=== PATIENT | male | born 1955 | race Caucasian/White ===

== ENCOUNTER 2016-08-19 12:17 | Inpatient (IN) | payer MEDICARE, MEDICAID ==
[~2016-08-19] VITALS: Ht 182.9 cm; Wt 98.9 kg
[~2016-08-19 12:17] MED LIST: CALC-250 PO; CEPH500C PO; CHOL20003 PO; CLOR3.755 PO; CYCL10TA45 PO; DESV50TA PO; FURO40TA4 PO; GLIM4TAB PO; INSU100C SQ; INSU100V6 SQ; KCL20TCR PO; L.AC1CAP6 PO; LACT10SO33 PO; LACT10SO5 PO; LEVO750T39 PO; LORA0.5T PO; MELA10TA2 PO; MELA1TAB15 PO; MILK THISTLE 1000 MG PO; MORP-33 PO; MORP15TA PO; MORP15TA4 PO; MPR22T TP; MUPI22OI TOP; MUPI22OI2 NS; NCT14P TD; NICO1PAT6 TD; OMEP20CA12 PO; PANT40TA PO; POTA20TA15 PO; RIFA550T PO; RIFA550T3 PO; RT-ALBUINH INH; SPIR50TA27 PO; SPIR50TA6 PO; SULF1TAB35 PO; TRAZ-144 PO; TRAZ-28 PO
--- NOTE | 2016-08-19 12:28 | History & Physicial ---
History of Present Illness History of Present Illness Reason for visit/HPI PT IS A 60 Y/O MALE WHO IS WELL KNOWN TO ME FROM CLINIC. HE PRESENTED TO MY OFFICE TODAY WITH COUGH, CONGESTION, WEAKNESS, AND WAS HYPOXIC WITH AN OXYGEN LEVEL OF 87% ON ROOM AIR. THE PATIENT WAS TOO DYSPNEIC TO BE DISCHARGED TO HOME IN THE CARE OF HIS FAMILY. Date of Admission 08/19/16 I consulted on this patient on 08/19/16 12:28 Attending Physician Brittany Lyn MD Admitting Physician Brittany Lyn MD Consult Allergies and Home Medications Allergies Coded Allergies: No Known Drug Allergies (Unverified , 03/08/13) Home Medications Albuterol Sulfate 18 Gm Hfa.aer.ad 2 PUFF INH Q4H PRN PRN SHORTNESS OF BREATH ( Reported) Azithromycin 250 Mg Tablet #3 250 MG PO DAILY start on 08/21/16 Prescribed by: BRITTANY LYN on 08/20/16912 Cefdinir 300 Mg Capsule #8 300 MG PO BID start on 08/21/16 Prescribed by: BRITTANY LYN on 08/20/16912 Cholecalciferol (Vitamin D3) 2,000 Unit Capsule 2,000 UNIT PO HS (Reported) Desvenlafaxine Succinate 50 Mg Tab.sr.24h 50 MG PO DAILY @ 1200 (Reported) Furosemide 40 Mg Tablet 20 MG PO DAILY@0800,1200 (Reported) TAKES 1/2 OF A (40 MG) TABLET Glimepiride 4 Mg Tablet 8 MG PO DAILY (Reported) TAKES 2 (4 MG) TABLETS Ipratropium/Albuterol Sulfate 3 Ml Ampul.neb #60 3 ML INH UD use three times daily x 4 days then one time daily thereafter and may use every 2 hours prn for acute shortness of breath Prescribed by: BRITTANY LYN on 08/20/16912 Lactobacillus Acidophilus 1 Each Capsule #21 1 EACH PO TID Prescribed by: BRITTANY LYN on 08/20/16912 Melatonin/Pyridoxine HCl (B6) 1 Each Tab.mphase 10 MG PO HS PRN PRN SLEEP ( Reported) Mirtazapine 15 Mg Tablet 15 MG PO HS (Reported) Morphine Sulfate 15 Mg Tablet.er 15 MG PO TID PRN PRN SEVERE PAIN (Reported) Omeprazole 20 Mg Capsule.dr 20 MG PO BID (Reported) Potassium Chloride 20 Meq Tab.er.prt 20 MEQ PO EVERY AFTERNOON (Reported) Rifaximin 550 Mg Tablet 550 MG PO BID (Reported) Trazodone HCl 50 Mg Tablet 50 MG PO HS (Reported) Past Jgfyndv-Nygqli-Logswv Hx Patient Social History Marrital Status: single Living Status: IN OWN HOME Employed/Student: retired Smoking Status: Current Everyday Smoker 2nd Hand Smoke Exposure: No Physical Abuse Screen: No Sexual Abuse: No Recent Foreign Travel: No Contact w/other who traveled: No Recent Hopitalizations: No Recent Infectious Disease Expo: No Immunizations Up To Date Tetanus Booster (TDap): Less than 5yrs Date of Pneumonia Vaccine: Jul 10, 2008 Date of Influenza Vaccine: May 10, 2015 Seasonal Allergies Seasonal Allergies: No Surgeries HX Surgeries: Yes (FACIAL AND HEAD RECONSTRUCTION SECONDARY TO TRAUMA PER PT; VENA CAVA FILTER) Surgeries: Vascular Surgery Respiratory Hx Respiratory Disorders: Yes Cardiovascular Hx Cardiovascular Disorders: No Neurological Hx Neurological Disorders: Yes (MEMORY LOSS) Reproductive System Hx Reproductive Disorders: No Sexually Transmitted Disease: No HIV/AIDS: No Genitourinary Hx Genitourinary Disorders: No Gastrointestinal Hx Gastrointestinal Disorders: Yes (HEAPTITIS C--CHRONIC LIVER FAILURE) Gastrointestinal Disorders: Gastroesophageal Reflux, Liver Disease/Jaundice, Hepatitis, Cirrhosis Musculoskeletal Hx Musculoskeletal Disorders: Yes (CHRONIC NECK PAIN, LUMBAR COMPRESSION FRACTURE ) Musculoskeletal Disorders: Chronic Back Pain, Fractures Endocrine Hx Endocrine Disorders: Yes (INSULIN + ORAL MEDICATIONS) Endocrine Disorders: Diabetes, Insulin dep HEENT HX ENT Disorders: No Loss of Vision: Denies Hearing Impairment: Denies Cancer Hx Cancer: Yes Cancer: Liver Psychosocial Hx Psychiatric Problems: Yes Behavioral Health Disorders: Anxiety Integumentary HX Skin/Integumentary Disorder: No Blood Transfusions Hx Blood Disorders: No Adverse Reaction to a Blood Tr: No Reviewed Nursing Assessment Reviewed/Agree w Nursing PMH: Yes Family Medical History Significant Family History: No Pertinent Family Hx, Hypertension Family Hx: Patient reports no known family medical history. Constitutional: No chills, No diaphoresis EENTM: No hoarseness, No mouth pain, No throat pain Respiratory: cough dyspnea on exertion short of breath wheezing Cardiovascular: No chest pain, No edema Gastrointestinal: No abdominal pain, No constipation, No diarrhea Genitourinary: no symptoms reported Musculoskeletal: back pain Psychiatric/Neurological: Anxiety All Other Systems Reviewed Negative Unless Noted: Yes Physical Exam Vital Signs Capillary Refill : General Appearance: WD/WN Mild Distress Eyes: Bilateral Eye EOMI, Bilateral Eye Normal Inspection, Bilateral Eye PERRL HEENT: PERRL/EOMI TMs Normal Normal ENT Inspection Pharynx Normal Neck: Full Range of Motion Supple Respiratory: Chest Non Tender Decreased Breath Sounds Wheezing Cardiovascular: Regular Rate, Rhythm Gastrointestinal: Normal Bowel Sounds No Organomegaly No Pulsatile Mass Non Tender Soft Rectal: Deferred Extremity: Normal Capillary Refill Normal Inspection Normal Range of Motion Non Tender No Calf Tenderness No Pedal Edema Neurologic/Psychiatric: Alert Oriented x3 No Motor/Sensory Deficits Normal Mood/Affect Skin: Warm/Dry Lymphatic: No Adenopathy Assessment/Plan Assessment and Plan COPD EXACERBATION PNEUMONIA HYPOXEMIA TOBACCOISM WEAKNESS HEPATITIS C CHRONIC PAIN PT STARTED ON COPD EXACERBATION AND PNEUMONIA PROTOCOL. PT HAD SIGNIFICANT IMPROVEMENT IN HIS STATUS WITH BREATHING TREATMENTS, IV ANTIBIOTICS, AND STEROID. EDUCATION ABOUT TOBACCOISM, MONITOR SYMPTOMS - IF HE CONTINUES TO IMPROVE HE WILL POTENTIALLY BE DISCHARGED TO HOME TOMORROW IF HE IS BETTER IN THE MORNING. RESTART PAIN MEDS Admission Diagnosis COPD EXACERBATION PNEUMONIA HYPOXEMIA TOBACCOISM WEAKNESS HEPATITIS C CHRONIC PAIN BRITTANY LYN MD Aug 19, 2016 12:28
--- OUTSIDE RECORDS SUMMARY | 2016-08-19 12:56 | XMS REPORT | Continuity of Care Document ---
Author Author [facility] Organization [facility] Address Unknown Phone Unavailable Care Team Providers Care Business Analytics Specialist Name Role Phone Osei Lyn PCP [phone] Source Comments Some departments are not documenting in the electronic medical record. If you do not see the information that you expected, contact Release of Information in the Health Information Management department at [phone] for further assistance in locating additional records.[facility] Active Allergies and Adverse Reactions No Known Allergies Current Medications Prescription Sig. Disp. Refills Start End Date Status Date desvenlafaxine(+) Take 50 mg by mouth Active (PRISTIQ) 50 mg PO tablet daily. glimepiride (AMARYL) 4 mg Take 8 mg by mouth daily Active tablet with breakfast. morphine SR (MS CONTIN; Take 15 mg by mouth three Active ORAMORPH SR) 15 mg tablet times daily as needed traZODone (DESYREL) 50 mg Take 100 mg by mouth at Active tablet bedtime daily. melatonin 10 mg tab Take 1 Tab by mouth at Active bedtime daily. cholecalciferol (VITAMIN Take 2,000 Units by mouth Active D-3) 1,000 units tablet daily. Indications: OTC supplement potassium chloride SR Take 20 mEq by mouth Active (K-DUR) 20 mEq tablet daily. furosemide (LASIX) 40 mg Take 40 mg by mouth Active tablet daily. omeprazole DR(+) Take 20 mg by mouth twice Active (PRILOSEC) 20 mg capsule daily. albuterol (VENTOLIN HFA, Inhale 1 Puff by mouth Active PROAIR HFA) 90 every 6 hours as needed mcg/actuation inhaler for Wheezing. lactulose 10 gram/15 mL Take 30 mL by mouth three 1892 mL 2 05/01/20 Active oral solution times daily. Titrate to 16 3-4 BMs/day rifAXIMin (XIFAXAN) 550 Take 1 Tab by mouth twice 60 Tab 11 06/24/20 Active mg tablet daily. 16 Active Problems Problem Noted Date End-stage liver disease (HCC) 05/10/2015 Hepatic encephalopathy (HCC) 05/10/2015 Esophageal varices (HCC) 05/10/2015 S/P TIPS (transjugular intrahepatic portosystemic shunt) 05/10/2015 Overview: Placed in 2010 Revision done in 11/2014 Type 2 diabetes mellitus with complication (HCC) 05/10/2015 Tobacco use 05/10/2015 Anemia 05/10/2015 Umbilical hernia 04/17/2015 HCC (hepatocellular carcinoma) (HCC) 02/21/2015 Major depressive disorder, recurrent episode, moderate (HCC) 03/22/2012 Most Recent Encounters Date Type Specialty Providers Description 07/31/2016 Orders Only Hepatology Sara Calderon End-stage liver disease (HCC); Hepatic fibrosis (HCC); End stage liver disease (HCC) 07/17/2016 Orders Only Hepatology Mely Jaeger APRN End stage liver disease (HCC) (Primary Dx) 07/17/2016 Orders Only Hepatology Mely Jaeger APRN Liver lesion ( Primary Dx); End stage liver disease (HCC) 07/17/2016 Result Letter Hepatology Blank Gordon RN 07/09/2016 Orders Only Hepatology Sara Calderon End-stage liver disease (HCC); Hepatocellular carcinoma (HCC); Type 2 diabetes mellitus with complication, without long-term current use of insulin (HCC) 07/07/2016 Orders Only Hepatology Mely Jaeger APRN End-stage liver disease (HCC) (Primary Dx); Hepatocellular carcinoma (HCC); Type 2 diabetes mellitus with complication, without long-term current use of insulin (HCC) 06/25/2016 Documentation Hepatology Aiden Basilio MD 06/24/2016 Scan Only Transplant Surgery Parisa Sheriff LPN 06/24/2016 Telephone Hepatology Mely Jaeger APRN Medication Refill 06/23/2016 Orders Only Hepatology Sara Calderon End-stage liver disease (HCC); Hepatic fibrosis (HCC) 06/18/2016 Orders Only Hepatology Mely Jaeger APRN End-stage liver disease (HCC) (Primary Dx); Hepatic fibrosis (HCC) 05/26/2016 Hospital Radiology Mely Jaeger APRN Encounter 05/26/2016 Orders Only Hepatology Calderon Sara End-stage liver disease (HCC) 05/26/2016 Screening Form 05/23/2016 Orders Only Hepatology Mely Jaeger APRN End-stage liver disease (HCC); HCC (hepatocellular carcinoma) (HCC); Type 2 diabetes mellitus with complication, without long-term current use of insulin (HCC); S/P TIPS (transjugular intrahepatic portosystemic shunt); Hepatic encephalopathy (HCC); Esophageal varices without bleeding, unspecified esophageal varices type (HCC); Screening for osteoporosis; Carcinoma of liver (HCC); Hepatic fibrosis (HCC); Routine adult health maintenance 05/22/2016 Orders Only Hepatology Mely Jaeger APRN End-stage liver disease (HCC) (Primary Dx); Hepatocellular carcinoma (HCC) Immunizations Name Dates Previously Given Next Due Tdap Vaccine 01/11/2009 Social History Tobacco Use Types Packs/Day Years Used Date Current Every Day Smoker Cigarettes 0.25 45 Smokeless Tobacco: Never Used Tobacco Cessation: Ready to Quit: Yes Comments: trying to quit Alcohol Use Drinks/Week oz/Week Comments No quit '08; moderate alcohol intake prior (up to 8 drinks/week) Last Filed Vital Signs Vital Sign Reading Time Taken Blood Pressure 96/80 05/01/2016 11:36 AM CDT Pulse 64 05/01/2016 11:36 AM CDT Temperature 36.6 C (97.8 F) 05/01/2016 11:36 AM CDT Respiratory Rate 20 05/01/2016 11:36 AM CDT Height 1.829 m (6') 05/01/2016 11:36 AM CDT Weight 102.059 kg (225 lb) 05/26/2016 10:50 AM CDT Body Mass Index 30.51 05/26/2016 10:50 AM CDT Oxygen Saturation 94% 05/01/2016 11:36 AM CDT Plan of Care Date Type Specialty Providers Description 08/28/2016 Appointment Hepatology Aiden Basilio MD [id number] [place] [address] [phone] (Fax) 11/17/2016 Appointment Radiology Mely Jaeger APRN [address] [place] [address] [phone] (Fax) Health Maintenance Due Date Last Done Comments Physical (Comprehensive) 1961 Exam Dilated Eye Exam 1972 Foot Exam 1972 Microalbumin 1972 Pneumonia Vaccine (Dm) 1972 Shingles Vaccine 2014 Influenza Vaccine 04/10/2016 Hba1c 05/02/2016 10/31/2015, 11/14/2014, 01/16/2014 Additional history exists Tetanus Vaccine 01/11/2019 01/11/2009 Colorectal Cancer 09/05/2020 09/05/2010, 07/11/2008, 06/09/2008 Screening Pertussis Vaccine Completed 01/11/2009 Results from Last 3 Months BASIC METABOLIC PANEL (07/31/2016 9:15 AM)Only the most recent of 2 results within the time period is included. Component Value Range Sodium 137 132-145 mEq/L Potassium 3.7 3.5-5.5 mEq/L Chloride 105 95-110 mEq/L CO2 24.0 24.0-34.0 meq/l Anion Gap 12 6-14 Glucose 205 (H) 60-125 mg/dL Creatinine 0.7 0.6-1.5 mg/dL eGFR Non 132 >59 ml/min/1.73m2 Blood Urea Nitrogen 12 9-27 mg/dL Calcium 8.4 (L) 8.5-10.8 mg/dL Specimen Blood Narrative Outside Lab Verified by Sara Gutierrez on 07/31/2016. CBC AND DIFF (07/31/2016 9:15 AM)Only the most recent of 2 results within the time period is included. Component Value Range White Blood Cells 5.32 5.00-10.0 k/ul RBC 4.36 4.20-5.40 M/ul Hemoglobin 13.7 (L) 14.0-17.0 g/dl Hematocrit 40.4 (L) 42.0-52.0 % MCV 92.7 80.0-97.0 fl MCHC 33.9 32.0-36.0 pg Platelet Count 52 (L) 150-400 K/uL Neutrophils 68.3 37.0-80.0 % Lymphocytes 17.1 10.0-50.0 % Monocytes 10.5 0.00-12.0 % Eosinophil 3.9 0.0-7.0 % Basophil 0.2 0.0-2.5 % Absolute Lymph Count 0.91 0.60-3.40 K/uL Absolute Monocyte Count 0.6 0.0-0.9 K/uL Absolute Neutrophil Count 3.63 3.63 K/uL Absolute Eosinophil Count 0.2 0.2 K/uL Absolute Basophil Count 0.0 0.0 K/uL Specimen Blood Narrative Outside Lab Verified by Sara Gutierrez on 07/31/2016. COMPREHENSIVE METABOLIC PANEL (06/17/2016 3:00 PM)Only the most recent of 2 results within the time period is included. Component Value Range Sodium 133 132-145 mEq/L Potassium 3.8 3.5-5.5 mEq/L Chloride 102 95-110 meq/l CO2 26.0 24.0-34.0 meq/l Glucose 272 (H) 60-125 mg/dL Blood Urea Nitrogen 9 9-27 mg/dL eGFR Non 168 >59 Anion Gap 9 6-14 Calcium 8.0 (L) 8.5-10.8 mg/dL Creatinine 0.5 (L) 0.6-1.5 mg/dl Specimen Blood Narrative Outside Lab Verified by Sara Gutierrez on 06/18/2016. CT ABDOMEN WO/W CONTRAST (05/26/2016 11:55 AM) Impressions Decrease in size of treated hepatomas in segment 4A and 4B without significant contrast enhancement (liver RADS treated with low probability of residual/ recurrent neoplasm). Finalized by Jimbo Metcalf M.D. on 05/26/2016 3:02 PM. Dictated by Jimbo Metcalf M.D. on 05/26/2016 2:[address] abdomen Indication: 60-year-old gentleman with end-stage liver disease and hepatocellular carcinoma for restaging Technique: Standard CT liver technique was used with precontrast scans for the abdomen, arterial, venous phase and delayed scans using Isovue-370 IV. Comparison is made with previous study of February 22, 2016 and November 22, 2015. Findings: Liver lesions: Segment 4A: There is mild decrease in size of the low density treated lesion in the dome of segment 4A now measuring 4.5 cm longest axis on image 02/01 compared with 5.7 cm previously.Some intrinsic high density is again noted along the medial margin of the lesion.No enhancement is identified. Segment 4B: There is decrease in size of the treated low density lesion measuring 3.0 cm longest axis on image 6/42 compared with 4.0 cm previously. No new lesions are identified. Cirrhosis and portal venous hypertension are again noted with unchanged mild splenomegaly, mild varices and no ascites.Embolization coils are again noted in the gastrohepatic region.A metallic TIPS remains in place. There is no adrenal mass.The kidneys are unremarkable.The pancreas appears normal.There is no central retroperitoneal adenopathy.Aorta remains normal in caliber with mild calcified plaque.Bowel loops are normal in caliber. Moderate lumbar spondylosis is again noted with stable old moderate central type compression deformity of L1. Procedure Note Interface, Radiant Results - ThuMay 26, 2016 3:[address] abdomen Indication: 60-year-old gentleman with end-stage liver disease and hepatocellular carcinoma for restaging Technique: Standard CT liver technique was used with precontrast scans for the abdomen, arterial, venous phase and delayed scans using Isovue-370 IV. Comparison is made with previous study of February 22, 2016 and November 22, 2015. Findings: Liver lesions: Segment 4A: There is mild decrease in size of the low density treated lesion in the dome of segment 4A now measuring 4.5 cm longest axis on image 6/25 compared with 5.7 cm previously. Some intrinsic high density is again noted along the medial margin of the lesion. No enhancement is identified. Segment 4B: There is decrease in size of the treated low density lesion measuring 3.0 cm longest axis on image 6/42 compared with 4.0 cm previously. No new lesions are identified. Cirrhosis and portal venous hypertension are again noted with unchanged mild splenomegaly, mild varices and no ascites. Embolization coils are again noted in the gastrohepatic region. A metallic TIPS remains in place. There is no adrenal mass. The kidneys are unremarkable. The pancreas appears normal. There is no central retroperitoneal adenopathy. Aorta remains normal in caliber with mild calcified plaque. Bowel loops are normal in caliber. Moderate lumbar spondylosis is again noted with stable old moderate central type compression deformity of L1. IMPRESSION Decrease in size of treated hepatomas in segment 4A and 4B without significant contrast enhancement (liver RADS treated with low probability of residual/ recurrent neoplasm). Finalized by Jimbo Metcalf M.D. on 05/26/2016 3:02 PM. Dictated by Jimbo Metcalf M.D. on 05/26/2016 2:52 PM. PROTIME INR (PT) (05/21/2016 12:15 PM) Component Value Range INR 1.4 (H) 0.9-1.1 Protime 16.4 (H) 11.3-14.1 sec Specimen Blood Narrative Outside Lab Verified by Sara Gutierrez on 05/22/2016.
[2016-08-19 13:00] VITALS: BP 129/68
[2016-08-19] MEDS ORDERED: methylPREDNISolone 125 MG (Solu-MEDROL) VIAL IVP NR (13:01)
[2016-08-19] MEDS: NS IV 1000 ML 1,000 ML IV SCH ×2 (13:05→23:20)
[2016-08-19] MEDS: cefTRIAXone INJECTION 1,000 MG in NORMAL SALINE (BAXTER MINI) 50 ML IV SCH (13:06)
[2016-08-19] MEDS: NICOTINE 7 MG (NICODERM) PATCH TD SCH (13:13)
[2016-08-19] MEDS: ENOXAPARIN 40 MG/0.4 ML (LOVENOX) SYR SC SCH (13:13)
[2016-08-19] MEDS ORDERED: CATHETER FLUSH 10 ML SYR IV PRN (13:15)
[2016-08-19] MEDS ORDERED: GLIM4TAB PO (13:17)
[2016-08-19] MEDS ORDERED: CIPR500T4 PO (13:17)
[2016-08-19] MEDS ORDERED: SPIR50TA2 PO (13:17)
[2016-08-19] MEDS ORDERED: MIRT15TA6 PO (13:17)
[2016-08-19 13:27] LABS: BASOPHILS % (AUTO) 1 % (0-10); EOSINOPHILS # (AUTO) 0.1 10^3/uL (0.0-0.3); EOSINOPHILS % (AUTO) 3 % (0-10); LYMPHOCYTES # (AUTO) 0.5 X 10^3 (1.0-4.0); LYMPHOCYTES % (AUTO) 13 % (12-44); MEAN CORPUSCULAR HEMOGLOBIN 31 PG (25-34); MEAN CORPUSCULAR HGB CONC 35 G/DL (32-36); MEAN CORPUSCULAR VOLUME 88 FL (80-99); MEAN PLATELET VOLUME 12.4 FL (7.4-10.4); MONOCYTES # (AUTO) 0.5 X 10^3 (0.0-1.0); MONOCYTES % (AUTO) 11 % (0-12); NEUTROPHILS # (AUTO) 3.1 X 10^3 (1.8-7.8); NEUTROPHILS % (AUTO) 73 % (42-75); PLATELET COUNT 49 10^3/uL (130-400); RED BLOOD COUNT 4.26 10^6/uL (4.35-5.85); RED CELL DISTRIBUTION WIDTH 15.2 % (10.0-14.5); WHITE BLOOD COUNT 4.3 10^3/uL (4.3-11.0)
[2016-08-19] MEDS ORDERED: RT-ALBUTEROL/IPRATROPIUM 3 ML (DUONEB) VIAL INH PRN (13:30)
[2016-08-19 13:41] LABS: ANION GAP 6 MMOL/L (5-14); BLOOD UREA NITROGEN 9 MG/DL (7-18); BUN/CREATININE RATIO 13; CALCIUM 8.4 MG/DL (8.5-10.1); CARBON DIOXIDE 27 MMOL/L (21-32); CHLORIDE 106 MMOL/L (98-107); CREATININE SERUM 0.67 MG/DL (0.60-1.30); GFR ESTIMATED > 60; GLUCOSE 138 MG/DL (70-105); POTASSIUM 3.8 MMOL/L (3.6-5.0); SODIUM 139 MMOL/L (135-145)
--- NOTE | 2016-08-19 13:43 | Diagnostic Imaging Report ---
INDICATION: Dyspnea and fever x 1 week. DISCUSSION: Two views of the chest were obtained with comparison made to 04/30/2016. The underlying COPD is stable. No focal consolidation, pleural fluid, or pneumothorax. Stable normal heart size. A vascular coil mass is again noted within the epigastric region. Age-related degenerative changes are noted throughout the thoracic spine. IMPRESSION: No acute cardiopulmonary process. Dictated by: Dictated on workstation # [id number]
[2016-08-19] MEDS: RT-ALBUTEROL/IPRATROPIUM 3 ML (DUONEB) VIAL INH SCH ×3 (14:00→21:46)
[2016-08-19] MEDS ORDERED: AZITHROMYCIN IV ADD-VANTAGE 500 MG in SODIUM CHLORIDE (ADD-VANTAGE) 250 ML IV ONE (14:00)
[2016-08-19] MEDS ORDERED: FLU TRIvalent (5 YOA+) 2016-17 (AFLURIA) 0.5 ML IM ONE (15:00)
[2016-08-19 16:00] VITALS: BP 120/75
[2016-08-19] MEDS: methylPREDNISolone 125 MG (Solu-MEDROL) VIAL IVP SCH ×2 (17:24→23:20)
[2016-08-19] MEDS: morphine ER 15 MG (MS CONTIN) TAB PO PRN (19:58)
[2016-08-19 20:13] VITALS: BP 136/72
[2016-08-19] MEDS ORDERED: traZODone 50 MG (DESYREL) TAB PO SCH (21:00)
[2016-08-19] MEDS ORDERED: MIRTAZAPINE 15 MG (REMERON) TAB PO SCH (21:00)
[2016-08-19] MEDS ORDERED: RIFAXIMIN 550 MG PO SCH (21:00)
[2016-08-19] MEDS ORDERED: OMEPRAZOLE 20 MG (PriLOSEC) CAP NON-FORMULARY PO SCH (21:00)
[2016-08-20 00:07] VITALS: BP 122/70
[2016-08-20] MEDS: RT-ALBUTEROL/IPRATROPIUM 3 ML (DUONEB) VIAL INH SCH ×4 (02:41→14:40)
[2016-08-20 03:05] VITALS: BP 124/71
[2016-08-20] MEDS: morphine ER 15 MG (MS CONTIN) TAB PO PRN (03:09)
[2016-08-20] MEDS: methylPREDNISolone 125 MG (Solu-MEDROL) VIAL IVP SCH ×3 (05:26→17:28)
[2016-08-20] MEDS ORDERED: VENlafaxine XR 75 MG (EFFEXOR XR) CAP PO SCH (07:00)
[2016-08-20] MEDS ORDERED: PANTOPRAZOLE 20 MG TABLET (PROTONIX) PO SCH (07:00)
[2016-08-20 08:00] VITALS: BP 161/56
[2016-08-20] MEDS ORDERED: MELA1TAB20 PO (08:53)
[2016-08-20] MEDS ORDERED: FUROSEMIDE 40 MG (LASIX) TAB PO SCH (09:00)
[2016-08-20] MEDS ORDERED: AZITHROMYCIN 250 MG TAB (ZITHROMAX) PO SCH (09:00)
[2016-08-20] MEDS ORDERED: SPIRONOLACTONE 25 MG (ALDACTONE) TAB PO SCH (09:00)
[2016-08-20] MEDS ORDERED: NON-FORMULARY MEDICATION 1 EA EA (Spironolactone 50 MG) PO SCH (09:00)
[2016-08-20] MEDS ORDERED: NICOTINE PATCH REMOVAL TP SCH (09:00)
[2016-08-20] MEDS ORDERED: GLIMEPIRIDE 4 MG (AMARYL) TAB PO SCH (09:00)
--- NOTE | 2016-08-20 09:09 | Discharge Summary ---
Diagnosis/Chief Complaint Date of Admission Aug 19, 2016 at 12:52 Date of Discharge Discharge Date: Aug 20, 2016 Admission Diagnosis Admission Diagnosis COPD EXACERBATION PNEUMONIA HYPOXEMIA TOBACCOISM WEAKNESS HEPATITIS C CHRONIC PAIN Discharge Diagnosis COPD EXACERBATION PNEUMONIA HYPOXEMIA TOBACCOISM WEAKNESS HEPATITIS C CHRONIC PAIN Reason Hospital Visit PT PRESENTED TO MY OFFICE ON 08/19/16 WITH DYSPNEA, ACUTE SHORTNESS OF BREATH AND HYPOXEMIA. HE CONTINUES TO SMOKE AND HAD BEEN HAVING COUGH AND SHORTNESS OF BREATH DESPITE DECREASE IN SMOKING, HIS SISTER WAS ACUTELY CONCERNED AND THE PT WAS ADMITTED TO THE HOSPITAL FOR CONCERN FOR PNEUMONIA IN THE FACE OF IMMUNOSUPPRESSION. Discharge Summary Discharge Physical Examination Allergies: Coded Allergies: No Known Drug Allergies (Unverified , 03/08/13) Vitals & I&Os General Appearance: Alert, Oriented X3, Cooperative HEENT: Atraumatic, PERRLA Respiratory: Other (DECREASED AIR MOVEMENT BUT BETTER THAN ON ADMISSION, AND NO LONGER WHEEZING) Cardiovascular: Regular Rate Abdominal: Normal Bowel Sounds, Soft Extremities: No Clubbing Skin: No Rashes Neuro: Normal Gait, Strength at 5/5 X4 Ext, Cranial Nerves 3-12 NL Psych/Mental Status: Mental Status NL, Mood NL Hospital Course COPD EXACERBATION PNEUMONIA HYPOXEMIA TOBACCOISM WEAKNESS HEPATITIS C CHRONIC PAIN PT STARTED ON PNEUMONIA PROTOCOL, STEROIDS, BREATHING TREATMENTS, AND PT SHOWED TREMENDOUS IMPROVEMENT IN SYMPTOMS- DISCHARGED ON APPROPRIATE MEDICATION - SEE MED DISCHARGE LIST. RESTARTED HOME MEDS. Discharge Condition at discharge IMPROVED Instructions to patient/family Please see electonic discharge instructions given to patient. Discharge Medications Reviewed and agree with Discharge Medication list on patient's Discharge Instruction sheet Clinical Quality Measures DVT/VTE Risk/Contraindication: Risk Factor Score Per Nursin RFS Level Per Nursing on Admit: 4+=Very High BRITTANY RIOS MD Aug 20, 2016 09:09
[2016-08-20] MEDS: NICOTINE 7 MG (NICODERM) PATCH TD SCH (09:12)
[2016-08-20] MEDS ORDERED: AZIT250T5 PO (09:13)
[2016-08-20] MEDS ORDERED: IPRA3AMP INH (09:13)
[2016-08-20] MEDS ORDERED: LACT1CAP8 PO (09:13)
[2016-08-20] MEDS ORDERED: CEFD300C3 PO (09:13)
--- NOTE | 2016-08-20 09:15 | Discharge Inst-Complex ---
PDI Med Rec & Follow Up Appt. New Medications: Cefdinir (Cefdinir) 300 Mg Capsule 300 MG PO BID start on 08/21/16 #8 CAP Lactobacillus Acidophilus (Acidophilus) 1 Each Capsule 1 EACH PO TID #21 CAP Azithromycin (Azithromycin) 250 Mg Tablet 250 MG PO DAILY start on 08/21/16 #3 TAB Ipratropium/Albuterol Sulfate (Iprat-Albut 0.5-3(2.5) mg/3 ml) 3 Ml Ampul.neb 3 ML INH UD use three times daily x 4 days then one time daily thereafter and may use every 2 hours prn for acute shortness of breath #60 Ref 4 EACH Continued Medications: Albuterol Sulfate (Ventolin Hfa) 18 Gm Hfa.aer.ad 2 PUFF INH Q4H PRN SHORTNESS OF BREATH Cholecalciferol (Vitamin D3) (Vitamin D3) 2,000 Unit Capsule 2000 UNIT PO HS Desvenlafaxine Succinate (Pristiq) 50 Mg Tab.sr.24h 50 MG PO DAILY @ 1200 Furosemide (Furosemide) 40 Mg Tablet 20 MG PO DAILY@0800,1200 TAKES 1/2 OF A (40 MG) TABLET Glimepiride (Glimepiride) 4 Mg Tablet 8 MG PO DAILY TAKES 2 (4 MG) TABLETS Melatonin/Pyridoxine HCl (B6) (Melatonin 10 mg Tablet) 1 Each Tab.mphase 10 MG PO HS PRN SLEEP MG Mirtazapine (Mirtazapine) 15 Mg Tablet 15 MG PO HS Morphine Sulfate (Morphine Sulfate ER) 15 Mg Tablet.er 15 MG PO TID PRN SEVERE PAIN Omeprazole (Omeprazole) 20 Mg Capsule.dr 20 MG PO BID Potassium Chloride (Potassium Chloride) 20 Meq Tab.er.prt 20 MEQ PO EVERY AFTERNOON Rifaximin (Xifaxan) 550 Mg Tablet 550 MG PO BID Trazodone HCl (Trazodone HCl) 50 Mg Tablet 50 MG PO HS Discontinued Medications: Ciprofloxacin HCl (Ciprofloxacin HCl) 500 Mg Tablet 500 MG PO BID FILLED 08/18/16 #20 FOR A 10 DAY THERAPY Prescription: Transmitted to Pharmacy Patient Instructions: call [facility] office for follow up in 10 days - 14 days Activity, Diet and PDI Resume Normal Activity: Yes Discharge Diet: Other Diet (resume home diet) Drink 6-8 Glasses of Fluid/Day: Yes Return to The Hospital For: any concern for worsening illness or lifethreatening injury Symptoms to Reoprt to : Fever Over 101 Degrees F, Pain/Pressure in Chest, Pain/Pressure in Shoulder, Diarrhea(Persistant), Shortness of Breath For Problems or Questions: Contact Your Physician, Go to Emergency Room Infection Signs and Symptoms: Temperature Above 101 F BRITTANY RIOS MD Aug 20, 2016 09:15
[2016-08-20] MEDS: NS IV 1000 ML 1,000 ML IV SCH (09:19)
[2016-08-20] MEDS ORDERED: fentaNYL INJECTION 100 MCG/2 ML AMP ONE (11:16)
[2016-08-20] MEDS ORDERED: DESVENLAFAXINE SUCC 50 MG (PRISTIQ) TAB NON-FORMULARY PO SCH (12:00)
[2016-08-20] MEDS ORDERED: KCL 20 MEQ TAB (K-DUR) PO SCH (12:00)
[2016-08-20 12:18] VITALS: BP 131/63
[2016-08-20] MEDS: cefTRIAXone INJECTION 1,000 MG in NORMAL SALINE (BAXTER MINI) 50 ML IV SCH (12:32)
[2016-08-20] MEDS: ENOXAPARIN 40 MG/0.4 ML (LOVENOX) SYR SC SCH (12:33)
[2016-08-20 16:00] VITALS: BP 134/66
--- NOTE | 2016-08-21 15:59 | Physician Query-General Query ---
Physician Query-General Query to Physician: All dictated reports are in draft with no dx listed. What was principal reason patient was admitted? Does patient have pneumonia? Chest x-ray shows COPD, do you agree that patient has COPD? PHYSICIAN RESPONSE: Based on the clinical findings in the record, please respond to the query above on this document as an addendum. Possible, probable, or questionable diagnosis can be coded for INPATIENTS ONLY. Physician Response: Physician Response SEE REPORTS - NOW SIGNED If you have questions please contact: Ceramics Engineer: Ext: Thank you for your time and cooperation. Clinical Senior Strategy Analyst/Ceramics Engineer This is a permanent part of the medical record YOBANI HENNESSY Aug 21, 2016 15:59 BRITTANY RIOS MD Sep 01, 2016 16:21
== END 2016-08-20 17:40 | disposition home or self-care (01) | DRG 190 ==
LOC: 4TH 12:52
PROVIDERS: ADMIT Family Medicine; ATTEND Family Medicine
DX: J44.0 Chronic obstructive pulmonary disease with (acute) lower respiratory infection (principal); J18.9 Pneumonia, unspecified organism; J44.1 Chronic obstructive pulmonary disease with (acute) exacerbation; R09.02 Hypoxemia; K74.60 Unspecified cirrhosis of liver; K72.10 Chronic hepatic failure without coma; E11.9 Type 2 diabetes mellitus without complications; K21.9 Gastro-esophageal reflux disease without esophagitis; M54.2 Cervicalgia; F41.9 Anxiety disorder, unspecified; Z86.19 Personal history of other infectious and parasitic diseases; Z79.4 Long term (current) use of insulin; F17.210 Nicotine dependence, cigarettes, uncomplicated; R53.1 Weakness; B19.20 Unspecified viral hepatitis C without hepatic coma; G89.29 Other chronic pain; Z23 Encounter for immunization
CPT/HCPCS: 36415; 71020; 80048; 83605; 85025; 87040; 87804; 94640; 94760

== ENCOUNTER 2016-08-28 07:19 | Day surgery (SDC) | payer MEDICARE, MEDICAID ==
[~2016-08-28] VITALS: Ht 182.9 cm; Wt 100.7 kg
[~2016-08-28 07:19] MED LIST changes: +AZIT250T5 PO; +CEFD300C3 PO; +CIPR500T4 PO; +IPRA3AMP INH; +LACT1CAP8 PO; +MELA1TAB20 PO; +MIRT15TA6 PO; +SPIR50TA2 PO
--- OUTSIDE RECORDS SUMMARY | 2016-08-28 07:26 | XMS REPORT | Continuity of Care Document ---
Author Author [facility] Organization [facility] Address Unknown Phone Unavailable Care Team Providers Care Drapery Inspector Name Role Phone Osei Lyn PCP [phone] Source Comments Some departments are not documenting in the electronic medical record. If you do not see the information that you expected, contact Release of Information in the Health Information Management department at [phone] for further assistance in locating additional records.[facility] Active Allergies and Adverse Reactions No Known [...] Recent Encounters Date Type Specialty Providers Description 08/22/2016 Telephone Hepatology Aiden Basilio MD Patient Reminder Call 07/31/2016 Orders Only Hepatology Sara Calderon End-stage liver disease (HCC); Hepatic fibrosis (HCC); End stage liver disease (HCC) 07/17/2016 Orders Only Hepatology Mely Jaeger APRN End stage liver disease (HCC) (Primary Dx) 07/17/2016 Orders Only Hepatology Mely Jaeger APRN Liver lesion ( Primary Dx); End stage liver disease (HCC) 07/17/2016 Result Letter HepatBlank Santos, AISHA 07/09/2016 Orders Only Hepatology Sara Calderon End-stage liver disease (HCC); Hepatocellular carcinoma (HCC); Type 2 diabetes mellitus with complication, without long-term current use of insulin (HCC) 07/07/2016 Orders Only HepatMely Martinez APRN End-stage liver disease (HCC) (Primary Dx); Hepatocellular carcinoma (HCC); Type 2 diabetes mellitus with complication, without long-term current use of insulin (HCC) 06/25/2016 Documentation Hepatology Aiden Basilio MD 06/24/2016 Scan Only Transplant Surgery Parisa Sheriff LPN 06/24/2016 Telephone HepatMely Martinez APRN Medication Refill 06/23/2016 Orders Only Hepatology Sara Calderon End-stage liver disease (HCC); Hepatic fibrosis (HCC) 06/18/2016 Orders Only Hepatology Mely Jaeger APRN End-stage liver disease (HCC) (Primary Dx); Hepatic fibrosis (HCC) Immunizations Name Dates Previously Given Next [...] of Care Date Type Specialty Providers Description 11/17/2016 Appointment Radiology Mely Jaeger APRN [address] [facility] [address] [place] [address] [phone] (Fax) Health Maintenance Due Date Last Done [...] on 07/31/2016. CBC AND DIFF (07/31/2016 9:15 AM) Component Value Range White Blood Cells 5.32 [...] on 07/31/2016. COMPREHENSIVE METABOLIC PANEL (06/17/2016 3:00 PM) Component Value Range Sodium 133 132-145 mEq/L [...]
[2016-08-28 07:49] LABS: BASOPHILS % (AUTO) 0 % (0-10); EOSINOPHILS # (AUTO) 0.1 10^3/uL (0.0-0.3); EOSINOPHILS % (AUTO) 1 % (0-10); LYMPHOCYTES # (AUTO) 0.4 X 10^3 (1.0-4.0); LYMPHOCYTES % (AUTO) 6 % (12-44); MEAN CORPUSCULAR HEMOGLOBIN 30 PG (25-34); MEAN CORPUSCULAR HGB CONC 35 G/DL (32-36); MEAN CORPUSCULAR VOLUME 87 FL (80-99); MEAN PLATELET VOLUME 12.3 FL (7.4-10.4); MONOCYTES # (AUTO) 0.9 X 10^3 (0.0-1.0); MONOCYTES % (AUTO) 13 % (0-12); NEUTROPHILS # (AUTO) 5.4 X 10^3 (1.8-7.8); NEUTROPHILS % (AUTO) 79 % (42-75); PLATELET COUNT 99 10^3/uL (130-400); RED BLOOD COUNT 4.35 10^6/uL (4.35-5.85); RED CELL DISTRIBUTION WIDTH 14.6 % (10.0-14.5); WHITE BLOOD COUNT 6.8 10^3/uL (4.3-11.0)
[2016-08-28 08:10] LABS: BAND NEUTROPHILS 1 %; EOSINOPHILS % (MANUAL) 3 %; LYMPHOCYTES % (MANUAL) 4 %; NEUTROPHILS % (MANUAL) 81 %
--- NOTE | 2016-08-28 08:11 | Diagnostic Imaging Report ---
INDICATION: Shortness of breath EXAMINATION: Frontal chest obtained at 802 hours a.m. and compared to 08/19/16. Heart and mediastinal silhouette are normal in appearance. There is some minimal linear scarring in the left base. There is no pneumothorax or pleural fluid. IMPRESSION: Mild linear scarring or atelectasis in left base. Otherwise negative chest. No focal infiltrate. Dictated by: Dictated on workstation # [id number]
[2016-08-28 08:16] LABS: ALANINE AMINOTRANSFERASE 27 U/L (0-55); ALBUMIN 3.1 G/DL (3.2-4.5); ANION GAP 12 MMOL/L (5-14); ASPARTATE AMINO TRANSFERASE 37 U/L (5-34); BILIRUBIN,TOTAL 2.4 MG/DL (0.1-1.0); BLOOD UREA NITROGEN 11 MG/DL (7-18); BUN/CREATININE RATIO 15; CALCIUM 8.2 MG/DL (8.5-10.1); CARBON DIOXIDE 25 MMOL/L (21-32); CHLORIDE 98 MMOL/L (98-107); CREATININE SERUM 0.75 MG/DL (0.60-1.30); GFR ESTIMATED > 60; GLUCOSE 120 MG/DL (70-105); POTASSIUM 3.8 MMOL/L (3.6-5.0); SODIUM 135 MMOL/L (135-145); TOTAL PROTEIN 6.9 G/DL (6.4-8.2)
[2016-08-28 08:18] LABS: POLYCHROMASIA SLIGHT
[2016-08-28 08:19] LABS: ANISOCYTOSIS SLIGHT; POIKILOCYTOSIS SLIGHT
--- NOTE | 2016-08-28 09:17 | ED General ---
General Chief Complaint: Respiratory Problems Stated Complaint: SOA/NAUSEA Nursing Triage Note: PT AMBULATED TO ROOM 7 PT IS STATES IS SOA, PT HAS VERY LARGE DISTENDED ABD Nursing Sepsis Screen: No Definite Risk Source of Information: Patient Exam Limitations: No Limitations History of Present Illness Time Seen by Provider: 09:15 Initial Comments The patient is a 60-year-old white male who presents with complaints of shortness of breath. He was admitted last week by Dr. Lny for acute shortness of breath. This was reversed with in one day and he was discharged. His caregivers report that since that time his abdomen has seemed to become progressively swollen. He has hepatitis C with cirrhosis and a previous TIPS procedure. He is seen at [facility] for this problem. They report that fluid has not been a big problem in the time that they have cared for him. It is unclear whether he has ever had a paracentesis. Timing/Duration: 1 Week Associated Systoms: Weakness Allergies and Home Medications Allergies Coded Allergies: No Known Drug Allergies (Unverified , 03/08/13) Home Medications Albuterol Sulfate 18 Gm Hfa.aer.ad 2 PUFF INH Q4H PRN PRN SHORTNESS OF BREATH ( Reported) Azithromycin 250 Mg Tablet #3 250 MG PO DAILY start on 08/21/16 Prescribed by: BRITTANY YLN on 08/20/16912 Cefdinir 300 Mg Capsule #8 300 MG PO BID start on 08/21/16 Prescribed by: BRITTANY LYN on 08/20/16912 Cholecalciferol (Vitamin D3) 2,000 Unit Capsule 2,000 UNIT PO HS (Reported) Desvenlafaxine Succinate 50 Mg Tab.sr.24h 50 MG PO DAILY @ 1200 (Reported) Furosemide 40 Mg Tablet 20 MG PO DAILY@0800,1200 (Reported) TAKES 1/2 OF A (40 MG) TABLET Glimepiride 4 Mg Tablet 8 MG PO DAILY (Reported) TAKES 2 (4 MG) TABLETS Ipratropium/Albuterol Sulfate 3 Ml Ampul.neb #60 3 ML INH UD use three times daily x 4 days then one time daily thereafter and may use every 2 hours prn for acute shortness of breath Prescribed by: BRITTANY LYN on 08/20/16912 Lactobacillus Acidophilus 1 Each Capsule #21 1 EACH PO TID Prescribed by: BRITTANY LYN on 08/20/16912 Melatonin/Pyridoxine HCl (B6) 1 Each Tab.mphase 10 MG PO HS PRN PRN SLEEP ( Reported) Mirtazapine 15 Mg Tablet 15 MG PO HS (Reported) Morphine Sulfate 15 Mg Tablet.er 15 MG PO TID PRN PRN SEVERE PAIN (Reported) Omeprazole 20 Mg Capsule.dr 20 MG PO BID (Reported) Potassium Chloride 20 Meq Tab.er.prt 20 MEQ PO EVERY AFTERNOON (Reported) Rifaximin 550 Mg Tablet 550 MG PO BID (Reported) Trazodone HCl 50 Mg Tablet 50 MG PO HS (Reported) Constitutional: see HPI EENTM: no symptoms reported Respiratory: short of breath Cardiovascular: no symptoms reported Gastrointestinal: abdominal pain jaundice loss of appetite other (distention) Genitourinary: other (dark urine) Skin: change in color (jaundice) Psychiatric/Neurological: Depressed Hematologic/Lymphatic: No Symptoms Reported Immunological/Allergic: no symptoms reported Past Oejgedb-Agbhmh-Xvzggj Hx Patient Social History Alcohol Use: Denies Use Recreational Drug Use: No Smoking Status: Current Everyday Smoker Type Used: Cigarettes 2nd Hand Smoke Exposure: No Recent Foreign Travel: No Contact w/Someone Who Travel: No Recent Infectious Disease Expo: No Recent Hopitalizations: No Physical Abuse Screen: No Sexual Abuse: No Immunizations Up To Date Tetanus Booster (TDap): Less than 5yrs PED Vaccines UTD: No Date of Pneumonia Vaccine: Jul 10, 2008 Date of Influenza Vaccine: May 10, 2015 Seasonal Allergies Seasonal Allergies: No Surgeries HX Surgeries: Yes (FACIAL AND HEAD RECONSTRUCTION SECONDARY TO TRAUMA PER PT; VENA CAVA FILTER) Surgeries: Vascular Surgery Respiratory Hx Respiratory Disorders: Yes Respiratory Disorders: COPD Cardiovascular Hx Cardiac Disorders: No Neurological Hx Neurological Disorders: Yes (MEMORY LOSS) Reproductive System Hx Reproductive Disorders: No Sexually Transmitted Disease: No HIV/AIDS: No Genitourinary Hx Genitourinary Disorders: No Gastrointestinal Hx Gastrointestinal Disorders: Yes (HEAPTITIS C--CHRONIC LIVER FAILURE) Gastrointestinal Disorders: Gastroesophageal Reflux, Liver Disease/Jaundice, Hepatitis, Cirrhosis Musculoskeletal Hx Musculoskeletal Disorders: Yes (CHRONIC NECK PAIN, LUMBAR COMPRESSION FRACTURE ) Musculoskeletal Disorders: Chronic Back Pain, Fractures Endocrine Hx Endocrine Disorders: Yes (INSULIN + ORAL MEDICATIONS) Endocrine Disorders: Diabetes, Insulin dep HEENT HX ENT Disorders: No Loss of Vision: Denies Hearing Impairment: Denies Cancer Hx Cancer: Yes Cancer: Liver Psychosocial Hx Psychiatric Problems: Yes Behavioral Health Disorders: Anxiety Integumentary HX Skin/Integumentary Disorder: No Blood Transfusions Hx Blood Disorders: No Adverse Reaction to a Blood Tr: No Family Medical History Significant Family History: No Pertinent Family Hx, Hypertension Family Medial History: Coronary thrombosis Myocardial infarction Physical Exam Vital Signs Vital Sign - Last 12Hours 08/28/16 07:30 Temp 97.8 Pulse 79 Resp 18 B/P 145/92 Pulse Ox 94 Capillary Refill : Less Than 3 Seconds General Appearance: Other (jaundiced white male who appears much older than stated) Eyes: Bilateral Eye Scleral Icterus Neck: Normal Inspection Respiratory: Chest Non Tender Lungs Clear Normal Breath Sounds No Accessory Muscle Use No Respiratory Distress Cardiovascular: Regular Rate, Rhythm No Edema No Gallop No JVD No Murmur Normal Peripheral Pulses Gastrointestinal: Other (distended and firm. Bowel sounds are decreased) Back: Normal Inspection No CVA Tenderness No Vertebral Tenderness Extremity: Normal Capillary Refill Normal Inspection Normal Range of Motion Non Tender No Calf Tenderness No Pedal Edema Neurologic/Psychiatric: Alert Oriented x3 No Motor/Sensory Deficits Normal Mood/Affect Skin: Normal Color Warm/Dry Lymphatic: No Adenopathy Progress/Results/Core Measures Results/Orders Lab Results Laboratory Tests Test 08/28/16 07:35 08/28/16 12:10 Range/Units Activated Partial Thromboplast Time 33 24-35 SEC Alanine Aminotransferase (ALT/SGPT) 27 0-55 U/L Albumin 3.1 L 3.2-4.5 G/DL Alkaline Phosphatase 97 40-136 U/L Anion Gap 12 5-14 MMOL/L Anisocytosis SLIGHT Aspartate Amino Transf (AST/SGOT) 37 H 5-34 U/L BUN/Creatinine Ratio 15 Band Neutrophils 1 % Basophils # (Auto) 0.0 0.0-0.1 10^3/uL Basophils (%) (Auto) 0 0-10 % Blood Urea Nitrogen 11 7-18 MG/DL Calcium Level 8.2 L 8.5-10.1 MG/DL Carbon Dioxide Level 25 21-32 MMOL/L Chloride Level 98 98-107 MMOL/L Creatinine 0.75 0.60-1.30 MG/DL Elliptocytes SLIGHT Eosinophils # (Auto) 0.1 0.0-0.3 10^3/uL Eosinophils % (Manual) 3 % Eosinophils (%) (Auto) 1 0-10 % Estimat Glomerular Filtration Rate > 60 Glucose Level 120 H 70-105 MG/DL Hematocrit 38 L 40-54 % Hemoglobin 13.1 L 13.3-17.7 G/DL INR Comment 1.2 0.8-1.4 Lymphocytes # (Auto) 0.4 L 1.0-4.0 X 10^3 Lymphocytes % (Manual) 4 % Lymphocytes (%) (Auto) 6 L 12-44 % Mean Corpuscular Hemoglobin 30 25-34 PG Mean Corpuscular Hemoglobin Concent 35 32-36 G/DL Mean Corpuscular Volume 87 80-99 FL Mean Platelet Volume 12.3 H 7.4-10.4 FL Monocytes # (Auto) 0.9 0.0-1.0 X 10^3 Monocytes % (Manual) 11 % Monocytes (%) (Auto) 13 H 0-12 % Neutrophils # (Auto) 5.4 1.8-7.8 X 10^3 Neutrophils % (Manual) 81 % Neutrophils (%) (Auto) 79 H 42-75 % Platelet Count 99 L 130-400 10^3/uL Poikilocytosis SLIGHT Polychromasia SLIGHT Potassium Level 3.8 3.6-5.0 MMOL/L Prothrombin Time 15.1 H 12.2-14.7 SEC Red Blood Count 4.35 4.35-5.85 10^6/uL Red Cell Distribution Width 14.6 H 10.0-14.5 % Sodium Level 135 135-145 MMOL/L Total Bilirubin 2.4 H 0.1-1.0 MG/DL Total Protein 6.9 6.4-8.2 G/DL White Blood Count 6.8 4.3-11.0 10^3/uL Urine Bacteria NEGATIVE /HPF Urine Bilirubin 1+ H NEGATIVE Urine Casts NONE /LPF Urine Clarity CLEAR Urine Color YELLOW Urine Crystals NONE /LPF Urine Culture Indicated NO Urine Glucose (UA) NEGATIVE NEGATIVE Urine Ketones 1+ H NEGATIVE Urine Leukocyte Esterase NEGATIVE NEGATIVE Urine Mucus SMALL H /LPF Urine Nitrite NEGATIVE NEGATIVE Urine Protein NEGATIVE NEGATIVE Urine RBC RARE /HPF Urine RBC (Auto) NEGATIVE NEGATIVE Urine Specific [place] 1.010 L 1.016-1.022 Urine Squamous Epithelial Cells 2-5 /HPF Urine Urobilinogen 4 H NORMAL MG/DL Urine WBC NONE /HPF Urine pH 6.5 5-9 My Orders Orders-RORY JAIME MD Cbc With Automated Diff (08/28/16 07:25) Comprehensive Metabolic Panel (08/28/16 07:25) Chest 1 View, Ap/Pa Only (08/28/16 07:25) Manual Differential (08/28/16 07:35) Us Doppler Abd Complete [id number] (08/28/16 09:25) Ua Culture If Indicated (08/28/16 12:15) Us Paracentesis Initial [id number] (08/28/16 13:01) Vital Signs/I&O Vital Sign - Last 12Hours 08/28/16 07:30 Temp 97.8 Pulse 79 Resp 18 B/P 145/92 Pulse Ox 94 Blood Pressure Mean: 109 Departure Communication Progress Notes 1115 Dr. Peres reports the ultrasound shows no flow through the TIPS. A study done in June 2016 shows adequate flow and no ascites. 1125 hematology at [facility] was paged and a phone message left for Dr. Aiden Basilio. 1150 callback was obtained from Dr. Basilio's nurse practitioner. She then spoke to him in the clinic after I informed her that Dr. Peres was capable of doing the venous intervention to reopen the stent. The nurse then called back after speaking to Dr. Basilio. He allowed that this would be useful if the patient found it to be more convenient. He related that if there were problems the patient should still be sent back [facility] the [facility]. [address] Peres was notified of this. He planned and made arrangements to perform paracentesis today for symptomatic relief and then to perform venous intervention at a time convenient to both him and the patient. 1340 the patient was carted to radiology for paracentesis. Impression Impression: Primary Impression: ascites Additional Impression: obstruction of TIPS device Disposition: HOME, SELF-CARE Condition: Stable/Unchanged Departure-Patient Inst. Referrals: BRITTANY LYN MD (PCP/Family) Primary Care Physician Add. Discharge Instructions: All discharge instructions reviewed with patient and/or family. Voiced understanding. Return as scheduled for venous intervention Return to ER if decline in condition prior to scheduled intervention RORY JAIME MD Aug 28, 2016 09:17
--- NOTE | 2016-08-28 11:39 | Diagnostic Imaging Report ---
Exam: Duplex ultrasound of the liver. Indication: Shortness of breath. Nausea. Abdominal distention. Findings: There is moderate ascites seen in the abdomen and around the liver. There is hepatopetal flow in the portal vein with the main portal vein flow velocity at 11.6 CM per second. There is no flow detected within the TIPS stent. The left hepatic vein is patent. The middle and right hepatic veins are not visualized. The splenic vein is patent. The IVC is patent. The spleen is enlarged measuring 18.7 cm in length. Impression: 1. No flow is detected in the TIPS stent which could be due to slow flow or occlusion. 2. Moderate splenomegaly. 3. Moderate ascites. The findings were discussed with Dr. Estes by Dr. Peres at the time of dictation. Dictated by: Dictated on workstation # [id number]
[2016-08-28 12:22] LABS: KETONES,URINE 1+ (NEGATIVE); LEUKOCYTE ESTERASE ,URINE NEGATIVE (NEGATIVE); NITRITE,URINE NEGATIVE (NEGATIVE); PH,URINE 6.5 (5-9); PROTEIN,URINE NEGATIVE (NEGATIVE); UROBILINOGEN,URINE 4 MG/DL (NORMAL)
[2016-08-28 12:39] LABS: BILIRUBIN,URINE 1+ (NEGATIVE)
[2016-08-28 13:05] LABS: INR 1.2 (0.8-1.4); PROTHROMBIN TIME PATIENT 15.1 SEC (12.2-14.7)
[2016-08-28] MEDS ORDERED: ALBUMIN 25% 25 GM/100 ML 100 ML IV ONE (13:30)
[2016-08-28] MEDS ORDERED: LIDOCAINE 1% INJ 20 ML (XYLOCAINE) VIAL ONE ×2 (13:59→15:37)
[2016-08-28] MEDS ORDERED: LIDOCAINE 1% INJ 20 ML (XYLOCAINE) VIAL INJ ONE (14:30)
[2016-08-28] MEDS ORDERED: NS IV 1000 ML 1,000 ML ONE (15:37)
[2016-08-28] MEDS ORDERED: HEParin (CATH LAB) 2,000 ML IV ONE (15:37)
--- OUTSIDE RECORDS SUMMARY | 2016-08-28 15:52 | XMS REPORT | Continuity of Care Document ---
Author Author [facility] Organization [facility] Address Unknown Phone Unavailable Care Team Providers Care Race Engine Builder Name Role Phone Osei Lyn PCP [phone] Source Comments Some departments are not documenting in the electronic medical record. If you do not see the information that you expected, contact Release of Information in the Health Information Management department at [phone] for further assistance in locating additional records.[facility] Active Allergies and Adverse Reactions No Known [...] Recent Encounters Date Type Specialty Providers Description 08/28/2016 Telephone Transplant Surgery Aiden Basilio MD Other 08/28/2016 Telephone Hepatology Aiden Basilio MD Follow-up Phone Call 08/28/2016 Telephone Hepatology Aiden Basilio MD Appointment Request - Cancel, pt in ED 08/22/2016 Telephone Hepatology Aiden Basilio MD Patient Reminder Call 07/31/2016 Orders Only Hepatology Sara Calderon End-stage liver disease (HCC); Hepatic fibrosis (HCC); End stage liver disease (HCC) 07/17/2016 Orders Only Hepatology Mely Jaeger APRN End stage liver disease (HCC) (Primary Dx) 07/17/2016 Orders Only Hepatology Mely Jaeger APRN Liver lesion ( Primary Dx); End stage liver disease (HCC) 07/17/2016 Result Letter Hepatology Blank Gordon, RN 07/09/2016 Orders Only Hepatology Sara Calderon [...] Description 11/17/2016 Appointment Radiology Mely Jaeger APRN [address] [facility] [address] [place] [address] [phone] (Fax) Health Maintenance Due Date Last Done [...]
--- OUTSIDE RECORDS SUMMARY | 2016-08-28 15:53 | XMS REPORT | Continuity of Care Document ---
Author Author [facility] Organization [facility] Address Unknown Phone Unavailable Care Team Providers Care Evidence Technician Name Role Phone Osei Lyn PCP [phone] Source Comments Some departments are not documenting in the electronic medical record. If you do not see the information that you expected, contact Release of Information in the Health Information Management department at [phone] for further assistance in locating additional records.[facility] Active Allergies and Adverse Reactions No [...] liver disease (HCC) 07/17/2016 Orders Only Hepatology Mley Jaeger APRN End stage liver disease (HCC) [...] Description 11/17/2016 Appointment Radiology Mely Jaeger APRN [address] [facility] [address] [place] [address] [phone] (Fax) Health Maintenance Due Date Last Done [...]
[2016-08-28] MEDS: NS IV 1000 ML 1,000 ML IV SCH (16:15)
[2016-08-28] MEDS ORDERED: MIDAZOLAM 5 MG/5 ML (VERSED) VIAL ONE (16:17)
[2016-08-28] MEDS ORDERED: fentaNYL INJECTION 100 MCG/2 ML AMP ONE (16:18)
[2016-08-28] MEDS ORDERED: diphenhydrAMINE 50 MG/ML INJ (BENADRYL) ONE (16:18)
--- NOTE | 2016-08-28 18:44 | Conscious Sedation/ASA ---
Conscious Sedation Pre-Proced Time Reviewed: 16:00 ASA Class: 3 Airway Mallampati Classification: ([place] appropriate class) I. II. III, IV Lungs Heart ASA score ASA 1: a normal healthy patient ASA 2: a patient with a mild systemic disease (mid diabetes, controlled hypertension, obesity ASA 3: a patient with a severe systemic disease that limits activity (angina , COPD, prior Myocardial infarction) ASA 4: a patient with an incapacitating disease that is a constant threat to life (CHF, renal failure) ASA 5: a moribund patient not expected to survive 24 hrs. (ruptured aneurysm) ASA 6: a declared brain patient whose organs are being harvested. For emergent operations, add the letter E after the classification Grade 3 Sedation Plan: Analgesia Note The patient is an appropriate candidate to undergo the planned procedure, sedation, and anesthesia. The patient immediately re-assessed prior to indication. WONG CARDENAS MD Aug 28, 2016 18:44
--- NOTE | 2016-08-28 18:47 | Radiology-Procedure Note ---
Procedures/Interventions Procedure/Intervention s/p TIPS revision. It was totally occluded and was dilated to 10mm successfully. full details will be under imaging. WONG CARDENAS MD Aug 28, 2016 18:46
--- NOTE | 2016-08-28 18:50 | Diagnostic Imaging Report ---
EXAMINATION: Ultrasound-guided paracentesis. INDICATION: Ascites. CONSENT: Informed consent was obtained from the patient. The risks, benefits, potential complications and alternatives were reviewed and all questions answered to the patient's satisfaction. The patient's vital signs, cardiac rhythm, and pulse oximetry with observed throughout the procedure by qualified nursing personnel. Sedation/Medications: Albumin 25 gm IV. FINDINGS: ascites. PROCEDURE: After sterile preparation and draping, 1% lidocaine was utilized for local anesthesia. Following sterile preparation and local anesthetic and using 2 D real-time ultrasound for guidance, a 5 Fr [place] sheath catheter was introduced into the peritoneal fluid collection in the right lower quadrant from an anterior approach. Images of needle position documented. Initial fluid return was thin, serous fluid. The sheath was advanced into the deepest fluid pocket and a total of 3 liters of abbie-colored fluid was then evacuated from the peritoneum without difficulty. Fluid was submitted to the laboratory. No immediate complications. IMPRESSION: Successful ultrasound guided paracentesis. Dictated by: Dictated on workstation # [id number]
[2016-08-28 20:30] VITALS: BP 143/90
[2016-08-28] MEDS ORDERED: LACTULOSE SYRUP 10GM/15ML (ENULOSE) 30ML UDC PO ONE (23:45)
[2016-08-28] MEDS: morphine INJ 4 MG/ML 1 ML (VIAL/SYRINGE) IVP PRN (23:58)
[2016-08-29] VITALS: BP 150/69
[2016-08-29] MEDS ORDERED: LACTULOSE SYRUP 10GM/15ML (ENULOSE) 30ML UDC PO ONE
[2016-08-29] MEDS: NS IV 1000 ML 1,000 ML IV SCH (00:08)
[2016-08-29] MEDS: morphine INJ 4 MG/ML 1 ML (VIAL/SYRINGE) IVP PRN (03:58)
[2016-08-29 03:59] VITALS: BP 131/72
[2016-08-29 08:50] VITALS: BP 128/67
[2016-08-29 09:35] VITALS: BP 131/70
--- NOTE | 2016-08-29 13:46 | Diagnostic Imaging Report ---
EXAMINATION: TIPS revision evaluation with venogram, the stent occlusion is crossed and recanalization with angioplasty performed. Venous pressure measurements obtained. Access with ultrasound guidance through the right internal jugular vein is utilized. INDICATION: Hepatitis C with cirrhosis and history of hepatocellular carcinoma. The patient has had recent onset development of ascites with abdominal distention and shortness of breath. Paracentesis was performed prior to this procedure. Duplex ultrasound evaluation in the liver demonstrates no flow within the TIPS suspicious for occlusion. Current history and physical and other medical records are reviewed prior to the procedure. CONSENT: Informed consent was obtained from the patient. The risks, benefits, potential complications and alternatives were reviewed and all questions answered to the patient's satisfaction. The patient's vital signs, cardiac rhythm, and pulse oximetry were observed throughout the procedure by qualified nursing personnel. Sedation: Versed 3 mg total was administered intravenously. 50 mg of Benadryl was administered intravenously. CONTRAST: 100 mL of Isovue 300. Fluoroscopy time: 29.2 minutes PROCEDURE: After maximal sterile barrier technique preparation and draping, 1% lidocaine was utilized for local anesthesia. Ultrasound examination of the right internal jugular vein was performed and compressibility confirming patency is seen. The access is most suitable for the procedure and live ultrasound guidance was utilized to obtain access into the right internal jugular vein with appropriate needle position documented with an ultrasound image. Subsequently, the initial access with micropuncture kit was exchanged for a 5-Bahraini sheath. 5-Bahraini angled glide catheter was utilized and with combination of Bentson and in exchange with an angled Glidewire, access into the TIPS shunt stent was attempted. There was resistance with only the first centimeter of the stent accessed. To obtain better support of the system, the sheath was exchanged for a long 7-Bahraini sheath advanced through the right atrium into the upper IVC and a mp wire 0.018 size was introduced and inserted into the lower aspect of the IVC. Subsequently, a 5-Bahraini multipurpose catheter was introduced and contrast injection to the IVC at this point revealed patent IVC with no contrast reflux into the stent. With the support of the 7-Bahraini sheath and the multipurpose catheter in combination with angled Glidewire, negotiation of the occluded stent was successful with mild resistance and eventually access into the main portal vein and into the splenic vein was achieved. The catheter was passed into the stent and aspiration was attempted to check for possible fresh thrombus component and this failed to aspirate any clot material, suggestive of predominantly chronic occlusion. Subsequently, the catheter was advanced into the splenic vein. A DSA venogram was performed which demonstrated complete occlusion of the TIPS stent. Since the occlusion is chronic, preparation for balloon angioplasty was planned. The wire was exchanged in the catheter for a storke 0.035 wire and advanced into the inferior mesenteric vein. Subsequently, Drawing In Hand 4 x 40 mm balloon was introduced through the stent and angioplasty performed. This was subsequently exchanged for 6 x 40 Drawing In Hand balloon with angioplasty throughout the stent performed, then an 8 x 40 balloon was introduced and angioplasty performed. This included angioplasty for 2 minutes with this balloon. Subsequently, a followup venogram is performed from the splenic vein was performed and demonstrated persistent significant stenosis in the proximal and midportions of the TIPS stent. Therefore, this was followed by introduction of a larger, Drawing In Hand 10 x 40 mm balloon and was inflated throughout the stent with 2 minutes angioplasty time. Subsequent venogram from the portal vein demonstrated good flow at this time with remaining mild stenosis at the portal venous end. Pressures were evaluated at the portal vein and in the right atrium before and after opening the TIPS stent. At the conclusion of the procedure. The sheath was removed from the right internal jugular vein and hemostasis was obtained with manual compression. The patient was combative towards the end of the procedure and this might relate to his hepatic encephalopathy and its interaction with the Versed sedation. Future procedures could be performed with anesthesia. FINDINGS: Right atrial and portal pressures were obtained as follows: Prior to TIPS angioplasty, performed the right atrial pressure (mean pressure) was 8 mmHg which increased after TIPS angioplasty to mean of 13. The portal venous pressure was 44 prior to angioplasty and dropped to 34 afterwards. The gradient was 36 prior to the angioplasty and dropped to 21 after angioplasty. Initially total occlusion of the TIPS stent was seen. Followup angiogram after the final angioplasty demonstrated patent stent with mild residual proximal stenosis, about 20%. Brisk flow was seen. IMPRESSION: 1. The TIPS stent was completely occluded with portosystemic pressure gradient of 36 mmHg. 2. Successful crossing of the occlusion which appears to be predominantly chronic. Angioplasty with up to 10 mm balloon is performed with flow restored and mild remaining proximal stenosis. The portosystemic pressure gradient dropped to 21 after the angioplasty. Dictated by: Dictated on workstation # [id number]
--- OUTSIDE RECORDS SUMMARY | 2016-10-15 16:06 | XMS REPORT | Continuity of Care Document ---
[facility] Address Unknown Phone Unavailable Care Team Providers Care Inside Sales Executive Name Role Phone Osei Lyn PCP [phone] Source Comments Some departments are not documenting in the electronic medical record. If you do not see the information that you expected, contact Release of Information in the Health Information Management department at [phone] for further assistance in locating additional records[facility] Active Allergies and Adverse Reactions No [...] as needed traZODone (DESYREL) 50 mg Take 50 mg by mouth every Active tablet 48 hours. melatonin 10 mg tab Take 1 Tab by mouth at Active bedtime daily. cholecalciferol (VITAMIN Take 2,000 Units by mouth Active D-3) 1,000 units tablet daily. Indications: OTC supplement potassium chloride SR Take 20 mEq by mouth Active (K-DUR) 20 mEq tablet daily. furosemide (LASIX) 40 mg Take 20 mg by mouth Active tablet daily. omeprazole DR(+) Take 20 mg by mouth twice Active (PRILOSEC) 20 mg capsule daily. albuterol (VENTOLIN HFA, Inhale 1 Puff by mouth Active PROAIR HFA) 90 every 6 hours as needed mcg/actuation inhaler for Wheezing. rifAXIMin (XIFAXAN) 550 Take 1 Tab by mouth twice 60 Tab 11 06/24/20 Active mg tablet daily. 16 mirtazapine (REMERON) 15 Take 15 mg by mouth at Active mg tablet bedtime daily. lactulose 10 gram/15 mL Take 30 mL by mouth three 1892 mL 2 05/01/20 09/30/19 Discontin oral solution times daily. Titrate to 16 17 ued 3-4 BMs/day Active Problems Problem Noted Date Non-occlusive thrombus 09/30/2016 Hepatocellular carcinoma (HCC) 09/23/2016 End-stage liver disease (HCC) 05/10/2015 Hepatic encephalopathy [...] Recent Encounters Date Type Specialty Providers Description 10/02/2016 Telephone Hepatology Mely Jaeger APRN Other - ICD code 09/30/2016 Office Visit Hepatology Mely Jaeger APRN HCC ( hepatocellular carcinoma) (HCC) (Primary Dx); End-stage liver disease (HCC); Hepatic encephalopathy (HCC); Esophageal varices without bleeding, unspecified esophageal varices type; S/P TIPS (transjugular intrahepatic portosystemic shunt); Type 2 diabetes mellitus with complication, without long-term current use of insulin (HCC); Encounter for monitoring diuretic therapy; Non-occlusive thrombus 09/25/2016 Telephone Radiology Ely Dunlap RN 09/24/2016 Telephone Hepatology Aiden Basilio MD Follow-up Phone Call 09/24/2016 Telephone Hepatology Mely Jaeger APRN Appointment Request 09/23/2016 Hospital Jeffy Holbrook MD Hepatocellular carcinoma - Encounter Payal Schuster RN (HCC) 09/24/2016 Alisa Ying 09/22/2016 Anesthesia Radiology Andrea Porter, SRNA Event 09/22/2016 Cancer Radiology Ely Dunlap RN Conference 09/22/2016 Orders Only Hepatology Aiden Basilio MD Hepatocellular carcinoma (HCC) (Primary Dx) 09/19/2016 Pre-Admit Jeffy Holbrook MD Orders Only 09/19/2016 Orders Only Radiology Ely Dunlap RN Hepatocellular carcinoma (HCC) (Primary Dx) 09/17/2016 Telephone HepatAiden Murphy MD Results 09/17/2016 Telephone Hepatology Mely Jaeger APRN Results 09/15/2016 Telephone Hepatology Aiden Basilio MD Follow-up Phone Call 09/13/2016 Ancillary Radiology Outpatient, Radiologist Diagnosis unknown Orders (Primary Dx) 09/12/2016 Hospital Radiology Encounter 09/10/2016 Scan Only HepatAiden Murphy MD [...] APRN Other - voice mail 09/02/2016 Telephone Hepatology Mely Jaeger APRN Records Request 09/01/2016 Telephone Aiden Bowser [...] 07/17/2016 Result Letter Hepatology Blank Gordon, AISHA Immunizations Name Dates Previously Given Next Due Tdap Vaccine 01/11/2009 Social History Tobacco Use Types Packs/Day Years Used Date Former Smoker Cigarettes 0.25 45 Quit: 09/10/2016 Smokeless Tobacco: Never Used Tobacco Cessation: Ready to Quit: Yes Comments: trying to quit Alcohol Use Drinks/Week oz/Week Comments No quit '08; moderate alcohol intake prior (up to 8 drinks/week) Last Filed Vital Signs Vital Sign Reading Time Taken Blood Pressure 121/69 09/30/2016 1:03 PM [facility] Pulse 64 09/30/2016 1:03 PM [facility] Temperature 36.6 C (97.8 F) 09/30/2016 1:03 PM [facility] Respiratory Rate 16 09/30/2016 1:03 PM [facility] Height 1.829 m (6') 09/30/2016 1:03 PM [facility] Weight 95.437 kg (210 lb 6.4 oz) 09/30/2016 1:03 PM [facility] Body Mass Index 28.53 09/30/2016 1:03 PM [facility] Oxygen Saturation 100% 09/30/2016 1:03 PM [facility] Plan of Care Date Type Specialty Providers Description 01/06/2017 Appointment Hepatology Mely Jaeger, [employer] [address] [facility] [address] [place] [address] [phone] (Fax) Health Maintenance Due Date Last Done Comments Physical (Comprehensive) 1962 Exam Dilated Eye Exam 1972 Foot Exam 1972 Microalbumin 1972 Pneumonia Vaccine (Dm) 1972 Shingles Vaccine 2014 Hba1c 05/02/2016 10/31/2015, 11/14/2014, 01/16/2014 Additional history exists Influenza Vaccine 04/10/2017 Tetanus Vaccine 01/11/2019 01/11/2009 Colorectal Cancer 09/05/2020 09/05/2010, 07/11/2008, 06/09/2008 Screening Pertussis Vaccine Completed 01/11/2009 Procedures from Last 3 Months Procedure Name Priority Date/Time Associated Diagnosis Comments TELEMETRY STRIPS-SCAN 09/25/2016 Results for this 11:57 AM [facility] procedure are in the results section. CONSULT IV THERAPY TEAM STAT 09/23/2016 7:39 PM [facility] Results from Last 3 Months TELEMETRY STRIPS-SCAN (09/25/2016 11:57 AM) Narrative Ordered by an unspecified provider. POC GLUCOSE (09/24/2016 8:04 AM)Only the most recent of 4 results within the time period is included. Component Value Range Glucose, POC 126 (H) 70-100 MG/DL COMPREHENSIVE METABOLIC PANEL (09/24/2016 3:58 AM) Component Value Range Sodium 132 (L) 137-147 MMOL/L Potassium 4.1 3.5-5.1 MMOL/L Chloride 101 98-110 MMOL/L Glucose 164 (H) 70-100 MG/DL Blood Urea Nitrogen 12 7-25 MG/DL Creatinine 0.61 0.4-1.24 MG/DL Calcium 7.9 (L) 8.5-10.6 MG/DL Total Protein 5.5 (L) 6.0-8.0 G/DL Total Bilirubin 1.1 0.3-1.2 MG/DL Albumin 2.5 (L) 3.5-5.0 G/DL Alk Phosphatase 54 25-110 U/L AST (SGOT) 30 7-40 U/L CO2 27 21-30 MMOL/L ALT (SGPT) 11 7-56 U/L Anion Gap 4 3-12 eGFR Non >60Comment: >60 mL/min The eGFR is not validated for use in drug dosing adjustments. Continue to use estimated creatinine clearance per dosing reference text. Please contact the Clinical Pharmacist for questions. eGFR >60Comment: >60 mL/min The eGFR is not validated for use in drug dosing adjustments. Continue to use estimated creatinine clearance per dosing reference text. Please contact the Clinical Pharmacist for questions. Specimen Blood CT ABDOMEN WO/W CONTRAST (09/23/2016 10:27 PM) Impressions 1. Persistent, partially occlusive thrombus within the upper SMV and main portal vein resulting in moderate narrowing. Additional midline splenic vein partially occlusive thrombus is present, with associated marked narrowing. 2. Unchanged size of treated segment 4A lesion with no enhancement identified. LI-RADS treated lesion with low suspicion of recurrent tumor. 3. Decrease in size of treated segment IVb lesion. LI-RADS treated lesion with low suspicion of recurrent tumor. 4. Cirrhosis with portal hypertension manifested by mild splenomegaly, extensive portosystemic and esophageal varices, small volume ascites, and mesenteric venous congestion. By my electronic signature, I attest that I have personally reviewed the images for this examination and formulated the interpretations and opinions expressed in this report Finalized by Ye Jimenez M.D. on 09/24/2016 12:11 AM. Dictated by Ephraim Rhodes M.D. on 09/23/2016 10:[address] Abdomen Clinical Indication:Male, 61 years old. Liver lesions on previous imaging. Technique:Multiple contiguous axial images were obtained through the abdomen following the uneventful administration of IV contrast material. Noncontrast as well as hepatic arterial, portal venous and delayed imaging was obtained through the abdomen. Post processing coronal and sagittal reconstruction images were made from the axial images. IV contrast: Isovue-370 Bowel contrast:None Comparison: Outside CT abdomen/pelvis September 12, [address] abdomen/pelvis May 26, 2016 FINDINGS: Ye Jimenez M.D. has personally reviewed these images and formulated the interpretations and opinions expressed in this report. Lower Thorax: Lung bases show only trace linear atelectasis. Heart is normal in size without pericardial effusion. Calcified coronary artery disease. Extensive esophageal varices. Liver and Biliary system: Normal size cirrhotic liver. TIPS remains in place. There is moderate intrahepatic biliary ductal dilatation the anterior segment of the right lobe, with left lobe of the liver showing more mild intrahepatic biliary ductal dilatation. There is relative sparing of the posterior right lobe of the liver with regards to intrahepatic biliary ductal dilatation. Partially occlusive thrombus within the upper SMV resulting in at least moderate narrowing (series 7 image 35). The partially occlusive thrombus in the SMV extends cephalad to the level of the main portal vein at the confluence. There is also some partially occlusive thrombus within the midline splenic vein resulting in severe luminal stenosis, with approximately 75% maximal luminal narrowing. Gallbladder is nondistended. No biliary ductal dilatation. Liver lesions: Segment 4A lesion (series 6 image 26): Previously treated lesion has not safely changed in size since prior exam measuring 4.5 cm. This remains stable when compared to more remote exam dated May 26, 2016. No enhancement is identified. Segment 4B lesion (series 6 image 33). Previously treated lesion has no family change since prior exam measuring 2.6 cm, though has decreased in size since more remote exam dated May 26, 2016. Region of low density likely represent some scarring at the inferior lateral aspect of the right lobe of the liver is unchanged over multiple prior exams ( series 7, image 27). No new hepatic lesions are identified. Spleen: Spleen is mildly enlarged. Numerous portosystemic varices. Adrenal Glands and Kidneys: Unremarkable. Pancreas and Retroperitoneum: Unremarkable. Aorta and Major Vessels: Abdominal aorta is normal in caliber with moderate aortobiiliac atherosclerotic plaque. Embolization coils noted in the gastrohepatic region. Bowel, Mesentery and Peritoneal space: Visualized large and small bowel are normal in caliber. Mild to moderate mesenteric venous congestion. Small volume abdominal ascites. Abdominal wall and Osseous Structures: Thoracolumbar spondylosis. Compression deformity of L1 has not significantly changed since prior exam. Procedure Note Interface, Radiant Results - ThuSep 24, 2016 12:[address] Abdomen Clinical Indication: Male, 61 years old. Liver lesions on previous imaging. Technique: Multiple contiguous axial images were obtained through the abdomen following the uneventful administration of IV contrast material. Noncontrast as well as hepatic arterial, portal venous and delayed imaging was obtained through the abdomen. Post processing coronal and sagittal reconstruction images were made from the axial images. IV contrast: Isovue-370 Bowel contrast: None Comparison: Outside CT abdomen/pelvis September 12, [address] abdomen/pelvis May 26, 2016 FINDINGS: Ye Jimenez M.D. has personally reviewed these images and formulated the interpretations and opinions expressed in this report. Lower Thorax: Lung bases show only trace linear atelectasis. Heart is normal in size without pericardial effusion. Calcified coronary artery disease. Extensive esophageal varices. Liver and Biliary system: Normal size cirrhotic liver. TIPS remains in place. There is moderate intrahepatic biliary ductal dilatation the anterior segment of the right lobe, with left lobe of the liver showing more mild intrahepatic biliary ductal dilatation. There is relative sparing of the posterior right lobe of the liver with regards to intrahepatic biliary ductal dilatation. Partially occlusive thrombus within the upper SMV resulting in at least moderate narrowing (series 7 image 35). The partially occlusive thrombus in the SMV extends cephalad to the level of the main portal vein at the confluence. There is also some partially occlusive thrombus within the midline splenic vein resulting in severe luminal stenosis, with approximately 75% maximal luminal narrowing. Gallbladder is nondistended. No biliary ductal dilatation. Liver lesions: Segment 4A lesion (series 6 image 26): Previously treated lesion has not safely changed in size since prior exam measuring 4.5 cm. This remains stable when compared to more remote exam dated May 26, 2016. No enhancement is identified. Segment 4B lesion (series 6 image 33). Previously treated lesion has no family change since prior exam measuring 2.6 cm, though has decreased in size since more remote exam dated May 26, 2016. Region of low density likely represent some scarring at the inferior lateral aspect of the right lobe of the liver is unchanged over multiple prior exams ( series 7, image 27). No new hepatic lesions are identified. Spleen: Spleen is mildly enlarged. Numerous portosystemic varices. Adrenal Glands and Kidneys: Unremarkable. Pancreas and Retroperitoneum: Unremarkable. Aorta and Major Vessels: Abdominal aorta is normal in caliber with moderate aortobiiliac atherosclerotic plaque. Embolization coils noted in the gastrohepatic region. Bowel, Mesentery and Peritoneal space: Visualized large and small bowel are normal in caliber. Mild to moderate mesenteric venous congestion. Small volume abdominal ascites. Abdominal wall and Osseous Structures: Thoracolumbar spondylosis. Compression deformity of L1 has not significantly changed since prior exam. IMPRESSION 1. Persistent, partially occlusive thrombus within the upper SMV and main portal vein resulting in moderate narrowing. Additional midline splenic vein partially occlusive thrombus is present, with associated marked narrowing. 2. Unchanged size of treated segment 4A lesion with no enhancement identified. LI-RADS treated lesion with low suspicion of recurrent tumor. 3. Decrease in size of treated segment IVb lesion. LI-RADS treated lesion with low suspicion of recurrent tumor. 4. Cirrhosis with portal hypertension manifested by mild splenomegaly, extensive portosystemic and esophageal varices, small volume ascites, and mesenteric venous congestion. By my electronic signature, I attest that I have personally reviewed the images for this examination and formulated the interpretations and opinions expressed in this report Finalized by Ye Jimenez M.D. on 09/24/2016 12:11 AM. Dictated by Ephraim Rhodes M.D. on 09/23/2016 10:51 PM. CREATININE (09/23/2016 5:43 PM) Component Value Range Creatinine 0.67 0.4-1.24 MG/DL eGFR Non >60Comment: >60 mL/min The eGFR is not validated for use in drug dosing adjustments. Continue to use estimated creatinine clearance per dosing reference text. Please contact the Clinical Pharmacist for questions. eGFR >60Comment: >60 mL/min The eGFR is not validated for use in drug dosing adjustments. Continue to use estimated creatinine clearance per dosing reference text. Please contact the Clinical Pharmacist for questions. Specimen Blood CBC (09/23/2016 5:43 PM) Component Value Range White Blood Cells 2.4 (L) 4.5-11.0 K/UL RBC 3.95 (L) 4.4-5.5 M/UL Hemoglobin 11.5 (L) 13.5-16.5 GM/DL Hematocrit 33.7 (L) 40-50 % MCV 85.3 80-100 FL MCH 29.1 26-34 PG MCHC 34.1 32.0-36.0 G/DL RDW 16.3 (H) 11-15 % Platelet Count 41 (L) 150-400 K/UL MPV 9.0 7-11 FL Specimen Blood IR ASPIRATION/DRAIN (09/23/2016 2:02 PM) Impressions Successful tips revision with reduction of portosystemic gradient from 20 mmHg to 8 mmHg. Successful ultrasound-guided paracentesis. I, Jeffy Holbrook M.D, the attending radiologist, was present for the critical and salinas portions of the procedure with a midlevel, resident, and/or fellow participating.Overlapping portions were non salinas and I was immediately available.I interpret the critical and salinas portion of this procedure to have been needle access. @TT Approved by Randolph Mcarthur M.D. on 09/23/2016 3:00 PM By my electronic signature, I attest that I have personally reviewed the images for this examination and formulated the interpretations and opinions expressed in this report Finalized by Jeffy Holbrook M.D. on 09/23/2016 3:21 PM. Dictated by Randolph Mcarthur M.D. on 09/23/2016 2:48 PM. Narrative 1. TIPS check and revision. 2. Paracentesis INDICATION: 61-year-old male with end-stage liver disease and an indwelling TIPS shunt initially placed for recurrent ascites. 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 DATE OF PROCEDURE 09/23/2016 OPERATING PHYSICIAN: Jeffy Holbrook MD, Randolph Mcarthur MD MEDICATIONS: General anesthesia CONTRAST : 160 mL Isovue-300 FLUOROSCOPY DOSE:1528 mGyPROCEDURE: The risks and benefits and alternatives of the procedure as well as general anesthesia were discussed with the patient. After obtaining informed consent the patient's right neck and the right abdomen were prepped and draped in the usual sterile fashion. The skin and subcutaneous tissues in the right lower quadrant were locally anesthetized with 2% lidocaine without epinephrine. Ultrasound of the right lower quadrant demonstrate large amount of ascites. The skin and subcutaneous tissue were anesthetized with 2% lidocaine without epinephrine. Using ultrasound guidance, the pocket of ascites was accessed with a thoracentesis/paracentesis device (18 gauge needle in an 8 Fr sheath attached to a three-way valve and syringe). The needle was removed and 3400 cc of ascites were withdrawn. The right internal jugular vein was accessed utilizing a micropuncture technique under direct ultrasound guidance. A 0.035 Amplatz wire was advanced through the transitional dilator and negotiated into the inferior vena cava. A 9 Ben[place] angled sheath was then placed. A 5 [place] RODOLFO 1 catheter was advanced over a Glidewire and used to select the TIPS shunt into the portal vein. The wire was then exchanged for a 0.035 Amplatz wire. The catheter was then exchanged for a marking pigtail catheter. Pressure measurements as well as angiography performed. A 10 mm x 4 cm [place] balloon was then advanced over the wire and used to perform angioplasty of the length of the TIPS. The balloon was then removed over the wire and repeat angiogrammed was performed. Residual adherent clot to the wall of the main portal vein was identified. The sheath was advanced into the distal TIPS. A janitorial cleaner device was used to macerate the clot. Follow-up angiogram demonstrates residual adherent clot. Next, a 10 mm x 6 cm Zilver self- expanding stent was advanced to the distal left the TIPS and used to extend the TIPS into the main portal vein excluding the unresolved thrombus. Follow-up pressures and angiography were performed. The sheath was then removed and hemostasis was achieved utilizing manual compression. The patient tolerated the procedure well and left the angiography suite in stable condition without any immediate postprocedural complications. FINDINGS: 1. Patent right internal jugular vein by ultrasound. 2. Pre angioplasty, the patient has an indwelling TIPS which was occluded. Additionally, adherent clot seen within the main portal vein near the inflow to the TIPS stent. 3. Pre angioplasty and stenting pressures: Portal vein 29 mmHg and right atrium 9mmHg giving a gradient of 20 mmHg. 4. The TIPS stent was dilated with a 10 mm x 4 cm [place] balloon. Next mechanical thrombectomy performed within the main portal vein is device. This is followed by placement of a 10 mm x 6 cm Zilver stent in overlapping fashion at the portal end of the TIPS. 5. Post angioplasty, thrombectomy, and stent placement pressures: Portal vein 20 mmHg and right atrium 12 mmHg giving a gradient of 8 mmHg. 6. Final angiogram demonstrates markedly improvement in flow through the TIPS stent with filling of the main right and left portal veins but no significant filling of more distal branches. 7. Moderate volume ascites removal of 3.4 L. Procedure Note Interface, Radiant Results - [facility] Sep 23, 2016 3:24 PM [facility] 1. TIPS check and revision. 2. Paracentesis INDICATION: 61-year-old male with end-stage liver disease and an indwelling TIPS shunt initially placed for recurrent ascites. 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 DATE OF PROCEDURE 09/23/2016 OPERATING PHYSICIAN: Jeffy Holbrook MD, Randolph Mcarthur MD MEDICATIONS: General anesthesia CONTRAST : 160 mL Isovue-300 FLUOROSCOPY DOSE: 1528 mGyPROCEDURE: The risks and benefits and alternatives of the procedure as well as general anesthesia were discussed with the patient. After obtaining informed consent the patient's right neck and the right abdomen were prepped and draped in the usual sterile fashion. The skin and subcutaneous tissues in the right lower quadrant were locally anesthetized with 2% lidocaine without epinephrine. Ultrasound of the right lower quadrant demonstrate large amount of ascites. The skin and subcutaneous tissue were anesthetized with 2% lidocaine without epinephrine. Using ultrasound guidance, the pocket of ascites was accessed with a thoracentesis/paracentesis device (18 gauge needle in an 8 Fr sheath attached to a three-way valve and syringe). The needle was removed and 3400 cc of ascites were withdrawn. The right internal jugular vein was accessed utilizing a micropuncture technique under direct ultrasound guidance. A 0.035 Amplatz wire was advanced through the transitional dilator and negotiated into the inferior vena cava. A 9 Beninese angled sheath was then placed. A 5 [place] RODOLFO 1 catheter was advanced over a Glidewire and used to select the TIPS shunt into the portal vein. The wire was then exchanged for a 0.035 Amplatz wire. The catheter was then exchanged for a marking pigtail catheter. Pressure measurements as well as angiography performed. A 10 mm x 4 cm [place] balloon was then advanced over the wire and used to perform angioplasty of the length of the TIPS. The balloon was then removed over the wire and repeat angiogrammed was performed. Residual adherent clot to the wall of the main portal vein was identified. The sheath was advanced into the distal TIPS. A janitorial cleaner device was used to macerate the clot. Follow-up angiogram demonstrates residual adherent clot. Next, a 10 mm x 6 cm Zilver self- expanding stent was advanced to the distal left the TIPS and used to extend the TIPS into the main portal vein excluding the unresolved thrombus. Follow-up pressures and angiography were performed. The sheath was then removed and hemostasis was achieved utilizing manual compression. The patient tolerated the procedure well and left the angiography suite in stable condition without any immediate postprocedural complications. FINDINGS: 1. Patent right internal jugular vein by ultrasound. 2. Pre angioplasty, the patient has an indwelling TIPS which was occluded. Additionally, adherent clot seen within the main portal vein near the inflow to the TIPS stent. 3. Pre angioplasty and stenting pressures: Portal vein 29 mmHg and right atrium 9mmHg giving a gradient of 20 mmHg. 4. The TIPS stent was dilated with a 10 mm x 4 cm [place] balloon. Next mechanical thrombectomy performed within the main portal vein is device. This is followed by placement of a 10 mm x 6 cm Zilver stent in overlapping fashion at the portal end of the TIPS. 5. Post angioplasty, thrombectomy, and stent placement pressures: Portal vein 20 mmHg and right atrium 12 mmHg giving a gradient of 8 mmHg. 6. Final angiogram demonstrates markedly improvement in flow through the TIPS stent with filling of the main right and left portal veins but no significant filling of more distal branches. 7. Moderate volume ascites removal of 3.4 L. IMPRESSION Successful tips revision with reduction of portosystemic gradient from 20 mmHg to 8 mmHg. Successful ultrasound-guided paracentesis. I, Jeffy Holbrook M.D, the attending radiologist, was present for the critical and salinas portions of the procedure with a midlevel, resident, and/or fellow participating. Overlapping portions were non salinas and I was immediately available. I interpret the critical and salinas portion of this procedure to have been needle access. @TT Approved by Randolph Mcarthur M.D. on 09/23/2016 3:00 PM By my electronic signature, I attest that I have personally reviewed the images for this examination and formulated the interpretations and opinions expressed in this report Finalized by Jeffy Holbrook M.D. on 09/23/2016 3:21 PM. Dictated by Randolph Mcarthur M.D. on 09/23/2016 2:48 PM. IR VENOUS DIAGNOSTIC/INTERVENTION (09/23/2016 2:02 PM) Impressions Successful tips revision with reduction of portosystemic gradient from 20 mmHg to 8 mmHg. Successful ultrasound-guided paracentesis. I, Jeffy Holbrook M.D, the attending radiologist, was present for the critical and salinas portions of the procedure with a midlevel, resident, and/or fellow participating.Overlapping portions were non salinas and I was immediately available.I interpret the critical and salinas portion of this procedure to have been needle access. @TT Approved by Randolph Mcarthur M.D. on 09/23/2016 3:00 PM By my electronic signature, I attest that I have personally reviewed the images for this examination and formulated the interpretations and opinions expressed in this report Finalized by Jeffy Holbrook M.D. on 09/23/2016 3:21 PM. Dictated by Randolph Mcarthur M.D. on 09/23/2016 2:48 PM. Narrative 1. TIPS check and revision. 2. Paracentesis INDICATION: 61-year-old male with end-stage liver disease and an indwelling TIPS shunt initially placed for recurrent ascites. 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 DATE OF PROCEDURE 09/23/2016 OPERATING PHYSICIAN: Jeffy Holbrook MD, Randolph Mcarthur MD MEDICATIONS: General anesthesia CONTRAST : 160 mL Isovue-300 FLUOROSCOPY DOSE:1528 mGyPROCEDURE: The risks and benefits and alternatives of the procedure as well as general anesthesia were discussed with the patient. After obtaining informed consent the patient's right neck and the right abdomen were prepped and draped in the usual sterile fashion. The skin and subcutaneous tissues in the right lower quadrant were locally anesthetized with 2% lidocaine without epinephrine. Ultrasound of the right lower quadrant demonstrate large amount of ascites. The skin and subcutaneous tissue were anesthetized with 2% lidocaine without epinephrine. Using ultrasound guidance, the pocket of ascites was accessed with a thoracentesis/paracentesis device (18 gauge needle in an 8 Fr sheath attached to a three-way valve and syringe). The needle was removed and 3400 cc of ascites were withdrawn. The right internal jugular vein was accessed utilizing a micropuncture technique under direct ultrasound guidance. A 0.035 Amplatz wire was advanced through the transitional dilator and negotiated into the inferior vena cava. A 9 Beninese angled sheath was then placed. A 5 Beninese RODOLFO 1 catheter was advanced over a Glidewire and used to select the TIPS shunt into the portal vein. The wire was then exchanged for a 0.035 Amplatz wire. The catheter was then exchanged for a marking pigtail catheter. Pressure measurements as well as angiography performed. A 10 mm x 4 cm [place] balloon was then advanced over the wire and used to perform angioplasty of the length of the TIPS. The balloon was then removed over the wire and repeat angiogrammed was performed. Residual adherent clot to the wall of the main portal vein was identified. The sheath was advanced into the distal TIPS. A janitorial cleaner device was used to macerate the clot. Follow-up angiogram demonstrates residual adherent clot. Next, a 10 mm x 6 cm Zilver self- expanding stent was advanced to the distal left the TIPS and used to extend the TIPS into the main portal vein excluding the unresolved thrombus. Follow-up pressures and angiography were performed. The sheath was then removed and hemostasis was achieved utilizing manual compression. The patient tolerated the procedure well and left the angiography suite in stable condition without any immediate postprocedural complications. FINDINGS: 1. Patent right internal jugular vein by ultrasound. 2. Pre angioplasty, the patient has an indwelling TIPS which was occluded. Additionally, adherent clot seen within the main portal vein near the inflow to the TIPS stent. 3. Pre angioplasty and stenting pressures: Portal vein 29 mmHg and right atrium 9mmHg giving a gradient of 20 mmHg. 4. The TIPS stent was dilated with a 10 mm x 4 cm [place] balloon. Next mechanical thrombectomy performed within the main portal vein is device. This is followed by placement of a 10 mm x 6 cm Zilver stent in overlapping fashion at the portal end of the TIPS. 5. Post angioplasty, thrombectomy, and stent placement pressures: Portal vein 20 mmHg and right atrium 12 mmHg giving a gradient of 8 mmHg. 6. Final angiogram demonstrates markedly improvement in flow through the TIPS stent with filling of the main right and left portal veins but no significant filling of more distal branches. 7. Moderate volume ascites removal of 3.4 L. Procedure Note Interface, Radiant Results - [facility] Sep 23, 2016 3:24 PM SAP BASIS 1. TIPS check and revision. 2. Paracentesis INDICATION: 61-year-old male with end-stage liver disease and an indwelling TIPS shunt initially placed for recurrent ascites. 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 DATE OF PROCEDURE 09/23/2016 OPERATING PHYSICIAN: Jeffy Holbrook MD, Randolph Mcarthur MD MEDICATIONS: General anesthesia CONTRAST : 160 mL Isovue-300 FLUOROSCOPY DOSE: 1528 mGyPROCEDURE: The risks and benefits and alternatives of the procedure as well as general anesthesia were discussed with the patient. After obtaining informed consent the patient's right neck and the right abdomen were prepped and draped in the usual sterile fashion. The skin and subcutaneous tissues in the right lower quadrant were locally anesthetized with 2% lidocaine without epinephrine. Ultrasound of the right lower quadrant demonstrate large amount of ascites. The skin and subcutaneous tissue were anesthetized with 2% lidocaine without epinephrine. Using ultrasound guidance, the pocket of ascites was accessed with a thoracentesis/paracentesis device (18 gauge needle in an 8 Fr sheath attached to a three-way valve and syringe). The needle was removed and 3400 cc of ascites were withdrawn. The right internal jugular vein was accessed utilizing a micropuncture technique under direct ultrasound guidance. A 0.035 Amplatz wire was advanced through the transitional dilator and negotiated into the inferior vena cava. A 9 Beninese angled sheath was then placed. A 5 Beninese RODOLFO 1 catheter was advanced over a Glidewire and used to select the TIPS shunt into the portal vein. The wire was then exchanged for a 0.035 Amplatz wire. The catheter was then exchanged for a marking pigtail catheter. Pressure measurements as well as angiography performed. A 10 mm x 4 cm [place] balloon was then advanced over the wire and used to perform angioplasty of the length of the TIPS. The balloon was then removed over the wire and repeat angiogrammed was performed. Residual adherent clot to the wall of the main portal vein was identified. The sheath was advanced into the distal TIPS. A janitorial cleaner device was used to macerate the clot. Follow-up angiogram demonstrates residual adherent clot. Next, a 10 mm x 6 cm Zilver self- expanding stent was advanced to the distal left the TIPS and used to extend the TIPS into the main portal vein excluding the unresolved thrombus. Follow-up pressures and angiography were performed. The sheath was then removed and hemostasis was achieved utilizing manual compression. The patient tolerated the procedure well and left the angiography suite in stable condition without any immediate postprocedural complications. FINDINGS: 1. Patent right internal jugular vein by ultrasound. 2. Pre angioplasty, the patient has an indwelling TIPS which was occluded. Additionally, adherent clot seen within the main portal vein near the inflow to the TIPS stent. 3. Pre angioplasty and stenting pressures: Portal vein 29 mmHg and right atrium 9mmHg giving a gradient of 20 mmHg. 4. The TIPS stent was dilated with a 10 mm x 4 cm [place] balloon. Next mechanical thrombectomy performed within the main portal vein is device. This is followed by placement of a 10 mm x 6 cm Zilver stent in overlapping fashion at the portal end of the TIPS. 5. Post angioplasty, thrombectomy, and stent placement pressures: Portal vein 20 mmHg and right atrium 12 mmHg giving a gradient of 8 mmHg. 6. Final angiogram demonstrates markedly improvement in flow through the TIPS stent with filling of the main right and left portal veins but no significant filling of more distal branches. 7. Moderate volume ascites removal of 3.4 L. IMPRESSION Successful tips revision with reduction of portosystemic gradient from 20 mmHg to 8 mmHg. Successful ultrasound-guided paracentesis. I, Jeffy Holbrook M.D, the attending radiologist, was present for the critical and salinas portions of the procedure with a midlevel, resident, and/or fellow participating. Overlapping portions were non salinas and I was immediately available. I interpret the critical and salinas portion of this procedure to have been needle access. @TT Approved by Randolph Mcarthur M.D. on 09/23/2016 3:00 PM By my electronic signature, I attest that I have personally reviewed the images for this examination and formulated the interpretations and opinions expressed in this report Finalized by Jeffy Holbrook M.D. on 09/23/2016 3:21 PM. Dictated by Randolph Mcarthur M.D. on 09/23/2016 2:[address] ABD/PEL EXTERNAL IMAGING (09/12/2016 10:00 AM) Narrative This order has been auto finalized and does not contain a result. BASIC METABOLIC PANEL (07/31/2016 9:15 AM) Component Value Range Sodium 137 132-145 mEq/L [...]
--- OUTSIDE RECORDS SUMMARY | 2016-10-15 16:07 | XMS REPORT | Continuity of Care Document ---
Author Author [facility] Organization [facility] Address Unknown Phone Unavailable Care Team Providers Care Secondary Spanish Teacher Name Role Phone Osei Lyn PCP [phone] Source Comments Some departments are not documenting in the electronic medical record. If you do not see the information that you expected, contact Release of Information in the Health Information Management department at [phone] for further assistance in locating additional records.[facility] Active Allergies and Adverse Reactions No [...] Documentation Hepatology Aiden Basilio MD 09/09/2016 Telephone HepatAidne Murphy MD Follow-up Phone Call 09/09/2016 Orders [...] Taken Blood Pressure 121/69 09/30/2016 1:03 PM DIRECTOR [employer] SCIENCES Pulse 64 09/30/2016 1:03 PM [employer]OR [employer] Temperature 36.6 C (97.8 F) 09/30/2016 1:03 PM [employer] Respiratory Rate 16 09/30/2016 1:03 PM [employer] Height 1.829 m (6') 09/30/2016 1:03 PM [employer] Weight 95.437 kg (210 lb 6.4 oz) 09/30/2016 1:03 PM [employer] Body Mass Index 28.53 09/30/2016 1:03 PM [employer] Oxygen Saturation 100% 09/30/2016 1:03 PM [employer] Plan of Care Date Type Specialty Providers Description 01/06/2017 Appointment Hepatology Mely Jaeger, PRODUCTION ZONE LEADER [address] [facility] [address] [place] [address] [phone] (Fax) Health Maintenance Due Date Last Done [...] STRIPS-SCAN 09/25/2016 Results for this 11:57 AM DIRECTOR [employer]ES procedure are in the results section. CONSULT IV THERAPY TEAM STAT 09/23/2016 7:39 PM DIRECTOR [employer] Results from Last 3 Months TELEMETRY STRIPS-SCAN [...] Results - ThuSep 24, 2016 12:[address] [address] Abdomen Clinical Indication: Male, 61 years [...] into the inferior vena cava. A 9 Serbian angled sheath was then placed. A 5 Serbian RODOLFO 1 catheter was advanced over a Glidewire and used to select the TIPS shunt into the portal vein. The wire was then exchanged for a 0.035 Amplatz wire. The catheter was then exchanged for a marking pigtail catheter. Pressure measurements as well as angiography performed. A 10 mm x 4 cm [place] balloon was then advanced over the wire and used to perform angioplasty of the length of the TIPS. The balloon was then removed over the wire and repeat angiogrammed was performed. Residual adherent clot to the wall of the main portal vein was identified. The sheath was advanced into the distal TIPS. A ditch cleaner device was used to macerate the [...] with a 10 mm x 4 cm [place] balloon. Next mechanical thrombectomy performed within the [...] L. Procedure Note Interface, Radiant Results - [facility] Sep 23, 2016 3:24 PM DIRECTOR [employer]ES 1. TIPS check and revision. 2. Paracentesis [...] into the inferior vena cava. A 9 Serbian angled sheath was then placed. A 5 Serbian RODOLFO 1 catheter was advanced over a Glidewire and used to select the TIPS shunt into the portal vein. The wire was then exchanged for a 0.035 Amplatz wire. The catheter was then exchanged for a marking pigtail catheter. Pressure measurements as well as angiography performed. A 10 mm x 4 cm [place] balloon was then advanced over the wire and used to perform angioplasty of the length of the TIPS. The balloon was then removed over the wire and repeat angiogrammed was performed. Residual adherent clot to the wall of the main portal vein was identified. The sheath was advanced into the distal TIPS. A ditch cleaner device was used to macerate the [...] with a 10 mm x 4 cm [place] balloon. Next mechanical thrombectomy performed within the [...] into the inferior vena cava. A 9 Serbian angled sheath was then placed. A 5 Serbian RODOLFO 1 catheter was advanced over a Glidewire and used to select the TIPS shunt into the portal vein. The wire was then exchanged for a 0.035 Amplatz wire. The catheter was then exchanged for a marking pigtail catheter. Pressure measurements as well as angiography performed. A 10 mm x 4 cm [place] balloon was then advanced over the wire and used to perform angioplasty of the length of the TIPS. The balloon was then removed over the wire and repeat angiogrammed was performed. Residual adherent clot to the wall of the main portal vein was identified. The sheath was advanced into the distal TIPS. A ditch cleaner device was used to macerate the [...] with a 10 mm x 4 cm [place] balloon. Next mechanical thrombectomy performed within the [...] L. Procedure Note Interface, Radiant Results - [facility] Sep 23, 2016 3:24 PM DIRECTOR [employer] 1. TIPS check and revision. 2. Paracentesis [...] into the inferior vena cava. A 9 Serbian angled sheath was then placed. A 5 Serbian RODOLFO 1 catheter was advanced over a Glidewire and used to select the TIPS shunt into the portal vein. The wire was then exchanged for a 0.035 Amplatz wire. The catheter was then exchanged for a marking pigtail catheter. Pressure measurements as well as angiography performed. A 10 mm x 4 cm [place] balloon was then advanced over the wire and used to perform angioplasty of the length of the TIPS. The balloon was then removed over the wire and repeat angiogrammed was performed. Residual adherent clot to the wall of the main portal vein was identified. The sheath was advanced into the distal TIPS. A ditch cleaner device was used to macerate the [...] with a 10 mm x 4 cm [place] balloon. Next mechanical thrombectomy performed within the [...]
== END 2016-08-29 09:35 | disposition home or self-care (01) ==
LOC: EDUNIT# 07:19 → ER 07:22 → SDC 13:43 → ER 13:43 → SDC 19:10 → ICU 19:10 → SDC 08-29 09:35 → ICU 08-29 09:35
PROVIDERS: ATTEND Family Medicine
DX: C22.0 Liver cell carcinoma (principal); B19.20 Unspecified viral hepatitis C without hepatic coma; K74.60 Unspecified cirrhosis of liver; Z72.0 Tobacco use; E11.9 Type 2 diabetes mellitus without complications; J44.9 Chronic obstructive pulmonary disease, unspecified; Z79.899 Other long term (current) drug therapy
CPT/HCPCS: 36415; 37183; 49083; 71010; 76937; 80053; 81000; 82140; 85007; 85027; 85610; 85730; 89051; 93975

== ENCOUNTER → 2016-09-08 | Outpatient (CLI) | payer MEDICARE, MEDICAID ==
[~2016-09-08] VITALS: Ht 182.9 cm; Wt 100.7 kg
[~2016-09-08] MED LIST changes: +LIDOCAINE 1% INJ 20 ML (XYLOCAINE) VIAL ONE; +NITR-65 PO
--- OUTSIDE RECORDS SUMMARY | 2016-09-08 14:39 | XMS REPORT | Continuity of Care Document ---
Author Author [facility] Organization [facility] Address Unknown Phone Unavailable Care Team Providers Care Consulting Services Project Manager Name Role Phone Osei Lyn PCP [phone] Source Comments Some departments are not documenting in the electronic medical record. If you do not see the information that you expected, contact Release of Information in the Health Information Management department at [phone] for further assistance in locating additional records.[facility] Active Allergies and Adverse Reactions No [...] Recent Encounters Date Type Specialty Providers Description 09/02/2016 Telephone Hepatology Mely Jaeger APRN Records Request 09/01/2016 Telephone Hepatology Aiden Basilio MD Appointment Request 08/28/2016 Telephone Transplant Surgery Aiden Basilio MD Other 08/28/2016 Telephone HepatAiden Murphy MD Follow-up Phone Call 08/28/2016 Telephone Hepatology Aiden Basilio MD Appointment Request - Cancel, pt in ED 08/22/2016 Telephone HepatAiden Murphy MD Patient Reminder Call 07/31/2016 Orders Only Hepatology Sara Calderon End-stage liver disease (HCC); Hepatic fibrosis (HCC); End stage liver disease (HCC) 07/17/2016 Orders Only Hepatology Mely Jaeger APRN End stage liver disease (HCC) (Primary Dx) 07/17/2016 Orders Only Hepatology Mely Jaeger APRN Liver lesion ( Primary Dx); End stage liver disease (HCC) 07/17/2016 Result Letter Hepatology Blank Gordon, AISHA 07/09/2016 Orders Only Hepatology Sara Calderon [...] APRN Medication Refill 06/23/2016 Orders Only Hepatology Kvng Sara End-stage liver disease (HCC); Hepatic fibrosis (HCC) [...] of Care Date Type Specialty Providers Description 09/30/2016 Appointment Hepatology Mely Jaeger APRN [address] [place] [address] [phone] (Fax) 11/17/2016 Appointment Radiology Mely Jaeger APRN [address] [place] [address] [phone] (Fax) Health Maintenance Due Date Last Done [...]
[2016-09-08 15:04] LABS: MEAN PLATELET VOLUME 11.5 FL (7.4-10.4); RED BLOOD COUNT 4.16 10^6/uL (4.35-5.85); RED CELL DISTRIBUTION WIDTH 14.7 % (10.0-14.5); WHITE BLOOD COUNT 3.8 10^3/uL (4.3-11.0)
[2016-09-08 15:15] VITALS: BP 152/93
[2016-09-08 17:37] VITALS: BP 116/62
--- NOTE | 2016-09-08 17:41 | Diagnostic Imaging Report ---
EXAMINATION: Ultrasound-guided paracentesis. INDICATION: Ascites. CONSENT: Informed consent was obtained from the patient. The risks, benefits, potential complications and alternatives were reviewed and all questions answered to the patient's satisfaction. The patient's vital signs, cardiac rhythm, and pulse oximetry with observed throughout the procedure by qualified nursing personnel. FINDINGS: ascites. PROCEDURE: After sterile preparation and draping, 1% lidocaine was utilized for local anesthesia. Following sterile preparation and local anesthetic and using 2 D real-time ultrasound for guidance, a 5 Yeuh Fr sheath on a trocar needle was introduced into the peritoneal fluid collection in the right lower quadrant from an anterior approach. Images of needle position documented. Initial fluid return was thin, serous fluid. The sheath was advanced into the deepest fluid pocket and a total of 5.4 liters of abbie-colored fluid was then evacuated from the peritoneum without difficulty. Fluid was submitted to the laboratory. No immediate complications. IMPRESSION: Successful ultrasound guided paracentesis. Dictated by: Dictated on workstation # [id number]
--- NOTE | 2016-09-09 08:45 | Diagnostic Imaging Report ---
Exam: Vascular duplex ultrasound of the liver. Indication: History of liver failure with history of TIPS occlusion status post balloon angioplasty. The patient presents with recurrence of ascites and suspected re-occlusion of the TIPS shunt. Findings: There is no color flow seen within the tips shunt compatible with recurrence of the occlusion. There is also partial thrombosis seen in the main portal vein. This is probably secondary to slow flow from the TIPS occlusion. There is partial flow noted in the portal vein in a hepatopetal direction. The occluded TIPS stent is 8 mm in caliber. Portions of the right hepatic and middle hepatic veins appear to be patent. The IVC appears patent. The splenic vein is patent. There is moderate ascites seen around the liver. Impression: There is recurrence of the TIPS stent occlusion. There is nonocclusive thrombus formation in the main portal vein seen probably secondary to decreased portal venous flow secondary to the TIPS occlusion. Report given to Dr. Ayesha Lyn at 5:39 p.m. 09/08/2016. Report faxed to Dr. Aiden Basilio at [phone] 5:42 p.m. 09/08/2016/michele Dictated by: Dictated on workstation # [id number]
== END ==
LOC: RAD 14:35
PROVIDERS: ATTEND Family Medicine
DX: K72.90 Hepatic failure, unspecified without coma (principal); R18.8 Other ascites; T82.858A Stenosis of other vascular prosthetic devices, implants and grafts, initial encounter
CPT/HCPCS: 36415; 49083; 85027; 93975

== ENCOUNTER → 2016-09-12 | Outpatient (CLI) | payer MEDICARE, MEDICAID ==
[~2016-09-12] MED LIST changes: +CATHETER FLUSH 10 ML SYR IV PRN; +IOHEXOL 350 MG/ML 100 ML (OMNIPAQUE 350) VIAL IV ONE; -LIDOCAINE 1% INJ 20 ML (XYLOCAINE) VIAL ONE; +NS 100 ML (IVPB) BAG IV ONE
--- OUTSIDE RECORDS SUMMARY | 2016-09-12 09:37 | XMS REPORT | Continuity of Care Document ---
Author Author [facility] Organization [facility] Address Unknown Phone Unavailable Care Team Providers Care Loss Control Representative Name Role Phone Osei Lyn PCP [phone] Source Comments Some departments are not documenting in the electronic medical record. If you do not see the information that you expected, contact Release of Information in the Health Information Management department at [phone] for further assistance in locating additional records.[facility] Active Allergies and Adverse Reactions No Known [...] Recent Encounters Date Type Specialty Providers Description 09/10/2016 Scan Only Hepatology Aiden Basilio MD 09/10/2016 Documentation Hepatology Aiden Basilio MD 09/09/2016 Telephone HepatAiden Mruphy MD Follow-up Phone Call 09/09/2016 Orders Only Hepatology Neva Ann, AISHA S/P TIPS ( transjugular intrahepatic portosystemic shunt); Other cirrhosis of liver (HCC) 09/09/2016 Orders Only HepatAiden Murphy MD S/P TIPS ( transjugular intrahepatic portosystemic shunt) (Primary Dx); Other cirrhosis of liver (HCC) 09/09/2016 Telephone HepatMely Martinez APRN Other - voice mail 09/02/2016 Telephone HepatMely Martinez APRN Records Request 09/01/2016 Telephone Aiden Bowser MD Appointment Request 08/28/2016 Telephone Transplant Surgery Aiden Basilio MD Other 08/28/2016 Telephone Aiden Bowser MD Follow-up Phone Call 08/28/2016 Telephone Aiden Bowser MD Appointment Request - Cancel, pt in ED 08/22/2016 Telephone Aiden Bowser MD Patient Reminder Call 07/31/2016 Orders Only [...] of Care Date Type Specialty Providers Description 09/23/2016 Hospital Radiology Aiden Basilio MD Encounter [id number] [place] [address] [phone] (Fax) 09/30/2016 Appointment Hepatology Mely Jaeger, BOND TRADER [address] [place] [address] [phone] (Fax) 09/30/2016 Appointment Radiology Aiden Basilio MD [id number] [place] [address] [phone] (Fax) 11/17/2016 Appointment Radiology Mely Jaeger, BOND TRADER [address] [place] [address] [phone] (Fax) Health Maintenance Due Date Last Done [...]
--- NOTE | 2016-09-12 12:03 | Diagnostic Imaging Report ---
PROCEDURE: CT abdomen and pelvis with and without contrast. TECHNIQUE: Precontrast acquisitions were acquired through the abdomen and pelvis. Multiple contiguous axial images were obtained through the abdomen and pelvis after the administration of intravenous contrast. INDICATION: Cirrhosis. Hepatocellular carcinoma. The patient has recurrent TIPS occlusion with accumulation of ascites. TECHNIQUE: 300 mL of Omnipaque 350 was administered intravenously. COMPARISON: The study is compared to 07/26/2015 exam. FINDINGS: The lung bases are clear. There is an indeterminate hypervascular lesion measuring 1.1 cm posteriorly in the right hepatic lobe with no associated delayed phase washout. This could be a vascular shunt or an early focus of HCC. There is a previously treated mass in the left hepatic lobe anteriorly measuring 3.9 x 2.8 cm and measuring craniocaudally at 2.5 cm. This is compared to a previous the exam with measurements of 3 x 2.7 x 1.7 cm. There is intrinsic hyperdensity within the mass with no significant hyperenhancement. Increasing size is concerning for tumor recurrence, however. There is a new hypodense mass measuring 3.6 x 3 cm in the central aspect of the liver near the dalia hepatis and abutting the proximal anterior aspect of the TIPS stent. This is area is associated with the smaller nonspecific hyperenhancement seen on the previous study. It is the concerning for a new focus of hepatocellular carcinoma with mass effect and question of extension into the left main portal vein branch. The TIPS stent is occluded. There is a portal vein thrombosis with a small amount of contrast seen around the thrombus opacifying portions of the left portal vein. The other portal vein branches demonstrate diminished caliber and no significant contrast filling. The diminished caliber is in favor of a longstanding process. When compared to 07/26/2015, the TIPS stent appeared open; however, the intrahepatic portal vein branches were also diminished then. This has progressed however at this time. The splenic vein and the superior mesenteric veins are both patent. Again noted is a cirrhotic contour of the liver and moderate splenomegaly, slightly larger compared to the prior exam, measuring in maximum AP dimension 17.5 cm. There are prominent periesophageal varices significantly increased from the prior exam. There are coils in varices seen along the left gastric vein distribution. There are moderate to large amounts of ascites. The pancreas and the adrenal glands appear grossly unremarkable. There is symmetric enhancement in the kidneys. There is no hydronephrosis. The abdominal aorta is normal in caliber. The urinary bladder appears unremarkable. Osseous structures demonstrate no destructive mass. IMPRESSION: 1. There is a new hypoechoic dense 3.6 cm central hepatic mass near the dalia hepatis abutting the left portal vein. There is also enlargement of the previously treated mass anteriorly and superiorly in the left hepatic lobe, and a new hypervascular lesion measuring 1.1 cm in the posterior aspect of the right hepatic lobe concerning for HCC recurrence. 2. There is recurrent occlusion of the tips shunt with nearly occlusive main portal vein thrombus, except for a small flow around the portal vein into some left and right intrahepatic portal venous branches. Other portable venous branches are diminished in caliber. 3. Splenomegaly, moderate to large ascites and prominent periesophageal varices seen. The findings were discussed with Dr. Lyn by Dr. Peres at the time of dictation. Please also fax results to Dr. Aiden Basilio at [phone]. Dictated by: Dictated on workstation # [id number]
== END ==
LOC: RAD 09:34
PROVIDERS: ATTEND Family Medicine
DX: K74.60 Unspecified cirrhosis of liver (principal); C22.0 Liver cell carcinoma
CPT/HCPCS: 74178

== ENCOUNTER 2016-09-16 13:53 | Emergency (ER) | payer MEDICARE, MEDICAID ==
[~2016-09-16] VITALS: Ht 182.9 cm; Wt 105.2 kg
[~2016-09-16 13:53] MED LIST changes: -CATHETER FLUSH 10 ML SYR IV PRN; -IOHEXOL 350 MG/ML 100 ML (OMNIPAQUE 350) VIAL IV ONE; -NITR-65 PO; -NS 100 ML (IVPB) BAG IV ONE
--- OUTSIDE RECORDS SUMMARY | 2016-09-16 14:01 | XMS REPORT | Continuity of Care Document ---
Author Author [facility] Organization [facility] Address Unknown Phone Unavailable Care Team Providers Care Supervisor Electronics Testing Name Role Phone Osei Lyn PCP [phone] Source Comments Some departments are not documenting in the electronic medical record. If you do not see the information that you expected, contact Release of Information in the Health Information Management department at [phone] for further assistance in locating additional records.[facility] Active Allergies and Adverse Reactions [...] Recent Encounters Date Type Specialty Providers Description 09/15/2016 Telephone Hepatology Aiden Basilio MD Follow-up Phone Call 09/13/2016 Ancillary Radiology Outpatient, Radiologist Diagnosis unknown Orders (Primary Dx) 09/12/2016 Hospital Radiology Arrived Encounter 09/10/2016 Scan Only HepatAiden Murphy MD 09/10/2016 Documentation Hepatology Aiden Basilio MD 09/09/2016 Telephone HepatAiden Murphy MD Follow-up Phone Call 09/09/2016 Orders Only Hepatology Neva Ann RN S/P TIPS ( transjugular intrahepatic portosystemic shunt); Other cirrhosis of liver (HCC) 09/09/2016 Orders Only Aiden Bowser MD S/P TIPS ( transjugular intrahepatic portosystemic shunt) (Primary Dx); Other cirrhosis of liver (HCC) 09/09/2016 Telephone Hepatology Mely Jaeger APRN Other - voice mail 09/02/2016 Telephone HepatMely Martinez APRN Records Request 09/01/2016 Telephone HepatAiden Murphy MD Appointment Request 08/28/2016 Telephone Transplant Surgery [...] Care Date Type Specialty Providers Description 09/23/2016 [facility] Radiology Aiden Basilio MD Encounter [id number] [place] [address] [phone] (Fax) 09/30/2016 Appointment Hepatology Mely Jaeger, SOCIAL SERVICE AGENCY DIRECTOR [address] [place] [address] [phone] (Fax) 09/30/2016 Appointment Radiology Aiden Basilio MD [id number] [place] [address] [phone] (Fax) 11/17/2016 Appointment Radiology Mely Jaeger, SOCIAL SERVICE AGENCY DIRECTOR [address] [place] [address] [phone] (Fax) Health Maintenance Due Date Last Done Comments Physical (Comprehensive) 1961 Exam Dilated Eye Exam 1972 Foot Exam 1972 Microalbumin 1972 Pneumonia Vaccine (Dm) 1972 Shingles Vaccine 2014 Influenza Vaccine 04/10/2016 Hba1c 05/02/2016 10/31/2015, 11/14/2014, 01/16/2014 Additional history exists Tetanus Vaccine 01/11/2019 01/11/2009 Colorectal Cancer 09/05/2020 09/05/2010, 07/11/2008, 06/09/2008 Screening Pertussis Vaccine Completed 01/11/2009 Results from Last [address] ABD/PEL EXTERNAL IMAGING (09/12/2016 10:00 AM) Narrative This order has been auto finalized and does not contain a result. BASIC METABOLIC PANEL (07/31/2016 9:15 AM)Only the [...]
--- NOTE | 2016-09-16 15:00 | ED Abdominal Pain ---
General Chief Complaint: Abdominal/GI Problems Stated Complaint: DIARRHEA Nursing Triage Note: pt reports increased abdominal swelling lower abdominal pain that is constant. Pt reports he has had decreased appetite and diahrrea x 4 days. Sepsis Screen: No Definite Risk Source of Information: Patient, Family (sister) Exam Limitations: No Limitations History of Present Illness Time Seen By Provider: 15:00 Initial Comments 61-year-old male patient presents to the ED with c/o increased abdominal swelling and lower abdominal pain. Patient was scheduled to have a paracentesis done today as an outpatient in radiology at 1430. Patient decided to come to the ED for evaluation. Reports decreased appetite and diarrhea for 4 days. Patient reports pain is now a 5/10. Sister reports patient took his usual pain meds approx 30 minutes before arrival. Sister reports patient is scheduled to have hepatic duct stent replaced next week at [facility]. Timing/Duration: 3-4 Days (diarrhea and decreased appetite.), Other (chronic lower abdominal pain, worse today.) Severity/Quality: Aching Location: Suprapubic Radiation: No Radiation Activities at Onset: None Modifying Factors: Worsens With Palpation Allergies and Home Medications Allergies Coded Allergies: No Known Drug Allergies (Unverified , 03/08/13) Home Medications Albuterol Sulfate 18 Gm Hfa.aer.ad 2 PUFF INH Q4H PRN PRN SHORTNESS OF BREATH ( Reported) Cholecalciferol (Vitamin D3) 2,000 Unit Capsule 2,000 UNIT PO HS (Reported) Desvenlafaxine Succinate 50 Mg Tab.sr.24h 50 MG PO DAILY @ 1200 (Reported) Furosemide 40 Mg Tablet 20 MG PO DAILY@0800,1200 (Reported) TAKES 1/2 OF A (40 MG) TABLET Glimepiride 4 Mg Tablet 8 MG PO DAILY (Reported) TAKES 2 (4 MG) TABLETS Ipratropium/Albuterol Sulfate 3 Ml Ampul.neb #60 3 ML INH UD use three times daily x 4 days then one time daily thereafter and may use every 2 hours prn for acute shortness of breath Prescribed by: BRITTANY RIOS on 08/20/16912 Lactobacillus Acidophilus 1 Each Capsule #21 1 EACH PO TID Prescribed by: BRITTANY RIOS on 08/20/16912 Melatonin/Pyridoxine HCl (B6) 1 Each Tab.mphase 10 MG PO HS PRN PRN SLEEP ( Reported) Mirtazapine 15 Mg Tablet 15 MG PO HS (Reported) Morphine Sulfate 15 Mg Tablet.er 15 MG PO TID PRN PRN SEVERE PAIN (Reported) Nitrofurantoin Monohyd/M-Cryst 100 Mg Capsule #14 1 TAB PO BID Prescribed by: SIMBA GALICIA on 09/16/161922 Omeprazole 20 Mg Capsule.dr 20 MG PO BID (Reported) Potassium Chloride 20 Meq Tab.er.prt 20 MEQ PO EVERY AFTERNOON (Reported) Rifaximin 550 Mg Tablet 550 MG PO BID (Reported) Trazodone HCl 50 Mg Tablet 50 MG PO HS (Reported) Review of Systems Constitutional: No chills, No diaphoresis, No fever, No malaise Respiratory: No Symptoms Reported Cardiovascular: No Symptoms Reported Gastrointestinal: See HPI Abdomen Distended Abdominal PainDenies Blood Streaked Stools, Denies Constipated, DiarrheaDenies Nausea, Poor AppetiteDenies Rectal Bleeding, Denies Vomiting, Denies Other (denies hematemesis) Genitourinary: Denies Burning, Denies Frequency, Denies Flank Pain, Denies Hematuria, Pain Musculoskeletal: no symptoms reported Skin: no symptoms reported Psychiatric/Neurological: No Symptoms Reported All Other Systems Reviewed Negative Unless Noted: Yes (Negative excepted noted.) Past Hzmstmb-Idwbaf-Kqboyx Hx Patient Social History Alcohol Use: Occasionally Uses Recreational Drug Use: No Smoking Status: Former Smoker Type Used: Cigarettes 2nd Hand Smoke Exposure: No Recent Foreign Travel: No Contact w/Someone Who Travel: No Recent Infectious Disease Expo: No Recent Hopitalizations: No Immunizations Up To Date Tetanus Booster (TDap): Less than 5yrs PED Vaccines UTD: No Date of Pneumonia Vaccine: Jul 10, 2008 Date of Influenza Vaccine: Jun 24, 2016 Seasonal Allergies Seasonal Allergies: No Surgeries HX Surgeries: Yes (FACIAL AND HEAD RECONSTRUCTION SECONDARY TO TRAUMA PER PT; VENA CAVA FILTER,) Surgeries: Vascular Surgery Respiratory Hx Respiratory Disorders: Yes Respiratory Disorders: COPD Cardiovascular Hx Cardiac Disorders: No Neurological Hx Neurological Disorders: Yes (MEMORY LOSS) Reproductive System Hx Reproductive Disorders: No Sexually Transmitted Disease: No HIV/AIDS: No Genitourinary Hx Genitourinary Disorders: No Gastrointestinal Hx Gastrointestinal Disorders: Yes (HEAPTITIS C--CHRONIC LIVER FAILURE) Gastrointestinal Disorders: Gastroesophageal Reflux, Liver Disease/Jaundice, Esophageal Varices, Hepatitis, Cirrhosis Musculoskeletal Hx Musculoskeletal Disorders: Yes (CHRONIC NECK PAIN, LUMBAR COMPRESSION FRACTURE ) Musculoskeletal Disorders: Chronic Back Pain, Fractures Endocrine Hx Endocrine Disorders: Yes (INSULIN + ORAL MEDICATIONS) Endocrine Disorders: Diabetes, Insulin dep HEENT HX ENT Disorders: No Loss of Vision: Denies Hearing Impairment: Denies Cancer Hx Cancer: Yes Cancer: Liver Psychosocial Hx Psychiatric Problems: Yes Behavioral Health Disorders: Anxiety Integumentary HX Skin/Integumentary Disorder: No Blood Transfusions Hx Blood Disorders: No Adverse Reaction to a Blood Tr: No Reviewed Nursing Assessment Reviewed/Agree w Nursing PMH: Yes Family Medical History Significant Family History: No Pertinent Family Hx, Hypertension Family Medial History: Coronary thrombosis Myocardial infarction Physical Exam Vital Signs VS - Last 72 Hours, by Label 09/16/16 09/16/16 14:24 19:23 Temp 97.1 97.1 Pulse 78 75 Resp 18 18 B/P 140/87 Pulse Ox 97 97 O2 Delivery Room Air Capillary Refill : Less Than 3 Seconds General Appearance: no apparent distress other (chronically ill appearing male patient ) HEENT: PERRL/EOMI pharynx normal Neck: supple normal inspection Respiratory: lungs clear normal breath sounds no respiratory distress Cardiovascular: regular rate, rhythm no murmur Gastrointestinal: distendedNo guarding, No rebound, tenderness (generalized ttp) Extremities: normal capillary refill pedal edema (3+ bilat) Back: normal inspection Neurologic/Psychiatric: alert normal mood/affect oriented x 3 Skin: warm/dry jaundice Progress/Results/Core Measures Results/Orders Lab Results Laboratory Tests Test 09/16/16 15:45 09/16/16 18:41 Range/Units Activated Partial Thromboplast Time 32 24-35 SEC Alanine Aminotransferase (ALT/SGPT) 20 0-55 U/L Albumin 3.2 3.2-4.5 G/DL Alkaline Phosphatase 73 40-136 U/L Ammonia 23 11-32 UMOL/L Anion Gap 9 5-14 MMOL/L Aspartate Amino Transf (AST/SGOT) 40 H 5-34 U/L BUN/Creatinine Ratio 21 Basophils # (Auto) 0.0 0.0-0.1 10^3/uL Basophils (%) (Auto) 0 0-10 % Blood Urea Nitrogen 16 7-18 MG/DL Calcium Level 8.5 8.5-10.1 MG/DL Carbon Dioxide Level 27 21-32 MMOL/L Chloride Level 101 98-107 MMOL/L Creatinine 0.76 0.60-1.30 MG/DL Eosinophils # (Auto) 0.1 0.0-0.3 10^3/uL Eosinophils (%) (Auto) 1 0-10 % Estimat Glomerular Filtration Rate > 60 Glucose Level 105 70-105 MG/DL Hematocrit 38 L 40-54 % Hemoglobin 12.9 L 13.3-17.7 G/DL INR Comment 1.4 0.8-1.4 Lipase 57 8-78 U/L Lymphocytes # (Auto) 0.5 L 1.0-4.0 X 10^3 Lymphocytes (%) (Auto) 9 L 12-44 % Mean Corpuscular Hemoglobin 29 25-34 PG Mean Corpuscular Hemoglobin Concent 34 32-36 G/DL Mean Corpuscular Volume 86 80-99 FL Mean Platelet Volume 10.5 H 7.4-10.4 FL Monocytes # (Auto) 0.6 0.0-1.0 X 10^3 Monocytes (%) (Auto) 13 H 0-12 % Neutrophils # (Auto) 3.7 1.8-7.8 X 10^3 Neutrophils (%) (Auto) 76 H 42-75 % Platelet Count 70 L 130-400 10^3/uL Potassium Level 3.6 3.6-5.0 MMOL/L Prothrombin Time 16.9 H 12.2-14.7 SEC Red Blood Count 4.44 4.35-5.85 10^6/uL Red Cell Distribution Width 14.8 H 10.0-14.5 % Sodium Level 137 135-145 MMOL/L Total Bilirubin 2.3 H 0.1-1.0 MG/DL Total Protein 6.6 6.4-8.2 G/DL White Blood Count 4.8 4.3-11.0 10^3/uL Urine Bacteria NEGATIVE /HPF Urine Bilirubin 1+ H NEGATIVE Urine Casts NONE /LPF Urine Clarity VERY CLOUDY H Urine Color JASVIR H Urine Crystals NONE /LPF Urine Culture Indicated YES Urine Glucose (UA) NEGATIVE NEGATIVE Urine Ketones 2+ H NEGATIVE Urine Leukocyte Esterase 1+ H NEGATIVE Urine Mucus LARGE H /LPF Urine Nitrite POSITIVE H NEGATIVE Urine Protein 2+ H NEGATIVE Urine RBC NONE /HPF Urine RBC (Auto) NEGATIVE NEGATIVE Urine Specific [place] 1.025 H 1.016-1.022 Urine Squamous Epithelial Cells 5-10 /HPF Urine Urobilinogen 1 NORMAL MG/DL Urine WBC 0-2 /HPF Urine pH 5 5-9 Micro Results Microbiology 09/16/16 Urine Culture - Preliminary, Resulted My Orders Orders-SIMBA GALICIA Ammonia (09/16/16 14:12) Cbc With Automated Diff (09/16/16 14:12) Comprehensive Metabolic Panel (09/16/16 14:12) Lipase (09/16/16 14:12) Ua Culture If Indicated (09/16/16 14:12) Saline Lock/Iv-Start (09/16/16 14:12) Morphine Injection (Morphine Injection (09/16/16 16:15) Ondansetron Injection (Zofran Injectio (09/16/16 16:15) Ns Iv 500 Ml (Sodium Chloride 0.9%) (09/16/16 16:15) Protime With Inr (09/16/16 16:49) Partial Thromboplastin Time (09/16/16 16:49) Oxycodone Immediate Rel Tablet (Oxyir Ta (09/16/16 17:30) Furosemide Injection (Lasix Injection) (09/16/16 18:30) Urine Culture (09/16/16 18:41) Medications Given in ED Vital Signs/I&O Vital Sign - Last 12Hours 09/16/16 09/16/16 14:24 19:23 Temp 97.1 97.1 Pulse 78 75 Resp 18 18 B/P 140/87 Pulse Ox 97 97 O2 Delivery Room Air Blood Pressure Mean: 104 Diagnostic Imaging Diagonstic Imaging: Xray Plain Films/CT/US/NM/MRI: chest Comments FINDINGS: A nodular density projecting over the right 1st rib costochondral junction is again seen with no definite change from 01/30/2015. Otherwise, the lungs are clear. The heart size is normal. No effusion or pneumothorax. The mediastinum and ligia appear unremarkable. IMPRESSION: No acute process. A stable nodular density in the right lung apex is probably a calcified granuloma. Dictated by: Dictated on workstation # [id number] Reviewed: Reviewed by Me (radiology report reviewed by me) Departure Communication Progress Notes Patient case discussed with Dr. Peres. Per Dr. Peres, they are unable to do the paracentesis tonight as it is after 1500. All radiology nursing staff is gone for the day. Dr. Peres is able to do the paracentesis tomorrow morning as an outpatient. Requests patient to call first thing in the morning for appointment time. Patient case discussed with Dr. Mosher with recommendations for patient to f/u as an outpatient tomorrow with Dr. Peres for paracentesis. All laboratory findings, diagnostic study findings, and recommendations by Dr. Peres and Dr. Mosher discussed with the patient and family. Patient reports feeling better at this time. Plan for discharge to home with oral antibiotics. Patient reports the home morphine is helping with the pain. All return precautions were discussed with the patient as described in the discharge instructions of this report. Patient voices understanding and agrees with the treatment plan. Patient case discussed with Dr. Pedroza, he agrees with the plan of care. Impression Impression: Primary Impression: Ascites Additional Impressions: Abdominal pain Urinary tract infection Disposition: HOME, SELF-CARE Condition: Improved Departure-Patient Inst. Decision time for Depature: 17:46 Referrals: BRITTANY RIOS MD (PCP/Family) Primary Care Physician Patient Instructions: Fluid in the Belly (Ascites) (DC), Acute Abdomen (Belly Pain), Adult (DC), Urinary Tract Infection, Adult (DC) Add. Discharge Instructions: All discharge instructions reviewed with patient and/or family. Voiced understanding. Continue usual home medications. Continue usual diet. Follow -up with your communications specialist as an outpatient at the next scheduled appointment. Contact radiology at [facility] for similar morning to schedule a paracentesis for tomorrow morning. Return to the emergency department for worsened pain, fever, vomiting, vomiting blood, black stools, rectal bleeding, or any other concerns. Scripts Nitrofurantoin Monohyd/M-Cryst (Macrobid 100 mg Capsule)100 Mg Capsule1 Tab PO BID #14 CAP Ref 0 Prov:SIMBA GALICIA 09/16/16 SIMBA GALICIA Sep 16, 2016 15:00
[2016-09-16 15:57] LABS: BASOPHILS % (AUTO) 0 % (0-10); EOSINOPHILS # (AUTO) 0.1 10^3/uL (0.0-0.3); EOSINOPHILS % (AUTO) 1 % (0-10); LYMPHOCYTES # (AUTO) 0.5 X 10^3 (1.0-4.0); LYMPHOCYTES % (AUTO) 9 % (12-44); MEAN CORPUSCULAR HEMOGLOBIN 29 PG (25-34); MEAN CORPUSCULAR HGB CONC 34 G/DL (32-36); MEAN CORPUSCULAR VOLUME 86 FL (80-99); MEAN PLATELET VOLUME 10.5 FL (7.4-10.4); MONOCYTES # (AUTO) 0.6 X 10^3 (0.0-1.0); MONOCYTES % (AUTO) 13 % (0-12); NEUTROPHILS # (AUTO) 3.7 X 10^3 (1.8-7.8); NEUTROPHILS % (AUTO) 76 % (42-75); PLATELET COUNT 70 10^3/uL (130-400); RED BLOOD COUNT 4.44 10^6/uL (4.35-5.85); RED CELL DISTRIBUTION WIDTH 14.8 % (10.0-14.5); WHITE BLOOD COUNT 4.8 10^3/uL (4.3-11.0)
[2016-09-16] MEDS ORDERED: morphine INJ 10 MG/ML 1ML (SYR OR VIAL) IVP STA (16:15)
[2016-09-16] MEDS ORDERED: ONDANSETRON 4 MG/2 ML (SDV) Z0FRAN IVP ONE (16:15)
[2016-09-16] MEDS ORDERED: NS IV 500 ML 500 ML IV ONE (16:15)
[2016-09-16 16:19] LABS: ALANINE AMINOTRANSFERASE 20 U/L (0-55); ALBUMIN 3.2 G/DL (3.2-4.5); AMMONIA 23 UMOL/L (11-32); ANION GAP 9 MMOL/L (5-14); ASPARTATE AMINO TRANSFERASE 40 U/L (5-34); BILIRUBIN,TOTAL 2.3 MG/DL (0.1-1.0); BLOOD UREA NITROGEN 16 MG/DL (7-18); BUN/CREATININE RATIO 21; CALCIUM 8.5 MG/DL (8.5-10.1); CARBON DIOXIDE 27 MMOL/L (21-32); CHLORIDE 101 MMOL/L (98-107); CREATININE SERUM 0.76 MG/DL (0.60-1.30); GFR ESTIMATED > 60; GLUCOSE 105 MG/DL (70-105); LIPASE 57 U/L (8-78); POTASSIUM 3.6 MMOL/L (3.6-5.0); SODIUM 137 MMOL/L (135-145); TOTAL PROTEIN 6.6 G/DL (6.4-8.2)
[2016-09-16 16:58] LABS: INR 1.4 (0.8-1.4); PROTHROMBIN TIME PATIENT 16.9 SEC (12.2-14.7)
[2016-09-16] MEDS ORDERED: FUROSEMIDE 40 MG/4 ML INJ (LASIX) IV STA (18:30)
[2016-09-16 18:45] LABS: KETONES,URINE 2+ (NEGATIVE); LEUKOCYTE ESTERASE ,URINE 1+ (NEGATIVE); NITRITE,URINE POSITIVE (NEGATIVE); PH,URINE 5 (5-9); PROTEIN,URINE 2+ (NEGATIVE); UROBILINOGEN,URINE 1 MG/DL (NORMAL)
[2016-09-16 19:09] LABS: BILIRUBIN,URINE 1+ (NEGATIVE); WBC,URINE 0-2 /HPF
[2016-09-16] MEDS ORDERED: NITR-65 PO ×2 (19:16→19:23)
[2016-09-16 19:23] VITALS: BP 125/83
== END 2016-09-16 19:23 | disposition home or self-care (01) ==
LOC: EDUNIT# 13:53 → ER 13:57
DX: K71.51 Toxic liver disease with chronic active hepatitis with ascites (principal); R10.84 Generalized abdominal pain; N39.0 Urinary tract infection, site not specified; R91.8 Other nonspecific abnormal finding of lung field; J44.9 Chronic obstructive pulmonary disease, unspecified; E11.9 Type 2 diabetes mellitus without complications; Z79.84 Long term (current) use of oral hypoglycemic drugs; Z79.899 Other long term (current) drug therapy; Z87.891 Personal history of nicotine dependence
CPT/HCPCS: 36415; 80053; 81000; 82140; 83690; 85025; 85610; 85730; 87088; 96361; 96374; 96375

== ENCOUNTER → 2016-09-17 | Outpatient (CLI) | payer MEDICARE, MEDICAID ==
[~2016-09-17] VITALS: Ht 182.9 cm; Wt 105.2 kg
[~2016-09-17] MED LIST changes: +ALBUMIN 25% 25 GM/100 ML 100 ML IV NR; +LIDOCAINE 1% INJ 20 ML (XYLOCAINE) VIAL INJ ONE; +LIDOCAINE 1% INJ 20 ML (XYLOCAINE) VIAL ONE; +NITR-65 PO
--- OUTSIDE RECORDS SUMMARY | 2016-09-17 10:15 | XMS REPORT | Continuity of Care Document ---
Author Author [facility] Organization [facility] Address Unknown Phone Unavailable Care Team Providers Care Chief Operator Synthesis Name Role Phone Osei Lyn PCP [phone] Source Comments Some departments are not documenting in the electronic medical record. If you do not see the information that you expected, contact Release of Information in the Health Information Management department at [phone] for further assistance in locating additional records.[facility] Active Allergies and Adverse Reactions No [...] Care Date Type Specialty Providers Description 09/23/2016 [facility] Radiology Aiden Basilio MD Encounter [id number] [place] [address] [phone] (Fax) 09/30/2016 Appointment Hepatology Mely Jaeger, DESIGN PROJECT MANAGER [address] [place] [address] [phone] (Fax) 09/30/2016 Appointment Radiology Aiden Basilio MD [id number] [place] [address] [phone] (Fax) 11/17/2016 Appointment Radiology Mely Jaeger, DESIGN PROJECT MANAGER [address] [place] [address] [phone] (Fax) Health Maintenance Due Date Last Done [...]
[2016-09-17 10:30] VITALS: BP 112/62
[2016-09-17 11:56] VITALS: BP 128/82
--- NOTE | 2016-09-17 13:50 | Diagnostic Imaging Report ---
EXAMINATION: Ultrasound-guided paracentesis. INDICATION: Ascites. CONSENT: Informed consent was obtained from the patient. The risks, benefits, potential complications and alternatives were reviewed and all questions answered to the patient's satisfaction. The patient's vital signs, cardiac rhythm, and pulse oximetry with observed throughout the procedure by qualified nursing personnel. Sedation/Medications: Albumin 25 gm IV. FINDINGS: ascites. PROCEDURE: After sterile preparation and draping, 1% lidocaine was utilized for local anesthesia. Following sterile preparation and local anesthetic and using 2 D real-time ultrasound for guidance, a 5 Fr sheath on a trocar needle was introduced into the peritoneal fluid collection in the right lower quadrant from an anterior approach. Images of needle position documented. Initial fluid return was thin, serous fluid. The sheath was advanced into the deepest fluid pocket and a total of 4.2 liters of abbie-colored fluid was then evacuated from the peritoneum without difficulty. No immediate complications. IMPRESSION: Successful ultrasound guided paracentesis. Dictated by: Dictated on workstation # [id number]
== END ==
LOC: RAD 10:11
PROVIDERS: ATTEND Family Medicine
DX: K72.90 Hepatic failure, unspecified without coma (principal); R18.8 Other ascites
CPT/HCPCS: 49083

== ENCOUNTER → 2016-10-20 | Outpatient (CLI) | payer MEDICARE, MEDICAID ==
[~2016-10-20] MED LIST changes: -ALBUMIN 25% 25 GM/100 ML 100 ML IV NR; -LIDOCAINE 1% INJ 20 ML (XYLOCAINE) VIAL INJ ONE; -LIDOCAINE 1% INJ 20 ML (XYLOCAINE) VIAL ONE
--- OUTSIDE RECORDS SUMMARY | 2016-10-20 09:13 | XMS REPORT | Continuity of Care Document ---
Author Author [facility] Organization [facility] Address Unknown Phone Unavailable Care Team Providers Care Drawer In Dobby Loom Name Role Phone Osei Lyn PCP [phone] Source Comments Some departments are not documenting in the electronic medical record. If you do not see the information that you expected, contact Release of Information in the Health Information Management department at [phone] for further assistance in locating additional records.[facility] Active Allergies and Adverse Reactions [...] Hepatology Mely Jaeger APRN Results 09/15/2016 Telephone HepatAiden Murphy MD Follow-up Phone Call 09/13/2016 Ancillary Radiology [...] Bowser MD Follow-up Phone Call 08/28/2016 Telephone HepatAiden Murphy MD Appointment Request - Cancel, pt in ED 08/22/2016 Telephone Aiden Bowser MD Patient Reminder Call 07/31/2016 Orders Only Hepatology Sara Calderon End-stage liver disease (HCC); Hepatic fibrosis (HCC); End stage liver disease (HCC) Immunizations Name Dates Previously Given Next [...] Taken Blood Pressure 121/69 09/30/2016 1:03 PM TIRE FABRIC INSPECTOR Pulse 64 09/30/2016 1:03 PM TIRE FABRIC INSPECTOR Temperature 36.6 C (97.8 F) 09/30/2016 1:03 PM TIRE FABRIC INSPECTOR Respiratory Rate 16 09/30/2016 1:03 PM TIRE FABRIC INSPECTOR Height 1.829 m (6') 09/30/2016 1:03 PM TIRE FABRIC INSPECTOR Weight 95.437 kg (210 lb 6.4 oz) 09/30/2016 1:03 PM TIRE FABRIC INSPECTOR Body Mass Index 28.53 09/30/2016 1:03 PM TIRE FABRIC INSPECTOR Oxygen Saturation 100% 09/30/2016 1:03 PM TIRE FABRIC INSPECTOR Plan of Care Date Type Specialty Providers Description 01/06/2017 Appointment Hepatology Mely Jaeger, CHIEF LENDING OFFICER [address] [place] [address] [phone] (Fax) Health Maintenance Due Date Last Done [...] STRIPS-SCAN 09/25/2016 Results for this 11:57 AM TIRE FABRIC INSPECTOR procedure are in the results section. CONSULT IV THERAPY TEAM STAT 09/23/2016 7:39 PM TIRE FABRIC INSPECTOR Results from Last 3 Months TELEMETRY STRIPS-SCAN [...] exam. Procedure Note Interface, Radiant Results - Wed Sep 24, 2016 12:[address] Abdomen Clinical Indication: Male, 61 years [...] into the inferior vena cava. A 9 [place] angled sheath was then placed. A 5 [place] RODOLFO 1 catheter was advanced over a Glidewire and used to select the TIPS shunt into the portal vein. The wire was then exchanged for a 0.035 Amplatz wire. The catheter was then exchanged for a marking pigtail catheter. Pressure measurements as well as angiography performed. A 10 mm x 4 cm [place] balloon was then advanced over the wire and used to perform angioplasty of the length of the TIPS. The balloon was then removed over the wire and repeat angiogrammed was performed. Residual adherent clot to the wall of the main portal vein was identified. The sheath was advanced into the distal TIPS. A gut cleaner device was used to macerate the [...] with a 10 mm x 4 cm [place] balloon. Next mechanical thrombectomy performed within the [...] L. Procedure Note Interface, Radiant Results - [facility] Sep 23, 2016 3:24 PM TIRE FABRIC INSPECTOR 1. TIPS check and revision. 2. Paracentesis [...] into the inferior vena cava. A 9 [place] angled sheath was then placed. A 5 [place] RODOLFO 1 catheter was advanced over a Glidewire and used to select the TIPS shunt into the portal vein. The wire was then exchanged for a 0.035 Amplatz wire. The catheter was then exchanged for a marking pigtail catheter. Pressure measurements as well as angiography performed. A 10 mm x 4 cm [place] balloon was then advanced over the wire and used to perform angioplasty of the length of the TIPS. The balloon was then removed over the wire and repeat angiogrammed was performed. Residual adherent clot to the wall of the main portal vein was identified. The sheath was advanced into the distal TIPS. A gut cleaner device was used to macerate the [...] with a 10 mm x 4 cm [place] balloon. Next mechanical thrombectomy performed within the [...] mmHg to 8 mmHg. Successful ultrasound-guided paracentesis. Jeffy Cardona M.D, the attending radiologist, was present for [...] on 09/23/2016 3:21 PM. Dictated by Randolph Mcrathur M.D. on 09/23/2016 2:48 PM. IR VENOUS DIAGNOSTIC/INTERVENTION (09/23/2016 2:02 PM) Impressions Successful tips revision with reduction of portosystemic gradient from 20 mmHg to 8 mmHg. Successful ultrasound-guided paracentesis. Jeffy Cardona M.D, the attending radiologist, was present for [...] into the inferior vena cava. A 9 [place] angled sheath was then placed. A 5 [place] RODOLFO 1 catheter was advanced over a Glidewire and used to select the TIPS shunt into the portal vein. The wire was then exchanged for a 0.035 Amplatz wire. The catheter was then exchanged for a marking pigtail catheter. Pressure measurements as well as angiography performed. A 10 mm x 4 cm [place] balloon was then advanced over the wire and used to perform angioplasty of the length of the TIPS. The balloon was then removed over the wire and repeat angiogrammed was performed. Residual adherent clot to the wall of the main portal vein was identified. The sheath was advanced into the distal TIPS. A gut cleaner device was used to macerate the [...] with a 10 mm x 4 cm [place] balloon. Next mechanical thrombectomy performed within the [...] L. Procedure Note Interface, Radiant Results - Tue Sep 23, 2016 3:24 PM TIRE FABRIC INSPECTOR 1. TIPS check and revision. 2. Paracentesis [...] into the inferior vena cava. A 9 [place] angled sheath was then placed. A 5 [place] RODOLFO 1 catheter was advanced over a Glidewire and used to select the TIPS shunt into the portal vein. The wire was then exchanged for a 0.035 Amplatz wire. The catheter was then exchanged for a marking pigtail catheter. Pressure measurements as well as angiography performed. A 10 mm x 4 cm [place] balloon was then advanced over the wire and used to perform angioplasty of the length of the TIPS. The balloon was then removed over the wire and repeat angiogrammed was performed. Residual adherent clot to the wall of the main portal vein was identified. The sheath was advanced into the distal TIPS. A gut cleaner device was used to macerate the [...] with a 10 mm x 4 cm [place] balloon. Next mechanical thrombectomy performed within the [...]
--- NOTE | 2016-10-20 14:34 | Diagnostic Imaging Report ---
EXAMINATION: Liver duplex ultrasound. INDICATION: TIPS check after recanalization performed two weeks ago. FINDINGS: The TIPS stent is patent with velocities at the portal venous end of 150, at mid segment 170 and in the hepatic venous end at 142 cm/sec. The IVC is obscured. The TIPS caliber is 1 cm. The main portal vein is 1 cm in caliber and is patent. The right hepatic, middle hepatic and left hepatic veins are all patent. The left hepatic lobe is obscured by bowel gas. The spleen is moderately enlarged at 14.9 cm in length. Hepatopetal flow in the portal vein seen. There is normal splenofugal flow in the splenic vein. IMPRESSION: The TIPS stent is patent. Dictated by: Dictated on workstation # [id number]
== END ==
LOC: RAD 09:09
PROVIDERS: ATTEND Nurse Practitioner Acute Care
DX: Z48.89 Encounter for other specified surgical aftercare (principal); Z95.828 Presence of other vascular implants and grafts
CPT/HCPCS: 93975

== ENCOUNTER → 2016-12-15 | Outpatient (CLI) | payer MEDICARE, MEDICAID ==
[~2016-12-15] MED LIST changes: +CATHETER FLUSH 10 ML SYR IV PRN; +IOHEXOL 350 MG/ML 100 ML (OMNIPAQUE 350) VIAL IV ONE; +NS 100 ML (IVPB) BAG IV ONE
== END ==
LOC: RAD 09:07
PROVIDERS: ATTEND Nurse Practitioner Adult Health
DX: C22.0 Liver cell carcinoma (principal); K72.90 Hepatic failure, unspecified without coma; Z95.828 Presence of other vascular implants and grafts
CPT/HCPCS: 74170

== ENCOUNTER → 2016-12-18 | Outpatient (CLI) | payer MEDICARE, MEDICAID ==
--- NOTE | 2016-12-18 14:17 | Diagnostic Imaging Report ---
PROCEDURE: CT abdomen with and without contrast. TECHNIQUE: Multiple contiguous axial CT images of the abdomen were obtained prior to and after intravenous administration of iodinated contrast. INDICATION: End-stage liver disease, TIPS. FINDINGS: Since the previous examination, the portosystemic shunt has been extended more inferiorly than previously and is within the portal vein. The shunt starts just in the IVC. No constriction is present. Contrast injection is not adequate enough to evaluate for patency. The intrahepatic ductal dilatation appears to have increased. The common bile duct is difficult to evaluate due to streak artifact from adjacent embolization coils. The liver is again seen to be shrunken and nodular. The spleen is enlarged and measures 15.4 x 7.0 cm and spans 16.9 cm. Previously, this measured 17.5 x 7.5 cm and spanned 20.1 cm. The ascites has resolved. No pleural effusions are present. The pancreas, adrenal glands, and kidneys appear normal. Arteriosclerosis is present. The bowel loops appear unremarkable. IMPRESSION: 1. There is increasing dilatation of the bile ducts. Consider MRI for evaluation of an obstructing mass. 2. There has been revision of the portosystemic shunt with extension into the portal vein. The ascites has resolved in the spleen is smaller consistent with a functioning shunt. Dictated by: Dictated on workstation # [id number]
== END ==
LOC: RAD 09:42
PROVIDERS: ATTEND Nurse Practitioner Adult Health
DX: C22.0 Liver cell carcinoma (principal); K72.90 Hepatic failure, unspecified without coma; K83.8 Other specified diseases of biliary tract; Z95.828 Presence of other vascular implants and grafts
CPT/HCPCS: 74170

== ENCOUNTER 2016-12-22 17:08 | Observation (INO) | payer MEDICARE, MEDICAID ==
[~2016-12-22] VITALS: Ht 182.9 cm; Wt 105.2 kg
[~2016-12-22 17:08] MED LIST changes: -ALBU18HF2 IH; -LACT10SO PO
[2016-12-22] MEDS ORDERED: ASPIRIN 81 MG CHEW (CHILDREN'S ASA) PO ONE (17:15)
[2016-12-22] MEDS ORDERED: RT-ALBUTEROL SULF 2.5 MG/3 ML PRE-MIX VIAL IH SCH (17:15)
[2016-12-22] MEDS ORDERED: methylPREDNISolone 125 MG (Solu-MEDROL) VIAL IVP ONE (17:15)
[2016-12-22] MEDS ORDERED: RT-ALBUTEROL SULF 2.5 MG/3 ML PRE-MIX VIAL IH ONE (17:15)
[2016-12-22] MEDS ORDERED: RT-ALBUTEROL/IPRATROPIUM 3 ML (DUONEB) VIAL INH ONE ×2 (17:15)
[2016-12-22 17:46] LABS: BASOPHILS % (AUTO) 0 % (0-10); EOSINOPHILS # (AUTO) 0.1 10^3/uL (0.0-0.3); EOSINOPHILS % (AUTO) 1 % (0-10); LYMPHOCYTES # (AUTO) 0.6 X 10^3 (1.0-4.0); LYMPHOCYTES % (AUTO) 6 % (12-44); MEAN CORPUSCULAR HEMOGLOBIN 30 PG (25-34); MEAN CORPUSCULAR HGB CONC 35 G/DL (32-36); MEAN CORPUSCULAR VOLUME 87 FL (80-99); MEAN PLATELET VOLUME 10.2 FL (7.4-10.4); MONOCYTES # (AUTO) 1.3 X 10^3 (0.0-1.0); MONOCYTES % (AUTO) 13 % (0-12); NEUTROPHILS # (AUTO) 7.9 X 10^3 (1.8-7.8); NEUTROPHILS % (AUTO) 80 % (42-75); PLATELET COUNT 67 10^3/uL (130-400); RED BLOOD COUNT 4.21 10^6/uL (4.35-5.85); RED CELL DISTRIBUTION WIDTH 17.1 % (10.0-14.5); WHITE BLOOD COUNT 9.9 10^3/uL (4.3-11.0)
[2016-12-22 18:07] LABS: EOSINOPHILS % (MANUAL) 1 %; LYMPHOCYTES % (MANUAL) 5 %; NEUTROPHILS % (MANUAL) 86 %
[2016-12-22 18:15] LABS: ALANINE AMINOTRANSFERASE 23 U/L (0-55); ALBUMIN 3.2 G/DL (3.2-4.5); ANION GAP 6 MMOL/L (5-14); ASPARTATE AMINO TRANSFERASE 42 U/L (5-34); BILIRUBIN,TOTAL 3.8 MG/DL (0.1-1.0); BLOOD UREA NITROGEN 11 MG/DL (7-18); BUN/CREATININE RATIO 17; CALCIUM 8.4 MG/DL (8.5-10.1); CARBON DIOXIDE 27 MMOL/L (21-32); CHLORIDE 102 MMOL/L (98-107); CREATININE SERUM 0.65 MG/DL (0.60-1.30); GFR ESTIMATED > 60; GLUCOSE 177 MG/DL (70-105); MAGNESIUM 1.7 MG/DL (1.8-2.4); POTASSIUM 3.6 MMOL/L (3.6-5.0); SODIUM 135 MMOL/L (135-145); TOTAL PROTEIN 6.6 G/DL (6.4-8.2)
[2016-12-22 18:16] LABS: INR 1.4 (0.8-1.4)
--- NOTE | 2016-12-22 18:20 | Diagnostic Imaging Report ---
INDICATION: Chest pain COMPARISON: 08/28/2016 FINDINGS: Single frontal view of the chest demonstrates normal heart size and pulmonary vascularity. The lungs are well aerated and clear. No large pleural effusion or pneumothorax is seen. The visualized osseous structures show no acute abnormalities. IMPRESSION: 1. No acute cardiopulmonary process. Dictated by: Dictated on workstation # [id number]
[2016-12-22 18:22] LABS: MYOGLOBIN SERUM 73.4 NG/ML (10.0-92.0)
--- NOTE | 2016-12-22 18:26 | ED Chest Pain ---
General Chief Complaint: Chest Pain Stated Complaint: SOB/CP Source: patient Exam Limitations: no limitations History of Present Illness Time seen by provider: 18:23 Initial Comments Brought to ER by respiratory therapy with reports of chest pain and shortness of breath and cough. Patient was sent to the respiratory therapy department to have an outpatient EKG done after he presented to Dr. Lyn's clinic for some chest pain today. Given his history of COPD anymore as prescribed him prednisone, azithromycin and Omnicef. He has not yet filled any of those as he came directly here. He also has hepatitis C with cirrhosis and subsequent thrombocytopenia, CT scan in September of this year showed a concern for recurrence of hepatocellular carcinoma. He follows with hepatology at . His cough has been productive in nature and present for 2-3 days associated with increased shortness of breath. His chest pain has been constant since last night and worsened with breathing and coughing. Timing/Duration: 2-3 days Severity/Quality: moderate Location: central Activities at Onset: none ASA po OPERATIONS MANAGER/COORDINATOR: No NTG SL OPERATIONS MANAGER/COORDINATOR: No Associated Symptoms: No abdominal pain, No dizziness, No nausea/vomiting Allergies and Home Medications Allergies Coded Allergies: No Known Drug Allergies (Unverified , 03/08/13) Home Medications Albuterol Sulfate 18 Gm Hfa.aer.ad, 2 PUFF INH Q4H PRN for SHORTNESS OF BREATH, (Reported) Cholecalciferol (Vitamin D3) 2,000 Unit Capsule, 2,000 UNIT PO HS, (Reported) Desvenlafaxine Succinate 50 Mg Tab.sr.24h, 50 MG PO DAILY @ 1200, (Reported) Furosemide 40 Mg Tablet, 20 MG PO DAILY@0800,1200, (Reported) TAKES 1/2 OF A (40 MG) TABLET Glimepiride 4 Mg Tablet, 8 MG PO DAILY, (Reported) TAKES 2 (4 MG) TABLETS Ipratropium/Albuterol Sulfate 3 Ml Ampul.neb, 3 ML INH UD, #60 Ref 4 use three times daily x 4 days then one time daily thereafter and may use every 2 hours prn for acute shortness of breath Prescribed by: BRITTANY LYN on 08/20/16912 Lactobacillus Acidophilus 1 Each Capsule, 1 EACH PO TID, #21 Prescribed by: BRITTANY LYN on 08/20/16912 Melatonin/Pyridoxine HCl (B6) 1 Each Tab.mphase, 10 MG PO HS PRN for SLEEP, ( Reported) Mirtazapine 15 Mg Tablet, 15 MG PO HS, (Reported) Morphine Sulfate 15 Mg Tablet.er, 15 MG PO TID PRN for SEVERE PAIN, (Reported) Nitrofurantoin Monohyd/M-Cryst 100 Mg Capsule, 1 TAB PO BID, #14 Ref 0 Prescribed by: SIMBA GALICIA on 09/16/161922 Omeprazole 20 Mg Capsule.dr, 20 MG PO BID, (Reported) Potassium Chloride 20 Meq Tab.er.prt, 20 MEQ PO EVERY AFTERNOON, (Reported) Rifaximin 550 Mg Tablet, 550 MG PO BID, (Reported) Trazodone HCl 50 Mg Tablet, 50 MG PO HS, (Reported) Review of Systems Constitutional: see HPI EENTM: No Symptoms Reported Respiratory: See HPI, Shortness of Air, Wheezing Cardiovascular: See HPI, Chest Pain Gastrointestinal: See HPI Genitourinary: No Symptoms Reported Musculoskeletal: no symptoms reported Skin: no symptoms reported Psychiatric/Neurological: No Symptoms Reported Endocrine: No Symptoms Reported Past Qsctrlu-Bmbjjq-Cwwqwi Hx Patient Social History Type Used: Cigarettes 2nd Hand Smoke Exposure: No Recent Hopitalizations: No Immunizations Up To Date Tetanus Booster (TDap): Less than 5yrs PED Vaccines UTD: No Date of Pneumonia Vaccine: Jul 10, 2008 Date of Influenza Vaccine: Jun 24, 2016 Seasonal Allergies Seasonal Allergies: No Surgeries HX Surgeries: Yes (FACIAL AND HEAD RECONSTRUCTION SECONDARY TO TRAUMA PER PT; VENA CAVA FILTER,) Surgeries: Vascular Surgery Respiratory Hx Respiratory Disorders: Yes Respiratory Disorders: COPD Cardiovascular Hx Cardiac Disorders: No Neurological Hx Neurological Disorders: Yes (MEMORY LOSS) Reproductive System Hx Reproductive Disorders: No Sexually Transmitted Disease: No HIV/AIDS: No Genitourinary Hx Genitourinary Disorders: No Gastrointestinal Hx Gastrointestinal Disorders: Yes (HEAPTITIS C--CHRONIC LIVER FAILURE) Gastrointestinal Disorders: Gastroesophageal Reflux, Liver Disease/Jaundice, Esophageal Varices, Hepatitis, Cirrhosis Musculoskeletal Hx Musculoskeletal Disorders: Yes (CHRONIC NECK PAIN, LUMBAR COMPRESSION FRACTURE ) Musculoskeletal Disorders: Chronic Back Pain, Fractures Endocrine Hx Endocrine Disorders: Yes (INSULIN + ORAL MEDICATIONS) Endocrine Disorders: Diabetes, Insulin dep HEENT HX ENT Disorders: No Loss of Vision: Denies Hearing Impairment: Denies Cancer Hx Cancer: Yes Cancer: Liver Psychosocial Hx Psychiatric Problems: Yes Behavioral Health Disorders: Anxiety Integumentary HX Skin/Integumentary Disorder: No Blood Transfusions Hx Blood Disorders: No Adverse Reaction to a Blood Tr: No Family Medical History Significant Family History: No Pertinent Family Hx, Hypertension Family Medial History: Coronary thrombosis Myocardial infarction Physical Exam Vital Signs Vital Sign - Last 12Hours 12/22/16 12/22/16 17:15 17:30 Temp 99.4 Pulse 77 Resp 20 B/P (MAP) 141/84 Pulse Ox 97 O2 Delivery Nasal Cannula O2 Flow Rate 2.00 Capillary Refill : General Appearance: No Apparent Distress, WD/WN HEENT: PERRL/EOMI, TMs Normal Neck: Full Range of Motion, Normal Inspection Respiratory: Accessory Muscle Use, Decreased Breath Sounds, Wheezing Cardiovascular: Regular Rate, Rhythm, Normal Peripheral Pulses Gastrointestinal: Normal Bowel Sounds, Non Tender, Soft Extremity: Normal Capillary Refill, Normal Inspection Neurologic/Psychiatric: Alert, Oriented x3, No Motor/Sensory Deficits Skin: Normal Color, Warm/Dry, Jaundice Focused Exam Lactic Acid Level Laboratory Tests Test 12/22/16 18:10 Progress/Results/Core Measures Results/Orders Lab Results Laboratory Tests Test 12/22/16 17:40 12/22/16 18:10 Range/Units White Blood Count 9.9 4.3-11.0 10^3/uL Red Blood Count 4.21 L 4.35-5.85 10^6/uL Hemoglobin 12.6 L 13.3-17.7 G/DL Hematocrit 37 L 40-54 % Mean Corpuscular Volume 87 80-99 FL Mean Corpuscular Hemoglobin 30 25-34 PG Mean Corpuscular Hemoglobin Concent 35 32-36 G/DL Red Cell Distribution Width 17.1 H 10.0-14.5 % Platelet Count 67 L 130-400 10^3/uL Mean Platelet Volume 10.2 7.4-10.4 FL Neutrophils (%) (Auto) 80 H 42-75 % Lymphocytes (%) (Auto) 6 L 12-44 % Monocytes (%) (Auto) 13 H 0-12 % Eosinophils (%) (Auto) 1 0-10 % Basophils (%) (Auto) 0 0-10 % Neutrophils # (Auto) 7.9 H 1.8-7.8 X 10^3 Lymphocytes # (Auto) 0.6 L 1.0-4.0 X 10^3 Monocytes # (Auto) 1.3 H 0.0-1.0 X 10^3 Eosinophils # (Auto) 0.1 0.0-0.3 10^3/uL Basophils # (Auto) 0.0 0.0-0.1 10^3/uL Neutrophils % (Manual) 86 % Lymphocytes % (Manual) 5 % Monocytes % (Manual) 8 % Eosinophils % (Manual) 1 % Blood Morphology Comment NORMAL Prothrombin Time 17.0 H 12.2-14.7 SEC INR Comment 1.4 0.8-1.4 Activated Partial Thromboplast Time 36 H 24-35 SEC Sodium Level 135 135-145 MMOL/L Potassium Level 3.6 3.6-5.0 MMOL/L Chloride Level 102 98-107 MMOL/L Carbon Dioxide Level 27 21-32 MMOL/L Anion Gap 6 5-14 MMOL/L Blood Urea Nitrogen 11 7-18 MG/DL Creatinine 0.65 0.60-1.30 MG/DL Estimat Glomerular Filtration Rate > 60 BUN/Creatinine Ratio 17 Glucose Level 177 H 70-105 MG/DL Calcium Level 8.4 L 8.5-10.1 MG/DL Magnesium Level 1.7 L 1.8-2.4 MG/DL Total Bilirubin 3.8 H 0.1-1.0 MG/DL Aspartate Amino Transf (AST/SGOT) 42 H 5-34 U/L Alanine Aminotransferase (ALT/SGPT) 23 0-55 U/L Alkaline Phosphatase 90 40-136 U/L Myoglobin 73.4 10.0-92.0 NG/ML Troponin I < 0.30 <0.30 NG/ML Total Protein 6.6 6.4-8.2 G/DL Albumin 3.2 3.2-4.5 G/DL My Orders Orders - BARTOLO BROWER TREATING INSPECTOR Cbc With Automated Diff (12/22/16 17:11) Magnesium (12/22/16 17:11) Chest 1 View, Ap/Pa Only (12/22/16 17:11) Ekg Tracing (12/22/16 17:11) Cardiac Profile 1 (12/22/16 17:11) Comprehensive Metabolic Panel (12/22/16 17:11) Myoglobin Serum (12/22/16 17:11) Protime With Inr (12/22/16 17:11) Partial Thromboplastin Time (12/22/16 17:11) O2 (12/22/16 17:11) Monitor-Rhythm Ecg Trace Only (12/22/16 17:11) Lipid Panel (12/23/16 06:00) Aspirin Chewable Tablet (Baby Aspirin Ch (12/22/16 17:15) Saline Lock/Iv-Start (12/22/16 17:11) Blood Culture (12/22/16 17:11) Lactic Acid Analyzer (12/22/16 17:11) Albuterol/Ipra Inhalation Soln (Duoneb I (12/22/16 17:15) Svn Sm Volume Nebulizer Rt-Rfs (12/22/16 17:11) Albuterol Pre-Mix Nebs (Rt) (Proventil P (12/22/16 17:15) Methylprednisolone Sod Succ (Solu-Medrol (12/22/16 17:15) Albuterol/Ipra Inhalation Soln (Duoneb I (12/22/16 17:15) Svn Sm Volume Nebulizer Rt-Rfs (12/22/16 17:12) Albuterol Pre-Mix Nebs (Rt) (Proventil P (12/22/16 17:15) Manual Differential (12/22/16 17:40) Medications Given in ED Current Medications Medications Dose Ordered Sig/Ben Route Start Time Stop Time Status Last Admin Dose Admin Albuterol/ Ipratropium 3 ml ONCE ONCE INH 12/22/16 17:15 12/22/16 17:16 DC 12/22/16 17:14 3 ML Methylprednisolone Sodium Succinate 125 mg ONCE ONCE IVP 12/22/16 17:15 12/22/16 17:16 DC 12/22/16 17:55 125 MG Vital Signs/I&O Vital Sign - Last 12Hours 12/22/16 12/22/16 17:15 17:30 Temp 99.4 Pulse 77 Resp 20 B/P (MAP) 141/84 Pulse Ox 97 97 O2 Delivery Nasal Cannula Room Air O2 Flow Rate 2.00 Departure Communication Time/Spoke to Admitting Phy: 18:31 Communication Discussed the case with Dr. Lyn. We will admit the patient with IV steroids, Zithromax, breathing treatment Impression Impression: Primary Impression: COPD exacerbation Disposition: ADMITTED INPATIENT Condition: Stable Decision to Admit Reason: Admit from ER (General) Decision to Admit/Date: December 22, 2016 Departure-Patient Inst. Referrals: BRITTANY LYN MD (PCP/Family) Primary Care Physician BARTOLO BROWER APRN December 22, 2016 18:26
--- NOTE | 2016-12-22 19:35 | History & Physicial ---
History of Present Illness History of Present Illness Reason for visit/HPI PT IS A 61 Y/O MALE WHO IS KNOWN TO ME FROM CLINIC. HE PRESENTED TO THE OFFICE AND WAS SENT OVER TO THE HOSPITAL FOR BREATHING TREATMENT AND EKG. THE RESPIRATORY THERAPIST ENCOURAGED THE PATIENT TO GO TO THE EMERGENCY DEPARTMENT DUE TO HIS ACUTE SHORTNESS OF BREATH. HE WAS EVALUATED, DIAGNOSED WITH COPD EXACERBATION. BY THE TIME I EVALUATED GREAT IN THE HOSPITAL, HIS ACUTE DYSPNEA HAD IMPROVED. HE STATES THAT HE HAD SIGNIFICANT IMPROVEMENT AFTER HIS BREATHING TREATMENTS IN THE EMERGENCY DEPARTMENT. Date of Admission December 22, 2016 at 18:37 I consulted on this patient on 12/22/16 19:35 Attending Physician Brittany Lyn MD Admitting Physician Brittany Lyn MD Consult Allergies and Home Medications Allergies Coded Allergies: No Known Drug Allergies (Unverified , 03/08/13) Home Medications Albuterol Sulfate 18 Gm Hfa.aer.ad, 2 PUFF INH Q4H PRN for SHORTNESS OF BREATH, (Reported) Cholecalciferol (Vitamin D3) 2,000 Unit Capsule, 2,000 UNIT PO HS, (Reported) Desvenlafaxine Succinate 50 Mg Tab.sr.24h, 50 MG PO DAILY @ 1200, (Reported) Furosemide 40 Mg Tablet, 20 MG PO DAILY@0800,1200, (Reported) TAKES 1/2 OF A (40 MG) TABLET Glimepiride 4 Mg Tablet, 8 MG PO DAILY, (Reported) TAKES 2 (4 MG) TABLETS Ipratropium/Albuterol Sulfate 3 Ml Ampul.neb, 3 ML INH UD, #60 Ref 4 use three times daily x 4 days then one time daily thereafter and may use every 2 hours prn for acute shortness of breath Prescribed by: BRITTANY LYN on 08/20/16912 Lactobacillus Acidophilus 1 Each Capsule, 1 EACH PO TID, #21 Prescribed by: BRITTANY LYN on 08/20/16 0913 Melatonin/Pyridoxine HCl (B6) 1 Each Tab.mphase, 10 MG PO HS PRN for SLEEP, ( Reported) Mirtazapine 15 Mg Tablet, 15 MG PO HS, (Reported) Morphine Sulfate 15 Mg Tablet.er, 15 MG PO TID PRN for SEVERE PAIN, (Reported) Nitrofurantoin Monohyd/M-Cryst 100 Mg Capsule, 1 TAB PO BID, #14 Ref 0 Prescribed by: SIMBA GALICIA on 09/16/161922 Omeprazole 20 Mg Capsule.dr, 20 MG PO BID, (Reported) Potassium Chloride 20 Meq Tab.er.prt, 20 MEQ PO EVERY AFTERNOON, (Reported) Rifaximin 550 Mg Tablet, 550 MG PO BID, (Reported) Trazodone HCl 50 Mg Tablet, 50 MG PO HS, (Reported) Past Bspreml-Dpupwq-Zgzkkz Hx Patient Social History Marrital Status: Number of Children: 0 Living Status: LIVES AT HOME, SISTERS CHECK ON PT FREQUENTLY Employed/Student: unemployed Alcohol Use: Rarely Uses Recreational Drug Use: No Smoking Status: Current Everyday Smoker Type Used: Cigarettes 2nd Hand Smoke Exposure: No Physical Abuse Screen: No Sexual Abuse: No Recent Foreign Travel: No Contact w/other who traveled: No Recent Hopitalizations: Yes (OCTOBER 2016 AT ) Recent Infectious Disease Expo: No Immunizations Up To Date Tetanus Booster (TDap): Less than 5yrs Date of Pneumonia Vaccine: Jul 10, 2008 Date of Influenza Vaccine: Jun 24, 2016 Seasonal Allergies Seasonal Allergies: No Surgeries HX Surgeries: Yes (FACIAL AND HEAD RECONSTRUCTION SECONDARY TO TRAUMA PER PT; VENA CAVA FILTER,) Surgeries: Vascular Surgery Respiratory Hx Respiratory Disorders: Yes Respiratory Disorders: COPD Cardiovascular Hx Cardiovascular Disorders: No Neurological Hx Neurological Disorders: Yes (MEMORY LOSS) Reproductive System Hx Reproductive Disorders: No Sexually Transmitted Disease: No HIV/AIDS: No Genitourinary Hx Genitourinary Disorders: No Gastrointestinal Hx Gastrointestinal Disorders: Yes (HEAPTITIS C--CHRONIC LIVER FAILURE) Gastrointestinal Disorders: Gastroesophageal Reflux, Liver Disease/Jaundice, Esophageal Varices, Hepatitis, Cirrhosis Musculoskeletal Hx Musculoskeletal Disorders: Yes (CHRONIC NECK PAIN, LUMBAR COMPRESSION FRACTURE ) Musculoskeletal Disorders: Chronic Back Pain, Fractures Endocrine Hx Endocrine Disorders: Yes (INSULIN + ORAL MEDICATIONS) Endocrine Disorders: Diabetes, Insulin dep HEENT HX ENT Disorders: No Loss of Vision: Denies Hearing Impairment: Denies Cancer Hx Cancer: Yes Cancer: Liver Psychosocial Hx Psychiatric Problems: Yes Behavioral Health Disorders: Anxiety Integumentary HX Skin/Integumentary Disorder: No Blood Transfusions Hx Blood Disorders: No Adverse Reaction to a Blood Tr: No Reviewed Nursing Assessment Reviewed/Agree w Nursing PMH: Yes Family Medical History Significant Family History: No Pertinent Family Hx, Heart Disease, Hypertension Family Hx: Coronary thrombosis Myocardial infarction Constitutional: No chills, No dizziness, No fever, weakness EENTM: No hoarseness, No nose pain, No throat swelling Respiratory: cough, dyspnea on exertion, short of breath, wheezing Cardiovascular: No chest pain, edema, No palpitations Gastrointestinal: No abdominal pain, No constipation Genitourinary: no symptoms reported Musculoskeletal: back pain, other (PT HAS DAMAGED AND BLEEDING NAILS AND NAIL BEDS ON LEFT FOOT - (PT PULLED OFF/CUT OFF HIS NAIS TO THE QUICK)) Skin: other (SMALL PUNCTATE, SCABBED AREAS ON LOWER LEGS) Psychiatric/Neurological: Anxiety All Other Systems Reviewed Negative Unless Noted: Yes Physical Exam Vital Signs Vital Sign - Last 12Hours 12/22/16 12/22/16 17:15 17:30 Temp 99.4 Pulse 77 Resp 20 B/P (MAP) 141/84 Pulse Ox 97 O2 Delivery Nasal Cannula O2 Flow Rate 2.00 Capillary Refill : Less Than 3 Seconds General Appearance: No Apparent Distress, WD/WN Eyes: Bilateral Eye EOMI, Bilateral Eye Normal Inspection, Bilateral Eye PERRL HEENT: PERRL/EOMI, Pharynx Normal Neck: Full Range of Motion, Supple Respiratory: Chest Non Tender, Decreased Breath Sounds, Wheezing (FAINT) Cardiovascular: Regular Rate, Rhythm, No Edema, No Murmur, Normal Peripheral Pulses Gastrointestinal: Normal Bowel Sounds, Non Tender, Soft Rectal: Deferred Back: Normal Inspection, No Vertebral Tenderness Extremity: Normal Capillary Refill, Other (BLEEDING NAIL BEDS, CLEANSED, GREAT TOE WITH NAIL REMOVED DOWN TO BASE) Neurologic/Psychiatric: Alert, Oriented x3, No Motor/Sensory Deficits, Normal Mood/Affect Skin: Warm/Dry, Other (PUNCTATE LESIONS ON LOWER LEGS) Lymphatic: No Adenopathy Assessment/Plan Assessment and Plan COPD EXACERBATION CHRONIC PAIN SYNDROME SELF-INFLICTED WOUNDS ON TOES DIABETES MELLITUS INSOMNIA GERD HX OF HEPATIC CARCINOMA DUE TO HEPATITIS C COPD EXACERBATION- STEROIDS, MAT PROTOCOL, CONTINUE WITH SUPPORTIVE CARE. CHRONIC PAIN SYNDROME - RESTART HOME MEDICATIONS SELF-INFLICTED WOUNDS ON TOES - BACTROBAN - MONITOR TOES. DIABETES MELLITUS - MONITOR FSBS, RESTART MEDS IN MORNING. INSOMNIA - RESTART MIRTAZAPINE AND TRAZODONE. GERD - RESTART PPI HX OF HEPATIC CARCINOMA DUE TO HEPATITIS C Problems: Admission Diagnosis COPD EXACERBATION CHRONIC PAIN SYNDROME SELF-INFLICTED WOUNDS ON TOES DIABETES MELLITUS INSOMNIA GERD HX OF HEPATIC CARCINOMA DUE TO HEPATITIS C Clinical Quality Measures AMI/AHF: ASA po Prior to arrival: BRITTANY Whyte MD December 22, 2016 19:35
[2016-12-22] MEDS ORDERED: PATIENT MAY USE OWN MED,SINGLE MED PO SCH ×2 (19:45)
[2016-12-22 20:00] VITALS: BP 127/68
[2016-12-22] MEDS ORDERED: RT-ALBUTEROL/IPRATROPIUM 3 ML (DUONEB) VIAL INH PRN (20:45)
[2016-12-22] MEDS: RT-ALBUTEROL/IPRATROPIUM 3 ML (DUONEB) VIAL INH SCH (20:49)
[2016-12-22] MEDS: FAMOTIDINE 20 MG (PEPCID) TABLET PO SCH (21:52)
[2016-12-22] MEDS: MIRTAZAPINE 15 MG (REMERON) TAB PO SCH (21:52)
[2016-12-22] MEDS: morphine ER 15 MG (MS CONTIN) TAB PO SCH (21:52)
[2016-12-22] MEDS: MUPIROCIN 2% OINT 22 GM (BACTROBAN) TUBE NSEACH SCH (21:53)
[2016-12-22] MEDS: methylPREDNISolone 125 MG (Solu-MEDROL) VIAL IVP SCH (23:57)
[2016-12-23 00:52] VITALS: BP 119/67
[2016-12-23 04:21] VITALS: BP 123/74
[2016-12-23] MEDS: methylPREDNISolone 125 MG (Solu-MEDROL) VIAL IVP SCH ×4 (05:07→23:35)
[2016-12-23] MEDS: LACTOBACILLUS Acidoph/Bulgar (LACTINEX/FLORANEX) TAB PO SCH ×3 (05:07→18:39)
[2016-12-23] MEDS: morphine ER 15 MG (MS CONTIN) TAB PO SCH ×3 (05:07→21:04)
[2016-12-23 06:14] LABS: MEAN PLATELET VOLUME 11.1 FL (7.4-10.4); RED BLOOD COUNT 3.73 10^6/uL (4.35-5.85); WHITE BLOOD COUNT 4.9 10^3/uL (4.3-11.0)
[2016-12-23 06:34] LABS: ALANINE AMINOTRANSFERASE 21 U/L (0-55); ALBUMIN 3.1 G/DL (3.2-4.5); ANION GAP 6 MMOL/L (5-14); ASPARTATE AMINO TRANSFERASE 29 U/L (5-34); BILIRUBIN,TOTAL 2.2 MG/DL (0.1-1.0); BLOOD UREA NITROGEN 11 MG/DL (7-18); BUN/CREATININE RATIO 16; CALCIUM 8.5 MG/DL (8.5-10.1); CARBON DIOXIDE 25 MMOL/L (21-32); CHLORIDE 104 MMOL/L (98-107); CHOLESTEROL 152 MG/DL (< 200); CREATININE SERUM 0.67 MG/DL (0.60-1.30); DIRECT LDL 78 MG/DL (1-129); GFR ESTIMATED > 60; GLUCOSE 320 MG/DL (70-105); POTASSIUM 4.1 MMOL/L (3.6-5.0); SODIUM 135 MMOL/L (135-145); TOTAL PROTEIN 6.2 G/DL (6.4-8.2); TRIGLYCERIDES 64 MG/DL (<150); VLDL CHOLESTEROL 13 MG/DL (5-40)
[2016-12-23] MEDS: RT-ALBUTEROL/IPRATROPIUM 3 ML (DUONEB) VIAL INH SCH ×3 (07:30→20:03)
[2016-12-23 07:48] VITALS: BP 135/78
[2016-12-23] MEDS: MUPIROCIN 2% OINT 22 GM (BACTROBAN) TUBE NSEACH SCH ×2 (08:25→21:05)
[2016-12-23] MEDS: FAMOTIDINE 20 MG (PEPCID) TABLET PO SCH ×2 (08:25→21:04)
--- NOTE | 2016-12-23 09:34 | Progress Note (SOAP) ---
Subjective Subjective/Events-last exam PT WAS TAKING A SHOWER WHEN I WAS IN THE PATIENT ROOM, HE APPEARED SHORT OF BREATH, I HAD STAFF GET AN OXYGEN MONITOR - AND I WAS LISTENING TO HIS LUNGS HAVING HIM TAKE DEEP BREATHS, BY THE TIME THE STAFF CAME INTO THE ROOM I WAS DONE WITH MY PULMONARY EXAM AND HE HAD SOME TIME TO RECOVER AND HIS OXYGEN LEVEL WAS STILL ONLY 87% ON ROOM AIR, HE RECOVERED SLIGHTLY AND WAS PLACED ON OXGYEN AT 3 LITERS NC Review of Systems General: Fatigue Pulmonary: Dyspnea, Cough Neurological: Weakness Objective Exam Vital Signs Date Time Temp Pulse Resp B/P (MAP) Pulse Ox O2 Delivery O2 Flow Rate FiO2 12/23/16 07:48 99.5 69 20 135/78 95 12/23/16 07:30 92 12/23/16 04:21 97.8 65 16 123/74 93 12/23/16 00:52 97.6 69 18 119/67 94 12/22/16 20:49 93 12/22/16 20:39 93 12/22/16 20:00 98.9 80 20 127/68 96 12/22/16 19:33 99.3 79 20 95 12/22/16 17:30 99.4 77 20 141/84 97 Room Air 12/22/16 17:30 Room Air 12/22/16 17:15 97 Nasal Cannula 2.00 I & O 12/23/16 07:00 Intake Total 1150 ml Balance 1150 ml Capillary Refill : Less Than 3 Seconds General Appearance: No Apparent Distress, WD/WN HEENT: PERRL/EOMI, Pharynx Normal Neck: Full Range of Motion, Supple Respiratory: Chest Non Tender, Lungs Clear, Normal Breath Sounds Cardiovascular: Regular Rate, Rhythm Gastrointestinal: normal bowel sounds, non tender, soft, no organomegaly, no pulsatile mass Extremity: Normal Capillary Refill Neurologic/Psychiatric: Alert, Oriented x3 Lymphatic: No Adenopathy Results Lab Laboratory Tests 12/22/16 17:40: White Blood Count 9.9, Red Blood Count 4.21L, Hemoglobin 12.6L, Hematocrit 37L, Mean Corpuscular Volume 87, Mean Corpuscular Hemoglobin 30, Mean Corpuscular Hemoglobin Concent 35, Red Cell Distribution Width 17.1H, Platelet Count 67L, Mean Platelet Volume 10.2, Neutrophils (%) (Auto) 80H, Lymphocytes (%) (Auto) 6L , Monocytes (%) (Auto) 13H, Eosinophils (%) (Auto) 1, Basophils (%) (Auto) 0, Neutrophils # (Auto) 7.9H, Lymphocytes # (Auto) 0.6L, Monocytes # (Auto) 1.3H, Eosinophils # (Auto) 0.1, Basophils # (Auto) 0.0, Neutrophils % (Manual) 86, Lymphocytes % (Manual) 5, Monocytes % (Manual) 8, Eosinophils % (Manual) 1, Blood Morphology Comment NORMAL, Prothrombin Time 17.0H, INR Comment 1.4, Activated Partial Thromboplast Time 36H, Sodium Level 135, Potassium Level 3.6, Chloride Level 102, Carbon Dioxide Level 27, Anion Gap 6, Blood Urea Nitrogen 11 , Creatinine 0.65, Estimat Glomerular Filtration Rate > 60, BUN/Creatinine Ratio 17, Glucose Level 177H, Calcium Level 8.4L, Magnesium Level 1.7L, Total Bilirubin 3.8H, Aspartate Amino Transf (AST/SGOT) 42H, Alanine Aminotransferase (ALT/SGPT) 23, Alkaline Phosphatase 90, Myoglobin 73.4, Troponin I < 0.30, Total Protein 6.6, Albumin 3.2 12/22/16 18:42: Lactic Acid Level 2.10*H 12/22/16 20:50: Lactic Acid Level 2.22*H 12/23/16 05:58: White Blood Count 4.9, Red Blood Count 3.73L, Hemoglobin 10.8L, Hematocrit 32L, Mean Corpuscular Volume 87, Mean Corpuscular Hemoglobin 29, Mean Corpuscular Hemoglobin Concent 33, Red Cell Distribution Width 17.0H, Platelet Count 65L, Mean Platelet Volume 11.1H, Sodium Level 135, Potassium Level 4.1, Chloride Level 104, Carbon Dioxide Level 25, Anion Gap 6, Blood Urea Nitrogen 11, Creatinine 0.67, Estimat Glomerular Filtration Rate > 60, BUN/Creatinine Ratio 16, Glucose Level 320H, Calcium Level 8.5, Total Bilirubin 2.2H, Aspartate Amino Transf (AST/SGOT) 29, Alanine Aminotransferase (ALT/SGPT) 21, Alkaline Phosphatase 78, Total Protein 6.2L, Albumin 3.1L, Triglycerides Level 64, Cholesterol Level 152, LDL Cholesterol Direct 78, VLDL Cholesterol 13, HDL Cholesterol 53 Assessment/Plan Assessment/Plan Assess & Plan/Chief Complaint COPD EXACERBATION CHRONIC PAIN SYNDROME SELF-INFLICTED WOUNDS ON TOES DIABETES MELLITUS INSOMNIA GERD HX OF HEPATIC CARCINOMA DUE TO HEPATITIS C COPD EXACERBATION- STEROIDS, MAT PROTOCOL, CONTINUE WITH SUPPORTIVE CARE. CHRONIC PAIN SYNDROME - RESTART HOME MEDICATIONS SELF-INFLICTED WOUNDS ON TOES - BACTROBAN - MONITOR TOES. DIABETES MELLITUS - MONITOR FSBS, RESTART MEDS IN MORNING. INSOMNIA - RESTART MIRTAZAPINE AND TRAZODONE. GERD - RESTART PPI HX OF HEPATIC CARCINOMA DUE TO HEPATITIS C Clinical Quality Measures AMI/AHF: ASA po Prior to arrival: BRITTANY Whyte MD December 23, 2016 09:34
[2016-12-23] MEDS ORDERED: ALBU18HF2 IH (11:46)
[2016-12-23] MEDS ORDERED: RIFA550T PO (11:46)
[2016-12-23 12:00] VITALS: BP 121/75
[2016-12-23] MEDS: VENlafaxine XR 75 MG (EFFEXOR XR) CAP PO SCH (13:47)
[2016-12-23 16:30] VITALS: BP 148/77
[2016-12-23 19:55] VITALS: BP 138/67
[2016-12-23] MEDS: MIRTAZAPINE 15 MG (REMERON) TAB PO SCH (21:04)
[2016-12-24 00:20] VITALS: BP 124/66
[2016-12-24] MEDS: methylPREDNISolone 125 MG (Solu-MEDROL) VIAL IVP SCH ×2 (05:35→12:17)
[2016-12-24] MEDS: morphine ER 15 MG (MS CONTIN) TAB PO SCH ×2 (05:36→14:29)
[2016-12-24] MEDS: LACTOBACILLUS Acidoph/Bulgar (LACTINEX/FLORANEX) TAB PO SCH ×3 (05:36→16:48)
[2016-12-24] MEDS: RT-ALBUTEROL/IPRATROPIUM 3 ML (DUONEB) VIAL INH SCH ×2 (06:35→13:46)
[2016-12-24 08:00] VITALS: BP 131/76
--- NOTE | 2016-12-24 09:36 | Discharge Summary ---
Diagnosis/Chief Complaint Date of Admission December 22, 2016 at 18:37 Date of Discharge Discharge Date: December 24, 2016 Admission Diagnosis Admission Diagnosis COPD EXACERBATION CHRONIC PAIN SYNDROME SELF-INFLICTED WOUNDS ON TOES DIABETES MELLITUS INSOMNIA GERD HX OF HEPATIC CARCINOMA DUE TO HEPATITIS C Discharge Diagnosis COPD EXACERBATION CHRONIC PAIN SYNDROME OXYGEN DEPENDENCE SELF-INFLICTED WOUNDS ON TOES DIABETES MELLITUS INSOMNIA GERD HX OF HEPATIC CARCINOMA DUE TO HEPATITIS C ENCEPHALOPATHY DUE TO MEDICATION NONCOMPLIANCE Reason Hospital Visit PT IS A 61 Y/O MALE WHO IS KNOWN TO ME FROM CLINIC. HE PRESENTED TO THE OFFICE AND WAS SENT OVER TO THE HOSPITAL FOR BREATHING TREATMENT AND EKG. THE RESPIRATORY THERAPIST ENCOURAGED THE PATIENT TO GO TO THE EMERGENCY DEPARTMENT DUE TO HIS ACUTE SHORTNESS OF BREATH. HE WAS EVALUATED, DIAGNOSED WITH COPD EXACERBATION. BY THE TIME I EVALUATED GREAT IN THE HOSPITAL, HIS ACUTE DYSPNEA HAD IMPROVED. HE STATES THAT HE HAD SIGNIFICANT IMPROVEMENT AFTER HIS BREATHING TREATMENTS IN THE EMERGENCY DEPARTMENT. Discharge Summary Discharge Physical Examination Allergies: Coded Allergies: No Known Drug Allergies (Unverified , 03/08/13) Vitals & I&Os Vital Signs Date Time Temp Pulse Resp B/P (MAP) Pulse Ox O2 Delivery O2 Flow Rate FiO2 12/24/16 13:48 99 2.00 12/24/16 08:00 98.8 75 18 131/76 12/22/16 17:30 Room Air General Appearance: Alert, Oriented X3, Cooperative HEENT: Atraumatic, PERRLA Respiratory: Other (POOR AIR MOVEMENT IN BASES AND WHEEZING MID-LUNG) Cardiovascular: Regular Rate Abdominal: Normal Bowel Sounds, Soft, No Tenderness Extremities: No Clubbing Skin: Other (LESIONS ON TOES OF LEFT FOOT FROM PT PULLING OFF OR CUTTING TOENAILS TO THE QUICK) Neuro: Cranial Nerves 3-12 NL, Other (WIDE GAIT) Psych/Mental Status: Mental Status NL, Mood NL Hospital Course COPD EXACERBATION CHRONIC PAIN SYNDROME SELF-INFLICTED WOUNDS ON TOES DIABETES MELLITUS INSOMNIA GERD HX OF HEPATIC CARCINOMA DUE TO HEPATITIS C COPD EXACERBATION- STEROIDS, MAT PROTOCOL, CONTINUE WITH SUPPORTIVE CARE. CHRONIC PAIN SYNDROME - RESTART HOME MEDICATIONS SELF-INFLICTED WOUNDS ON TOES - BACTROBAN - MONITOR TOES. DIABETES MELLITUS - MONITOR FSBS, RESTART MEDS IN MORNING. INSOMNIA - RESTART MIRTAZAPINE AND TRAZODONE. GERD - RESTART PPI HX OF HEPATIC CARCINOMA DUE TO HEPATITIS C OXYGEN DEPENDENCE - PT NOW REQUIRING OXYGEN WHEN ACTIVE/AMBULATING AND AT NIGHT - HE NEEDS TO WEAR OXYGEN CONTINUOUSLY AT 3 LITERS NC WITH HUMIDIFICATION. PT HAS BEEN NONCOMPLIANT WITH THE USE OF HIS LACTULOSE AND HAS MILD HEPATIC ENCEPHALOPATHY. RESTART LACTULOSE IN THE HOSPITAL AND THEN THE LACTULOSE NEEDS TO BE CONTINUED AT HOME. PATIENT WILL BE DISCHARGED TO THE [facility] FOR THERAPY AND MEDICATION MONITORING WELL PATIENT TRAINING ON OXYGEN USAGE AND STRENGTHENING. Discharge Condition at discharge IMPROVED Instructions to patient/family Please see electonic discharge instructions given to patient. Discharge Medications Reviewed and agree with Discharge Medication list on patient's Discharge Instruction sheet Clinical Quality Measures AMI/AHF: ASA po Prior to arrival: BRITTANY Whyte MD December 24, 2016 09:36
[2016-12-24] MEDS ORDERED: MORP-33 PO (09:39)
[2016-12-24] MEDS ORDERED: MIRT15TA6 PO (09:39)
[2016-12-24] MEDS ORDERED: LACT10SO PO (09:39)
--- NOTE | 2016-12-24 09:41 | Discharge Inst-Complex ---
PDI Med Rec & Follow Up Appt. New Medications: Lactulose (Lactulose) 10 Gm/15 Ml Solution 10 GM PO DAILY, #450 ML Continued Medications: Albuterol Sulfate (Ventolin Hfa) 18 Gm Hfa.aer.ad 2 PUFF IH Q4H PRN for SHORTNESS OF BREATH Cholecalciferol (Vitamin D3) (Vitamin D3) 2,000 Unit Capsule 2000 UNIT PO HS Desvenlafaxine Succinate (Pristiq) 50 Mg Tab.sr.24h 50 MG PO DAILY @ 1200 Furosemide (Furosemide) 40 Mg Tablet 20 MG PO DAILY@0800,1200 TAKES 1/2 OF A (40 MG) TABLET Glimepiride (Glimepiride) 4 Mg Tablet 8 MG PO DAILY TAKES 2 (4 MG) TABLETS Melatonin/Pyridoxine HCl (B6) (Melatonin 10 mg Tablet) 1 Each Tab.mphase 10 MG PO HS PRN for SLEEP, MG ALTERNATES WITH TRAZODONE Mirtazapine (Mirtazapine) 15 Mg Tablet 15 MG PO HS for 30 Days, #30 TAB (This prescription has been renewed) Morphine Sulfate (Morphine Sulfate ER) 15 Mg Tablet.er 15 MG PO TID PRN for SEVERE PAIN, #90 (This prescription has been renewed) Omeprazole (Omeprazole) 20 Mg Capsule.dr 20 MG PO BID Potassium Chloride (Potassium Chloride) 20 Meq Tab.er.prt 20 MEQ PO DAILY Rifaximin (Xifaxan) 550 Mg Tablet 550 MG PO BID Trazodone HCl (Trazodone HCl) 50 Mg Tablet 50 MG PO HS PRN for SLEEP ALTERNATES WITH MELATONIN Prescription: Transmitted to Pharmacy Activity, Diet and PDI Resume Normal Activity: Yes Discharge Diet: ADA Diet Diet for 24 Hours: No Alcohol Drink 6-8 Glasses of Fluid/Day: Yes Driving Instructions: No Driving/Refer to Symptoms to Reoprt to : Appetite Changes, Pain/Pressure in Chest, Shortness of Breath For Problems or Questions: Contact Your Physician BRITTANY RIOS MD December 24, 2016 09:41
[2016-12-24] MEDS ORDERED: LACTULOSE SYRUP 10GM/15ML (ENULOSE) 30ML UDC PO NR (09:45)
[2016-12-24] MEDS: FAMOTIDINE 20 MG (PEPCID) TABLET PO SCH (10:31)
[2016-12-24] MEDS: MUPIROCIN 2% OINT 22 GM (BACTROBAN) TUBE NSEACH SCH (10:31)
[2016-12-24] MEDS: VENlafaxine XR 75 MG (EFFEXOR XR) CAP PO SCH (12:21)
[2016-12-24 16:30] VITALS: BP 126/72
[2016-12-24 17:00] VITALS: BP 126/72
[2016-12-24] MEDS ORDERED: LACTULOSE SYRUP 10GM/15ML (ENULOSE) 30ML UDC PO SCH (21:00)
[2016-12-26] MEDS ORDERED: MORP-33 PO (16:26)
[2016-12-26] MEDS ORDERED: FURO20TA4 PO (16:26)
[2016-12-26] MEDS ORDERED: LORA1TAB PO (16:26)
[2016-12-26] MEDS ORDERED: MIRT15TA6 PO (16:26)
[2016-12-26] MEDS ORDERED: LACT10SO63 PO (16:26)
== END 2016-12-24 09:40 ==
LOC: EDUNIT# 17:08 → ER 17:09 → INTOOBSV 18:37 → 4TH 18:37 → ENPENDDIS 12-24 12:00
PROVIDERS: ADMIT Family Medicine; ATTEND Family Medicine
DX: J44.1 Chronic obstructive pulmonary disease with (acute) exacerbation (principal); G89.4 Chronic pain syndrome; K72.90 Hepatic failure, unspecified without coma; B19.20 Unspecified viral hepatitis C without hepatic coma; K74.60 Unspecified cirrhosis of liver; E11.9 Type 2 diabetes mellitus without complications; M54.9 Dorsalgia, unspecified; S91.102A Unspecified open wound of left great toe without damage to nail, initial encounter; S91.105A Unspecified open wound of left lesser toe(s) without damage to nail, initial encounter; G47.00 Insomnia, unspecified; K21.9 Gastro-esophageal reflux disease without esophagitis; Z99.81 Dependence on supplemental oxygen; Z91.14 Patient's other noncompliance with medication regimen; Z85.05 Personal history of malignant neoplasm of liver; Z79.84 Long term (current) use of oral hypoglycemic drugs; X83.8XXA Intentional self-harm by other specified means, initial encounter
CPT/HCPCS: 36415; 71010; 80053; 80061; 83605; 83735; 83874; 84484; 85007; 85027; 85610; 85730; 87040; 93041; 94640; 94664; 94760; 94761; 96374; G0378

== ENCOUNTER → 2016-12-22 | Outpatient (CLI) | payer MEDICARE, MEDICAID ==
[~2016-12-22] MED LIST changes: +ALBU18HF2 IH; -CATHETER FLUSH 10 ML SYR IV PRN; -IOHEXOL 350 MG/ML 100 ML (OMNIPAQUE 350) VIAL IV ONE; +LACT10SO PO; -NS 100 ML (IVPB) BAG IV ONE
== END ==
LOC: CARD 16:34
PROVIDERS: ATTEND Nurse Practitioner Family
DX: R07.9 Chest pain, unspecified (principal); R06.00 Dyspnea, unspecified; R05 Cough

== ENCOUNTER 2017-01-02 09:20 | Inpatient (IN) | payer MEDICARE, MEDICAID ==
[~2017-01-02] VITALS: Ht 182.9 cm; Wt 109.8 kg
[~2017-01-02 09:20] MED LIST changes: +ALBU18HF2 IH; +FURO20TA4 PO; +LACT10SO PO; +LACT10SO63 PO; +LORA1TAB PO
[2017-01-02] MEDS ORDERED: VANCOMYCIN INJECTION 1,750 MG in NS IV 500 ML 500 ML IV SCH (10:45)
[2017-01-02] MEDS ORDERED: RT-ALBUTEROL/IPRATROPIUM 3 ML (DUONEB) VIAL INH PRN (10:45)
[2017-01-02] MEDS ORDERED: CATHETER FLUSH 10 ML SYR IV PRN (10:45)
--- NOTE | 2017-01-02 10:45 | History & Physicial ---
History of Present Illness History of Present Illness Reason for visit/HPI PT IS A 61 Y/O MALE WHO IS KNOWN TO ME FROM CLINIC. HE HAS HISTORY OF HEPATITIS C, HISTORY OF HEPATOCELLUAR CARCINOMA. 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 MELITON IS CONFUSED, INTERMITTENT DELIRIUM, AND AT THIS TIME HE IS FEELING WEAK AND INTERMITTENTLY CONFUSED BUT HAS PERIODS OF CLEARING OF HIS SENSORIUM WHEN DIRECTLY QUESTIONED THIS MORNING, CORDELIA WAS ABLE TO STATE THAT HE WAS AT [facility]. Date of Admission I consulted on this patient on 01/02/17 10:45 Attending Physician Ayesha Lyn MD Admitting Physician Ayesha Lyn MD Consult Allergies and Home Medications Allergies Coded Allergies: midazolam (Verified Adverse Reaction, Unknown, 12/27/16) BEHAVORIAL Home Medications Albuterol Sulfate 18 Gm Hfa.aer.ad, 2 PUFF IH Q6H PRN for SHORTNESS OF BREATH, ( Reported) Cholecalciferol (Vitamin D3) 2,000 Unit Capsule, 2,000 UNIT PO HS, (Reported) Desvenlafaxine Succinate 50 Mg Tab.sr.24h, 50 MG PO DAILY @ 1200, (Reported) Furosemide 20 Mg Tablet, 20 MG PO DAILY, (Reported) Glimepiride 4 Mg Tablet, 8 MG PO DAILY, (Reported) TAKES 2 (4 MG) TABLETS Lactulose 10 Gm/15 Ml Solution, 15 ML PO BID, (Reported) Lorazepam 1 Mg Tablet, 1 MG PO Q6H PRN for ANXIETY, (Reported) Melatonin/Pyridoxine HCl (B6) 1 Each Tab.mphase, 10 MG PO HS PRN for SLEEP, ( Reported) ALTERNATES WITH TRAZODONE Mirtazapine 15 Mg Tablet, 15 MG PO HS, (Reported) Morphine Sulfate 15 Mg Tablet.er, 15 MG PO Q8H PRN for PAIN-SEVERE, (Reported) Omeprazole 20 Mg Capsule.dr, 20 MG PO BID, (Reported) Potassium Chloride 20 Meq Tab.er.prt, 20 MEQ PO DAILY, (Reported) Rifaximin 550 Mg Tablet, 550 MG PO BID, (Reported) Trazodone HCl 50 Mg Tablet, 50 MG PO HS PRN for SLEEP, (Reported) ALTERNATES WITH MELATONIN Past Tsictym-Ebnbqs-Fpucfj Hx Patient Social History Marrital Status: Living Status: LIVES IN APARTMENT IN [place], SISTERS VISIT DAILY Employed/Student: unemployed Alcohol Use: Occasionally Uses Smoking Status: Current Someday Smoker Type Used: Cigarettes 2nd Hand Smoke Exposure: No Physical Abuse Screen: No Sexual Abuse: No Recent Foreign Travel: No Contact w/other who traveled: No Recent Hopitalizations: Yes (OCTOBER 2016 AT ) Recent Infectious Disease Expo: Yes Immunizations Up To Date Tetanus Booster (TDap): Less than 5yrs Date of Pneumonia Vaccine: Jul 10, 2008 Date of Influenza Vaccine: Jun 24, 2016 Seasonal Allergies Seasonal Allergies: No Surgeries HX Surgeries: Yes (FACIAL AND HEAD RECONSTRUCTION SECONDARY TO TRAUMA PER PT; VENA CAVA FILTER,) Surgeries: Vascular Surgery Respiratory Hx Respiratory Disorders: Yes Respiratory Disorders: COPD Cardiovascular Hx Cardiovascular Disorders: Yes Cardiac Disorders: Hypertension Neurological Hx Neurological Disorders: Yes (MEMORY LOSS) Reproductive System Hx Reproductive Disorders: No Sexually Transmitted Disease: No HIV/AIDS: No Genitourinary Hx Genitourinary Disorders: No Gastrointestinal Hx Gastrointestinal Disorders: Yes (HEAPTITIS C--CHRONIC LIVER FAILURE) Gastrointestinal Disorders: Gastroesophageal Reflux, Liver Disease/Jaundice, Esophageal Varices, Hepatitis, Cirrhosis Musculoskeletal Hx Musculoskeletal Disorders: Yes (CHRONIC NECK PAIN, LUMBAR COMPRESSION FRACTURE ) Musculoskeletal Disorders: Chronic Back Pain, Fractures Endocrine Hx Endocrine Disorders: Yes (INSULIN + ORAL MEDICATIONS) Endocrine Disorders: Diabetes, Insulin dep HEENT HX ENT Disorders: No Loss of Vision: Denies Hearing Impairment: Denies Cancer Hx Cancer: Yes Cancer: Liver Psychosocial Hx Psychiatric Problems: Yes Behavioral Health Disorders: Anxiety Integumentary HX Skin/Integumentary Disorder: No Blood Transfusions Hx Blood Disorders: No Adverse Reaction to a Blood Tr: No Reviewed Nursing Assessment Reviewed/Agree w Nursing PMH: Yes Family Medical History Significant Family History: Heart Disease, Hypertension Family Hx: Coronary thrombosis Myocardial infarction Constitutional: No fever, malaise, weakness EENTM: No blurred vision, No hoarseness, No throat pain Respiratory: No cough, No dyspnea on exertion, No short of breath Cardiovascular: No chest pain, edema, No palpitations Gastrointestinal: No abdominal pain, No loss of appetite, No nausea, No vomiting Genitourinary: incontinence Musculoskeletal: muscle weakness Skin: no symptoms reported Psychiatric/Neurological: Depressed, Other (CONFUSION/DELIRIUM) All Other Systems Reviewed Negative Unless Noted: Yes Physical Exam Vital Signs Vital Sign - Last 12Hours 01/02/17 10:05 Pulse Ox 98 O2 Flow Rate 4.00 Capillary Refill : General Appearance: No Apparent Distress, WD/WN Eyes: Bilateral Eye EOMI, Bilateral Eye Normal Inspection, Bilateral Eye PERRL HEENT: PERRL/EOMI, Pharynx Normal Neck: Full Range of Motion, Supple Respiratory: Chest Non Tender, Lungs Clear, Normal Breath Sounds, No Accessory Muscle Use Cardiovascular: Regular Rate, Rhythm Gastrointestinal: Normal Bowel Sounds, No Organomegaly, No Pulsatile Mass, Non Tender, Soft Rectal: Deferred Extremity: Normal Capillary Refill, Non Tender, No Calf Tenderness, Pedal Edema Neurologic/Psychiatric: Alert, Depressed Affect, Other (INTERMITTENT CONFUSION) Skin: Normal Color, Warm/Dry Lymphatic: No Adenopathy Assessment/Plan Assessment and Plan HAEMOPHILUS INFLUENZAE SEPSIS NEISSERIA MENINGITIDIS PNEUMONIA HX OF HEPATOCELLULAR CARCINOMA HX OF HEPATITIS C ESOPHAGEAL VARICES WITH TIPS IN PLACE COPD HYPOKALEMIA THROMBOCYTOPENIA 10 KILOGRAM FLUID GAIN ANEMIA PNEUMONIA AND SEPSIS - CONTINUE WITH CURRENT ANTIBIOTICS, UNABLE TO DO LUMBAR PUNCTURE DUE TO HIS LOW PLATELET COUNT, CONTINUE WITH SUPPORTIVE CARE, CONTACT PRECAUTIONS TO BE REMOVED REPEAT CULTURE CAME BACK NEGATIVE - STOPPED LEVAQUIN, CONTINUE WITH CEFEPIME AND VANCOMYCIN UNTIL THURSDAY EVENING. ESOPHAGEAL VARICES WITH TIPS - ABDOMINAL ULTRASOUND REVEALED THAT HIS TIPS IS PATENT COPD - CHRONIC - CONTINUE WITH OXYGEN FOR SUPPORTIVE CARE. HYPOKALEMIA - PT ON REPLACEMENT PROTOCOL PT WITH SIGNIFICANT PERSISTENT EDEMA UP TO ABDOMEN - GIVE 40MG LASIX THIS MORNING. - MONITOR OUTPUT ANEMIA - SUPPORTIVE CARE. PT HAD ANGELES IN PLACE, IT WAS ORDERED TO BE REMOVED BY ONE OF THE CONSULTING PHYSICIANS - THE PATIENT CONTINUES TO NEED A CATHETER I HAVE RESTARTED A ANGELES CATHETER - NEEDS TO REMAIN UNTIL PATIENT'S SENSORIUM CLEARS STOPPED REGLAN, MIRTAZAPINE, GLIMEPIRIDE MONITOR SYMPTOMS OF CONFUSION. Problems: Admission Diagnosis HAEMOPHILUS INFLUENZAE SEPSIS NEISSERIA MENINGITIDIS PNEUMONIA HX OF HEPATOCELLULAR CARCINOMA HX OF HEPATITIS C ESOPHAGEAL VARICES WITH TIPS IN PLACE COPD HYPOKALEMIA THROMBOCYTOPENIA 10 KILOGRAM FLUID GAIN ANEMIA PNEUMONIA AND SEPSIS - CONTINUE WITH CURRENT ANTIBIOTICS, UNABLE TO DO LUMBAR PUNCTURE DUE TO HIS LOW PLATELET COUNT, CONTINUE WITH SUPPORTIVE CARE, CONTACT PRECAUTIONS TO BE REMOVED REPEAT CULTURE CAME BACK NEGATIVE - STOP LEVAQUIN , CONTINUE WITH CEFEPIME AND VANCOMYCIN UNTIL THURSDAY EVENING. ESOPHAGEAL VARICES WITH TIPS - ABDOMINAL ULTRASOUND REVEALED THAT HIS TIPS IS PATENT COPD - CHRONIC - CONTINUE WITH OXYGEN FOR SUPPORTIVE CARE. HYPOKALEMIA - PT ON REPLACEMENT PROTOCOL PT WITH SIGNIFICANT PERSISTENT EDEMA UP TO ABDOMEN - GIVE 40MG LASIX THIS MORNING. - MONITOR OUTPUT ANEMIA - SUPPORTIVE CARE. PT HAD ANGELES IN PLACE, IT WAS ORDERED TO BE REMOVED BY ONE OF THE CONSULTING PHYSICIANS - THE PATIENT CONTINUES TO NEED A CATHETER I HAVE RESTARTED A ANGELES CATHETER - NEEDS TO REMAIN UNTIL PATIENT'S SENSORIUM CLEARS STOPPED REGLAN, MIRTAZAPINE, GLIMEPIRIDE MONITOR SYMPTOMS OF CONFUSION. Clinical Quality Measures DVT/VTE Risk/Contraindication: Contraindications-Pharm: Other *list below* AYESHA LYN MD January 02, 2017 10:45
[2017-01-02] MEDS: VENlafaxine XR 75 MG (EFFEXOR XR) CAP PO SCH (12:32)
[2017-01-02] MEDS: RT-ALBUTEROL/IPRATROPIUM 3 ML (DUONEB) VIAL INH SCH ×3 (14:14→22:03)
[2017-01-02] MEDS: inSUlin ASPART (NovoLOG) 1 UNIT/0.01 ML (CHARGE PER UNIT) SC SCH ×2 (14:30→21:22)
--- NOTE | 2017-01-02 15:34 | Physical Therapy Evaluation ---
PT Evaluation-General Medical Diagnosis Admission Date January 02, 2017 at 10:03 Medical Diagnosis: hepatic encephalopathy, weakness, confusion, pneumonia Onset Date: December 26, 2016 Therapy Diagnosis Therapy Diagnosis: impaired mobility, balance, endurance, confusion Height/Weight Height (Feet): 6 Height (Inches): 0.00 Weight (Pounds): 242 Weight (Ounces): 0.0 Precautions Precautions/Isolations: Chemo Precautions, Standard Precautions Referral Physician: Ayesha Lyn MD Reason for Referral: Evaluation/Treatment Medical History Pertinent Medical History: COPD, DM, GERD, HTN, Smoking Additional Medical History hepatitis C, hepatocellular carcinoma, memory loss, chronic liver failure, jaundice, esophageal varices, cirrhosis, chronic neck pain, lumbar compression fx, anxiety, surg (facial and head reconstruction due to trauma, vena cava filter) Current History went to ER with COPD exacerbation and confusion Reviewed History: Yes Social History Patient is a poor historian. According to him he may have steps to enter his home and he says his sister lives with him. Prior/Core FIM Prior Level of Function Functional Atkins Measure 0=Not Assessed/NA 4=Minimal Assistance 1=Total Assistance 5=Supervision or Setup 2=Maximal Assistance 6=Modified Atkins 3=Moderate Assistance 7=Complete Atkins Bed Mobility: 7 Transfers (B,C,W/C) (FIM): 7 Gait: 7 Patient states he had not been using a walker or cane. PT Evaluation-Current Subjective Patient in bed pre tx, agrees to PT, states he has neck pain of 6/10. Patient is very confused but cooperative. Pt/Family Goals none stated Objective Patient Orientation: Person, Place Attachments: Oxygen 3L of O2 nasal canula ROM/Strength ROM Lower Extremities WNL Strenght Lower Extremities 4/5 gross bilateral lower extremities, patient had some trouble following directions in order to test strength Integumentary/Posture Integumentary swelling bilateral lower extremities Bladder Incontinence: Cárdenas Cath Neuromuscular (Tone, Coordination, Reflexes) poor coordination in lower extremities when standing and during ambulation Sensory Vision: Functional Hearing: Functional Sensation Right Lower Extremit: Intact Sensation Left Lower Extremity: Intact Transfers Functional Atkins Measure 0=Not Assessed/NA 4=Minimal Assistance 1=Total Assistance 5=Supervision or Setup 2=Maximal Assistance 6=Modified Atkins 3=Moderate Assistance 7=Complete Atkins Transfers (B, C, W/C) (FIM): 4 Scootin Rollin Supine to/from Sit: 4 Sit to/from Stand: 4 Sit to Lying (QC): 3 Lying to Sitting/Side of Bed(Q: 3 Sit to Stand (QC): 3 Patient needs min assist getting a leg into and out of bed and min assist to stand. Cues for safety and hand placement. Patient is very confused and seems to be hallucinating, impulsive, constant redirection. Gait Does the Patient Walk?: Yes Mode of Locomotion: Walk Anticipated Mode of Locomotion: Walk Gait (FIM): 1 Distance: 60' Walk 50 ft with 2 Turns(QC): 3 Walk 150 ft (QC): 88 Gait Level of Assist: 4 Gait Persons Needed: 2 Gait Assistive Device: FWW Comments/Gait Description Patient can ambulate 60' with a rolling walker with min assist of 2. He is very confused and needs physical assist turning the walker and will actually let go, seems to be hallucinating, impulsive, constant redirection. Balance Sitting Static: Normal Sitting Dynamic: Normal Standing Static: Poor Standing Dynamic: Poor Assessment/Needs Patient has impaired mobility, strength, balance, coordination, endurance. He is a high fall risk and is very confused, poor safety. 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 Flanging Machine Operator Goals PT Nursing Home Goals Time Frame: Jan 09, 2017 Transfers (B,C,W/C) (FIM): 5 Sit to Lying (QC): 4 Lying-Sitting on Side/Bed(QC): 4 Sit to Stand (QC): 4 Rollin Gait (FIM): 4 Distance: 150' Walk 50ft with 2 Turns (QC): 4 Walk 150 ft (QC): 4 Gait Level of Assist: 4 (CGA) Gait Assistive Device: FWW PT Plan Problem List Problem List: Activity Tolerance, Functional Strength, Safety, Balance, Gait, Transfer, Bed Mobility Treatment/Plan Treatment Plan: Continue Plan of Care Treatment Plan: Bed Mobility, Education, Functional Activity Court, Functional Strength, Gait, Safety, Therapeutic Exercise, Transfers Treatment Duration: Jan 09, 2017 # of days/week 5-6 Visits Per Week: 5-6 Minutes/Day (M-F): 15-30 Minutes/Day (Sat/Chan): 15-30 Pt/Family Agrees w/Plan: Yes Safety Risks/Education Patient Education: Gait Training, Transfer Techniques, Correct Positioning, Safety Issues Teaching Recipient: Patient Teaching Methods: Demonstration, Discussion Response to Teaching: Reinforcement Needed Discharge Recommendations Plan Patient will perform bed mobility and transfer training, balance and endurance training, functional strengthening, stair training, gait training, and education , to improve functional mobility and independence at home. Therapy D/C Recommendations: Home w/ Family Support, Half-Way (TCU/NH) Time/GCodes Time In: 1450 Time Out: 1520 Total Billed Treatment Time: 30 Total Billed Treatment 1 visit EVL 15' GT 15' BRYON MILLS PT January 02, 2017 15:34
--- NOTE | 2017-01-02 15:55 | Occupational Therapy Eval ---
OT Evaluation-General/PLF Medical Diagnosis Admission Date January 02, 2017 at 10:03 Medical Diagnosis: hepatic encephalopathy, weakness, confusion, pneumonia Onset Date: December 26, 2016 Therapy Diagnosis Therapy Diagnosis: impaired self care skills Height/Weight Height (Feet): 6 Height (Inches): 0.00 Weight (Pounds): 242 Weight (Ounces): 0.0 Precautions Precautions/Isolations: Chemo Precautions, Standard Precautions Safety Interventions: Bed Exit Alarm Referral Physician: Ayesha Lyn MD Medical History Pertinent Medical History: COPD, DM, GERD, HTN, Smoking Additional Medical History hepatitis C, hepatocellular carcinoma, memory loss, chronic liver failure, jaundice, esophageal varices, cirrhosis, chronic neck pain, lumbar compression fx, anxiety, surg (facial and head reconstruction due to trauma, vena cava filter) Reviewed History: Yes ADL-Prior Level of Function ADL PLOF Comments Pt is a poor historian and has difficulty providing information regarding home situation. Pt states he lives alone and was independent prior to admission. OT Current Status Subjective Pt in bed, agreeable to therapy. Pt is confused, but pleasant throughout treatment. Pt reports back pain, but does not rate. Mental Status/Objective Patient Orientation: Person, Confused Attachments: Cárdenas Catheter, Oxygen Current Glasses/Contacts: Yes Hearing Aids: No Dentures/Partials: Yes Hand Dominance: Right Upper Extremity ROM Grossly WFL- Pt has difficulty following commands for UE assessment. Upper Extremity Coordination Decreased Upper Extremity Strength Pt unable to follow commands for formal MMT. Appears to have decreased bilateral UE strength ADL-Treatment ADL-Current Pt supine to sit with minimal assistance. Pt sat EOB during UE assessment. Pt has decreased sitting balance during UE activity, requires cues to correct. Pt washed face with washcloth with set up. Pt is impulsive and requires cues for safety. Pt able to scoot to HOB while seated EOB. Performs sit to supine with minimal assistance for LE. Pt requires assist for positioning in bed. Assist required to scoot to HOB. Pt has difficulty following instructions for mobility tasks. Pt in bed with needs met, bed alarm on, and telesitter present after session. Functional Sparta Measure 0=Not Assessed/NA 4=Minimal Assistance 1=Total Assistance 5=Supervision or Setup 2=Maximal Assistance 6=Modified [place] 3=Moderate Assistance 7=Complete IndependenceIRFPAI Quality Coding Scale 6 Independent with activity with or without an assistive device 5 Patient requires set up or clean up by helper. Patient completes activity by themselves 4 Supervision or touching assist (CGA). Luther provide cues , steadying assist 3 The helper provides less than half the effort to complete the activity 2 The helper provides more than half the effort to complete the activity 1 Dependent. The helper does all the effort to complete an activity 7 Patient refused to complete or attempt activity 9 The patient did not perform the activity before the current illness or injury 88 Not attempted due to Medical conditions or safety concerns Grooming (FIM): 5 (to wash face) Oral Hygiene (QC): 5 Education OT Patient Education: Rehab process Teaching Recipient: Patient Teaching Methods: Discussion Response to Teaching: Unable to Comprehend OT Short Term Goals Short Term Goals 1=Demonstrate adherence to instructed precautions during ADL tasks. 2=Patient will verbalize/demonstrate understanding of assistive devices/ modifications for ADL. 3=Patient will improve strength/tolerance for activity to enable patient to perform ADL's. OT Dental Receptionist Goals [facility] Goals Time Frame: Jan 23, 2017 Eating (FIM): 6 Eating (QC): 6 Groomin Oral Hygiene (QC): 6 Upper Body Dressing(FIM): 5 Lower Body Dressing(FIM): 4 Toileting(FIM): 5 Toileting Hygiene (QC): 5 Toilet/Commode Transfer(FIM): 5 Toilet/Commode Transfer (QC): 5 Additional Goals: 1-Demonstrate ADL Tasks, 2-Verbalize Understanding, 3- ImproveStrength/Court 1=Demonstrate adherence to instructed precautions during ADL tasks. 2=Patient will verbalize/demonstrate understanding of assistive devices/ modifications for ADL. 3=Patient will improve strength/tolerance for activity to enable patient to perform ADL's. OT Education/Plan Problem List/Assessment Assessment: Decreased Activ Tolerance, Decreased Safety Aware, Decreased UE Strength, Dependent Transfers, Impaired Coordination, Impaired Funct Balance, Impaired I ADL's, Impaired Self-Care Skills Pt to benefit from skilled OT intervention for ADL training, transfers, strengthening, and safety education to maximize level of function and allow safe discharge plan. Discharge Recommendations Plan/Recommendations: Continue POC Treatment Plan/Plan of Care Treatment,Training & Education: Yes Patient would benefit from OT for education, treatment and training to promote independence in ADL's, mobility, safety and/or upper extremity function for ADL' s. Plan of Care: ADL Retraining, Functional Mobility, UE Funct Exercise/Act Treatment Duration: Jan 23, 2017 # of days/week 5 Visits Per Week: 5 Agreement: Yes Rehab Potential: Poor Time/GCodes Start Time: 15:20 Stop Time: 15:43 Total Time Billed (hr/min): 23 Billed Treatment Time 1 visit, EVM(8minutes), FA(15minutes) JOHNNY NGUYEN OT January 02, 2017 15:55
[2017-01-02] MEDS: cefTRIAXone INJECTION 2,000 MG in NS (IVPB) 50 ML IV SCH (16:18)
[2017-01-02] MEDS: PANTOPRAZOLE 20 MG TABLET (PROTONIX) PO SCH (16:18)
[2017-01-02] MEDS: morphine ER 15 MG (MS CONTIN) TAB PO PRN (16:18)
[2017-01-02 18:08] VITALS: BP 136/62
[2017-01-02] MEDS: VANCOMYCIN INJECTION 1,750 MG in NS IV 500 ML 500 ML IV SCH (21:49)
[2017-01-02] MEDS: VITAMIN D3 1,000 UNITS (CHOLECALCIFEROL) TABLET PO SCH (21:49)
[2017-01-02] MEDS: RIFAXIMIN 550 MG TABLET (XIFAXAN) PO SCH (21:49)
[2017-01-02] MEDS: LACTULOSE SYRUP 10GM/15ML (ENULOSE) 30ML UDC PO SCH (21:49)
[2017-01-02] MEDS: LORazepam 1 MG (ATIVAN) TAB PO PRN (22:38)
[2017-01-03] MEDS: HALOPERIDOL 5 MG/ML (HALDOL) AMP IM/IV PRN ×2 (00:06→11:12)
[2017-01-03] MEDS: RT-ALBUTEROL/IPRATROPIUM 3 ML (DUONEB) VIAL INH SCH ×6 (02:06→22:14)
[2017-01-03] MEDS: cefTRIAXone INJECTION 2,000 MG in NS (IVPB) 50 ML IV SCH ×2 (03:42→16:02)
[2017-01-03 06:00] VITALS: BP 140/70
[2017-01-03 06:19] LABS: MEAN PLATELET VOLUME 11.4 FL (7.4-10.4); RED BLOOD COUNT 3.5 10^6/uL (4.35-5.85); RED CELL DISTRIBUTION WIDTH 17.2 % (10.0-14.5); WHITE BLOOD COUNT 5.9 10^3/uL (4.3-11.0)
[2017-01-03 06:51] LABS: ALANINE AMINOTRANSFERASE 26 U/L (0-55); ALBUMIN 2.5 G/DL (3.2-4.5); ANION GAP 10 MMOL/L (5-14); ASPARTATE AMINO TRANSFERASE 28 U/L (5-34); BILIRUBIN,TOTAL 2.6 MG/DL (0.1-1.0); BLOOD UREA NITROGEN 7 MG/DL (7-18); BUN/CREATININE RATIO 13; CALCIUM 7.7 MG/DL (8.5-10.1); CARBON DIOXIDE 34 MMOL/L (21-32); CHLORIDE 94 MMOL/L (98-107); CREATININE SERUM 0.56 MG/DL (0.60-1.30); GFR ESTIMATED > 60; GLUCOSE 136 MG/DL (70-105); SODIUM 138 MMOL/L (135-145); TOTAL PROTEIN 5.1 G/DL (6.4-8.2)
[2017-01-03] MEDS: inSUlin ASPART (NovoLOG) 1 UNIT/0.01 ML (CHARGE PER UNIT) SC SCH ×4 (07:04→20:40)
--- NOTE | 2017-01-03 07:29 | Progress Note (SOAP) ---
Subjective Subjective No overnight events- Pt reports no pain. Drank some cranberry juice this AM. Mentation comes and goes. Not alert enough to remove moreno- Review of Systems ROS Unable to Obtain: pt denies ROS but mentation is not the clearest General: No Chills, No Night Sweats HEENT: No Head Aches Pulmonary: No Dyspnea, No Cough Cardiovascular: No: Chest Pain, Palpitations Gastrointestinal: No: Abdominal Pain, Nausea, Vomiting Musculoskeletal: No: neck pain, shoulder pain Neurological: No: Numbness, Weakness All Other Systems Reviewed All Other Systems Reviewed: Yes Objective Exam Vital Signs Vital Sign - Last 12Hours 01/02/17 01/02/17 10:05 18:08 Temp 97.9 Pulse 82 Resp 18 B/P (MAP) 136/62 Pulse Ox 98 O2 Flow Rate 4.00 Capillary Refill : General Appearance: No Apparent Distress, Mild Distress (thin extremities, large abdomen) Eyes: Bilateral Eye EOMI, Bilateral Eye Normal Inspection, Bilateral Eye PERRL HEENT: PERRL/EOMI, Other (edentulous) Neck: Full Range of Motion, Supple Respiratory: Chest Non Tender, Lungs Clear, Normal Breath Sounds, No Accessory Muscle Use, Decreased Breath Sounds (bases) Cardiovascular: Regular Rate, Rhythm Gastrointestinal: Normal Bowel Sounds, No Organomegaly, No Pulsatile Mass, Non Tender, Soft Rectal: Deferred Genital/Rectal: Other (moreno) Extremity: Normal Capillary Refill, Non Tender, No Calf Tenderness, Pedal Edema Neurologic/Psychiatric: Alert, Depressed Affect, Other (confusion) Skin: Warm/Dry, Jaundice Lymphatic: No Adenopathy Results Lab Laboratory Tests 01/02/17 14:29: Glucometer 182H 01/02/17 20:22: Glucometer 164H 01/03/17 05:55: White Blood Count 5.9, Red Blood Count 3.50L, Hemoglobin 10.5L, Hematocrit 32L, Mean Corpuscular Volume 92, Mean Corpuscular Hemoglobin 30, Mean Corpuscular Hemoglobin Concent 33, Red Cell Distribution Width 17.2H, Platelet Count 32*L, Mean Platelet Volume 11.4H, Sodium Level 138, Potassium Level 3.0L, Chloride Level 94L, Carbon Dioxide Level 34H, Anion Gap 10, Blood Urea Nitrogen 7, Creatinine 0.56L, Estimat Glomerular Filtration Rate > 60, BUN/Creatinine Ratio 13, Glucose Level 136H, Calcium Level 7.7L, Total Bilirubin 2.6H, Aspartate Amino Transf (AST/SGOT) 28, Alanine Aminotransferase (ALT/SGPT) 26, Alkaline Phosphatase 61, Total Protein 5.1L, Albumin 2.5L Assessment/Plan Assessment/Plan Assessment/Plan 61 yo M Pneumonia- due to N meningitidis- likely meningitis- LP not done due to low plts - continue ceftriaxone, vancomycin- through evening of 01/05/17 - improving Hepatic failure with esophageal varices- due to history of Hepatitis c, hepatocellular carcinoma- s/p radioablation (Sep 2016) patent TIPS (Sep 2016)- noted on u/s, pt does have low platelets- supportive care/monitor mental status hepatic encephalopathy- continue rifaximin, lactulose- monitor mental status Thrombocytopenia- continue to monitor plts, signs of bleeding. - plts (6pk) if plts <20 or active bleeding noted COPD- oxygen, RT, monitor hypokalemia- monitor, replacing prn hypomagnesemia- replacing Edema- on lasix, monitor UOP- Moreno in until pt's mentation improves- to decrease skin breakdown from maceration. Anemia- monitor Dispo: monitoring plts, UOP- transfusing for <20K or active bleeding ensues. Continue ceftriaxone, vancomcyin through 01/05/17. replacing electrolytes Problems: Clinical Quality Measures DVT/VTE Risk/Contraindication: Contraindications-Pharm: Other *list below* DINAH STOREY MD January 03, 2017 07:29
[2017-01-03] MEDS: PANTOPRAZOLE 20 MG TABLET (PROTONIX) PO SCH ×2 (07:56→16:02)
[2017-01-03] MEDS: KCL 20 MEQ TAB (K-DUR) PO SCH (07:56)
[2017-01-03] MEDS: morphine ER 15 MG (MS CONTIN) TAB PO PRN (07:56)
[2017-01-03] MEDS: VANCOMYCIN INJECTION 1,750 MG in NS IV 500 ML 500 ML IV SCH ×2 (09:47→20:39)
[2017-01-03] MEDS: RIFAXIMIN 550 MG TABLET (XIFAXAN) PO SCH ×2 (09:47→20:38)
[2017-01-03] MEDS: LACTULOSE SYRUP 10GM/15ML (ENULOSE) 30ML UDC PO SCH ×2 (09:47→20:39)
[2017-01-03] MEDS: FUROSEMIDE 40 MG/4 ML INJ (LASIX) IVP SCH (09:47)
[2017-01-03] MEDS: MAGNESIUM 1 GM/100 ML IVPB 100 ML IV SCH ×2 (11:12→11:14)
[2017-01-03] MEDS: VENlafaxine XR 75 MG (EFFEXOR XR) CAP PO SCH (11:39)
--- NOTE | 2017-01-03 11:54 | Diagnostic Imaging Report ---
INDICATION: Followup pneumonia. Study compared with one day prior. FINDINGS: Bilateral infiltrates are most notable in the upper lobes where they remains somewhat greater left than right. There is no gross interval change. No effusion or pneumothorax. IMPRESSION: Bilateral infiltrates greatest at the upper lobes are not convincingly changed from prior. Dictated by: Dictated on workstation # [id number]
--- NOTE | 2017-01-03 12:17 | Physical Therapy Daily Note ---
PT Daily Note-Current Subjective Unable to awaken pt. Nurse at bedside states pt. was very agitated and was given Haldol. Appearance unable to awaken Mental Status Patient Orientation: Unresponsive Transfers Functional [place] Measure 0=Not Assessed/NA 4=Minimal Assistance 1=Total Assistance 5=Supervision or Setup 2=Maximal Assistance 6=Modified [place] 3=Moderate Assistance 7=Complete IndependenceIRFPAI Quality Coding Scale 6 Independent with activity with or without an assistive device 5 Patient requires set up or clean up by helper. Patient completes activity by themselves 4 Supervision or touching assist (CGA). [place] provide cues , steadying assist 3 The helper provides less than half the effort to complete the activity 2 The helper provides more than half the effort to complete the activity 1 Dependent. The helper does all the effort to complete an activity 7 Patient refused to complete or attempt activity 9 The patient did not perform the activity before the current illness or injury 88 Not attempted due to Medical conditions or safety concerns Assessment Current Status: No Treatment/Other Tests unable to awaken, haldol had been given for agitation PT Senior Care Goals Hardware Trainer Goals PT Hardware Trainer Goals Time Frame: Jan 09, 2017 Transfers (B,C,W/C) (FIM): 5 Gait (FIM): 4 Distance: 150' Gait Level of Assist: 4 (CGA) Gait Assistive Device: FWW PT Plan Treatment/Plan Treatment Plan: Continue Plan of Care Treatment Plan: Bed Mobility, Education, Functional Activity Court, Functional Strength, Gait, Safety, Therapeutic Exercise, Transfers Treatment Duration: Jan 09, 2017 Visits Per Week: 5-6 Minutes/Day (M-F): 15-30 Minutes/Day (Sat/Chan): 15-30 Time/GCodes Time In: 1150 Time Out: 1150 Total Billed Treatment Time: 0 Total Billed Treatment 1,no Rx, no chg G Codes Necessary: No JULIAN BURNS SKEIN MERCERIZING MACHINE OPERATOR January 03, 2017 12:17
[2017-01-03] MEDS: KCL 10 MEQ TAB (MICRO K) PO SCH ×4 (14:16→20:38)
[2017-01-03 17:45] VITALS: BP 109/60
[2017-01-03] MEDS: VITAMIN D3 1,000 UNITS (CHOLECALCIFEROL) TABLET PO SCH (20:39)
[2017-01-04] MEDS: morphine ER 15 MG (MS CONTIN) TAB PO PRN ×2 (01:32→21:01)
[2017-01-04] MEDS: RT-ALBUTEROL/IPRATROPIUM 3 ML (DUONEB) VIAL INH SCH ×6 (02:46→22:01)
[2017-01-04] MEDS: cefTRIAXone INJECTION 2,000 MG in NS (IVPB) 50 ML IV SCH ×2 (04:15→16:14)
[2017-01-04] MEDS: KCL 20 MEQ TAB (K-DUR) PO SCH ×3 (05:54→21:29)
[2017-01-04] MEDS: PANTOPRAZOLE 20 MG TABLET (PROTONIX) PO SCH ×2 (05:54→16:14)
[2017-01-04 06:00] VITALS: BP 107/58
[2017-01-04] MEDS: inSUlin ASPART (NovoLOG) 1 UNIT/0.01 ML (CHARGE PER UNIT) SC SCH ×4 (06:06→21:28)
[2017-01-04 08:31] LABS: ANION GAP 9 MMOL/L (5-14); BLOOD UREA NITROGEN 12 MG/DL (7-18); BUN/CREATININE RATIO 15; CALCIUM 7.6 MG/DL (8.5-10.1); CARBON DIOXIDE 32 MMOL/L (21-32); CHLORIDE 99 MMOL/L (98-107); CREATININE SERUM 0.79 MG/DL (0.60-1.30); GFR ESTIMATED > 60; GLUCOSE 151 MG/DL (70-105); POTASSIUM 3.3 MMOL/L (3.6-5.0); SODIUM 140 MMOL/L (135-145)
[2017-01-04] MEDS: LACTULOSE SYRUP 10GM/15ML (ENULOSE) 30ML UDC PO SCH ×2 (09:30→21:28)
[2017-01-04] MEDS: FUROSEMIDE 40 MG/4 ML INJ (LASIX) IVP SCH (09:31)
[2017-01-04] MEDS: RIFAXIMIN 550 MG TABLET (XIFAXAN) PO SCH ×2 (09:31→21:29)
[2017-01-04] MEDS: VANCOMYCIN INJECTION 1,750 MG in NS IV 500 ML 500 ML IV SCH ×2 (09:31→21:28)
--- NOTE | 2017-01-04 09:51 | Diagnostic Imaging Report ---
CHEST 1 VIEW, AP/PA ONLY Indication: Pneumonia followup Comparison: 01/03/2017 Findings: Support Devices: Stable right IJ central venous catheter. Chest: Bilateral upper lobe heterogeneous airspace consolidations have not significantly changed. No pleural effusion or pneumothorax. Stable cardiomediastinal silhouette. Impression: 1. Stable right IJ central venous catheter. 2. Unchanged coarse bilateral heterogeneous opacities in the lung apices. Dictated by: Dictated on workstation # [id number]
[2017-01-04] MEDS: VENlafaxine XR 75 MG (EFFEXOR XR) CAP PO SCH (11:26)
[2017-01-04] MEDS: MAGNESIUM 1 GM/100 ML IVPB 100 ML IV SCH ×2 (12:55→12:59)
[2017-01-04] MEDS: POTASSIUM CL 10MEQ/50ML IVPB 50 ML IV SCH ×2 (12:55→12:59)
[2017-01-04 17:48] VITALS: BP 117/62
[2017-01-04] MEDS: VITAMIN D3 1,000 UNITS (CHOLECALCIFEROL) TABLET PO SCH (21:29)
[2017-01-05] MEDS: RT-ALBUTEROL/IPRATROPIUM 3 ML (DUONEB) VIAL INH SCH ×6 (02:00→21:23)
[2017-01-05] MEDS: cefTRIAXone INJECTION 2,000 MG in NS (IVPB) 50 ML IV SCH ×2 (04:18→17:50)
[2017-01-05] MEDS: morphine ER 15 MG (MS CONTIN) TAB PO PRN (04:58)
[2017-01-05] MEDS: PANTOPRAZOLE 20 MG TABLET (PROTONIX) PO SCH ×2 (04:58→17:50)
[2017-01-05] MEDS: inSUlin ASPART (NovoLOG) 1 UNIT/0.01 ML (CHARGE PER UNIT) SC SCH ×4 (05:02→21:50)
[2017-01-05 05:29] LABS: MEAN PLATELET VOLUME 11.1 FL (7.4-10.4); RED BLOOD COUNT 3.49 10^6/uL (4.35-5.85); RED CELL DISTRIBUTION WIDTH 17.7 % (10.0-14.5); WHITE BLOOD COUNT 10.1 10^3/uL (4.3-11.0)
[2017-01-05 05:50] LABS: ALANINE AMINOTRANSFERASE 20 U/L (0-55); ALBUMIN 2.3 G/DL (3.2-4.5); ANION GAP 8 MMOL/L (5-14); ASPARTATE AMINO TRANSFERASE 30 U/L (5-34); BILIRUBIN,TOTAL 1.6 MG/DL (0.1-1.0); BLOOD UREA NITROGEN 13 MG/DL (7-18); BUN/CREATININE RATIO 15; CALCIUM 7.5 MG/DL (8.5-10.1); CARBON DIOXIDE 32 MMOL/L (21-32); CHLORIDE 98 MMOL/L (98-107); CREATININE SERUM 0.85 MG/DL (0.60-1.30); GFR ESTIMATED > 60; GLUCOSE 272 MG/DL (70-105); MAGNESIUM 1.6 MG/DL (1.8-2.4); POTASSIUM 3.2 MMOL/L (3.6-5.0); SODIUM 138 MMOL/L (135-145); TOTAL PROTEIN 5.1 G/DL (6.4-8.2)
[2017-01-05 06:02] VITALS: BP 134/61
[2017-01-05] MEDS: FUROSEMIDE 40 MG/4 ML INJ (LASIX) IVP SCH (08:12)
[2017-01-05] MEDS: LACTULOSE SYRUP 10GM/15ML (ENULOSE) 30ML UDC PO SCH ×2 (08:12→21:50)
[2017-01-05] MEDS: VANCOMYCIN INJECTION 1,750 MG in NS IV 500 ML 500 ML IV SCH (08:12)
[2017-01-05] MEDS: RIFAXIMIN 550 MG TABLET (XIFAXAN) PO SCH ×2 (08:12→21:50)
[2017-01-05] MEDS: KCL 20 MEQ TAB (K-DUR) PO SCH ×2 (08:13→21:50)
--- NOTE | 2017-01-05 09:35 | Physical Therapy Daily Note ---
PT Daily Note-Current Subjective Patient agrees to PT. Patient repeated continuously, "I need to pee." PT reinforced to patient he has a catheter and patient argued with PT that he still need to urinate. RN notified. Mental Status Patient Orientation: Confused Attachments: Oxygen, Cárdenas Catheter, IV Transfers Functional [place] Measure 0=Not Assessed/NA 4=Minimal Assistance 1=Total Assistance 5=Supervision or Setup 2=Maximal Assistance 6=Modified [place] 3=Moderate Assistance 7=Complete IndependenceIRFPAI Quality Coding Scale 6 Independent with activity with or without an assistive device 5 Patient requires set up or clean up by helper. Patient completes activity by themselves 4 Supervision or touching assist (CGA). [place] provide cues , steadying assist 3 The helper provides less than half the effort to complete the activity 2 The helper provides more than half the effort to complete the activity 1 Dependent. The helper does all the effort to complete an activity 7 Patient refused to complete or attempt activity 9 The patient did not perform the activity before the current illness or injury 88 Not attempted due to Medical conditions or safety concerns Transfers (B, C, W/C) (FIM): 5 Scootin Roll Left to Right (QC): 5 Supine to/from Sit: 5 Sit to/from Stand: 5 Sit to Lying (QC): 5 Sit to Stand (QC): 5 Chair/Sfb-ju-Wyudf Xfer(QC): 5 Bed to/from Chair: 5 Gait Training Does the Patient Walk?: Yes Gait (FIM): 5 Distance (FIM): 3=150 ft Distance: 300' Walk 50 ft with 2 Turns(QC): 5 Walk 150 ft (QC): 5 Gait Level of Assist: 5 Gait Persons Needed: 1 Gait Assistive Device: FWW continuous skilled verbal instruction for body placement in FWW; patient is unsafe with FWW with demonstration of ambulating with bilateral UE's extended and with turns, body was to the side of FWW. Patient argues with PT on use of FWW and refuses to correct body position and FWW use. Patient is very unsafe with use. Exercises Supine Ex: Ankle pumps, Quad Set, Heel Slides, Straight leg raise Supine Reps: 15 Seated Therapy Exercises: Long arc quads Seated Reps: 15 Assessment Patient requires constant redirection to remain on task and for safety concerns. Patient is in bed with all 4 rails up and bed alarm activated for patient safety. PT Senior Care Goals Senior Care Goals PT Senior Care Goals Time Frame: Jan 09, 2017 Transfers (B,C,W/C) (FIM): 5 Sit to Lying (QC): 4 Lying-Sitting on Side/Bed(QC): 4 Sit to Stand (QC): 4 Rollin Gait (FIM): 4 Distance: 150' Walk 50ft with 2 Turns (QC): 4 Walk 150 ft (QC): 4 Gait Level of Assist: 4 (CGA) Gait Assistive Device: FWW PT Plan Treatment/Plan Treatment Plan: Continue Plan of Care Treatment Plan: Bed Mobility, Education, Functional Activity Court, Functional Strength, Gait, Safety, Therapeutic Exercise, Transfers Treatment Duration: Jan 09, 2017 Visits Per Week: 5-6 Minutes/Day (M-F): 15-30 Minutes/Day (Sat/Chan): 15-30 Time/GCodes Time In: 856 Time Out: 919 Total Billed Treatment Time: 23 Total Billed Treatment 1 visit GT 15 min EX 8 min UNIQUE CHRISTENSEN PT January 05, 2017 09:35
[2017-01-05] MEDS: HALOPERIDOL 5 MG/ML (HALDOL) AMP IM/IV PRN (09:40)
[2017-01-05] MEDS: MAGNESIUM 1 GM/100 ML IVPB 100 ML IV SCH ×2 (11:35→12:56)
--- NOTE | 2017-01-05 11:41 | Progress Note (SOAP) ---
Subjective Subjective No overnight events- Pt reports no pain. He will wake up at times and start to get angry, pulling on IV, pulling at his moreno. Haldol was given today with good results of pt calming down. Review of Systems ROS Unable to Obtain: pt denies ROS but mentation is not the clearest General: No Chills, No Night Sweats HEENT: No Head Aches Pulmonary: No Dyspnea, No Cough Cardiovascular: No: Chest Pain, Palpitations Gastrointestinal: No: Abdominal Pain, Nausea, Vomiting Musculoskeletal: No: neck pain, shoulder pain Neurological: No: Numbness, Weakness All Other Systems Reviewed All Other Systems Reviewed: Yes Objective Exam Vital Signs Vital Signs Date Time Temp Pulse Resp B/P (MAP) Pulse Ox O2 Delivery O2 Flow Rate FiO2 01/05/17 10:51 95 2.50 01/05/17 07:29 92 2.50 01/05/17 06:02 99.4 89 20 134/61 93 3.00 01/04/17 22:03 93 2.50 01/04/17 21:00 3.00 01/04/17 18:27 90 2.50 01/04/17 17:48 98.4 80 20 117/62 94 3.00 01/04/17 15:00 98.6 01/04/17 14:53 94 2.00 I & O 01/05/17 07:00 Intake Total 2595.0 ml Output Total 2825 ml Balance -230.0 ml General Appearance: No Apparent Distress, Mild Distress (thin extremities, large abdomen) Eyes: Bilateral Eye EOMI, Bilateral Eye Normal Inspection, Bilateral Eye PERRL HEENT: PERRL/EOMI, Other (edentulous) Neck: Full Range of Motion, Supple Respiratory: Chest Non Tender, Lungs Clear, Normal Breath Sounds, No Accessory Muscle Use, Decreased Breath Sounds (bases) Cardiovascular: Regular Rate, Rhythm Gastrointestinal: Normal Bowel Sounds, No Organomegaly, No Pulsatile Mass, Non Tender, Soft Rectal: Deferred Genital/Rectal: Other (moreno) Extremity: Normal Capillary Refill, Non Tender, No Calf Tenderness, Pedal Edema Neurologic/Psychiatric: Depressed Affect, Other (confusion) Skin: Warm/Dry, Jaundice Lymphatic: No Adenopathy Results Lab Laboratory Tests 01/04/17 14:48: Glucometer 180H 01/04/17 20:15: Glucometer 251H 01/05/17 04:59: Glucometer 236H, White Blood Count 10.1, Red Blood Count 3.49L, Hemoglobin 10.4L , Hematocrit 32L, Mean Corpuscular Volume 93, Mean Corpuscular Hemoglobin 30, Mean Corpuscular Hemoglobin Concent 32, Red Cell Distribution Width 17.7H, Platelet Count 54L, Mean Platelet Volume 11.1H, Sodium Level 138, Potassium Level 3.2L, Chloride Level 98, Carbon Dioxide Level 32, Anion Gap 8, Blood Urea Nitrogen 13, Creatinine 0.85, Estimat Glomerular Filtration Rate > 60, BUN/ Creatinine Ratio 15, Glucose Level 272H, Calcium Level 7.5L, Magnesium Level 1.6L, Total Bilirubin 1.6H, Aspartate Amino Transf (AST/SGOT) 30, Alanine Aminotransferase (ALT/SGPT) 20, Alkaline Phosphatase 65, Total Protein 5.1L, Albumin 2.3L 01/05/17 09:45: Glucometer 234H Assessment/Plan Assessment/Plan Assessment/Plan 61 yo M Pneumonia- due to N meningitidis- likely meningitis- LP not done due to low plts - continue ceftriaxone, vancomycin- through evening of 01/05/17 - improving Hepatic failure with esophageal varices- due to history of Hepatitis c, hepatocellular carcinoma- s/p radioablation (Sep 2016) patent TIPS (Sep 2016)- noted on u/s, pt does have low platelets- supportive care/monitor mental status hepatic encephalopathy- continue rifaximin, lactulose- monitor mental status Thrombocytopenia- continue to monitor plts, signs of bleeding. - plts (6pk) if plts <20 or active bleeding noted plts in the 50s- stable COPD- oxygen, RT, monitor hypokalemia- monitor, replacing -pt is on lasix hypomagnesemia- replacing prn Edema- on lasix, monitor UOP- Moreno in until pt's mentation improves- to decrease skin breakdown from maceration. Anemia- monitor Dispo: monitoring plts, UOP- transfusing for <20K or active bleeding ensues. Continue ceftriaxone, vancomcyin through 01/05/17. replacing electrolytes Problems: Clinical Quality Measures DVT/VTE Risk/Contraindication: Contraindications-Pharm: Other *list below* DINAH STOREY MD January 05, 2017 11:41
--- NOTE | 2017-01-05 13:00 | Diagnostic Imaging Report ---
Indication: Pneumonia Frontal chest obtained at 552 hours am, and compared with yesterday. Cardiomegaly again noted. There is unchanged bilateral infiltrate worse in the lung apices, but seen throughout both lungs. Right IJ catheter is unchanged. There is no pneumothorax or pleural fluid. IMPRESSION: Stable and unchanged infiltrates compared to yesterday. No new abnormality. Dictated by: Dictated on workstation # [id number]
[2017-01-05] MEDS: VENlafaxine XR 75 MG (EFFEXOR XR) CAP PO SCH (14:31)
--- NOTE | 2017-01-05 14:56 | Occupational Ther Daily Note ---
OT Current Status-Daily Note Subjective Pt sitting in chair dozing. Pt woke easily. Pt required encouragement to complete therapy then agreed. Pt asked if he could wait until tomorrow. Mental Status/Objective Patient Orientation: Unable to Assess Functional [place] Measure 0=Not Assessed/NA 4=Minimal Assistance 1=Total Assistance 5=Supervision or Setup 2=Maximal Assistance 6=Modified [place] 3=Moderate Assistance 7=Complete [place] Attachments: Cárdenas Catheter, IV ADL-Treatment Functional [place] Measure 0=Not Assessed/NA 4=Minimal Assistance 1=Total Assistance 5=Supervision or Setup 2=Maximal Assistance 6=Modified [place] 3=Moderate Assistance 7=Complete IndependenceIRFPAI Quality Coding Scale 6 Independent with activity with or without an assistive device 5 Patient requires set up or clean up by helper. Patient completes activity by themselves 4 Supervision or touching assist (CGA). [place] provide cues , steadying assist 3 The helper provides less than half the effort to complete the activity 2 The helper provides more than half the effort to complete the activity 1 Dependent. The helper does all the effort to complete an activity 7 Patient refused to complete or attempt activity 9 The patient did not perform the activity before the current illness or injury 88 Not attempted due to Medical conditions or safety concerns Other Treatment Attempted to get pt to complete arm exercises and pt did agree to complete. Pt would not move arms when attempting to get pt to do exercises without resistance. Then worked with pt to complete oral care. Attempted to place in R hand put unable to hold it, pt then transferred it to L hand and put in mouth. Pt just sucked on oral sponge and would not move around mouth to cleanse. After therapy, pt sitting in recliner with call light/phone in reach. All needs met in room. OT Short Term Goals Short Term Goals 1=Demonstrate adherence to instructed precautions during ADL tasks. 2=Patient will verbalize/demonstrate understanding of assistive devices/ modifications for ADL. 3=Patient will improve strength/tolerance for activity to enable patient to perform ADL's. OT Event Designer Goals Event Designer Goals Time Frame: Jan 23, 2017 Eating (FIM): 6 Eating (QC): 6 Groomin Oral Hygiene (QC): 6 Upper Body Dressing(FIM): 5 Lower Body Dressing(FIM): 4 Toileting(FIM): 5 Toileting Hygiene (QC): 5 Toilet/Commode Transfer(FIM): 5 Toilet/Commode Transfer (QC): 5 Additional Goals: 1-Demonstrate ADL Tasks, 2-Verbalize Understanding, 3- ImproveStrength/Court 1=Demonstrate adherence to instructed precautions during ADL tasks. 2=Patient will verbalize/demonstrate understanding of assistive devices/ modifications for ADL. 3=Patient will improve strength/tolerance for activity to enable patient to perform ADL's. OT Education/Plan Problem List/Assessment Pt to benefit from skilled OT intervention for ADL training, transfers, strengthening, and safety education to maximize level of function and allow safe discharge plan. Discharge Recommendations Plan/Recommendations: Continue POC Treatment Plan/Plan of Care Patient would benefit from OT for education, treatment and training to promote independence in ADL's, mobility, safety and/or upper extremity function for ADL' s. Plan of Care: ADL Retraining, Functional Mobility, UE Funct Exercise/Act Treatment Duration: Jan 23, 2017 Visits Per Week: 5 Agreement: Yes Rehab Potential: Poor Time/GCodes Start Time: 12:35 Stop Time: 12:50 Total Time Billed (hr/min): 15 Billed Treatment Time 1 visit-FA 1 (15 min) LINH MORRIS January 05, 2017 14:56
[2017-01-05 18:58] VITALS: BP 114/59
[2017-01-05] MEDS: MAGNESIUM OXIDE (MAG-OX)400 MG TAB PO SCH (21:50)
[2017-01-05] MEDS: VITAMIN D3 1,000 UNITS (CHOLECALCIFEROL) TABLET PO SCH (21:50)
[2017-01-05] MEDS: LORazepam 1 MG (ATIVAN) TAB PO PRN (21:50)
[2017-01-06] MEDS: RT-ALBUTEROL/IPRATROPIUM 3 ML (DUONEB) VIAL INH SCH ×6 (02:11→23:18)
[2017-01-06] MEDS: HALOPERIDOL 5 MG/ML (HALDOL) AMP IM/IV PRN ×2 (02:25→23:26)
[2017-01-06] MEDS: inSUlin ASPART (NovoLOG) 1 UNIT/0.01 ML (CHARGE PER UNIT) SC SCH ×4 (05:48→21:15)
[2017-01-06] MEDS: PANTOPRAZOLE 20 MG TABLET (PROTONIX) PO SCH ×2 (05:51→17:38)
[2017-01-06 06:26] VITALS: BP 122/66
--- NOTE | 2017-01-06 06:55 | Diagnostic Imaging Report ---
INDICATION: Pneumonia Portable chest 5:32 AM Comparison to previous day. Right jugular central line tip projects over the SVC. There are consolidating infiltrates in both apices. There is mild interstitial prominence in the remainder of the lungs. Heart size and pulmonary vascularity are normal. There are no effusions. IMPRESSION: Bilateral upper lobe consolidation consistent with pneumonia. No significant change from previous day. Dictated by: Dictated on workstation # [id number]
--- NOTE | 2017-01-06 08:20 | Progress Note (SOAP) ---
Subjective Subjective/Events-last exam PATIENT REPORTS THAT HE IS FEELING FATIGUED. HE STATES THAT HE FEELS BETTER, IS WONDERING WHEN HE WILL BE GOING HOME. HIS SISTER STATES THAT HE WAS DOING WELL ON THURSDAY, THURSDAY, BUT YESTERDAY STARTED TO GET CONFUSED AGAIN. Review of Systems General: Fatigue Pulmonary: Dyspnea, Cough Gastrointestinal: No: Nausea Genitourinary: Other (ANGELES IN PLACE) Musculoskeletal: other Neurological: Weakness, No: Confusion Objective Exam Vital Signs Date Time Temp Pulse Resp B/P (MAP) Pulse Ox O2 Delivery O2 Flow Rate FiO2 01/06/17 06:27 93 3.00 01/06/17 06:26 99.0 80 18 122/66 94 3.00 01/06/17 02:12 91 3.00 01/05/17 21:24 95 3.00 01/05/17 20:00 2.50 01/05/17 18:58 97.6 76 18 114/59 95 3.00 01/05/17 18:30 94 3.00 01/05/17 15:01 93 3.00 01/05/17 10:51 95 2.50 I & O 01/06/17 07:00 Intake Total 1840 ml Output Total 2100 ml Balance -260 ml Capillary Refill : General Appearance: No Apparent Distress, WD/WN HEENT: PERRL/EOMI Neck: Supple Respiratory: Chest Non Tender, Normal Breath Sounds, Crackles (LEFT BASE) Cardiovascular: Regular Rate, Rhythm Gastrointestinal: normal bowel sounds, soft Extremity: No Pedal Edema Neurologic/Psychiatric: Alert, Oriented x3, No Motor/Sensory Deficits, Normal Mood/Affect Skin: Warm/Dry Lymphatic: No Adenopathy Results Lab Laboratory Tests 01/05/17 09:45: Glucometer 234H 01/05/17 20:30: Glucometer 183H 01/06/17 05:35: Glucometer 175H Assessment/Plan Assessment/Plan Assess & Plan/Chief Complaint HAEMOPHILUS INFLUENZAE SEPSIS NEISSERIA MENINGITIDIS PNEUMONIA HX OF HEPATOCELLULAR CARCINOMA HX OF HEPATITIS C ESOPHAGEAL VARICES WITH TIPS IN PLACE COPD HYPOKALEMIA THROMBOCYTOPENIA 10 KILOGRAM FLUID GAIN ANEMIA PNEUMONIA AND SEPSIS - CONTINUE WITH CURRENT ANTIBIOTICS, UNABLE TO DO LUMBAR PUNCTURE DUE TO HIS LOW PLATELET COUNT, CONTINUE WITH SUPPORTIVE CARE, CONTACT PRECAUTIONS TO BE REMOVED REPEAT CULTURE CAME BACK NEGATIVE - STOPPED LEVAQUIN, CONTINUE WITH CEFEPIME AND VANCOMYCIN UNTIL THURSDAY EVENING. ESOPHAGEAL VARICES WITH TIPS - ABDOMINAL ULTRASOUND REVEALED THAT HIS TIPS IS PATENT COPD - CHRONIC - CONTINUE WITH OXYGEN FOR SUPPORTIVE CARE. HYPOKALEMIA - PT ON REPLACEMENT PROTOCOL PT WITH SIGNIFICANT PERSISTENT EDEMA UP TO ABDOMEN - GIVE 40MG LASIX THIS MORNING. - MONITOR OUTPUT ANEMIA - SUPPORTIVE CARE. PT HAD ANGELES IN PLACE, IT WAS ORDERED TO BE REMOVED BY ONE OF THE CONSULTING PHYSICIANS - THE PATIENT CONTINUES TO NEED A CATHETER I HAVE RESTARTED A ANGELES CATHETER - NEEDS TO REMAIN UNTIL PATIENT'S SENSORIUM CLEARS STOPPED REGLAN, MIRTAZAPINE, GLIMEPIRIDE MONITOR SYMPTOMS OF CONFUSION. Clinical Quality Measures DVT/VTE Risk/Contraindication: Contraindications-Pharm: Other *list below* BRITTANY RIOS MD January 06, 2017 08:20
[2017-01-06] MEDS: LACTULOSE SYRUP 10GM/15ML (ENULOSE) 30ML UDC PO SCH ×2 (10:32→20:20)
[2017-01-06] MEDS: RIFAXIMIN 550 MG TABLET (XIFAXAN) PO SCH ×2 (10:32→20:20)
[2017-01-06] MEDS: MAGNESIUM OXIDE (MAG-OX)400 MG TAB PO SCH ×2 (10:32→20:21)
[2017-01-06] MEDS: KCL 20 MEQ TAB (K-DUR) PO SCH ×2 (10:32→20:21)
[2017-01-06] MEDS: morphine ER 15 MG (MS CONTIN) TAB PO PRN ×2 (10:32→22:10)
[2017-01-06] MEDS: FUROSEMIDE 40 MG/4 ML INJ (LASIX) IVP SCH (10:33)
--- NOTE | 2017-01-06 10:55 | Physical Therapy Daily Note ---
PT Daily Note-Current Subjective Patient is in bed and rates his back pain 10/10 with RN present to issue meds. Pain Numeric Pain Scale: 10-Worst Possible Pain Location: Lower Location Body Site: Back Pain Description: Ache, Chronic Mental Status Patient Orientation: Confused Transfers Functional [place] Measure 0=Not Assessed/NA 4=Minimal Assistance 1=Total Assistance 5=Supervision or Setup 2=Maximal Assistance 6=Modified [place] 3=Moderate Assistance 7=Complete IndependenceIRFPAI Quality Coding Scale 6 Independent with activity with or without an assistive device 5 Patient requires set up or clean up by helper. Patient completes activity by themselves 4 Supervision or touching assist (CGA). [place] provide cues , steadying assist 3 The helper provides less than half the effort to complete the activity 2 The helper provides more than half the effort to complete the activity 1 Dependent. The helper does all the effort to complete an activity 7 Patient refused to complete or attempt activity 9 The patient did not perform the activity before the current illness or injury 88 Not attempted due to Medical conditions or safety concerns Transfers (B, C, W/C) (FIM): 4 Scootin Roll Left to Right (QC): 5 Supine to/from Sit: 5 Sit to/from Stand: 4 Sit to Lying (QC): 5 Sit to Stand (QC): 4 Patient is very impulsive and unaware of safety concerns. CGA with use of gait belt for safety Gait Training Does the Patient Walk?: Yes Gait (FIM): 4 Distance (FIM): 3=150 ft Distance: 200' x 2 Walk 50 ft with 2 Turns(QC): 4 Walk 150 ft (QC): 4 Gait Level of Assist: 4 Gait Persons Needed: 1 Gait Assistive Device: FWW very unsteady and unsafe; patient is impulsive and verbally inappropriate with PT Assessment Patient returned to bed with all 4 rails up and bed alarm activated. Patient not progressing with gross motor skills at this time and continues to be impulsive and unsafe with all mobility. PT Custodial Goals Neck Band Operator Goals PT Neck Band Operator Goals Time Frame: Jan 09, 2017 Transfers (B,C,W/C) (FIM): 5 Sit to Lying (QC): 4 Lying-Sitting on Side/Bed(QC): 4 Sit to Stand (QC): 4 Rollin Gait (FIM): 4 Distance: 150' Walk 50ft with 2 Turns (QC): 4 Walk 150 ft (QC): 4 Gait Level of Assist: 4 (CGA) Gait Assistive Device: FWW PT Plan Treatment/Plan Treatment Plan: Continue Plan of Care Treatment Plan: Bed Mobility, Education, Functional Activity Court, Functional Strength, Gait, Safety, Therapeutic Exercise, Transfers Treatment Duration: Jan 09, 2017 Visits Per Week: 5-6 Minutes/Day (M-F): 15-30 Minutes/Day (Sat/Chan): 15-30 Safety Risks/Education Patient Education: Safety Issues Teaching Recipient: Patient Teaching Methods: Discussion Response to Teaching: Reinforcement Needed Time/GCodes Time In: 1015 Time Out: 1030 Total Billed Treatment Time: 15 Total Billed Treatment 1 visit GT 15 min UNIQUE CHRISTENSEN PT January 06, 2017 10:55
--- NOTE | 2017-01-06 12:24 | Occupational Ther Daily Note ---
OT Current Status-Daily Note Subjective Pt in bed, states he needs to reposition. Pt agrees to therapy this am. Mental Status/Objective Patient Orientation: Person, Confused Functional [place] Measure 0=Not Assessed/NA 4=Minimal Assistance 1=Total Assistance 5=Supervision or Setup 2=Maximal Assistance 6=Modified [place] 3=Moderate Assistance 7=Complete [place] ADL-Treatment Pt supine to sit with minimal assistance. Sponge bath completed seated EOB. Pt able to wash upper body with set up and cues for completion. Pt washed bilateral upper legs. Has some difficulty washing lower legs and feet, but is able to complete task with increased time and cues for sequencing. Don hospital gown with minimal assistance. Pt doffed socks with SBA. Able to don left sock with minimal assistance, but required moderate assistance to don right sock. Sit to stand with CGA. Pt stepped to HOB with CGA using FWW. Pt has some difficulty following commands for mobility. Requires cues for safety and task completion. Pt sit to supine with supervision. Pt in bed with needs met, bed alarm on, and telesitter present after session. Functional [place] Measure 0=Not Assessed/NA 4=Minimal Assistance 1=Total Assistance 5=Supervision or Setup 2=Maximal Assistance 6=Modified [place] 3=Moderate Assistance 7=Complete IndependenceIRFPAI Quality Coding Scale 6 Independent with activity with or without an assistive device 5 Patient requires set up or clean up by helper. Patient completes activity by themselves 4 Supervision or touching assist (CGA). [place] provide cues , steadying assist 3 The helper provides less than half the effort to complete the activity 2 The helper provides more than half the effort to complete the activity 1 Dependent. The helper does all the effort to complete an activity 7 Patient refused to complete or attempt activity 9 The patient did not perform the activity before the current illness or injury 88 Not attempted due to Medical conditions or safety concerns OT Short Term Goals Short Term Goals 1=Demonstrate adherence to instructed precautions during ADL tasks. 2=Patient will verbalize/demonstrate understanding of assistive devices/ modifications for ADL. 3=Patient will improve strength/tolerance for activity to enable patient to perform ADL's. OT Tractor Operator Helper Goals Fdc Goals Time Frame: Jan 23, 2017 Eating (FIM): 6 Eating (QC): 6 Groomin Oral Hygiene (QC): 6 Upper Body Dressing(FIM): 5 Lower Body Dressing(FIM): 4 Toileting(FIM): 5 Toileting Hygiene (QC): 5 Toilet/Commode Transfer(FIM): 5 Toilet/Commode Transfer (QC): 5 Additional Goals: 1-Demonstrate ADL Tasks, 2-Verbalize Understanding, 3- ImproveStrength/Court 1=Demonstrate adherence to instructed precautions during ADL tasks. 2=Patient will verbalize/demonstrate understanding of assistive devices/ modifications for ADL. 3=Patient will improve strength/tolerance for activity to enable patient to perform ADL's. OT Education/Plan Problem List/Assessment Pt to benefit from skilled OT intervention for ADL training, transfers, strengthening, and safety education to maximize level of function and allow safe discharge plan. Discharge Recommendations Plan/Recommendations: Continue POC Treatment Plan/Plan of Care Patient would benefit from OT for education, treatment and training to promote independence in ADL's, mobility, safety and/or upper extremity function for ADL' s. Plan of Care: ADL Retraining, Functional Mobility, UE Funct Exercise/Act Treatment Duration: Jan 23, 2017 Visits Per Week: 5 Agreement: Yes Rehab Potential: Poor Time/GCodes Start Time: 11:13 Stop Time: 11:33 Total Time Billed (hr/min): 20 Billed Treatment Time 1 visit, ADL(20minutes) JOHNNY NGUYEN OT January 06, 2017 12:24
[2017-01-06] MEDS: VENlafaxine XR 75 MG (EFFEXOR XR) CAP PO SCH (12:50)
[2017-01-06] MEDS ORDERED: CEFDINIR 300 MG (OMNICEF) CAP PO ONE (14:53)
[2017-01-06] MEDS: CEFDINIR 300 MG (OMNICEF) CAP PO SCH (14:58)
[2017-01-06 18:09] VITALS: BP 121/71
[2017-01-06] MEDS: VITAMIN D3 1,000 UNITS (CHOLECALCIFEROL) TABLET PO SCH (20:21)
[2017-01-06] MEDS: LORazepam 1 MG (ATIVAN) TAB PO PRN (20:21)
[2017-01-07] MEDS: RT-ALBUTEROL/IPRATROPIUM 3 ML (DUONEB) VIAL INH SCH ×6 (02:00→21:46)
[2017-01-07] MEDS ORDERED: LORazepam INJ 2 MG/ML (ATIVAN) VIAL IVP ONE (02:15)
[2017-01-07] MEDS ORDERED: diphenhydrAMINE 50 MG/ML INJ (BENADRYL) IVP ONE (02:15)
[2017-01-07 05:54] VITALS: BP 130/75
[2017-01-07] MEDS: inSUlin ASPART (NovoLOG) 1 UNIT/0.01 ML (CHARGE PER UNIT) SC SCH ×4 (06:03→22:46)
[2017-01-07] MEDS: PANTOPRAZOLE 20 MG TABLET (PROTONIX) PO SCH ×2 (06:03→17:03)
[2017-01-07 06:46] LABS: MEAN PLATELET VOLUME 10.6 FL (7.4-10.4); RED BLOOD COUNT 3.11 10^6/uL (4.35-5.85); RED CELL DISTRIBUTION WIDTH 17.2 % (10.0-14.5); WHITE BLOOD COUNT 5.5 10^3/uL (4.3-11.0)
[2017-01-07 07:06] LABS: ALANINE AMINOTRANSFERASE 17 U/L (0-55); ALBUMIN 2.2 G/DL (3.2-4.5); ANION GAP 8 MMOL/L (5-14); ASPARTATE AMINO TRANSFERASE 27 U/L (5-34); BILIRUBIN,TOTAL 1.8 MG/DL (0.1-1.0); BLOOD UREA NITROGEN 12 MG/DL (7-18); BUN/CREATININE RATIO 14; CALCIUM 7.8 MG/DL (8.5-10.1); CARBON DIOXIDE 34 MMOL/L (21-32); CHLORIDE 97 MMOL/L (98-107); CREATININE SERUM 0.84 MG/DL (0.60-1.30); GFR ESTIMATED > 60; GLUCOSE 157 MG/DL (70-105); POTASSIUM 3.1 MMOL/L (3.6-5.0); SODIUM 139 MMOL/L (135-145); TOTAL PROTEIN 5.1 G/DL (6.4-8.2)
--- NOTE | 2017-01-07 08:32 | Diagnostic Imaging Report ---
EXAMINATION: Portable upright radiograph of the chest. INDICATION: Pneumonia. COMPARISON: 01/06/2017. FINDINGS: Extensive infiltrates are seen in the upper lobes with patchy basilar infiltrate as well. Overall, there is no significant change from the previous study. The heart size is normal. No effusion or pneumothorax. The mediastinum and ligia appear unremarkable. The right IJ line is unchanged. IMPRESSION: Extensive infiltrates, mostly in the upper lobes, with no significant change. Dictated by: Dictated on workstation # [id number]
[2017-01-07] MEDS ORDERED: KCL 20 MEQ TAB (K-DUR) PO NR (08:43)
[2017-01-07] MEDS: HALOPERIDOL 5 MG/ML (HALDOL) AMP IM SCH ×2 (09:00→22:55)
[2017-01-07] MEDS: FUROSEMIDE 40 MG/4 ML INJ (LASIX) IVP SCH (09:06)
--- NOTE | 2017-01-07 09:31 | Pulmonary Progress Note ---
Subjective Subjective/Events-last exam Dr. Lyn is reconsulting me secondary to pt's declining condition. Exam Exam Vital Signs Date Time Temp Pulse Resp B/P (MAP) Pulse Ox O2 Delivery O2 Flow Rate FiO2 01/07/17 07:40 97 3.00 01/07/17 05:54 98.5 72 18 130/75 92 3.00 01/06/17 20:00 2.50 01/06/17 18:31 95 3.00 01/06/17 18:09 96.7 74 12 121/71 97 3.00 01/06/17 14:50 94 3.00 01/06/17 10:45 95 3.00 I & O 01/07/17 07:00 Intake Total 2292 ml Output Total 3850 ml Balance -1558 ml General Appearance: No Apparent Distress, WD/WN HEENT: PERRL/EOMI Neck: Supple Respiratory: Chest Non Tender, Normal Breath Sounds, Crackles (LEFT BASE) Cardiovascular: Regular Rate, Rhythm Gastrointestinal: normal bowel sounds, soft Extremity: No Pedal Edema Neurologic/Psychiatric: Alert, Oriented x3, No Motor/Sensory Deficits, Normal Mood/Affect Skin: Warm/Dry Lymphatic: No Adenopathy Results Lab Laboratory Tests 01/07/17 06:30 Assessment/Plan Assessment/Plan Atelectasis with hypoxia -IS -oxygen -Pt is probably have obstructive apneas at night blayne with sedation. CPAP/ BiPAP would be beneficial however at this time it will probably make his psychosis worse. Pneumonia with neisseria meningitidis resolving meningitis -Omnicef Hepatitis C with liver cirrhosis and ascites s/p tips 3 mo ago hepatocellular carcinoma Hepatic/metabolic encephalopathy -repeat ammonia level -D/C Ativan -schedule Haldol 2mg IV BID - hold for sedation keep Haldol 5mg iV PRN for psychosis -morphine 2-4 IV Q4PRN (will hold PO morphine until pt is more awake and psychosis -Rifaximin -Lactulose 232 Clinical Quality Measures DVT/VTE Risk/Contraindication: Contraindications-Pharm: Other *list below* OSMAR ADAMES DO January 07, 2017 09:31
--- NOTE | 2017-01-07 09:39 | Progress Note (SOAP) ---
Subjective Subjective/Events-last exam PT CONFUSED - CONTINUES TO HAVE INTERMITTENT CONFUSION - AWARE OF WHO I AM ON EXAM, BUT PT QUITE GROGGY Review of Systems General: No Chills, Fatigue, Malaise HEENT: No Head Aches Pulmonary: Dyspnea, Cough Cardiovascular: No: Chest Pain Gastrointestinal: No: Abdominal Pain, Nausea Neurological: Confusion (MILD), Weakness Objective Exam Vital Signs Date Time Temp Pulse Resp B/P (MAP) Pulse Ox O2 Delivery O2 Flow Rate FiO2 01/07/17 07:40 97 3.00 01/07/17 05:54 98.5 72 18 130/75 92 3.00 01/06/17 20:00 2.50 01/06/17 18:31 95 3.00 01/06/17 18:09 96.7 74 12 121/71 97 3.00 01/06/17 14:50 94 3.00 01/06/17 10:45 95 3.00 I & O 01/07/17 07:00 Intake Total 2292 ml Output Total 3850 ml Balance -1558 ml Capillary Refill : General Appearance: No Apparent Distress, WD/WN HEENT: PERRL/EOMI, Pharynx Normal Neck: Full Range of Motion, Supple Respiratory: Chest Non Tender, Crackles, Decreased Breath Sounds Cardiovascular: Regular Rate, Rhythm Gastrointestinal: normal bowel sounds, non tender, soft, no organomegaly, no pulsatile mass Extremity: Normal Capillary Refill, Pedal Edema (TRACE) Neurologic/Psychiatric: Alert, Oriented x3, No Motor/Sensory Deficits, Normal Mood/Affect Skin: Warm/Dry Results Lab Laboratory Tests 01/06/17 11:03: Glucometer 201H 01/06/17 15:57: Glucometer 218H 01/06/17 20:36: Glucometer 302H 01/07/17 05:32: Glucometer 156H 01/07/17 06:30: White Blood Count 5.5, Red Blood Count 3.11L, Hemoglobin 9.2L, Hematocrit 29L, Mean Corpuscular Volume 94, Mean Corpuscular Hemoglobin 30, Mean Corpuscular Hemoglobin Concent 32, Red Cell Distribution Width 17.2H, Platelet Count 52L, Mean Platelet Volume 10.6H, Sodium Level 139, Potassium Level 3.1L, Chloride Level 97L, Carbon Dioxide Level 34H, Anion Gap 8, Blood Urea Nitrogen 12, Creatinine 0.84, Estimat Glomerular Filtration Rate > 60, BUN/Creatinine Ratio 14, Glucose Level 157H, Calcium Level 7.8L, Total Bilirubin 1.8H, Aspartate Amino Transf (AST/SGOT) 27, Alanine Aminotransferase (ALT/SGPT) 17, Alkaline Phosphatase 57, Total Protein 5.1L, Albumin 2.2L 01/07/17 09:00: Ammonia 28 Assessment/Plan Assessment/Plan Assess & Plan/Chief Complaint HAEMOPHILUS INFLUENZAE SEPSIS NEISSERIA MENINGITIDIS PNEUMONIA HX OF HEPATOCELLULAR CARCINOMA HX OF HEPATITIS C 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 ESOPHAGEAL VARICES WITH TIPS - ABDOMINAL ULTRASOUND REVEALED THAT HIS TIPS IS PATENT COPD - CHRONIC - CONTINUE WITH OXYGEN FOR SUPPORTIVE CARE. HYPOKALEMIA - PT ON REPLACEMENT PROTOCOL PT IMPROVED EDEMA - CONTINUE WITH LASIX, WILL DECREASE DOSE ONCE SYMPTOMS IMPROVE MORE FULLY. ANEMIA - SUPPORTIVE CARE. Clinical Quality Measures DVT/VTE Risk/Contraindication: Contraindications-Pharm: Other *list below* BRITTANY RIOS MD January 07, 2017 09:39
[2017-01-07] MEDS: CEFDINIR 300 MG (OMNICEF) CAP PO SCH ×2 (11:27→22:47)
[2017-01-07] MEDS: VENlafaxine XR 75 MG (EFFEXOR XR) CAP PO SCH (11:27)
[2017-01-07] MEDS: RIFAXIMIN 550 MG TABLET (XIFAXAN) PO SCH ×2 (11:27→22:47)
[2017-01-07] MEDS: MAGNESIUM OXIDE (MAG-OX)400 MG TAB PO SCH ×2 (11:27→22:47)
[2017-01-07] MEDS: LACTULOSE SYRUP 10GM/15ML (ENULOSE) 30ML UDC PO SCH ×2 (11:27→22:46)
[2017-01-07] MEDS: KCL 20 MEQ TAB (K-DUR) PO SCH ×2 (11:28→22:47)
[2017-01-07] MEDS ORDERED: BISACODYL 10 MG SUPP (DULCOLAX) PR NR (14:00)
--- NOTE | 2017-01-07 14:12 | Occupational Ther Daily Note ---
OT Current Status-Daily Note Subjective Pt sleeping in bed, sister present in room. Sister had to assist CARRERA to wake pt up and encourage him to participate in therapy. Mental Status/Objective Patient Orientation: Person, Unable to Assess Functional [place] Measure 0=Not Assessed/NA 4=Minimal Assistance 1=Total Assistance 5=Supervision or Setup 2=Maximal Assistance 6=Modified [place] 3=Moderate Assistance 7=Complete [place] Attachments: IV ADL-Treatment Functional [place] Measure 0=Not Assessed/NA 4=Minimal Assistance 1=Total Assistance 5=Supervision or Setup 2=Maximal Assistance 6=Modified [place] 3=Moderate Assistance 7=Complete IndependenceIRFPAI Quality Coding Scale 6 Independent with activity with or without an assistive device 5 Patient requires set up or clean up by helper. Patient completes activity by themselves 4 Supervision or touching assist (CGA). [place] provide cues , steadying assist 3 The helper provides less than half the effort to complete the activity 2 The helper provides more than half the effort to complete the activity 1 Dependent. The helper does all the effort to complete an activity 7 Patient refused to complete or attempt activity 9 The patient did not perform the activity before the current illness or injury 88 Not attempted due to Medical conditions or safety concerns Other Treatment Pt's sister had to encourage pt to open eyes and participate in therapy. Pt finally took wash clothe and washed face with R hand. Then with more encouragement pt held onto oral swab with R hand then switched to left and moved swab around mouth 1x. CARRERA moistened swab again with H2O, pt just sucked on swab. Then he said he wanted a hao and to go for a ride. Pt then fell asleep. After therapy, pt's sister present in room with pt lying in bed. Call light in reach. All needs met in room. OT Short Term Goals Short Term Goals 1=Demonstrate adherence to instructed precautions during ADL tasks. 2=Patient will verbalize/demonstrate understanding of assistive devices/ modifications for ADL. 3=Patient will improve strength/tolerance for activity to enable patient to perform ADL's. OT Mcc Goals Consumer Product Advisor Goals Time Frame: Jan 23, 2017 Eating (FIM): 6 Eating (QC): 6 Groomin Oral Hygiene (QC): 6 Upper Body Dressing(FIM): 5 Lower Body Dressing(FIM): 4 Toileting(FIM): 5 Toileting Hygiene (QC): 5 Toilet/Commode Transfer(FIM): 5 Toilet/Commode Transfer (QC): 5 Additional Goals: 1-Demonstrate ADL Tasks, 2-Verbalize Understanding, 3- ImproveStrength/Court 1=Demonstrate adherence to instructed precautions during ADL tasks. 2=Patient will verbalize/demonstrate understanding of assistive devices/ modifications for ADL. 3=Patient will improve strength/tolerance for activity to enable patient to perform ADL's. OT Education/Plan Problem List/Assessment Pt to benefit from skilled OT intervention for ADL training, transfers, strengthening, and safety education to maximize level of function and allow safe discharge plan. Discharge Recommendations Plan/Recommendations: Continue POC Treatment Plan/Plan of Care Patient would benefit from OT for education, treatment and training to promote independence in ADL's, mobility, safety and/or upper extremity function for ADL' s. Plan of Care: ADL Retraining, Functional Mobility, UE Funct Exercise/Act Treatment Duration: Jan 23, 2017 Visits Per Week: 5 Agreement: Yes Rehab Potential: Poor Time/GCodes Start Time: 13:05 Stop Time: 13:20 Total Time Billed (hr/min): 15 Billed Treatment Time 1 visit-FA 1 (15 min) LINH MORRIS January 07, 2017 14:12
--- NOTE | 2017-01-07 15:46 | Physical Therapy Daily Note ---
PT Daily Note-Current Subjective Pt laying Supine in bed upon arrival. Pt agrees to PT. Mental Status Patient Orientation: Person, Confused Attachments: Cárdenas Catheter Transfers Functional [place] Measure 0=Not Assessed/NA 4=Minimal Assistance 1=Total Assistance 5=Supervision or Setup 2=Maximal Assistance 6=Modified [place] 3=Moderate Assistance 7=Complete IndependenceIRFPAI Quality Coding Scale 6 Independent with activity with or without an assistive device 5 Patient requires set up or clean up by helper. Patient completes activity by themselves 4 Supervision or touching assist (CGA). [place] provide cues , steadying assist 3 The helper provides less than half the effort to complete the activity 2 The helper provides more than half the effort to complete the activity 1 Dependent. The helper does all the effort to complete an activity 7 Patient refused to complete or attempt activity 9 The patient did not perform the activity before the current illness or injury 88 Not attempted due to Medical conditions or safety concerns Scootin Roll Left to Right (QC): 5 Supine to/from Sit: 5 Sit to/from Stand: 5 Sit to Lying (QC): 5 Sit to Stand (QC): 5 Weight Bearing Weight Bearing Restriction: Full Weight Bearing Location Restriction: LE Bilateral Gait Training Does the Patient Walk?: Yes Distance (FIM): 4=359-94 ft Distance: 100' Walk 50 ft with 2 Turns(QC): 4 Gait Level of Assist: 4 Gait Persons Needed: 1 Gait Assistive Device: FWW Pt is very unsafe with ambulation. Pt tends to walk with walker too far out in front of pt and drifts or pushes to the right even with VC and PC. Wheelchair Training Does the Pt Use a Wheelchair?: No Treatments Pt transferred from Supine to EOB at SBA then EOB to Standing using FWW at SBA for safety. Pt ambulates in hallway using FWW at CGA-Min A for safety and balance. Assessment Current Status: Fair Progress Pt is not safe with ambulation due to keeping FWW out in front and pushes to R. PT Rhinologist Goals Rhinologist Goals PT Rhinologist Goals Time Frame: Jan 09, 2017 Transfers (B,C,W/C) (FIM): 5 Sit to Lying (QC): 4 Lying-Sitting on Side/Bed(QC): 4 Sit to Stand (QC): 4 Rollin Gait (FIM): 4 Distance: 150' Walk 50ft with 2 Turns (QC): 4 Walk 150 ft (QC): 4 Gait Level of Assist: 4 (CGA) Gait Assistive Device: FWW PT Plan Problem List Problem List: Activity Tolerance, Safety, Balance, Gait Treatment/Plan Treatment Plan: Continue Plan of Care Treatment Plan: Bed Mobility, Education, Functional Activity Court, Functional Strength, Gait, Safety, Therapeutic Exercise, Transfers Treatment Duration: Jan 09, 2017 Visits Per Week: 5-6 Minutes/Day (M-F): 15-30 Minutes/Day (Sat/Chan): 15-30 Safety Risks/Education Patient Education: Gait Training, Transfer Techniques, Correct Positioning, Safety Issues Teaching Recipient: Patient Teaching Methods: Discussion Response to Teaching: Reinforcement Needed Time/GCodes Time In: 1415 Time Out: 1435 Total Billed Treatment Time: 20 Total Billed Treatment visit, GT (20m) IOANA GUERRA PTA January 07, 2017 15:46
[2017-01-07 17:50] VITALS: BP 133/72
[2017-01-07] MEDS: VITAMIN D3 1,000 UNITS (CHOLECALCIFEROL) TABLET PO SCH (22:47)
[2017-01-08] MEDS: RT-ALBUTEROL/IPRATROPIUM 3 ML (DUONEB) VIAL INH SCH ×6 (02:35→22:04)
[2017-01-08] MEDS: inSUlin ASPART (NovoLOG) 1 UNIT/0.01 ML (CHARGE PER UNIT) SC SCH ×4 (05:10→21:26)
[2017-01-08 06:00] VITALS: BP 128/73
[2017-01-08] MEDS: PANTOPRAZOLE 20 MG TABLET (PROTONIX) PO SCH ×2 (06:00→16:17)
--- NOTE | 2017-01-08 07:20 | Diagnostic Imaging Report ---
INDICATION: Followup pneumonia. COMPARISON: 01/07/2017 FINDINGS: Single frontal radiographic view of the chest was obtained and demonstrates persistent mild cardiomegaly. Pulmonary vasculature is within normal limits. Lungs continue to show patchy and confluent infiltrate type appearing opacities within the bilateral upper lung parker. There has been no significant change when compared to most recent exam. No large effusion or pneumothorax is seen. Bony structures show no gross acute abnormalities. Right internal jugular central venous catheter is again noted. IMPRESSION: 1. Stable exam of the chest showing bilateral infiltrates as described above. Dictated by: Dictated on workstation # [id number]
--- NOTE | 2017-01-08 08:38 | Progress Note (SOAP) ---
Subjective Subjective/Events-last exam PT FEELING QUITE A BIT BETTER TODAY - HE IS REQUESTING TO GO HOME, HIS SISTER IS HAPPY WITH HOW IMPROVED HE HAS BEEN OVER THE PAST 48 HOURS. Review of Systems General: Fatigue HEENT: No Head Aches Pulmonary: Dyspnea, No Cough Cardiovascular: No: Chest Pain Gastrointestinal: No: Abdominal Pain, Nausea Genitourinary: No Dysuria Neurological: Weakness Objective Exam Vital Signs Date Time Temp Pulse Resp B/P (MAP) Pulse Ox O2 Delivery O2 Flow Rate FiO2 01/08/17 07:28 98 3.00 01/08/17 06:00 96.8 74 18 128/73 99 3.00 01/08/17 02:35 96 3.00 01/07/17 21:46 96 3.00 01/07/17 20:00 2.50 01/07/17 18:13 95 3.00 01/07/17 17:50 98.0 91 20 133/72 95 3.00 01/07/17 15:42 80 01/07/17 11:16 97 3.00 I & O 01/08/17 07:00 Intake Total 1480 ml Output Total 3250 ml Balance -1770 ml Capillary Refill : General Appearance: No Apparent Distress, WD/WN HEENT: PERRL/EOMI, Pharynx Normal Neck: Full Range of Motion, Supple Respiratory: Chest Non Tender, Decreased Breath Sounds Cardiovascular: Regular Rate, Rhythm, No Gallop, No JVD, Other (TRACE EDEMA) Gastrointestinal: normal bowel sounds, non tender, soft, no organomegaly, no pulsatile mass Extremity: Pedal Edema Neurologic/Psychiatric: Alert, Oriented x3, Normal Mood/Affect Skin: Warm/Dry Lymphatic: No Adenopathy Results Lab Laboratory Tests 01/07/17 09:00: Ammonia 28 01/07/17 09:47: Glucometer 138H 01/07/17 14:12: Glucometer 161H 01/07/17 22:35: Glucometer 201H 01/08/17 05:06: Glucometer 166H Assessment/Plan Assessment/Plan Assess & Plan/Chief Complaint HAEMOPHILUS INFLUENZAE SEPSIS NEISSERIA MENINGITIDIS PNEUMONIA HX OF HEPATOCELLULAR CARCINOMA HX OF HEPATITIS C 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 ESOPHAGEAL VARICES WITH TIPS - ABDOMINAL ULTRASOUND REVEALED THAT HIS TIPS IS PATENT COPD - CHRONIC - CONTINUE WITH OXYGEN FOR SUPPORTIVE CARE. HYPOKALEMIA - PT ON REPLACEMENT PROTOCOL PT IMPROVEMENT IN HIS EDEMA . ANEMIA - SUPPORTIVE CARE. REMOVE ANGELES TODAY Clinical Quality Measures DVT/VTE Risk/Contraindication: Contraindications-Pharm: Other *list below* BRITTANY RIOS MD Jan 08, 2017 08:38
[2017-01-08] MEDS: LACTULOSE SYRUP 10GM/15ML (ENULOSE) 30ML UDC PO SCH ×2 (10:19→21:24)
[2017-01-08] MEDS: RIFAXIMIN 550 MG TABLET (XIFAXAN) PO SCH ×2 (10:19→21:25)
[2017-01-08] MEDS: CEFDINIR 300 MG (OMNICEF) CAP PO SCH ×2 (10:19→21:25)
[2017-01-08] MEDS: FUROSEMIDE 40 MG/4 ML INJ (LASIX) IVP SCH (10:19)
[2017-01-08] MEDS: MAGNESIUM OXIDE (MAG-OX)400 MG TAB PO SCH ×2 (10:19→21:25)
[2017-01-08] MEDS: KCL 20 MEQ TAB (K-DUR) PO SCH ×2 (10:20→21:24)
[2017-01-08] MEDS: HALOPERIDOL 5 MG/ML (HALDOL) AMP IM SCH ×2 (10:20→21:26)
--- NOTE | 2017-01-08 12:14 | Physical Therapy Daily Note ---
PT Daily Note-Current Subjective Pt sitting up in chair upon arrival. Pt agrees to walk for PT but needs to use restroom first. Mental Status Patient Orientation: Person, Confused, Place Attachments: Oxygen, Cárdenas Catheter Transfers Functional [place] Measure 0=Not Assessed/NA 4=Minimal Assistance 1=Total Assistance 5=Supervision or Setup 2=Maximal Assistance 6=Modified [place] 3=Moderate Assistance 7=Complete IndependenceIRFPAI Quality Coding Scale 6 Independent with activity with or without an assistive device 5 Patient requires set up or clean up by helper. Patient completes activity by themselves 4 Supervision or touching assist ([facility]). [place] provide cues , steadying assist 3 The helper provides less than half the effort to complete the activity 2 The helper provides more than half the effort to complete the activity 1 Dependent. The helper does all the effort to complete an activity 7 Patient refused to complete or attempt activity 9 The patient did not perform the activity before the current illness or injury 88 Not attempted due to Medical conditions or safety concerns Scootin Sit to/from Stand: 5 Sit to Stand (QC): 5 Weight Bearing Weight Bearing Restriction: Full Weight Bearing Location Restriction: LE Bilateral Gait Training Does the Patient Walk?: Yes Distance (FIM): 3=150 ft Distance: 150' Walk 50 ft with 2 Turns(QC): 4 Walk 150 ft (QC): 4 Gait Level of Assist: 4 Gait Persons Needed: 1 Gait Assistive Device: FWW Pt has safety concerns while walking such as not keeping FWW close and pushes to the L too much even with VC. Wheelchair Training Does the Pt Use a Wheelchair?: No Treatments Pt transferred from recliner to standing using FWW at [facility] for safety. Pt ambulates to restroom and after finishing ambulates in hallway using FWW at [facility] for safety. Pt returns to room to rest in recliner with all needs met at end of tx. Assessment Current Status: Fair Progress Pt needs VC for keeping FWW close to pt as well as not pushing FWW too much to the L. PT Detention Goals Detention Goals PT Detention Goals Time Frame: Jan 09, 2017 Transfers (B,C,W/C) (FIM): 5 Sit to Lying (QC): 4 Lying-Sitting on Side/Bed(QC): 4 Sit to Stand (QC): 4 Rollin Gait (FIM): 4 Distance: 150' Walk 50ft with 2 Turns (QC): 4 Walk 150 ft (QC): 4 Gait Level of Assist: 4 (CGA) Gait Assistive Device: FWW PT Plan Problem List Problem List: Activity Tolerance, Functional Strength, Safety, Balance, Gait, Transfer Treatment/Plan Treatment Plan: Continue Plan of Care Treatment Plan: Bed Mobility, Education, Functional Activity Court, Functional Strength, Gait, Safety, Therapeutic Exercise, Transfers Treatment Duration: Jan 09, 2017 Visits Per Week: 5-6 Minutes/Day (M-F): 15-30 Minutes/Day (Sat/Chan): 15-30 Safety Risks/Education Patient Education: Gait Training, Transfer Techniques, Correct Positioning, Safety Issues Teaching Recipient: Patient Teaching Methods: Discussion Response to Teaching: Reinforcement Needed Time/GCodes Time In: 1115 Time Out: 1145 Total Billed Treatment Time: 30 Total Billed Treatment visit, FA (15m) & GT (15m) IOANA GUERRA CLINICAL DATA MANAGER Jan 08, 2017 12:14
[2017-01-08] MEDS: VENlafaxine XR 75 MG (EFFEXOR XR) CAP PO SCH (12:58)
--- NOTE | 2017-01-08 13:38 | Pulmonary Progress Note ---
Exam Exam Vital Signs Date Time Temp Pulse Resp B/P (MAP) Pulse Ox O2 Delivery O2 Flow Rate FiO2 01/08/17 07:28 98 3.00 01/08/17 06:00 96.8 74 18 128/73 99 3.00 01/08/17 02:35 96 3.00 01/07/17 21:46 96 3.00 01/07/17 20:00 2.50 01/07/17 18:13 95 3.00 01/07/17 17:50 98.0 91 20 133/72 95 3.00 01/07/17 15:42 80 I & O 01/08/17 07:00 Intake Total 1480 ml Output Total 3250 ml Balance -1770 ml General Appearance: No Apparent Distress, WD/WN HEENT: PERRL/EOMI Neck: Supple Respiratory: Chest Non Tender, Normal Breath Sounds, Crackles (LEFT BASE) Cardiovascular: Regular Rate, Rhythm Gastrointestinal: normal bowel sounds, soft Extremity: No Pedal Edema Neurologic/Psychiatric: Alert, Oriented x3, No Motor/Sensory Deficits, Normal Mood/Affect Skin: Warm/Dry Lymphatic: No Adenopathy Results Lab Laboratory Tests 01/07/17 06:30 Assessment/Plan Assessment/Plan Atelectasis with hypoxia -IS -oxygen -Pt is probably have obstructive apneas at night blayne with sedation. CPAP/ BiPAP would be beneficial however at this time it will probably make his psychosis worse. Pneumonia with neisseria meningitidis resolving meningitis -Omnicef Hepatitis C with liver cirrhosis and ascites s/p tips 3 mo ago hepatocellular carcinoma Hepatic/metabolic encephalopathy -D/C Ativan -schedule Haldol 2mg IV BID - hold for sedation keep Haldol 5mg iV PRN for psychosis -morphine 2-4 IV Q4PRN (will hold PO morphine until pt is more awake and psychosis -Rifaximin -Lactulose 232 Clinical Quality Measures DVT/VTE Risk/Contraindication: Contraindications-Pharm: Other *list below* OSMAR ADAMES DO Jan 08, 2017 13:37
--- NOTE | 2017-01-08 13:59 | Occupational Ther Daily Note ---
OT Current Status-Daily Note Subjective Pt sitting in chair finishing with PT, agrees to treatment. PT states pt is requesting to don clean gown. Pt has no c/o pain during session. Mental Status/Objective Functional [place] Measure 0=Not Assessed/NA 4=Minimal Assistance 1=Total Assistance 5=Supervision or Setup 2=Maximal Assistance 6=Modified [place] 3=Moderate Assistance 7=Complete [place] ADL-Treatment Pt completed sponge bath while seated in chair. Pt able to wash upper body with set up and cues for task completion. Pt able to wash LE with SBA and cues for sequencing. Pt declined to remove socks to wash feet. Don hospital gown with minimal assistance for correct placement of UE into sleeves. Pt able to use mouth swab for oral care with set up and verbal cues. Pt sitting in chair with needs met, chair alarm in place and telesitter present after session. Functional [place] Measure 0=Not Assessed/NA 4=Minimal Assistance 1=Total Assistance 5=Supervision or Setup 2=Maximal Assistance 6=Modified [place] 3=Moderate Assistance 7=Complete IndependenceIRFPAI Quality Coding Scale 6 Independent with activity with or without an assistive device 5 Patient requires set up or clean up by helper. Patient completes activity by themselves 4 Supervision or touching assist (CGA). [place] provide cues , steadying assist 3 The helper provides less than half the effort to complete the activity 2 The helper provides more than half the effort to complete the activity 1 Dependent. The helper does all the effort to complete an activity 7 Patient refused to complete or attempt activity 9 The patient did not perform the activity before the current illness or injury 88 Not attempted due to Medical conditions or safety concerns OT Short Term Goals Short Term Goals 1=Demonstrate adherence to instructed precautions during ADL tasks. 2=Patient will verbalize/demonstrate understanding of assistive devices/ modifications for ADL. 3=Patient will improve strength/tolerance for activity to enable patient to perform ADL's. OT Shelter Goals Industrial Illuminating Engineer Goals Time Frame: Jan 23, 2017 Eating (FIM): 6 Eating (QC): 6 Groomin Oral Hygiene (QC): 6 Upper Body Dressing(FIM): 5 Lower Body Dressing(FIM): 4 Toileting(FIM): 5 Toileting Hygiene (QC): 5 Toilet/Commode Transfer(FIM): 5 Toilet/Commode Transfer (QC): 5 Additional Goals: 1-Demonstrate ADL Tasks, 2-Verbalize Understanding, 3- ImproveStrength/Court 1=Demonstrate adherence to instructed precautions during ADL tasks. 2=Patient will verbalize/demonstrate understanding of assistive devices/ modifications for ADL. 3=Patient will improve strength/tolerance for activity to enable patient to perform ADL's. OT Education/Plan Problem List/Assessment Pt to benefit from skilled OT intervention for ADL training, transfers, strengthening, and safety education to maximize level of function and allow safe discharge plan. Discharge Recommendations Plan/Recommendations: Continue POC Treatment Plan/Plan of Care Patient would benefit from OT for education, treatment and training to promote independence in ADL's, mobility, safety and/or upper extremity function for ADL' s. Plan of Care: ADL Retraining, Functional Mobility, UE Funct Exercise/Act Treatment Duration: Jan 23, 2017 Visits Per Week: 5 Agreement: Yes Rehab Potential: Poor Time/GCodes Start Time: 11:45 Stop Time: 12:01 Total Time Billed (hr/min): 16 Billed Treatment Time 1 visit, ADL(16minutes) JOHNNY NGUYEN OT Jan 08, 2017 13:59
[2017-01-08] MEDS: morphine INJ 4 MG/ML 1 ML (VIAL/SYRINGE) IVP PRN (15:19)
[2017-01-08 18:15] VITALS: BP 121/69
[2017-01-08] MEDS: VITAMIN D3 1,000 UNITS (CHOLECALCIFEROL) TABLET PO SCH (21:25)
[2017-01-09] MEDS: morphine INJ 4 MG/ML 1 ML (VIAL/SYRINGE) IVP PRN (01:50)
[2017-01-09] MEDS: RT-ALBUTEROL/IPRATROPIUM 3 ML (DUONEB) VIAL INH SCH ×6 (02:14→21:56)
[2017-01-09] MEDS: inSUlin ASPART (NovoLOG) 1 UNIT/0.01 ML (CHARGE PER UNIT) SC SCH ×4 (05:18→20:17)
[2017-01-09] MEDS: PANTOPRAZOLE 20 MG TABLET (PROTONIX) PO SCH ×2 (06:13→18:23)
[2017-01-09 06:42] VITALS: BP 128/78
[2017-01-09] MEDS: HALOPERIDOL 5 MG/ML (HALDOL) AMP IM SCH (07:24)
[2017-01-09] MEDS: CEFDINIR 300 MG (OMNICEF) CAP PO SCH ×2 (07:25→20:17)
[2017-01-09] MEDS: MAGNESIUM OXIDE (MAG-OX)400 MG TAB PO SCH ×2 (07:25→20:17)
[2017-01-09] MEDS: LACTULOSE SYRUP 10GM/15ML (ENULOSE) 30ML UDC PO SCH ×2 (07:25→20:17)
[2017-01-09] MEDS: RIFAXIMIN 550 MG TABLET (XIFAXAN) PO SCH ×2 (07:25→20:17)
[2017-01-09] MEDS: KCL 20 MEQ TAB (K-DUR) PO SCH ×2 (07:26→20:22)
--- NOTE | 2017-01-09 11:40 | Pulmonary Progress Note ---
Subjective Subjective/Events-last exam PT is doing better mentally Exam Exam Vital Signs Date Time Temp Pulse Resp B/P (MAP) Pulse Ox O2 Delivery O2 Flow Rate FiO2 01/09/17 10:13 96 2.50 01/09/17 06:42 98.8 84 20 128/78 97 2.00 01/09/17 06:14 96 2.50 01/09/17 02:15 92 3.00 01/08/17 22:05 95 3.00 01/08/17 20:00 2.50 01/08/17 18:34 97 3.00 01/08/17 18:15 98.2 92 20 121/69 97 3.00 01/08/17 14:36 96 3.00 I & O 01/09/17 07:00 Intake Total 2260 ml Output Total 2650 ml Balance -390 ml General Appearance: No Apparent Distress, WD/WN HEENT: PERRL/EOMI Neck: Supple Respiratory: Chest Non Tender, Normal Breath Sounds, Crackles (LEFT BASE) Cardiovascular: Regular Rate, Rhythm Gastrointestinal: normal bowel sounds, soft Extremity: No Pedal Edema Neurologic/Psychiatric: Alert, Oriented x3, No Motor/Sensory Deficits, Normal Mood/Affect Skin: Warm/Dry Lymphatic: No Adenopathy Assessment/Plan Assessment/Plan Atelectasis with hypoxia -IS -oxygen -Pt is probably have obstructive apneas at night blayne with sedation. CPAP/ BiPAP would be beneficial however at this time it will probably make his psychosis worse. Pneumonia with neisseria meningitidis resolving meningitis -Omnicef Hepatitis C with liver cirrhosis and ascites s/p tips 3 mo ago hepatocellular carcinoma Hepatic/metabolic encephalopathy - Haldol 2mg IV BID - hold for sedation keep Haldol 5mg iV PRN for psychosis -morphine 2-4 IV Q4PRN (will hold PO morphine until pt is more awake and psychosis -Rifaximin -Lactulose 232 Clinical Quality Measures DVT/VTE Risk/Contraindication: Contraindications-Pharm: Other *list below* OSMAR ADAMES DO Jan 09, 2017 11:39
--- NOTE | 2017-01-09 11:49 | Physical Therapy Daily Note ---
PT Daily Note-Current Subjective Pt. in bed asleep. Sister present. Pt. awakens and agrees to Rx with much encouragement. Sister present and encouraging. Mental Status Patient Orientation: Confused Attachments: Oxygen Transfers Functional [place] Measure 0=Not Assessed/NA 4=Minimal Assistance 1=Total Assistance 5=Supervision or Setup 2=Maximal Assistance 6=Modified [place] 3=Moderate Assistance 7=Complete IndependenceIRFPAI Quality Coding Scale 6 Independent with activity with or without an assistive device 5 Patient requires set up or clean up by helper. Patient completes activity by themselves 4 Supervision or touching assist (CGA). [place] provide cues , steadying assist 3 The helper provides less than half the effort to complete the activity 2 The helper provides more than half the effort to complete the activity 1 Dependent. The helper does all the effort to complete an activity 7 Patient refused to complete or attempt activity 9 The patient did not perform the activity before the current illness or injury 88 Not attempted due to Medical conditions or safety concerns Transfers (B, C, W/C) (FIM): 5 Scootin Rollin Supine to/from Sit: 5 Sit to/from Stand: 5 Sit to Stand (QC): 5 Bed to/from Chair: 5 Gait Training Does the Patient Walk?: Yes Gait (FIM): 2 Distance (FIM): 9=069-75 ft (70ft) Gait Level of Assist: 3 Gait Persons Needed: 1 Gait Assistive Device: Cane Large Base Quad crosses feet over, toe in, poor control of FWW, comes outside of walker boundaries Exercises Seated Therapy Exercises: Ankle pumps, Long arc quads Seated Reps: 10 Assessment Current Status: Fair Progress dependent for safe mobility, unable to follow commands PT Alf Goals Clerical Aide Teacher Goals PT Alf Goals Time Frame: Jan 09, 2017 Transfers (B,C,W/C) (FIM): 5 Sit to Lying (QC): 4 Lying-Sitting on Side/Bed(QC): 4 Sit to Stand (QC): 4 Rollin Gait (FIM): 4 Distance: 150' Walk 50ft with 2 Turns (QC): 4 Walk 150 ft (QC): 4 Gait Level of Assist: 4 (CGA) Gait Assistive Device: FWW PT Plan Treatment/Plan Treatment Plan: Continue Plan of Care Treatment Plan: Bed Mobility, Education, Functional Activity Court, Functional Strength, Gait, Safety, Therapeutic Exercise, Transfers Treatment Duration: Jan 09, 2017 Visits Per Week: 5-6 Minutes/Day (M-F): 15-30 Minutes/Day (Sat/Chan): 15-30 Safety Risks/Education Patient Education: Gait Training, Transfer Techniques Teaching Recipient: Patient Teaching Methods: Demonstration Response to Teaching: Unable to Return Demonstration, Return Demonstration, Unable to Comprehend, Reinforcement Needed Time/GCodes Time In: 835 Time Out: 900 Total Billed Treatment Time: 25 Total Billed Treatment 1,FA25m G Codes Necessary: JULIAN Wisdom CHIEF RESERVOIR ENGINEERING Jan 09, 2017 11:49
--- NOTE | 2017-01-09 12:42 | Occupational Ther Daily Note ---
OT Current Status-Daily Note Subjective Pt in bed, agrees to treatment with encouragement. Mental Status/Objective Functional [place] Measure 0=Not Assessed/NA 4=Minimal Assistance 1=Total Assistance 5=Supervision or Setup 2=Maximal Assistance 6=Modified [place] 3=Moderate Assistance 7=Complete [place] ADL-Treatment Pt supine to sit with supervision. Pt sat EOB with good balance. Sit to stand with supervision. Transfer to chair with SBA and cues for safety. Pt washed face with set up while seated in chair. Pt declined further activity, requested to return to bed after extended rest break. Transfer chair to bed with CGA with FWW. Pt requires multiple cues for safety during mobility tasks. Sit to supine with SBA. Pt able to reposition self in bed. Pt in bed with needs met and sister present after session. Bed alarm activated and telesitter present. OT Short Term Goals Short Term Goals 1=Demonstrate adherence to instructed precautions during ADL tasks. 2=Patient will verbalize/demonstrate understanding of assistive devices/ modifications for ADL. 3=Patient will improve strength/tolerance for activity to enable patient to perform ADL's. OT Mcc Goals Review Engineer Goals Time Frame: Jan 23, 2017 Eating (FIM): 6 Grooming(FIM): 6 Upper Body Dressing(FIM): 5 Lower Body Dressing(FIM): 4 Toileting(FIM): 5 Toilet/Commode Transfer(FIM): 5 Additional Goals: 1-Demonstrate ADL Tasks, 2-Verbalize Understanding, 3- ImproveStrength/Court 1=Demonstrate adherence to instructed precautions during ADL tasks. 2=Patient will verbalize/demonstrate understanding of assistive devices/ modifications for ADL. 3=Patient will improve strength/tolerance for activity to enable patient to perform ADL's. OT Education/Plan Problem List/Assessment Pt to benefit from skilled OT intervention for ADL training, transfers, strengthening, and safety education to maximize level of function and allow safe discharge plan. Discharge Recommendations Plan/Recommendations: Continue POC Treatment Plan/Plan of Care Patient would benefit from OT for education, treatment and training to promote independence in ADL's, mobility, safety and/or upper extremity function for ADL' s. Plan of Care: ADL Retraining, Functional Mobility, UE Funct Exercise/Act Treatment Duration: Jan 23, 2017 Visits Per Week: 5 Agreement: Yes Rehab Potential: Poor Time/GCodes Start Time: 11:32 Stop Time: 11:47 Total Time Billed (hr/min): 15 Billed Treatment Time 1 visit, FA(15minutes) JOHNNY NGUYEN OT Jan 09, 2017 12:42
--- NOTE | 2017-01-09 12:52 | Progress Note (SOAP) ---
Subjective Subjective/Events-last exam PT SLEEPY, BUT AROUSED TO VOICE, KNOWS WHO I AM, WHERE HE IS, AND IS ASKING ABOUT BEING ABLE TO GO HOME. HIS SISTER WAS NOT IN THE ROOM, BUT I CALLED HER AND WE DISCUSSED CORDELIA'S CASE. SHE REPORTS THAT HE WAS UP A LOT LAST NIGHT GOING TO THE RESTROOM AFTER HIS ANGELES WAS REMOVED. SHE REPORTS SOME PERSISTENT CONFUSION - HE WAS TALKING ABOUT " BIRDS IN THE SOUP", BUT WAS HAVING NORMAL CONVERSATION BEFORE AND AFTER THE BIRDS COMMENT. Review of Systems General: Fatigue HEENT: No Head Aches Pulmonary: Dyspnea, No Cough Cardiovascular: No: Chest Pain Gastrointestinal: No: Abdominal Pain, Nausea Genitourinary: No Dysuria Neurological: Confusion (INTERMITTENT), Weakness Objective Exam Vital Signs Date Time Temp Pulse Resp B/P (MAP) Pulse Ox O2 Delivery O2 Flow Rate FiO2 01/09/17 10:13 96 2.50 01/09/17 06:42 98.8 84 20 128/78 97 2.00 01/09/17 06:14 96 2.50 01/09/17 02:15 92 3.00 01/08/17 22:05 95 3.00 01/08/17 20:00 2.50 01/08/17 18:34 97 3.00 01/08/17 18:15 98.2 92 20 121/69 97 3.00 01/08/17 14:36 96 3.00 I & O 01/09/17 07:00 Intake Total 2260 ml Output Total 2650 ml Balance -390 ml Capillary Refill : General Appearance: No Apparent Distress, WD/WN HEENT: PERRL/EOMI, Pharynx Normal Neck: Full Range of Motion Respiratory: Chest Non Tender, Lungs Clear, Normal Breath Sounds Cardiovascular: Regular Rate, Rhythm Gastrointestinal: normal bowel sounds, non tender, soft, no organomegaly Extremity: Normal Capillary Refill, No Pedal Edema Neurologic/Psychiatric: Alert, Oriented x3, No Motor/Sensory Deficits Skin: Warm/Dry Lymphatic: No Adenopathy Results Lab Laboratory Tests 01/08/17 15:54: Glucometer 241H 01/08/17 21:12: Glucometer 343H 01/09/17 05:09: Glucometer 172H 01/09/17 09:59: Glucometer 220H Assessment/Plan Assessment/Plan Assess & Plan/Chief Complaint HAEMOPHILUS INFLUENZAE SEPSIS NEISSERIA MENINGITIDIS PNEUMONIA HX OF HEPATOCELLULAR CARCINOMA HX OF HEPATITIS C 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 ESOPHAGEAL VARICES WITH TIPS - ABDOMINAL ULTRASOUND REVEALED THAT HIS TIPS IS PATENT COPD - CHRONIC - CONTINUE WITH OXYGEN FOR SUPPORTIVE CARE. HYPOKALEMIA - PT ON REPLACEMENT PROTOCOL PT IMPROVEMENT IN HIS EDEMA - STOP IV LASIX ANEMIA - SUPPORTIVE CARE. REMOVE ANGELES YESTERDAY - CONFUSION - IMPROVING - SOME OF THIS CONFUSION IS DELIRIUM - SYMPTOMS ARE IMPROVING - WILL DECREASE HALDOL. Clinical Quality Measures DVT/VTE Risk/Contraindication: Contraindications-Pharm: Other *list below* BRITTANY RIOS MD Jan 09, 2017 12:52
[2017-01-09] MEDS: FUROSEMIDE 40 MG/4 ML INJ (LASIX) IVP SCH (12:58)
[2017-01-09 18:01] VITALS: BP 112/68
[2017-01-09] MEDS: VENlafaxine XR 75 MG (EFFEXOR XR) CAP PO SCH (18:23)
[2017-01-09] MEDS: HALOPERIDOL 0.5 MG (HALDOL) TAB PO SCH (20:17)
[2017-01-09] MEDS: VITAMIN D3 1,000 UNITS (CHOLECALCIFEROL) TABLET PO SCH (20:17)
[2017-01-10] MEDS: morphine ER 15 MG (MS CONTIN) TAB PO PRN ×2 (00:36→09:09)
[2017-01-10] MEDS: RT-ALBUTEROL/IPRATROPIUM 3 ML (DUONEB) VIAL INH SCH ×6 (02:28→22:24)
[2017-01-10 05:36] LABS: MEAN PLATELET VOLUME 10.2 FL (7.4-10.4); RED BLOOD COUNT 3.2 10^6/uL (4.35-5.85); RED CELL DISTRIBUTION WIDTH 16.6 % (10.0-14.5); WHITE BLOOD COUNT 3.2 10^3/uL (4.3-11.0)
[2017-01-10 06:00] VITALS: BP 117/61
[2017-01-10 06:04] LABS: ALANINE AMINOTRANSFERASE 20 U/L (0-55); ALBUMIN 2.2 G/DL (3.2-4.5); ANION GAP 9 MMOL/L (5-14); ASPARTATE AMINO TRANSFERASE 35 U/L (5-34); BILIRUBIN,TOTAL 1.8 MG/DL (0.1-1.0); BLOOD UREA NITROGEN 7 MG/DL (7-18); BUN/CREATININE RATIO 8; CALCIUM 7.9 MG/DL (8.5-10.1); CARBON DIOXIDE 34 MMOL/L (21-32); CHLORIDE 96 MMOL/L (98-107); CREATININE SERUM 0.84 MG/DL (0.60-1.30); GFR ESTIMATED > 60; GLUCOSE 168 MG/DL (70-105); SODIUM 139 MMOL/L (135-145); TOTAL PROTEIN 5.7 G/DL (6.4-8.2)
[2017-01-10] MEDS: inSUlin ASPART (NovoLOG) 1 UNIT/0.01 ML (CHARGE PER UNIT) SC SCH ×4 (06:31→21:09)
[2017-01-10] MEDS: PANTOPRAZOLE 20 MG TABLET (PROTONIX) PO SCH ×2 (06:43→17:09)
--- NOTE | 2017-01-10 08:56 | Progress Note (SOAP) ---
Subjective Date Seen by Provider: Jan 10, 2017 Time Seen by Provider: 08:25 Subjective/Events-last exam PT REPORTS THAT HE IS FEELING BETTER TODAY - HE STATES THAT HE IS FEELING STRONGER, NOT HAVING SHORTNESS OF BREATH. HIS SISTERS WERE NOT IN THE ROOM TODAY AT THE TIME OF MY EXAM OF THE PATIENT. HIS NURSE STATES THAT SHE THINKS HE IS MUCH IMPROVED FROM EARLIER IN THE WEEK. Review of Systems General: Fatigue HEENT: No Head Aches, No Visual Changes Pulmonary: No Dyspnea, No Cough Cardiovascular: No: Chest Pain Gastrointestinal: No: Abdominal Pain, Nausea Genitourinary: No Dysuria Musculoskeletal: back pain Neurological: Confusion (INTERMITTENT) Objective Exam Vital Signs Date Time Temp Pulse Resp B/P (MAP) Pulse Ox O2 Delivery O2 Flow Rate FiO2 01/10/17 08:00 2.50 01/10/17 06:27 2.50 01/10/17 06:00 98.2 81 18 117/61 92 2.00 01/10/17 02:29 98 2.50 01/09/17 21:56 98 2.50 01/09/17 20:00 2.50 01/09/17 18:01 96.2 73 20 112/68 97 2.00 01/09/17 13:32 91 2.50 01/09/17 10:13 96 2.50 I & O 01/10/17 07:00 Intake Total 2070 ml Output Total 1725 ml Balance 345 ml Capillary Refill : General Appearance: No Apparent Distress, WD/WN HEENT: PERRL/EOMI, Pharynx Normal Neck: Full Range of Motion, Supple Respiratory: Chest Non Tender, Lungs Clear, Normal Breath Sounds, No Accessory Muscle Use Cardiovascular: Regular Rate, Rhythm Gastrointestinal: normal bowel sounds, non tender, soft Extremity: Normal Capillary Refill, Non Tender, No Calf Tenderness, No Pedal Edema Neurologic/Psychiatric: Alert, Oriented x3, No Motor/Sensory Deficits, Normal Mood/Affect, fiber technician II-XII Norm as Tested Skin: Warm/Dry Lymphatic: No Adenopathy Results Lab Laboratory Tests 01/09/17 09:59: Glucometer 220H 01/09/17 15:23: Glucometer 242H 01/09/17 20:02: Glucometer 239H 01/10/17 05:10: White Blood Count 3.2L, Red Blood Count 3.20L, Hemoglobin 9.4L, Hematocrit 29L, Mean Corpuscular Volume 92, Mean Corpuscular Hemoglobin 29, Mean Corpuscular Hemoglobin Concent 32, Red Cell Distribution Width 16.6H, Platelet Count 61L, Mean Platelet Volume 10.2, Sodium Level 139, Potassium Level 3.0L, Chloride Level 96L, Carbon Dioxide Level 34H, Anion Gap 9, Blood Urea Nitrogen 7, Creatinine 0.84, Estimat Glomerular Filtration Rate > 60, BUN/Creatinine Ratio 8 , Glucose Level 168H, Calcium Level 7.9L, Total Bilirubin 1.8H, Aspartate Amino Transf (AST/SGOT) 35H, Alanine Aminotransferase (ALT/SGPT) 20, Alkaline Phosphatase 68, Total Protein 5.7L, Albumin 2.2L Assessment/Plan Assessment/Plan Assess & Plan/Chief Complaint HAEMOPHILUS INFLUENZAE SEPSIS NEISSERIA MENINGITIDIS PNEUMONIA HX OF HEPATOCELLULAR CARCINOMA HX OF HEPATITIS C 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 ESOPHAGEAL VARICES WITH TIPS - ABDOMINAL ULTRASOUND REVEALED THAT HIS TIPS IS PATENT COPD - CHRONIC - CONTINUE WITH OXYGEN FOR SUPPORTIVE CARE. HYPOKALEMIA - PT ON REPLACEMENT PROTOCOL PT IMPROVEMENT IN HIS EDEMA - STOPPED IV LASIX, PLACED ON 10MG DAILY OF LASIX BY MOUTH. ANEMIA - SUPPORTIVE CARE. CONFUSION - IMPROVING - SOME OF THIS CONFUSION IS DELIRIUM - SYMPTOMS ARE IMPROVING - HALDOL DECREASED, WILL DECREASE AGAIN TOMORROW. HYPOKALEMIA - REPLENISH IV TODAY. CHECK LABS TOMORROW, CHECK MAGNESIUM TOMORROW WELL. Clinical Quality Measures DVT/VTE Risk/Contraindication: Contraindications-Pharm: Other *list below* BRITTANY RIOS MD Jan 10, 2017 08:56
[2017-01-10] MEDS: LACTULOSE SYRUP 10GM/15ML (ENULOSE) 30ML UDC PO SCH ×2 (08:59→21:09)
[2017-01-10] MEDS: FUROSEMIDE 20 MG (LASIX) TAB PO SCH (08:59)
[2017-01-10] MEDS: RIFAXIMIN 550 MG TABLET (XIFAXAN) PO SCH ×2 (09:00→21:09)
[2017-01-10] MEDS ORDERED: CALCIUM CARBONATE 600 MG (CALCARB) TAB PO ONE (09:00)
[2017-01-10] MEDS: MAGNESIUM OXIDE (MAG-OX)400 MG TAB PO SCH ×2 (09:00→21:09)
[2017-01-10] MEDS: HALOPERIDOL 0.5 MG (HALDOL) TAB PO SCH ×2 (09:00→21:09)
[2017-01-10] MEDS: KCL 20 MEQ TAB (K-DUR) PO SCH ×2 (09:00→21:09)
[2017-01-10] MEDS: CEFDINIR 300 MG (OMNICEF) CAP PO SCH ×2 (09:00→21:09)
[2017-01-10] MEDS ORDERED: MAGNESIUM 1 GM/100 ML IVPB 100 ML IV ONE (09:00)
--- NOTE | 2017-01-10 09:32 | Diagnostic Imaging Report ---
EXAM: PA and lateral chest. COMPARISON to prior study from January 08, 2017. INDICATION: Pneumonia. FINDINGS: Chronic interstitial changes are present within the lungs. There are also superimposed alveolar opacities demonstrated within both lungs which have slightly improved the lung apices when compared to the previous exam. There are persistent residual infiltrates at the left lung base. Heart size appears stable. There is no large effusion or evidence of a pneumothorax. A right internal jugular central line remains present. IMPRESSION: There has been interval improvement in the interstitial and alveolar opacities at the lung apices. A small degree of residual infiltrates persist at the left base. The findings are superimposed on background chronic interstitial lung disease. Dictated by: Dictated on workstation # [id number]
[2017-01-10] MEDS: POTASSIUM CL 10MEQ/50ML IVPB 50 ML IV SCH ×4 (10:13→12:39)
--- NOTE | 2017-01-10 12:04 | Physical Therapy Daily Note ---
PT Daily Note-Current Subjective Pt sitting in recliner upon arrival. Pt agrees to PT although pt is confused and continues to try to take O2 off during tx. Mental Status Patient Orientation: Person, Confused Attachments: Oxygen, IV Transfers Functional [place] Measure 0=Not Assessed/NA 4=Minimal Assistance 1=Total Assistance 5=Supervision or Setup 2=Maximal Assistance 6=Modified [place] 3=Moderate Assistance 7=Complete IndependenceIRFPAI Quality Coding Scale 6 Independent with activity with or without an assistive device 5 Patient requires set up or clean up by helper. Patient completes activity by themselves 4 Supervision or touching assist (CGA). [place] provide cues , steadying assist 3 The helper provides less than half the effort to complete the activity 2 The helper provides more than half the effort to complete the activity 1 Dependent. The helper does all the effort to complete an activity 7 Patient refused to complete or attempt activity 9 The patient did not perform the activity before the current illness or injury 88 Not attempted due to Medical conditions or safety concerns Scootin Sit to/from Stand: 5 Sit to Stand (QC): 5 Weight Bearing Weight Bearing Restriction: Full Weight Bearing Location Restriction: LE Bilateral Gait Training Does the Patient Walk?: Yes Distance (FIM): 1=up to 49 ft Distance: 20' Gait Level of Assist: 5 Gait Persons Needed: 1 Gait Assistive Device: FWW Pt walks with slow and wobbly gait. Pt is confused and doesn't listen to VC given and is unsafe. Wheelchair Training Does the Pt Use a Wheelchair?: No Exercises Seated Therapy Exercises: Ankle pumps, Long arc quads, Hip flexion, Kicking activity Seated Reps: 15 Treatments Pt completes Seated Ex in recliner then transfers to standing and reports needing to use restroom at SBA at FWW. Pt returns to recliner after using restroom at end of tx with all needs met. Assessment Current Status: Fair Progress Pt able to complete Ex and transfers/ambulation but not always safely due to confusion. Pt tries to leave chair w/o FWW and O2. PT Pipe Threader Goals Fdc Goals PT Fdc Goals Time Frame: Jan 09, 2017 Transfers (B,C,W/C) (FIM): 5 Sit to Lying (QC): 4 Lying-Sitting on Side/Bed(QC): 4 Sit to Stand (QC): 4 Rollin Gait (FIM): 4 Distance: 150' Walk 50ft with 2 Turns (QC): 4 Walk 150 ft (QC): 4 Gait Level of Assist: 4 (CGA) Gait Assistive Device: FWW PT Plan Problem List Problem List: Activity Tolerance, Safety, Balance, Gait Treatment/Plan Treatment Plan: Continue Plan of Care Treatment Plan: Bed Mobility, Education, Functional Activity Court, Functional Strength, Gait, Safety, Therapeutic Exercise, Transfers Treatment Duration: Jan 09, 2017 Visits Per Week: 5-6 Minutes/Day (M-F): 15-30 Minutes/Day (Sat/Chan): 15-30 Safety Risks/Education Patient Education: Gait Training, Reviewed Precautions, Correct Positioning, Safety Issues Teaching Recipient: Patient Teaching Methods: Discussion Response to Teaching: Reinforcement Needed Time/GCodes Time In: 1130 Time Out: 1150 Total Billed Treatment Time: 20 Total Billed Treatment visit, FA (20m) IOANA GUERRA PTA Jan 10, 2017 12:04
[2017-01-10 13:01] VITALS: BP 123/77
[2017-01-10] MEDS: VENlafaxine XR 75 MG (EFFEXOR XR) CAP PO SCH (13:29)
[2017-01-10 17:23] VITALS: BP 115/56
[2017-01-10] MEDS: VITAMIN D3 1,000 UNITS (CHOLECALCIFEROL) TABLET PO SCH (21:09)
[2017-01-10] MEDS: morphine INJ 4 MG/ML 1 ML (VIAL/SYRINGE) IVP PRN (23:00)
[2017-01-11] MEDS: HALOPERIDOL 5 MG/ML (HALDOL) AMP IV PRN ×3 (00:18→08:59)
[2017-01-11] MEDS: RT-ALBUTEROL/IPRATROPIUM 3 ML (DUONEB) VIAL INH SCH ×6 (02:34→21:48)
[2017-01-11] MEDS: morphine INJ 4 MG/ML 1 ML (VIAL/SYRINGE) IVP PRN (03:09)
[2017-01-11 05:10] VITALS: BP 146/81
[2017-01-11] MEDS: inSUlin ASPART (NovoLOG) 1 UNIT/0.01 ML (CHARGE PER UNIT) SC SCH ×4 (05:29→19:30)
[2017-01-11 05:41] LABS: ANION GAP 9 MMOL/L (5-14); BLOOD UREA NITROGEN 8 MG/DL (7-18); BUN/CREATININE RATIO 9; CALCIUM 8.2 MG/DL (8.5-10.1); CARBON DIOXIDE 32 MMOL/L (21-32); CHLORIDE 96 MMOL/L (98-107); CREATININE SERUM 0.85 MG/DL (0.60-1.30); GFR ESTIMATED > 60; GLUCOSE 138 MG/DL (70-105); MAGNESIUM 1.6 MG/DL (1.8-2.4); POTASSIUM 3.5 MMOL/L (3.6-5.0); SODIUM 137 MMOL/L (135-145)
[2017-01-11 06:29] LABS: BASOPHILS % (AUTO) 1 % (0-10); EOSINOPHILS # (AUTO) 0.2 10^3/uL (0.0-0.3); EOSINOPHILS % (AUTO) 4 % (0-10); LYMPHOCYTES # (AUTO) 0.5 X 10^3 (1.0-4.0); LYMPHOCYTES % (AUTO) 13 % (12-44); MEAN CORPUSCULAR HEMOGLOBIN 29 PG (25-34); MEAN CORPUSCULAR HGB CONC 32 G/DL (32-36); MEAN CORPUSCULAR VOLUME 91 FL (80-99); MEAN PLATELET VOLUME 10.1 FL (7.4-10.4); MONOCYTES # (AUTO) 0.5 X 10^3 (0.0-1.0); MONOCYTES % (AUTO) 13 % (0-12); NEUTROPHILS # (AUTO) 2.7 X 10^3 (1.8-7.8); NEUTROPHILS % (AUTO) 70 % (42-75); PLATELET COUNT 77 10^3/uL (130-400); RED BLOOD COUNT 3.51 10^6/uL (4.35-5.85); WHITE BLOOD COUNT 3.8 10^3/uL (4.3-11.0)
[2017-01-11] MEDS: CALCIUM CARBONATE 600 MG (CALCARB) TAB PO SCH (06:36)
[2017-01-11] MEDS: PANTOPRAZOLE 20 MG TABLET (PROTONIX) PO SCH ×2 (06:36→17:58)
--- NOTE | 2017-01-11 08:39 | Progress Note (SOAP) ---
Subjective Date Seen by Provider: Jan 11, 2017 Time Seen by Provider: 08:20 Subjective/Events-last exam PT HAD A NOSE-BLEED LAST NIGHT - HIS NURSE REPORTS THAT HE CONTINUES TO TAKE OFF HIS NASAL COMPRESSION. HIS NURSE REPORTS THAT THEY HAD TO RESTART HIS SITTER DUE TO HIS CONFUSION. HIS SISTER REPORTS THAT SHE ASKED THE STAFF LAST NIGHT TO REPORT TO ME THAT HE WAS HAVING INCREASING CONFUSION. HOWEVER THE NURSING STAFF LAST NIGHT REPORTED THAT HE WAS EXPERIENCING A NOSE- BLEED, BUT NOT ABOUT HIS INCREASE IN CONFUSION. Review of Systems General: Fatigue HEENT: No Head Aches, Other (NOSE BLEED) Pulmonary: No Dyspnea, No Cough Cardiovascular: No: Chest Pain Gastrointestinal: No: Abdominal Pain, Nausea Neurological: Confusion, Weakness Objective Exam Vital Signs Date Time Temp Pulse Resp B/P (MAP) Pulse Ox O2 Delivery O2 Flow Rate FiO2 01/11/17 05:10 97.2 84 18 146/81 94 2.00 01/11/17 02:34 83 01/10/17 22:24 92 1.50 01/10/17 20:00 2.50 01/10/17 17:23 96.0 73 18 115/56 91 2.00 01/10/17 14:48 94 1.50 01/10/17 13:01 97.1 92 16 123/77 91 2.00 01/10/17 10:32 95 1.50 01/10/17 09:45 98.2 01/10/17 09:09 98.2 I & O 01/11/17 06:59 Intake Total 2190 ml Balance 2190 ml Capillary Refill : General Appearance: WD/WN, Mild Distress (CONFUSION) HEENT: PERRL/EOMI Neck: Full Range of Motion, Supple Respiratory: Chest Non Tender, Lungs Clear, Normal Breath Sounds, No Accessory Muscle Use Cardiovascular: Regular Rate, Rhythm, No Edema Gastrointestinal: normal bowel sounds, non tender, soft, no organomegaly, no pulsatile mass Extremity: Normal Capillary Refill, No Pedal Edema Neurologic/Psychiatric: Alert, Oriented x3, No Motor/Sensory Deficits, Normal Mood/Affect Skin: Warm/Dry Lymphatic: No Adenopathy Results Lab Laboratory Tests 01/10/17 08:49: Glucometer 231H 01/10/17 14:16: Glucometer 248H 01/10/17 21:02: Glucometer 231H 01/11/17 05:03: Glucometer 139H 01/11/17 05:05: White Blood Count 3.8L, Red Blood Count 3.51L, Hemoglobin 10.3L, Hematocrit 32L , Mean Corpuscular Volume 91, Mean Corpuscular Hemoglobin 29, Mean Corpuscular Hemoglobin Concent 32, Red Cell Distribution Width 17.0H, Platelet Count 77L, Mean Platelet Volume 10.1, Neutrophils (%) (Auto) 70, Lymphocytes (%) (Auto) 13 , Monocytes (%) (Auto) 13H, Eosinophils (%) (Auto) 4, Basophils (%) (Auto) 1, Neutrophils # (Auto) 2.7, Lymphocytes # (Auto) 0.5L, Monocytes # (Auto) 0.5, Eosinophils # (Auto) 0.2, Basophils # (Auto) 0.0, Sodium Level 137, Potassium Level 3.5L, Chloride Level 96L, Carbon Dioxide Level 32, Anion Gap 9, Blood Urea Nitrogen 8, Creatinine 0.85, Estimat Glomerular Filtration Rate > 60, BUN/ Creatinine Ratio 9, Glucose Level 138H, Calcium Level 8.2L, Magnesium Level 1.6L Assessment/Plan Assessment/Plan Assess & Plan/Chief Complaint HAEMOPHILUS INFLUENZAE SEPSIS NEISSERIA MENINGITIDIS PNEUMONIA HX OF HEPATOCELLULAR CARCINOMA HX OF HEPATITIS C 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 ESOPHAGEAL VARICES WITH TIPS - ABDOMINAL ULTRASOUND REVEALED THAT HIS TIPS IS PATENT COPD - CHRONIC - CONTINUE WITH OXYGEN FOR SUPPORTIVE CARE. HYPOKALEMIA - PT ON REPLACEMENT PROTOCOL PT IMPROVEMENT IN HIS EDEMA - STOPPED IV LASIX, PLACED ON 10MG DAILY OF LASIX BY MOUTH. ANEMIA - SUPPORTIVE CARE. CONFUSION - WORSENING - INCREASE HALDOL TO 1MG PO BID, DOSE OF HALDOL 5MG IV X 1 TODAY. HYPOKALEMIA - IMPROVED. HYPOMAGNESEMIA - GIVE DOSE IV TODAY. NOSE-BLEED - COMPRESSION - GIVE A DOSE OF PLATELETS TODAY. Clinical Quality Measures DVT/VTE Risk/Contraindication: Contraindications-Pharm: Other *list below* BRITTANY RIOS MD Jan 11, 2017 08:39
[2017-01-11] MEDS: MAGNESIUM OXIDE (MAG-OX)400 MG TAB PO SCH ×2 (08:43→21:42)
[2017-01-11] MEDS: KCL 20 MEQ TAB (K-DUR) PO SCH ×2 (08:43→21:41)
[2017-01-11] MEDS: HALOPERIDOL 0.5 MG (HALDOL) TAB PO SCH (08:43)
[2017-01-11] MEDS: LACTULOSE SYRUP 10GM/15ML (ENULOSE) 30ML UDC PO SCH ×2 (08:44→21:42)
[2017-01-11] MEDS: FUROSEMIDE 20 MG (LASIX) TAB PO SCH (08:44)
[2017-01-11] MEDS: RIFAXIMIN 550 MG TABLET (XIFAXAN) PO SCH ×2 (08:47→21:42)
[2017-01-11] MEDS: CEFDINIR 300 MG (OMNICEF) CAP PO SCH ×2 (08:47→21:42)
[2017-01-11] MEDS: HALOPERIDOL 2 MG (HALDOL) TABLET PO SCH ×2 (09:03→21:42)
[2017-01-11 09:29] VITALS: BP 123/58
[2017-01-11] MEDS ORDERED: NS IV 500 ML 500 ML ONE (09:34)
[2017-01-11 10:03] VITALS: BP 131/66
[2017-01-11 11:25] VITALS: BP 112/60
[2017-01-11] MEDS ORDERED: diphenhydrAMINE 50 MG/ML INJ (BENADRYL) ONE (11:54)
[2017-01-11] MEDS ORDERED: diphenhydrAMINE 50 MG/ML INJ (BENADRYL) IM ONE (12:00)
[2017-01-11] MEDS ORDERED: MAGNESIUM 1 GM/100 ML IVPB 200 ML IV ONE (12:54)
[2017-01-11] MEDS: MAGNESIUM 1 GM/100 ML IVPB 100 ML IV SCH ×2 (13:00→14:02)
[2017-01-11] MEDS ORDERED: MAGNESIUM 1 GM/100 ML IVPB 100 ML IV SCH (13:15)
[2017-01-11] MEDS: VENlafaxine XR 75 MG (EFFEXOR XR) CAP PO SCH (14:55)
[2017-01-11 19:28] VITALS: BP 131/77
[2017-01-11] MEDS: VITAMIN D3 1,000 UNITS (CHOLECALCIFEROL) TABLET PO SCH (21:41)
[2017-01-11] MEDS: morphine ER 15 MG (MS CONTIN) TAB PO PRN (21:43)
[2017-01-12] MEDS: RT-ALBUTEROL/IPRATROPIUM 3 ML (DUONEB) VIAL INH SCH ×6 (02:29→22:13)
[2017-01-12] MEDS: HALOPERIDOL 5 MG/ML (HALDOL) AMP IV PRN (03:02)
[2017-01-12 05:15] VITALS: BP 134/81
[2017-01-12 05:20] LABS: MEAN PLATELET VOLUME 9.2 FL (7.4-10.4); RED BLOOD COUNT 3.5 10^6/uL (4.35-5.85); WHITE BLOOD COUNT 4.5 10^3/uL (4.3-11.0)
[2017-01-12 05:40] LABS: ALANINE AMINOTRANSFERASE 21 U/L (0-55); ALBUMIN 2.7 G/DL (3.2-4.5); ANION GAP 12 MMOL/L (5-14); ASPARTATE AMINO TRANSFERASE 32 U/L (5-34); BILIRUBIN,TOTAL 2.9 MG/DL (0.1-1.0); BLOOD UREA NITROGEN 12 MG/DL (7-18); BUN/CREATININE RATIO 14; CALCIUM 8.2 MG/DL (8.5-10.1); CARBON DIOXIDE 32 MMOL/L (21-32); CHLORIDE 93 MMOL/L (98-107); CREATININE SERUM 0.87 MG/DL (0.60-1.30); GFR ESTIMATED > 60; GLUCOSE 145 MG/DL (70-105); SODIUM 137 MMOL/L (135-145); TOTAL PROTEIN 6.9 G/DL (6.4-8.2)
[2017-01-12] MEDS: PANTOPRAZOLE 20 MG TABLET (PROTONIX) PO SCH ×2 (06:30→17:49)
[2017-01-12] MEDS: CALCIUM CARBONATE 600 MG (CALCARB) TAB PO SCH (06:30)
[2017-01-12] MEDS: inSUlin ASPART (NovoLOG) 1 UNIT/0.01 ML (CHARGE PER UNIT) SC SCH ×4 (06:30→19:09)
[2017-01-12] MEDS: LACTULOSE SYRUP 10GM/15ML (ENULOSE) 30ML UDC PO SCH ×2 (08:27→19:52)
[2017-01-12] MEDS: FUROSEMIDE 20 MG (LASIX) TAB PO SCH (08:27)
[2017-01-12] MEDS: KCL 20 MEQ TAB (K-DUR) PO SCH ×2 (08:27→19:53)
[2017-01-12] MEDS: HALOPERIDOL 2 MG (HALDOL) TABLET PO SCH ×2 (08:27→19:53)
[2017-01-12] MEDS: MAGNESIUM OXIDE (MAG-OX)400 MG TAB PO SCH ×2 (08:28→19:53)
[2017-01-12] MEDS: RIFAXIMIN 550 MG TABLET (XIFAXAN) PO SCH ×2 (08:28→19:53)
[2017-01-12] MEDS: CEFDINIR 300 MG (OMNICEF) CAP PO SCH ×2 (08:28→19:53)
--- NOTE | 2017-01-12 09:20 | Progress Note (SOAP) ---
Subjective Date Seen by Provider: Jan 12, 2017 Time Seen by Provider: 09:15 Subjective/Events-last exam PT REPORTS THAT HE IS FEELING A LITTLE BETTER. PT STATES THAT HIS FOOT HURTS A LITTLE, HIS SISTERS ARE WORRIED ABOUT A FRACTURE. HE DENIES DIZZINESS. HIS SENSORIUM IS CLEARED A LITTLE PER HIS SISTERS REPORT. Review of Systems General: Fatigue HEENT: No Head Aches Pulmonary: No Dyspnea, No Cough Cardiovascular: No: Chest Pain, Palpitations Gastrointestinal: No: Abdominal Pain, Diarrhea, Nausea Genitourinary: No Dysuria Musculoskeletal: foot pain (LEFT), leg pain Neurological: Confusion (INTERMITTENT - IMPROVING FROM YESTERDAY - SLEEPY), Weakness Objective Exam Vital Signs Date Time Temp Pulse Resp B/P (MAP) Pulse Ox O2 Delivery O2 Flow Rate FiO2 01/12/17 06:17 86 01/12/17 05:15 97.1 80 20 134/81 90 01/12/17 02:29 92 01/11/17 20:00 3.00 01/11/17 19:28 97.4 82 18 131/77 3.00 01/11/17 18:16 98 2.50 01/11/17 14:22 97 3.00 01/11/17 11:25 89 18 112/60 97 3.00 01/11/17 11:25 97.6 89 18 112/60 97 3.00 01/11/17 10:29 99 3.00 01/11/17 10:03 97.8 75 17 131/66 100 3.00 01/11/17 09:29 97.1 93 18 123/58 97 3.00 I & O 01/12/17 07:00 Intake Total 1230 ml Output Total 250 ml Balance 980 ml Capillary Refill : General Appearance: No Apparent Distress, WD/WN HEENT: PERRL/EOMI Neck: Full Range of Motion, Supple Respiratory: Chest Non Tender, Lungs Clear, Normal Breath Sounds, No Accessory Muscle Use, No Respiratory Distress Cardiovascular: Regular Rate, Rhythm, Normal Peripheral Pulses Gastrointestinal: normal bowel sounds, non tender, soft, no pulsatile mass Extremity: Swelling (LEFT FOOT ON DORSUM - BRUISING LEFT 5TH TOE) Neurologic/Psychiatric: Alert, Oriented x3, No Motor/Sensory Deficits, Normal Mood/Affect, hat and cap parts cutter hand II-XII Norm as Tested Skin: Normal Color, Warm/Dry Lymphatic: No Adenopathy Results Lab Laboratory Tests 01/11/17 12:07: Glucometer 151H 01/11/17 18:01: Glucometer 160H 01/11/17 23:43: Glucometer 217H 01/12/17 05:09: Glucometer 139H 01/12/17 05:15: White Blood Count 4.5, Red Blood Count 3.50L, Hemoglobin 10.3L, Hematocrit 32L, Mean Corpuscular Volume 90, Mean Corpuscular Hemoglobin 29, Mean Corpuscular Hemoglobin Concent 33, Red Cell Distribution Width 17.0H, Platelet Count 104L, Mean Platelet Volume 9.2, Sodium Level 137, Potassium Level 3.0L, Chloride Level 93L, Carbon Dioxide Level 32, Anion Gap 12, Blood Urea Nitrogen 12, Creatinine 0.87, Estimat Glomerular Filtration Rate > 60, BUN/Creatinine Ratio 14, Glucose Level 145H, Calcium Level 8.2L, Total Bilirubin 2.9H, Aspartate Amino Transf (AST/SGOT) 32, Alanine Aminotransferase (ALT/SGPT) 21, Alkaline Phosphatase 77, Total Protein 6.9, Albumin 2.7L Assessment/Plan Assessment/Plan Assess & Plan/Chief Complaint HAEMOPHILUS INFLUENZAE SEPSIS NEISSERIA MENINGITIDIS PNEUMONIA HX OF HEPATOCELLULAR CARCINOMA HX OF HEPATITIS C 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 ESOPHAGEAL VARICES WITH TIPS - ABDOMINAL ULTRASOUND REVEALED THAT HIS TIPS IS PATENT COPD - CHRONIC - CONTINUE WITH CONTINUOUS OXYGEN FOR SUPPORTIVE CARE. HYPOKALEMIA - PT ON REPLACEMENT PROTOCOL PT IMPROVEMENT IN HIS EDEMA - STOPPED IV LASIX, PLACED ON 10MG DAILY OF LASIX BY MOUTH. ANEMIA - SUPPORTIVE CARE. CONFUSION - WORSENING - INCREASE HALDOL TO 1MG PO BID. HYPOKALEMIA - IMPROVED. NOSE-BLEED - RESOLVED. PLANNING ON RETIREMENT TOMORROW - [facility] Clinical Quality Measures DVT/VTE Risk/Contraindication: Contraindications-Pharm: Other *list below* BRITTANY RIOS MD Jan 12, 2017 09:19
[2017-01-12] MEDS ORDERED: KCL 20 MEQ TAB (K-DUR) PO NR (09:46)
--- NOTE | 2017-01-12 09:50 | Pulmonary Progress Note ---
Subjective Subjective/Events-last exam Pt appears to be doing better Exam Exam Vital Signs Date Time Temp Pulse Resp B/P (MAP) Pulse Ox O2 Delivery O2 Flow Rate FiO2 01/12/17 06:17 86 01/12/17 05:15 97.1 80 20 134/81 90 01/12/17 02:29 92 01/11/17 20:00 3.00 01/11/17 19:28 97.4 82 18 131/77 3.00 01/11/17 18:16 98 2.50 01/11/17 14:22 97 3.00 01/11/17 11:25 89 18 112/60 97 3.00 01/11/17 11:25 97.6 89 18 112/60 97 3.00 01/11/17 10:29 99 3.00 01/11/17 10:03 97.8 75 17 131/66 100 3.00 I & O 01/12/17 07:00 Intake Total 1230 ml Output Total 250 ml Balance 980 ml General Appearance: No Apparent Distress, WD/WN HEENT: PERRL/EOMI Neck: Full Range of Motion, Supple Respiratory: Chest Non Tender, Lungs Clear, Normal Breath Sounds, No Accessory Muscle Use Cardiovascular: Regular Rate, Rhythm, No Edema Gastrointestinal: normal bowel sounds, non tender, soft, no organomegaly, no pulsatile mass Extremity: Normal Capillary Refill, No Pedal Edema Neurologic/Psychiatric: Alert, Oriented x3, No Motor/Sensory Deficits, Normal Mood/Affect Skin: Warm/Dry Lymphatic: No Adenopathy Results Lab Laboratory Tests 01/11/17 05:05 01/12/17 05:15 Assessment/Plan Assessment/Plan Atelectasis with hypoxia -IS -oxygen as needed Pneumonia with neisseria meningitidis resolving meningitis -Omnicef 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 Pt will need home oxygen Clinical Quality Measures DVT/VTE Risk/Contraindication: Contraindications-Pharm: Other *list below* OSMAR ADAMES DO Jan 12, 2017 09:50
--- NOTE | 2017-01-12 10:44 | Diagnostic Imaging Report ---
EXAMINATION: Three views of the left ankle. INDICATION: Injury. FINDINGS: No fracture, dislocation, or radiopaque foreign body. The ankle mortise is normal in configuration. IMPRESSION: Negative study. Dictated by: Dictated on workstation # [id number]
--- NOTE | 2017-01-12 10:45 | Diagnostic Imaging Report ---
INDICATION: Left foot injury. FINDINGS: Three views of the left foot show fractures of the base of the proximal phalanx of the fourth and fifth toes. The fracture of the fourth toe is not appreciably displaced. The fifth toe fracture has medial displacement of the distal component with foreshortening. The base of the proximal phalanx remains in normal articulation with the fifth metatarsal. IMPRESSION: Fracture/dislocation of the proximal phalanx of the fifth toe. Nondisplaced fracture of the base of the fourth toe. Dictated by: Dictated on workstation # [id number]
--- NOTE | 2017-01-12 10:49 | Diagnostic Imaging Report ---
EXAMINATION: Three views of the left toes. INDICATION: Fall. FINDINGS: There is an angulated and displaced fracture near the base of the proximal phalanx of the fifth toe. The fracture does not have definite extension into the MTP joint. The displaced shaft is projecting into the soft tissues between the bases of the fourth and fifth toes. The proximal phalanx of the fourth toe demonstrates a deformity also in the proximal aspect of its shaft. This is an age indeterminate nondisplaced fracture. No prior studies to assess chronicity. Correlate with a focal physical exam. There is hallux valgus deformity. IMPRESSION: 1. Acute displaced and angulated fracture of the proximal phalanx of the left fifth toe. 2. Age-indeterminate nondisplaced fracture in the proximal aspect of the proximal phalanx of the fourth left toe. The findings were called to Dr. Lyn by Dr. Peres at the time of dictation. Dictated by: Dictated on workstation # [id number]
--- NOTE | 2017-01-12 10:56 | Physical Therapy Daily Note ---
PT Daily Note-Current Subjective Patient is in bed with family present. Agrees to PT. Pain Numeric Pain Scale: 0-No Pain Location: No Pain Reported Mental Status Patient Orientation: Confused Attachments: Oxygen (2L) Transfers Functional [place] Measure 0=Not Assessed/NA 4=Minimal Assistance 1=Total Assistance 5=Supervision or Setup 2=Maximal Assistance 6=Modified [place] 3=Moderate Assistance 7=Complete IndependenceIRFPAI Quality Coding Scale 6 Independent with activity with or without an assistive device 5 Patient requires set up or clean up by helper. Patient completes activity by themselves 4 Supervision or touching assist (CGA). [place] provide cues , steadying assist 3 The helper provides less than half the effort to complete the activity 2 The helper provides more than half the effort to complete the activity 1 Dependent. The helper does all the effort to complete an activity 7 Patient refused to complete or attempt activity 9 The patient did not perform the activity before the current illness or injury 88 Not attempted due to Medical conditions or safety concerns Transfers (B, C, W/C) (FIM): 5 Scootin Roll Left to Right (QC): 5 Sit to/from Stand: 5 Sit to Lying (QC): 5 Sit to Stand (QC): 5 Chair/Rno-xk-Dezwn Xfer(QC): 5 Gait Training Does the Patient Walk?: Yes Gait (FIM): 4 Distance (FIM): 3=150 ft Distance: 250' x 1; 150' x 1 Walk 50 ft with 2 Turns(QC): 4 Walk 150 ft (QC): 4 Gait Level of Assist: 4 Gait Persons Needed: 1 Gait Assistive Device: FWW continues to be unsafe with FWW with demonstrating extended UE's and body "outside" of FWW with all turns. Skilled verbal instruction, as well as, tactile cues given with patient not following direction. Assessment Patient tolerated treatment well and returned to room in sitting on shower bench with BENCH WORKER BINDING in to assist. PT Die Finisher Goals Die Finisher Goals PT Die Finisher Goals Time Frame: Jan 09, 2017 Transfers (B,C,W/C) (FIM): 5 Sit to Lying (QC): 4 Lying-Sitting on Side/Bed(QC): 4 Sit to Stand (QC): 4 Rollin Gait (FIM): 4 Distance: 150' Walk 50ft with 2 Turns (QC): 4 Walk 150 ft (QC): 4 Gait Level of Assist: 4 (CGA) Gait Assistive Device: FWW PT Plan Treatment/Plan Treatment Plan: Continue Plan of Care, Modify Plan, see comments (Reassessment of skills address and goals remain the same. Patient would benefit from extended care facility for safety from a PT standpoint.) Treatment Plan: Bed Mobility, Education, Functional Activity [place], Functional Strength, Gait, Safety, Therapeutic Exercise, Transfers Treatment Duration: Jan 09, 2017 Visits Per Week: 5-6 Minutes/Day (M-F): 15-30 Minutes/Day (Sat/Chan): 15-30 Safety Risks/Education Patient Education: Safety Issues Teaching Recipient: Patient, Family Teaching Methods: Demonstration, Discussion Response to Teaching: Unable to Return Demonstration, Reinforcement Needed Discharge Recommendations Therapy D/C Recommendations: Jail (TCU/NH) Time/GCodes Time In: 1025 Time Out: 1040 Total Billed Treatment Time: 15 Total Billed Treatment 1 visit GT 15 min UNIQUE CHRISTENSEN PT Jan 12, 2017 10:56
[2017-01-12] MEDS: VENlafaxine XR 75 MG (EFFEXOR XR) CAP PO SCH (12:14)
--- NOTE | 2017-01-12 13:57 | Occupational Ther Daily Note ---
OT Current Status-Daily Note Subjective Pt in bed with sitter present, agrees to treatment. Mental Status/Objective Functional [place] Measure 0=Not Assessed/NA 4=Minimal Assistance 1=Total Assistance 5=Supervision or Setup 2=Maximal Assistance 6=Modified [place] 3=Moderate Assistance 7=Complete [place] ADL-Treatment Pt supine to sit with supervision. Sitter present and states she assisted pt with shower and dressing this morning. States pt was able to complete part of functional tasks, but required assist. Pt completed bilateral UE activity to promote increased strength and activity tolerance needed for functional tasks. Pt performed shoulder flexion and abduction and elbow flex/ext x10-15 reps. Pt requires multiple cues for exercise completion and participation. Pt requires tactile cues for proper exercise technique and activity completion. Increased time required for exercises. Pt states he needs to use restroom. Sit to stand with supervision. Gait to restroom with FWW and CGA for balance. Pt stood at toilet to urinate with SBA. Requires cues to wash hands. Pt washed hands with SBA. Transfer to chair with CGA and cues for walker safety. Pt sitting in chair with needs met and sitter present after session. Functional [place] Measure 0=Not Assessed/NA 4=Minimal Assistance 1=Total Assistance 5=Supervision or Setup 2=Maximal Assistance 6=Modified [place] 3=Moderate Assistance 7=Complete IndependenceIRFPAI Quality Coding Scale 6 Independent with activity with or without an assistive device 5 Patient requires set up or clean up by helper. Patient completes activity by themselves 4 Supervision or touching assist (CGA). [place] provide cues , steadying assist 3 The helper provides less than half the effort to complete the activity 2 The helper provides more than half the effort to complete the activity 1 Dependent. The helper does all the effort to complete an activity 7 Patient refused to complete or attempt activity 9 The patient did not perform the activity before the current illness or injury 88 Not attempted due to Medical conditions or safety concerns Toileting (FIM): 5 Toileting Hygiene (QC): 4 OT Short Term Goals Short Term Goals 1=Demonstrate adherence to instructed precautions during ADL tasks. 2=Patient will verbalize/demonstrate understanding of assistive devices/ modifications for ADL. 3=Patient will improve strength/tolerance for activity to enable patient to perform ADL's. OT Manager Strategic Marketing Goals Manager Strategic Marketing Goals Time Frame: Jan 23, 2017 Eating (FIM): 6 Eating (QC): 6 Groomin Oral Hygiene (QC): 6 Upper Body Dressing(FIM): 5 Lower Body Dressing(FIM): 4 Toileting(FIM): 5 Toileting Hygiene (QC): 5 Toilet/Commode Transfer(FIM): 5 Toilet/Commode Transfer (QC): 5 Additional Goals: 1-Demonstrate ADL Tasks, 2-Verbalize Understanding, 3- ImproveStrength/Court 1=Demonstrate adherence to instructed precautions during ADL tasks. 2=Patient will verbalize/demonstrate understanding of assistive devices/ modifications for ADL. 3=Patient will improve strength/tolerance for activity to enable patient to perform ADL's. OT Education/Plan Problem List/Assessment Pt to benefit from skilled OT intervention for ADL training, transfers, strengthening, and safety education to maximize level of function and allow safe discharge plan. Discharge Recommendations Plan/Recommendations: Continue POC Treatment Plan/Plan of Care Patient would benefit from OT for education, treatment and training to promote independence in ADL's, mobility, safety and/or upper extremity function for ADL' s. Plan of Care: ADL Retraining, Functional Mobility, UE Funct Exercise/Act Treatment Duration: Jan 23, 2017 Visits Per Week: 5 Agreement: Yes Rehab Potential: Poor Time/GCodes Start Time: 13:22 Stop Time: 13:43 Total Time Billed (hr/min): 21 Billed Treatment Time 1 visit, EX(21minutes) JOHNNY NGUYEN OT Jan 12, 2017 13:57
[2017-01-12] MEDS: morphine ER 15 MG (MS CONTIN) TAB PO PRN (17:50)
[2017-01-12 18:25] VITALS: BP 116/65
[2017-01-12] MEDS: VITAMIN D3 1,000 UNITS (CHOLECALCIFEROL) TABLET PO SCH (19:53)
[2017-01-13] MEDS: RT-ALBUTEROL/IPRATROPIUM 3 ML (DUONEB) VIAL INH SCH ×6 (02:42→22:06)
[2017-01-13 05:01] VITALS: BP 122/60
[2017-01-13] MEDS: inSUlin ASPART (NovoLOG) 1 UNIT/0.01 ML (CHARGE PER UNIT) SC SCH ×4 (05:40→20:44)
[2017-01-13] MEDS: PANTOPRAZOLE 20 MG TABLET (PROTONIX) PO SCH ×4 (06:18→16:42)
[2017-01-13] MEDS: CALCIUM CARBONATE 600 MG (CALCARB) TAB PO SCH ×3 (06:18→06:41)
[2017-01-13] MEDS: LACTULOSE SYRUP 10GM/15ML (ENULOSE) 30ML UDC PO SCH ×2 (09:15→20:44)
[2017-01-13] MEDS: HALOPERIDOL 2 MG (HALDOL) TABLET PO SCH ×2 (09:16→20:44)
[2017-01-13] MEDS: MAGNESIUM OXIDE (MAG-OX)400 MG TAB PO SCH ×2 (09:18→20:44)
[2017-01-13] MEDS: CEFDINIR 300 MG (OMNICEF) CAP PO SCH (09:18)
[2017-01-13] MEDS: FUROSEMIDE 20 MG (LASIX) TAB PO SCH (09:18)
[2017-01-13] MEDS: KCL 20 MEQ TAB (K-DUR) PO SCH ×2 (09:18→20:44)
[2017-01-13] MEDS: RIFAXIMIN 550 MG TABLET (XIFAXAN) PO SCH ×2 (09:18→20:44)
--- NOTE | 2017-01-13 09:26 | Progress Note (SOAP) ---
Objective Exam Vital Signs Date Time Temp Pulse Resp B/P (MAP) Pulse Ox O2 Delivery O2 Flow Rate FiO2 01/13/17 06:57 91 01/13/17 05:01 98.5 92 22 122/60 95 1.00 01/13/17 02:42 90 1.00 01/12/17 22:13 91 1.00 01/12/17 19:50 1.00 01/12/17 18:57 97 1.00 01/12/17 18:25 97.2 77 20 116/65 98 01/12/17 15:06 96 1.00 01/12/17 10:23 94 1.00 I & O 01/13/17 07:00 Intake Total 2084 ml Balance 2084 ml Capillary Refill : Results Lab Laboratory Tests 01/12/17 10:13: Glucometer 226H 01/12/17 12:39: Lab Scanned Report Transfusion Reaction Form 01/12/17 14:25: Glucometer 223H 01/12/17 19:05: Glucometer 266H 01/13/17 05:13: Glucometer 194H Assessment/Plan Assessment/Plan Assess & Plan/Chief Complaint HAEMOPHILUS INFLUENZAE SEPSIS NEISSERIA MENINGITIDIS PNEUMONIA HX OF HEPATOCELLULAR CARCINOMA HX OF HEPATITIS C 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 ESOPHAGEAL VARICES WITH TIPS - ABDOMINAL ULTRASOUND REVEALED THAT HIS TIPS IS PATENT COPD - CHRONIC - CONTINUE WITH CONTINUOUS OXYGEN FOR SUPPORTIVE CARE. HYPOKALEMIA - PT ON REPLACEMENT PROTOCOL PT IMPROVEMENT IN HIS EDEMA - STOPPED IV LASIX, PLACED ON 10MG DAILY OF LASIX BY MOUTH. ANEMIA - SUPPORTIVE CARE. CONFUSION - WORSENING - INCREASE HALDOL TO 1MG PO BID. HYPOKALEMIA - IMPROVED. NOSE-BLEED - RESOLVED. PLANNING ON DETENTION TOMORROW - [facility] TOM[facility]ROW Clinical Quality Measures DVT/VTE Risk/Contraindication: Contraindications-Pharm: Other *list below* BRITTANY RIOS MD Jan 13, 2017 09:26
--- NOTE | 2017-01-13 10:30 | Physical Therapy Daily Note ---
PT Daily Note-Current Subjective Patient initially declined PT, however, after encouragement, patient agrees. Pain Numeric Pain Scale: 0-No Pain Location: No Pain Reported Mental Status Patient Orientation: Confused Attachments: Oxygen Transfers Functional [place] Measure 0=Not Assessed/NA 4=Minimal Assistance 1=Total Assistance 5=Supervision or Setup 2=Maximal Assistance 6=Modified [place] 3=Moderate Assistance 7=Complete IndependenceIRFPAI Quality Coding Scale 6 Independent with activity with or without an assistive device 5 Patient requires set up or clean up by helper. Patient completes activity by themselves 4 Supervision or touching assist (CGA). [place] provide cues , steadying assist 3 The helper provides less than half the effort to complete the activity 2 The helper provides more than half the effort to complete the activity 1 Dependent. The helper does all the effort to complete an activity 7 Patient refused to complete or attempt activity 9 The patient did not perform the activity before the current illness or injury 88 Not attempted due to Medical conditions or safety concerns Transfers (B, C, W/C) (FIM): 5 Scootin Roll Left to Right (QC): 5 Supine to/from Sit: 5 Sit to/from Stand: 5 Sit to Lying (QC): 5 Sit to Stand (QC): 5 Gait Training Does the Patient Walk?: Yes Gait (FIM): 5 Distance (FIM): 3=150 ft Distance: >600' Walk 50 ft with 2 Turns(QC): 5 Walk 150 ft (QC): 5 Gait Level of Assist: 5 Gait Persons Needed: 1 Gait Assistive Device: FWW functional with FWW; patient required redirection to remain on task x 2 and for FWW use with demonstration of extended UE's and unsafe body position with turns. Assessment Patient returned to bed with bed alarm activated. Family present. PT Doping Supervisor Goals Shelter Goals PT Shelter Goals Time Frame: Jan 09, 2017 Transfers (B,C,W/C) (FIM): 5 Sit to Lying (QC): 4 Lying-Sitting on Side/Bed(QC): 4 Sit to Stand (QC): 4 Rollin Gait (FIM): 4 Distance: 150' Walk 50ft with 2 Turns (QC): 4 Walk 150 ft (QC): 4 Gait Level of Assist: 4 (CGA) Gait Assistive Device: FWW PT Plan Treatment/Plan Treatment Plan: Continue Plan of Care Treatment Plan: Bed Mobility, Education, Functional Activity Court, Functional Strength, Gait, Safety, Therapeutic Exercise, Transfers Treatment Duration: Jan 09, 2017 Visits Per Week: 5-6 Minutes/Day (M-F): 15-30 Minutes/Day (Sat/Chan): 15-30 Time/GCodes Time In: 1006 Time Out: 1021 Total Billed Treatment Time: 15 Total Billed Treatment 1 visit FA 15 min UNIQUE CHRISTENSEN PT Jan 13, 2017 10:30
--- NOTE | 2017-01-13 11:45 | Occupational Ther Daily Note ---
OT Current Status-Daily Note Subjective Pt sleeping in bed. Family present in room. Pt woke to name. Pt initially declined therapy then with encouragement from family pt agreed to therapy. Mental Status/Objective Patient Orientation: Person, Place, Time, Situation Functional [place] Measure 0=Not Assessed/NA 4=Minimal Assistance 1=Total Assistance 5=Supervision or Setup 2=Maximal Assistance 6=Modified [place] 3=Moderate Assistance 7=Complete [place] Attachments: IV ADL-Treatment When handed a washcloth pt able to grasp and bring to face to wash face. Pt then was able to use oral swab to cleanse mouth. Then requested to use bathroom. Using FWW pt able to ambulate into bathroom with CGA. Pt stood at toilet and urinated. Pt able to manipulate clothing and cleanse self with SBA then ambulated to sink to wash hands. Then ambulated to room by holding FWW up off of floor, no LOB. Pt sat on EOB, CARRERA and family offered for pt to sit up for lunch, pt declined. Pt was able to lay down in bed without assistance. [facility] to pt and family. Call light/phone in reach. All needs met in room. Functional [place] Measure 0=Not Assessed/NA 4=Minimal Assistance 1=Total Assistance 5=Supervision or Setup 2=Maximal Assistance 6=Modified [place] 3=Moderate Assistance 7=Complete IndependenceIRFPAI Quality Coding Scale 6 Independent with activity with or without an assistive device 5 Patient requires set up or clean up by helper. Patient completes activity by themselves 4 Supervision or touching assist (CGA). [place] provide cues , steadying assist 3 The helper provides less than half the effort to complete the activity 2 The helper provides more than half the effort to complete the activity 1 Dependent. The helper does all the effort to complete an activity 7 Patient refused to complete or attempt activity 9 The patient did not perform the activity before the current illness or injury 88 Not attempted due to Medical conditions or safety concerns Grooming (FIM): 5 Oral Hygiene (QC): 4 Toileting (FIM): 4 Toileting Hygiene (QC): 3 Toilet/Commode Transfer (FIM): 4 OT Short Term Goals Short Term Goals 1=Demonstrate adherence to instructed precautions during ADL tasks. 2=Patient will verbalize/demonstrate understanding of assistive devices/ modifications for ADL. 3=Patient will improve strength/tolerance for activity to enable patient to perform ADL's. 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 2=Patient will verbalize/demonstrate understanding of assistive devices/ modifications for ADL. 3=Patient will improve strength/tolerance for activity to enable patient to perform ADL's. OT Education/Plan Problem List/Assessment Pt to benefit from skilled OT intervention for ADL training, transfers, strengthening, and safety education to maximize level of function and allow safe discharge plan. Discharge Recommendations Plan/Recommendations: Continue POC Treatment Plan/Plan of Care Patient would benefit from OT for education, treatment and training to promote independence in ADL's, mobility, safety and/or upper extremity function for ADL' s. Plan of Care: ADL Retraining, Functional Mobility, UE Funct Exercise/Act Treatment Duration: Jan 23, 2017 Visits Per Week: 5 Agreement: Yes Rehab Potential: Poor Time/GCodes Start Time: 11:20 Stop Time: 11:35 Total Time Billed (hr/min): 15 Billed Treatment Time 1 visit-FA 1 (15 min) LINH MORRIS Jan 13, 2017 11:45
[2017-01-13] MEDS: VENlafaxine XR 75 MG (EFFEXOR XR) CAP PO SCH (12:14)
[2017-01-13 18:53] VITALS: BP 111/53
[2017-01-13] MEDS: morphine ER 15 MG (MS CONTIN) TAB PO PRN (18:59)
[2017-01-13] MEDS: VITAMIN D3 1,000 UNITS (CHOLECALCIFEROL) TABLET PO SCH (20:43)
[2017-01-14] MEDS: morphine INJ 4 MG/ML 1 ML (VIAL/SYRINGE) IVP PRN (00:44)
[2017-01-14] MEDS: RT-ALBUTEROL/IPRATROPIUM 3 ML (DUONEB) VIAL INH SCH ×3 (02:12→11:24)
[2017-01-14 05:22] VITALS: BP 134/74
[2017-01-14] MEDS: inSUlin ASPART (NovoLOG) 1 UNIT/0.01 ML (CHARGE PER UNIT) SC SCH ×2 (06:08→11:23)
[2017-01-14] MEDS: PANTOPRAZOLE 20 MG TABLET (PROTONIX) PO SCH (06:08)
[2017-01-14] MEDS: CALCIUM CARBONATE 600 MG (CALCARB) TAB PO SCH (06:08)
[2017-01-14] MEDS: morphine ER 15 MG (MS CONTIN) TAB PO PRN (06:12)
[2017-01-14] MEDS ORDERED: MAGN400T6 PO (08:24)
[2017-01-14] MEDS ORDERED: HALO2TAB PO (08:24)
[2017-01-14] MEDS ORDERED: INSU100I10 SQ (08:24)
[2017-01-14] MEDS ORDERED: IPRA3AMP INH (08:24)
[2017-01-14] MEDS ORDERED: POTA20TA8 PO (08:24)
[2017-01-14] MEDS ORDERED: NEBU-113 MC (08:24)
--- NOTE | 2017-01-14 08:26 | Discharge Summary ---
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 ESOPHAGEAL VARICES WITH TIPS - ABDOMINAL ULTRASOUND REVEALED THAT HIS TIPS IS PATENT COPD - CHRONIC - CONTINUE WITH OXYGEN FOR SUPPORTIVE CARE. HYPOKALEMIA - PT ON REPLACEMENT PROTOCOL PT WITH SIGNIFICANT PERSISTENT EDEMA UP TO ABDOMEN - GIVE 40MG LASIX THIS MORNING. - MONITOR OUTPUT ANEMIA - SUPPORTIVE CARE. PT HAD ANGELES IN PLACE, IT WAS ORDERED TO BE REMOVED BY ONE OF THE CONSULTING PHYSICIANS - THE PATIENT CONTINUES TO NEED A CATHETER I HAVE RESTARTED A ANGELES CATHETER - NEEDS TO REMAIN UNTIL PATIENT'S SENSORIUM CLEARS STOPPED REGLAN, MIRTAZAPINE, GLIMEPIRIDE MONITOR SYMPTOMS OF CONFUSION. Reason Hospital Visit PT IS A 61 Y/O MALE WHO IS KNOWN TO ME FROM CLINIC. HE HAS HISTORY OF HEPATITIS C, HISTORY OF HEPATOCELLUAR CARCINOMA. 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 PT IS CONFUSED, INTERMITTENT DELIRIUM, AND AT THIS TIME HE IS FEELING WEAK AND INTERMITTENTLY CONFUSED BUT HAS PERIODS OF CLEARING OF HIS SENSORIUM WHEN DIRECTLY QUESTIONED THIS MORNING, CORDELIA WAS ABLE TO STATE THAT HE WAS AT [facility]. Discharge Summary Discharge Physical Examination Allergies: Coded Allergies: midazolam (Verified Adverse Reaction, Unknown, 12/27/16) BEHAVORIAL Vitals & I&Os Vital Signs Date Time Temp Pulse Resp B/P (MAP) Pulse Ox O2 Delivery O2 Flow Rate FiO2 01/14/17 06:59 2.00 01/14/17 05:22 97.3 80 18 134/74 98 Hospital Course Pending Labs Laboratory Tests 01/14/17 05:26: Glucometer 137 Discharge Instructions to patient/family Please see electonic discharge instructions given to patient. Discharge Medications Reviewed and agree with Discharge Medication list on patient's Discharge Instruction sheet Clinical Quality Measures DVT/VTE Risk/Contraindication: Contraindications-Pharm: Other *list below* BRITTANY RIOS MD Jan 14, 2017 08:25
[2017-01-14] MEDS: FUROSEMIDE 20 MG (LASIX) TAB PO SCH (08:45)
[2017-01-14] MEDS: LACTULOSE SYRUP 10GM/15ML (ENULOSE) 30ML UDC PO SCH (08:45)
[2017-01-14] MEDS: HALOPERIDOL 2 MG (HALDOL) TABLET PO SCH (08:45)
[2017-01-14] MEDS: KCL 20 MEQ TAB (K-DUR) PO SCH (08:45)
[2017-01-14] MEDS: RIFAXIMIN 550 MG TABLET (XIFAXAN) PO SCH (08:46)
[2017-01-14] MEDS: MAGNESIUM OXIDE (MAG-OX)400 MG TAB PO SCH (08:46)
--- NOTE | 2017-01-14 09:31 | Therapy Team Discharge Summary ---
Therapy Discharge Summary Discharge Recommendations Date of Discharge Therapy D/C Recommendations: Usp (TCU/NH) Physical Therapy Patient was admitted to swing bed with hepatic encephalopathy, weakness, confusion, pneumonia. Upon evaluation patient performed bed mobility and transfers with CGA/Jessi, ambulated 60' with a rolling walker with Jessi of 2, had very poor balance and confusion. Patient has been performing bed mobility and transfer training, balance and endurance training, functional strengthening , gait training, and education. Patient has made fair progress and has met all of his adjunct faculty for medical terminology goals. Now, patient performs bed mobility and transfers with SBA, and ambulates at least 600' with a rolling walker with SBA but still has safety issues. Patient is being discharged from this facility today and will be discharged from PT at this time. PT Roller Checker Goals Roller Checker Goals PT Roller Checker Goals Time Frame: Jan 09, 2017 Transfers (B,C,W/C) (FIM): 5 Sit to Lying (QC): 4 Lying-Sitting on Side/Bed(QC): 4 Sit to Stand (QC): 4 Rollin Gait (FIM): 4 Distance: 150' Walk 50ft with 2 Turns (QC): 4 Walk 150 ft (QC): 4 Gait Level of Assist: 4 (CGA) Gait Assistive Device: FWW OT Roller Checker Goals Roller Checker Goals Time Frame: Jan 23, 2017 Eating (FIM): 6 Eating (QC): 6 Groomin Oral Hygiene (QC): 6 Upper Body Dressing(FIM): 5 Lower Body Dressing(FIM): 4 Toileting(FIM): 5 Toileting Hygiene (QC): 5 Toilet/Commode Transfer(FIM): 5 Toilet/Commode Transfer (QC): 5 Additional Goals: 1-Demonstrate ADL Tasks, 2-Verbalize Understanding, 3- ImproveStrength/Court 1=Demonstrate adherence to instructed precautions during ADL tasks. 2=Patient will verbalize/demonstrate understanding of assistive devices/ modifications for ADL. 3=Patient will improve strength/tolerance for activity to enable patient to perform ADL's. BRYON MILLS PT Jan 14, 2017 09:31
[2017-01-14] MEDS: VENlafaxine XR 75 MG (EFFEXOR XR) CAP PO SCH (11:13)
--- NOTE | 2017-01-14 11:41 | Therapy Team Discharge Summary ---
Therapy Discharge Summary Discharge Recommendations Date of Discharge Jan 14, 2017 at 11:35 Therapy D/C Recommendations: Long Term (TCU/NH) Occupational Therapy Pt admitted to [facility] status following acute hospitalization for hepatic encephalopathy, weakness, confusion, and pneumonia. On admission pt was able to complete grooming with SBA. Pt impulsive with functional tasks and requires direction and cues for safety. Pt participated in therapy with encouragement. Skilled OT intervention focused on ADL training, transfers, and strengthening. By discharge pt is able to complete grooming with SBA, and toileting and toilet transfers with minimal assistance. Pt did not meet OT LTG. Pt is discharging to [facility] this date for continued care. D/C SWB OT at this time. PT Supervisor Shuttle Veneering Goals Longterm Goals PT Supervisor Shuttle Veneering Goals Time Frame: Jan 09, 2017 Transfers (B,C,W/C) (FIM): 5 Sit to Lying (QC): 4 Lying-Sitting on Side/Bed(QC): 4 Sit to Stand (QC): 4 Rollin Gait (FIM): 4 Distance: 150' Walk 50ft with 2 Turns (QC): 4 Walk 150 ft (QC): 4 Gait Level of Assist: 4 (CGA) Gait Assistive Device: FWW OT Supervisor Shuttle Veneering Goals Supervisor Shuttle Veneering Goals Time Frame: Jan 23, 2017 Eating (FIM): 6 Eating (QC): 6 Groomin Oral Hygiene (QC): 6 Upper Body Dressing(FIM): 5 Lower Body Dressing(FIM): 4 Toileting(FIM): 5 Toileting Hygiene (QC): 5 Toilet/Commode Transfer(FIM): 5 Toilet/Commode Transfer (QC): 5 Additional Goals: 1-Demonstrate ADL Tasks, 2-Verbalize Understanding, 3- ImproveStrength/Court 1=Demonstrate adherence to instructed precautions during ADL tasks. 2=Patient will verbalize/demonstrate understanding of assistive devices/ modifications for ADL. 3=Patient will improve strength/tolerance for activity to enable patient to perform ADL's. JOHNNY NGUYEN OT Jan 14, 2017 11:41
== END 2017-01-14 11:35 | DRG 871 ==
LOC: 4TH 10:03 → ENPENDDIS 01-14 09:30
PROVIDERS: ADMIT Family Medicine; ATTEND Family Medicine
DX: A41.3 Sepsis due to Hemophilus influenzae (principal); J96.00 Acute respiratory failure, unspecified whether with hypoxia or hypercapnia; K72.90 Hepatic failure, unspecified without coma; C22.0 Liver cell carcinoma; J44.0 Chronic obstructive pulmonary disease with (acute) lower respiratory infection; A39.0 Meningococcal meningitis; Z66 Do not resuscitate; F05 Delirium due to known physiological condition; I85.10 Secondary esophageal varices without bleeding; J98.11 Atelectasis; F23 Brief psychotic disorder; B19.20 Unspecified viral hepatitis C without hepatic coma; E83.52 Hypercalcemia; E87.6 Hypokalemia; K74.60 Unspecified cirrhosis of liver; E86.0 Dehydration; D69.6 Thrombocytopenia, unspecified; E11.9 Type 2 diabetes mellitus without complications; R41.3 Other amnesia; K21.9 Gastro-esophageal reflux disease without esophagitis; M54.2 Cervicalgia; D64.9 Anemia, unspecified; R60.0 Localized edema; T38.0X5A Adverse effect of glucocorticoids and synthetic analogues, initial encounter; Z87.891 Personal history of nicotine dependence; Z91.14 Patient's other noncompliance with medication regimen; Z79.4 Long term (current) use of insulin; R04.0 Epistaxis
CPT/HCPCS: 36415; 71010; 71020; 73610; 73630; 73660; 80048; 80053; 82140; 82962; 83735; 85025; 85027; 86850; 86900; 86901; 94640; 94664; 94760

== ENCOUNTER → 2017-06-08 | Outpatient (CLI) | payer MEDICARE, MEDICAID ==
[~2017-06-08] MED LIST changes: +HALO2TAB PO; +INSU100I10 SQ; +MAGN400T6 PO; +NEBU-113 MC; +POTA20TA8 PO
--- NOTE | 2017-06-08 13:36 | Diagnostic Imaging Report ---
INDICATION: Cirrhosis of the liver, history of TIPS procedure. Ultrasound of the right upper quadrant as well as TIPS Doppler study performed with color flow Doppler and waveform analysis. Comparison made to 12/26/2016. The liver shows a heterogeneous echo pattern compatible with known history of cirrhosis. There is no ascites. There is no focal liver lesion. Hepatic veins are patent. The TIPS shunt is patent with approximate diameter of 1.1 cm. Velocity of 169 cm/s in the mid shunt was obtained which is similar to the previous velocity on 12/26/2016. Velocities in the portal vein and and hepatic vein and are decreased, with velocity in the TIPS shunt near the portal vein end of 72 cm/s and in the hepatic vein end of 88 cm/s. IMPRESSION: Patent TIPS shunt with velocities similar to the previous study of 12/26/2016. There is no ascites. Dictated by: Dictated on workstation # [id number]
== END ==
LOC: RAD 08:07
PROVIDERS: ATTEND Nurse Practitioner Adult Health
DX: K74.60 Unspecified cirrhosis of liver (principal); Z95.828 Presence of other vascular implants and grafts
CPT/HCPCS: 93975

== ENCOUNTER → 2017-06-08 | Outpatient (CLI) | payer MEDICARE, MEDICAID ==
[~2017-06-08] MED LIST changes: +CATHETER FLUSH 10 ML SYR IV PRN; +IOHEXOL 350 MG/ML 100 ML (OMNIPAQUE 350) VIAL IV ONE; +NS 100 ML (IVPB) BAG IV ONE
--- NOTE | 2017-06-08 10:50 | Diagnostic Imaging Report ---
PROCEDURE: CT abdomen and pelvis with and without contrast. TECHNIQUE: Precontrast acquisitions were acquired through the abdomen and pelvis. Multiple contiguous axial images were obtained through the abdomen and pelvis after the administration of intravenous contrast. INDICATION: Cirrhosis of the liver without ascites. 100 mL of Omnipaque 350 is administered intravenously. COMPARISON: Comparison study of 12/18/2016 is reviewed. FINDINGS: There is a hypodense mass measuring 3.5 x 3.1 cm in the upper aspect of the left hepatic lobe compared to 4.6 x 3.7 cm on 12/18/2016 with a hyperdense component. This is probably a post therapeutic change related to prior tumor ablation. There is significant dilatation of the bile ducts without significant worsening seen. There is a poorly defined density similar to the surrounding liver on this exam with rough measurements of 2.5 x 1.6 cm and craniocaudal extension of about 2 cm in the central aspect of the liver probably relating to the obstruction. Exact measurements are difficult and this is hard to compare accurately with 12/18/2016. This is in part related to the beam hardening artifacts from the coils in the upper abdominal varices. Future followup exams with liver mass protocol technique would be helpful. Another poorly defined mass measuring 2.2 cm is seen in the inferior aspect of the right hepatic lobe laterally. The TIPS stent demonstrates increased luminal density suggestive of patency, measuring 16.8 cm craniocaudally. The liver contour demonstrates nodularity compatible with cirrhosis. The gallbladder demonstrates no calcified stones. The pancreas and the adrenal glands appear unremarkable. The kidneys have symmetric enhancement and contrast excretion. There is no hydronephrosis. No kidney stones are seen on the unenhanced phase. There is no ascites. The abdominal aorta is normal in caliber. No para-aortic significantly enlarged lymph node is seen. The appendix is normal. No bowel obstruction. There is moderate amounts of fecal material in the colon however. The osseous structures demonstrate a compression fracture of L1 vertebral body unchanged from the previous exam. IMPRESSION: 1. There is significant intrahepatic biliary dilatation with suspected poorly defined central hepatic mass demonstrating no definite change from the previous study. 2. Another mass in the inferior aspect of the right hepatic lobe about 2.2 cm in size is stable. 3. A 3.5 cm mass in the upper aspect of the left hepatic lobe is slightly smaller in size, with internal hyperdensity likely related to prior ablation. 4. The TIPS stent appears to be patent. No ascites. Dictated by: Dictated on workstation # [id number]
== END ==
LOC: RAD 08:09
PROVIDERS: ATTEND Family Medicine
DX: R16.0 Hepatomegaly, not elsewhere classified (principal)
CPT/HCPCS: 74178

== ENCOUNTER → 2017-09-28 | Outpatient (CLI) | payer MEDICARE, MEDICAID ==
[~2017-09-28] MED LIST changes: +AZIT250T12 PO; -AZIT250T5 PO; -NCT14P TD; +NICO-587 TD
--- NOTE | 2017-09-28 12:28 | Diagnostic Imaging Report ---
PROCEDURE: CT abdomen and pelvis with contrast. TECHNIQUE: Multiple contiguous axial images were obtained through the abdomen and pelvis after administration of intravenous contrast. INDICATION: End-stage liver disease. Hepatocellular carcinoma. COMPARISON: 06/08/2017 FINDINGS: Included portions of lung bases show 7 mm micronodule within the posterior left base. This has increased in size when compared to 3 mm previously (image 16, series 2 compared to image 10, series 3). Pleural-based nodular density is also seen within the lateral margins of the right lower lobe and measures approximately 1.1 cm in diameter. This too is increased in size compared to approximately [address] abdomen: Liver demonstrates cirrhotic external contour. Patient is status post previous placement of transjugular intrahepatic portosystemic shunt. Patency of the shunt is not well evaluated on this exam. Multiple metallic coils are also noted within the central upper abdomen. As a result, there is obscuration of evaluation of the hepatic parenchyma secondary to metallic beam hardening artifact. Note is made, however, of moderate intrahepatic biliary ductal dilatation primarily involving the left lobe and the anterior segment of the right lobe of the liver. There is an ill-defined hypodensity within segment 2 of the liver that measures 3 x 3.5 cm. This is stable when compared to similar re-measurements on the prior exam of 3.5 x 3.1 cm. There is a second hypodensity noted within segment 4A of the liver that measures 2.9 x 3.5 cm. This is minimally changed compared to 3.2 x 2.7 cm on prior exam. Margins of the lesions, however, are suboptimally demonstrated secondary to metallic beam hardening artifact. The kidneys, adrenal glands, and pancreas have a normal CT appearance. There is splenomegaly consistent with underlying portal venous hypertension. No focal splenic lesions are identified. Small bowel loops are nondistended. Normal appendix cannot be adequately identified, but there is no pericecal inflammation. There is a large amount of air and stool scattered throughout the colon. There is no loculated fluid collection, free fluid, nor free air within the abdomen. No abnormal mesenteric or retroperitoneal adenopathy is seen. There is moderate calcified aortic and arterial atherosclerosis. Bony structures showed no acute abnormalities. CT pelvis: Urinary bladder is grossly unremarkable. There is no loculated fluid collection, free fluid, nor free air within the pelvis. No abnormal lymph nodes are seen. Bony structures show no acute abnormalities. IMPRESSION: 1. Small nodule within the included portions of the right lower lobe and smaller micronodule within the left lower lobe. These show interval increase in size when compared to prior exam and are concerning for progressing metastatic disease. 2. Indwelling intrahepatic portosystemic shunt. Again, patency of the shunt is suboptimally evaluated. Correlation with Doppler exam is recommended. 3. Persistent intrahepatic biliary ductal dilatation. This is felt to most likely be related to obstructive central mass. 4. Additional hypodense hepatic masses within the left lobe of the liver as described above. 5. Large amount of colonic air and stool. Please correlate for constipation. Dictated by: Dictated on workstation # [id number]
== END ==
LOC: RAD 11:00
PROVIDERS: ATTEND Nurse Practitioner Adult Health
DX: C22.0 Liver cell carcinoma (principal); K72.90 Hepatic failure, unspecified without coma; K83.8 Other specified diseases of biliary tract; R91.8 Other nonspecific abnormal finding of lung field; Z96.89 Presence of other specified functional implants
CPT/HCPCS: 74177

== ENCOUNTER → 2017-11-25 | Outpatient (CLI) | payer MEDICARE, MEDICAID ==
[~2017-11-25] MED LIST changes: -CATHETER FLUSH 10 ML SYR IV PRN; -IOHEXOL 350 MG/ML 100 ML (OMNIPAQUE 350) VIAL IV ONE; -IPRA3AMP INH; +IPRA3AMP31 INH; -NS 100 ML (IVPB) BAG IV ONE; -SPIR50TA2 PO; +SPIR50TA4 PO; +TRAZ-189 PO; -TRAZ-28 PO
--- NOTE | 2017-11-25 13:40 | Diagnostic Imaging Report ---
PROCEDURE: CT chest without contrast. TECHNIQUE: Multiple contiguous axial images were obtained through the chest without the use of intravenous contrast. INDICATION: End-stage liver disease with history of hepatocellular carcinoma. Further evaluation of pulmonary nodule seen on CT abdomen. COMPARISON: CT abdomen and pelvis from 09/28/17. Most recent CT chest is 05/28/15. FINDINGS: Lungs and airway: No endoluminal nodule within the trachea. There are scattered bilateral solid pulmonary nodules. The largest is in the superior segment of the right lower lobe and measures 2.0 x 2.0 cm. A few of the other larger nodules include the followin.9 cm right upper lobe pulmonary nodule, 0.9 cm left upper lobe pulmonary nodule, 1.4 cm anterior right upper lobe pulmonary nodule and a 0.8 cm left lower lobe pulmonary nodule. No pulmonic consolidation. Centrilobular emphysema is present. Pleura: No pleural effusion or pneumothorax. Heart and mediastinum: No supraclavicular or axillary lymphadenopathy. No mediastinal, discrete hilar or juxtaphrenic lymphadenopathy. Heart is normal in size and without pericardial effusion. Normal-caliber thoracic aorta. Upper abdomen: Abnormalities within the liver are more completely evaluated on recent CT and the mass in the left hepatic lobe is not well seen without contrast. Diffuse intrahepatic biliary duct dilatation is unchanged. TIPS stent graft is present. Musculoskeletal: No concerning focal osseous lesions. IMPRESSION: 1. A few scattered bilateral pulmonary nodules range in size from approximately 1-2 cm. Given known hepatocellular disease, these are most likely due to metastases; however, the patient also has emphysema and this raises the possibility of primary lung cancer. All of these pulmonary nodules are new since 2015 examination. 2. Please see CT abdomen and pelvis report from 09/28/17 for the extensive abnormalities throughout the liver. Dictated by: Dictated on workstation # [id number]
--- NOTE | 2017-11-25 14:42 | Diagnostic Imaging Report ---
PROCEDURE: US Doppler abdominal, complete. TECHNIQUE: Spectral and color flow Doppler imaging was performed of the abdomen. INDICATION: Liver disease. COMPARISON: 06/08/2017. FINDINGS: The liver is at the upper limits of normal in size at 17.6 cm. No discrete liver mass is identified sonographically. There does appear to be intrahepatic biliary ductal dilatation. The patient does have an indwelling TIPS which appears to be patent. The TIPS velocities appear to be stable. The velocity at the portal venous end of the TIPS is 0.9 m/s compared with 1.2 m/s. The mid stent velocity is 1.3 m/s compared with 1.8 m/s on the prior exam. The hepatic venous end velocity is 1.4 m/s compared with 1.2 m/s. The TIPS diameters are stable. The spleen is enlarged at 13.6 cm. No definite ascites is seen. IMPRESSION: Patent TIPS. The overall appearance is similar to a prior exam from 06/08/2017. There continues to be intrahepatic biliary ductal dilatation. No discrete liver mass is identified by ultrasound. Dictated by: Dictated on workstation # [id number]
== END ==
LOC: RAD 09:03
PROVIDERS: ATTEND Nurse Practitioner Adult Health
DX: N18.6 End stage renal disease (principal); R91.8 Other nonspecific abnormal finding of lung field; J43.9 Emphysema, unspecified; K83.8 Other specified diseases of biliary tract; K74.60 Unspecified cirrhosis of liver; K72.90 Hepatic failure, unspecified without coma; Z95.828 Presence of other vascular implants and grafts; Z85.05 Personal history of malignant neoplasm of liver
CPT/HCPCS: 71250; 93975

== ENCOUNTER 2018-02-16 14:51 | Outpatient (RCR) | payer MEDICARE, MEDICAID ==
[2018-01-19 15:19] LABS: BASOPHILS # (AUTO) 0.1 10^3/uL (0.0-0.1); BASOPHILS % (AUTO) 1 % (0-10); EOSINOPHILS # (AUTO) 0.2 10^3/uL (0.0-0.3); EOSINOPHILS % (AUTO) 4 % (0-10); HEMATOCRIT 32 % (40-54); HEMOGLOBIN 10.7 G/DL (13.3-17.7); LYMPHOCYTES # (AUTO) 0.9 X 10^3 (1.0-4.0); LYMPHOCYTES % (AUTO) 17 % (12-44); MEAN CORPUSCULAR HEMOGLOBIN 29 PG (25-34); MEAN CORPUSCULAR HGB CONC 33 G/DL (32-36); MEAN CORPUSCULAR VOLUME 86 FL (80-99); MONOCYTES # (AUTO) 0.7 X 10^3 (0.0-1.0); MONOCYTES % (AUTO) 13 % (0-12); NEUTROPHILS # (AUTO) 3.3 X 10^3 (1.8-7.8); NEUTROPHILS % (AUTO) 65 % (42-75); PLATELET COUNT 57 10^3/uL (130-400); RED BLOOD COUNT 3.75 10^6/uL (4.35-5.85); RED CELL DISTRIBUTION WIDTH 17.7 % (10.0-14.5); WHITE BLOOD COUNT 5.1 10^3/uL (4.3-11.0)
[2018-01-19 15:27] LABS: INR 1.5 (0.8-1.4); PROTHROMBIN TIME PATIENT 17.7 SEC (12.2-14.7)
[2018-01-19 15:36] LABS: ALANINE AMINOTRANSFERASE 36 U/L (0-55); ALBUMIN 2.9 GM/DL (3.2-4.5); ALKALINE PHOSPHATASE 159 U/L (40-136); BUN/CREATININE RATIO 12; CALCIUM 8.1 MG/DL (8.5-10.1); CARBON DIOXIDE 28 MMOL/L (21-32); CHLORIDE 98 MMOL/L (98-107); CREATININE SERUM 0.84 MG/DL (0.60-1.30); GFR ESTIMATED > 60; POTASSIUM 3.6 MMOL/L (3.6-5.0); SODIUM 134 MMOL/L (135-145)
[2018-01-19 15:45] LABS: GLUCOSE 462 MG/DL (70-105)
[2018-02-02 09:22] LABS: BASOPHILS % (AUTO) 1 % (0-10); EOSINOPHILS # (AUTO) 0.6 10^3/uL (0.0-0.3); EOSINOPHILS % (AUTO) 9 % (0-10); HEMATOCRIT 35 % (40-54); HEMOGLOBIN 11.7 G/DL (13.3-17.7); LYMPHOCYTES # (AUTO) 1.5 X 10^3 (1.0-4.0); LYMPHOCYTES % (AUTO) 21 % (12-44); MEAN CORPUSCULAR HEMOGLOBIN 28 PG (25-34); MEAN CORPUSCULAR HGB CONC 34 G/DL (32-36); MEAN CORPUSCULAR VOLUME 82 FL (80-99); MEAN PLATELET VOLUME 10.5 FL (7.4-10.4); MONOCYTES # (AUTO) 0.7 X 10^3 (0.0-1.0); MONOCYTES % (AUTO) 10 % (0-12); NEUTROPHILS # (AUTO) 4.2 X 10^3 (1.8-7.8); NEUTROPHILS % (AUTO) 60 % (42-75); PLATELET COUNT 64 10^3/uL (130-400); RED BLOOD COUNT 4.26 10^6/uL (4.35-5.85); RED CELL DISTRIBUTION WIDTH 17.5 % (10.0-14.5); WHITE BLOOD COUNT 6.9 10^3/uL (4.3-11.0)
[2018-02-02 09:36] LABS: INR 1.3 (0.8-1.4); PROTHROMBIN TIME PATIENT 16.6 SEC (12.2-14.7)
[2018-02-02 09:42] LABS: ALANINE AMINOTRANSFERASE 71 U/L (0-55); ALBUMIN 2.7 GM/DL (3.2-4.5); ALKALINE PHOSPHATASE 299 U/L (40-136); BILIRUBIN,TOTAL 4.2 MG/DL (0.1-1.0); BUN/CREATININE RATIO 24; CALCIUM 8.3 MG/DL (8.5-10.1); CARBON DIOXIDE 22 MMOL/L (21-32); CHLORIDE 106 MMOL/L (98-107); CREATININE SERUM 0.62 MG/DL (0.60-1.30); GFR ESTIMATED > 60; GLUCOSE 225 MG/DL (70-105); POTASSIUM 4.3 MMOL/L (3.6-5.0); SODIUM 137 MMOL/L (135-145); TOTAL PROTEIN 6.2 GM/DL (6.4-8.2)
[2018-02-16 15:12] LABS: BASOPHILS % (AUTO) 1 % (0-10); EOSINOPHILS # (AUTO) 0.2 10^3/uL (0.0-0.3); EOSINOPHILS % (AUTO) 3 % (0-10); HEMATOCRIT 36 % (40-54); HEMOGLOBIN 11.9 G/DL (13.3-17.7); LYMPHOCYTES # (AUTO) 0.9 X 10^3 (1.0-4.0); LYMPHOCYTES % (AUTO) 16 % (12-44); MEAN CORPUSCULAR HEMOGLOBIN 28 PG (25-34); MEAN CORPUSCULAR HGB CONC 34 G/DL (32-36); MEAN CORPUSCULAR VOLUME 82 FL (80-99); MONOCYTES # (AUTO) 0.6 X 10^3 (0.0-1.0); MONOCYTES % (AUTO) 11 % (0-12); NEUTROPHILS # (AUTO) 3.8 X 10^3 (1.8-7.8); NEUTROPHILS % (AUTO) 69 % (42-75); PLATELET COUNT 60 10^3/uL (130-400); RED BLOOD COUNT 4.32 10^6/uL (4.35-5.85); RED CELL DISTRIBUTION WIDTH 19.2 % (10.0-14.5); WHITE BLOOD COUNT 5.5 10^3/uL (4.3-11.0)
[2018-02-16 15:14] LABS: SMEAR SCAN COMMENT YES
[2018-02-16 15:22] LABS: INR 1.4 (0.8-1.4); PROTHROMBIN TIME PATIENT 16.8 SEC (12.2-14.7)
[2018-02-16 15:30] LABS: ALANINE AMINOTRANSFERASE 50 U/L (0-55); ALBUMIN 2.5 GM/DL (3.2-4.5); ALKALINE PHOSPHATASE 281 U/L (40-136); BILIRUBIN,TOTAL 3.6 MG/DL (0.1-1.0); BUN/CREATININE RATIO 14; CALCIUM 8.5 MG/DL (8.5-10.1); CARBON DIOXIDE 24 MMOL/L (21-32); CHLORIDE 108 MMOL/L (98-107); CREATININE SERUM 0.72 MG/DL (0.60-1.30); GFR ESTIMATED > 60; GLUCOSE 279 MG/DL (70-105); SODIUM 140 MMOL/L (135-145); TOTAL PROTEIN 6.1 GM/DL (6.4-8.2)
== END 2018-03-24 13:12 | disposition home or self-care (01) ==
LOC: ONC 14:51
PROVIDERS: ATTEND Internal Medicine Hematology & Oncology
DX: C22.0 Liver cell carcinoma (principal); C78.01 Secondary malignant neoplasm of right lung; C78.02 Secondary malignant neoplasm of left lung; K72.90 Hepatic failure, unspecified without coma; R18.8 Other ascites; B19.20 Unspecified viral hepatitis C without hepatic coma; I85.00 Esophageal varices without bleeding; E11.43 Type 2 diabetes mellitus with diabetic autonomic (poly)neuropathy; J44.9 Chronic obstructive pulmonary disease, unspecified; F17.210 Nicotine dependence, cigarettes, uncomplicated; F10.21 Alcohol dependence, in remission; Z79.899 Other long term (current) drug therapy
CPT/HCPCS: 36415; 80053; 85025; 85610; 99213; 99214

== ENCOUNTER 2018-03-24 13:16 | Outpatient (RCR) | payer MEDICARE, MEDICAID ==
[2018-03-24 13:28] LABS: BASOPHILS % (AUTO) 1 % (0-10); EOSINOPHILS # (AUTO) 0.1 10^3/uL (0.0-0.3); EOSINOPHILS % (AUTO) 3 % (0-10); HEMATOCRIT 35 % (40-54); HEMOGLOBIN 11.5 G/DL (13.3-17.7); LYMPHOCYTES # (AUTO) 0.7 X 10^3 (1.0-4.0); LYMPHOCYTES % (AUTO) 16 % (12-44); MEAN CORPUSCULAR HEMOGLOBIN 27 PG (25-34); MEAN CORPUSCULAR HGB CONC 33 G/DL (32-36); MEAN CORPUSCULAR VOLUME 83 FL (80-99); MONOCYTES # (AUTO) 0.5 X 10^3 (0.0-1.0); MONOCYTES % (AUTO) 11 % (0-12); NEUTROPHILS # (AUTO) 3.1 X 10^3 (1.8-7.8); NEUTROPHILS % (AUTO) 70 % (42-75); PLATELET COUNT 69 10^3/uL (130-400); RED BLOOD COUNT 4.21 10^6/uL (4.35-5.85); RED CELL DISTRIBUTION WIDTH 21.1 % (10.0-14.5); WHITE BLOOD COUNT 4.4 10^3/uL (4.3-11.0)
[2018-03-24 13:38] LABS: INR 1.3 (0.8-1.4); PROTHROMBIN TIME PATIENT 16.5 SEC (12.2-14.7)
[2018-03-24 13:47] LABS: ALANINE AMINOTRANSFERASE 46 U/L (0-55); ALBUMIN 2.4 GM/DL (3.2-4.5); ALKALINE PHOSPHATASE 223 U/L (40-136); BILIRUBIN,TOTAL 3.8 MG/DL (0.1-1.0); BUN/CREATININE RATIO 13; CALCIUM 8.4 MG/DL (8.5-10.1); CARBON DIOXIDE 25 MMOL/L (21-32); CHLORIDE 106 MMOL/L (98-107); CREATININE SERUM 0.64 MG/DL (0.60-1.30); GFR ESTIMATED > 60; GLUCOSE 199 MG/DL (70-105); POTASSIUM 3.7 MMOL/L (3.6-5.0); SODIUM 138 MMOL/L (135-145)
== END 2018-05-07 08:24 | disposition home or self-care (01) ==
LOC: ONC 13:16
PROVIDERS: ATTEND Internal Medicine Hematology & Oncology
DX: C22.0 Liver cell carcinoma (principal); C78.01 Secondary malignant neoplasm of right lung; C78.02 Secondary malignant neoplasm of left lung; K72.90 Hepatic failure, unspecified without coma; R18.8 Other ascites; B19.20 Unspecified viral hepatitis C without hepatic coma; I85.00 Esophageal varices without bleeding; E11.43 Type 2 diabetes mellitus with diabetic autonomic (poly)neuropathy; J44.9 Chronic obstructive pulmonary disease, unspecified; F17.210 Nicotine dependence, cigarettes, uncomplicated; F10.21 Alcohol dependence, in remission; Z79.899 Other long term (current) drug therapy
CPT/HCPCS: 36415; 80053; 85025; 85610; 99213

== ENCOUNTER 2018-07-08 13:02 | Outpatient (RCR) | payer MEDICARE, MEDICAID ==
[2018-06-10 14:13] LABS: BASOPHILS % (AUTO) 1 % (0-10); EOSINOPHILS # (AUTO) 0.2 10^3/uL (0.0-0.3); EOSINOPHILS % (AUTO) 5 % (0-10); HEMATOCRIT 29 % (40-54); HEMOGLOBIN 9.5 G/DL (13.3-17.7); LYMPHOCYTES # (AUTO) 0.6 X 10^3 (1.0-4.0); LYMPHOCYTES % (AUTO) 16 % (12-44); MEAN CORPUSCULAR HEMOGLOBIN 28 PG (25-34); MEAN CORPUSCULAR HGB CONC 33 G/DL (32-36); MEAN CORPUSCULAR VOLUME 86 FL (80-99); MONOCYTES # (AUTO) 0.3 X 10^3 (0.0-1.0); MONOCYTES % (AUTO) 10 % (0-12); NEUTROPHILS # (AUTO) 2.4 X 10^3 (1.8-7.8); NEUTROPHILS % (AUTO) 69 % (42-75); PLATELET COUNT 55 10^3/uL (130-400); RED BLOOD COUNT 3.38 10^6/uL (4.35-5.85); RED CELL DISTRIBUTION WIDTH 17.4 % (10.0-14.5); WHITE BLOOD COUNT 3.5 10^3/uL (4.3-11.0)
[2018-06-10 14:42] LABS: ALANINE AMINOTRANSFERASE 25 U/L (0-55); ALBUMIN 2.5 GM/DL (3.2-4.5); ALKALINE PHOSPHATASE 143 U/L (40-136); BILIRUBIN,TOTAL 2.8 MG/DL (0.1-1.0); BUN/CREATININE RATIO 14; CALCIUM 8.2 MG/DL (8.5-10.1); CARBON DIOXIDE 24 MMOL/L (21-32); CHLORIDE 107 MMOL/L (98-107); CREATININE SERUM 0.74 MG/DL (0.60-1.30); GFR ESTIMATED > 60; GLUCOSE 374 MG/DL (70-105); POTASSIUM 3.7 MMOL/L (3.6-5.0); SODIUM 136 MMOL/L (135-145); TOTAL PROTEIN 5.9 GM/DL (6.4-8.2)
[~2018-07-08] VITALS: Ht 172.7 cm; Wt 103.4 kg
[~2018-07-08 13:02] MED LIST changes: +NIVOLUMAB 480 MG in NS (IVPB) CANCER CENTER 50 ML IV SCH; +NS (IVPB) CANCER CENTER 250 ML IV SCH
[2018-07-08 13:19] LABS: BASOPHILS % (AUTO) 1 % (0-10); EOSINOPHILS # (AUTO) 0.1 10^3/uL (0.0-0.3); EOSINOPHILS % (AUTO) 3 % (0-10); HEMATOCRIT 29 % (40-54); HEMOGLOBIN 9.2 G/DL (13.3-17.7); LYMPHOCYTES # (AUTO) 0.6 X 10^3 (1.0-4.0); LYMPHOCYTES % (AUTO) 18 % (12-44); MEAN CORPUSCULAR HEMOGLOBIN 27 PG (25-34); MEAN CORPUSCULAR HGB CONC 31 G/DL (32-36); MEAN CORPUSCULAR VOLUME 86 FL (80-99); MONOCYTES # (AUTO) 0.3 X 10^3 (0.0-1.0); MONOCYTES % (AUTO) 11 % (0-12); NEUTROPHILS % (AUTO) 66 % (42-75); PLATELET COUNT 41 10^3/uL (130-400); RED BLOOD COUNT 3.44 10^6/uL (4.35-5.85); RED CELL DISTRIBUTION WIDTH 17.6 % (10.0-14.5)
[2018-07-08 13:38] LABS: ALANINE AMINOTRANSFERASE 60 U/L (0-55); ALBUMIN 2.4 GM/DL (3.2-4.5); ALKALINE PHOSPHATASE 171 U/L (40-136); BILIRUBIN,TOTAL 2.4 MG/DL (0.1-1.0); BUN/CREATININE RATIO 27; CALCIUM 8.1 MG/DL (8.5-10.1); CARBON DIOXIDE 25 MMOL/L (21-32); CHLORIDE 108 MMOL/L (98-107); GFR ESTIMATED > 60; GLUCOSE 172 MG/DL (70-105); POTASSIUM 4.1 MMOL/L (3.6-5.0); SODIUM 139 MMOL/L (135-145); TOTAL PROTEIN 5.6 GM/DL (6.4-8.2)
[2018-07-14] MEDS ORDERED: INSU100I34 SC (15:45)
[2018-07-14] MEDS ORDERED: EXEN2PEN SC (15:45)
[2018-07-14] MEDS ORDERED: RIVA1PAT TD (15:45)
[2018-07-14] MEDS ORDERED: POTA20TA15 PO (15:45)
[2018-07-14] MEDS ORDERED: MELA10CA2 PO (15:45)
[2018-07-14] MEDS ORDERED: DESV100T16 PO (15:45)
[2018-07-14] MEDS ORDERED: PANT20TA3 PO (15:45)
[2018-07-14] MEDS ORDERED: NICO-588 TD (15:56)
[2018-07-14] MEDS ORDERED: IPRA3AMP31 NEB (16:00)
[2018-07-28] MEDS ORDERED: LACT1CAP7 PO (08:56)
[2018-07-28] MEDS ORDERED: HYDR-3781 PO (08:56)
[2018-07-28] MEDS ORDERED: LACT10SO PO (08:56)
[2018-07-28] MEDS ORDERED: PRD20T PO (08:56)
[2018-07-28] MEDS ORDERED: INSU100V16 SC (08:56)
[2018-07-28] MEDS ORDERED: MIRT15TA6 PO (08:56)
[2018-07-28] MEDS ORDERED: MORP-33 PO (08:56)
[2018-07-28] MEDS ORDERED: MORP15TA PO (09:03)
[2018-07-30] MEDS ORDERED: ACID1TAB5 PO (12:53)
[2018-07-30] MEDS ORDERED: MORP-33 PO (12:53)
== END 2018-08-01 | disposition home or self-care (01) ==
LOC: ONC 13:02
PROVIDERS: ATTEND Internal Medicine Hematology & Oncology
DX: C22.0 Liver cell carcinoma (principal); C78.01 Secondary malignant neoplasm of right lung; C78.02 Secondary malignant neoplasm of left lung; K72.90 Hepatic failure, unspecified without coma; R18.8 Other ascites; B19.20 Unspecified viral hepatitis C without hepatic coma; I85.00 Esophageal varices without bleeding; E11.43 Type 2 diabetes mellitus with diabetic autonomic (poly)neuropathy; J44.9 Chronic obstructive pulmonary disease, unspecified; F17.210 Nicotine dependence, cigarettes, uncomplicated; F10.21 Alcohol dependence, in remission; Z79.899 Other long term (current) drug therapy
CPT/HCPCS: 36591; 80053; 84443; 85025; 90471; 90686; 96413; 99213

== ENCOUNTER 2018-07-14 14:33 | Inpatient (IN) | payer MEDICARE, MEDICAID ==
[~2018-07-14] VITALS: Ht 182.9 cm; Wt 102.1 kg
[~2018-07-14 14:33] MED LIST changes: -NIVOLUMAB 480 MG in NS (IVPB) CANCER CENTER 50 ML IV SCH; -NS (IVPB) CANCER CENTER 250 ML IV SCH
--- OUTSIDE RECORDS SUMMARY | 2018-07-14 14:56 | XMS REPORT | Encounter Summary ---
Author Author [facility] Organization [facility] Address Unknown Phone Unavailable Care Team Providers Care Hospice Executive Director Name Role Phone Buster Erazo MD Unavailable Michelle Valencia MD Unavailable Jeffy Holbrook MD Unavailable Jass Paris MD Unavailable Lucy Guzmán PRE SCHOOL MANAGER Unavailable Tameka Juarez RN Unavailable Unavailable Ely Dunlap RN Unavailable Unavailable Mely Ford RN Unavailable Lisa Rae RN Unavailable Unavailable Promise Wiseman RN Unavailable Unavailable Mark Dixon MD Unavailable Radha Hung PRE SCHOOL MANAGER Unavailable Cecile Foote RN Unavailable hWitney Guy MA Unavailable Unavailable Ara Espitia RN Unavailable Unavailable Sandhya Alejandro MA Unavailable Unavailable Macy Bishop Unavailable Unavailable Betsey Tate RN Unavailable Unavailable Jose Carter RN Unavailable Unavailable Aixa Dugan RN Unavailable Unavailable Sara Gutierrez Unavailable Unavailable Mally Burkett RN Unavailable Unavailable Manan Mustafa MD Unavailable Kiana Gomez Unavailable Unavailable Melina Griffiths MD 3 Ayesha Lyn MD PCP Reason for Referral * Radiology Services (Routine) Status Reason Specialty Diagnoses / Referred By Referred To Procedures Contact Contact No Auth Needed Radiology Diagnoses Mariaelena Robertson, Ww Ct Hepatocellular 1st fl [address] carcinoma (HCC) [address] [place] [address] [place] [address] CT CHEST [place], [place] Phone: CONTRAST [phone] CT ABDOMEN WO/W Phone: CONTRAST [phone] * Radiology Services (Routine) Status Reason Specialty Diagnoses / Referred By Referred To Procedures Contact Contact No Auth Needed Radiology Diagnoses Mariaelena Robertson, [address] Ct Hepatocellular 1st fl [address] 1100 carcinoma (HCC) [address] [facility] [address]cedures [address] [place] [address] CT CHEST [place], [place] Phone: CONTRAST [phone] CT ABDOMEN WO/W Phone: CONTRAST [phone] * Radiology Services (Routine) Status Reason Specialty Diagnoses / Referred By Referred To Procedures Contact Contact New Request Radiology Diagnoses Mariaelena Robertson Hepatocellular MD carcinoma (HCC) [address] [place] [address] [place] ABDOMEN WO/W [place], [place] CONTRAST [id number] * Radiology Services (Routine) Status Reason Specialty Diagnoses / Referred By Referred To Procedures Contact Contact New Request Radiology Diagnoses Mariaelena Robertson Hepatocellular MD carcinoma (HCC) [address] [place] [address] [place] [address] [place] ABDOMEN WO/W [place] CONTRAST [id number] Reason for Visit * Radiology Services (Routine) Status Reason Specialty Diagnoses / Referred By Referred To Procedures Contact Contact No Auth Needed Radiology Diagnoses Mariaelena Robertson, [address] Ct Hepatocellular 1st fl [address] carcinoma (HCC) [address] [place] [address] CT [place], [place] Phone: CONTRAST [phone] CT ABDOMEN WO/W Phone: CONTRAST [phone] Encounter Details Date Type Department Care Team Description 06/23/2018 [facility] Mariaelena Robertson MD Encounter [facility] [address] [facility] 1st fl [address] [facility] [place] [address] [place] [address] [phone] Social History Tobacco Use Types Packs/Day Years Used Date Current Every Day Smoker Cigarettes 0.25 45 Smokeless Tobacco: Never Used Comments: trying to quit Alcohol Use Drinks/Week oz/Week Comments No quit '08; moderate alcohol intake prior (up to 8 drinks/week) Sex Assigned at Date Recorded Not on file as of this encounter Functional Status Functional Status Response Date of Assessment Does the patient have a hearing impairment: No 02/11/2018 Does the patient have a visual impairment: Yes 02/11/2018 Does the patient have impaired ambulation: Yes 02/11/2018 Does the patient have an activity of daily living No 02/11/2018 (ADL) impairment: Does the patient have an instrumental activity of Yes 02/11/2018 daily living (IADL) impairment: Cognitive Status Response Date of Assessment Does the patient have a cognitive impairment: No 02/11/2018 as of this encounter Medications at Time of Discharge Medication Sig. Disp. Refills Start Date End Date albuterol (VENTOLIN HFA, Inhale 1 Puff by mouth PROAIR HFA) 90 every 6 hours as needed mcg/actuation inhaler for Wheezing. cholecalciferol (VITAMIN Take 2,000 Units by mouth D-3) 1,000 units daily. Indications: OTC tabletIndications: OTC supplement supplement desvenlafaxine(+) Take 50 mg by mouth (PRISTIQ) 50 mg PO tablet daily. exenatide microspheres 2 Inject 0.65 mL under the mg/0.65 mL pnij skin every 7 days. furosemide (LASIX) 40 mg Take one tablet by mouth 30 tablet 0 2017 tabletIndications: dose daily. increase. insulin detemir(+) Inject under the skin. (LEVEMIR) 100 unit/mL (This was prescribed as soln an alternative to Lantus.) mirtazapine (REMERON) 15 Take 15 mg by mouth at mg tablet bedtime daily. morphine SR (MS CONTIN; Take 15 mg by mouth three ORAMORPH SR) 15 mg tablet times daily as needed omeprazole DR(+) Take 20 mg by mouth twice (PRILOSEC) 20 mg capsule daily. potassium chloride SR Take 20 mEq by mouth (K-DUR) 20 mEq tablet daily. rifAXIMin (XIFAXAN) 550 Take 1 Tab by mouth twice 60 Tab 11 2015 mg tabletIndications: End daily. stage liver disease (HCC), Hepatocellular carcinoma (HCC), S/P TIPS (transjugular intrahepatic portosystemic shunt), Hepatic encephalopathy (HCC) rivastigmine(+) (EXELON) Apply 1 Patch to top of 4.6 mg/24 hr transdermal skin as directed daily. patch traZODone (DESYREL) 50 mg Take 50 mg by mouth at tablet bedtime daily. as of this encounter Plan of Treatment Date Type Specialty Care Team Description 06/23/2018 Procedure Pass Oncology 06/23/2018 Procedure Pass Oncology as of this encounter Procedures Procedure Name Priority Date/Time Associated Diagnosis Comments CT ABDOMEN WO/W CONTRAST Routine 06/23/2018 Hepatocellular carcinoma Results for this 10:16 AM HAND FINISHER (HCC) procedure are in the results section. CT CHEST W CONTRAST Routine 06/23/2018 Hepatocellular carcinoma Results for this 10:16 AM HAND FINISHER (HCC) procedure are in the results section. POC CREATININE, RAD 06/23/2018 Results for this 9:48 AM HAND FINISHER procedure are in the results section. ALPHA FETO PROTEIN (AFP) Routine 06/23/2018 Hepatocellular carcinoma Results for this 9:46 AM HAND FINISHER (HCC) procedure are in the results section. PROTIME INR (PT) Routine 06/23/2018 Hepatocellular carcinoma Results for this 9:46 AM HAND FINISHER (HCC) procedure are in the results section. CBC AND DIFF Routine 06/23/2018 Hepatocellular carcinoma Results for this 9:46 AM HAND FINISHER (HCC) procedure are in the results section. COMPREHENSIVE METABOLIC Routine 06/23/2018 Hepatocellular carcinoma Results for this PANEL 9:46 AM HAND FINISHER (HCC) procedure are in the results section. in this encounter Results * CT CHEST W CONTRAST (06/23/2018 10:16 AM) Impressions Performed At Chest: [facility] RESULTS 1. STABLE TO SLIGHT INCREASE IN SIZE OF SCATTERED PULMONARY NODULES IN BOTH LUNGS COMPATIBLE WITH PATIENT'S KNOWN PULMONARY METASTASIS FROM HEPATOCELLULAR CARCINOMA. 2. NO SIGNIFICANT THORACIC ADENOPATHY. Abdomen and Pelvis: 1. STABLE SIZE OF TREATED SEGMENT 4A LESION WITH NOW NODULAR AREA OF ECCENTRIC ENHANCEMENT SUPERIOR MEDIALLY WHICH SHOWS NO SIGNIFICANT WASHOUT. LI RADS TREATED LESION - EQUIVOCAL . 2. STABLE SIZE OF PREVIOUSLY NOTED TREATED SEGMENT 4B LESION WITH NOW NODULAR ENHANCEMENT PERIPHERALLY WITH SLOW WASHOUT. LI RADS TREATED LESION -VIABLE. 3. STABLE FOCUS OF NODULAR ENHANCEMENT IN SEGMENT 5 OF THE LIVER WHICH SHOWS NO SIGNIFICANT WASHOUT. LI RADS 3 4. CIRRHOSIS WITH PORTAL HYPERTENSION MANIFESTED BY MODERATE SPLENOMEGALY AND PORTOSYSTEMIC VARICES, MILD PARAESOPHAGEAL VARICES AND NOW SMALL VOLUME ABDOMINAL ASCITES. 5. NO SIGNIFICANT ABDOMINAL ADENOPATHY . Finalized by Neftali Velazquez M.D. on 06/23/2018 11:29 AM. Dictated by Neftali Velazquez M.D. on 06/23/2018 10:36 AM. Narrative Performed At CT Chest and Abdomen [facility] RESULTS Clinical Indication:62 years old Male metastatic hepatocellular carcinoma. 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 Technique: Multiple contiguous axial images were obtained through the chest and abdomen following the administration of IV contrast material. Noncontrast as well as hepatic arterial, portal venous and delayed imaging was obtained. Post processing coronal and sagittal reconstruction images were made from the axial images. IV contrast: Omnipaque 350. Bowel contrast:Water Comparison: Prior CT of the chest, abdomen/ pelvis dated 04/14/2018. Chest Findings: Lower neck: Unremarkable. Axilla, Mediastinum and Nikki: No significant adenopathy. Mild paraesophageal varices are identified. Heart and Great Vessels: Right IJ chest port is now noted in place with tip within the proximal right atrium near the atrial caval junction. The heart is normal in size. No pericardial effusion is noted. The thoracic aorta is normal in caliber with mild atherosclerotic plaques about the aortic arch and descending thoracic aorta. Trachea and Major Bronchi: The major airways are widely patent. Lungs and Pleura: There is stable to slight increase increase in size of scattered pulmonary nodules in both lungs. The dominant nodule in the right lower lobe now measures 2.8 cm x 2.4 cm (series 3 image 28) compared to prior measurement of 2.4 cm x 2.3 cm. Mild emphysema again noted. No pneumothorax, new acute pulmonary infiltrates, consolidation or pleural effusion is noted. Chest Wall and Osseous Structures: Thoracic spondylosis again noted. No suspicious destructive osseous lesions. Abdomen Findings: Liver and Biliary system: The liver remains to be normal in size with cirrhotic nodular contour. TIPS remains been placed. Moderate severe intrahepatic biliary ductal dilatation is again noted.The gallbladder is nondistended with no radiopaque stones within. Liver lesions: Segment 4A lesion (series 3 image 53): previously treated lesion has slightly decreased in size now measuring 3.7 cm in widest diameter compared to prior measurement of 3.7 cm from prior examination . There appears to be a nodular area of eccentric enhancement superior medially (series 2 image 52, series 3 image 95 and series 6 image 11), with no significant washout. Segment IVb lesion: Series 3 image 55): Previously treated lesion now measures 2.9 cm x 2.7 cm and unchanged from prior exam. There appears to be nodular enhancement peripherally which demonstrates slow washout on portal venous and delayed phase imaging (series 3 image 100 and series 6 image 13). Region of low density along the periphery of the inferior lateral aspect of the right lobe of the liver is unchanged over multiple prior examinations (series 3 image 112) likely reflecting area of scarring. New focus of nodular hyperenhancement in segment 5 of the liver measuring 1.5 cm in diameter (series 3 image 58) compared to prior measurement of 1.7 cm in diameterwhich shows no significant washout on portal venous phase and delayed imaging (series 3 image 104 and series 6 image 19). Spleen: The spleen remains to be moderately enlarged measuring 16.9 cm in length compared to prior measurement of 16.5 cm in length. No focal splenic lesion. Numerous portosystemic varices again noted. Adrenal Glands and Kidneys: Unremarkable Pancreas and Retroperitoneum: The pancreas appears unremarkable. No significant retroperitoneal adenopathy seen. Aorta and Major Vessels: The abdominal aorta is normal in caliber with moderate aortoiliac atherosclerotic plaques. Embolization coils again noted in the gastrohepatic region. Bowel: The small and large bowel loops are normal in caliber. Mesentery and Peritoneal space: No significant mesenteric adenopathy is identified. There is now small volume abdominal ascites. Abdominal wall and Osseous Structures: Thoracolumbar spondylosis again noted. Compression deformity of L1 has not significantly changed from prior examination. Prominent Schmorl's node is identified about the superior endplate of L3. No suspicious destructive osseous lesions. Procedure Note Interface, Radiant Results - 06/23/2018 11:[address] Chest and Abdomen Clinical Indication:62 years old Male metastatic hepatocellular carcinoma. End -stage liver disease with metastatic hepatocellular carcinoma. Technique: Multiple contiguous axial images were obtained through the chest and abdomen following the administration of IV contrast material. Noncontrast as well as hepatic arterial, portal venous and delayed imaging was obtained. Post processing coronal and sagittal reconstruction images were made from the axial images. IV contrast: Omnipaque 350. Bowel contrast: Water Comparison: Prior CT of the chest, abdomen/ pelvis dated 04/14/2018. Chest Findings: Lower neck: Unremarkable. Axilla, Mediastinum and Nikki: No significant adenopathy. Mild paraesophageal varices are identified. Heart and Great Vessels: Right IJ chest port is now noted in place with tip within the proximal right atrium near the atrial caval junction. The heart is normal in size. No pericardial effusion is noted. The thoracic aorta is normal in caliber with mild atherosclerotic plaques about the aortic arch and descending thoracic aorta. Trachea and Major Bronchi: The major airways are widely patent. Lungs and Pleura: There is stable to slight increase increase in size of scattered pulmonary nodules in both lungs. The dominant nodule in the right lower lobe now measures 2.8 cm x 2.4 cm (series 3 image 28) compared to prior measurement of 2.4 cm x 2.3 cm. Mild emphysema again noted. No pneumothorax, new acute pulmonary infiltrates, consolidation or pleural effusion is noted. Chest Wall and Osseous Structures: Thoracic spondylosis again noted. No suspicious destructive osseous lesions. Abdomen Findings: Liver and Biliary system: The liver remains to be normal in size with cirrhotic nodular contour. TIPS remains been placed. Moderate severe intrahepatic biliary ductal dilatation is again noted. The gallbladder is nondistended with no radiopaque stones within. Liver lesions: Segment 4A lesion (series 3 image 53): previously treated lesion has slightly decreased in size now measuring 3.7 cm in widest diameter compared to prior measurement of 3.7 cm from prior examination . There appears to be a nodular area of eccentric enhancement superior medially (series 2 image 52, series 3 image 95 and series 6 image 11), with no significant washout. Segment IVb lesion: Series 3 image 55): Previously treated lesion now measures 2.9 cm x 2.7 cm and unchanged from prior exam. There appears to be nodular enhancement peripherally which demonstrates slow washout on portal venous and delayed phase imaging (series 3 image 100 and series 6 image 13). Region of low density along the periphery of the inferior lateral aspect of the right lobe of the liver is unchanged over multiple prior examinations (series 3 image 112) likely reflecting area of scarring. New focus of nodular hyperenhancement in segment 5 of the liver measuring 1.5 cm in diameter (series 3 image 58) compared to prior measurement of 1.7 cm in diameter which shows no significant washout on portal venous phase and delayed imaging (series 3 image 104 and series 6 image 19). Spleen: The spleen remains to be moderately enlarged measuring 16.9 cm in length compared to prior measurement of 16.5 cm in length. No focal splenic lesion. Numerous portosystemic varices again noted. Adrenal Glands and Kidneys: Unremarkable Pancreas and Retroperitoneum: The pancreas appears unremarkable. No significant retroperitoneal adenopathy seen. Aorta and Major Vessels: The abdominal aorta is normal in caliber with moderate aortoiliac atherosclerotic plaques. Embolization coils again noted in the gastrohepatic region. Bowel: The small and large bowel loops are normal in caliber. Mesentery and Peritoneal space: No significant mesenteric adenopathy is identified. There is now small volume abdominal ascites. Abdominal wall and Osseous Structures: Thoracolumbar spondylosis again noted. Compression deformity of L1 has not significantly changed from prior examination. Prominent Schmorl's node is identified about the superior endplate of L3. No suspicious destructive osseous lesions. IMPRESSION Chest: 1. STABLE TO SLIGHT INCREASE IN SIZE OF SCATTERED PULMONARY NODULES IN BOTH LUNGS COMPATIBLE WITH PATIENT'S KNOWN PULMONARY METASTASIS FROM HEPATOCELLULAR CARCINOMA. 2. NO SIGNIFICANT THORACIC ADENOPATHY. Abdomen and Pelvis: 1. STABLE SIZE OF TREATED SEGMENT 4A LESION WITH NOW NODULAR AREA OF ECCENTRIC ENHANCEMENT SUPERIOR MEDIALLY WHICH SHOWS NO SIGNIFICANT WASHOUT. LI RADS TREATED LESION - EQUIVOCAL . 2. STABLE SIZE OF PREVIOUSLY NOTED TREATED SEGMENT 4B LESION WITH NOW NODULAR ENHANCEMENT PERIPHERALLY WITH SLOW WASHOUT. LI RADS TREATED LESION -VIABLE. 3. STABLE FOCUS OF NODULAR ENHANCEMENT IN SEGMENT 5 OF THE LIVER WHICH SHOWS NO SIGNIFICANT WASHOUT. LI RADS 3 4. CIRRHOSIS WITH PORTAL HYPERTENSION MANIFESTED BY MODERATE SPLENOMEGALY AND PORTOSYSTEMIC VARICES, MILD PARAESOPHAGEAL VARICES AND NOW SMALL VOLUME ABDOMINAL ASCITES. 5. NO SIGNIFICANT ABDOMINAL ADENOPATHY . Finalized by Neftali Velazquez M.D. on 06/23/2018 11:29 AM. Dictated by Neftali Velazquez M.D. on 06/23/2018 10:36 AM. Performing Organization Address City/State/Zipcode Phone Number [facility] RESULTS * CT ABDOMEN WO/W CONTRAST (06/23/2018 10:16 AM) Impressions Performed At Chest: [facility] RESULTS 1. STABLE TO SLIGHT INCREASE IN SIZE OF SCATTERED PULMONARY NODULES IN BOTH LUNGS COMPATIBLE WITH PATIENT'S KNOWN PULMONARY METASTASIS FROM HEPATOCELLULAR CARCINOMA. 2. NO SIGNIFICANT THORACIC ADENOPATHY. Abdomen and Pelvis: 1. STABLE SIZE OF TREATED SEGMENT 4A LESION WITH NOW NODULAR AREA OF ECCENTRIC ENHANCEMENT SUPERIOR MEDIALLY WHICH SHOWS NO SIGNIFICANT WASHOUT. LI RADS TREATED LESION - EQUIVOCAL . 2. STABLE SIZE OF PREVIOUSLY NOTED TREATED SEGMENT 4B LESION WITH NOW NODULAR ENHANCEMENT PERIPHERALLY WITH SLOW WASHOUT. LI RADS TREATED LESION -VIABLE. 3. STABLE FOCUS OF NODULAR ENHANCEMENT IN SEGMENT 5 OF THE LIVER WHICH SHOWS NO SIGNIFICANT WASHOUT. LI RADS 3 4. CIRRHOSIS WITH PORTAL HYPERTENSION MANIFESTED BY MODERATE SPLENOMEGALY AND PORTOSYSTEMIC VARICES, MILD PARAESOPHAGEAL VARICES AND NOW SMALL VOLUME ABDOMINAL ASCITES. 5. NO SIGNIFICANT ABDOMINAL ADENOPATHY . Finalized by Neftali Velazquez M.D. on 06/23/2018 11:29 AM. Dictated by Neftali Velazquez M.D. on 06/23/2018 10:36 AM. Narrative Performed At CT Chest and Abdomen [facility] RESULTS Clinical Indication:62 years old Male metastatic hepatocellular carcinoma. 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 Technique: Multiple contiguous axial images were obtained through the chest and abdomen following the administration of IV contrast material. Noncontrast as well as hepatic arterial, portal venous and delayed imaging was obtained. Post processing coronal and sagittal reconstruction images were made from the axial images. IV contrast: Omnipaque 350. Bowel contrast:Water Comparison: Prior CT of the chest, abdomen/ pelvis dated 04/14/2018. Chest Findings: Lower neck: Unremarkable. Axilla, Mediastinum and Nikki: No significant adenopathy. Mild paraesophageal varices are identified. Heart and Great Vessels: Right IJ chest port is now noted in place with tip within the proximal right atrium near the atrial caval junction. The heart is normal in size. No pericardial effusion is noted. The thoracic aorta is normal in caliber with mild atherosclerotic plaques about the aortic arch and descending thoracic aorta. Trachea and Major Bronchi: The major airways are widely patent. Lungs and Pleura: There is stable to slight increase increase in size of scattered pulmonary nodules in both lungs. The dominant nodule in the right lower lobe now measures 2.8 cm x 2.4 cm (series 3 image 28) compared to prior measurement of 2.4 cm x 2.3 cm. Mild emphysema again noted. No pneumothorax, new acute pulmonary infiltrates, consolidation or pleural effusion is noted. Chest Wall and Osseous Structures: Thoracic spondylosis again noted. No suspicious destructive osseous lesions. Abdomen Findings: Liver and Biliary system: The liver remains to be normal in size with cirrhotic nodular contour. TIPS remains been placed. Moderate severe intrahepatic biliary ductal dilatation is again noted.The gallbladder is nondistended with no radiopaque stones within. Liver lesions: Segment 4A lesion (series 3 image 53): previously treated lesion has slightly decreased in size now measuring 3.7 cm in widest diameter compared to prior measurement of 3.7 cm from prior examination . There appears to be a nodular area of eccentric enhancement superior medially (series 2 image 52, series 3 image 95 and series 6 image 11), with no significant washout. Segment IVb lesion: Series 3 image 55): Previously treated lesion now measures 2.9 cm x 2.7 cm and unchanged from prior exam. There appears to be nodular enhancement peripherally which demonstrates slow washout on portal venous and delayed phase imaging (series 3 image 100 and series 6 image 13). Region of low density along the periphery of the inferior lateral aspect of the right lobe of the liver is unchanged over multiple prior examinations (series 3 image 112) likely reflecting area of scarring. New focus of nodular hyperenhancement in segment 5 of the liver measuring 1.5 cm in diameter (series 3 image 58) compared to prior measurement of 1.7 cm in diameterwhich shows no significant washout on portal venous phase and delayed imaging (series 3 image 104 and series 6 image 19). Spleen: The spleen remains to be moderately enlarged measuring 16.9 cm in length compared to prior measurement of 16.5 cm in length. No focal splenic lesion. Numerous portosystemic varices again noted. Adrenal Glands and Kidneys: Unremarkable Pancreas and Retroperitoneum: The pancreas appears unremarkable. No significant retroperitoneal adenopathy seen. Aorta and Major Vessels: The abdominal aorta is normal in caliber with moderate aortoiliac atherosclerotic plaques. Embolization coils again noted in the gastrohepatic region. Bowel: The small and large bowel loops are normal in caliber. Mesentery and Peritoneal space: No significant mesenteric adenopathy is identified. There is now small volume abdominal ascites. Abdominal wall and Osseous Structures: Thoracolumbar spondylosis again noted. Compression deformity of L1 has not significantly changed from prior examination. Prominent Schmorl's node is identified about the superior endplate of L3. No suspicious destructive osseous lesions. Procedure Note Interface, Radiant Results - 06/23/2018 11:[address] Chest and Abdomen Clinical Indication:62 years old Male metastatic hepatocellular carcinoma. End -stage liver disease with metastatic hepatocellular carcinoma. Technique: Multiple contiguous axial images were obtained through the chest and abdomen following the administration of IV contrast material. Noncontrast as well as hepatic arterial, portal venous and delayed imaging was obtained. Post processing coronal and sagittal reconstruction images were made from the axial images. IV contrast: Omnipaque 350. Bowel contrast: Water Comparison: Prior CT of the chest, abdomen/ pelvis dated 04/14/2018. Chest Findings: Lower neck: Unremarkable. Axilla, Mediastinum and Nikki: No significant adenopathy. Mild paraesophageal varices are identified. Heart and Great Vessels: Right IJ chest port is now noted in place with tip within the proximal right atrium near the atrial caval junction. The heart is normal in size. No pericardial effusion is noted. The thoracic aorta is normal in caliber with mild atherosclerotic plaques about the aortic arch and descending thoracic aorta. Trachea and Major Bronchi: The major airways are widely patent. Lungs and Pleura: There is stable to slight increase increase in size of scattered pulmonary nodules in both lungs. The dominant nodule in the right lower lobe now measures 2.8 cm x 2.4 cm (series 3 image 28) compared to prior measurement of 2.4 cm x 2.3 cm. Mild emphysema again noted. No pneumothorax, new acute pulmonary infiltrates, consolidation or pleural effusion is noted. Chest Wall and Osseous Structures: Thoracic spondylosis again noted. No suspicious destructive osseous lesions. Abdomen Findings: Liver and Biliary system: The liver remains to be normal in size with cirrhotic nodular contour. TIPS remains been placed. Moderate severe intrahepatic biliary ductal dilatation is again noted. The gallbladder is nondistended with no radiopaque stones within. Liver lesions: Segment 4A lesion (series 3 image 53): previously treated lesion has slightly decreased in size now measuring 3.7 cm in widest diameter compared to prior measurement of 3.7 cm from prior examination . There appears to be a nodular area of eccentric enhancement superior medially (series 2 image 52, series 3 image 95 and series 6 image 11), with no significant washout. Segment IVb lesion: Series 3 image 55): Previously treated lesion now measures 2.9 cm x 2.7 cm and unchanged from prior exam. There appears to be nodular enhancement peripherally which demonstrates slow washout on portal venous and delayed phase imaging (series 3 image 100 and series 6 image 13). Region of low density along the periphery of the inferior lateral aspect of the right lobe of the liver is unchanged over multiple prior examinations (series 3 image 112) likely reflecting area of scarring. New focus of nodular hyperenhancement in segment 5 of the liver measuring 1.5 cm in diameter (series 3 image 58) compared to prior measurement of 1.7 cm in diameter which shows no significant washout on portal venous phase and delayed imaging (series 3 image 104 and series 6 image 19). Spleen: The spleen remains to be moderately enlarged measuring 16.9 cm in length compared to prior measurement of 16.5 cm in length. No focal splenic lesion. Numerous portosystemic varices again noted. Adrenal Glands and Kidneys: Unremarkable Pancreas and Retroperitoneum: The pancreas appears unremarkable. No significant retroperitoneal adenopathy seen. Aorta and Major Vessels: The abdominal aorta is normal in caliber with moderate aortoiliac atherosclerotic plaques. Embolization coils again noted in the gastrohepatic region. Bowel: The small and large bowel loops are normal in caliber. Mesentery and Peritoneal space: No significant mesenteric adenopathy is identified. There is now small volume abdominal ascites. Abdominal wall and Osseous Structures: Thoracolumbar spondylosis again noted. Compression deformity of L1 has not significantly changed from prior examination. Prominent Schmorl's node is identified about the superior endplate of L3. No suspicious destructive osseous lesions. IMPRESSION Chest: 1. STABLE TO SLIGHT INCREASE IN SIZE OF SCATTERED PULMONARY NODULES IN BOTH LUNGS COMPATIBLE WITH PATIENT'S KNOWN PULMONARY METASTASIS FROM HEPATOCELLULAR CARCINOMA. 2. NO SIGNIFICANT THORACIC ADENOPATHY. Abdomen and Pelvis: 1. STABLE SIZE OF TREATED SEGMENT 4A LESION WITH NOW NODULAR AREA OF ECCENTRIC ENHANCEMENT SUPERIOR MEDIALLY WHICH SHOWS NO SIGNIFICANT WASHOUT. LI RADS TREATED LESION - EQUIVOCAL . 2. STABLE SIZE OF PREVIOUSLY NOTED TREATED SEGMENT 4B LESION WITH NOW NODULAR ENHANCEMENT PERIPHERALLY WITH SLOW WASHOUT. LI RADS TREATED LESION -VIABLE. 3. STABLE FOCUS OF NODULAR ENHANCEMENT IN SEGMENT 5 OF THE LIVER WHICH SHOWS NO SIGNIFICANT WASHOUT. LI RADS 3 4. CIRRHOSIS WITH PORTAL HYPERTENSION MANIFESTED BY MODERATE SPLENOMEGALY AND PORTOSYSTEMIC VARICES, MILD PARAESOPHAGEAL VARICES AND NOW SMALL VOLUME ABDOMINAL ASCITES. 5. NO SIGNIFICANT ABDOMINAL ADENOPATHY . Finalized by Neftali Velazquez M.D. on 06/23/2018 11:29 AM. Dictated by Neftali Velazquez M.D. on 06/23/2018 10:36 AM. Performing Organization Address [facility] [place] Phone Number RAD RESULTS * POC CREATININE, RAD (06/23/2018 9:48 AM) Creatinine, POC 0.5 0.4 - 1.24 MG/DL [facility] Performing Organization Address [facility] [place] Phone Number MAIN LAB [address] [place] [address] * PROTIME INR (PT) (06/23/2018 9:46 AM) INR 1.3 (H) 0.8 - 1.2 [facility] Specimen Blood Performing Organization Address [facility] [place] Phone Number MAIN LAB [address] [phone] * COMPREHENSIVE METABOLIC PANEL (06/23/2018 9:46 AM) Sodium 135 (L) 137 - 147 MMOL/L [facility] Potassium 3.8 3.5 - 5.1 MMOL/L [facility] Chloride 105 98 - 110 MMOL/L [facility] Glucose 159 (H) 70 - 100 MG/DL [facility] Blood Urea Nitrogen 11 7 - 25 MG/DL [facility] Creatinine 0.53 0.4 - 1.24 MG/DL [facility] Calcium 8.0 (L) 8.5 - 10.6 MG/DL [facility] Total Protein 5.8 (L) 6.0 - 8.0 G/DL [facility] Total Bilirubin 2.1 (H) 0.3 - 1.2 MG/DL [facility] Albumin 2.5 (L) 3.5 - 5.0 G/DL [facility] Alk Phosphatase 143 (H) 25 - 110 U/L [facility] AST (SGOT) 77 (H) 7 - 40 U/L [facility] CO2 28 21 - 30 MMOL/L [facility] ALT (SGPT) 34 7 - 56 U/L [facility] Anion Gap 2 (L) 3 - 12 [facility] eGFR Non >60 >60 mL/min [facility] Comment: The eGFR is not validated for use in drug dosing adjustments.Continue to use estimated creatinine clearance per dosing reference text.Please contact the Clinical Pharmacist for questions. eGFR >60 >60 mL/min [facility] Comment: The eGFR is not validated for use in drug dosing adjustments.Continue to use estimated creatinine clearance per dosing reference text.Please contact the Clinical Pharmacist for questions. Specimen Blood Performing Organization Address City/[facility] Phone Number [facility] [address] [place] [address] * CBC AND DIFF (06/23/2018 9:46 AM) White Blood Cells 3.7 (L) 4.5 - 11.0 K/UL [facility] RBC 3.63 (L) 4.4 - 5.5 M/UL [facility] Hemoglobin 10.0 (L) 13.5 - 16.5 GM/DL [facility] Hematocrit 30.2 (L) 40 - 50 % [facility] MCV 83.2 80 - 100 FL [facility] MCH 27.6 26 - 34 PG [facility] MCHC 33.2 32.0 - 36.0 G/DL [facility] RDW 18.1 (H) 11 - 15 % [facility] Platelet Count 42 (L) 150 - 400 K/UL [facility] MPV 10.0 7 - 11 FL [facility] Neutrophils 68 41 - 77 % [facility] Lymphocytes 18 (L) 24 - 44 % [facility] Monocytes 9 4 - 12 % [facility] Eosinophils 4 0 - 5 % [facility] Basophils 1 0 - 2 % [facility] Absolute Neutrophil Count 2.50 1.8 - 7.0 K/UL [facility] Absolute Lymph Count 0.70 (L) 1.0 - 4.8 K/UL [facility] Absolute Monocyte Count 0.30 0 - 0.80 K/UL [facility] Absolute Eosinophil Count 0.20 0 - 0.45 K/UL [facility] Absolute Basophil Count 0.00 0 - 0.20 K/UL [facility] Specimen Blood Performing Organization Address City/[facility]/Zipcode Phone Number [facility] [address] [place] [address] * ALPHA FETO PROTEIN (AFP) (06/23/2018 9:46 AM) Alpha Feto Protein 2.4 0.0 - 15.0 NG/ML [facility] Specimen Blood Performing Organization Address City/State/Zipcode Phone Number MAIN LAB [address] [place] [address] in this encounter Visit Diagnoses Diagnosis Hepatocellular carcinoma (HCC) Malignant neoplasm of liver, primary Administered Medications Medication Order MAR Action Action Date Dose Rate Site iohexol ([id number]-350) 350 mg/mL Given 06/23/2018 100 mL injection 100 mL 09:45 HAND FINISHER 100 mL, Intravenous, ONCE, 1 dose, Thu06/23/18 at 0945, NOTE: This is a HIGH ALERT Medication. sodium chloride PF 0.9% injection 50 mL Given 06/23/2018 50 mL 50 mL, Intravenous, ONCE, 1 dose, Thu 09:45 HAND FINISHER 06/23/18 at 0945, Intra-procedure (IR) in this encounter
--- OUTSIDE RECORDS SUMMARY | 2018-07-14 14:56 | XMS REPORT | Clinical Summary ---
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 Operator Name Role Phone Buster Erazo MD Unavailable Michelle Valencia MD Unavailable Jeffy Holbrook MD Unavailable Jass Paris MD Unavailable Lucy Guzmán RN TRAINING Unavailable Tameka Juarez RN Unavailable Unavailable Ely Dunlap RN Unavailable Unavailable Mely Ford RN Unavailable Lisa Rae RN Unavailable Unavailable Promise Wiseman RN Unavailable Unavailable Mark Dixon MD Unavailable Radha Hung RN TRAINING Unavailable Cecile Foote RN Unavailable Whitney Guy MA Unavailable Unavailable Ara Espitia RN Unavailable Unavailable Sandhya Alejandro MA Unavailable Unavailable Macy Bishop Unavailable Unavailable Betsey Tate RN Unavailable Unavailable Jose Carter RN Unavailable Unavailable Aixa Dugan RN Unavailable Unavailable Sara Gutierrez Unavailable Unavailable Mally Burkett RN Unavailable Unavailable Manan Msutafa MD Unavailable Kiana Gomez Unavailable Unavailable Melina Griffiths MD 3 Ayesha Lyn MD PCP Source Comments Some departments are not documenting in the electronic medical record. If you do not see the information that you expected, contact Release of Information in the Health Information Management department at [phone] for further assistance in locating additional records.[facility] Allergies Active Allergy Reactions Severity Noted Date Comments Midazolam SEE COMMENTS Low 02/03/2017 Got a reaction to this med while in the hospital, pt doesn't know what reaction he got. -per pt Current Medications Prescription Sig. Disp. Refills Start End Date Status Date desvenlafaxine(+) Take 50 mg by mouth Active (PRISTIQ) 50 mg PO tablet daily. morphine SR (MS CONTIN; Take 15 mg by mouth three Active ORAMORPH SR) 15 mg tablet times daily as needed traZODone (DESYREL) 50 mg Take 50 mg by mouth at Active tablet bedtime daily. cholecalciferol (VITAMIN Take 2,000 Units by mouth Active D-3) 1,000 units daily. Indications: OTC tabletIndications: OTC supplement supplement potassium chloride SR Take 20 mEq by mouth Active (K-DUR) 20 mEq tablet daily. omeprazole DR(+) Take 20 mg by mouth twice Active (PRILOSEC) 20 mg capsule daily. albuterol (VENTOLIN HFA, Inhale 1 Puff by mouth Active PROAIR HFA) 90 every 6 hours as needed mcg/actuation inhaler for Wheezing. rifAXIMin (XIFAXAN) 550 Take 1 Tab by mouth twice 60 Tab 11 06/24/20 Active mg tabletIndications: End daily. 16 stage liver disease (HCC), Hepatocellular carcinoma (HCC), S/P TIPS (transjugular intrahepatic portosystemic shunt), Hepatic encephalopathy (HCC) mirtazapine (REMERON) 15 Take 15 mg by mouth at Active mg tablet bedtime daily. rivastigmine(+) (EXELON) Apply 1 Patch to top of Active 4.6 mg/24 hr transdermal skin as directed daily. patch exenatide microspheres 2 Inject 0.65 mL under the Active mg/0.65 mL pnij skin every 7 days. insulin detemir(+) Inject under the skin. Active (LEVEMIR) 100 unit/mL (This was prescribed as soln an alternative to Lantus.) furosemide (LASIX) 40 mg Take one tablet by mouth 30 tablet 0 Active tabletIndications: dose daily. 18 increase. Active Problems Problem Noted Date Non-occlusive thrombus 09/30/2016 End-stage liver disease (HCC) 05/10/2015 Hepatic encephalopathy (HCC) 05/10/2015 Esophageal varices (HCC) 05/10/2015 S/P TIPS (transjugular intrahepatic portosystemic shunt) 05/10/2015 Overview: Placed in 2010 Revision done in 11/2014 Type 2 diabetes mellitus with complication (HCC) 05/10/2015 Tobacco use 05/10/2015 Anemia 05/10/2015 Umbilical hernia 04/17/2015 HCC (hepatocellular carcinoma) (HCC) 02/21/2015 Overview: PMH: DM, end stage liver disease secondary to prior Hepatitis C genotype 1a (treated) with development of hepatocellular carcinoma. History of decompensation with esophageal varices, hepatic encephalopathy, ascites, and LE edema, s/p TIPS placement in 2010. --Developed a liver lesion October [address] showing a 1.6 cm lesion in segment 4A. s/p TACE and MWA on 02/21/2015. --Serial imaging done and treated area appeared to be stable until CT in November 2015 showed high suspicion for residual tumor -s/p MWA segment 4a and TACE segment 4b December 28, 2015. --CT in Sep 2016 showed low probability of recurrent tumor. --He had TIPS revision in Aug 2016and OSH doppler in October 2016showed patent TIPS. He is noncompliant with medications. --Discussions have taken place in the past with pt and family regarding OLT and they did not wish to pursue. --Approximately a year ago he had complications of bacterial meningitis, pneumonia, and the flu. 01/22/15 - CT ABD CT ABDOMEN W/WO CONTRAST IMPRESSION: PERSISTENT FINDINGS OF CIRRHOSIS AND PORTAL VENOUS HYPERTENSION WITHOUT CHANGE IN MILD TO MODERATE SPLENOMEGALY. THERE IS NO ASCITES. NO SIGNIFICANT CHANGE IN SIZE OF A SMALL ENHANCING SEGMENT 4 LESION WHICH CLEARLY SHOWS WASHOUT ON TODAY'S EXAMINATION ( LR 4/LR 5). ROUTINE PERIODIC IMAGING AND LABORATORY FOLLOW-UP IS SUGGESTED. NO NEW LESIONS ARE IDENTIFIED. 02/21/15 - TACE and MWA, [facility] 12/28/15 - MWA segment 4a and TACE segment 4b, [facility] 09/28/17 - CT A/P - additional hypodense hepatic masses and bilateral lung lesions noted. CT chest ordered. SCanned into O2 and images in PACS. 11/09/17 - Last seen by hepatology 11/16/17 - Reviewed at HCC Conference - "CT of abdomen completed September 28, 2017 reviewed in HCC conference this morning. Recommendation for patient to complete non - contrasted CT Chest and CA 19-9 to evaluate lung nodules and r/o lung cancer. If lung nodule is malignant, nodule should be biopsied to assess for cholangiocarcinoma vs. lung cancer d/t ductal dilatation vs. PVT seen on imaging which could be some concerning for cholangiocarcinoma. Should patient need biopsy patient will need to be treated with antibiotics prior to procedure. Previously treated liver lesions stable." 11/25/17 - Ultrasound ABD - scanned into O2 and images in PACS. 11/25/17 - CT Chest - Showing bilateral solid pulmonary nodules. 11/30/17 - AFP=2.1 12/07/17 - Progress note by Mely Jaeger APRN. Recommening biopsy of right lung nodule and referral to Dr. Robertson. Concners for cholangiocarcinoma vs primary lung cancer. 01/07/18 - Lung bx planned in IR (the soonest patient's sister could take him for bx). Ca 19.9 ordered. Major depressive disorder, recurrent episode, moderate (HCC) 03/22/2012 Resolved Problems Problem Noted Date Resolved Date End stage liver disease (HCC) 03/19/2017 06/05/2017 Overview: Added automatically from request for surgery [id number] Hepatocellular carcinoma (HCC) 09/23/2016 06/05/2017 Encounters Date Type Specialty Care Team Description 06/23/2018 Office Visit Oncology Mariaelena Robertson MD HCC ( hepatocellular carcinoma) (HCC) 06/23/2018 [facility] Mariaelena Robertson MD Encounter 06/23/2018 [facility] Mariaelena Robertson MD Encounter 06/15/2018 Telephone Hepatology Joseph Guzman, RN Results 06/15/2018 Telephone Hepatology Joseph Guzman, RN Results 06/09/2018 Orders Only Oncology Mariaelena Robertson MD Hepatocellular carcinoma (HCC) (Primary Dx) 06/03/2018 Orders Only Hepatology Chris Granados End-stage liver disease (HCC) 06/03/2018 Orders Only Hepatology Joseph Guzman, RN End-stage liver disease (HCC) (Primary Dx) 05/31/2018 Telephone Oncology Mariaelena Robertson MD Cancer Follow up 05/27/2018 Telephone Hepatology Mely Jaeger APRN Follow-up Phone Call (Labs done on 05/18) 05/24/2018 Telephone Oncology Mariaelena Robertson MD Cancer Follow up 05/20/2018 Documentation Hepatology Mely Jaeger APRN 05/19/2018 Telephone Hepatology Mely Jaeger APRN Other 05/18/2018 Telephone Oncology Mariaelena Robertson MD Cancer Follow up 05/18/2018 Telephone Oncology Mariaelena Robertson MD Appointment Request 05/13/2018 Orders Only Hepatology Joseph Guzman, AISHA HCC ( hepatocellular carcinoma) (HCC) (Primary Dx); End-stage liver disease (HCC) 05/11/2018 Telephone Hepatology Mely Jaeger APRN Other (return call) 05/10/2018 Telephone Hepatology Mely Jaeger APRN Worsening Symptoms 05/03/2018 [facility] On[facility] Nazia Huang RN TRAINING-REHAB OFFICE COORDINATOR Encounter Mariaelena Robertson MD 05/03/2018 Office Visit Oncology Nazia Huang APRN-REHAB OFFICE COORDINATOR Hepatocellular carcinoma (HCC) (Primary Dx); HCC (hepatocellular carcinoma) (HCC); End-stage liver disease (HCC) 05/03/2018 Nurse Only Oncology Nazia Huang, RN TRAINING-REHAB OFFICE COORDINATOR HCC ( hepatocellular carcinoma) (HCC) (Primary Dx) 05/03/2018 Procedure Pass Radiology 05/03/2018 Procedure Pass Radiology 05/03/2018 Pharmacy Visit 05/03/2018 Orders Only Oncology Nazia Huang, RN TRAINING-REHAB OFFICE COORDINATOR 04/30/2018 Telephone Oncology Valeria Kessler PHARMD Chemotherapy Follow up 04/30/2018 Pharmacy Visit 04/29/2018 Orders Only Oncology Mariaelena Robertson MD 04/29/2018 Pharmacy Visit 04/29/2018 Orders Only Oncology Sal Nazia, RN TRAINING-REHAB OFFICE COORDINATOR 04/28/2018 Pharmacy Visit 04/26/2018 Pharmacy Visit 04/26/2018 Telephone Hepatology Joseph Guzman RN Results (04/14 US 04/14 & 04/22 Labs) 04/22/2018 Hospital Oncology Nazia Huang RN TRAINING-REHAB OFFICE COORDINATOR Encounter 04/22/2018 Hospital Radiology Mariaelena Robertson MD HCC (hepatocellular Encounter Macy Palomo RN carcinoma) (HCC) Kate Funez, RT(R)(),LRT Jeffy Holbrook MD 04/20/2018 Telephone Oncology Mariaelena Robertson MD Cancer Follow up 04/20/2018 Documentation Oncology Mariaelena Robertson MD 04/19/2018 Pre/Post Radiology Tc Sifuentes RN Procedure 04/15/2018 Telephone Oncology Mariaelena Robertson MD Appointment Request 04/14/2018 Office Visit Oncology Mariaelena Robertson MD HCC ( hepatocellular carcinoma) (HCC) (Primary Dx); Hepatic encephalopathy (HCC); End-stage liver disease (HCC); Anemia, unspecified type 04/14/2018 Hospital Radiology Mely Jaeger APRN Encounter 04/14/2018 Hospital Radiology Mariaelena Robertson MD Encounter 04/14/2018 Hospital Radiology Mariaelena Robertson MD Encounter 04/14/2018 Pharmacy Visit 04/14/2018 Ancillary Hepatology Mely Jaeger APRN Cirrhosis of liver Orders without ascites, unspecified hepatic cirrhosis type (HCC) ; HCC (hepatocellular carcinoma) (HCC); End-stage liver disease (HCC); S/P TIPS (transjugular intrahepatic portosystemic shunt) 01/13/2018 Procedure Pass Radiology 01/13/2018 Procedure Pass Radiology from Last 3 Months Immunizations Name Dates Previously Given Next Due Tdap Vaccine 01/11/2009 Family History Medical History Relation Name Comments Heart Attack Father Diabetes Mother Hypertension Mother Cancer Sister Cancer Sister metastatic cervical cancer Relation Name Status Comments Father Mother Sister Sister Social History Tobacco Use Types Packs/Day Years Used Date Current Every Day Smoker Cigarettes 0.25 45 Smokeless Tobacco: Never Used Tobacco Cessation: Ready to Quit: Yes Comments: trying to quit Alcohol Use Drinks/Week oz/Week Comments No quit '08; moderate alcohol intake prior (up to 8 drinks/week) Sex Assigned at Date Recorded Not on file Last Filed Vital Signs Vital Sign Reading Time Taken Blood Pressure 125/85 06/23/2018 2:02 PM SCREEN ROLLER Pulse 68 06/23/2018 2:02 PM SCREEN ROLLER Temperature 36.8 C (98.2 F) 06/23/2018 2:02 PM SCREEN ROLLER Respiratory Rate 18 06/23/2018 2:02 PM SCREEN ROLLER Oxygen Saturation 99% 06/23/2018 2:02 PM SCREEN ROLLER Inhaled Oxygen - - Concentration Weight 101.5 kg (223 lb 12.8 oz) 06/23/2018 2:02 PM SCREEN ROLLER Height 182.9 cm (6' 0.01") 05/03/2018 9:58 AM CDT Body Mass Index 30.35 06/23/2018 2:02 PM SCREEN ROLLER Plan of Treatment Date Type Specialty Care Team Description 06/23/2018 Procedure Pass Oncology 06/23/2018 Procedure Pass Oncology Health Maintenance Due Date Last Done Comments PHYSICAL (COMPREHENSIVE) 1961 EXAM DILATED EYE EXAM 1972 FOOT EXAM 1972 MICROALBUMIN 1972 PNEUMONIA VACCINE (DM) 1972 SHINGLES RECOMBINANT 2004 VACCINE (1 of 2) HBA1C 12/03/2017 06/04/2017, 10/31/2015, 11/14/2014, Additional history exists INFLUENZA VACCINE 03/10/2018 08/20/2016, 05/16/2009 DTAP/TDAP VACCINES (2 - 01/11/2019 01/11/2009 Td) COLORECTAL CANCER 09/05/2020 09/05/2010, 07/11/2008, 06/09/2008 SCREENING HIV SCREENING Completed 01/08/2009 Implants Implanted Type Area Food Service Tray Attendant Device Expiration Model / Identifier Date Serial / Lot Dev Clsr 70cm 6fr Angsl Vip - Right: [employer] [id number] 2016 [id number] / [id number] Groin 4591 . / Implanted: Qty: 1 on 12/28/2015 by [id number] Cristhian Ervin MD Prtcl Embl 70-150um 2ml Lbl Vl Liver BIOCOMPATIBLES [id number] / Implanted: Qty: 2 on 12/28/2015 by [employer] . / Jeffy Holbrook MD NOT RECORDED Stent Vascular 10mm 6fr 60mm 80cm Liver COOK GRP:COOK [id number] 03/2019 [id number] / Self Expanding Flexible - S. 8675 . / Implanted: Qty: 1 on 09/23/2016 by [id number] Jeffy Holbrook MD Port Implantable 8 Float Point Unit Right: CR BARD:ACCESS [id number] 10/07/2018 [id number] / Siom Intermediate - Sna Chest Wall SYS 8082 NA / Implanted: Qty: 1 on 04/22/2018 by [id number] Yosvany Bacon MD Procedures Procedure Name Priority Date/Time Associated Diagnosis Comments CT CHEST W CONTRAST Routine 06/23/2018 Hepatocellular carcinoma Results for this 10:16 AM SCREEN ROLLER (HCC) procedure are in the results section. CT ABDOMEN WO/W CONTRAST Routine 06/23/2018 Hepatocellular carcinoma Results for this 10:16 AM SCREEN ROLLER (HCC) procedure are in the results section. POC CREATININE, RAD 06/23/2018 Results for this 9:48 AM SCREEN ROLLER procedure are in the results section. PROTIME INR (PT) Routine 06/23/2018 Hepatocellular carcinoma Results for this 9:46 AM SCREEN ROLLER (HCC) procedure are in the results section. COMPREHENSIVE METABOLIC Routine 06/23/2018 Hepatocellular carcinoma Results for this PANEL 9:46 AM SCREEN ROLLER (HCC) procedure are in the results section. CBC AND DIFF Routine 06/23/2018 Hepatocellular carcinoma Results for this 9:46 AM SCREEN ROLLER (HCC) procedure are in the results section. ALPHA FETO PROTEIN (AFP) Routine 06/23/2018 Hepatocellular carcinoma Results for this 9:46 AM SCREEN ROLLER (HCC) procedure are in the results section. BASIC METABOLIC PANEL Routine 06/02/2018 End-stage liver disease Results for this 10:30 AM CDT (HCC) procedure are in the results section. COMPREHENSIVE METABOLIC Routine 05/03/2018 HCC (hepatocellular Results for this PANEL 9:46 AM CDT carcinoma) (HCC) procedure are in the results section. CBC AND DIFF Routine 05/03/2018 HCC (hepatocellular Results for this 9:46 AM CDT carcinoma) (HCC) procedure are in the results section. TSH WITH FREE T4 REFLEX Add on 04/22/2018 Cirrhosis of liver Results for this 11:29 AM CDT without ascites, procedure are in the unspecified hepatic results section. cirrhosis type (HCC) COMPREHENSIVE METABOLIC Routine 04/22/2018 Cirrhosis of liver Results for this PANEL 11:29 AM CDT without ascites, procedure are in the unspecified hepatic results section. cirrhosis type (HCC) PROTIME INR (PT) Routine 04/22/2018 Cirrhosis of liver Results for this 11:29 AM CDT without ascites, procedure are in the unspecified hepatic results section. cirrhosis type (HCC) CBC AND DIFF Routine 04/22/2018 Cirrhosis of liver Results for this 11:29 AM CDT without ascites, procedure are in the unspecified hepatic results section. cirrhosis type (HCC) IR CENTRAL VENOUS Routine 04/22/2018 HCC (hepatocellular Results for this CATHETER 10:34 AM CDT carcinoma) (HCC) procedure are in the results section. POC GLUCOSE 04/22/2018 Results for this 9:23 AM CDT procedure are in the results section. US ABDOMEN COMPLETE Routine 04/14/2018 Cirrhosis of liver Results for this 11:59 AM CDT without ascites, procedure are in the unspecified hepatic results section. cirrhosis type (HCC) HCC (hepatocellular carcinoma) (HCC) End-stage liver disease (HCC) S/P TIPS (transjugular intrahepatic portosystemic shunt) US DOPPLER ABD PELV Routine 04/14/2018 Alcoholic cirrhosis of Results for this RETROPER COMP 11:59 AM CDT liver without ascites procedure are in the (HCC) results section. End-stage liver disease (HCC) S/P TIPS (transjugular intrahepatic portosystemic shunt) HCC (hepatocellular carcinoma) (HCC) Hepatic encephalopathy (HCC) CT ABD WO/W PELVIS W Routine 04/14/2018 Cirrhosis of liver Results for this 10:41 AM CDT without ascites, procedure are in the unspecified hepatic results section. cirrhosis type (HCC) Hepatocellular carcinoma (HCC) CT CHEST W CONTRAST Routine 04/14/2018 Cirrhosis of liver Results for this 10:41 AM CDT without ascites, procedure are in the unspecified hepatic results section. cirrhosis type (HCC) Hepatocellular carcinoma (HCC) POC CREATININE, RAD 04/14/2018 Results for this 10:01 AM CDT procedure are in the results section. PROTIME INR (PT) Routine 04/14/2018 Cirrhosis of liver Results for this 9:58 AM CDT without ascites, procedure are in the unspecified hepatic results section. cirrhosis type (HCC) Hepatocellular carcinoma (HCC) COMPREHENSIVE METABOLIC Routine 04/14/2018 Cirrhosis of liver Results for this PANEL 9:58 AM CDT without ascites, procedure are in the unspecified hepatic results section. cirrhosis type (HCC) Hepatocellular carcinoma (HCC) CBC AND DIFF Routine 04/14/2018 Cirrhosis of liver Results for this 9:58 AM CDT without ascites, procedure are in the unspecified hepatic results section. cirrhosis type (HCC) Hepatocellular carcinoma (HCC) ALPHA FETO PROTEIN (AFP) Routine 04/14/2018 Cirrhosis of liver Results for this 9:58 AM CDT without ascites, procedure are in the unspecified hepatic results section. cirrhosis type (HCC) Hepatocellular carcinoma (HCC) from Last 3 Months Results * CT ABDOMEN WO/W CONTRAST (06/23/2018 10:16 [...] Interface, Radiant Results - 06/23/2018 11:[address] Chest and Abdomen Clinical Indication:62 years [...] Phone Number [facility] RESULTS * CT CHEST W CONTRAST (06/23/2018 10:16 AM) Only the most recent of 2 results within the time period is included. Impressions Performed At Chest: [facility] RAD RESULTS [...] Interface, Radiant Results - 06/23/2018 11:[address] Chest and Abdomen Clinical Indication:62 years [...] on 06/23/2018 10:36 AM. Performing Organization Address City/[facility] Phone Number [facility] * POC CREATININE, RAD (06/23/2018 9:48 AM) Only the most recent of 2 results within the time period is included. Creatinine, POC 0.5 0.4 - 1.24 MG/DL MAIN LAB Performing Organization Address [facility] Phone Number MA[facility] LAB [address] [place] [address] * ALPHA FETO PROTEIN (AFP) (06/23/2018 9:46 AM) Only the most recent of 2 results within the time period is included. Alpha Feto Protein 2.4 0.0 - 15.0 NG/ML MA[facility] Specimen Blood Performing Organization Address [facility] Phone Number MA[facility] LAB [address] [place] [phone] * PROTIME INR (PT) (06/23/2018 9:46 AM) Only the most recent of 3 results within the time period is included. INR 1.3 (H) 0.8 - 1.2 MA[facility] LAB Specimen Blood Performing Organization Address [place] Phone Number [facility] [address] [phone] * CBC AND DIFF (06/23/2018 9:46 AM) Only the most recent of 4 results within the time period is included. White Blood Cells 3.7 (L) 4.5 - 11.0 K/UL [facility] RBC 3.63 (L) 4.4 - 5.5 [...] [facility] Specimen Blood Performing Organization Address City/State/Zipcode Phone Number [facility] [address] [place] [address] * COMPREHENSIVE METABOLIC PANEL (06/23/2018 9:46 AM) Only the most recent of 4 results within the time period is included. Sodium 135 (L) 137 - 147 MMOL/L [facility] Potassium 3.8 3.5 - 5.1 MMOL/L [facility] Chloride 105 98 - 110 MMOL/L [...] Anion Gap 2 (L) 3 - 12 [facility] eGFR Non >60 >60 mL/min [facility] Comment: The eGFR is not validated for use in drug dosing adjustments.Continue to use estimated creatinine clearance per dosing reference text.Please contact the Clinical Pharmacist for questions. eGFR >60 >60 mL/min [facility] Comment: The eGFR is not validated for use in drug dosing adjustments.Continue to use estimated creatinine clearance per dosing reference text.Please contact the Clinical Pharmacist for questions. Specimen Blood Performing Organization Address City/[facility]/Zipcode Phone Number [facility] [address] [place] [address] * BASIC METABOLIC PANEL (06/02/2018 10:30 AM) Sodium 138 [facility] Potassium 3.9 [facility] Chloride 104 [facility] CO2 28.0 [facility] Glucose 180 (H) 60 - 125 [facility] Blood Urea Nitrogen 10 [facility] Creatinine 0.5 (L) 0.6 - 1.5 [facility] eGFR Non 163 [facility] Anion Gap 10 [facility] Calcium 8.2 (L) 8.5 - 10.8 [facility] Specimen Blood Narrative Performed At [facility] Outside Lab Verified by Chris Granados on 06/03/2018. Performing Organization Address City/[facility]/Zipcode Phone Number [facility] INTER[facility] * TSH WITH FREE T4 REFLEX (04/22/2018 11:29 AM) TSH 4.500 0.35 - 5.00 MCU/ML MAIN LAB Performing Organization Address City/[facility]/Zipcode Phone Number MAIN LAB [address] [place] [address] * IR CENTRAL VENOUS CATHETER (04/22/2018 10:34 AM) Impressions Performed At Successful image-guided placement of port catheter. [facility] RESULTS I, Jeffy Holbrook M.D, the attending radiologist, was present for the critical and salinas portions of the procedure with a midlevel, resident, and/or fellow participating.Overlapping portions were non salinas and I was immediately available.I interpret the critical and salinas portion of this procedure to have been needle access. @TT Approved by Yosvany Bacon M.D. on 04/23/2018 9:46 AM By my electronic signature, I attest that I have personally reviewed the images for this examination and formulated the interpretations and opinions expressed in this report Finalized by Jeffy Holbrook M.D. on 04/23/2018 10:03 AM. Dictated by Yosvany Bacon M.D. on 04/23/2018 9:45 AM. Narrative Performed At Chest Port Catheter Placement Under Ultrasound & Fluoroscopic Guidance [facility] RAD RESULTS CLINICAL INDICATION: Hepatocellular carcinoma, cirrhosis of liver without ascites, access for chemotherapy MEDICATIONS: Fentanyl 75 mcg IV ACCESS: Right Internal Jugular Vein CATHETER: PowerPort 8Fr x 24.5cm tip to cuff length CONTRAST: None FLUOROSCOPY DOSE:20 mGy COMPLICATIONS: None TECHNIQUE:Informed written consent was obtained after explaining the risks and benefits of the procedure. With patient in the supine position, the patient's right neck and upper chest were prepped and draped in the usual sterile fashion. The skin and subcutaneous tissues overlying the right internal jugular vein were infiltrated with 2% Lidocaine without epinephrine.Under ultrasound guidance, the right internal jugular vein was successfully cannulated with a micropuncture needle and a 0.018 wire was advanced through the needle into the vein.An ultrasound image was saved to PACS for documentation.The needle was exchanged for a 5 Martiniquais coaxial dilator. The inner dilator and the wire were removed and an 0.035 Amplatz superstiff wire was advanced into the IVC. A 8 Martiniquais peel-away sheath was placed. Attention was turned to the creation of a subcutaneous port pocket.2% Lidocaine with epinephrine were infiltrated along a 10-12 cm tract caudal and lateral to the sheath entry site.A second dermatotomy was made.Blunt dissection was used to create a small subcutaneous pocket. The port hub was placed within the pocket and the tunneling tool/catheter was passed and pulled through the subcutaneous tunnel. The catheter was advanced through the peel- away sheath and positioned centrally using fluoroscopy.The sheath was removed.The port pocket was irrigated with normal saline and then was closed with 2-0 Vicryl.The venotomy site was closed with Dermabond. The patient tolerated the procedure well and remained in stable condition throughout the stay in the angiography suite.The catheter ports were flushed, heparinized , and a sterile dressing was applied. FINDINGS: 1. Patent right internal jugular vein by ultrasound. An ultrasound image was saved to PACS for documentation. 2. Tip of the catheter terminates in the right atrium. Procedure Note Interface, Radiant Results - 04/23/2018 10:06 AM CDT Chest Port Catheter Placement Under Ultrasound & Fluoroscopic Guidance CLINICAL INDICATION: Hepatocellular carcinoma, cirrhosis of liver without ascites, access for chemotherapy MEDICATIONS: Fentanyl 75 mcg IV ACCESS: Right Internal Jugular Vein CATHETER: PowerPort 8Fr x 24.5cm tip to cuff length CONTRAST: None FLUOROSCOPY DOSE: 20 mGy COMPLICATIONS: None TECHNIQUE: Informed written consent was obtained after explaining the risks and benefits of the procedure. With patient in the supine position, the patient' s right neck and upper chest were prepped and draped in the usual sterile fashion. The skin and subcutaneous tissues overlying the right internal jugular vein were infiltrated with 2% Lidocaine without epinephrine. Under ultrasound guidance, the right internal jugular vein was successfully cannulated with a micropuncture needle and a 0.018 wire was advanced through the needle into the vein. An ultrasound image was saved to PACS for documentation. The needle was exchanged for a 5 Martiniquais coaxial dilator. The inner dilator and the wire were removed and an 0.035 Amplatz superstiff wire was advanced into the IVC. A 8 Martiniquais peel-away sheath was placed. Attention was turned to the creation of a subcutaneous port pocket. 2% Lidocaine with epinephrine were infiltrated along a 10-12 cm tract caudal and lateral to the sheath entry site. A second dermatotomy was made. Blunt dissection was used to create a small subcutaneous pocket. The port hub was placed within the pocket and the tunneling tool/catheter was passed and pulled through the subcutaneous tunnel. The catheter was advanced through the peel- away sheath and positioned centrally using fluoroscopy. The sheath was removed. The port pocket was irrigated with normal saline and then was closed with 2-0 Vicryl. The venotomy site was closed with Dermabond. The patient tolerated the procedure well and remained in stable condition throughout the stay in the angiography suite. The catheter ports were flushed, heparinized, and a sterile dressing was applied. FINDINGS: 1. Patent right internal jugular vein by ultrasound. An ultrasound image was saved to PACS for documentation. 2. Tip of the catheter terminates in the right atrium. IMPRESSION Successful image-guided placement of port catheter. Jeffy Cardona M.D, the attending radiologist, was present for the critical and salinas portions of the procedure with a midlevel, resident, and/or fellow participating. Overlapping portions were non salinas and I was immediately available. I interpret the critical and salinas portion of this procedure to have been needle access. @TT Approved by Yosvany Bacon M.D. on 04/23/2018 9:46 AM By my electronic signature, I attest that I have personally reviewed the images for this examination and formulated the interpretations and opinions expressed in this report Finalized by Jeffy Holbrook M.D. on 04/23/2018 10:03 AM. Dictated by Yosvany aBcon M.D. on 04/23/2018 9:45 AM. Performing Organization Address City/State/Zipcode Phone Number [facility] * POC GLUCOSE (04/22/2018 9:23 AM) Glucose, POC 151 (H) 70 - 100 MG/DL [facility] Performing Organization Address City/[facility]/Zipcode Phone Number [facility] [address] [place] [address] * US DOPPLER ABD PELV RETROPER COMP (04/14/2018 11:59 AM) Impressions Performed At Cirrhotic liver morphology. Please see separately dictated same-day CT abdomen [facility] for full discussion of liver parenchyma. Persistent moderate intrahepatic biliary duct dilatation. Patent TIPS without evidence of TIPS stenosis. Portal hypertension with splenomegaly. There is no ascites. Approved by Celso Hernandez M.D. on 04/14/2018 3:17 PM By my electronic signature, I attest that I have personally reviewed the images for this examination and formulated the interpretations and opinions expressed in this report Finalized by Verenice Bishop M.D. on 04/14/2018 5:24 PM. Dictated by Celso Hernandez M.D. on 04/14/2018 1:13 PM. Narrative Performed At Abdominal Ultrasound with Doppler [facility] Clinical Indication: Male, 62 years; monitor TIPS patency. Alcoholic cirrhosis of liver, end-stage liver disease, status post TIPS. Hepatocellular carcinoma , hepatic encephalopathy. Technique: Multiple grayscale sonographic images were obtained through the abdomen with additional color and spectral Doppler acquisitions. Comparison: CT chest abdomen pelvis with contrast same day; ultrasound abdomen external November 25, 2017 Findings: Liver and Biliary System: Heterogeneous, attenuating, cirrhotic nodular contour, normal size measuring 17.3 cm. Heterogeneous nodule within the left lobe of the liver. Intrahepatic biliary ductal dilatation.The common duct measures 0.5 cm.The gallbladder is unremarkable. Main portal vein: The TIPS extends into the main portal vein. The right and left portal veins are not confidently seen though a small caliber tortuous venous structure is noted in the region of the right portal vein. Splenic vein: Normal direction of flow in the splenic hilum. Caudal TIPS: Velocities range 120-138 cm/sec. Mid TIPS: Velocity 194 cm/sec. Cephalic TIPS: Velocities range 166-196 cm/sec. IVC: Patent, normal pulsatility. Hepatic veins: Patent, reduced pulsatility. Hepatic arteries: Normal systolic acceleration, proper hepatic artery resistive index is 0.76. Pancreas: Obscured by bowel gas. Spleen: Mildly enlarged measuring 15.4 cm. The parenchyma is heterogeneous, please see same-day CT of abdomen for further discussion. Aorta: Visualized portions of the aorta are normal in caliber. Kidneys: The right kidney measures 13.3 x 6.4 cm.The left kidney measures 12.3 x 5.7 cm..No hydronephrosis. Peritoneal Space: The distended urinary bladder is unremarkable. No abdominopelvic ascites. Procedure Note Interface, Radiant Results - 04/14/2018 5:27 PM CDT Abdominal Ultrasound with Doppler Clinical Indication: Male, 62 years; monitor TIPS patency. Alcoholic cirrhosis of liver, end-stage liver disease, status post TIPS. Hepatocellular carcinoma, hepatic encephalopathy. Technique: Multiple grayscale sonographic images were obtained through the abdomen with additional color and spectral Doppler acquisitions. Comparison: CT chest abdomen pelvis with contrast same day; ultrasound abdomen external November 25, 2017 Findings: Liver and Biliary System: Heterogeneous, attenuating, cirrhotic nodular contour , normal size measuring 17.3 cm. Heterogeneous nodule within the left lobe of the liver. Intrahepatic biliary ductal dilatation. The common duct measures 0.5 cm. The gallbladder is unremarkable. Main portal vein: The TIPS extends into the main portal vein. The right and left portal veins are not confidently seen though a small caliber tortuous venous structure is noted in the region of the right portal vein. Splenic vein: Normal direction of flow in the splenic hilum. Caudal TIPS: Velocities range 120-138 cm/sec. Mid TIPS: Velocity 194 cm/sec. Cephalic TIPS: Velocities range 166-196 cm/sec. IVC: Patent, normal pulsatility. Hepatic veins: Patent, reduced pulsatility. Hepatic arteries: Normal systolic acceleration, proper hepatic artery resistive index is 0.76. Pancreas: Obscured by bowel gas. Spleen: Mildly enlarged measuring 15.4 cm. The parenchyma is heterogeneous, please see same-day CT of abdomen for further discussion. Aorta: Visualized portions of the aorta are normal in caliber. Kidneys: The right kidney measures 13.3 x 6.4 cm. The left kidney measures 12.3 x 5.7 cm.. No hydronephrosis. Peritoneal Space: The distended urinary bladder is unremarkable. No abdominopelvic ascites. IMPRESSION Cirrhotic liver morphology. Please see separately dictated same-day CT abdomen for full discussion of liver parenchyma. Persistent moderate intrahepatic biliary duct dilatation. Patent TIPS without evidence of TIPS stenosis. Portal hypertension with splenomegaly. There is no ascites. Approved by Celso Hernandez M.D. on 04/14/2018 3:17 PM By my electronic signature, I attest that I have personally reviewed the images for this examination and formulated the interpretations and opinions expressed in this report Finalized by Verenice Bishop M.D. on 04/14/2018 5:24 PM. Dictated by Celso Hernandez M.D. on 04/14/2018 1:13 PM. Performing Organization Address City/State/Zipcode Phone Number [facility] * US ABDOMEN COMPLETE (04/14/2018 11:59 AM) Impressions Performed At Cirrhotic liver morphology. Please see separately dictated same-day CT abdomen [facility] for full discussion of liver parenchyma. Persistent moderate intrahepatic biliary duct dilatation. Patent TIPS without evidence of TIPS stenosis. Portal hypertension with splenomegaly. There is no ascites. Approved by Celso Hernandez M.D. on 04/14/2018 3:17 PM By my electronic signature, I attest that I have personally reviewed the images for this examination and formulated the interpretations and opinions expressed in this report Finalized by Verenice Bishop M.D. on 04/14/2018 5:24 PM. Dictated by Celso Hernandez M.D. on 04/14/2018 1:13 PM. Narrative Performed At Abdominal Ultrasound with Doppler [facility] Clinical Indication: Male, 62 years; monitor TIPS patency. Alcoholic cirrhosis of liver, end-stage liver disease, status post TIPS. Hepatocellular carcinoma , hepatic encephalopathy. Technique: Multiple grayscale sonographic images were obtained through the abdomen with additional color and spectral Doppler acquisitions. Comparison: CT chest abdomen pelvis with contrast same day; ultrasound abdomen external November 25, 2017 Findings: Liver and Biliary System: Heterogeneous, attenuating, cirrhotic nodular contour, normal size measuring 17.3 cm. Heterogeneous nodule within the left lobe of the liver. Intrahepatic biliary ductal dilatation.The common duct measures 0.5 cm.The gallbladder is unremarkable. Main portal vein: The TIPS extends into the main portal vein. The right and left portal veins are not confidently seen though a small caliber tortuous venous structure is noted in the region of the right portal vein. Splenic vein: Normal direction of flow in the splenic hilum. Caudal TIPS: Velocities range 120-138 cm/sec. Mid TIPS: Velocity 194 cm/sec. Cephalic TIPS: Velocities range 166-196 cm/sec. IVC: Patent, normal pulsatility. Hepatic veins: Patent, reduced pulsatility. Hepatic arteries: Normal systolic acceleration, proper hepatic artery resistive index is 0.76. Pancreas: Obscured by bowel gas. Spleen: Mildly enlarged measuring 15.4 cm. The parenchyma is heterogeneous, please see same-day CT of abdomen for further discussion. Aorta: Visualized portions of the aorta are normal in caliber. Kidneys: The right kidney measures 13.3 x 6.4 cm.The left kidney measures 12.3 x 5.7 cm..No hydronephrosis. Peritoneal Space: The distended urinary bladder is unremarkable. No abdominopelvic ascites. Procedure Note Interface, Radiant Results - 04/14/2018 5:27 PM CDT Abdominal Ultrasound with Doppler Clinical Indication: Male, 62 years; monitor TIPS patency. Alcoholic cirrhosis of liver, end-stage liver disease, status post TIPS. Hepatocellular carcinoma, hepatic encephalopathy. Technique: Multiple grayscale sonographic images were obtained through the abdomen with additional color and spectral Doppler acquisitions. Comparison: CT chest abdomen pelvis with contrast same day; ultrasound abdomen external November 25, 2017 Findings: Liver and Biliary System: Heterogeneous, attenuating, cirrhotic nodular contour , normal size measuring 17.3 cm. Heterogeneous nodule within the left lobe of the liver. Intrahepatic biliary ductal dilatation. The common duct measures 0.5 cm. The gallbladder is unremarkable. Main portal vein: The TIPS extends into the main portal vein. The right and left portal veins are not confidently seen though a small caliber tortuous venous structure is noted in the region of the right portal vein. Splenic vein: Normal direction of flow in the splenic hilum. Caudal TIPS: Velocities range 120-138 cm/sec. Mid TIPS: Velocity 194 cm/sec. Cephalic TIPS: Velocities range 166-196 cm/sec. IVC: Patent, normal pulsatility. Hepatic veins: Patent, reduced pulsatility. Hepatic arteries: Normal systolic acceleration, proper hepatic artery resistive index is 0.76. Pancreas: Obscured by bowel gas. Spleen: Mildly enlarged measuring 15.4 cm. The parenchyma is heterogeneous, please see same-day CT of abdomen for further discussion. Aorta: Visualized portions of the aorta are normal in caliber. Kidneys: The right kidney measures 13.3 x 6.4 cm. The left kidney measures 12.3 x 5.7 cm.. No hydronephrosis. Peritoneal Space: The distended urinary bladder is unremarkable. No abdominopelvic ascites. IMPRESSION Cirrhotic liver morphology. Please see separately dictated same-day CT abdomen for full discussion of liver parenchyma. Persistent moderate intrahepatic biliary duct dilatation. Patent TIPS without evidence of TIPS stenosis. Portal hypertension with splenomegaly. There is no ascites. Approved by Celso Hernandez M.D. on 04/14/2018 3:17 PM By my electronic signature, I attest that I have personally reviewed the images for this examination and formulated the interpretations and opinions expressed in this report Finalized by Verenice Bishop M.D. on 04/14/2018 5:24 PM. Dictated by Celso Hernandez M.D. on 04/14/2018 1:13 PM. Performing Organization Address City/State/Zipcode Phone Number [facility] * CT ABD WO/W PELVIS W (04/14/2018 10:41 AM) Impressions Performed At Chest: [facility] 1. INCREASE IN SIZE OF SCATTERED PULMONARY NODULES IN BOTH LUNGS WITH DEVELOPMENT OF TINY NEW PULMONARY NODULE IN RIGHT UPPER LOBE, REFLECTIVE OF PROGRESSION OF PATIENT'S KNOWN PULMONARY METASTASIS FROM HEPATOCELLULAR CARCINOMA. 2. NO SIGNIFICANT THORACIC ADENOPATHY. Abdomen and Pelvis: 1. STABLE SIZE OF TREATED SEGMENT 4A LESION WITH NOW NODULAR AREA OF ECCENTRIC ENHANCEMENT SUPERIOR MEDIALLY WHICH SHOWS NO SIGNIFICANT WASHOUT. LI RADS TREATED LESION WITH INTERMEDIATE SUSPICION FOR RECURRENT TUMOR. 2. STABLE SIZE OF PREVIOUSLY NOTED TREATED SEGMENT 4B LESION WITH NOW NODULAR ENHANCEMENT PERIPHERALLY WITH NO SIGNIFICANT WASHOUT. LATERAL TREATED LESION WITH INTERMEDIATE SUSPICION FOR RECURRENT TUMOR. 3. NEW FOCUS OF NODULAR ENHANCEMENT IN SEGMENT 5 OF THE LIVER WHICH SHOWS NO SIGNIFICANT WASHOUT. LI RADS 3 4. CIRRHOSIS WITH PORTAL HYPERTENSION MANIFESTED BY MILD TO MODERATE SPLENOMEGALY AND PORTOSYSTEMIC VARICES AND NOW MILD PARAESOPHAGEAL VARICES. 5. NO SIGNIFICANT ABDOMINAL/PELVIC ADENOPATHY OR ASCITES. Finalized by Neftali Velazquez M.D. on 04/14/2018 12:07 PM. Dictated by Neftali Velazquez M.D. on 04/14/2018 10:58 AM. Narrative Performed At CT Chest, Abdomen and Pelvis [facility] Clinical Indication:62 years old Male hepatocellular carcinoma. 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 Technique: Multiple contiguous axial images were obtained through the chest, abdomen and pelvis following the administration of IV contrast material. Noncontrast as well as hepatic arterial, portal venous and delayed imaging was obtained. Post processing coronal and sagittal reconstruction images were made from the axial images. IV contrast: Omnipaque 350. Bowel contrast:Water Comparison: Prior outside chest CT dated 11/25/[address] of the abdomen and pelvis dated 09/28/2017. Chest Findings: Lower neck: Unremarkable. Axilla, Mediastinum and Nikki: No significant adenopathy. Mild paraesophageal varices are identified. Heart and Great Vessels: The heart is normal in size. No pericardial effusion is noted. The thoracic aorta is normal in caliber with mild atherosclerotic plaques about the aortic arch and descending thoracic aorta. Trachea and Major Bronchi: The major airways are widely patent. Lungs and Pleura: There is interval increase in size of scattered pulmonary nodules in both lungs with new tiny pulmonary nodule in the right upper lobe (series 3 image 13). The dominant nodule in the right lower lobe now measures 2.3 cm in widest diameter compared to prior measurement of 1.9 cm. This was biopsied and was proven to be metastatic hepatocellular carcinoma. Mild emphysema again noted. No pneumothorax, new acute pulmonary infiltrates, consolidation or pleural effusion is noted. Chest Wall and Osseous Structures: Thoracic spondylosis again noted. No suspicious destructive osseous lesions. Abdomen and Pelvis Findings: Liver and Biliary system: The liver remains to be normal in size with cirrhotic nodular contour. TIPS remains been placed. Moderate severe intrahepatic biliary ductal dilatation is again noted. Previously noted partly occlusive thrombus in the upper SMV and midline splenic vein on the prior exam of 09/23/2016 is no longer apparent on the current study. The gallbladder is nondistended with no radiopaque stones within. Liver lesions: Segment 4A lesion (series 3 image 52): previously treated lesion has slightly decreased in size now measuring 3.7 cm in widest diameter compared to prior measurement of 3.8 cm from prior examination of 09/28/2017. There appears to be a nodular area of eccentric enhancement superior medially (series 2 image 52, series 3 image 89 and series 6 image 9), with no significant washout. Segment IVb lesion: Series 3 image 55): Previously treated lesion now measures 2.9 cm x 2.7 cm and compares to prior measurement of approximately 2.6 cm x 2.5 cm. There appears to be nodular enhancement peripherally which demonstrates no significant washout on portal venous and delayed phase imaging (series 3 image 94 and series 6 image 11). Region of low density along the periphery of the inferior lateral aspect of the right lobe of the liver is unchanged over multiple prior examinations (series 3 image 107) likely reflecting area of scarring. New focus of nodular hyperenhancement in segment 5 of the liver measuring 1.7 cm in diameter (series 3 image 60) which shows progressive increase enhancement on portal venous phase and delayed imaging (series 3 image 100 and series 6 image 19). Spleen: The spleen remains to be mild to moderately enlarged measuring 16.5 cm in length. No focal splenic [...] space: No significant mesenteric adenopathy is identified. No significant abdominal or pelvic ascites is appreciated. Pelvis: No significant inguinal or iliac adenopathy is identified. The urinary bladder is adequately distended with thin ortega. The prostate gland is normal in size with small dystrophic calcifications. Seminal vesicles appear unremarkable. Abdominal wall and Osseous Structures: Thoracolumbar spondylosis again noted. Compression deformity of L1 has not simply changed from prior examination. Prominent Schmorl's node is identified about the superior endplate of L3. No suspicious destructive osseous lesions. Procedure Note Interface, Radiant Results - 04/14/2018 12:[address] Chest, Abdomen and Pelvis Clinical Indication:62 years old Male hepatocellular carcinoma. 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 Technique: Multiple contiguous axial images were obtained through the chest, abdomen and pelvis following the administration of IV contrast material. Noncontrast as well as hepatic arterial, portal venous and delayed imaging was obtained. Post processing coronal and sagittal reconstruction images were made from the axial images. IV contrast: Omnipaque 350. Bowel contrast: Water Comparison: Prior outside chest CT dated 11/25/[address] of the abdomen and pelvis dated 09/28/2017. Chest Findings: Lower neck: Unremarkable. Axilla, Mediastinum and Nikki: No significant adenopathy. Mild paraesophageal varices are identified. Heart and Great Vessels: The heart is normal in size. No pericardial effusion is noted. The thoracic aorta is normal in caliber with mild atherosclerotic plaques about the aortic arch and descending thoracic aorta. Trachea and Major Bronchi: The major airways are widely patent. Lungs and Pleura: There is interval increase in size of scattered pulmonary nodules in both lungs with new tiny pulmonary nodule in the right upper lobe ( series 3 image 13). The dominant nodule in the right lower lobe now measures 2.3 cm in widest diameter compared to prior measurement of 1.9 cm. This was biopsied and was proven to be metastatic hepatocellular carcinoma. Mild emphysema again noted. No pneumothorax, new acute pulmonary infiltrates, consolidation or pleural effusion is noted. Chest Wall and Osseous Structures: Thoracic spondylosis again noted. No suspicious destructive osseous lesions. Abdomen and Pelvis Findings: Liver and Biliary system: The liver remains to be normal in size with cirrhotic nodular contour. TIPS remains been placed. Moderate severe intrahepatic biliary ductal dilatation is again noted. Previously noted partly occlusive thrombus in the upper SMV and midline splenic vein on the prior exam of 09/23/2016 is no longer apparent on the current study. The gallbladder is nondistended with no radiopaque stones within. Liver lesions: Segment 4A lesion (series 3 image 52): previously treated lesion has slightly decreased in size now measuring 3.7 cm in widest diameter compared to prior measurement of 3.8 cm from prior examination of 09/28/2017. There appears to be a nodular area of eccentric enhancement superior medially (series 2 image 52, series 3 image 89 and series 6 image 9), with no significant washout. Segment IVb lesion: Series 3 image 55): Previously treated lesion now measures 2.9 cm x 2.7 cm and compares to prior measurement of approximately 2.6 cm x 2.5 cm. There appears to be nodular enhancement peripherally which demonstrates no significant washout on portal venous and delayed phase imaging (series 3 image 94 and series 6 image 11). Region of low density along the periphery of the inferior lateral aspect of the right lobe of the liver is unchanged over multiple prior examinations (series 3 image 107) likely reflecting area of scarring. New focus of nodular hyperenhancement in segment 5 of the liver measuring 1.7 cm in diameter (series 3 image 60) which shows progressive increase enhancement on portal venous phase and delayed imaging (series 3 image 100 and series 6 image 19). Spleen: The spleen remains to be mild to moderately enlarged measuring 16.5 cm in length. No focal splenic [...] space: No significant mesenteric adenopathy is identified. No significant abdominal or pelvic ascites is appreciated. Pelvis: No significant inguinal or iliac adenopathy is identified. The urinary bladder is adequately distended with thin ortega. The prostate gland is normal in size with small dystrophic calcifications. Seminal vesicles appear unremarkable. Abdominal wall and Osseous Structures: Thoracolumbar spondylosis again noted. Compression deformity of L1 has not simply changed from prior examination. Prominent Schmorl's node is identified about the superior endplate of L3. No suspicious destructive osseous lesions. IMPRESSION Chest: 1. INCREASE IN SIZE OF SCATTERED PULMONARY NODULES IN BOTH LUNGS WITH DEVELOPMENT OF TINY NEW PULMONARY NODULE IN RIGHT UPPER LOBE, REFLECTIVE OF PROGRESSION OF PATIENT'S KNOWN PULMONARY METASTASIS FROM HEPATOCELLULAR CARCINOMA. 2. NO SIGNIFICANT THORACIC ADENOPATHY. Abdomen and Pelvis: 1. STABLE SIZE OF TREATED SEGMENT 4A LESION WITH NOW NODULAR AREA OF ECCENTRIC ENHANCEMENT SUPERIOR MEDIALLY WHICH SHOWS NO SIGNIFICANT WASHOUT. LI RADS TREATED LESION WITH INTERMEDIATE SUSPICION FOR RECURRENT TUMOR. 2. STABLE SIZE OF PREVIOUSLY NOTED TREATED SEGMENT 4B LESION WITH NOW NODULAR ENHANCEMENT PERIPHERALLY WITH NO SIGNIFICANT WASHOUT. LATERAL TREATED LESION WITH INTERMEDIATE SUSPICION FOR RECURRENT TUMOR. 3. NEW FOCUS OF NODULAR ENHANCEMENT IN SEGMENT 5 OF THE LIVER WHICH SHOWS NO SIGNIFICANT WASHOUT. LI RADS 3 4. CIRRHOSIS WITH PORTAL HYPERTENSION MANIFESTED BY MILD TO MODERATE SPLENOMEGALY AND PORTOSYSTEMIC VARICES AND NOW MILD PARAESOPHAGEAL VARICES. 5. NO SIGNIFICANT ABDOMINAL/PELVIC ADENOPATHY OR ASCITES. Finalized by Neftali Velazquez M.D. on 04/14/2018 12:07 PM. Dictated by Neftali Velazquez M.D. on 04/14/2018 10:58 AM. Performing Organization Address City/State/Zipcode Phone Number [facility] RESULTS from Last 3 Months
--- OUTSIDE RECORDS SUMMARY | 2018-07-14 14:56 | XMS REPORT | Encounter Summary ---
Author Author [facility] Organization [facility] Address Unknown Phone Unavailable Care Team Providers Care Pbx Operator Name Role Phone Buster Erazo MD Unavailable Michelle Valencia MD Unavailable Jeffy Holbrook MD Unavailable Jass Paris MD Unavailable Lucy Guzmán FUNERAL DRIVER Unavailable Tameka Juarez RN Unavailable Unavailable Ely Dunlap RN Unavailable Unavailable Mely Ford RN Unavailable Lisa Rae RN Unavailable Unavailable Promise Wiseman RN Unavailable Unavailable Mark Dixon MD Unavailable Radha Hung FUNERAL DRIVER Unavailable Cecile Foote RN Unavailable Whitney Guy [...] Griffiths MD 3 Ayesha Lyn MD PCP Encounter Details Date Type Department Care Team Description [facility] [place] [facility] [address] [place] [address] [place] [address] [phone] Social History Tobacco Use Types Packs/Day Years [...] Procedure Pass Oncology as of this encounter Visit Diagnoses Not on filein this encounter
--- OUTSIDE RECORDS SUMMARY | 2018-07-14 14:57 | XMS REPORT | Encounter Summary ---
Author Author [facility] Organization [facility] Address Unknown Phone Unavailable Care Team Providers Care Hammer Mill Operator Name Role Phone Buster Erazo MD Unavailable Michelle Valencia MD Unavailable Jeffy Holbrook MD Unavailable Jass Paris MD Unavailable Lucy Guzmán TRUCK CAR AND BUS CLEANER Unavailable Tameka Juarez RN Unavailable Unavailable Ely Dunlap RN Unavailable Unavailable Mely Ford RN Unavailable Lisa Rae RN Unavailable Unavailable Promise Wiseman RN Unavailable Unavailable Mark Dixon MD Unavailable Radha Hung TRUCK CAR AND BUS CLEANER Unavailable Cecile Foote RN Unavailable Whitney Guy [...] Details Date Type Department Care Team Description 05/20/2018 Documentation [facility] for Mely Jaeger APRN Transplantation-Hepatolog [address] y Clinic [place] [address] [facility] [address] [place] [address] [address] [facility] [phone] [place] [address] Social History Tobacco Use Types Packs/Day Years [...] impairment: No 02/11/2018 as of this encounter Progress Notes * Mely Jaeger APRN - 05/20/2018 10:55 AM CDT This provider returned sister's call. [facility] oncologist, Dr. Griffiths, in [place] will not give pt immunotherapy infusion given he has had significant amount of weight gain - ascites. She is concerned TIPS has malfunctioned. Sister states pt had thrown away his diuretics and not following 2 gm sodium diet restriction. She has since convinced him to restart his diuretics and encouraging compliance with low sodium diet. He has lost 13 lbs in the last several weeks. Infusion was due this past Thursday. Discussed US of abdomen with doppler study was recently performed at [facility] 04/14/18 and showed patent TIPS. Plan to fax copy of report to Dr. Griffiths's office. I do not think repeat imaging is warranted at this time given pt has had weight loss since back on diuretic therapy. This provider contacted Dr. Tunde Garcia's nurse at [phone], for fax number to send copy of report. Fax number is [phone]. Radha stated she is unsure as to when the infusion will be rescheduled as Dr. Griffiths is out of the [place] and will not return until next Thursday. Dr. Griffiths will review report and decide if pt should proceed with infusion. Radha will contact pt' s sister, Brenda, and let her know of the plan. in this encounter Plan of Treatment Date Type Specialty Care Team Description 06/23/2018 Procedure Pass Oncology 06/23/2018 Procedure Pass Oncology as of this encounter Visit Diagnoses Not on filein this encounter
--- OUTSIDE RECORDS SUMMARY | 2018-07-14 14:57 | XMS REPORT | Encounter Summary ---
Author Author [facility] Organization [facility] Address Unknown Phone Unavailable Care Team Providers Care Physician Non Invasive Cardiologist Name Role Phone Buster Erazo MD Unavailable Michelle Valencia MD Unavailable Jeffy Holbrook MD Unavailable Jass Paris MD Unavailable Lucy Guzmán INVESTIGATIVE AGENT Unavailable Tameka Juarez RN Unavailable Unavailable Ely Dunlap RN Unavailable Unavailable Mely Ford RN Unavailable Lisa Rae RN Unavailable Unavailable Promise Wiseman RN Unavailable Unavailable Mark Dixon MD Unavailable Radha Hung INVESTIGATIVE AGENT Unavailable Cecile Foote RN Unavailable Whitney Guy [...] Details Date Type Department Care Team Description 06/03/2018 Orders Only Center for Joseph Guzamn RN End-stage liver disease Transplantation-Hepatolog (HCC) (Primary Dx) y [facility] [address]st [address] [place] [address] Social History Tobacco Use Types [...] impairment: No 02/11/2018 as of this encounter Plan of Treatment Date Type Specialty Care Team Description 06/23/2018 Procedure Pass Oncology 06/23/2018 Procedure Pass Oncology as of this encounter Results * BASIC METABOLIC PANEL (06/02/2018 10:30 AM) [...] Chris Granados on 06/03/2018. Performing Organization Address City/State/Zipcode Phone Number LABDE INTERFACE in this encounter Visit Diagnoses Diagnosis End-stage liver disease (HCC) - Primary Other sequelae of chronic liver disease
--- OUTSIDE RECORDS SUMMARY | 2018-07-14 14:57 | XMS REPORT | Encounter Summary ---
Author Author [facility] Organization [facility] Address Unknown Phone Unavailable Care Team Providers Care Dobie Worker Name Role Phone Buster Erazo MD Unavailable Michelle Valencia MD Unavailable Jeffy Holbrook MD Unavailable Jass Paris MD Unavailable Lucy Guzmán KNIFE BLADE POLISHER Unavailable Tameka Juarez RN Unavailable Unavailable Ely Dunlap RN Unavailable Unavailable Mely Ford RN Unavailable Lisa Rae RN Unavailable Unavailable Promise Wiseman RN Unavailable Unavailable Mark Dixon MD Unavailable Radha Hung KNIFE BLADE POLISHER Unavailable Cecile Foote RN Unavailable Whitney Guy [...] 3 Ayesha Lyn MD PCP Reason for Visit * Reason Comments Results Encounter Details Date Type Department Care Team Description 06/15/2018 Telephone Center for Joseph Guzman RN Results Transplantation-Hepatolog y Clinic [facility] [address] [place] [address] Social History Tobacco Use Types [...] impairment: No 02/11/2018 as of this encounter Miscellaneous Notes * Telephone Encounter - Joseph Guzman RN - 06/15/2018 12:26 PM PERMIT TECHNICIAN Discussed results with sister. Heron Marcelo next week will get labs then. in this encounter Plan of Treatment Date Type Specialty Care Team Description 06/23/2018 Procedure Pass Oncology 06/23/2018 Procedure Pass Oncology as of this encounter Visit Diagnoses Not on filein this encounter
--- OUTSIDE RECORDS SUMMARY | 2018-07-14 14:57 | XMS REPORT | Encounter Summary ---
Author Author [facility] Organization [facility] Address Unknown Phone Unavailable Care Team Providers Care Barrel Handler Name Role Phone Buster Erazo MD Unavailable Michelle Valencia MD Unavailable Jeffy Holbrook MD Unavailable Jass Paris MD Unavailable Lucy Guzmán HEAD OF BIOLOGY Unavailable Tameka Juarez RN Unavailable Unavailable Ely Dunlap RN Unavailable Unavailable Mely Ford RN Unavailable Lisa Rae RN Unavailable Unavailable Promise Wiseman RN Unavailable Unavailable Mark Dixon MD Unavailable Radha Hung HEAD OF BIOLOGY Unavailable Cecile Foote RN Unavailable Whitney Guy [...] PCP Reason for Visit * Reason Comments Follow-up Phone Call Labs done on 05/18 Encounter Details Date Type Department Care Team Description 05/27/2018 Telephone Center for Mely JaegerCESIA Follow-up Phone Call Transplantation-Hepatolog [address] (Labs done on 05/18) y Clinic [place] [address] [facility] 1st [place] [address] [address] [facility] [phone] [place] [address] Social History Tobacco Use Types [...] Telephone Encounter - Joseph Guzman RN - 05/27/2018 11:25 AM CDT Called Sister Love. No answer. LVM Called Kacy Galvez no answer. in this encounter Plan of Treatment Date Type Specialty Care Team Description 06/23/2018 Procedure Pass Oncology 06/23/2018 Procedure Pass Oncology as of this encounter Visit Diagnoses Not on filein this encounter
--- OUTSIDE RECORDS SUMMARY | 2018-07-14 14:57 | XMS REPORT | Encounter Summary ---
Author Author [facility] Organization [facility] Address Unknown Phone Unavailable Care Team Providers Care Chief Resource Officer Name Role Phone Buster Erazo MD Unavailable Michelle Valencia MD Unavailable Jeffy Holbrook MD Unavailable Jass Paris MD Unavailable Lucy Guzmán SOFTWARE ARCHITECT Unavailable Tameka Juarez RN Unavailable Unavailable Ely Dunlap RN Unavailable Unavailable Mely Ford RN Unavailable Lisa Rae RN Unavailable Unavailable Promise Wiseman RN Unavailable Unavailable Mark Dixon MD Unavailable Radha Hung SOFTWARE ARCHITECT Unavailable Cecile Foote RN Unavailable Whitney Guy [...] Details Date Type Department Care Team Description 05/03/2018 Procedure Pass [facility] Radiology [address] [facility] [place] [address] Social History Tobacco Use Types Packs/Day Years [...]
--- OUTSIDE RECORDS SUMMARY | 2018-07-14 14:57 | XMS REPORT | Encounter Summary ---
Author Author [facility] Organization [facility] Address Unknown Phone Unavailable Care Team Providers Care Materials Development Engineer Name Role Phone Buster Erazo MD Unavailable Michelle Valencia MD Unavailable Jeffy Holbrook MD Unavailable Jass Paris MD Unavailable Lucy Guzmán ACETYLENE OPERATOR Unavailable Tameka Juarez RN Unavailable Unavailable Ely Dunlap RN Unavailable Unavailable Mley Ford RN Unavailable Lisa Rae RN Unavailable Unavailable Promise Wiseman RN Unavailable Unavailable Mark Dixon MD Unavailable Radha Hung ACETYLENE OPERATOR Unavailable Cecile Foote RN Unavailable Whitney Guy [...] Team Description 06/03/2018 Orders Only Center for Chris Granados End-stage liver disease Transplantation-Hepatolog (HCC) y Clinic [facility] [address] [place] [address] Social History Tobacco Use Types [...] Procedure Name Priority Date/Time Associated Diagnosis Comments BASIC METABOLIC PANEL Routine 06/02/2018 End-stage liver disease Results for this 10:30 AM CDT (HCC) procedure are in the results section. in this encounter Results * BASIC METABOLIC PANEL [...] Visit Diagnoses Diagnosis End-stage liver disease (HCC) Other sequelae of chronic liver disease
--- OUTSIDE RECORDS SUMMARY | 2018-07-14 14:57 | XMS REPORT | Encounter Summary ---
Author Author [facility] Organization [facility] Address Unknown Phone Unavailable Care Team Providers Care Robotics Software Engineer Name Role Phone Buster Erazo MD Unavailable Michelle Valencia MD Unavailable Jeffy Holbrook MD Unavailable Jass Paris MD Unavailable Lucy Guzmán POWER PLANT OPERATORS SUPERVISOR Unavailable Tameka Juarez RN Unavailable Unavailable Ely Dunlap RN Unavailable Unavailable Mely Ford RN Unavailable Lisa Rae RN Unavailable Unavailable Promise Wiseman RN Unavailable Unavailable Mark Dixon MD Unavailable Radha Hung POWER PLANT OPERATORS SUPERVISOR Unavailable Cecile Foote RN Unavailable Whitney Guy [...] Details Date Type Department Care Team Description 06/09/2018 Orders Only [facility] Mariaelena Robertson MD Hepatocellular carcinoma [facility] [address] (HCC) (Primary Dx) Cancer Center [place] [address] [place] [address] [place], [place] [phone] Social History Tobacco Use Types Packs/Day Years [...] Oncology as of this encounter Results * PROTIME INR (PT) (06/23/2018 9:46 AM) INR 1.3 (H) 0.8 - 1.2 [facility] Specimen Blood Performing Organization Address City/State/Zipcode Phone Number [facility] [address] [place] [address] * COMPREHENSIVE METABOLIC PANEL (06/23/2018 9:46 AM) [...] for questions. Specimen Blood Performing Organization Address City/State/Zipcode Phone Number [facility] [address] [place] [address] * CBC AND DIFF (06/23/2018 9:46 AM) [...] Blood Performing Organization Address City/State/Zipcode Phone Number [facility] [address] [place] [address] * ALPHA FETO PROTEIN (AFP) (06/23/2018 9:46 AM) Alpha Feto Protein 2.4 0.0 - 15.0 NG/ML [facility] Specimen Blood Performing Organization Address City/State/Zipcode Phone Number [facility] [address] [place] [address] in this encounter Visit Diagnoses Diagnosis Hepatocellular carcinoma (HCC) - Primary Malignant neoplasm of liver, primary
--- OUTSIDE RECORDS SUMMARY | 2018-07-14 14:57 | XMS REPORT | Encounter Summary ---
Author Author [facility] Organization [facility] Address Unknown Phone Unavailable Care Team Providers Care Creative Resource Manager Name Role Phone Buster Erazo MD Unavailable Michelle Valencia MD Unavailable Jeffy Holbrook MD Unavailable Jass Paris MD Unavailable Lucy Guzmán APPLICATION SUPPORT LEAD Unavailable Tameka Juarez RN Unavailable Unavailable Ely Dunlap RN Unavailable Unavailable Mely Ford RN Unavailable Lisa Rae RN Unavailable Unavailable Promise Wiseman RN Unavailable Unavailable Mark Dixon MD Unavailable Radha Hung APPLICATION SUPPORT LEAD Unavailable Cecile Foote RN Unavailable Whitney Guy [...] Care Team Description 05/03/2018 Procedure Pass [facility] Radiology [address] [facility] [place] [place] [address] Social History Tobacco Use Types Packs/Day Years [...]
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
--- OUTSIDE RECORDS SUMMARY | 2018-07-14 14:57 | XMS REPORT | Encounter Summary ---
Author Author [facility] Organization [facility] Address Unknown Phone Unavailable Care Team Providers Care Feather Washer Name Role Phone Buster Erazo MD Unavailable Michelle Valencia MD Unavailable Jeffy Holbrook MD Unavailable Jass Paris MD Unavailable Lucy Guzmán MANAGER TRAFFIC Unavailable Tameka Juarez RN Unavailable Unavailable Ely Dunlap RN Unavailable Unavailable Mely Ford RN Unavailable Lisa Rae RN Unavailable Unavailable Promise Wiseman RN Unavailable Unavailable Mark Dixon MD Unavailable Radha Hung MANAGER TRAFFIC Unavailable Cecile Foote RN Unavailable Whitney Guy [...] PCP Reason for Visit * Reason Comments Cancer Follow up Encounter Details Date Type Department Care Team Description 05/31/2018 Telephone [facility] Mariaelena Robertson MD Cancer Follow up [facility] Ex[facility] [address] [facility] [place] [address] [place] [address] [place] [address] [phone] Social History Tobacco Use Types Packs/Day Years [...] encounter Miscellaneous Notes * Telephone Encounter - Lucy Swift RN - 05/31/2018 3:51 PM CDT Phoned Love who states Dr. Griffiths has ordered immunotherapy and he will get the 4 week injection next week. Love states they do not need anything from this office at this time. DONTE in this encounter Plan of Treatment Date Type Specialty Care Team Description 06/23/2018 Procedure Pass Oncology 06/23/2018 Procedure Pass Oncology as of this encounter Visit Diagnoses Not on filein this encounter
--- OUTSIDE RECORDS SUMMARY | 2018-07-14 14:57 | XMS REPORT | Encounter Summary ---
Author Author [facility] Organization [facility] Address Unknown Phone Unavailable Care Team Providers Care Materials Planner Name Role Phone Buster Erazo MD Unavailable Michelle Valencia MD Unavailable Jeffy Holbrook MD Unavailable Jass Paris MD Unavailable Lucy Guzmán MANAGER DIESEL Unavailable Tmaeka Juarez RN Unavailable Unavailable Ely Dunlap RN Unavailable Unavailable Mely Ford RN Unavailable Lisa Rae RN Unavailable Unavailable Promise Wiseman RN Unavailable Unavailable Mark Dixon MD Unavailable Radha Hung MANAGER DIESEL Unavailable Cecile Foote RN Unavailable Whitney Guy [...] Details Date Type Department Care Team Description 05/24/2018 Telephone [facility] Mariaelena Robertson MD Cancer Follow up [facility] Center - [facility] Exam [address] [facility] [place] [address] [place] [address] [place] [address] [phone] Social History Tobacco Use Types Packs/Day Years [...] encounter Miscellaneous Notes * Telephone Encounter - Neva Ann RN - 05/24/2018 11:28 AM CDT Attempt to follow up with patient sister regarding patient receiving treatment locally. No answer, left message. in this encounter Plan of Treatment Date Type Specialty Care Team Description 06/23/2018 Procedure Pass Oncology 06/23/2018 Procedure Pass Oncology as of this encounter Visit Diagnoses Not on filein this encounter
--- OUTSIDE RECORDS SUMMARY | 2018-07-14 14:57 | XMS REPORT | Encounter Summary ---
Author Author [facility] Organization [facility] Address Unknown Phone Unavailable Care Team Providers Care Menhaden Fishing Crew Member Name Role Phone Buster Erazo MD Unavailable Michelle Valencia MD Unavailable Jeffy Holbrook MD Unavailable Jass Paris MD Unavailable Lucy Guzmán ANALYST MARKET INTELLIGENCE Unavailable Tameka Juarez RN Unavailable Unavailable Ely Dunlap RN Unavailable Unavailable Mely Ford RN Unavailable Lisa Rae RN Unavailable Unavailable Promise Wiseman RN Unavailable Unavailable Mark Dixon MD Unavailable Radha Hung ANALYST MARKET INTELLIGENCE Unavailable Cecile Foote RN Unavailable Whitney Guy [...] Joseph Guzman RN Results Transplantation-Hepatolog y Clinic [facility] [address] [place] [address] Social History Tobacco Use Types [...] Encounter - Joseph Guzman RN - 06/15/2018 10:23 AM DIETITIAN THERAPEUTIC LVM to call about lab results. Labs already ordered by another provider. * Telephone Encounter - Joseph Guzman RN - 06/15/2018 10:21 AM DIETITIAN THERAPEUTIC ----- Message from Mely Jaeger APRN sent at 06/14/2018 11:02 AM DIETITIAN THERAPEUTIC ----- BMP looks stable except for glucose is a little high. Contact pt's sister with results. Plan to repeat in 4 weeks. in this encounter Plan of Treatment Date Type Specialty Care Team Description 06/23/2018 Procedure Pass Oncology 06/23/2018 Procedure Pass Oncology as of this encounter Visit Diagnoses Not on filein this encounter
--- OUTSIDE RECORDS SUMMARY | 2018-07-14 14:58 | XMS REPORT | Encounter Summary ---
Author Author [facility] Address Unknown Phone Unavailable Care Team Providers Care Director Of Flight Operations Name Role Phone Buster Erazo MD Unavailable Michelle Valencia MD Unavailable Jeffy Holbrook MD Unavailable Jass Paris MD Unavailable Lucy Guzmán ASSURANCE SPECIALIST Unavailable Tameka Juarez RN Unavailable Unavailable Ely Dunlap RN Unavailable Unavailable Mely Ford RN Unavailable Lisa Rae RN Unavailable Unavailable Promise Wiseman RN Unavailable Unavailable Mark Dixon MD Unavailable Radha Hung ASSURANCE SPECIALIST Unavailable Cecile Foote RN Unavailable Whitney Guy [...] Details Date Type Department Care Team Description 05/13/2018 Orders Only Center for Isela Guzman RN HCC ( hepatocellular Transplantation-Hepatolog carcinoma) (HCC) (Primary y Clinic Dx); [facility] 1st fl End-stage liver disease [address] (HCC) [place] [address] Social History Tobacco Use Types [...] as of this encounter Miscellaneous Notes * Addendum Note - Isela Guzman RN - 05/13/2018 10:47 AM CDT Addended by: ISELA GUZMAN on: 05/13/2018 10:54 AM Modules accepted: Orders in this encounter Plan of Treatment Date Type Specialty Care Team Description 06/23/2018 Procedure Pass Oncology 06/23/2018 Procedure Pass Oncology Name Priority Associated Diagnoses Order Schedule PROTIME INR (PT) Routine HCC (hepatocellular Expected: 07/10/2018 carcinoma) (HCC) (Approximate), Expires: End-stage liver disease 05/13/2019 (HCC) COMPREHENSIVE METABOLIC PANEL Routine HCC (hepatocellular Expected: 08/2017 carcinoma) (HCC) (Approximate), Expires: End-stage liver disease 07/10/2019 (HCC) CBC AND DIFF Routine HCC (hepatocellular Expected: 07/10/2018 carcinoma) (HCC) (Approximate), Expires: End-stage liver disease 05/13/2019 (HCC) ALPHA FETO PROTEIN (AFP) Routine HCC (hepatocellular Expected: 2017 carcinoma) (HCC) (Approximate), Expires: End-stage liver disease 05/13/2019 (HCC) as of this encounter Visit Diagnoses Diagnosis HCC (hepatocellular carcinoma) (HCC) - Primary Malignant neoplasm of liver, primary End-stage liver disease (HCC) Other sequelae of chronic liver disease
--- OUTSIDE RECORDS SUMMARY | 2018-07-14 14:58 | XMS REPORT | Encounter Summary ---
Author Author [facility] Organization [facility] Address Unknown Phone Unavailable Care Team Providers Care Veneer Taping Machine Offbearer Name Role Phone Buster Erazo MD Unavailable Michelle Valencia MD Unavailable Jeffy Holbrook MD Unavailable Jass Paris MD Unavailable Lucy Guzmán GENERAL HARDWARE SALESPERSON Unavailable Tameka Juarez RN Unavailable Unavailable Ely Dunlap RN Unavailable Unavailable Mely Ford RN Unavailable Lisa Rae RN Unavailable Unavailable Promise Wiseman RN Unavailable Unavailable Mark Dixon MD Unavailable Radha Hung GENERAL HARDWARE SALESPERSON Unavailable Cecile Foote RN Unavailable Whitney Guy [...] PCP Reason for Visit * Reason Comments Appointment Request Encounter Details Date Type Department Care Team Description 05/18/2018 Telephone [facility] Mariaelena Robertson MD Appointment Request [facility] [place] [address] [facility] [place] [address] [place] [address] [phone] Social History Tobacco Use Types Packs/Day Years [...] encounter Miscellaneous Notes * Telephone Encounter - Chio eKlley MA - 05/18/2018 8:42 AM CDT Incoming call from sister to cancel appointments patient is wanting to transfer care to [facility] closer to home. in this encounter Plan of Treatment Date Type Specialty Care Team Description 06/23/2018 Procedure Pass Oncology 06/23/2018 Procedure Pass Oncology as of this encounter Visit Diagnoses Not on filein this encounter
--- OUTSIDE RECORDS SUMMARY | 2018-07-14 14:58 | XMS REPORT | Encounter Summary ---
Author Author [facility] Organization [facility] Address Unknown Phone Unavailable Care Team Providers Care Internal Grinder Set Up Operator Name Role Phone Buster Erazo MD Unavailable Michelle Valencia MD Unavailable Jeffy Holbrook MD Unavailable Jass Paris MD Unavailable Lucy Guzmán LIP AND GATE BUILDER Unavailable Tameka Juarez RN Unavailable Unavailable Ely Dunlap RN Unavailable Unavailable Mely Ford RN Unavailable Lisa Rae RN Unavailable Unavailable Promise Wiseman RN Unavailable Unavailable Mark Dixon MD Unavailable Radha Hung LIP AND GATE BUILDER Unavailable Cecile Foote RN Unavailable Whitney Guy [...] PCP Reason for Visit * Reason Comments Heme/Onc Care opdivo * Treatment (Routine) Status Reason Specialty Diagnoses / Referred By Referred To Procedures Contact Contact Authorized Diagnoses Mariaelena Robertson, Cc - Ww Cl Trmt Rm [facility] (hepatocellular [address] [facility] [address] carcinoma) (HCC) [address] [place] [address] [place], [place] neoplasm of [facility] [address] right lung (HCC) Phone: Phone: Secondary [phone] malignant Fax: neoplasm of left [phone] lung (HCC) P rocedures nivolumab (OPDIVO) Encounter Details Date Type Department Care Team Description 05/03/2018 [facility] Nazia Huang APRN-MAY Encounter Cancer Center - [facility] [address] Treatment [address] [place] [address] [address] [place] [address] A [phone] Mariaelena Yi MD [address] [place] [address] [phone] Social History Tobacco Use Types Packs/Day Years [...] days. insulin detemir(+) Inject under the skin. (LEVEMIR) [...] mg by mouth at tablet bedtime daily. furosemide (LASIX) 40 mg Take 20 mg by mouth 05/11/2018 tablet daily. as of this encounter Progress Notes * Yobany De La Cruz RN - 05/03/2018 12:46 PM CDT CHEMO NOTE Verified chemo consent signed and in chart. Verified initiate chemo order in O2 Blood return positive via: Port (Single and Accessed) BSA and dose double checked (agree with orders as written) with: yes see MAR Labs/applicable tests checked: CBC and Comprehensive Metabolic Panel (CMP) Chemo regime: Drug/cycle/daynivolumab (OPDIVO) 240 mg in sodium chloride 0.9% ( NS) 124 mL IVPB Rate verified and armband double checkwith second RN: yes Patient education offered and stated understanding. Denies questions at this time. Patient here for opdivo. Patient reports he is doing well and reports all questions and concerns were addressed at prior appointment with GERBER Burton. PAC accessed in lab; flushed well with positive blood return noted. Copy of labs reviewed and given to patient. Received ok to treat with elevated T Bili. Patient tolerated opdivo without issue. PAC de-accessed per protocol. Patient left ambulatory with family and belongings, in good condition, all questions and concerns addressed. in this encounter Miscellaneous Notes * Addendum Note - Candelaria Estrada - 05/06/2018 7:40 PM CDT Encounter addended by: Candelaria Estrada on: 05/06/2018 7:40 PM
Actions taken: Charge Capture section accepted in this encounter Plan of Treatment Date Type Specialty Care Team Description 06/23/2018 Procedure Pass Oncology 06/23/2018 Procedure Pass Oncology as of this encounter Visit Diagnoses Diagnosis HCC (hepatocellular carcinoma) (HCC) Malignant neoplasm of liver, primary Administered Medications Medication Order MAR Action Action Date Dose Rate Site heparin lock flush PF syringe 500 Units Given 05/03/2018 500 Units 500 Units, Intravenous, ONCE, 1 dose, 12:38 CDT 05/03/18 at 1130, NOTE: This is a HIGH ALERT Medication. nivolumab (OPDIVO) 240 mg in sodium Given - New 05/03/2018 240 mg 248 mL/hr chloride 0.9% (NS) 124 mL IVPB Bag 11:59 CDT 240 mg, Intravenous, 124 mL, Administer over 30 Minutes, ONCE, 1 dose, 05/03/18 at 1200, NOTE: This is a HIGH ALERT Medication. in this encounter
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
--- OUTSIDE RECORDS SUMMARY | 2018-07-14 14:58 | XMS REPORT | Encounter Summary ---
Author Author [facility] Organization [facility] Address Unknown Phone Unavailable Care Team Providers Care Supervisor Machining Name Role Phone Buster Erazo MD Unavailable Michelle Valencia MD Unavailable Jeffy Holbrook MD Unavailable Jass Paris MD Unavailable Lucy Guzmán EMS EDUCATOR Unavailable Tameka Juarez RN Unavailable Unavailable Ely Dunlap RN Unavailable Unavailable Mely Ford RN Unavailable Lisa Rae RN Unavailable Unavailable Promise Wiseman RN Unavailable Unavailable Mark Dixon MD Unavailable Radha Hung EMS EDUCATOR Unavailable Cecile Foote RN Unavailable Whitney Guy [...] Department Care Team Description 05/18/2018 Telephone [facility] Mariaelena Robertson MD Cancer Follow up Cancer Center - WW Exam [address] [facility] Cancer Center [place] [address] [facility] [place] [address] [place] [address] [phone] Social History Tobacco Use Types Packs/Day Years [...] Telephone Encounter - Neva Ann RN - 05/18/2018 11:39 AM CDT Patient sister called to cancel appt today. She reports they have established locally and plan to get his next Nivolumab treatment there within the next 1-2 weeks. Advise sister to call us with exact tx date so we can be aware. Patient still wants to follow with us for scans and already scheduled in June. in this encounter Plan of Treatment Date Type Specialty Care Team Description 06/23/2018 Procedure Pass Oncology 06/23/2018 Procedure Pass Oncology as of this encounter Visit Diagnoses Not on filein this encounter
--- OUTSIDE RECORDS SUMMARY | 2018-07-14 14:58 | XMS REPORT | Encounter Summary ---
Author Author [facility] Organization [facility] Address Unknown Phone Unavailable Care Team Providers Care Switch House Operator Name Role Phone Buster Erazo MD Unavailable Michelle Valencia MD Unavailable Jeffy Holbrook MD Unavailable Jass Paris MD Unavailable Lucy Guzmán SHORE MAN Unavailable Tameka Juarez RN Unavailable Unavailable Ely Dunlap RN Unavailable Unavailable Mely Ford RN Unavailable Lisa Rae RN Unavailable Unavailable Promise Wiseman RN Unavailable Unavailable Mark Dixon MD Unavailable Radha Hung SHORE MAN Unavailable Cecile Foote RN Unavailable Whitney Guy [...] PCP Reason for Visit * Reason Comments Worsening Symptoms Encounter Details Date Type Department Care Team Description 05/10/2018 Telephone Center for Mely Jaeger APRN Worsening Symptoms Transplantation-Hepatolog [address] [facility] y Clinic [place] [address] [facility] 1st [place] [address] [address] [facility] [phone] [place] [address] Social History Tobacco Use Types [...] Telephone Encounter - Joseph Guzman RN - 05/11/2018 2:17 PM CDT Increase lasix to 40gm PO QD Repeat labs in 1 week and then in 2 weeks. May 18 and June 01. Will be seen by Dr Robertson.next week. * Telephone Encounter - Joseph Guzman RN - 05/11/2018 9:16 AM CDT Patient went to cancer yesterday. His weight went from 218#--232# in one week. Cancer wondered if TIPS is no longer patent. Next infusion is on 05/18. Patient eats what he wants to. Low Sodium Diet. Sister Love does not know if patient is taking lasix. Sister Kacy Acuna arranges medication. I called her at [phone] [facility] to ask about lasix. * Telephone Encounter - Nela Rahman - 05/10/2018 3:47 PM CDT Pts sister [facility] requesting to speak with NC regarding pts current condition and symptoms. in this encounter Plan of Treatment Date Type Specialty Care Team Description 06/23/2018 Procedure Pass Oncology 06/23/2018 Procedure Pass Oncology Name Priority Associated Diagnoses Order Schedule BASIC METABOLIC PANEL Routine HCC (hepatocellular Expected: 05/18/2018 carcinoma) (HCC) (Approximate), Expires: End-stage liver disease 05/11/2019 (HCC) BASIC METABOLIC PANEL Routine HCC (hepatocellular Expected: 06/01/2018 carcinoma) (HCC) (Approximate), Expires: End-stage liver disease 05/11/2019 (HCC) as of this encounter Visit Diagnoses Diagnosis HCC (hepatocellular carcinoma) (HCC) - Primary Malignant neoplasm of liver, primary End-stage liver disease (HCC) Other sequelae of chronic liver disease
--- OUTSIDE RECORDS SUMMARY | 2018-07-14 14:58 | XMS REPORT | Encounter Summary ---
Author Author [facility] Organization [facility] Address Unknown Phone Unavailable Care Team Providers Care Sleeve Presser Operator Name Role Phone Buster Erazo MD Unavailable Michelle Valencia MD Unavailable Jeffy Holbrook MD Unavailable Jass Paris MD Unavailable Lucy Guzmán CONTINUOUS PROCESS MACHINE OPERATOR Unavailable Tameka Juarez RN Unavailable Unavailable Ely Dunlap RN Unavailable Unavailable Mely Ford RN Unavailable Lisa Rae RN Unavailable Unavailable Prmoise Wiseman RN Unavailable Unavailable Mark Dixon MD Unavailable Radha Hung CONTINUOUS PROCESS MACHINE OPERATOR Unavailable Cecile Foote RN Unavailable Whitney [...] PCP Reason for Visit * Reason Comments Other return call Encounter Details Date Type Department Care Team Description 05/11/2018 Telephone Center for Mely Jaeger APRN Other (return call) Transplantation-Hepatolog [address] [facility] y Clinic [place] [address] [facility] 1st [place] [address] [address] [facility] [phone] [place] [address] Social History Tobacco Use Types [...] Encounter - Joseph Guzman RN - 05/11/2018 12:06 PM CDT Patient is taking 20mg of lasix/day per sister Kacy. * Telephone Encounter - Taat Huitron - 05/11/2018 11:56 AM CDT Please return sister (Kacy)'s call. in this encounter Plan of Treatment Date Type Specialty Care Team Description 06/23/2018 Procedure Pass Oncology 06/23/2018 Procedure Pass Oncology as of this encounter Visit Diagnoses Not on filein this encounter
--- OUTSIDE RECORDS SUMMARY | 2018-07-14 14:58 | XMS REPORT | Encounter Summary ---
Author Author [facility] Organization [facility] Address Unknown Phone Unavailable Care Team Providers Care Water Quality Technician Name Role Phone Buster Erazo MD Unavailable Michelle Valencia MD Unavailable Jeffy Holbrook MD Unavailable Jass Paris MD Unavailable Lucy Guzmán DRAFTER DIRECTIONAL SURVEY Unavailable Tameka Juarez RN Unavailable Unavailable Ely Dunlap RN Unavailable Unavailable Mely Ford RN Unavailable Lisa Rae RN Unavailable Unavailable Promise Wiseman RN Unavailable Unavailable Mark Dixon MD Unavailable Radha Hung DRAFTER DIRECTIONAL SURVEY Unavailable Cecile Foote RN Unavailable Whitney Guy [...] Reason for Visit * Reason Comments Other Encounter Details Date Type Department Care Team Description 05/19/2018 Telephone Center for Mely Jaeger APRN Other Transplantation-Hepatolog [address] [facility] y Clinic [place] [address] [facility] 1st [place] [address] [address] [facility] [phone] [place] [address] Social History Tobacco Use Types [...] Telephone Encounter - Joseph Guzman RN - 06/01/2018 8:48 AM CDT Called Love to see if patient got labs. He did not. Faxed lab order to home at [phone] * Telephone Encounter - Aixa Dugan RN - 05/24/2018 1:29 PM CDT Spoke with pt sister. She reports she saw him today and he did not look like he was retaining extra fluid. Instructed her to call if she has any questions or pt develops swelling again. Love verbalized understanding. * Telephone Encounter - Joseph Guzman RN - 05/20/2018 12:58 PM CDT Updated Love that Mely Jaeger APRN has contacted Dr Griffiths's nurse with her recommendations. * Telephone Encounter - Joseph Guzman RN - 05/20/2018 8:52 AM CDT Call from Love patient's sister. Wants to get cancer treatment transferred from [place] to [facility]. Infusion missed due to patient not feeling well. Patient was not taking water pills. Had gained weight up to 233# after restarting pills he went back to 220#. Recent low weight was 207# after not eating while on chemotherapy. Dr Cachorro Griffihts in [place] will not treat patient with immunotherapy unless TIPS is rechecked. Last week Mely Jaeger APRN did not want to reorder scan to recheck TIPS as it was imaged in the last 30 days and it was fine. * Telephone Encounter - Nela Rahman - 05/19/2018 2:14 PM CDT Pts sister LVM requesting to speak with NC. Please return call to advise. in this encounter Plan of Treatment Date Type Specialty Care Team Description 06/23/2018 Procedure Pass Oncology 06/23/2018 Procedure Pass Oncology as of this encounter Visit Diagnoses Not on filein this encounter
--- OUTSIDE RECORDS SUMMARY | 2018-07-14 14:58 | XMS REPORT | Encounter Summary ---
Author Author [facility] Organization [facility] Address Unknown Phone Unavailable Care Team Providers Care Site Interpreter Name Role Phone Buster Erazo MD Unavailable Michelle Valencia MD Unavailable Jeffy Holbrook MD Unavailable Jass Paris MD Unavailable Lucy Guzmán HOME HEALTH SPEECH THERAPIST Unavailable Tameka Juarez RN Unavailable Unavailable Ely Dunlap RN Unavailable Unavailable Mely Ford RN Unavailable Lisa Rae RN Unavailable Unavailable Promise Wiseman RN Unavailable Unavailable Mark Dixon MD Unavailable Radha Hung HOME HEALTH SPEECH THERAPIST Unavailable Cecile Foote RN Unavailable Whitney Guy [...] Date Type Department Care Team Description 05/03/2018 Pharmacy Visit Call Center Pharm[facility] [address] [place] [id number] Social History Tobacco Use Types Packs/Day Years [...]
--- OUTSIDE RECORDS SUMMARY | 2018-07-14 14:58 | XMS REPORT | Encounter Summary ---
Author Author [facility] Organization [facility] Address Unknown Phone Unavailable Care Team Providers Care Photoengraving Sketch Maker Name Role Phone Buster Erazo MD Unavailable Michelle Valencia MD Unavailable Jeffy Holbrook MD Unavailable Jass Paris MD Unavailable Lucy Guzmán PRINTER SLOTTER OPERATOR Unavailable Tameka Juarez RN Unavailable Unavailable Ely Dunlap RN Unavailable Unavailable Mely Ford RN Unavailable Lisa Rae RN Unavailable Unavailable Promise Wiseman RN Unavailable Unavailable Mark Dixon MD Unavailable Radha Hung PRINTER SLOTTER OPERATOR Unavailable Cecile Foote RN Unavailable Whitney [...] Date Type Department Care Team Description 05/03/2018 Orders Only [facility], Nazia, PRINTER SLOTTER OPERATOR-CUT OFF SAW OPERATOR Cancer Center - WW Exam [address] [facility] [place] [address] [place] [address] [place] [address] [phone] Social History Tobacco Use Types Packs/Day Years [...]
--- OUTSIDE RECORDS SUMMARY | 2018-07-14 14:59 | XMS REPORT | Encounter Summary ---
Author Author [facility] Organization [facility] Address Unknown Phone Unavailable Care Team Providers Care Email Marketing Manager Name Role Phone Buster Erazo MD Unavailable Michelle Valencia MD Unavailable Jeffy Holbrook MD Unavailable Jass Paris MD Unavailable Lucy Guzmán POSITION DESCRIPTION MANAGER Unavailable Tameka Juarez RN Unavailable Unavailable Ely Dunlap RN Unavailable Unavailable Mely [place] RN Unavailable Lisa Rae RN Unavailable Unavailable Promise Wiseman RN Unavailable Unavailable Mark Dixon MD Unavailable Radha Hung POSITION DESCRIPTION MANAGER Unavailable Cecile Foote RN Unavailable Whitney Guy [...] for Visit * Reason Comments Heme/Onc Care labs Encounter Details Date Type Department Care Team Description 05/03/2018 Nurse Only [facility] Nazia Huang APRN-NP HCC (hepatocellular [facility] Ex[facility] [address] carcinoma) (HCC) ( [facility] [place] [address] Dx) [address] [place] [phone] Social History Tobacco Use Types Packs/Day Years [...] Procedure Name Priority Date/Time Associated Diagnosis Comments CBC AND DIFF Routine 05/03/2018 HCC (hepatocellular Results for this 9:46 AM CDT carcinoma) (HCC) procedure are in the results section. COMPREHENSIVE METABOLIC Routine 05/03/2018 HCC (hepatocellular Results for this PANEL 9:46 AM CDT carcinoma) (HCC) procedure are in the results section. in this encounter Results * COMPREHENSIVE METABOLIC PANEL (05/03/2018 9:46 AM) Sodium 135 (L) 137 - 147 MMOL/L [facility] Potassium 3.8 3.5 - 5.1 MMOL/L [facility] Chloride 108 98 - 110 MMOL/L [facility] Glucose 156 (H) 70 - 100 MG/DL [facility] Blood Urea Nitrogen 11 7 - 25 MG/DL [facility] Creatinine 0.51 0.4 - 1.24 MG/DL [facility] Calcium 7.9 (L) 8.5 - 10.6 MG/DL [facility] Total Protein 5.6 (L) 6.0 - 8.0 G/DL [facility] Total Bilirubin 2.3 (H) 0.3 - 1.2 MG/DL [facility] Albumin 2.1 (L) 3.5 - 5.0 G/DL [facility] Alk Phosphatase 133 (H) 25 - 110 U/L [facility] AST (SGOT) 43 (H) 7 - 40 U/L [facility] CO2 26 21 - 30 MMOL/L [facility] ALT (SGPT) 26 7 - 56 U/L [facility] Anion Gap 1 (L) 3 - 12 [facility] eGFR [...] Organization Address City/State/Zipcode Phone Number [facility] [address] [place] [address] * CBC AND DIFF (05/03/2018 9:46 AM) White Blood Cells 3.0 (L) 4.5 - 11.0 K/UL [facility] RBC 3.53 (L) 4.4 - 5.5 M/UL [facility] Hemoglobin 10.3 (L) 13.5 - 16.5 GM/DL [facility] Hematocrit 30.5 (L) 40 - 50 % [facility] MCV 86.3 80 - 100 FL [facility] MCH 29.1 26 - 34 PG [facility] MCHC 33.7 32.0 - 36.0 G/DL [facility] RDW 21.1 (H) 11 - 15 % [facility] Platelet Count 37 (L) 150 - 400 K/UL [facility] MPV 8.9 7 - 11 FL [facility] Neutrophils 63 41 - 77 % [facility] Lymphocytes 20 (L) 24 - 44 % [facility] Monocytes 12 4 - 12 % [facility] Eosinophils 4 0 - 5 % [facility] Basophils 1 0 - 2 % [facility] Absolute Neutrophil Count 1.90 1.8 - 7.0 K/UL [facility] Absolute Lymph Count 0.60 (L) 1.0 - 4.8 K/UL [facility] Absolute Monocyte Count 0.40 0 - 0.80 K/UL [facility] Absolute Eosinophil Count 0.10 0 - 0.45 K/UL [facility] Absolute Basophil Count 0.00 0 - 0.20 K/UL [facility] Specimen Blood Performing Organization Address City/State/Zipcode Phone Number [facility] [address] [phone] in this encounter Visit Diagnoses Diagnosis HCC (hepatocellular carcinoma) (HCC) - Primary Malignant neoplasm of liver, primary
--- OUTSIDE RECORDS SUMMARY | 2018-07-14 14:59 | XMS REPORT | Encounter Summary ---
Author Author [facility] Organization [facility] Address Unknown Phone Unavailable Care Team Providers Care Technical Sales Consultant Name Role Phone Buster Erazo MD Unavailable Michelle Valencia MD Unavailable Jeffy Holbrook MD Unavailable Jass Paris MD Unavailable Lucy Guzmán LEVEL VIAL MARKER Unavailable Tameka Juarez RN Unavailable Unavailable Ely Dunlap RN Unavailable Unavailable Mely [place] RN Unavailable Lisa Rae RN Unavailable Unavailable Promise Wiseman RN Unavailable Unavailable Mark Dixon MD Unavailable Radha Hung LEVEL VIAL MARKER Unavailable Cecile Foote RN Unavailable Whitney Guy [...] Contact No Auth Needed Radiology Diagnoses Mariaelena Robertson Bh2 Ir HCC [facility] 2nd (hepatocellular [address] carcinoma) (HCC) [address] [facility] [address] [place] [address] IR CENTRAL [address] Phone: VENOUS CATHETER CHG [place] [phone] CENTRAL VENOUS Fax: ACCESS DEV [phone] PLACEMENT CHG US VASC ACCESS SITS VSL PATENCY NDL ENTRY WA INSJ TUNNELED CTR VAD W/SUBQ PORT AGE 5 YR/> * Radiology Services (Routine) Status Reason Specialty Diagnoses / Referred By Referred To Procedures Contact Contact No Auth Needed Radiology Diagnoses Mariaelena Robertson Bh2 Ir HCC [facility] 2nd (hepatocellular [address] carcinoma) (HCC) [address] [facility] [address] [place] [address] IR CENTRAL [address] Phone: VENOUS CATHETER CHG [place] [phone] CENTRAL VENOUS Fax: ACCESS DEV [phone] PLACEMENT CHG US VASC ACCESS SITS VSL PATENCY NDL ENTRY WA INSJ TUNNELED CTR VAD W/SUBQ PORT AGE 5 YR/> Reason for Visit * Radiology Services (Routine) Status Reason Specialty Diagnoses / Referred By Referred To Procedures Contact Contact No Auth Needed Radiology Diagnoses Mariaelnea Robertson Bh2 Ir HCC [facility] 2nd (hepatocellular [address] carcinoma) (HCC) [address] [facility] [address] [place] [address] IR CENTRAL [address] Phone: VENOUS CATHETER CHG [place] [phone] CENTRAL VENOUS Fax: ACCESS DEV [phone] PLACEMENT CHG US VASC ACCESS SITS VSL PATENCY NDL ENTRY WA INSJ TUNNELED CTR VAD W/SUBQ PORT AGE 5 YR/> Encounter Details Date Type Department Care Team Description 04/22/[address] [facility] Mariaelena Robertson MD HCC ( hepatocellular Encounter Hospital Radiology [address] carcinoma) (HCC) [address] [place] [address] [place] [address] [place] [id number] A Macy ordoñez RN S Kate nuno RT(R)(),LRT C Jeffy schultz MD [address] [place] [address] [place] [address] Social History Tobacco Use Types Packs/Day Years Used Date Current Every Day Smoker Cigarettes 0.25 45 Smokeless Tobacco: Never Used Comments: trying to quit Alcohol Use Drinks/Week oz/Week Comments No quit '08; moderate alcohol intake prior (up to 8 drinks/week) Sex Assigned at Date Recorded Not on file as of this encounter Last Filed Vital Signs Vital Sign Reading Time Taken Blood Pressure 107/71 04/22/2018 11:30 AM CDT Pulse 82 04/22/2018 11:30 AM CDT Temperature 36.8 C (98.2 F) 04/22/2018 11:06 AM CDT Respiratory Rate - - Oxygen Saturation 97% 04/22/2018 11:30 AM CDT Inhaled Oxygen - - Concentration Weight 92.5 kg (204 lb) 04/22/2018 8:47 AM CDT Height 182.9 cm (6') 04/22/2018 8:47 AM CDT Body Mass Index 27.67 04/22/2018 8:47 AM CDT in this encounter Functional Status [...] impairment: No 02/11/2018 as of this encounter Discharge Instructions * Patient Instructions - Saurav Savage RN - 04/22/2018 8:54 AM CDT Interventional Radiology IMPLANTED PORT PLACEMENT An implanted port is a small intravenous access device placed completely under the skin through which you may receive chemotherapy, other medications or blood products. It may also be used to draw blood. The port consists of a small reservoir that is implanted usually under the skin of your chest. This reservoir is connected to a catheter that is placed in a tunnel under the skin and ends in a large vein near the center of your chest. You may also hear it referred to as a chest port, power port or portacath. A power port is a port that can be used for contrast injections for CT scans. A vortex portmay beused for photopheresis. In some cases, the port may be placed in the upper arm. POST-PROCEDURE ACTIVITY: A responsible adult must drive you home. After receiving sedation or anesthesia, you should not drive, operate heavy machinery or do anything that requires concentration for at least 24 hours after receiving sedation. It is recommended that a responsible adult be with you until morning. Do not lift more than 5 lbs. and avoid any strenuous activity affecting the upper body such as pushing, pulling or straining for 10 days. If the port was placed in your arm, do not allow blood pressures to be taken in that arm. POST-PROCEDURE SITE CARE: You will have a bandage over the incision on your chest and another small bandage at your neck. Keep the bandages dry. You may remove the small bandage at your neck in 24 hours and leave open to air. Remove the bandage over the incision on your chest after 48 hours. After 24 hours, you may shower. Keep the site covered and avoid direct water contact to the incision. After 48 hours, remove dressing to shower. Use antibacterial soap, gently wash the site then pat dry after. There are no stitches to be removed. Steri-strips (strips of tape) may be used. If present the strips will begin to fall off in 7-10 days. If they remain after 2 weeks, gently remove them. Do not submerge the area underwater for 1 week or until fully healed (no swimming/hot tub, etc.) Be sure your hands are clean when touching near the site. Do not use ointments, creams or powders on the incision. If you are admitted to the hospital, you will be taught to wash with Chlorhexidine (CHG) soap. This soap reduces germs on your skin and lowers your risk of infection while in the hospital. It will keep harmful germs off your skin for 24 hours, so it is important to use this soap daily. The nursing staff will teach you how to shower with this soap. If you are unable to shower, they will assist you with using it during a bed bath. It is not necessary to continue using this soap at home. This soap can cause dry skin. We recommend using lotion that is compatible with CHG after each bath or shower. The nursing staff can provide you with our recommended lotion in the hospital. DIET/MEDICATIONS: You may resume your previous diet after the procedure. If you receive sedation or anesthesia, avoid any foods or beverages containing alcohol for at least 24 hours after the procedure. Please see the Medication Reconciliation sheet for instructions regarding resuming your home medications. CALL THE DOCTOR IF: Bright red blood has soaked the bandage. You have pain not relieved by medication. Some soreness at the site is to be expected. You have Chills, body aches, fever greater than 101?F Redness, swelling or warmth at or around the incision Drainage or pus coming from the incision Increased tenderness around the incision You have opening of the edges of the incision. You have swelling of the face, neck, chest or arm on the side where the port was placed. For severe problems such as excessive bleeding, chest pain or shortness of breath, please call 911. For any of the above symptoms or for problems or concerns related to the procedure, call [phone] for Thursday-Thursday 7-5. After-hours and weekends, please call [phone] and ask for the Interventional Telephone Sales Agent on-call. What is Procedural Sedation? Procedural sedation is medicine given to help calm and relax you in order to complete a test/procedure that may take a period of time, or otherwise be painful. These medications can help reduce anxiety and pain related to the procedure. Do I need Procedural Sedation? You will be screened to make sure sedation is appropriate based on your medical history and the procedure needing to be completed. Your physician will choose sedation medications based on your age, overall health status, and duration and/ or invasiveness of the procedure. Sedation medications may be given various ways By mouth (drink liquid or take a pill) Intranasal (a medication sprayed/injected to the nostril) Intramuscular (an injection into the muscle) IV (medication injected through an IV in your vein) How is Procedural Sedation different from General Anesthesia? Sedation is a continuum rather than clearly defined levels- meaning you can progress from one level of sedation to both a inserting machine operator or deeper level during the procedure. The goal of Procedural Sedation is that your pain is controlled, but you are able to breathe and protect your own airway. You may have limited memory of the procedure. However, you should be arousable throughout the procedure and able to talk with your nurse. During General Anesthesia you are completely unconscious and may require assistance with your breathing and/or blood pressure during the procedure. Anesthesia providers will be involved in your care for this depth of sedation. Important information for the day of your Procedure Prior to your procedure: ? You should have no solid food for at least 8 hours. ? You can have clear liquids up until 2 hours before your procedure arrival time. (example: tea, apple juice, water, coffee- no milk or creamers) After your sedation, you will be monitored to ensure it is safe for you to go home. You must have a responsible adult with you upon your discharge from the procedure to escort you home. A taxi, Uber, or bus can be your way home if you choose, but the skip load driver cannot be your responsible republican. You may not drive yourself. in this encounter Medications at Time of Discharge [...] 20 mg by mouth 05/11/2018 tablet daily. SORAfenib(+) (NEXAVAR) Take 2 tablets by mouth 120 tablet 2 201705/03/2018 200 mg tablet twice daily. as of this encounter Progress Notes * Macy Palomo RN - 04/22/2018 10:34 AM CDT Sedation physician present in room. Recent vitals and patient condition reviewed between sedating physician and nurse. Reassessment completed. Determination made to proceed with planned sedation. in this encounter H&P Notes * Kelley Troncoso, MSN,LEVEL VIAL MARKER - 04/22/2018 8:35 AM CDT Formatting of this note may be different from the original. Pre Procedure History and Physical/Sedation Plan Procedure Date: 04/22/2018 Planned Procedure(s): Single lumen port placement. Indication for exam: HCC. Chief Complaint: HCC. Previous Anesthetic/Sedation History: Reports intolerance to versed--will use pre-procedural ativan. Denies other adverse events. Allergies: Versed [midazolam] Medications: Scheduled Meds:Continuous Infusions: PRN and Respiratory Meds: Vital Signs: Last Filed Vital Signs: 24 Hour Range BP: ()/() ABP: ()/() Sedation/Medication Plan: Fentanyl and and pre-procedural ativan. Personal history of sedation complications: Denies adverse event. Family history of sedation complications: Denies adverse event. Medications for Reversal: Naloxone and Flumazenil Discussion/Reviews: Physician has discussed risks and alternatives of this type of sedation and above planned procedures with patient NPO Status: Acceptable Airway: airway assessment performed Mallampati II (soft palate, uvula, fauces visible) Head and Neck: no abnormalities noted Mouth: no abnormalities noted Anesthesia Classification: ASA III (A patient with a severe systemic disease that limits activity, but is not incapacitating) Status: N/A Lab/Radiology/Other Diagnostic Tests Labs: Relevant labs reviewed I have examined the patient, and there are no significant changes in their condition, from the previous H&P performed on 04/14/18. Mary Troncoso, MSN,LEVEL VIAL MARKER Pager [phone] in this encounter Miscellaneous Notes * Procedures (Immed Post or Bedside) - Yosvany Bacon MD - 04/22/2018 10:58 AM CDT Immediate Post Procedure Note Date: 04/22/2018 Attending Physician: Dr. Holbrook Performing Provider: Yosvany Bacon MD Consent: Consent obtained from patient. Time out performed: Consent obtained, correct patient verified, correct procedure verified, correct site verified, patient marked as necessary. Pre/Post Procedure Diagnosis: HCC Indications: HCC, chemo access Anesthesia: Local 15 mL 2% lidocaine with epinephrine with IV sedation fentanyl Procedure(s): Right IJ chest port placement Findings: Successful placement of right IJ chest port with tip in right atrium Estimated Blood Loss: Minimal Specimen(s) Removed/Disposition: None Complications: None Patient Tolerated Procedure: Well Post-Procedure Condition: stable Yosvany Bacon MD Pager [phone] in this encounter Plan of Treatment Date Type Specialty Care Team Description 06/23/2018 Procedure Pass Oncology 06/23/2018 Procedure Pass Oncology as of this encounter Procedures Procedure Name Priority Date/Time Associated Diagnosis Comments TSH WITH FREE T4 REFLEX Add on [...] CDT procedure are in the results section. in this encounter Results * TSH WITH FREE T4 REFLEX (04/22/2018 11:29 AM) TSH 4.500 0.35 - 5.00 MCU/ML [facility] Performing Organization Address City/State/Zipcode Phone Number [facility] [address] [place] [address] * COMPREHENSIVE METABOLIC PANEL (04/22/2018 11:29 AM) Sodium 136 (L) 137 - 147 MMOL/L [facility] Potassium 3.5 3.5 - 5.1 MMOL/L [facility] Chloride 106 98 - 110 MMOL/L [facility] Glucose 151 (H) 70 - 100 MG/DL [facility] Blood Urea Nitrogen 11 7 - 25 MG/DL [facility] Creatinine 0.55 0.4 - 1.24 MG/DL [facility] Calcium 8.2 (L) 8.5 - 10.6 MG/DL [facility] Total Protein 6.0 6.0 - 8.0 G/DL [facility] Total Bilirubin 3.5 (H) 0.3 - 1.2 MG/DL [facility] Albumin 2.2 (L) 3.5 - 5.0 G/DL [facility] Alk Phosphatase 187 (H) 25 - 110 U/L [facility] AST (SGOT) 48 (H) 7 - 40 U/L [facility] CO2 27 21 - 30 MMOL/L [facility] ALT (SGPT) 25 7 - 56 U/L [facility] Anion Gap 3 3 - 12 [facility] eGFR Non >60 >60 mL/min [facility] Comment: The eGFR is not validated for use in drug dosing adjustments.Continue to use estimated creatinine clearance per dosing reference text.Please contact the Clinical Pharmacist for questions. eGFR >60 >60 mL/min [facility] Comment: The eGFR is not validated for use in drug dosing adjustments.Continue to use estimated creatinine clearance per dosing reference text.Please contact the Clinical Pharmacist for questions. Specimen Blood Performing Organization Address City/[facility]/Zipcode Phone Number [facility] [address] [place] [address] * PROTIME INR (PT) (04/22/2018 11:29 AM) INR 1.2 0.8 - 1.2 [facility] Specimen Blood Performing Organization Address City/[facility]/Zipcode Phone Number [facility] [address] [place] [address] * CBC AND DIFF (04/22/2018 11:29 AM) White Blood Cells 3.6 (L) 4.5 - 11.0 K/UL [facility] RBC 3.94 (L) 4.4 - 5.5 M/UL [facility] Hemoglobin 11.0 (L) 13.5 - 16.5 GM/DL [facility] Hematocrit 33.0 (L) 40 - 50 % [facility] MCV 83.7 80 - 100 FL [facility] MCH 28.0 26 - 34 PG [facility] MCHC 33.4 32.0 - 36.0 G/DL [facility] RDW 21.3 (H) 11 - 15 % [facility] Platelet Count 42 (L) 150 - 400 K/UL [facility] MPV 9.9 7 - 11 FL [facility] Neutrophils 64 41 - 77 % [facility] Lymphocytes 20 (L) 24 - 44 % [facility] Monocytes 10 4 - 12 % [facility] Eosinophils 5 0 - 5 % [facility] Basophils 1 0 - 2 % [facility] Absolute Neutrophil Count 2.30 1.8 - 7.0 K/UL [facility] Absolute Lymph Count 0.70 (L) 1.0 - 4.8 K/UL [facility] Absolute Monocyte Count 0.40 0 - 0.80 K/UL [facility] Absolute Eosinophil Count 0.20 0 - 0.45 K/UL [facility] Absolute Basophil Count 0.00 0 - 0.20 K/UL [facility] Specimen Blood Performing Organization Address City/State/Zipcode Phone Number [facility] [address] [place] [address] * IR CENTRAL VENOUS CATHETER (04/22/2018 10:34 [...] documentation.The needle was exchanged for a 5 Trinidadian coaxial dilator. The inner dilator and the wire were removed and an 0.035 Amplatz superstiff wire was advanced into the IVC. A 8 Trinidadian peel-away sheath was placed. Attention was turned [...] The needle was exchanged for a 5 Trinidadian coaxial dilator. The inner dilator and the wire were removed and an 0.035 Amplatz superstiff wire was advanced into the IVC. A 8 Trinidadian peel-away sheath was placed. Attention was turned [...] IMPRESSION Successful image-guided placement of port catheter. I, Jeffy Holbrook M.D, the attending radiologist, [...] Yosvany Bacon M.D. on 04/23/2018 9:45 AM. Performing Organization Address City/[facility]/Zipcout Phone Number RAD RESULTS * POC GLUCOSE (04/22/2018 9:23 AM) Glucose, POC 151 (H) 70 - 100 MG/DL [facility] Performing Organization Address City/[facility] Number [facility] [address] [place] [address] in this encounter Visit Diagnoses Diagnosis HCC (hepatocellular carcinoma) (HCC) Malignant neoplasm of liver, primary Cirrhosis of liver without ascites, unspecified hepatic cirrhosis type (HCC) Admitting Diagnoses Diagnosis HCC (hepatocellular carcinoma) (HCC) Malignant neoplasm of liver, primary Administered Medications Medication Order MAR Action Action Date Dose Rate Site fentaNYL citrate PF (SUBLIMAZE) Given 04/22/2018 25 mcg injection 25-50 mcg 10:27 CDT 25-50 mcg, Intravenous, ONCE, 1 dose, Nicole 04/22/18 at 0845, Administer prior to procedure for anxiolysis fentaNYL citrate PF (SUBLIMAZE) Given 04/22/2018 25 mcg injection 10:33 CDT INTRA-PROCEDURE MED, Starting Nicole 04/22/18 at 1033, Until Nicole 04/22/18 at 1043 Given 04/22/2018 25 mcg 10:43 CDT heparin lock flush PF syringe 500 Units Given 04/22/2018 500 Units 500 Units, Intra-catheter, ONCE PRN, 1 11:28 CDT dose, Starting Nicole 04/22/18 at 0838, Until Nicole 04/22/18 at 2359, Catheter flush, When de-accessing a port-a-cath pack with 5 mL heparin (100 units/mL) unless contraindicated. NOTE: This is a HIGH ALERT Medication. LORazepam (ATIVAN) injection 0.5-1 mg Given 04/22/2018 1 mg 0.5-1 mg, Intravenous, ONCE, 1 dose, Nicole 09:18 CDT 04/22/18 at 0845, PROTECT FROM LIGHT in this encounter
--- OUTSIDE RECORDS SUMMARY | 2018-07-14 14:59 | XMS REPORT | Encounter Summary ---
Author Author [facility] Organization [facility] Address Unknown Phone Unavailable Care Team Providers Care Retail Store Assistant Name Role Phone Buster Erazo MD Unavailable Michelle Valencia MD Unavailable Jeffy Holbrook MD Unavailable Jass Paris MD Unavailable Lucy Guzmán KNOTTER Unavailable Tameka Juarez RN Unavailable Unavailable Ely Dunlap RN Unavailable Unavailable Mely [place] RN Unavailable Lisa Rae RN Unavailable Unavailable Promise Wiseman RN Unavailable Unavailable Mark Dixon MD Unavailable Radha Hung KNOTTER Unavailable Cecile Foote RN Unavailable Whitney Guy [...] Details Date Type Department Care Team Description 04/29/2018 Pharmacy Visit Call [facility] [address] [place] [id number] Social History Tobacco Use Types Packs/Day Years [...]
--- OUTSIDE RECORDS SUMMARY | 2018-07-14 14:59 | XMS REPORT | Encounter Summary ---
Author Author [facility] Organization [facility] Address Unknown Phone Unavailable Care Team Providers Care Hemodialysis Lab Technician Name Role Phone Buster Erazo MD Unavailable Michelle Valencia MD Unavailable Jeffy Holbrook MD Unavailable Jass Paris MD Unavailable Lucy Guzmán CLINIC ASSISTANT Unavailable Tameka Juarez RN Unavailable Unavailable Ely Dunlap RN Unavailable Unavailable Mely [place] RN Unavailable Lisa Rae RN Unavailable Unavailable Promise Wiseman RN Unavailable Unavailable Mark Dixon MD Unavailable Radha Hung CLINIC ASSISTANT Unavailable Cecile Foote RN Unavailable Whitney uGy MA Unavailable Unavailable Ara Espitia RN Unavailable [...] Date Type Department Care Team Description 04/29/2018 Orders Only [facility] Mariaelena Robertson MD [facility] Ex[facility] [address] [facility] [place] [address] [place] [address] [place] [address] [phone] Social History Tobacco Use Types Packs/Day Years [...]
--- OUTSIDE RECORDS SUMMARY | 2018-07-14 14:59 | XMS REPORT | Encounter Summary ---
Author Author [facility] Organization [facility] Address Unknown Phone Unavailable Care Team Providers Care Gastroenterology Professor Name Role Phone Buster Erazo MD Unavailable Michelle Valencia MD Unavailable Jeffy Holbrook MD Unavailable Jass Paris MD Unavailable Lucy Guzmán NURSE INTERN Unavailable Tameka Juarez RN Unavailable Unavailable Ely Dunlap RN Unavailable Unavailable Mely Ford RN Unavailable Lisa Rae RN Unavailable Unavailable Promise Wiseman RN Unavailable Unavailable Mark Dixon MD Unavailable Radha Hung NURSE INTERN Unavailable Cecile Foote RN Unavailable Whitney Guy [...] Details Date Type Department Care Team Description 04/28/2018 Pharmacy Visit Call Center [facility] [address] [place] [address] Social History Tobacco Use Types Packs/Day Years [...]
--- OUTSIDE RECORDS SUMMARY | 2018-07-14 14:59 | XMS REPORT | Encounter Summary ---
Author Author [facility] Organization [facility] Address Unknown Phone Unavailable Care Team Providers Care Director Industrial Nursing Name Role Phone Buster Erazo MD Unavailable Michelle Valencia MD Unavailable Jeffy Holbrook MD Unavailable Jass Paris MD Unavailable Lucy Guzmán STEEL TURNER Unavailable Tameka Juarez RN Unavailable Unavailable Ely Dunlap RN Unavailable Unavailable Mely Ford RN Unavailable Lisa Rae RN Unavailable Unavailable Promise Wiseman RN Unavailable Unavailable Mark Dixon MD Unavailable Radha Hung STEEL TURNER Unavailable Cecile Foote RN Unavailable Whitney Guy MA Unavailable Unavailable Ara Espitia RN Unavailable Unavailable Sandhya Alejandro MA Unavailable Unavailable Macy Bishop Unavailable Unavailable Betsey Tate RN Unavailable Unavailable Jose Carter RN Unavailable Unavailable Aixa Dugan RN Unavailable Unavailable Sara Gutierrez Unavailable Unavailable Mally Burkett RN Unavailable Unavailable Manan Mustafa MD Unavailable Kiana Gomez Unavailable Unavailable Melian Griffiths MD 3 Ayesha Lyn MD PCP Encounter Details Date Type Department Care Team Description 04/30/2018 Pharmacy Visit Call Center Pharmacy [address] [place] [address] Social History Tobacco Use Types Packs/Day Years [...]
--- OUTSIDE RECORDS SUMMARY | 2018-07-14 14:59 | XMS REPORT | Encounter Summary ---
Author Author [facility] Organization [facility] Address Unknown Phone Unavailable Care Team Providers Care Marketing Intern Name Role Phone Buster Erazo MD Unavailable Michelle Valencia MD Unavailable Jeffy Holbrook MD Unavailable Jass Paris MD Unavailable Lucy Guzmán ROUTER TENDER Unavailable Tameka Juarez RN Unavailable Unavailable Ely Dunlap RN Unavailable Unavailable Mely Ford RN Unavailable Lisa Rae RN Unavailable Unavailable Promise Wiseman RN Unavailable Unavailable Mark Dixon MD Unavailable Radha Hung ROUTER TENDER Unavailable Cecile Foote RN Unavailable Whitney Guy [...] PCP Reason for Visit * Reason Comments Chemotherapy Follow up Encounter Details Date Type Department Care Team Description 04/30/2018 Telephone [facility] Valeria Kessler PHARMD Chemotherapy Follow up [facility] [address] [place], [place] [address] [address] Social History Tobacco Use Types Packs/Day Years [...] as of this encounter Progress Notes * Valeria Kessler PHARMD - 04/30/2018 1:57 PM CDT Discontinued from Oral Oncology Patient Management Program Cirilo Bedoya has been removed from the Oral Oncology Patient Management Program due to progression. Patient has discontinued taking sorafenib. The patient's provider, Dr. Robertson, has noted the above information in their note. The patient may be re-enrolled at any time by contacting [phone]. Valeria Kessler PHARMD Clinical Pharmacist 04/30/2018 in this encounter Plan of Treatment Date Type Specialty Care Team Description 06/23/2018 Procedure Pass Oncology 06/23/2018 Procedure Pass Oncology as of this encounter Visit Diagnoses Not on filein this encounter
--- OUTSIDE RECORDS SUMMARY | 2018-07-14 14:59 | XMS REPORT | Encounter Summary ---
Author Author [facility] Organization [facility] Address Unknown Phone Unavailable Care Team Providers Care Second Butler Name Role Phone Buster Erazo MD Unavailable Michelle Valencia MD Unavailable Jeffy Holbrook MD Unavailable Jass Paris MD Unavailable Lucy Guzmán PULL UP HAND Unavailable Tameka Juarez RN Unavailable Unavailable Ely Dunlap RN Unavailable Unavailable Mely Ford RN Unavailable Lisa Rae RN Unavailable Unavailable Promise Wiseman RN Unavailable Unavailable Mark Dixon MD Unavailable Radha Hung PULL UP HAND Unavailable Cecile Foote RN Unavailable Whitney Guy [...] Care Team Description 04/29/2018 Orders Only [facility] Nazia, PULL UP HAND-TAX ATTORNEY [facility] Exam [address] [facility] [place] [address] [place] [address] [place] [address] [phone] Social History Tobacco Use Types Packs/Day Years [...]
--- OUTSIDE RECORDS SUMMARY | 2018-07-14 14:59 | XMS REPORT | Encounter Summary ---
Author Author [facility] Organization [facility] Address Unknown Phone Unavailable Care Team Providers Care Golf Course Starter Name Role Phone Buster Erazo MD Unavailable Michelle Valencia MD Unavailable Jeffy Holbrook MD Unavailable Jass Paris MD Unavailable Lucy Guzmán MUNITIONS HANDLER SUPERVISOR Unavailable Tameka Juarez RN Unavailable Unavailable Ely Dunlap RN Unavailable Unavailable Mely Ford RN Unavailable Lisa Rae RN Unavailable Unavailable Promise Wiseman RN Unavailable Unavailable Mark Dixon MD Unavailable Radha Hung MUNITIONS HANDLER SUPERVISOR Unavailable Cecile Foote RN Unavailable Whitney [...] Details Date Type Department Care Team Description 04/26/2018 Pharmacy Visit Call Center Pharmacy [address] [place] [address] Social History Tobacco Use Types Packs/Day Years [...]
--- OUTSIDE RECORDS SUMMARY | 2018-07-14 14:59 | XMS REPORT | Encounter Summary ---
Author Author [facility] Organization [facility] Address Unknown Phone Unavailable Care Team Providers Care Iron Worker Apprentice Name Role Phone Buster Erazo MD Unavailable Michelle Valencia MD Unavailable Jeffy Holbrook MD Unavailable Jass Paris MD Unavailable Lucy Guzmán SECURITY AMBASSADOR Unavailable Tameka Juarez RN Unavailable Unavailable Ely Dunlap RN Unavailable Unavailable Mely Ford RN Unavailable Lisa Rae RN Unavailable Unavailable Promise Wiseman RN Unavailable Unavailable Mark Dixon MD Unavailable Radha Hung SECURITY AMBASSADOR Unavailable Cecile Foote RN Unavailable Whitney Guy [...] Reason for Visit * Reason Comments Results 04/14 US 04/14 & 04/22 Labs Encounter Details Date Type Department Care Team Description 04/26/2018 Telephone Center for Joseph Guzman RN Results (04/14 US 04/14 & Transplantation-Hepatolog 04/22 Labs) [facility] [address] [place] [address] Social History Tobacco Use Types Packs/Day Years [...] Telephone Encounter - Joseph Guzman RN - 04/26/2018 9:15 AM CDT Reviewed labs with Patient's Sister. US to be scheduled on next appt date. * Telephone Encounter - Joseph Guzman RN - 04/26/2018 9:11 AM CDT ----- Message from Mely Jaeger APRN sent at 04/21/2018 11:25 AM CDT ----- TIPS is patent. No ascites. Plan to repeat US with doppler to check TIPS patency in 6 months. Schedule on day when pt has appt at [facility]. Contact pt's sister regarding results and recommendations. in this encounter Plan of Treatment Date Type Specialty Care Team Description 06/23/2018 Procedure Pass Oncology 06/23/2018 Procedure Pass Oncology Name Priority Associated Diagnoses Order Schedule US DOPPLER ABD PELV RETROPER COMP Routine Cirrhosis of liver with Expected: 08/16/2018 ascites, unspecified (Approximate), Expires: hepatic cirrhosis type 04/26/2019 (HCC) End-stage liver disease (HCC) Hepatic encephalopathy (HCC) S/P TIPS (transjugular intrahepatic portosystemic shunt) as of this encounter Visit Diagnoses Diagnosis End-stage liver disease (HCC) - Primary Other sequelae of chronic liver disease Hepatic encephalopathy (HCC) Hepatic encephalopathy S/P TIPS (transjugular intrahepatic portosystemic shunt) Other postprocedural status Cirrhosis of liver with ascites, unspecified hepatic cirrhosis type (HCC)
[2018-07-14 15:00] VITALS: BP 127/60
--- OUTSIDE RECORDS SUMMARY | 2018-07-14 15:00 | XMS REPORT | Encounter Summary ---
Author Author [facility] Organization [facility] Address Unknown Phone Unavailable Care Team Providers Care Demolition Hammer Operator Name Role Phone Buster Erazo MD Unavailable Michelle Valencia MD Unavailable Jeffy Holbrook MD Unavailable Jass Paris MD Unavailable Lucy Guzmán CONTROLS OPERATOR MOLDED GOODS Unavailable Tameka Juarez RN Unavailable Unavailable Ely Dunlap RN Unavailable Unavailable Mely Ford RN Unavailable Lisa Rae RN Unavailable Unavailable Promise Wiseman RN Unavailable Unavailable Mark Dixon MD Unavailable Radha Hung CONTROLS OPERATOR MOLDED GOODS Unavailable Cecile Foote RN Unavailable Whitney Guy [...] Trmt [facility] (hepatocellular [address] [facility] [address] carcinoma) (HCC) [address] [place] [address] [place] [phone] right lung (HCC) Phone: Phone: Secondary [phone] malignant Fax: neoplasm of left [phone] lung (HCC) P rocedures nivolumab (OPDIVO) Encounter Details Date Type Department Care Team Description 04/22/2018 [facility] Nazia Huang APRN-MAY Encounter [facility] [address] Treatment [place] [address] [place] [address] [address] [place] [id number] Social History Tobacco Use Types Packs/Day Years Used Date Current Every Day Smoker Cigarettes 0.25 45 Smokeless Tobacco: Never Used Comments: trying to quit Alcohol Use Drinks/Week oz/Week Comments No quit '08; moderate alcohol intake prior (up to 8 drinks/week) Sex Assigned at Date Recorded Not on file as of this encounter Last Filed Vital Signs Vital Sign Reading Time Taken Blood Pressure 104/58 04/22/2018 1:32 PM CDT Pulse 66 04/22/2018 1:32 PM CDT Temperature 36.8 C (98.2 F) 04/22/2018 1:32 PM CDT Respiratory Rate 16 04/22/2018 1:32 PM CDT Oxygen Saturation 99% 04/22/2018 1:32 PM CDT Inhaled Oxygen - - Concentration Weight 96.3 kg (212 lb 6.4 oz) 04/22/2018 1:32 PM CDT Height - - Body Mass Index 28.81 04/22/2018 1:32 PM CDT in this encounter Functional Status Functional [...] encounter Discharge Instructions * Patient Instructions - Georgia Ruth RN - 04/22/2018 3:08 PM CDT Cancer Center Chemotherapy Instructions Cirilo Bedoya 04/22/2018 Chemotherapy Drugs: Opdivo Call Immediately to report the following: Unexplained bleeding or bleeding that will not stop Difficulty swallowing Shortness of breath, wheezing, or trouble breathing Rapid, irregular heartbeat; chest pain Dizziness, lightheadedness Rash or cut that swells or turns red, feels hot or painful, or begin to ooze Diarrhea Uncontrolled nausea or vomiting Fever of 100.4 F or higher, or chills Important Phone Numbers: Cancer Center Main Number (answered 24 hours a day) [phone] [facility] Scheduling (appointments) [phone] Grinder Operator External Tool [phone] Livestock Nutritionist [phone] in this encounter Medications at Time of [...] as of this encounter Progress Notes * Georgia Ruth RN - 04/22/2018 4:57 PM CDT CHEMO NOTE Verified chemo consent signed and in chart. Verified initiate chemo order in O2 Blood return positive via: Port (Single) BSA and dose double checked (agree with orders as written) with: yes - see MAR Labs/applicable tests checked: Comprehensive Metabolic Panel (CMP) Chemo regime: Drug/cycle/day C1 D1 nivolumab (OPDIVO) 240 mg in sodium chloride 0.9% (NS) 124 mL IVPB Rate verified and armband double checkwith second RN: yes Patient education offered and stated understanding. Denies questions at this time. Patient arrived to CC treatment at 12:23 for Opdivo. VS stable. PAC placed today by IR and flushed with positive blood return noted. Parameters met for treatment. Opdivo initiated per treatment plan. Treatment complete at 15:34, with brisk blood return and 20 mL NS flush post biotherapy administration. Pt tolerated without adverse event. Schedule reviewed and sister and patient declined, uses MyChart. Pt left clinic ambulatory at 15:50 accompanied by sister without further questions or concerns. - Georgia Ruth RN in this encounter Miscellaneous Notes * Addendum Note - Candelaria Estrada - 04/22/2018 11:59 PM CDT Encounter addended by: Candelaria Estrada on: 04/28/2018 1:17 PM
Actions taken: Charge Capture section accepted [...] Given 04/22/2018 500 Units 500 Units, Intra-catheter, ONCE, 1 dose, 15:36 CDT Nicole 04/22/18 at 1430, NOTE: This is a HIGH ALERT Medication. nivolumab (OPDIVO) 240 mg in sodium Given - New 04/22/2018 240 mg 248 mL/hr chloride 0.9% (NS) 124 mL IVPB Bag 14:58 CDT 240 mg, Intravenous, 124 mL, Administer over 30 Minutes, ONCE, 1 dose, Nicole 04/22/18 at 1500, NOTE: This is a HIGH ALERT Medication. in this encounter
--- OUTSIDE RECORDS SUMMARY | 2018-07-14 15:00 | XMS REPORT | Encounter Summary ---
Author Author [facility] Organization [facility] Address Unknown Phone Unavailable Care Team Providers Care Automobile Rental Clerk Name Role Phone Buster Erazo MD Unavailable Michelle Valencia MD Unavailable Jeffy Holbrook MD Unavailable Jass Paris MD Unavailable Lucy Guzmán WELFARE INTERVIEWER Unavailable Tameka Juarez RN Unavailable Unavailable Ely Dunlap RN Unavailable Unavailable Mely Ford RN Unavailable Lisa Rae RN Unavailable Unavailable Promise Wiseman RN Unavailable Unavailable Mark Dixon MD Unavailable Radha Hung WELFARE INTERVIEWER Unavailable Cecile Foote RN Unavailable Whitney Guy [...] Details Date Type Department Care Team Description [facility] [address] [facility] [address] [facility] [place] [address] [place] [address] [phone] Social History Tobacco Use Types Packs/Day Years [...] tablet twice daily. as of this encounter Plan of Treatment Date Type Specialty Care Team Description 06/23/2018 Procedure Pass Oncology 06/23/2018 Procedure Pass Oncology as of this encounter Visit Diagnoses Not on filein this encounter
--- OUTSIDE RECORDS SUMMARY | 2018-07-14 15:00 | XMS REPORT | Encounter Summary ---
Author Author [facility] Organization [facility] Address Unknown Phone Unavailable Care Team Providers Care Subscription Agent Name Role Phone Buster Erazo MD Unavailable Michelle Valencia MD Unavailable Jeffy Holbrook MD Unavailable Jass Paris MD Unavailable Lucy Guzmán UTILITY WORKER [place] Unavailable Tameka Juarez RN Unavailable Unavailable Ely Dunlap RN Unavailable Unavailable Mely Ford RN Unavailable Lisa Rae RN Unavailable Unavailable Promise Wiseman RN Unavailable Unavailable Mark Dixon MD Unavailable Radha Hung UTILITY WORKER [place] Unavailable Cecile Foote RN Unavailable Whitney Guy [...] Details Date Type Department Care Team Description 04/15/2018 Telephone [facility] Mariaelena Robertson MD Appointment Request [facility] Exam [address] [facility] [place] [facility] [place] [address] [facility] [place] [address] [place] [address] [phone] Social History Tobacco Use Types Packs/Day Years [...] encounter Miscellaneous Notes * Telephone Encounter - Payal Sadler - 04/15/2018 2:47 PM CDT Called pt to let him know about the change of time for treatment on 04/22 agrees and plan to be in for appt in this encounter Plan of Treatment Date Type Specialty Care Team Description 06/23/2018 Procedure Pass Oncology 06/23/2018 Procedure Pass Oncology as of this encounter Visit Diagnoses Not on filein this encounter
--- OUTSIDE RECORDS SUMMARY | 2018-07-14 15:00 | XMS REPORT | Encounter Summary ---
Author Author [facility] Organization [facility] Address Unknown Phone Unavailable Care Team Providers Care Principal Research Economist Name Role Phone Buster Erazo MD Unavailable Michelle Valencia MD Unavailable Jeffy Holbrook MD Unavailable Jass Paris MD Unavailable Lucy Guzmán AUTOMOTIVE WORKER FOREMAN Unavailable Tameka Juarez RN Unavailable Unavailable Ely Dunlap RN Unavailable Unavailable Mely Ford RN Unavailable Lisa Rae RN Unavailable Unavailable Promise Wiseman RN Unavailable Unavailable Mark Dixon MD Unavailable Radha Hung AUTOMOTIVE WORKER FOREMAN Unavailable Cecile Foote RN Unavailable Whitney Guy [...] Details Date Type Department Care Team Description 04/20/2018 Telephone [facility] Mariaelena Robertson MD Cancer Follow up [facility] Exam [address] [facility] [place] [address] [place] [address] [place] [address] [phone] Social History Tobacco Use Types Packs/Day Years [...] Telephone Encounter - Neva Ann RN - 04/20/2018 2:20 PM CDT Patient sister called in inquiring if Nivolumab approved. Inform [employer] plan shows Nivolumab is authorized. in this encounter Plan of Treatment Date Type Specialty Care Team Description 06/23/2018 Procedure Pass Oncology 06/23/2018 Procedure Pass Oncology as of this encounter Visit Diagnoses Not on filein this encounter
--- OUTSIDE RECORDS SUMMARY | 2018-07-14 15:00 | XMS REPORT | Encounter Summary ---
Author Author [facility] Organization [facility] Address Unknown Phone Unavailable Care Team Providers Care Adjunct Nursing Faculty Name Role Phone Buster Erazo MD Unavailable Michelle Valencia MD Unavailable Jeffy Holbrook MD Unavailable Jass Paris MD Unavailable Lucy Guzmán BOLOGNA MAKER Unavailable Tameka Juarez RN Unavailable Unavailable Ely Dunlap RN Unavailable Unavailable Mely Ford RN Unavailable Lisa Rae RN Unavailable Unavailable Promise Wiseman RN Unavailable Unavailable Mark Dixon MD Unavailable Radha Hung BOLOGNA MAKER Unavailable Cecile Foote RN Unavailable Whitney Guy [...] Date Type Department Care Team Description 04/14/2018 [facility] Mely Jaeger APRN Encounter [facility] [address] [place] [address] [place] [address] [place], [place] [id number] Social History Tobacco Use Types Packs/Day Years [...] Procedure Name Priority Date/Time Associated Diagnosis Comments US DOPPLER ABD PELV Routine 04/14/2018 Alcoholic cirrhosis of Results for this RETROPER COMP 11:59 AM CDT liver without ascites procedure are in the (HCC) results section. End-stage liver disease (HCC) S/P TIPS (transjugular intrahepatic portosystemic shunt) HCC (hepatocellular carcinoma) (HCC) Hepatic encephalopathy (HCC) US ABDOMEN COMPLETE Routine 04/14/2018 Cirrhosis of liver Results for this 11:59 AM CDT without ascites, procedure are in the unspecified hepatic results section. cirrhosis type (HCC) HCC (hepatocellular carcinoma) (HCC) End-stage liver disease (HCC) S/P TIPS (transjugular intrahepatic portosystemic shunt) in this encounter Results * US ABDOMEN COMPLETE (04/14/2018 11:59 AM) [...] Phone Number [facility] RESULTS * US DOPPLER ABD PELV RETROPER COMP [...] RESULTS in this encounter Visit Diagnoses Diagnosis Alcoholic cirrhosis of liver without ascites (HCC) Alcoholic cirrhosis of liver End-stage liver disease (HCC) Other sequelae of chronic liver disease S/P TIPS (transjugular intrahepatic portosystemic shunt) Other postprocedural status HCC (hepatocellular carcinoma) (HCC) Malignant neoplasm of liver, primary Hepatic encephalopathy (HCC) Hepatic encephalopathy Cirrhosis of liver without ascites, unspecified hepatic cirrhosis type (HCC)
--- OUTSIDE RECORDS SUMMARY | 2018-07-14 15:00 | XMS REPORT | Encounter Summary ---
Author Author [facility] Organization [facility] Address Unknown Phone Unavailable Care Team Providers Care Settlement Technician Name Role Phone Buster Erazo MD Unavailable Michelle Valencia MD Unavailable Jeffy Holbrook MD Unavailable Jass Paris MD Unavailable Lucy Guzmán PRODUCTION LINE WORKER Unavailable Tameka Juarez RN Unavailable Unavailable Ely Dunlap RN Unavailable Unavailable Mely Ford RN Unavailable Lisa Rae RN Unavailable Unavailable Promise Wiseman RN Unavailable Unavailable Mark Dixon MD Unavailable Radha Hung PRODUCTION LINE WORKER Unavailable Cecile Foote RN Unavailable Whitney Guy [...] Date Type Department Care Team Description 04/14/2018 [facility] Mely Jaeger APRN Cirrhosis of liver Orders Trans[facility]Hepatolog [address] without ascites, y Clinic [place] [address] unspecified hepatic [facility] [address] [place] [address] cirrhosis type (HCC) ; [address] [phone] HCC (hepatocellular [place], [place] carcinoma) (HCC); [phone] End-stage liver disease [phone] (HCC); S/P TIPS (transjugular intrahepatic portosystemic shunt) Social History Tobacco Use Types Packs/Day Years [...] Oncology as of this encounter Results * US ABDOMEN COMPLETE [...] is unremarkable. No abdominopelvic ascites. Procedure Note Carlie, Radiant Results - 04/14/2018 5:27 PM CDT [...] RESULTS in this encounter Visit Diagnoses Diagnosis Cirrhosis of liver without ascites, unspecified hepatic cirrhosis type (HCC) HCC (hepatocellular carcinoma) (HCC) Malignant neoplasm of liver, primary End-stage liver disease (HCC) Other sequelae of chronic liver disease S/P TIPS (transjugular intrahepatic portosystemic shunt) Other postprocedural status
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
--- OUTSIDE RECORDS SUMMARY | 2018-07-14 15:00 | XMS REPORT | Encounter Summary ---
Author Author [facility] Organization [facility] Address Unknown Phone Unavailable Care Team Providers Care Recruitment Specialist Name Role Phone Buster Erazo MD Unavailable Michelle Valencia MD Unavailable Jeffy Holbrook MD Unavailable Jass Paris MD Unavailable Lucy Guzmán ANALYST Unavailable Tameka Juarez RN Unavailable Unavailable Ely Dunlap RN Unavailable Unavailable Mely Ford RN Unavailable Lisa Rae RN Unavailable Unavailable Promise Wismean RN Unavailable Unavailable Mark Dixon MD Unavailable Radha Hung ANALYST Unavailable Cecile Foote RN Unavailable Whitney Guy [...] Details Date Type Department Care Team Description 04/19/2018 Pre/Post [facility] Tc Sifuentes RN Procedure Hospital Radiology [facility] [address]nd [address] [place] [address] Social History Tobacco Use Types Packs/Day Years [...] as of this encounter Progress Notes * Tc Sifuentes RN - 04/19/2018 12:59 PM CDT Interventional Radiology Outpatient Scheduling Checklist 1. Procedure: Port Placement. Pt's sister Love denies Hx of JOI 2. Date of Procedure: 04/22/18 3. Arrival Time: 0800 4. Procedure Time: 15 5. Correct Procedural Room Assignment: [facility] Room #3 6. Blood Thinners Triaged and instructed per protocol: N/A 7. Order Verified: Yes 8. Patient informed regarding procedure: Yes 9. Patient instructed to have a bobtail driver: Yes 10. Patient instructed on NPO status: No solids 8 hours prior to procedure MN , clear liquids till 2 hours prior to procedure 0700, then @ 2 hours prior to procedure NPO. 11. Specimen needed: Y/N: NO 12. Allergies Verified: Y/N: Yes 13. Iodine Allergy: Y/N: If yes and receiving Iodine has the patient been premedicated: Y/N: No 14. Does the patient have labs according to procedural policy: Y/N: Yes 15. Will the patient need to be admitted/possible admission: Y/N: NA 16. If YES to possible admission has the patient been instructed: Y/N: NA 17. Patient States Understanding: Y/N Yes 18. Hx JOI: Y/N: Pt instructed to bring PAP Machine: N/A in this encounter Plan of Treatment Date Type Specialty Care Team Description 06/23/2018 Procedure Pass Oncology 06/23/2018 Procedure Pass Oncology as of this encounter Visit Diagnoses Not on filein this encounter
--- OUTSIDE RECORDS SUMMARY | 2018-07-14 15:00 | XMS REPORT | Encounter Summary ---
Author Author [facility] Organization [facility] Address Unknown Phone Unavailable Care Team Providers Care Survey Manager Name Role Phone Buster Erazo MD Unavailable Michelle Valencia MD Unavailable Jeffy Holbrook MD Unavailable Jass Paris MD Unavailable Lucy Guzmán PERSONAL INJURY SPECIALIST Unavailable Tameka Juarez RN Unavailable Unavailable Ely Dunlap RN Unavailable Unavailable Mely Ford RN Unavailable Lisa Rae RN Unavailable Unavailable Promise Wiseman RN Unavailable Unavailable Mark Dixon MD Unavailable Radha Hung PERSONAL INJURY SPECIALIST Unavailable Cecile Foote RN Unavailable Whitney [...] Date Type Department Care Team Description 04/20/2018 [facility] Exam [address] [facility] [place] [address] [place] [address] [place] [address] [phone] Social History Tobacco Use Types Packs/Day Years [...] as of this encounter Progress Notes * Neva Ann RN - 04/20/2018 2:18 PM CDT Referral faxed to Dr. Tunde hawkins for management of Nivolumab. in this encounter Plan of Treatment Date Type Specialty Care Team Description 06/23/2018 Procedure Pass Oncology 06/23/2018 Procedure Pass Oncology as of this encounter Visit Diagnoses Not on filein this encounter
--- OUTSIDE RECORDS SUMMARY | 2018-07-14 15:00 | XMS REPORT | Encounter Summary ---
Author Author [facility] Organization [facility] Address Unknown Phone Unavailable Care Team Providers Care Outsole Rounder Name Role Phone Buster Erazo MD Unavailable Michelle Valencia MD Unavailable Jeffy Holbrook MD Unavailable Jass Paris MD Unavailable Lucy Guzmán FLASH WELDER Unavailable Tameka Juarez RN Unavailable Unavailable Ely Dunlap RN Unavailable Unavailable Mely Ford RN Unavailable Lisa Rae RN Unavailable Unavailable Promise Wiseman RN Unavailable Unavailable Mark Dixon MD Unavailable Radha Hung FLASH WELDER Unavailable Cecile Foote RN Unavailable Whitney Guy MA Unavailable Unavailable Ara Espitia RN Unavailable Unavailable Sandhya Alejandro MA Unavailable Unavailable Macy Bishop Unavailable Unavailable Betsey Tate RN Unavailable Unavailable Jose Carter RN Unavailable Unavailable Aixa Dugan RN Unavailable Unavailable Sara Gutierrez Unavailable Unavailable Mally Burkett RN Unavailable Unavailable Manan Mustafa MD Unavailable Kaina Gomez Unavailable Unavailable Melina Griffiths MD 3 Ayesha Lyn MD PCP Encounter Details Date Type Department Care Team Description 04/14/2018 Pharmacy Visit [facility] [address] [place] [id number] Social History Tobacco Use Types Packs/Day Years [...]
--- OUTSIDE RECORDS SUMMARY | 2018-07-14 15:01 | XMS REPORT | Encounter Summary ---
Author Author [facility] Organization [facility] Address Unknown Phone Unavailable Care Team Providers Care Cane Piler Name Role Phone Buster Erazo MD Unavailable Michelle Valencia MD Unavailable Jeffy Holbrook MD Unavailable Jass Paris MD Unavailable Lucy Guzmán BOOT LACE CUTTER MACHINE Unavailable Tameka Juarez RN Unavailable Unavailable Ayesha Lyn MD PCP Ely Dunlap RN Unavailable Unavailable Mely Ford RN Unavailable Lisa Rae RN Unavailable Unavailable Promise Wiseman RN Unavailable Unavailable Mark Dixon MD Unavailable Radha Hung BOOT LACE CUTTER MACHINE Unavailable Cecile Foote RN Unavailable Whitney Guy [...] Details Date Type Department Care Team Description 01/13/2018 Procedure Pass [facility] Radiology [address] [place] [address] Social History Tobacco Use Types Packs/Day Years [...] the patient have a hearing impairment: No 11/09/2017 Does the patient have a visual impairment: Yes 11/09/2017 Does the patient have impaired ambulation: Yes 11/09/2017 Does the patient have an activity of daily living No 11/09/2017 (ADL) impairment: Does the patient have an instrumental activity of Yes 11/09/2017 daily living (IADL) impairment: Cognitive Status Response Date of Assessment Does the patient have a cognitive impairment: No 11/09/2017 as of this encounter Plan of Treatment Date Type Specialty Care Team Description 06/23/2018 Procedure Pass Oncology 06/23/2018 Procedure Pass Oncology as of this encounter Visit Diagnoses Not on filein this encounter
--- OUTSIDE RECORDS SUMMARY | 2018-07-14 15:01 | XMS REPORT | Encounter Summary ---
Author Author [facility] Organization [facility] Address Unknown Phone Unavailable Care Team Providers Care Nike Athlete Name Role Phone Buster Erazo MD Unavailable Michelle Valencia MD Unavailable Jeffy Holbrook MD Unavailable Jass Paris MD Unavailable Lucy Guzmán DIRECTOR CLIENT Unavailable Tameka Juarez RN Unavailable Unavailable Ely Dunlap RN Unavailable Unavailable Mely Ford RN Unavailable Lisa Rae RN Unavailable Unavailable Promise Wiseman RN Unavailable Unavailable Mark Dixon MD Unavailable Radha Hung DIRECTOR CLIENT Unavailable Cecile Foote RN Unavailable Whitney Guy [...] Contact New Request Radiology Diagnoses Mariaelena Robertson, Cirrhosis of MD liver without [address], [address] unspecified [place] [address] [place], [place] cirrhosis type [address] (HCC) Phone: Hepatocellular [phone] carcinoma (HCC) Fax: P [phone] ABD WO/W PELVIS W CT ABDOMEN WO/W CONTRAST * Radiology Services (Routine) Status Reason Specialty Diagnoses / Referred By Referred To Procedures Contact Contact New Request Radiology Diagnoses Mariaelena Robertson, Cirrhosis of MD liver without [address], [address] unspecified [place] [address] [place], [place] cirrhosis type [address] (HCC) Phone: Hepatocellular [phone] carcinoma (HCC) Fax: P [phone] ABD WO/W PELVIS W CT ABDOMEN WO/W CONTRAST * Radiology Services Status Reason Specialty Diagnoses / Referred By Referred To Procedures Contact Contact No Auth Needed Radiology Diagnoses Mariaelena Robertson, Ww Ct Cirrhosis of 1st fl Ko 1100 liver without [address], [address] unspecified [place] [address] [place] [address] [place], [place] Phone: cirrhosis type [address] (HCC) Phone: Hepatocellular [phone] carcinoma (HCC) Fax: P [phone] CHEST W CONTRAST CHG CT ABDOMEN & PELVIS W/CONTRAST MATERIAL * Radiology Services Status Reason Specialty Diagnoses / Referred By Referred To Procedures Contact Contact No Auth Needed Radiology Diagnoses Mariaelena Robertson, Ww Ct Cirrhosis of 1st fl [address] liver without [address], [address] unspecified [place] [address] [place] [address] [place], [place] Phone: cirrhosis type [address] (HCC) Phone: Hepatocellular [phone] carcinoma (HCC) Fax: P [phone] CHEST W CONTRAST CHG CT ABDOMEN & PELVIS W/CONTRAST MATERIAL Reason for Visit * Radiology Services Status Reason Specialty Diagnoses / Referred By Referred To Procedures Contact Contact No Auth Needed Radiology Diagnoses Mariaelena Robertson, Ww Ct Cirrhosis of MD 1st fl [address] liver without [address], [address] unspecified [place] [address] [place] [address] hepatic [place], [place] Phone: cirrhosis type [address] (HCC) Phone: Hepatocellular [phone] carcinoma (HCC) Fax: P [phone] CHEST W CONTRAST CHG CT ABDOMEN & PELVIS W/CONTRAST MATERIAL Encounter Details Date Type Department Care Team Description 04/14/2018 [facility] Mariaelena Robertson MD Encounter [place] [facility] [address] 1[address] [place] [address] [place] [address] [place] [address] [phone] Social History Tobacco Use Types Packs/Day Years [...] Name Priority Date/Time Associated Diagnosis Comments CT ABD WO/W PELVIS W Routine 04/14/2018 [...] section. cirrhosis type (HCC) Hepatocellular carcinoma (HCC) PROTIME INR (PT) Routine 04/14/2018 Cirrhosis of [...] section. cirrhosis type (HCC) Hepatocellular carcinoma (HCC) in this encounter Results * CT ABD WO/W PELVIS W (04/14/2018 [...] RAD RESULTS * CT CHEST W CONTRAST (04/14/2018 10:41 AM) Impressions Performed At Chest: [...] on 04/14/2018 10:58 AM. Performing Organization Address City/[facility]/Zipcode Phone Number RAD RESULTS * PROTIME INR (PT) (04/14/2018 9:58 AM) INR 1.2 0.8 - 1.2 [facility] Specimen Blood Performing Organization Address City/[facility]/Zipcode Phone Number [facility] [address] [place] [address] * COMPREHENSIVE METABOLIC PANEL (04/14/2018 9:58 AM) Sodium 137 137 - 147 MMOL/L [facility] Potassium 3.6 3.5 - 5.1 MMOL/L [facility] Chloride 107 98 - 110 MMOL/L [facility] Glucose 175 (H) 70 - 100 MG/DL [facility] Blood Urea Nitrogen 11 7 - 25 MG/DL [facility] Creatinine 0.61 0.4 - 1.24 MG/DL [facility] Calcium 8.4 (L) 8.5 - 10.6 MG/DL [facility] Total Protein 6.6 6.0 - 8.0 G/DL [facility] Total Bilirubin 3.5 (H) 0.3 - 1.2 MG/DL [facility] Albumin 2.4 (L) 3.5 - 5.0 G/DL [facility] Alk Phosphatase 228 (H) 25 - 110 U/L [facility] AST (SGOT) 72 (H) 7 - 40 U/L [facility] CO2 31 (H) 21 - 30 MMOL/L [facility] ALT (SGPT) 46 7 - 56 U/L [facility] Anion Gap <1 (L) 3 - 12 [facility] eGFR [...] for questions. Specimen Blood Performing Organization Address [facility] Phone Number [facility] [address] [place] [address] * CBC AND DIFF (04/14/2018 9:58 AM) White Blood Cells 5.7 4.5 - 11.0 K/UL [facility] RBC 4.70 4.4 - 5.5 M/UL [facility] Hemoglobin 13.2 (L) 13.5 - 16.5 GM/DL [facility] Hematocrit 38.8 (L) 40 - 50 % [facility] MCV 82.6 80 - 100 FL [facility] MCH 28.2 26 - 34 PG [facility] MCHC 34.1 32.0 - 36.0 G/DL [facility] RDW 21.4 (H) 11 - 15 % [facility] Platelet Count 58 (L) 150 - 400 K/UL [facility] MPV 9.3 7 - 11 FL [facility] Neutrophils 63 41 - 77 % [facility] Lymphocytes 24 24 - 44 % [facility] Monocytes 9 4 - 12 % [facility] Eosinophils 3 0 - 5 % [facility] Basophils 1 0 - 2 % [facility] Absolute Neutrophil Count 3.60 1.8 - 7.0 K/UL [facility] Absolute Lymph Count 1.40 1.0 - 4.8 K/UL [facility] Absolute Monocyte Count 0.50 0 - 0.80 K/UL [facility] Absolute Eosinophil Count 0.20 0 - 0.45 K/UL [facility] Absolute Basophil Count 0.00 0 - 0.20 K/UL [facility] Specimen Blood Performing Organization Address [facility] Phone Number [facility] [address] [place] [address] * ALPHA FETO PROTEIN (AFP) (04/14/2018 9:58 AM) Alpha Feto Protein 2.3 0.0 - 15.0 NG/ML [facility] Specimen Blood Performing Organization Address City/State/Zipcode Phone Number [facility] [address] [place] [address] in this encounter Visit Diagnoses Diagnosis Cirrhosis of liver without ascites, unspecified hepatic cirrhosis type (HCC) Hepatocellular carcinoma (HCC) Malignant neoplasm of liver, primary Administered Medications Medication Order MAR Action Action Date Dose Rate Site iohexol ([id number]-350) 350 mg/mL Given 04/14/2018 100 mL injection 100 mL 10:36 CDT 100 mL, Intravenous, ONCE, 1 dose, 04/14/18 at 1000, NOTE: This is a HIGH ALERT Medication. sodium chloride PF 0.9% injection 50 mL Given 04/14/2018 50 mL 50 mL, Intravenous, ONCE, 1 dose, Wed 10:36 CDT 04/14/18 at 1000, Intra-procedure (IR) in this encounter
--- OUTSIDE RECORDS SUMMARY | 2018-07-14 15:01 | XMS REPORT | Encounter Summary ---
Author Author [facility] Organization [facility] Address Unknown Phone Unavailable Care Team Providers Care Liner Worker Name Role Phone Buster Erazo MD Unavailable Michelle Valencia MD Unavailable Jeffy Holbrook MD Unavailable Jass Paris MD Unavailable Lucy Guzmán SYS DIR Unavailable Tameka Juarez RN Unavailable Unavailable Ayesha Lyn MD PCP Ely Dunlap RN Unavailable Unavailable Mely Ford RN Unavailable Lisa Rae RN Unavailable Unavailable Promise Wiseman RN Unavailable Unavailable Mark Dixon MD Unavailable Radha Hung SYS DIR Unavailable Cecile Foote RN Unavailable Whitney Guy [...] Care Team Description 01/13/2018 Procedure Pass [facility] Radiology 1st fl [address] [place] [address] Social History Tobacco Use Types Packs/Day Years [...]
--- OUTSIDE RECORDS SUMMARY | 2018-07-14 15:05 | XMS REPORT | CCD ---
Author Author [facility] Organization [facility] Address [address] [place] [address] Phone Care Team Providers Care Retail Advisor Name Role Phone PP Unavailable CCM Unavailable Summary Purpose Interface Exchange Insurance Providers Payer name Policy type / Coverage type Covered green party ID Effective Begin Date Effective End Date WPS Medicare Part B Medicare Part B [id number] Unknown [employer] - Medicare Part B [id number] Unknown Family history Sister Diagnosis Age At Onset Cancer Unknown Father Diagnosis Age At Onset Heart Attack Unknown Stroke Unknown Coronary Artery Disease Unknown Social History Social History Element Codes Description Effective Dates Marital status Unknown 12/20/2014 Number of children Unknown 0 12/20/2014 Employment Unknown Retired 12/20/[address]: 10829396 Currently smokes tobacco 12/20/2014 Number of years using tobacco Unknown 40 - 49 12/20/2014 Number of cigarettes/day Unknown < 10 12/20/[address]: 793747 Currently drinks alcohol 12/20/2014 Allergies, Adverse Reactions, Alerts Substance Reaction Codes Entered Date Inactivated Date Status * NO KNOWN DRUG ALLERGIES Unknown 07/21/2016 No Inactive Date Active * NO KNOWN FOOD ALLERGIES Unknown 12/20/2014 No Inactive Date Active Past Medical History Illness Codes Condition Status Onset Date Resolved Date Chronic pain syndrome ICD-9: 338.4 ICD-10: G89.4 Active 12/19/2014 Unknown Essential (primary) hypertension ICD-9: 401.1 ICD-10: I10 Active 07/29/2017 Unknown Insomnia due to medical condition ICD-9: 327.01 ICD-10: G47.01 Active 01/21/2016 Unknown Type 2 diabetes mellitus with hyperglycemia ICD-9: 250.02 ICD-10: E11.65 Active 03/18/2018 Unknown Muscle weakness (generalized) ICD-9: 728.87 ICD-10: M62.81 Active 03/18/2018 Unknown Type 2 diabetes mellitus without complications ICD-9: 250.00 ICD-10: E11.9 Active 12/19/2014 Unknown Unsteadiness on feet ICD-9: 781.2 ICD-10: R26.81 Active 03/18/2018 Unknown Chronic obstructive pulmonary disease, unspecified ICD-9: 496 ICD-10: J44.9 Active 09/03/2015 Unknown Encounter for general adult medical examination with abnormal findings ICD-9: V70.0 ICD-10: Z00.01 Active 01/26/2018 Unknown Other specified diseases of liver ICD-9: 573.8 ICD-10: K76.89 Active 07/29/2017 Unknown 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 Active 01/22/2015 Unknown Encounter for immunization ICD-9: V04.81 ICD-10: Z23 Active 04/21/2016 Unknown Essential (primary) hypertension ICD-9: 401.9 ICD-10: I10 Active 03/21/2015 Unknown Encounter for immunization ICD-9: V03.9 ICD-10: Z23 Active 04/02/2017 Unknown Epistaxis ICD-9: 784.7 ICD-10: R04.0 Active 10/22/2015 Unknown Tobacco use ICD-9: 305.1 ICD-10: Z72.0 Active 04/21/2016 Unknown Cough ICD-9: 786.2 ICD-10: R05 Active 12/22/2016 Unknown Other malaise ICD-9: 780.79 ICD-10: R53.81 Active 12/22/2016 Unknown Shortness of breath ICD-9: 786.05 ICD-10: R06.02 Active 12/22/2016 Unknown Encounter for general adult medical examination without abnormal findings ICD-9: V70.0 ICD-10: Z00.00 Active 12/04/2016 Unknown Other ascites ICD-9: 789.59 ICD-10: R18.8 Active 09/08/2016 Unknown Presence of other vascular implants and grafts ICD-9: V45.89 ICD-10: Z95.828 Active 09/08/2016 Unknown Generalized abdominal pain ICD-9: 789.07 ICD-10: R10.84 Active 08/19/2016 Unknown Right upper quadrant pain ICD-9: 789.01 ICD-10: R10.11 Active 04/21/2016 Unknown Dysuria ICD-9: 788.1 ICD-10: R30.0 Active 01/03/2016 Unknown Encounter for follow-up examination after completed treatment for conditions other than malignant neoplasm ICD-9: V67.9 ICD-10: Z09 Active 11/15/2015 Unknown Carrier of viral hepatitis C ICD-9: V02.62 ICD-10: Z22.52 Active 12/19/2014 Unknown Vitamin D deficiency, unspecified ICD-9: 268.9 ICD-10: E55.9 Active 10/22/2015 Unknown Insomnia, unspecified ICD-9: 780.52 ICD-10: G47.00 Active 05/14/2015 Unknown ESSENTIAL HYPERTENSION ICD-9: 401.9 Active 03/21/2015 Unknown Esophageal varices Unknown Active 01/23/2015 Unknown DIABETES TYPE II ICD-9 : 250.00 Active 12/19/2014 Unknown Tumor of liver ICD-9: 239.0 Active 01/22/2015 Unknown Umbilical hernia ICD-9 : 553.1 Active 01/22/2015 Unknown Urinary tract infection ICD-9: 599.0 Active 01/22/2015 Unknown Diabetes Unknown Active 12/20/2014 Unknown Hyperlipidemia Unknown Active 12/20/2014 Unknown Hypertension Unknown Active 12/20/2014 Unknown BACKACHE ICD-9: 724.5 Active 12/19/2014 Unknown CHRONIC PAIN SYNDROME ICD-9: 338.4 Active 12/19/2014 Unknown ESOPHAGEAL REFLUX ICD- 9: 530.81 Active 12/19/2014 Unknown 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 Active 12/19/2014 Unknown Problems Condition Codes Effective Dates Condition Status Chronic pain syndrome ICD-9: 338.4 ICD-10: G89.4 12/19/2014 Active Essential (primary) hypertension ICD-9: 401.1 ICD-10: I10 07/29/2017 Active Insomnia due to medical condition ICD-9: 327.01 ICD-10: G47.01 01/21/2016 Active Type 2 diabetes mellitus with hyperglycemia ICD-9: 250.02 ICD-10: E11.65 03/18/2018 Active Muscle weakness (generalized) ICD-9: 728.87 ICD-10: M62.81 03/18/2018 Active Type 2 diabetes mellitus without complications ICD-9: 250.00 ICD-10: E11.9 12/19/2014 Active Unsteadiness on feet ICD-9: 781.2 ICD-10: R26.81 03/18/2018 Active Chronic obstructive pulmonary disease, unspecified ICD-9: 496 ICD-10: J44.9 09/03/2015 Active Encounter for general adult medical examination with abnormal findings ICD-9: V70.0 ICD-10: Z00.01 01/26/2018 Active Other specified diseases of liver ICD-9: 573.8 ICD-10: K76.89 07/29/2017 Active 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 01/22/2015 Active Encounter for immunization ICD-9: V04.81 ICD-10: Z23 04/21/2016 Active Essential (primary) hypertension ICD-9: 401.9 ICD-10: I10 03/21/2015 Active Encounter for immunization ICD-9: V03.9 ICD-10: Z23 04/02/2017 Active Epistaxis ICD-9: 784.7 ICD-10: R04.0 10/22/2015 Active Tobacco use ICD-9: 305.1 ICD-10: Z72.0 04/21/2016 Active Cough ICD-9: 786.2 ICD-10: R05 12/22/2016 Active Other malaise ICD-9: 780.79 ICD-10: R53.81 12/22/2016 Active Shortness of breath ICD-9: 786.05 ICD-10: R06.02 12/22/2016 Active Encounter for general adult medical examination without abnormal findings ICD-9: V70.0 ICD-10: Z00.00 12/04/2016 Active Other ascites ICD-9: 789.59 ICD-10: R18.8 09/08/2016 Active Presence of other vascular implants and grafts ICD-9: V45.89 ICD-10: Z95.828 09/08/2016 Active Generalized abdominal pain ICD-9: 789.07 ICD-10: R10.84 08/19/2016 Active Right upper quadrant pain ICD-9: 789.01 ICD-10: R10.11 04/21/2016 Active Dysuria ICD-9: 788.1 ICD-10: R30.0 01/03/2016 Active Encounter for follow-up examination after completed treatment for conditions other than malignant neoplasm ICD-9: V67.9 ICD-10: Z09 11/15/2015 Active Carrier of viral hepatitis C ICD-9: V02.62 ICD-10: Z22.52 12/19/2014 Active Vitamin D deficiency, unspecified ICD-9: 268.9 ICD-10: E55.9 10/22/2015 Active Insomnia, unspecified ICD-9: 780.52 ICD-10: G47.00 05/14/2015 Active ESSENTIAL HYPERTENSION ICD-9: 401.9 03/21/2015 Active Esophageal varices Unknown 01/23/2015 Active DIABETES TYPE II ICD-9 : 250.00 12/19/2014 Active Tumor of liver ICD-9: 239.0 01/22/2015 Active Umbilical hernia ICD-9 : 553.1 01/22/2015 Active Urinary tract infection ICD-9: 599.0 01/22/2015 Active Diabetes Unknown 12/20/2014 Active Hyperlipidemia Unknown 12/20/2014 Active Hypertension Unknown 12/20/2014 Active BACKACHE ICD-9: 724.5 12/19/2014 Active CHRONIC PAIN SYNDROME ICD-9: 338.4 12/19/2014 Active ESOPHAGEAL REFLUX ICD- 9: 530.81 12/19/2014 Active 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 12/19/2014 Active Medications Medication Codes Instructions Start Date Stop Date Status Fill Instructions Pristiq 100 mg tablet,extended release RxNorm: 854033 1 Tablet(s) PO QPM 07/05/2018 06/29/2019 Active 10/13/2016 9:27:26 AM ipratropium-albuterol 0.5 mg-3 mg(2.5 mg base)/3 mL nebulization soln RxNorm: 1437782 1 inhale INH TID 07/05/2018 Active Basaglar KwikPen U-100 Insulin 100 unit/mL (3 mL) subcutaneous RxNorm: 7610361 15 Unit(s) SQ QPM 06/14/20182018 Active direction change EMLA 2.5 %-2.5 % topical cream RxNorm: 481560 1 Application TOP TID as needed pain at port site 05/12/2018 No Stop Date Active furosemide 20 mg tablet RxNorm: 616328 TAKE 1 TABLET BY MOUTH DAILY 04/26/2018 11/21/2018 Active Generic For:LASIX 20MG 04/26/2018 8:51:52 AM Xifaxan 550 mg tablet RxNorm: 785487 TAKE 2 TABLETS BY MOUTH TWICE DAILY 04/26/2018 11/21/2018 Active 04/26/2018 8:58:24 AM nicotine 7 mg/24 hr daily transdermal patch RxNorm: 128830 1 Patch TD daily Put on in the morning and take off at night 04/15/2018 04/28/2018 Inactive nicotine 14 mg/24 hr daily transdermal patch RxNorm: 711795 1 Patch TD daily x1 week -Put on in the morning and take off at night, then decrease to 7 mg patches x 1 week 04/15/2018 04/21/2018 Inactive nicotine 21 mg/24 hr daily transdermal patch RxNorm: 014020 1 Patch PO daily 04/15/2018 05/12/2018 Inactive Bydureon 2 mg/0.65 mL subcutaneous pen injector RxNorm: 3199154 2 Milligram(s) SQ QW 03/26/2018 08/22/2018 Active please give needles 31guage needles - deliver to filiberto at her work please ipratropium-albuterol 0.5 mg-3 mg(2.5 mg base)/3 mL nebulization soln RxNorm: 8114287 1 INH daily 03/15/20182017 Inactive Ventolin HFA 90 mcg/actuation aerosol inhaler RxNorm: 367009 INHALE 2 PUFFS BY MOUTH FOUR TIMES DAILY NEEDED 02/24/2018 09/21/2018 Active Basaglar KwikPen U-100 Insulin 100 unit/mL (3 mL) subcutaneous RxNorm: 4122755 10 Unit(s) SQ QPM 01/26/20182017 Inactive Basaglar KwikPen U-100 Insulin 100 unit/mL (3 mL) subcutaneous RxNorm: 6725566 10 Unit(s) SQ QPM 01/26/20182017 Inactive Lantus Solostar U-100 Insulin 100 unit/mL (3 mL) subcutaneous pen RxNorm: 482576 10 Unit(s) SQ daily 01/14/2018 Inactive ipratropium-albuterol 0.5 mg-3 mg(2.5 mg base)/3 mL nebulization soln RxNorm: 6886323 1 INH tid x 3 days, bid x 3 days and q2H prn 01/1403/14/2018 Inactive morphine ER 15 mg tablet,extended release RxNorm: 931370 1 Tablet(s) PO TID as needed 01/06/2018 02/04/2018 Inactive furosemide 20 mg tablet RxNorm: 791240 1 Tablet(s) PO daily 04/25/2018 Inactive Xifaxan 550 mg tablet RxNorm: 176824 2 Tablet(s) PO BID 201704/25/2018 Inactive potassium chloride ER 20 mEq tablet,extended release RxNorm: 013136 1 Tablet(s) BID 08/28/2017 08/22/2018 Active Exelon Patch 4.6 mg/24 hr transdermal RxNorm: 403947 1 TD daily 08/28/2017 08/22/2018 Active trazodone 50 mg tablet RxNorm: 963526 1 Tablet(s) PO QPM as needed insomnia TAKE 1 TABLET BY MOUTH ONCE DAILY NEEDED 08/28/2017 08/22/2018 Active Generic For: DESYREL 50 MG TABLET 11/12/2016 9:00:24 AM Remeron 15 mg tablet RxNorm: 058523 1 Tablet(s) PO QPM TAKE 1 TABLET BY MOUTH EVERY NIGHT AT BEDTIME 08/28/20172018 Active Generic For:REMERON 15MG 11/12 9:00:28 AM Protonix 20 mg tablet,delayed release RxNorm: 738417 1 Tablet(s) PO daily 08/28/2017 08/22/2018 Active Pristiq 50 mg tablet,extended release RxNorm: 225499 1 Tablet(s) PO daily 08/28/2017 07/04/2018 Inactive 10/13/2016 9:27:26 AM Ventolin HFA 90 mcg/actuation aerosol inhaler RxNorm: 230463 2 INHALE 2 PUFFS BY MOUTH FOUR TIMES DAILY NEEDED 07/29/2017 02/23/2018 Inactive morphine ER 15 mg tablet,extended release RxNorm: 291734 1 Tablet(s) PO TID as needed 07/29/2017 08/27/2017 Inactive Ventolin HFA 90 mcg/actuation aerosol inhaler RxNorm: 070025 INHALE 2 PUFFS BY MOUTH FOUR TIMES DAILY NEEDED 07/10/2017 07/28/2017 Inactive Phenergan-Codeine 6.25 mg-10 mg/5 mL syrup RxNorm: 071852 5 Milliliter(s) PO Q6 as needed cough 07/10/2017 07/23/2017 Inactive albuterol sulfate 90 mcg/actuation breath activated powder inhaler RxNorm: 9051116 2 Puff(s) INH QID as needed dyspnea 06/02/2017 12/27/2017 Inactive morphine ER 15 mg tablet,extended release RxNorm: 991333 1 Tablet(s) PO TID as needed 06/02/2017 07/01/2017 Inactive albuterol sulfate 90 mcg/actuation breath activated powder inhaler RxNorm: 9723806 2 Puff(s) INH QID as needed dyspnea 05/28/2017 06/01/2017 Inactive Bydureon 2 mg/0.65 mL subcutaneous pen injector RxNorm: 8129939 2 Milligram(s) SQ QW 04/02/2017 08/29/2017 Inactive please give needles 31guage needles - deliver to filiberto at her work please lactulose 20 gram/30 mL oral solution RxNorm: 321817 2 Tablespoon(s) PO QID 03/05/2017 09/28/2017 Inactive furosemide 20 mg tablet RxNorm: 710235 1 Tablet(s) PO daily 09/28/2017 Inactive lactulose 10 gram/15 mL oral solution RxNorm: 524604 30 Milliliter(s) PO BID 02/05/2017 No Stop Date Active potassium chloride ER 20 mEq tablet,extended release RxNorm: 384203 1 Tablet(s) BID 02/05/2017 08/27/2017 Inactive Remeron 15 mg tablet RxNorm: 150313 1 Tablet(s) PO QPM TAKE 1 TABLET BY MOUTH EVERY NIGHT AT BEDTIME 02/05/20172017 Inactive Generic For:REMERON 15MG 9:00:28 AM Protonix 20 mg tablet,delayed release RxNorm: 488512 1 Tablet(s) PO daily 02/05/2017 08/27/2017 Inactive trazodone 50 mg tablet RxNorm: 692818 1 Tablet(s) PO QPM as needed insomnia TAKE 1 TABLET BY MOUTH ONCE DAILY NEEDED 02/05/2017 08/27/2017 Inactive Generic For: DESYREL 50 MG TABLET 11/12/2016 9:00:24 AM morphine ER 15 mg tablet,extended release RxNorm: 598478 1 Tablet(s) PO TID as needed 02/05/2017 03/06/2017 Inactive Lantus Solostar 100 unit/mL (3 mL) subcutaneous insulin pen RxNorm: 410053 15 Unit(s) SQ daily 02/05/2017 04/01/2017 Inactive Xifaxan 550 mg tablet RxNorm: 869556 2 Tablet(s) PO BID 201609/02/2017 Inactive Pristiq 50 mg tablet,extended release RxNorm: 293219 1 Tablet(s) PO daily 02/05/2017 08/27/2017 Inactive 10/13/2016 9:27:26 AM Exelon Patch 4.6 mg/24 hr transdermal RxNorm: 966326 1 TD daily 02/05/2017 08/27/2017 Inactive furosemide 20 mg tablet RxNorm: 599025 1 Tablet(s) PO daily 03/04/2017 Inactive Vitamin D3 1,000 unit tablet RxNorm: 543159 2 Tablet(s) PO QHS 01/22/2017 No Stop Date Active furosemide 20 mg tablet RxNorm: 598162 Tablet(s) PO 01/22/2017 02/04/2017 Inactive Xifaxan 550 mg tablet RxNorm: 642532 2 Tablet(s) PO BID 201602/04/2017 Inactive potassium chloride ER 20 mEq tablet,extended release RxNorm: 146480 2 Tablet(s) BID 1 Tablet(s) PO daily 01/22/20172016 Inactive Lasix 40 mg tablet RxNorm: 403947 TAKE ONE TABLET BY MOUTH IN THE MORNING AND ONE-HALF TABLET IN THE AFTERNOON 12/25/2016 01/21/2017 Inactive Ativan 1 mg tablet RxNorm: 656729 1 Tablet(s) PO Q6 as needed anxiety 12/25/2016 01/21/2017 Inactive lactulose 10 gram/15 mL oral solution RxNorm: 314237 15 Milliliter(s) PO BID 12/25/2016 02/04/2017 Inactive lactulose 20 gram/30 mL oral solution RxNorm: 773031 2 Tablespoon(s) PO QID 12/24/2016 12/24/2016 Inactive nicotine 7 mg/24 hr daily transdermal patch RxNorm: 410924 1 Patch TD daily Put on in the morning and take off at night 12/24/2016 01/21/2017 Inactive cefdinir 300 mg capsule RxNorm: 806115 1 Capsule(s) PO BID 12/31/2016 Inactive Zithromax 250 mg tablet RxNorm: 004128 1 Tablet(s) PO daily 12/26/2016 Inactive prednisone 20 mg tablet RxNorm: 226953 2 Tablet(s) PO QAM 12/2212/24/2016 Inactive Ventolin HFA 90 mcg/actuation aerosol inhaler RxNorm: 777040 2 inhale NASAL QID as needed INHALE 2 PUFFS BY MOUTH FOUR TIMES DAILY NEEDED 12/12/2016 07/09/2017 Inactive 04/07/2016 1:44:46 PM spironolactone 50 mg tablet RxNorm: 261649 TAKE 1 TABLET BY MOUTH ONCE DAILY 11/14/2016 11/08/2017 Inactive Generic For:ALDACTONE 50MG 11/12/2016 9:00:19 AM trazodone 50 mg tablet RxNorm: 687683 TAKE 1 TABLET BY MOUTH ONCE DAILY NEEDED 11/12/2016 02/04/2017 Inactive Generic For:DESYREL 50 MG TABLET 11/12/2016 9:00: 24 AM Remeron 15 mg tablet RxNorm: 365353 TAKE 1 TABLET BY MOUTH EVERY NIGHT AT BEDTIME 11/12/2016 01/10/2017 Inactive Generic For:REMERON 15MG 11/12/2016 9:00:28 AM morphine ER 15 mg tablet,extended release RxNorm: 786655 1 Tablet(s) PO TID 10/22/2016 11/20/2016 Inactive Lasix 40 mg tablet RxNorm: 144720 TAKE ONE TABLET BY MOUTH DAILY 10/13/2016 12/24/2016 Inactive Generic For:LASIX 40MG 10/13/2016 9:27:30 AM Pristiq 50 mg tablet,extended release RxNorm: 312093 TAKE 1 TABLET BY MOUTH ONCE DAILY 10/13/2016 02/04/2017 Inactive 10/13/2016 9:27:26 AM nicotine 7 mg/24 hr daily transdermal patch RxNorm: 686243 1 Patch TD daily Put on in the morning and take off at night 10/03/2016 10/23/2016 Inactive nicotine 7 mg/24 hr daily transdermal patch RxNorm: 615317 1 Patch TD daily Put on in the morning and take off at night 09/23/2016 10/02/2016 Inactive nicotine 7 mg/24 hr daily transdermal patch RxNorm: 447335 1 Patch TD daily Put on in the morning and take off at night 09/18/2016 09/22/2016 Inactive glimepiride 4 mg tablet RxNorm: 711900 TAKE TWO TABLETS BY MOUTH DAILY IN THE MORNING 09/15/2016 01/21/2017 Inactive Generic For:*AMARYL 4MG 09/13/2016 9:08:43 AM Remeron 15 mg tablet RxNorm: 957414 1 Tablet(s) PO QHS 201611/11/2016 Inactive deliver to patient's sister FILIBERTO nicotine 7 mg/24 hr daily transdermal patch RxNorm: 038661 1 Patch TD daily Put on in the morning and take off at night 08/22/2016 08/28/2016 Inactive nicotine 14 mg/24 hr daily transdermal patch RxNorm: 669747 1 Patch TD daily x1 week -Put on in the morning and take off at night, then decrease to 7 mg patches x 1 week 08/22/2016 08/28/2016 Inactive nicotine 7 mg/24 hr daily transdermal patch RxNorm: 191245 1 Patch TD daily Put on in the morning and take off at night 08/21/2016 08/21/2016 Inactive nicotine 7 mg/24 hr daily transdermal patch RxNorm: 748899 1 Patch TD daily Put on in the morning and take off at night 08/21/2016 08/20/2016 Inactive nicotine 14 mg/24 hr daily transdermal patch RxNorm: 741400 1 Patch TD daily -Put on in the morning and take off at night, then decrease to 7 mg patches x 1 week 08/21/2016 08/20/2016 Inactive nicotine 14 mg/24 hr daily transdermal patch RxNorm: 948948 1 Patch TD daily x1 week -Put on in the morning and take off at night, then decrease to 7 mg patches x 1 week 08/21/2016 08/21/2016 Inactive potassium chloride ER 20 mEq tablet,extended release RxNorm: 289987 Tablet(s) 1 Tablet(s) PO daily 08/14/2016 01/21/2017 Inactive Remeron 15 mg tablet RxNorm: 058733 1 Tablet(s) PO QHS 201509/14/2016 Inactive deliver to patient's sister FILIBERTO omeprazole 20 mg capsule,delayed release RxNorm: 473415 TAKE 1 CAPSULE BY MOUTH TWICE DAILY 07/15/2016 01/21/2017 Inactive Generic For:PRILOSEC 20MG 07/15/2016 8: 59:16 AM trazodone 50 mg tablet RxNorm: 717293 Tablet(s) Tablet(s) TAKE ONE TABLET BY MOUTH DAILY NEEDED 07/15/20162016 Inactive Pristiq 50 mg tablet,extended release RxNorm: 261926 TAKE 1 TABLET BY MOUTH ONCE DAILY 06/16/2016 10/12/2016 Inactive 06/16/2016 9:02:33 AM Lasix 40 mg tablet RxNorm: 671499 TAKE ONE TABLET BY MOUTH DAILY 06/16/2016 10/12/2016 Inactive Generic For:LASIX 40MG 06/16/2016 9:02:29 AM Ventolin HFA 90 mcg/actuation aerosol inhaler RxNorm: 598996 2 inhale NASAL QID as needed INHALE 2 PUFFS BY MOUTH FOUR TIMES DAILY NEEDED 04/22/2016 11/17/2016 Inactive 04/07/2016 1:44:46 PM mupirocin 2 % topical ointment RxNorm: 958659 1 Application TOP BID 04/22/2016 05/01/2016 Inactive apply in nose twice daily Ventolin HFA 90 mcg/actuation aerosol inhaler RxNorm: 998411 INHALE 2 PUFFS BY MOUTH FOUR TIMES DAILY NEEDED 04/07/2016 04/21/2016 Inactive 04/07/2016 1:44:46 PM trazodone 50 mg tablet RxNorm: 258276 Tablet(s) Tablet(s) TAKE ONE TABLET BY MOUTH DAILY NEEDED 03/18/20162015 Inactive potassium chloride ER 20 mEq tablet,extended release RxNorm: 212466 1 Tablet(s) PO daily 03/17/2016 08/13/2016 Inactive Pristiq 50 mg tablet,extended release RxNorm: 856971 1 Tablet(s) PO daily 02/18/2016 06/15/2016 Inactive Lasix 40 mg tablet RxNorm: 450138 TAKE ONE TABLET BY MOUTH DAILY 02/18/2016 06/15/2016 Inactive Generic For:LASIX 40MG 02/16/2016 9:03:51 AM glimepiride 4 mg tablet RxNorm: 422858 TAKE TWO TABLETS BY MOUTH DAILY IN THE MORNING 02/18/2016 09/14/2016 Inactive Generic For:*AMARYL 4MG 02/16/2016 9:03:44 AM Ventolin HFA 90 mcg/actuation aerosol inhaler RxNorm: 740117 INHALE 2 PUFFS BY MOUTH FOUR TIMES DAILY NEEDED 02/18/2016 04/06/2016 Inactive 02/16/2016 9:04:47 AM trazodone 50 mg tablet RxNorm: 268973 Tablet(s) TAKE ONE TABLET BY MOUTH DAILY NEEDED 01/17/2016 03/16/2016 Inactive Generic For:DESYREL 50 MG TABLET 08/17/2015 9:45:00 AM ciprofloxacin 500 mg tablet RxNorm: 207712 1 Tablet(s) PO BID 01/04/2016 01/10/2016 Inactive Ventolin HFA 90 mcg/actuation aerosol inhaler RxNorm: 431635 INHALE 2 PUFFS BY MOUTH FOUR TIMES DAILY NEEDED 01/02/2016 02/17/2016 Inactive 01/02/2016 1:45:42 PM omeprazole 20 mg capsule,delayed release RxNorm: 621040 TAKE 1 CAPSULE BY MOUTH TWICE DAILY 12/18/2015 07/14/2016 Inactive Generic For:PRILOSEC 20MG 12/18/2015 10 :05:45 AM Ventolin HFA 90 mcg/actuation aerosol inhaler RxNorm: 475306 2 INH QID as needed 11/19/2015 01/01/2016 Inactive dc PROAIR trazodone 100 mg tablet RxNorm: 001181 1 Tablet(s) PO QHS 11/1512/15/2015 Inactive spironolactone 50 mg tablet RxNorm: 815911 TAKE 1 TABLET BY MOUTH ONCE DAILY 10/24/2015 10/17/2016 Inactive Generic For:ALDACTONE 50MG 10/23/2015 11:26:43 AM mupirocin 2 % topical ointment RxNorm: 225391 1 Application TOP QID 10/23/2015 10/29/2015 Inactive Lasix 40 mg tablet RxNorm: 021592 TAKE ONE TABLET BY MOUTH DAILY 10/22/2015 02/17/2016 Inactive Generic For:LASIX 40MG 10/22/2015 4:29:14 PM10/19/2015 9:43:00 AM Pristiq 50 mg tablet,extended release RxNorm: 869069 1 Tablet(s) PO daily 10/19/2015 02/15/2016 Inactive potassium chloride ER 20 mEq tablet,extended release RxNorm: 703063 1 Tablet(s) PO daily 10/19/2015 03/16/2016 Inactive trazodone 50 mg tablet RxNorm: 918911 Tablet(s) TAKE ONE TABLET BY MOUTH DAILY NEEDED 10/19/2015 12/17/2015 Inactive Generic For:DESYREL 50 MG TABLET 08/17/2015 9:45:00 AM Ventolin HFA 90 mcg/actuation aerosol inhaler RxNorm: 233502 2 INH QID as needed 10/08/2015 11/18/2015 Inactive dc PROAIR prednisone 20 mg tablet RxNorm: 213489 3 Tablet(s) PO QAM 09/0509/07/2015 Inactive trazodone 50 mg tablet RxNorm: 474682 TAKE ONE TABLET BY MOUTH DAILY NEEDED 08/17/2015 10/15/2015 Inactive Generic For:DESYREL 50 MG TABLET 08/17/2015 9:45: 00 AM morphine ER 15 mg tablet,extended release RxNorm: 000000 1 Tablet(s) PO TID 08/07/2015 09/05/2015 Inactive glimepiride 4 mg tablet RxNorm: 732888 TAKE TWO TABLETS BY MOUTH DAILY IN THE MORNING 07/23/2015 02/17/2016 Inactive Generic For:*AMARYL 4MG 07/23/2015 10:52: 06 AM potassium chloride ER 20 mEq tablet,extended release RxNorm: 715057 1 Tablet(s) PO daily 06/29/2015 06/28/2015 Inactive potassium chloride ER 20 mEq tablet,extended release RxNorm: 896420 1 Tablet(s) PO daily 06/29/2015 10/18/2015 Inactive Lasix 40 mg tablet RxNorm: 484588 1 Tablet(s) PO daily 201410/21/2015 Inactive trazodone 50 mg tablet RxNorm: 066271 1 Tablet(s) PO daily as needed 06/22/2015 06/21/2015 Inactive Pristiq 50 mg tablet,extended release RxNorm: 575368 1 Tablet(s) PO daily 06/22/2015 10/18/2015 Inactive trazodone 50 mg tablet RxNorm: 043006 1 Tablet(s) PO daily as needed 06/22/2015 08/16/2015 Inactive ProAir HFA 90 mcg/actuation aerosol inhaler RxNorm: 7004093 2 Puff(s) INH QID as needed dyspnea 06/12/2015 10/07/2015 Inactive omeprazole 20 mg capsule,delayed release RxNorm: 475740 1 Capsule(s) PO BID 05/31/2015 12/17/2015 Inactive DC protonix pantoprazole 40 mg tablet,delayed release RxNorm: 617474 1 Tablet(s) PO daily 05/25/2015 05/30/2015 Inactive Pristiq 50 mg tablet,extended release RxNorm: 396861 1 Tablet(s) PO daily 03/23/2015 06/20/2015 Inactive Lasix 40 mg tablet RxNorm: 975051 1 Tablet(s) PO daily 201405/14/2015 Inactive morphine ER 15 mg tablet,extended release RxNorm: 390634 1 Tablet(s) PO TID 03/06/2015 04/04/2015 Inactive Klor-Con M20 mEq tablet,extended release RxNorm: 5824048 1 Tablet(s) PO daily 02/22/2015 05/14/2015 Inactive ProAir HFA 90 mcg/actuation aerosol inhaler RxNorm: 4109594 2 Puff(s) INH QID as needed dyspnea 02/15/2015 06/11/2015 Inactive albuterol sulfate 90 mcg/actuation breath activated powder inhaler RxNorm: 2346334 2 Puff(s) INH QID as needed dyspnea 02/15/2015 09/10/2015 Inactive ProAir HFA 90 mcg/actuation aerosol inhaler RxNorm: 4726281 2 Puff(s) INH QID as needed dyspnea 02/15/2015 02/14/2015 Inactive morphine ER 15 mg tablet,extended release RxNorm: 345558 1 Tablet(s) PO TID 01/25/2015 02/23/2015 Inactive morphine 15 mg capsule RxNorm: 738167 1 Capsule(s) PO TID 01/2301/24/2015 Inactive morphine 15 mg capsule RxNorm: 073561 1 Capsule(s) PO TID 01/0901/22/2015 Inactive omeprazole 40 mg capsule,delayed release RxNorm: 525369 1 Capsule(s) PO daily 12/28/2014 12/27/2014 Inactive DC protonix omeprazole 40 mg capsule,delayed release RxNorm: 574573 1 Capsule(s) PO daily 12/28/2014 05/30/2015 Inactive DC protonix glimepiride 4 mg tablet RxNorm: 200256 2 Tablet(s) PO QAM 12/2707/22/2015 Inactive nicotine 21 mg/24 hr daily transdermal patch RxNorm: 449473 1 Patch PO daily 12/26/2014 01/22/2015 Inactive morphine 15 mg capsule RxNorm: 581095 1 Capsule(s) PO TID 12/2001/08/2015 Inactive Pristiq 50 mg tablet,extended release RxNorm: 283189 1 Tablet(s) PO daily 12/20/2014 01/18/2015 Inactive pantoprazole 40 mg tablet,delayed release RxNorm: 426524 1 Tablet(s) PO daily 12/20/2014 12/27/2014 Inactive magnesium oxide 400 mg tablet RxNorm: 179105 1 Tablet(s) PO daily No Start Date Active melatonin 3 mg tablet RxNorm: 387155 1 Tablet(s) PO daily No Start Date Active Novolin R 100 unit/mL injection solution RxNorm: 694953 ssi: 4u 150-200, 5r657-158 , 8u 251-300, 10u 301-350, 12u 351 Unit(s) Inj No Start Date Active 12u 351-400 over 351 give 12 and call ipratropium-albuterol 0.5 mg-3 mg(2.5 mg base)/3 mL nebulization soln RxNorm: 3850170 1 INH q2H prn No Start Date 01/2018 Inactive EMLA 2.5 %-2.5 % topical cream RxNorm: 263345 1 Application TOP TID as needed pain at port site No Start Date 2017 Inactive glimepiride 4 mg tablet RxNorm: 222890 2 Tablet(s) PO QAM No Start Date 12/26/2014 Inactive Exelon Patch 4.6 mg/24 hr transdermal RxNorm: 228583 1 TD daily No Start Date 02/04/2017 Inactive spironolactone 50 mg tablet RxNorm: 740636 1 Tablet(s) PO daily No Start Date 05/14/2015 Inactive Lasix 40 mg tablet RxNorm: 376297 1 Tablet(s) PO daily No Start Date 03/22/2015 Inactive Protonix 20 mg tablet,delayed release RxNorm: 243377 1 Tablet(s) PO daily No Start Date 02/04/2017 Inactive Ventolin HFA 90 mcg/actuation aerosol inhaler RxNorm: 930785 2 INH QID as needed No Start Date 10/07/2015 Inactive dc PROAIR lactulose 20 gram/30 mL oral solution RxNorm: 001450 2 Tablespoon(s) PO QID No Start Date 12/23/2016 Inactive Xifaxan 550 mg tablet RxNorm: 090342 2 Tablet(s) PO daily No Start Date 01/21/2017 Inactive Klor-Con M20 mEq tablet,extended release RxNorm: 085927 1 Tablet(s) PO daily No Start Date 02/21/2015 Inactive Vitamin D3 1,000 unit tablet RxNorm: 909926 1 Tablet(s) PO TID No Start Date 01/21/2017 Inactive Trazadone Oral RxNorm : oral No Start Date 03/18/2016 Inactive Levemir 100 unit/mL subcutaneous solution RxNorm: 677294 10 Unit(s) SQ daily No Start Date 02/04/2017 Inactive melatonin 10 mg RxNorm : 1 PO daily No Start Date 01/21/2017 Inactive Medication Administered No Medication Administered data Immunizations Vaccine Codes Date Status Influenza CVX: 141 06/10/2018 completed Influenza CVX: 141 05/28/2017 completed Pneumococcal (Adult) CVX: 133 04/02/2017 completed Influenza CVX: 141 04/22/2016 completed Pneumococcal CVX: 33 10/31/2015 completed Influenza CVX: 141 05/15/2015 completed Influenza CVX: 141 02/07/2014 completed Diphtheria, Tetanus, Pertussis CVX: 20 completed Pneumococcal CVX: 33 07/10/2008 completed Assessments Condition Codes Effective Dates Essential (primary) hypertension ICD-10: I10 ICD-9: 401.1 07/05/2018 Type 2 diabetes mellitus with hyperglycemia ICD-10: E11.65 ICD-9: 250.02 07/05/2018 Chronic pain syndrome ICD-10: G89.4 ICD-9: 338.4 07/05/2018 Insomnia due to medical condition ICD-10: G47.01 ICD-9: 327.01 07/05/2018 Muscle weakness (generalized) ICD-10: M62.81 ICD-9: 728.87 03/18/2018 Unsteadiness on feet ICD-10: R26.81 ICD-9: 781.2 03/18/2018 Chronic obstructive pulmonary disease, unspecified ICD-10: J44.9 ICD-9: 496 01/26/2018 Encounter for general adult medical examination with abnormal findings ICD-10: Z00.01 ICD-9: V70.0 01/26/2018 Type 2 diabetes mellitus without complications ICD-10: E11.9 ICD-9: 250.00 01/06/2018 Other specified diseases of liver ICD-10: K76.89 ICD-9: 573.8 09/28/2017 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 ICD-9: 239.0 07/29/2017 Essential (primary) hypertension ICD-10: I10 ICD-9: 401.9 05/28/2017 Encounter for immunization ICD-10: Z23 ICD-9: V04.81 05/28/2017 Epistaxis ICD-10: R04.0 ICD-9: 784.7 04/02/2017 Encounter for immunization ICD-10: Z23 ICD-9: V03.9 04/02/2017 Tobacco use ICD-10: Z72.0 ICD-9: 305.1 04/02/2017 Cough ICD-10: R05 ICD-9: 786.2 12/22/2016 Shortness of breath ICD-10: R06.02 ICD-9: 786.05 12/22/2016 Other malaise ICD-10: R53.81 ICD-9: 780.79 12/22/2016 Encounter for general adult medical examination without abnormal findings ICD-10: Z00.00 ICD-9: V70.0 12/04/2016 Other ascites ICD-10: R18.8 ICD-9: 789.59 09/08/2016 Presence of other vascular implants and grafts ICD-10: Z95.828 ICD-9: V45.89 09/08/2016 Generalized abdominal pain ICD-10: R10.84 ICD-9: 789.07 08/19/2016 Right upper quadrant pain ICD-10: R10.11 ICD-9: 789.01 04/22/2016 Dysuria ICD-10: R30.0 ICD-9: 788.1 01/04/2016 Encounter for follow-up examination after completed treatment for conditions other than malignant neoplasm ICD-10: Z09 ICD-9: V67.9 11/16/2015 Carrier of viral hepatitis C ICD-10: Z22.52 ICD-9: V02.62 10/23/2015 Vitamin D deficiency, unspecified ICD-10: E55.9 ICD-9: 268.9 10/23/2015 Insomnia, unspecified ICD-10: G47.00 ICD-9: 780.52 05/15/2015 ESSENTIAL HYPERTENSION ICD-9: 401.9 03/22 DIABETES TYPE II ICD-9: 250.00 2014 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 2014 CHRONIC PAIN SYNDROME ICD-9: 338.4 2014 Umbilical hernia ICD-9: 553.1 01/23/2015 Urinary tract infection ICD-9: 599.0 Tumor of liver ICD-9: 239.0 01/23/2015 ESOPHAGEAL REFLUX ICD-9: 530.81 2014 BACKACHE ICD-9: 724.5 12/20/2014 Reason For Visit Reason For Visit Effective Dates Notes diabetes mellitus 07/05/2018 diabetes mellitus 03/18/2018 Annual Medicare Wellness Exam 01/26/2018 diabetes mellitus 01/06/2018 diabetes mellitus 09/28/2017 diabetes mellitus 07/29/2017 diabetes mellitus 05/28/2017 diabetes mellitus 04/02/2017 diabetes mellitus 03/04/2017 Hospital Follow Up 02/05/2017 shortness of breath 12/22/2016 Hospital Follow Up 09/08/2016 cough 08/19/2016 diabetes mellitus 07/21/2016 diabetes mellitus 04/22/2016 diabetes mellitus 01/22/2016 urinary frequency 01/04/2016 Hospital Follow Up 11/16/2015 diabetes mellitus 10/23/2015 diabetes mellitus 2015 diabetes mellitus 05/15/2015 back pain 03/22/2015 back pain 01/23/2015 back pain 12/20/2014 Results Observation Observation Code Item Item Code Result Date Metabolic Ord15 NA 138 mEq/L 06/02/2018 Metabolic Ord15 K 3.9 mEq/L 06/02/2018 Metabolic Ord15 CL 104 mEq/L 06/02/2018 Metabolic Ord15 CO2 28.0 mEq/L 06/02/2018 Metabolic Ord15 GLUCOSE 180 mg/dL 06/02/2018 Metabolic Ord15 BUN 10 mg/dL 06/02/2018 Metabolic Ord15 Creat 0.5 mg/dL 06/02/2018 Metabolic Ord15 B/C Ratio 18.5 Ratio 06/02/2018 Metabolic Ord15 eGFR 163 ml/min/1.73m2 06/02/2018 Metabolic Ord15 Osmo 279 mOsmo 06/02/2018 Metabolic Ord15 ANION GAP 10 06/02/2018 Metabolic Ord15 CALCIUM 8.2 mg/dL 06/02/2018 %Hba1C Gmp194 % HbA1c 67629-3 8.2 % 01/06/2018 %Hba1C Jae344 Gluc Ave 189 mg/dL 01/06/2018 Cbc With Differential Ord2 WBC 3.49 K/ul 01/06/2018 Cbc With Differential Ord2 RBC 4.10 M/ul 01/06/2018 Cbc With Differential Ord2 HGB 11.4 g/dl 01/06/2018 Cbc With Differential Ord2 HCT 34.8 % 01/06/2018 Cbc With Differential Ord2 Neut% 63.6 % 01/06/2018 Cbc With Differential Ord2 MCV 84.9 fl 01/06/2018 Cbc With Differential Ord2 Lymph% 20.9 % 01/06/2018 Cbc With Differential Ord2 MCH 27.8 pg 01/06/2018 Cbc With Differential Ord2 [place]% 11.2 % 01/06/2018 Cbc With Differential Ord2 Eos% 4.0 % 01/06/2018 Cbc With Differential Ord2 MCHC 32.8 pg 01/06/2018 Cbc With Differential Ord2 Baso% 0.3 % 01/06/2018 Cbc With Differential Ord2 PLT 48 K/ul 01/06/2018 Cbc With Differential Ord2 RDW 17.1 % 01/06/2018 Cbc With Differential Ord2 Neut ABS# 2.22 K/ul 01/06/2018 Cbc With Differential Ord2 Lymph ABS# 0.73 K/ul 01/06/2018 Cbc With Differential Ord2 [place] ABS# 0.4 K/ul 01/06/2018 Cbc With Differential Ord2 Eos ABS# 0.1 K/ul 01/06/2018 Cbc With Differential Ord2 Baso ABS# 0.0 K/ul 01/06/2018 Pt [id number] PT 16.1 seconds 01/06/2018 Pt [id number] INR 1.3 01/06/2018 Pt Zno1778 Low Intensity - 1.5-2.0 01/06/2018 Pt Abk0443 Mod intensity - 2.0-3.0 01/06/2018 Pt Mfz9742 Hi intensity - 3.0-4.0 01/06/2018 Carbohydrate Antigen 19-9 096806 CA 19-9 130 U/mL 12/18/2017 Afp Serum Tumor Marker [id number] ALPHA- FETOPROTEIN TM 2.1 ng/mL 12/01/2017 Comp Metabolic Arr731 NA 134 mEq/L 11/30/2017 Comp Metabolic Xqw871 K 3.7 mEq/L 11/30/2017 Comp Metabolic Iyc424 CL 102 mEq/L 11/30/2017 Comp Metabolic Fzi854 CO2 26.0 mEq/L 11/30/2017 Comp Metabolic Pcr867 ANION GAP 10 11/30/2017 Comp Metabolic Tox613 GLUCOSE 295 mg/dL 11/30/2017 Comp Metabolic Nje051 Creat 0.5 mg/dL 11/30/2017 Comp Metabolic Fjk031 eGFR 178 ml/min/1.73m2 11/30/2017 Comp Metabolic Ank224 BUN 11 mg/dL 11/30/2017 Comp Metabolic Fki411 B/C Ratio 22.0 Ratio 11/30/2017 Comp Metabolic Ati953 CALCIUM 7.9 mg/dL 11/30/2017 Comp Metabolic Bfk070 ALK PHOS 167 U/L 11/30/2017 Comp Metabolic Nxl028 AST(SGOT) 52 U/L 11/30/2017 Comp Metabolic Egk577 ALT(SGPT) 31 U/L 11/30/2017 Comp Metabolic Iep329 BILI T 1.5 mg/dL 11/30/2017 Comp Metabolic Ats197 ALBUMIN 2.8 g/dL 11/30/2017 Comp Metabolic Ljk747 TPRO 6.2 g/dL 11/30/2017 Comp Metabolic Hjj529 GLOB 3.4 g/dL 11/30/2017 Comp Metabolic Roq372 A/G Ratio 0.8 Ratio 11/30/2017 Comp Metabolic Rrl955 Osmo 279 mOsmo 11/30/2017 Pt Ieb9731 PT 16.5 seconds 11/30/2017 Pt Apl1623 INR 1.4 11/30/2017 Pt Jpg7892 Low Intensity - 1.5-2.0 11/30/2017 Pt Ckf0359 Mod intensity - 2.0-3.0 11/30/2017 Pt Ydi8465 Hi intensity - 3.0-4.0 11/30/2017 Cbc With Differential Ord2 WBC 3.49 K/ul 11/30/2017 Cbc With Differential Ord2 RBC 3.88 M/ul 11/30/2017 Cbc With Differential Ord2 HGB 10.8 g/dl 11/30/2017 Cbc With Differential Ord2 Neut% 61.8 % 11/30/2017 Cbc With Differential Ord2 HCT 33.4 % 11/30/2017 Cbc With Differential Ord2 MCV 86.1 fl 11/30/2017 Cbc With Differential Ord2 Lymph% 22.1 % 11/30/2017 Cbc With Differential Ord2 MCH 27.8 pg 11/30/2017 Cbc With Differential Ord2 [place]% 11.2 % 11/30/2017 Cbc With Differential Ord2 Eos% 4.9 % 11/30/2017 Cbc With Differential Ord2 MCHC 32.3 pg 11/30/2017 Cbc With Differential Ord2 Baso% 0.0 % 11/30/2017 Cbc With Differential Ord2 PLT 46 K/ul 11/30/2017 Cbc With Differential Ord2 Neut ABS# 2.16 K/ul 11/30/2017 Cbc With Differential Ord2 RDW 17.9 % 11/30/2017 Cbc With Differential Ord2 Lymph ABS# 0.77 K/ul 11/30/2017 Cbc With Differential Ord2 [place] ABS# 0.4 K/ul 11/30/2017 Cbc With Differential Ord2 Eos ABS# 0.2 K/ul 11/30/2017 Cbc With Differential Ord2 Baso ABS# 0.0 K/ul 11/30/2017 Afp Serum Tumor Marker [id number] ALPHA- FETOPROTEIN TM 1.7 ng/mL 09/23/2017 Bili D Ord93 BILI D 0.5 mg/dL 09/22/2017 Bili D Ord93 BILI I 1.0 mg/dL 09/22/2017 Cbc With Differential Ord2 WBC 5.09 K/ul 09/22/2017 Cbc With Differential Ord2 RBC 4.24 M/ul 09/22/2017 Cbc With Differential Ord2 HGB 11.6 g/dl 09/22/2017 Cbc With Differential Ord2 HCT 35.3 % 09/22/2017 Cbc With Differential Ord2 Neut% 67.4 % 09/22/2017 Cbc With Differential Ord2 Lymph% 19.4 % 09/22/2017 Cbc With Differential Ord2 MCV 83.3 fl 09/22/2017 Cbc With Differential Ord2 MCH 27.4 pg 09/22/2017 Cbc With Differential Ord2 [place]% 10.0 % 09/22/2017 Cbc With Differential Ord2 Eos% 2.8 % 09/22/2017 Cbc With Differential Ord2 MCHC 32.9 pg 09/22/2017 Cbc With Differential Ord2 PLT 54 K/ul 09/22/2017 Cbc With Differential Ord2 Baso% 0.4 % 09/22/2017 Cbc With Differential Ord2 RDW 16.4 % 09/22/2017 Cbc With Differential Ord2 Neut ABS# 3.43 K/ul 09/22/2017 Cbc With Differential Ord2 Lymph ABS# 0.99 K/ul 09/22/2017 Cbc With Differential Ord2 [place] ABS# 0.5 K/ul 09/22/2017 Cbc With Differential Ord2 Eos ABS# 0.1 K/ul 09/22/2017 Cbc With Differential Ord2 Baso ABS# 0.0 K/ul 09/22/2017 Pt [id number] PT 15.9 seconds 09/22/2017 Pt Tvv6616 INR 1.3 09/22/2017 Pt Dul0316 Low Intensity - 1.5-2.0 09/22/2017 Pt Jre0535 Mod intensity - 2.0-3.0 09/22/2017 Pt Dez2594 Hi intensity - 3.0-4.0 09/22/2017 Comp Metabolic Pvc299 NA 138 mEq/L 09/22/2017 Comp Metabolic Gkc257 K 3.6 mEq/L 09/22/2017 Comp Metabolic Nbl263 CL 104 mEq/L 09/22/2017 Comp Metabolic Bmd743 CO2 28.0 mEq/L 09/22/2017 Comp Metabolic Raz673 ANION GAP 10 09/22/2017 Comp Metabolic Zoz449 GLUCOSE 295 mg/dL 09/22/2017 Comp Metabolic Tcq926 Creat 0.5 mg/dL 09/22/2017 Comp Metabolic Hzk347 eGFR 174 ml/min/1.73m2 09/22/2017 Comp Metabolic Ail982 BUN 10 mg/dL 09/22/2017 Comp Metabolic Hxz887 B/C Ratio 19.6 Ratio 09/22/2017 Comp Metabolic Mfy778 CALCIUM 8.9 mg/dL 09/22/2017 Comp Metabolic Gyf076 ALK PHOS 161 U/L 09/22/2017 Comp Metabolic Ehn654 AST(SGOT) 41 U/L 09/22/2017 Comp Metabolic Kaq722 ALT(SGPT) 27 U/L 09/22/2017 Comp Metabolic Nrl658 BILI T 1.5 mg/dL 09/22/2017 Comp Metabolic Ijm085 ALBUMIN 3.2 g/dL 09/22/2017 Comp Metabolic Qgp641 TPRO 6.4 g/dL 09/22/2017 Comp Metabolic Rqp476 GLOB 3.2 g/dL 09/22/2017 Comp Metabolic Lam135 A/G Ratio 1.0 Ratio 09/22/2017 Comp Metabolic Onw932 Osmo 286 mOsmo 09/22/2017 %Hba1C Ciy583 % HbA1c 21582-0 9.0 % 07/29/2017 %Hba1C Uzp292 Gluc Ave 212 mg/dL 07/29/2017 Comp Metabolic Wdd902 NA 136 mEq/L 07/29/2017 Comp Metabolic Ovx076 K 3.7 mEq/L 07/29/2017 Comp Metabolic Jyo158 CL 102 mEq/L 07/29/2017 Comp Metabolic Vxl977 CO2 27.0 mEq/L 07/29/2017 Comp Metabolic Alh507 ANION GAP 11 07/29/2017 Comp Metabolic Fsq878 GLUCOSE 386 mg/dL 07/29/2017 Comp Metabolic Dxe916 Creat 0.6 mg/dL 07/29/2017 Comp Metabolic Qyj489 eGFR 142 ml/min/1.73m2 07/29/2017 Comp Metabolic Upl277 BUN 10 mg/dL 07/29/2017 Comp Metabolic Tpi572 B/C Ratio 16.4 Ratio 07/29/2017 Comp Metabolic Gmp695 CALCIUM 8.1 mg/dL 07/29/2017 Comp Metabolic Zth756 ALK PHOS 147 U/L 07/29/2017 Comp Metabolic Fdx416 AST(SGOT) 41 U/L 07/29/2017 Comp Metabolic Ksi235 ALT(SGPT) 24 U/L 07/29/2017 Comp Metabolic Wqv871 BILI T 1.7 mg/dL 07/29/2017 Comp Metabolic Qvt066 ALBUMIN 2.8 g/dL 07/29/2017 Comp Metabolic Cls284 TPRO 5.7 g/dL 07/29/2017 Comp Metabolic Jpx312 GLOB 2.9 g/dL 07/29/2017 Comp Metabolic Nmk799 A/G Ratio 0.9 Ratio 07/29/2017 Comp Metabolic Znt561 Osmo 287 mOsmo 07/29/2017 Comp Metabolic Afc936 NA 138 mEq/L 12/09/2016 Comp Metabolic Nyg208 K 3.7 mEq/L 12/09/2016 Comp Metabolic Mbr504 CL 105 mEq/L 12/09/2016 Comp Metabolic Nfj419 CO2 28.0 mEq/L 12/09/2016 Comp Metabolic Rqr881 ANION GAP 9 12/09/2016 Comp Metabolic Diu625 GLUCOSE 220 mg/dL 12/09/2016 Comp Metabolic Hcw735 Creat 0.5 mg/dL 12/09/2016 Comp Metabolic Lfq366 eGFR 164 ml/min/1.73m2 12/09/2016 Comp Metabolic Flh832 BUN 12 mg/dL 12/09/2016 Comp Metabolic Qhv088 B/C Ratio 22.2 Ratio 12/09/2016 Comp Metabolic Lnv522 CALCIUM 7.9 mg/dL 12/09/2016 Comp Metabolic Ont395 ALK PHOS 85 U/L 12/09/2016 Comp Metabolic Nov722 AST(SGOT) 26 U/L 12/09/2016 Comp Metabolic Nrq610 ALT(SGPT) 12 U/L 12/09/2016 Comp Metabolic Uby168 BILI T 1.6 mg/dL 12/09/2016 Comp Metabolic Ybr661 ALBUMIN 2.9 g/dL 12/09/2016 Comp Metabolic Axs510 TPRO 5.8 g/dL 12/09/2016 Comp Metabolic Rms297 GLOB 2.9 g/dL 12/09/2016 Comp Metabolic Zxm479 A/G Ratio 1.0 Ratio 12/09/2016 Comp Metabolic Byv760 Osmo 282 mOsmo 12/09/2016 Metabolic Ord15 NA 137 mEq/L 10/20/2016 Metabolic Ord15 K 3.8 mEq/L 10/20/2016 Metabolic Ord15 CL 104 mEq/L 10/20/2016 Metabolic Ord15 CO2 24.0 mEq/L 10/20/2016 Metabolic Ord15 GLUCOSE 153 mg/dL 10/20/2016 Metabolic Ord15 BUN 8 mg/dL 10/20/2016 Metabolic Ord15 Creat 0.5 mg/dL 10/20/2016 Metabolic Ord15 B/C Ratio 15.4 Ratio 10/20/2016 Metabolic Ord15 eGFR 171 ml/min/1.73m2 10/20/2016 Metabolic Ord15 Osmo 275 mOsmo 10/20/2016 Metabolic Ord15 ANION GAP 13 10/20/2016 Metabolic Ord15 CALCIUM 8.3 mg/dL 10/20/2016 Comp Metabolic Xkr315 NA 137 mEq/L 07/31/2016 Comp Metabolic Soy097 K 3.7 mEq/L 07/31/2016 Comp Metabolic Gbn990 CL 105 mEq/L 07/31/2016 Comp Metabolic Gfm980 CO2 24.0 mEq/L 07/31/2016 Comp Metabolic Fag676 ANION GAP 12 07/31/2016 Comp Metabolic Gnp004 GLUCOSE 205 mg/dL 07/31/2016 Comp Metabolic Dcz454 Creat 0.7 mg/dL 07/31/2016 Comp Metabolic Clp693 eGFR 132 ml/min/1.73m2 07/31/2016 Comp Metabolic Xby342 BUN 12 mg/dL 07/31/2016 Comp Metabolic Kzd614 B/C Ratio 18.5 Ratio 07/31/2016 Comp Metabolic Sml397 CALCIUM 8.4 mg/dL 07/31/2016 Comp Metabolic Kzs718 ALK PHOS 90 U/L 07/31/2016 Comp Metabolic Xsf032 AST(SGOT) 34 U/L 07/31/2016 Comp Metabolic Efa642 ALT(SGPT) 22 U/L 07/31/2016 Comp Metabolic Orn950 BILI T 2.2 mg/dL 07/31/2016 Comp Metabolic Vrl170 ALBUMIN 3.3 g/dL 07/31/2016 Comp Metabolic Nzh180 TPRO 6.8 g/dL 07/31/2016 Comp Metabolic Tiy668 GLOB 3.5 g/dL 07/31/2016 Comp Metabolic Bvu460 A/G Ratio 0.9 Ratio 07/31/2016 Comp Metabolic Uin748 Osmo 279 mOsmo 07/31/2016 Cbc With Differential Ord2 WBC 5.32 K/ul 07/31/2016 Cbc With Differential Ord2 RBC 4.36 M/ul 07/31/2016 Cbc With Differential Ord2 HGB 13.7 g/dl 07/31/2016 Cbc With Differential Ord2 HCT 40.4 % 07/31/2016 Cbc With Differential Ord2 Neut% 68.3 % 07/31/2016 Cbc With Differential Ord2 MCV 92.7 fl 07/31/2016 Cbc With Differential Ord2 Lymph% 17.1 % 07/31/2016 Cbc With Differential Ord2 MCH 31.4 pg 07/31/2016 Cbc With Differential Ord2 [place]% 10.5 % 07/31/2016 Cbc With Differential Ord2 MCHC 33.9 pg 07/31/2016 Cbc With Differential Ord2 Eos% 3.9 % 07/31/2016 Cbc With Differential Ord2 PLT 52 K/ul 07/31/2016 Cbc With Differential Ord2 Baso% 0.2 % 07/31/2016 Cbc With Differential Ord2 RDW 17.2 % 07/31/2016 Cbc With Differential Ord2 Neut ABS# 3.63 K/ul 07/31/2016 Cbc With Differential Ord2 Lymph ABS# 0.91 K/ul 07/31/2016 Cbc With Differential Ord2 [place] ABS# 0.6 K/ul 07/31/2016 Cbc With Differential Ord2 Eos ABS# 0.2 K/ul 07/31/2016 Cbc With Differential Ord2 Baso ABS# 0.0 K/ul 07/31/2016 %Hba1C Rsb963 % HbA1c 78692-9 5.6 % 07/31/2016 %Hba1C Jhy368 Gluc Ave 114 mg/dL 07/31/2016 Lipid Ord30 CHOL 178 mg/dL 07/31/2016 Lipid Ord30 HDL 60.0 mg/dl 07/31/2016 Lipid Ord30 TRIG 74 mg/dL 07/31/2016 Lipid Ord30 LDL 103 mg/dL 07/31/2016 Lipid Ord30 C/HDL 3.0 Ratio 07/31/2016 Tsh Ord6 hTSH II 3.82 uIU/mL 07/31/2016 Cbc With Differential Ord2 WBC 4.82 K/ul 05/21/2016 Cbc With Differential Ord2 RBC 3.89 M/ul 05/21/2016 Cbc With Differential Ord2 HGB 12.6 g/dl 05/21/2016 Cbc With Differential Ord2 Neut% 70.1 % 05/21/2016 Cbc With Differential Ord2 HCT 36.2 % 05/21/2016 Cbc With Differential Ord2 MCV 93.1 fl 05/21/2016 Cbc With Differential Ord2 Lymph% 16.2 % 05/21/2016 Cbc With Differential Ord2 MCH 32.4 pg 05/21/2016 Cbc With Differential Ord2 [place]% 10.6 % 05/21/2016 Cbc With Differential Ord2 Eos% 2.9 % 05/21/2016 Cbc With Differential Ord2 MCHC 34.8 pg 05/21/2016 Cbc With Differential Ord2 PLT 58 K/ul 05/21/2016 Cbc With Differential Ord2 Baso% 0.2 % 05/21/2016 Cbc With Differential Ord2 Neut ABS# 3.38 K/ul 05/21/2016 Cbc With Differential Ord2 RDW 18.6 % 05/21/2016 Cbc With Differential Ord2 Lymph ABS# 0.78 K/ul 05/21/2016 Cbc With Differential Ord2 [place] ABS# 0.5 K/ul 05/21/2016 Cbc With Differential Ord2 Eos ABS# 0.1 K/ul 05/21/2016 Cbc With Differential Ord2 Baso ABS# 0.0 K/ul 05/21/2016 Pt Nxb3692 PT 16.4 seconds 05/21/2016 Pt Ysx8746 INR 1.4 05/21/2016 Pt Lta1328 Low Intensity - 1.5-2.0 05/21/2016 Pt Pov4710 Mod intensity - 2.0-3.0 05/21/2016 Pt Opn4214 Hi intensity - 3.0-4.0 05/21/2016 Comp Metabolic Jbc627 NA 136 mEq/L 05/21/2016 Comp Metabolic Yul599 K 3.4 mEq/L 05/21/2016 Comp Metabolic Lem289 CL 102 mEq/L 05/21/2016 Comp Metabolic Ski900 CO2 28.0 mEq/L 05/21/2016 Comp Metabolic Bce175 ANION GAP 9 05/21/2016 Comp Metabolic Qik556 GLUCOSE 164 mg/dL 05/21/2016 Comp Metabolic Xfq117 Creat 0.5 mg/dL 05/21/2016 Comp Metabolic Uoe733 eGFR 175 ml/min/1.73m2 05/21/2016 Comp Metabolic Fpy765 BUN 8 mg/dL 05/21/2016 Comp Metabolic Wef902 B/C Ratio 15.7 Ratio 05/21/2016 Comp Metabolic Lso274 CALCIUM 8.1 mg/dL 05/21/2016 Comp Metabolic Qfo653 ALK PHOS 77 U/L 05/21/2016 Comp Metabolic Mmc341 AST(SGOT) 62 U/L 05/21/2016 Comp Metabolic Ivk505 ALT(SGPT) 83 U/L 05/21/2016 Comp Metabolic Skw753 BILI T 2.3 mg/dL 05/21/2016 Comp Metabolic Rvb200 ALBUMIN 2.9 g/dL 05/21/2016 Comp Metabolic Lib427 TPRO 5.9 g/dL 05/21/2016 Comp Metabolic Bpy729 GLOB 3.0 g/dL 05/21/2016 Comp Metabolic Okj045 A/G Ratio 1.0 Ratio 05/21/2016 Comp Metabolic Jgw595 Osmo 274 mOsmo 05/21/2016 Afp Serum Tumor Marker [id number] ALPHA- FETOPROTEIN TM 1.8 ng/mL 04/29/2016 Cbc With Differential Ord2 WBC 3.46 K/ul 04/28/2016 Cbc With Differential Ord2 RBC 4.09 M/ul 04/28/2016 Cbc With Differential Ord2 HGB 13.4 g/dl 04/28/2016 Cbc With Differential Ord2 HCT 37.7 % 04/28/2016 Cbc With Differential Ord2 Neut% 67.4 % 04/28/2016 Cbc With Differential Ord2 Lymph% 14.7 % 04/28/2016 Cbc With Differential Ord2 MCV 92.2 fl 04/28/2016 Cbc With Differential Ord2 [place]% 13.3 % 04/28/2016 Cbc With Differential Ord2 MCH 32.8 pg 04/28/2016 Cbc With Differential Ord2 MCHC 35.5 pg 04/28/2016 Cbc With Differential Ord2 Eos% 4.3 % 04/28/2016 Cbc With Differential Ord2 PLT 45 K/ul 04/28/2016 Cbc With Differential Ord2 Baso% 0.3 % 04/28/2016 Cbc With Differential Ord2 Neut ABS# 2.33 K/ul 04/28/2016 Cbc With Differential Ord2 RDW 15.6 % 04/28/2016 Cbc With Differential Ord2 Lymph ABS# 0.51 K/ul 04/28/2016 Cbc With Differential Ord2 [place] ABS# 0.5 K/ul 04/28/2016 Cbc With Differential Ord2 Eos ABS# 0.2 K/ul 04/28/2016 Cbc With Differential Ord2 Baso ABS# 0.0 K/ul 04/28/2016 Pt Jom1656 PT 15.6 seconds 04/28/2016 Pt Lkl3335 INR 1.3 04/28/2016 Pt Iqs9641 Low Intensity - 1.5-2.0 04/28/2016 Pt Ulv0645 Mod intensity - 2.0-3.0 04/28/2016 Pt Xvo2482 Hi intensity - 3.0-4.0 04/28/2016 Comp Metabolic Hiw726 NA 136 mEq/L 04/28/2016 Comp Metabolic Dio168 K 3.8 mEq/L 04/28/2016 Comp Metabolic Hdd922 CL 102 mEq/L 04/28/2016 Comp Metabolic Dhd962 CO2 29.0 mEq/L 04/28/2016 Comp Metabolic Fmt363 ANION GAP 9 04/28/2016 Comp Metabolic Mda154 GLUCOSE 153 mg/dL 04/28/2016 Comp Metabolic Bzd470 Creat 0.6 mg/dL 04/28/2016 Comp Metabolic Brd452 eGFR 143 ml/min/1.73m2 04/28/2016 Comp Metabolic Asz765 BUN 7 mg/dL 04/28/2016 Comp Metabolic Vde493 B/C Ratio 11.5 Ratio 04/28/2016 Comp Metabolic Stm566 CALCIUM 8.4 mg/dL 04/28/2016 Comp Metabolic Cme055 ALK PHOS 119 U/L 04/28/2016 Comp Metabolic Okh800 AST(SGOT) 42 U/L 04/28/2016 Comp Metabolic Igt145 ALT(SGPT) 24 U/L 04/28/2016 Comp Metabolic Sci055 BILI T 1.9 mg/dL 04/28/2016 Comp Metabolic Xrw084 ALBUMIN 3.1 g/dL 04/28/2016 Comp Metabolic Kyj634 TPRO 6.4 g/dL 04/28/2016 Comp Metabolic Stn686 GLOB 3.4 g/dL 04/28/2016 Comp Metabolic Add315 A/G Ratio 0.9 Ratio 04/28/2016 Comp Metabolic Sqd575 Osmo 273 mOsmo 04/28/2016 Cbc With Differential Ord2 WBC 4.50 K/ul 01/22/2016 Cbc With Differential Ord2 RBC 3.97 M/ul 01/22/2016 Cbc With Differential Ord2 HGB 12.8 g/dl 01/22/2016 Cbc With Differential Ord2 HCT 37.4 % 01/22/2016 Cbc With Differential Ord2 Neut% 63.2 % 01/22/2016 Cbc With Differential Ord2 Lymph% 14.0 % 01/22/2016 Cbc With Differential Ord2 MCV 94.2 fl 01/22/2016 Cbc With Differential Ord2 MCH 32.2 pg 01/22/2016 Cbc With Differential Ord2 [place]% 19.3 % 01/22/2016 Cbc With Differential Ord2 MCHC 34.2 pg 01/22/2016 Cbc With Differential Ord2 Eos% 3.1 % 01/22/2016 Cbc With Differential Ord2 Baso% 0.4 % 01/22/2016 Cbc With Differential Ord2 PLT 47 K/ul 01/22/2016 Cbc With Differential Ord2 RDW 16.1 % 01/22/2016 Cbc With Differential Ord2 Neut ABS# 2.84 K/ul 01/22/2016 Cbc With Differential Ord2 Lymph ABS# 0.63 K/ul 01/22/2016 Cbc With Differential Ord2 [place] ABS# 0.9 K/ul 01/22/2016 Cbc With Differential Ord2 Eos ABS# 0.1 K/ul 01/22/2016 Cbc With Differential Ord2 Baso ABS# 0.0 K/ul 01/22/2016 Comp Metabolic Iqq601 NA 134 mEq/L 01/22/2016 Comp Metabolic Yrl366 K 3.8 mEq/L 01/22/2016 Comp Metabolic Ynz474 CL 102 mEq/L 01/22/2016 Comp Metabolic Myc985 CO2 28.0 mEq/L 01/22/2016 Comp Metabolic Ize601 ANION GAP 8 01/22/2016 Comp Metabolic Twp514 GLUCOSE 179 mg/dL 01/22/2016 Comp Metabolic Zyk967 Creat 0.5 mg/dL 01/22/2016 Comp Metabolic Qgm817 eGFR 164 ml/min/1.73m2 01/22/2016 Comp Metabolic Iew237 BUN 11 mg/dL 01/22/2016 Comp Metabolic Kbi203 B/C Ratio 20.4 Ratio 01/22/2016 Comp Metabolic Xzp952 CALCIUM 8.2 mg/dL 01/22/2016 Comp Metabolic Vmq841 ALK PHOS 171 U/L 01/22/2016 Comp Metabolic Wcn867 AST(SGOT) 25 U/L 01/22/2016 Comp Metabolic [id number] ALT(SGPT) 13 U/L 01/22/2016 Comp Metabolic Zqx702 BILI T 2.4 mg/dL 01/22/2016 Comp Metabolic Tph995 ALBUMIN 3.0 g/dL 01/22/2016 Comp Metabolic Wku177 TPRO 6.3 g/dL 01/22/2016 Comp Metabolic Syp477 GLOB 3.3 g/dL 01/22/2016 Comp Metabolic Ehg512 A/G Ratio 0.9 Ratio 01/22/2016 Comp Metabolic Fjl263 Osmo 272 mOsmo 01/22/2016 Afp Serum Tumor Marker [id number] ALPHA- FETOPROTEIN TM 2.2 ng/mL 12/25/2015 Pt [id number] PT 16.4 seconds 12/20/2015 Pt [id number] INR 1.4 12/20/2015 Pt [id number] Low Intensity - 1.5-2.0 12/20/2015 Pt Vrp4882 Mod intensity - 2.0-3.0 12/20/2015 Pt [id number] Hi intensity - 3.0-4.0 12/20/2015 Cbc With Differential Ord2 WBC 4.82 K/ul 12/20/2015 Cbc With Differential Ord2 RBC 4.11 M/ul 12/20/2015 Cbc With Differential Ord2 HGB 13.1 g/dl 12/20/2015 Cbc With Differential Ord2 HCT 37.5 % 12/20/2015 Cbc With Differential Ord2 Neut% 75.7 % 12/20/2015 Cbc With Differential Ord2 Lymph% 13.1 % 12/20/2015 Cbc With Differential Ord2 MCV 91.2 fl 12/20/2015 Cbc With Differential Ord2 [place]% 8.1 % 12/20/2015 Cbc With Differential Ord2 MCH 31.9 pg 12/20/2015 Cbc With Differential Ord2 MCHC 34.9 pg 12/20/2015 Cbc With Differential Ord2 Eos% 2.9 % 12/20/2015 Cbc With Differential Ord2 PLT 50 K/ul 12/20/2015 Cbc With Differential Ord2 Baso% 0.2 % 12/20/2015 Cbc With Differential Ord2 RDW 15.7 % 12/20/2015 Cbc With Differential Ord2 Neut ABS# 3.65 K/ul 12/20/2015 Cbc With Differential Ord2 Lymph ABS# 0.63 K/ul 12/20/2015 Cbc With Differential Ord2 [place] ABS# 0.4 K/ul 12/20/2015 Cbc With Differential Ord2 Eos ABS# 0.1 K/ul 12/20/2015 Cbc With Differential Ord2 Baso ABS# 0.0 K/ul 12/20/2015 Cbc With Differential Ord2 New Analyzer Notice Please note new ref ranges starting 08-22-2015 due to implemntation of new five part differential hematolgy analyzer. 12/20/2015 Comp Metabolic Iyo518 NA 138 mEq/L 12/20/2015 Comp Metabolic Cwv894 K 3.7 mEq/L 12/20/2015 Comp Metabolic Syl707 CL 100 mEq/L 12/20/2015 Comp Metabolic Uma808 CO2 31.0 mEq/L 12/20/2015 Comp Metabolic Oro399 ANION GAP 11 12/20/2015 Comp Metabolic Xma035 GLUCOSE 150 mg/dL 12/20/2015 Comp Metabolic Vvy034 Creat 0.4 mg/dL 12/20/2015 Comp Metabolic Grz699 eGFR 239 ml/min/1.73m2 12/20/2015 Comp Metabolic Zlg228 BUN 9 mg/dL 12/20/2015 Comp Metabolic Dmj233 B/C Ratio 23.1 Ratio 12/20/2015 Comp Metabolic Kju329 CALCIUM 7.9 mg/dL 12/20/2015 Comp Metabolic Avu187 ALK PHOS 82 U/L 12/20/2015 Comp Metabolic Eet812 AST(SGOT) 29 U/L 12/20/2015 Comp Metabolic Kgd555 ALT(SGPT) 16 U/L 12/20/2015 Comp Metabolic Sgv155 BILI T 1.8 mg/dL 12/20/2015 Comp Metabolic Wzf422 ALBUMIN 2.8 g/dL 12/20/2015 Comp Metabolic Vss287 TPRO 5.8 g/dL 12/20/2015 Comp Metabolic Cvz424 GLOB 3.0 g/dL 12/20/2015 Comp Metabolic Mzw690 A/G Ratio 0.9 Ratio 12/20/2015 Comp Metabolic Jyj858 Osmo 277 mOsmo 12/20/2015 Vitamin D 25 Oh Pfe7177 VITAMIN D, 25 HYDROXY 110.69 ng/mL 10/24/2015 %Hba1C Erk110 % HbA1c 03793-5 6.0 % 10/23/2015 %Hba1C Cax584 Gluc Ave 126 mg/dL 10/23/2015 Magnesium Ord90 Mag 1.7 mg/dL 10/23/2015 Microalbumin Ckq659 MicroAlb 0.2 mg/dL 10/23/2015 Tsh Ord6 hTSH II 2.74 uIU/mL 10/23/2015 Comp Metabolic Xht699 NA 133 mEq/L 10/23/2015 Comp Metabolic Bot135 K 3.6 mEq/L 10/23/2015 Comp Metabolic Svl295 CL 101 mEq/L 10/23/2015 Comp Metabolic Lfc931 CO2 27.0 mEq/L 10/23/2015 Comp Metabolic Mec618 ANION GAP 9 10/23/2015 Comp Metabolic Yor604 GLUCOSE 250 mg/dL 10/23/2015 Comp Metabolic Mam519 Creat 0.5 mg/dL 10/23/2015 Comp Metabolic Lwy030 eGFR 164 ml/min/1.73m2 10/23/2015 Comp Metabolic Slr437 BUN 8 mg/dL 10/23/2015 Comp Metabolic Npn886 B/C Ratio 14.8 Ratio 10/23/2015 Comp Metabolic Zul622 CALCIUM 8.4 mg/dL 10/23/2015 Comp Metabolic Rqz449 ALK PHOS 103 U/L 10/23/2015 Comp Metabolic Gqi819 AST(SGOT) 37 U/L 10/23/2015 Comp Metabolic Yek573 ALT(SGPT) 21 U/L 10/23/2015 Comp Metabolic Vrv967 BILI T 1.9 mg/dL 10/23/2015 Comp Metabolic Bqp209 ALBUMIN 3.1 g/dL 10/23/2015 Comp Metabolic Ped355 TPRO 6.2 g/dL 10/23/2015 Comp Metabolic Mbb582 GLOB 3.1 g/dL 10/23/2015 Comp Metabolic Rje678 A/G Ratio 1.0 Ratio 10/23/2015 Comp Metabolic Isb162 Osmo 273 mOsmo 10/23/2015 Cbc With Differential Ord2 WBC 3.99 K/ul 10/23/2015 Cbc With Differential Ord2 RBC 4.21 M/ul 10/23/2015 Cbc With Differential Ord2 HGB 13.5 g/dl 10/23/2015 Cbc With Differential Ord2 HCT 38.2 % 10/23/2015 Cbc With Differential Ord2 Neut% 73.1 % 10/23/2015 Cbc With Differential Ord2 Lymph% 13.3 % 10/23/2015 Cbc With Differential Ord2 MCV 90.7 fl 10/23/2015 Cbc With Differential Ord2 [place]% 9.5 % 10/23/2015 Cbc With Differential Ord2 MCH 32.1 pg 10/23/2015 Cbc With Differential Ord2 MCHC 35.3 pg 10/23/2015 Cbc With Differential Ord2 Eos% 3.8 % 10/23/2015 Cbc With Differential Ord2 Baso% 0.3 % 10/23/2015 Cbc With Differential Ord2 PLT 55 K/ul 10/23/2015 Cbc With Differential Ord2 RDW 15.2 % 10/23/2015 Cbc With Differential Ord2 Neut ABS# 2.92 K/ul 10/23/2015 Cbc With Differential Ord2 Lymph ABS# 0.53 K/ul 10/23/2015 Cbc With Differential Ord2 [place] ABS# 0.4 K/ul 10/23/2015 Cbc With Differential Ord2 Eos ABS# 0.2 K/ul 10/23/2015 Cbc With Differential Ord2 Baso ABS# 0.0 K/ul 10/23/2015 Cbc With Differential Ord2 New Analyzer Notice Please note new ref ranges starting 08-22-2015 due to implemntation of new five part differential hematolgy analyzer. 10/23/2015 Comp Metabolic Uzp845 NA 133 mEq/L 03/15/2015 Comp Metabolic Hlv229 K 3.9 mEq/L 03/15/2015 Comp Metabolic Jtf140 CL 102 mEq/L 03/15/2015 Comp Metabolic Vgc652 CO2 26.0 mEq/L 03/15/2015 Comp Metabolic Nsx393 ANION GAP 9 03/15/2015 Comp Metabolic Xqx131 GLUCOSE 117 mg/dL 03/15/2015 Comp Metabolic Scd696 Creat 0.6 mg/dL 03/15/2015 Comp Metabolic Fks969 eGFR 143 ml/min/1.73m2 03/15/2015 Comp Metabolic Yzx347 BUN 13 mg/dL 03/15/2015 Comp Metabolic Szy479 B/C Ratio 21.3 Ratio 03/15/2015 Comp Metabolic Lvt829 CALCIUM 8.7 mg/dL 03/15/2015 Comp Metabolic Bmg171 ALK PHOS 70 U/L 03/15/2015 Comp Metabolic Npg387 AST(SGOT) 24 U/L 03/15/2015 Comp Metabolic Ewm338 ALT(SGPT) 14 U/L 03/15/2015 Comp Metabolic Ujy309 BILI T 1.2 mg/dL 03/15/2015 Comp Metabolic Mke697 ALBUMIN 3.3 g/dL 03/15/2015 Comp Metabolic Ikh733 TPRO 6.6 g/dL 03/15/2015 Comp Metabolic Uje306 GLOB 3.3 g/dL 03/15/2015 Comp Metabolic Sip563 A/G Ratio 1.0 Ratio 03/15/2015 Comp Metabolic Mos737 Osmo 268 mOsmo 03/15/2015 Lipid Ord30 CHOL 165 mg/dL 03/15/2015 Lipid Ord30 HDL 51.0 mg/dl 03/15/2015 Lipid Ord30 TRIG 55 mg/dL 03/15/2015 Lipid Ord30 LDL 103 mg/dL 03/15/2015 Lipid Ord30 C/HDL 3.2 Ratio 03/15/2015 Cbc With Differential Ord2 WBC 3.5 K/uL 03/15/2015 Cbc With Differential Ord2 LYM 0.6 K/uL 03/15/2015 Cbc With Differential Ord2 LYM% 18.5 % 03/15/2015 Cbc With Differential Ord2 NEUT/GRAN 2.5 K/uL 03/15/2015 Cbc With Differential Ord2 NEUT/GRAN % 71.3 % 03/15/2015 Cbc With Differential Ord2 MID 0.4 K/uL 03/15/2015 Cbc With Differential Ord2 MID% 10.2 % 03/15/2015 Cbc With Differential Ord2 RBC 4.37 M/uL 03/15/2015 Cbc With Differential Ord2 HGB 11.7 g/dL 03/15/2015 Cbc With Differential Ord2 HCT 35.8 % 03/15/2015 Cbc With Differential Ord2 MCV 82 fL 03/15/2015 Cbc With Differential Ord2 MCH 27 pg 03/15/2015 Cbc With Differential Ord2 MCHC 33 g/dL 03/15/2015 Cbc With Differential Ord2 PLT 77 K/uL 03/15/2015 Cbc With Differential Ord2 RDW 20.1 % 03/15/2015 %Hba1C Qir686 % HbA1c 54137-4 5.9 % 03/15/2015 %Hba1C Usx970 Gluc Ave 123 mg/dL 03/15/2015 Cbc With Differential Ord2 WBC 4.6 K/uL 02/28/2015 Cbc With Differential Ord2 LYM 0.6 K/uL 02/28/2015 Cbc With Differential Ord2 LYM% 14.0 % 02/28/2015 Cbc With Differential Ord2 NEUT/GRAN 3.3 K/uL 02/28/2015 Cbc With Differential Ord2 NEUT/GRAN % 71.5 % 02/28/2015 Cbc With Differential Ord2 MID 0.7 K/uL 02/28/2015 Cbc With Differential Ord2 MID% 14.5 % 02/28/2015 Cbc With Differential Ord2 RBC 4.23 M/uL 02/28/2015 Cbc With Differential Ord2 HGB 11.2 g/dL 02/28/2015 Cbc With Differential Ord2 HCT 35.4 % 02/28/2015 Cbc With Differential Ord2 MCV 84 fL 02/28/2015 Cbc With Differential Ord2 MCH 27 pg 02/28/2015 Cbc With Differential Ord2 MCHC 32 g/dL 02/28/2015 Cbc With Differential Ord2 PLT 93 K/uL 02/28/2015 Cbc With Differential Ord2 RDW 19.8 % 02/28/2015 Comp Metabolic Rue558 NA 131 mEq/L 02/28/2015 Comp Metabolic Qfp967 K 3.8 mEq/L 02/28/2015 Comp Metabolic Yiz457 CL 100 mEq/L 02/28/2015 Comp Metabolic Jjj673 CO2 24.0 mEq/L 02/28/2015 Comp Metabolic Kxq219 ANION GAP 11 02/28/2015 Comp Metabolic Qla156 GLUCOSE 106 mg/dL 02/28/2015 Comp Metabolic Icp820 Creat 0.6 mg/dL 02/28/2015 Comp Metabolic Lwd421 eGFR 155 ml/min/1.73m2 02/28/2015 Comp Metabolic Jal379 BUN 10 mg/dL 02/28/2015 Comp Metabolic Nou260 B/C Ratio 17.5 Ratio 02/28/2015 Comp Metabolic Jwg096 CALCIUM 8.5 mg/dL 02/28/2015 Comp Metabolic Mjd273 ALK PHOS 64 U/L 02/28/2015 Comp Metabolic Jdz683 AST(SGOT) 35 U/L 02/28/2015 Comp Metabolic Qam551 ALT(SGPT) 59 U/L 02/28/2015 Comp Metabolic Ops114 BILI T 1.7 mg/dL 02/28/2015 Comp Metabolic Lid975 ALBUMIN 3.1 g/dL 02/28/2015 Comp Metabolic Tir922 TPRO 5.9 g/dL 02/28/2015 Comp Metabolic Qhy649 GLOB 2.8 g/dL 02/28/2015 Comp Metabolic Uds871 A/G Ratio 1.1 Ratio 02/28/2015 Comp Metabolic Sfm219 Osmo 262 mOsmo 02/28/2015 Review of Systems System Result Effective Dates Constitutional No recent illness 2017 Constitutional No chills 07/05/2018 Constitutional No fever 07/05/2018 Eyes No blindness 07/05/2018 Eyes No vision change 07/05/2018 Ears/Nose/Throat/Neck No cerumen 2017 Ears/Nose/Throat/Neck No sore throat Cardiovascular No chest pain/pressure Cardiovascular No dyspnea 07/05/2018 Cardiovascular No edema 07/05/2018 Cardiovascular No fatigue 07/05/2018 Respiratory No pleuritic pain 07/05/2018 Respiratory No chest congestion 2017 Respiratory No chest tightness 2017 Gastrointestinal No abdominal pain 2017 Gastrointestinal No constipation 2017 Gastrointestinal No diarrhea 07/05/2018 Gastrointestinal No nausea 07/05/2018 Gastrointestinal No vomiting 07/05/2018 Musculoskeletal back pain 07/05/2018 Neurologic No dizziness 07/05/2018 Neurologic No headache 07/05/2018 Psychiatric No anxiety 07/05/2018 Psychiatric No depression 07/05/2018 Endocrine diabetes mellitus type 2 2017 Constitutional No recent illness 2017 Constitutional No chills 01/26/2018 Constitutional No diaphoresis 01/26/2018 Constitutional No fever 01/26/2018 Eyes No eye erythema 01/26/2018 Ears/Nose/Throat/Neck No nasal discharge 01/26/2018 Cardiovascular No chest pain/pressure Cardiovascular No dyspnea 01/26/2018 Respiratory No cough 01/26/2018 Respiratory No dyspnea 01/26/2018 Neurologic No alteration of consciousness 01/26/2018 Neurologic No mental status change 2017 Constitutional No recent illness 2017 Constitutional No chills 01/06/2018 Constitutional No fever 01/06/2018 Eyes No blindness 01/06/2018 Eyes No vision change 01/06/2018 Ears/Nose/Throat/Neck No cerumen 2017 Ears/Nose/Throat/Neck No sore throat Cardiovascular No chest pain/pressure Cardiovascular No dyspnea 01/06/2018 Cardiovascular No edema 01/06/2018 Cardiovascular No fatigue 01/06/2018 Respiratory No pleuritic pain 01/06/2018 Respiratory No chest congestion 2017 Respiratory No chest tightness 2017 Gastrointestinal No abdominal pain 2017 Gastrointestinal No constipation 2017 Gastrointestinal No diarrhea 01/06/2018 Gastrointestinal No nausea 01/06/2018 Gastrointestinal No vomiting 01/06/2018 Musculoskeletal back pain 01/06/2018 Neurologic No dizziness 01/06/2018 Neurologic No headache 01/06/2018 Psychiatric No anxiety 01/06/2018 Psychiatric No depression 01/06/2018 Endocrine diabetes mellitus type 2 2017 Constitutional No recent illness 2017 Constitutional No chills 09/28/2017 Constitutional No fever 09/28/2017 Eyes No blindness 09/28/2017 Eyes No vision change 09/28/2017 Ears/Nose/Throat/Neck No cerumen 2017 Ears/Nose/Throat/Neck No sore throat Cardiovascular No chest pain/pressure Cardiovascular No dyspnea 09/28/2017 Cardiovascular No edema 09/28/2017 Cardiovascular No fatigue 09/28/2017 Respiratory No pleuritic pain 09/28/2017 Respiratory No chest congestion 2017 Respiratory No chest tightness 2017 Gastrointestinal No abdominal pain 2017 Gastrointestinal No constipation 2017 Gastrointestinal No diarrhea 09/28/2017 Gastrointestinal No nausea 09/28/2017 Gastrointestinal No vomiting 09/28/2017 Musculoskeletal back pain 09/28/2017 Neurologic No dizziness 09/28/2017 Neurologic No headache 09/28/2017 Psychiatric No anxiety 09/28/2017 Psychiatric No depression 09/28/2017 Endocrine diabetes mellitus type 2 2017 Constitutional No recent illness 2016 Constitutional No chills 07/29/2017 Constitutional No fever 07/29/2017 Eyes No blindness 07/29/2017 Eyes No vision change 07/29/2017 Ears/Nose/Throat/Neck No cerumen 2016 Ears/Nose/Throat/Neck No sore throat Cardiovascular No chest pain/pressure Cardiovascular No dyspnea 07/29/2017 Cardiovascular No edema 07/29/2017 Cardiovascular No fatigue 07/29/2017 Respiratory No pleuritic pain 07/29/2017 Respiratory No chest congestion 2016 Respiratory No chest tightness 2016 Gastrointestinal No abdominal pain 2016 Gastrointestinal No constipation 2016 Gastrointestinal No diarrhea 07/29/2017 Gastrointestinal No nausea 07/29/2017 Gastrointestinal No vomiting 07/29/2017 Musculoskeletal back pain 07/29/2017 Neurologic No dizziness 07/29/2017 Neurologic No headache 07/29/2017 Psychiatric No anxiety 07/29/2017 Psychiatric No depression 07/29/2017 Endocrine diabetes mellitus type 2 2016 Dermatologic pigmentation change 2016 Constitutional No recent illness 2016 Constitutional No chills 05/28/2017 Constitutional No fever 05/28/2017 Eyes No blindness 05/28/2017 Eyes No vision change 05/28/2017 Ears/Nose/Throat/Neck No cerumen 2016 Ears/Nose/Throat/Neck No sore throat Cardiovascular No chest pain/pressure Cardiovascular No dyspnea 05/28/2017 Cardiovascular No edema 05/28/2017 Cardiovascular No fatigue 05/28/2017 Respiratory No pleuritic pain 05/28/2017 Respiratory No chest congestion 2016 Respiratory No chest tightness 2016 Gastrointestinal No abdominal pain 2016 Gastrointestinal No constipation 2016 Gastrointestinal No diarrhea 05/28/2017 Gastrointestinal No nausea 05/28/2017 Gastrointestinal No vomiting 05/28/2017 Genitourinary/Nephrology hernia 2016 Musculoskeletal back pain 05/28/2017 Neurologic No dizziness 05/28/2017 Neurologic No headache 05/28/2017 Psychiatric No anxiety 05/28/2017 Psychiatric No depression 05/28/2017 Constitutional No recent illness 2016 Constitutional No chills 04/02/2017 Constitutional No fever 04/02/2017 Eyes No blindness 04/02/2017 Eyes No vision change 04/02/2017 Ears/Nose/Throat/Neck No cerumen 2016 Ears/Nose/Throat/Neck No sore throat Cardiovascular No chest pain/pressure Cardiovascular No dyspnea 04/02/2017 Cardiovascular No edema 04/02/2017 Cardiovascular No fatigue 04/02/2017 Respiratory No pleuritic pain 04/02/2017 Respiratory No chest congestion 2016 Respiratory No chest tightness 2016 Respiratory cough 04/02/2017 Gastrointestinal No abdominal pain 2016 Gastrointestinal No constipation 2016 Gastrointestinal No diarrhea 04/02/2017 Gastrointestinal No nausea 04/02/2017 Gastrointestinal No vomiting 04/02/2017 Musculoskeletal back pain 04/02/2017 Neurologic No dizziness 04/02/2017 Neurologic No headache 04/02/2017 Psychiatric No anxiety 04/02/2017 Psychiatric No depression 04/02/2017 Ears/Nose/Throat/Neck epistaxis 2016 Constitutional No recent illness 2016 Constitutional No chills 03/04/2017 Constitutional No fever 03/04/2017 Eyes No blindness 03/04/2017 Eyes No vision change 03/04/2017 Ears/Nose/Throat/Neck No cerumen 2016 Ears/Nose/Throat/Neck No sore throat Cardiovascular No chest pain/pressure Cardiovascular No dyspnea 03/04/2017 Cardiovascular No edema 03/04/2017 Cardiovascular No fatigue 03/04/2017 Respiratory No pleuritic pain 03/04/2017 Respiratory No chest congestion 2016 Respiratory No chest tightness 2016 Gastrointestinal No abdominal pain 2016 Gastrointestinal No constipation 2016 Gastrointestinal No diarrhea 03/04/2017 Gastrointestinal No nausea 03/04/2017 Gastrointestinal No vomiting 03/04/2017 Genitourinary/Nephrology hernia 2016 Musculoskeletal back pain 03/04/2017 Dermatologic No rash 03/04/2017 Neurologic No dizziness 03/04/2017 Neurologic No headache 03/04/2017 Psychiatric No anxiety 03/04/2017 Psychiatric No depression 03/04/2017 Constitutional No recent illness 2016 Constitutional No chills 02/05/2017 Constitutional No fever 02/05/2017 Eyes No blindness 02/05/2017 Eyes No vision change 02/05/2017 Ears/Nose/Throat/Neck No cerumen 2016 Ears/Nose/Throat/Neck No sore throat Cardiovascular No chest pain/pressure Cardiovascular No dyspnea 02/05/2017 Cardiovascular No edema 02/05/2017 Cardiovascular No fatigue 02/05/2017 Respiratory No pleuritic pain 02/05/2017 Respiratory No chest congestion 2016 Respiratory No chest tightness 2016 Respiratory cough 02/05/2017 Gastrointestinal No abdominal pain 2016 Gastrointestinal No constipation 2016 Gastrointestinal No diarrhea 02/05/2017 Gastrointestinal No nausea 02/05/2017 Gastrointestinal No vomiting 02/05/2017 Genitourinary/Nephrology hernia 2016 Musculoskeletal back pain 02/05/2017 Dermatologic No rash 02/05/2017 Neurologic No dizziness 02/05/2017 Neurologic No headache 02/05/2017 Psychiatric No anxiety 02/05/2017 Psychiatric No depression 02/05/2017 Constitutional recent illness 12/22/2016 Constitutional chills 12/22/2016 Constitutional fever 12/22/2016 Constitutional malaise 12/22/2016 Eyes No eye erythema 12/22/2016 Ears/Nose/Throat/Neck nasal allergies Ears/Nose/Throat/Neck nasal discharge Ears/Nose/Throat/Neck No sinus congestion 12/22/2016 Ears/Nose/Throat/Neck No sore throat Cardiovascular chest pain/pressure 2016 Cardiovascular fatigue 12/22/2016 Cardiovascular No edema 12/22/2016 Respiratory cough 12/22/2016 Respiratory dyspnea on exertion 2016 Respiratory chest congestion 12/22/2016 Neurologic No alteration of consciousness 12/22/2016 Constitutional recent illness 09/08/2016 Constitutional No chills 09/08/2016 Constitutional No fever 09/08/2016 Constitutional weight gain 09/08/2016 Eyes No blindness 09/08/2016 Eyes No vision change 09/08/2016 Ears/Nose/Throat/Neck No cerumen 2016 Ears/Nose/Throat/Neck No sore throat Cardiovascular No chest pain/pressure Cardiovascular dyspnea 09/08/2016 Cardiovascular No edema 09/08/2016 Cardiovascular No fatigue 09/08/2016 Respiratory No pleuritic pain 09/08/2016 Respiratory No chest congestion 2016 Respiratory No chest tightness 2016 Respiratory cough 09/08/2016 Gastrointestinal No abdominal pain 2016 Gastrointestinal No constipation 2016 Gastrointestinal No diarrhea 09/08/2016 Gastrointestinal No nausea 09/08/2016 Gastrointestinal No vomiting 09/08/2016 Musculoskeletal back pain 09/08/2016 Neurologic No dizziness 09/08/2016 Neurologic No headache 09/08/2016 Psychiatric No anxiety 09/08/2016 Psychiatric No depression 09/08/2016 Constitutional malaise 09/08/2016 Cardiovascular exercise intolerance 09/08 Respiratory dyspnea on exertion 2016 Dermatologic No rash 09/08/2016 Constitutional No recent illness 2016 Constitutional No chills 08/19/2016 Constitutional No fever 08/19/2016 Eyes No blindness 08/19/2016 Eyes No vision change 08/19/2016 Ears/Nose/Throat/Neck No cerumen 2016 Ears/Nose/Throat/Neck No sore throat 05/2017 Cardiovascular No chest pain/pressure 05/2017 Cardiovascular No dyspnea 08/19/2016 Cardiovascular No edema 08/19/2016 Cardiovascular No fatigue 08/19/2016 Respiratory No pleuritic pain 08/19/2016 Respiratory No chest congestion 2016 Respiratory No chest tightness 2016 Respiratory cough 08/19/2016 Gastrointestinal No abdominal pain 2016 Gastrointestinal No constipation 2016 Gastrointestinal No diarrhea 08/19/2016 Gastrointestinal No nausea 08/19/2016 Gastrointestinal No vomiting 08/19/2016 Genitourinary/Nephrology hernia 2016 Musculoskeletal back pain 08/19/2016 Dermatologic No rash 08/19/2016 Neurologic No dizziness 08/19/2016 Neurologic No headache 08/19/2016 Psychiatric No anxiety 08/19/2016 Psychiatric No depression 08/19/2016 Constitutional No recent illness 2015 Constitutional No chills 07/21/2016 Constitutional No fever 07/21/2016 Constitutional No weight loss 07/21/2016 Constitutional No weight gain 07/21/2016 Eyes No blindness 07/21/2016 Eyes No vision change 07/21/2016 Ears/Nose/Throat/Neck No cerumen 2015 Ears/Nose/Throat/Neck No sore throat 07/2016 Cardiovascular No chest pain/pressure 07/2016 Cardiovascular No dyspnea 07/21/2016 Cardiovascular No edema 07/21/2016 Cardiovascular No fatigue 07/21/2016 Respiratory No pleuritic pain 07/21/2016 Respiratory No chest congestion 2015 Respiratory No chest tightness 2015 Respiratory cough 07/21/2016 Gastrointestinal No abdominal pain 2015 Gastrointestinal No constipation 2015 Gastrointestinal No diarrhea 07/21/2016 Gastrointestinal No nausea 07/21/2016 Gastrointestinal No vomiting 07/21/2016 Genitourinary/Nephrology hernia 2015 Musculoskeletal back pain 07/21/2016 Dermatologic No rash 07/21/2016 Neurologic No dizziness 07/21/2016 Neurologic No headache 07/21/2016 Psychiatric No anxiety 07/21/2016 Psychiatric No depression 07/21/2016 Constitutional No recent illness 2015 Constitutional No chills 04/22/2016 Constitutional No fever 04/22/2016 Constitutional No weight loss 04/22/2016 Constitutional No weight gain 04/22/2016 Eyes No blindness 04/22/2016 Eyes No vision change 04/22/2016 Ears/Nose/Throat/Neck No cerumen 2015 Ears/Nose/Throat/Neck No sore throat Cardiovascular No chest pain/pressure Cardiovascular No dyspnea 04/22/2016 Cardiovascular No edema 04/22/2016 Cardiovascular No fatigue 04/22/2016 Respiratory No pleuritic pain 04/22/2016 Respiratory No chest congestion 2015 Respiratory No chest tightness 2015 Respiratory cough 04/22/2016 Gastrointestinal No abdominal pain 2015 Gastrointestinal No constipation 2015 Gastrointestinal No diarrhea 04/22/2016 Gastrointestinal No nausea 04/22/2016 Gastrointestinal No vomiting 04/22/2016 Genitourinary/Nephrology hernia 2015 Musculoskeletal back pain 04/22/2016 Dermatologic No rash 04/22/2016 Neurologic No dizziness 04/22/2016 Neurologic No headache 04/22/2016 Psychiatric No anxiety 04/22/2016 Psychiatric No depression 04/22/2016 Constitutional No recent illness 2015 Constitutional No chills 01/22/2016 Constitutional No fever 01/22/2016 Constitutional No weight loss 01/22/2016 Constitutional No weight gain 01/22/2016 Eyes No blindness 01/22/2016 Eyes No vision change 01/22/2016 Ears/Nose/Throat/Neck No cerumen 2015 Ears/Nose/Throat/Neck No sore throat Cardiovascular No chest pain/pressure Cardiovascular No dyspnea 01/22/2016 Cardiovascular No edema 01/22/2016 Cardiovascular No fatigue 01/22/2016 Respiratory No pleuritic pain 01/22/2016 Respiratory No chest congestion 2015 Respiratory cough 01/22/2016 Gastrointestinal No abdominal pain 2015 Gastrointestinal No constipation 2015 Gastrointestinal No diarrhea 01/22/2016 Gastrointestinal No nausea 01/22/2016 Gastrointestinal No vomiting 01/22/2016 Genitourinary/Nephrology hernia 2015 Musculoskeletal back pain 01/22/2016 Dermatologic No rash 01/22/2016 Neurologic No dizziness 01/22/2016 Neurologic No headache 01/22/2016 Psychiatric No anxiety 01/22/2016 Psychiatric No depression 01/22/2016 Respiratory No chest tightness 2015 Constitutional recent illness 01/04/2016 Constitutional No fever 01/04/2016 Eyes No eye erythema 01/04/2016 Eyes No vision change 01/04/2016 Ears/Nose/Throat/Neck No nasal allergies 01/04/2016 Ears/Nose/Throat/Neck No nasal discharge 01/04/2016 Ears/Nose/Throat/Neck No sore throat Cardiovascular No chest pain/pressure Cardiovascular No dyspnea 01/04/2016 Cardiovascular No edema 01/04/2016 Respiratory No productive sputum 2015 Respiratory No chest congestion 2015 Gastrointestinal No abdominal pain 2015 Gastrointestinal No constipation 2015 Gastrointestinal No diarrhea 01/04/2016 Gastrointestinal No nausea 01/04/2016 Gastrointestinal No vomiting 01/04/2016 Neurologic No alteration of consciousness 01/04/2016 Neurologic No mental status change 2015 Genitourinary/Nephrology hematuria 2015 Genitourinary/Nephrology dysuria 2015 Constitutional No fever 11/16/2015 Eyes No eye erythema 11/16/2015 Eyes No vision change 11/16/2015 Ears/Nose/Throat/Neck No sore throat 03/2016 Cardiovascular No chest pain/pressure 03/2016 Cardiovascular No dyspnea 11/16/2015 Cardiovascular No edema 11/16/2015 Respiratory No chest congestion 2015 Respiratory cough 11/16/2015 Gastrointestinal No abdominal pain 2015 Gastrointestinal No constipation 2015 Gastrointestinal No diarrhea 11/16/2015 Gastrointestinal No nausea 11/16/2015 Gastrointestinal No vomiting 11/16/2015 Genitourinary/Nephrology hernia 2015 Musculoskeletal back pain 11/16/2015 Dermatologic No rash 11/16/2015 Psychiatric No anxiety 11/16/2015 Psychiatric No depression 11/16/2015 Constitutional recent illness 11/16/2015 Ears/Nose/Throat/Neck No nasal allergies 11/16/2015 Ears/Nose/Throat/Neck No nasal discharge 11/16/2015 Respiratory No productive sputum 2015 Neurologic No alteration of consciousness 11/16/2015 Neurologic No mental status change 2015 Constitutional No chills 10/23/2015 Constitutional No fever 10/23/2015 Constitutional No weight loss 10/23/2015 Constitutional No weight gain 10/23/2015 Ears/Nose/Throat/Neck No cerumen 2015 Ears/Nose/Throat/Neck No sore throat Cardiovascular No chest pain/pressure Cardiovascular No dyspnea 10/23/2015 Cardiovascular No edema 10/23/2015 Cardiovascular No fatigue 10/23/2015 Respiratory No pleuritic pain 10/23/2015 Respiratory No chest congestion 2015 Respiratory chest tightness 10/23/2015 Respiratory cough 10/23/2015 Gastrointestinal No abdominal pain 2015 Gastrointestinal No constipation 2015 Gastrointestinal No diarrhea 10/23/2015 Gastrointestinal No nausea 10/23/2015 Gastrointestinal No vomiting 10/23/2015 Genitourinary/Nephrology hernia 2015 Musculoskeletal back pain 10/23/2015 Dermatologic No rash 10/23/2015 Neurologic No dizziness 10/23/2015 Neurologic No headache 10/23/2015 Psychiatric No anxiety 10/23/2015 Psychiatric No depression 10/23/2015 Constitutional No recent illness 2015 Eyes No blindness 10/23/2015 Eyes No vision change 10/23/2015 Constitutional No chills 2015 Constitutional No fever 2015 Constitutional No weight loss 2015 Constitutional No weight gain 2015 Ears/Nose/Throat/Neck No cerumen 2015 Ears/Nose/Throat/Neck No sore throat Cardiovascular No chest pain/pressure Cardiovascular No dyspnea 2015 Cardiovascular No edema 2015 Cardiovascular No fatigue 2015 Respiratory No pleuritic pain 2015 Respiratory No chest congestion 2015 Respiratory chest tightness 2015 Respiratory cough 2015 Gastrointestinal No abdominal pain 2015 Gastrointestinal No constipation 2015 Gastrointestinal No diarrhea 2015 Gastrointestinal No nausea 2015 Gastrointestinal No vomiting 2015 Genitourinary/Nephrology hernia 2015 Musculoskeletal back pain 2015 Dermatologic No rash 2015 Neurologic No dizziness 2015 Neurologic No headache 2015 Psychiatric No anxiety 2015 Psychiatric No depression 2015 Constitutional No chills 05/15/2015 Constitutional No fever 05/15/2015 Constitutional No weight loss 05/15/2015 Constitutional No weight gain 05/15/2015 Ears/Nose/Throat/Neck No cerumen 2014 Ears/Nose/Throat/Neck No sore throat 01/2015 Cardiovascular No chest pain/pressure 01/2015 Cardiovascular No dyspnea 05/15/2015 Cardiovascular No edema 05/15/2015 Cardiovascular No fatigue 05/15/2015 Respiratory No pleuritic pain 05/15/2015 Respiratory No chest congestion 2014 Respiratory No chest tightness 2014 Respiratory No cough 05/15/2015 Gastrointestinal No abdominal pain 2014 Gastrointestinal No constipation 2014 Gastrointestinal No diarrhea 05/15/2015 Gastrointestinal No nausea 05/15/2015 Gastrointestinal No vomiting 05/15/2015 Genitourinary/Nephrology hernia 2014 Musculoskeletal back pain 05/15/2015 Dermatologic No rash 05/15/2015 Neurologic No dizziness 05/15/2015 Neurologic No headache 05/15/2015 Constitutional No weight gain 03/22/2015 Constitutional No weight loss 03/22/2015 Constitutional No fever 03/22/2015 Constitutional No chills 03/22/2015 Ears/Nose/Throat/Neck No cerumen 2014 Ears/Nose/Throat/Neck No sore throat Cardiovascular No chest pain/pressure Cardiovascular No dyspnea 03/22/2015 Cardiovascular No edema 03/22/2015 Cardiovascular No fatigue 03/22/2015 Respiratory No pleuritic pain 03/22/2015 Respiratory No chest congestion 2014 Respiratory No chest tightness 2014 Respiratory No cough 03/22/2015 Gastrointestinal No abdominal pain 2014 Gastrointestinal No constipation 2014 Gastrointestinal No diarrhea 03/22/2015 Gastrointestinal No nausea 03/22/2015 Gastrointestinal No vomiting 03/22/2015 Genitourinary/Nephrology hernia 2014 Musculoskeletal back pain 03/22/2015 Dermatologic No rash 03/22/2015 Neurologic No dizziness 03/22/2015 Neurologic No headache 03/22/2015 Constitutional No recent illness 2014 Constitutional No chills 01/23/2015 Constitutional No diaphoresis 01/23/2015 Constitutional No fatigue 01/23/2015 Constitutional No fever 01/23/2015 Constitutional No insomnia 01/23/2015 Constitutional No malaise 01/23/2015 Ears/Nose/Throat/Neck No dizziness 2014 Ears/Nose/Throat/Neck No sore throat Cardiovascular No chest pain/pressure Cardiovascular No edema 01/23/2015 Cardiovascular No exercise intolerance Cardiovascular No fatigue 01/23/2015 Cardiovascular No palpitations 2014 Cardiovascular No syncope 01/23/2015 Respiratory No chest congestion 2014 Respiratory No cough 01/23/2015 Gastrointestinal abdominal pain 2014 Gastrointestinal No constipation 2014 Gastrointestinal No diarrhea 01/23/2015 Gastrointestinal No nausea 01/23/2015 Gastrointestinal No vomiting 01/23/2015 Dermatologic No rash 01/23/2015 Neurologic No alteration of consciousness 01/23/2015 Constitutional anorexia 01/23/2015 Psychiatric anxiety 01/23/2015 Constitutional No chills 12/20/2014 Constitutional No diaphoresis 12/20/2014 Constitutional No fatigue 12/20/2014 Constitutional No fever 12/20/2014 Constitutional No insomnia 12/20/2014 Constitutional No malaise 12/20/2014 Constitutional No recent illness 2014 Ears/Nose/Throat/Neck No dizziness 2014 Ears/Nose/Throat/Neck No sore throat Cardiovascular No chest pain/pressure Cardiovascular No edema 12/20/2014 Cardiovascular No exercise intolerance Cardiovascular No fatigue 12/20/2014 Cardiovascular No palpitations 2014 Cardiovascular No syncope 12/20/2014 Respiratory No chest congestion 2014 Respiratory No cough 12/20/2014 Gastrointestinal No abdominal pain 2014 Gastrointestinal No constipation 2014 Gastrointestinal No diarrhea 12/20/2014 Gastrointestinal No nausea 12/20/2014 Gastrointestinal No vomiting 12/20/2014 Dermatologic No rash 12/20/2014 Neurologic No alteration of consciousness 12/20/2014 Neurologic No mental status change 2014 Physical Exam Exam Name System Name Item Name Status Result Effective Dates Notes Full Exam - General 1994 Constitutional general appearance Development: well developed 07/05/2018 None Full Exam - General 1994 Constitutional general appearance Development: appears stated age 1107/05/2018 None Full Exam - General 1994 Constitutional general appearance Hygiene/Attention to Grooming: good hygiene 07/05/2018 None Full Exam - General 1994 Eyes conjunctiva /eyelids Overall: conjunctiva clear 07/05/2018 None Full Exam - General 1994 Eyes conjunctiva /eyelids Overall: cornea clear 07/05/2018 None Full Exam - General 1994 Eyes conjunctiva /eyelids Overall: eyelids normal 07/05/2018 None Full Exam - General 1994 Eyes pupils and irises Overall: pupils equal, round, reactive to light and accomodation 07/05/2018 None Full Exam - General 1994 Ears/Nose/Throat otoscopic exam Overall: external auditory canals clear 07/05/2018 None Full Exam - General 1994 Ears/Nose/Throat otoscopic exam Overall: tympanic membranes clear 07/05/2018 None Full Exam - General 1994 Ears/Nose/Throat internal nose Nasal cavity: ulceration 07/05/2018 None Full Exam - General 1994 Ears/Nose/Throat lips/teeth/gingiva Overall: benign lips 07/05/2018 None Full Exam - General 1994 Ears/Nose/Throat lips/teeth/gingiva Overall: normal dentition 07/05/2018 None Full Exam - General 1994 Ears/Nose/Throat oral cavity/pharynx/larynx Overall: oral mucosa clear 07/05/2018 None Full Exam - General 1994 Ears/Nose/Throat oral cavity/pharynx/larynx Overall: oropharyngeal mucosa clear 07/05/2018 None Full Exam - General 1994 Ears/Nose/Throat oral cavity/pharynx/larynx Overall: hypopharynx benign 07/05/2018 None Full Exam - General 1994 Ears/Nose/Throat oral cavity/pharynx/larynx Overall: no masses 07/05/2018 None Full Exam - General 1994 Respiratory auscultation Upper lung field: diminished 07/05/2018 None Full Exam - General 1994 Respiratory auscultation Lower lung field: diminished 07/05/2018 None Full Exam - General 1994 Respiratory respiratory effort/rhythm Overall: no retractions 07/05/2018 None Full Exam - General 1994 Respiratory respiratory effort/rhythm Overall: normal rate 07/05/2018 None Full Exam - General 1994 Cardiovascular extremities Overall: no clubbing 07/05/2018 None Full Exam - General 1994 Cardiovascular extremities Edema present: pitting 07/05/2018 None Full Exam - General 1994 Cardiovascular extremities Edema present: severity 1+ - 4 +: 2+ 07/05/2018 None Full Exam - General 1994 Cardiovascular auscultation of heart Overall: regular rate 07/05/2018 None Full Exam - General 1994 Cardiovascular auscultation of heart Overall: normal heart sounds 07/05/2018 None Full Exam - General 1994 Abdomen abdominal exam Overall: no tenderness 07/05/2018 None Full Exam - General 1994 Abdomen abdominal exam Overall: normal bowel sounds 07/05/2018 None Full Exam - General 1994 Abdomen abdominal exam Contour: protuberant 07/05/2018 None Full Exam - General 1994 Lymphatic neck nodes Overall: anterior cervical chain benign 07/05/2018 None Full Exam - General 1994 Lymphatic neck nodes Overall: posterior cervical chain benign 07/05/2018 None Full Exam - General 1994 Musculoskeletal upper extremity ROM - shoulder: crepitus 07/05/2018 None Full Exam - General 1994 Musculoskeletal upper extremity Muscle Strength/Tone - upper arm: biceps: atrophy 07/05/2018 but power is 3/5 Full Exam - General 1994 Musculoskeletal upper extremity Muscle Strength/Tone - upper arm: triceps: atrophy 07/05/2018 3/5 strength Full Exam - General 1994 Musculoskeletal lower extremity Muscle Strength/Tone - thigh: quadriceps: atrophy 07/05/2018 None Full Exam - General 1994 Musculoskeletal lower extremity Muscle Strength/Tone - thigh: hamstrings: atrophy 07/05/2018 None Full Exam - General 1994 Musculoskeletal spine, ribs and pelvis Posture: kyphosis 07/05/2018 None Full Exam - General 1994 Musculoskeletal spine, ribs and pelvis Posture: lordosis 07/05/2018 None Full Exam - General 1994 Musculoskeletal head and neck Overall: head atraumatic 07/05/2018 None Full Exam - General 1994 Musculoskeletal head and neck Overall: cervical spine benign 07/05/2018 None Full Exam - General 1994 Integument inspection of skin Overall: few scattered moles, no gross abnormalities 07/05/2018 None Full Exam - General 1994 Integument inspection of skin Pigmentation: jaundice 07/05/2018 None Full Exam - General 1994 Neurologic deep tendon reflexes Overall: deep tendon reflexes intact 07/05/2018 None Full Exam - General 1994 Neurologic cranial nerves Overall: crainial nerves 2 - 12 grossly intact 07/05/2018 None Full Exam - General 1994 Psychiatric orientation/consciousness Overall: oriented to person, place and time 07/05/2018 None Full Exam - General 1994 Psychiatric mood and affect Overall: normal mood and affect 07/05/2018 None Full Exam - General 1994 Constitutional general appearance Development: well developed 03/18/2018 None Full Exam - General 1994 Constitutional general appearance Development: appears stated age 0803/18/2018 None Full Exam - General 1994 Constitutional general appearance Hygiene/Attention to Grooming: good hygiene 03/18/2018 None Full Exam - General 1994 Eyes conjunctiva /eyelids Overall: conjunctiva clear 03/18/2018 None Full Exam - General 1994 Eyes conjunctiva /eyelids Overall: cornea clear 03/18/2018 None Full Exam - General 1994 Eyes conjunctiva /eyelids Overall: eyelids normal 03/18/2018 None Full Exam - General 1994 Eyes pupils and irises Overall: pupils equal, round, reactive to light and accomodation 03/18/2018 None Full Exam - General 1994 Ears/Nose/Throat otoscopic exam Overall: external auditory canals clear 03/18/2018 None Full Exam - General 1994 Ears/Nose/Throat otoscopic exam Overall: tympanic membranes clear 03/18/2018 None Full Exam - General 1994 Ears/Nose/Throat internal nose Nasal cavity: ulceration 03/18/2018 None Full Exam - General 1995 Ears/Nose/Throat lips/teeth/gingiva Overall: benign lips 03/18/2018 None Full Exam - General 1995 Ears/Nose/Throat lips/teeth/gingiva Overall: normal dentition 03/18/2018 None Full Exam - General 1995 Ears/Nose/Throat oral cavity/pharynx/larynx Overall: oral mucosa clear 03/18/2018 None Full Exam - General 1995 Ears/Nose/Throat oral cavity/pharynx/larynx Overall: oropharyngeal mucosa clear 03/18/2018 None Full Exam - General 1995 Ears/Nose/Throat oral cavity/pharynx/larynx Overall: hypopharynx benign 03/18/2018 None Full Exam - General 1995 Ears/Nose/Throat oral cavity/pharynx/larynx Overall: no masses 03/18/2018 None Full Exam - General 1994 Respiratory auscultation Upper lung field: diminished 03/18/2018 None Full Exam - General 1994 Respiratory auscultation Lower lung field: diminished 03/18/2018 None Full Exam - General 1994 Respiratory respiratory effort/rhythm Overall: no retractions 03/18/2018 None Full Exam - General 1994 Respiratory respiratory effort/rhythm Overall: normal rate 03/18/2018 None Full Exam - General 1994 Cardiovascular extremities Overall: no clubbing 03/18/2018 None Full Exam - General 1994 Cardiovascular extremities Edema present: pitting 03/18/2018 None Full Exam - General 1994 Cardiovascular extremities Edema present: severity 1+ - 4 +: 2+ 03/18/2018 None Full Exam - General 1994 Cardiovascular auscultation of heart Overall: regular rate 03/18/2018 None Full Exam - General 1994 Cardiovascular auscultation of heart Overall: normal heart sounds 03/18/2018 None Full Exam - General 1994 Abdomen abdominal exam Overall: no tenderness 03/18/2018 None Full Exam - General 1994 Abdomen abdominal exam Overall: normal bowel sounds 03/18/2018 None Full Exam - General 1994 Abdomen abdominal exam Contour: protuberant 03/18/2018 None Full Exam - General 1994 Lymphatic neck nodes Overall: anterior cervical chain benign 03/18/2018 None Full Exam - General 1994 Lymphatic neck nodes Overall: posterior cervical chain benign 03/18/2018 None Full Exam - General 1994 Integument inspection of skin Overall: few scattered moles, no gross abnormalities 03/18/2018 None Full Exam - General 1994 Neurologic deep tendon reflexes Overall: deep tendon reflexes intact 03/18/2018 None Full Exam - General 1994 Neurologic cranial nerves Overall: crainial nerves 2 - 12 grossly intact 03/18/2018 None Full Exam - General 1994 Psychiatric orientation/consciousness Overall: oriented to person, place and time 03/18/2018 None Full Exam - General 1994 Psychiatric mood and affect Overall: normal mood and affect 03/18/2018 None Full Exam - General 1994 Musculoskeletal head and neck Overall: head atraumatic 03/18/2018 None Full Exam - General 1994 Musculoskeletal head and neck Overall: cervical spine benign 03/18/2018 None Full Exam - General 1994 Integument inspection of skin Pigmentation: jaundice 03/18/2018 None Full Exam - General 1994 Musculoskeletal upper extremity ROM - shoulder: crepitus 03/18/2018 None Full Exam - General 1994 Musculoskeletal upper extremity Muscle Strength/Tone - upper arm: biceps: atrophy 03/18/2018 but power is 3/5 Full Exam - General 1994 Musculoskeletal upper extremity Muscle Strength/Tone - upper arm: triceps: atrophy 03/18/2018 3/5 strength Full Exam - General 1994 Musculoskeletal lower extremity Muscle Strength/Tone - thigh: quadriceps: atrophy 03/18/2018 None Full Exam - General 1994 Musculoskeletal lower extremity Muscle Strength/Tone - thigh: hamstrings: atrophy 03/18/2018 None Full Exam - General 1994 Musculoskeletal spine, ribs and pelvis Posture: kyphosis 03/18/2018 None Full Exam - General 1994 Musculoskeletal spine, ribs and pelvis Posture: lordosis 03/18/2018 None Full Exam - General 1994 Constitutional general appearance Overall: well developed 01/26/2018 None Full Exam - General 1994 Eyes conjunctiva /eyelids Overall: conjunctiva clear 01/26/2018 None Full Exam - General 1994 Eyes conjunctiva /eyelids Overall: eyelids normal 01/26/2018 None Full Exam - General 1994 Ears/Nose/Throat lips/teeth/gingiva Overall: benign lips 01/26/2018 None Full Exam - General 1994 Respiratory respiratory effort/rhythm Overall: no retractions 01/26/2018 None Full Exam - General 1994 Respiratory respiratory effort/rhythm Overall: normal rate 01/26/2018 None Full Exam - General 1994 Musculoskeletal head and neck Overall: head atraumatic 01/26/2018 None Full Exam - General 1994 Neurologic cranial nerves Overall: crainial nerves 2 - 12 grossly intact 01/26/2018 None Full Exam - General 1994 Psychiatric orientation/consciousness Overall: oriented to person, place and time 01/26/2018 None Full Exam - General 1994 Psychiatric mood and affect Overall: normal mood and affect 01/26/2018 None Full Exam - General 1994 Constitutional general appearance Overall: in no acute distress 01/26/2018 None Full Exam - General 1994 Constitutional general appearance Development: well developed 01/06/2018 None Full Exam - General 1994 Constitutional general appearance Development: appears stated age 0501/06/2018 None Full Exam - General 1994 Constitutional general appearance Hygiene/Attention to Grooming: good hygiene 01/06/2018 None Full Exam - General 1994 Eyes conjunctiva /eyelids Overall: conjunctiva clear 01/06/2018 None Full Exam - General 1994 Eyes conjunctiva /eyelids Overall: cornea clear 01/06/2018 None Full Exam - General 1994 Eyes conjunctiva /eyelids Overall: eyelids normal 01/06/2018 None Full Exam - General 1994 Eyes pupils and irises Overall: pupils equal, round, reactive to light and accomodation 01/06/2018 None Full Exam - General 1994 Ears/Nose/Throat otoscopic exam Overall: external auditory canals clear 01/06/2018 None Full Exam - General 1994 Ears/Nose/Throat otoscopic exam Overall: tympanic membranes clear 01/06/2018 None Full Exam - General 1994 Ears/Nose/Throat internal nose Nasal cavity: ulceration 01/06/2018 None Full Exam - General 1994 Ears/Nose/Throat lips/teeth/gingiva Overall: benign lips 01/06/2018 None Full Exam - General 1994 Ears/Nose/Throat lips/teeth/gingiva Overall: normal dentition 01/06/2018 None Full Exam - General 1994 Ears/Nose/Throat oral cavity/pharynx/larynx Overall: oral mucosa clear 01/06/2018 None Full Exam - General 1994 Ears/Nose/Throat oral cavity/pharynx/larynx Overall: oropharyngeal mucosa clear 01/06/2018 None Full Exam - General 1994 Ears/Nose/Throat oral cavity/pharynx/larynx Overall: hypopharynx benign 01/06/2018 None Full Exam - General 1994 Ears/Nose/Throat oral cavity/pharynx/larynx Overall: no masses 01/06/2018 None Full Exam - General 1994 Respiratory auscultation Upper lung field: diminished 01/06/2018 None Full Exam - General 1994 Respiratory auscultation Lower lung field: diminished 01/06/2018 None Full Exam - General 1994 Respiratory respiratory effort/rhythm Overall: no retractions 01/06/2018 None Full Exam - General 1994 Respiratory respiratory effort/rhythm Overall: normal rate 01/06/2018 None Full Exam - General 1994 Cardiovascular extremities Overall: no clubbing 01/06/2018 None Full Exam - General 1994 Cardiovascular extremities Edema present: pitting 01/06/2018 None Full Exam - General 1994 Cardiovascular extremities Edema present: severity 1+ - 4 +: 2+ 01/06/2018 None Full Exam - General 1994 Cardiovascular auscultation of heart Overall: regular rate 01/06/2018 None Full Exam - General 1994 Cardiovascular auscultation of heart Overall: normal heart sounds 01/06/2018 None Full Exam - General 1994 Abdomen abdominal exam Overall: no tenderness 01/06/2018 None Full Exam - General 1994 Abdomen abdominal exam Overall: normal bowel sounds 01/06/2018 None Full Exam - General 1994 Abdomen abdominal exam Contour: protuberant 01/06/2018 None Full Exam - General 1994 Lymphatic neck nodes Overall: anterior cervical chain benign 01/06/2018 None Full Exam - General 1994 Lymphatic neck nodes Overall: posterior cervical chain benign 01/06/2018 None Full Exam - General 1994 Integument inspection of skin Overall: few scattered moles, no gross abnormalities 01/06/2018 None Full Exam - General 1994 Neurologic deep tendon reflexes Overall: deep tendon reflexes intact 01/06/2018 None Full Exam - General 1994 Neurologic cranial nerves Overall: crainial nerves 2 - 12 grossly intact 01/06/2018 None Full Exam - General 1994 Psychiatric orientation/consciousness Overall: oriented to person, place and time 01/06/2018 None Full Exam - General 1994 Psychiatric mood and affect Overall: normal mood and affect 01/06/2018 None Full Exam - General 1994 Constitutional general appearance Development: well developed 09/28/2017 None Full Exam - General 1994 Constitutional general appearance Development: appears stated age 0209/28/2017 None Full Exam - General 1994 Constitutional general appearance Hygiene/Attention to Grooming: good hygiene 09/28/2017 None Full Exam - General 1994 Eyes conjunctiva /eyelids Overall: conjunctiva clear 09/28/2017 None Full Exam - General 1994 Eyes conjunctiva /eyelids Overall: cornea clear 09/28/2017 None Full Exam - General 1994 Eyes conjunctiva /eyelids Overall: eyelids normal 09/28/2017 None Full Exam - General 1994 Eyes pupils and irises Overall: pupils equal, round, reactive to light and accomodation 09/28/2017 None Full Exam - General 1994 Ears/Nose/Throat otoscopic exam Overall: external auditory canals clear 09/28/2017 None Full Exam - General 1994 Ears/Nose/Throat otoscopic exam Overall: tympanic membranes clear 09/28/2017 None Full Exam - General 1994 Ears/Nose/Throat internal nose Nasal cavity: ulceration 09/28/2017 None Full Exam - General 1994 Ears/Nose/Throat lips/teeth/gingiva Overall: benign lips 09/28/2017 None Full Exam - General 1994 Ears/Nose/Throat lips/teeth/gingiva Overall: normal dentition 09/28/2017 None Full Exam - General 1994 Ears/Nose/Throat oral cavity/pharynx/larynx Overall: oral mucosa clear 09/28/2017 None Full Exam - General 1994 Ears/Nose/Throat oral cavity/pharynx/larynx Overall: oropharyngeal mucosa clear 09/28/2017 None Full Exam - General 1994 Ears/Nose/Throat oral cavity/pharynx/larynx Overall: hypopharynx benign 09/28/2017 None Full Exam - General 1994 Ears/Nose/Throat oral cavity/pharynx/larynx Overall: no masses 09/28/2017 None Full Exam - General 1994 Respiratory auscultation Upper lung field: diminished 09/28/2017 None Full Exam - General 1994 Respiratory auscultation Lower lung field: diminished 09/28/2017 None Full Exam - General 1994 Respiratory respiratory effort/rhythm Overall: no retractions 09/28/2017 None Full Exam - General 1994 Respiratory respiratory effort/rhythm Overall: normal rate 09/28/2017 None Full Exam - General 1994 Cardiovascular extremities Overall: no clubbing 09/28/2017 None Full Exam - General 1994 Cardiovascular extremities Edema present: pitting 09/28/2017 None Full Exam - General 1994 Cardiovascular extremities Edema present: severity 1+ - 4 +: 2+ 09/28/2017 None Full Exam - General 1994 Cardiovascular auscultation of heart Overall: regular rate 09/28/2017 None Full Exam - General 1994 Cardiovascular auscultation of heart Overall: normal heart sounds 09/28/2017 None Full Exam - General 1994 Abdomen abdominal exam Overall: no tenderness 09/28/2017 None Full Exam - General 1994 Abdomen abdominal exam Overall: normal bowel sounds 09/28/2017 None Full Exam - General 1994 Abdomen abdominal exam Contour: protuberant 09/28/2017 None Full Exam - General 1994 Lymphatic neck nodes Overall: anterior cervical chain benign 09/28/2017 None Full Exam - General 1994 Lymphatic neck nodes Overall: posterior cervical chain benign 09/28/2017 None Full Exam - General 1994 Integument inspection of skin Overall: few scattered moles, no gross abnormalities 09/28/2017 None Full Exam - General 1994 Neurologic deep tendon reflexes Overall: deep tendon reflexes intact 09/28/2017 None Full Exam - General 1994 Neurologic cranial nerves Overall: crainial nerves 2 - 12 grossly intact 09/28/2017 None Full Exam - General 1994 Psychiatric orientation/consciousness Overall: oriented to person, place and time 09/28/2017 None Full Exam - General 1994 Psychiatric mood and affect Overall: normal mood and affect 09/28/2017 None Full Exam - General 1994 Constitutional general appearance Development: well developed 07/29/2017 None Full Exam - General 1994 Constitutional general appearance Development: appears stated age 1207/29/2017 None Full Exam - General 1994 Constitutional general appearance Hygiene/Attention to Grooming: good hygiene 07/29/2017 None Full Exam - General 1994 Eyes conjunctiva /eyelids Overall: conjunctiva clear 07/29/2017 None Full Exam - General 1994 Eyes conjunctiva /eyelids Overall: cornea clear 07/29/2017 None Full Exam - General 1994 Eyes conjunctiva /eyelids Overall: eyelids normal 07/29/2017 None Full Exam - General 1994 Eyes pupils and irises Overall: pupils equal, round, reactive to light and accomodation 07/29/2017 None Full Exam - General 1994 Ears/Nose/Throat otoscopic exam Overall: external auditory canals clear 07/29/2017 None Full Exam - General 1994 Ears/Nose/Throat otoscopic exam Overall: tympanic membranes clear 07/29/2017 None Full Exam - General 1994 Ears/Nose/Throat internal nose Nasal cavity: ulceration 07/29/2017 None Full Exam - General 1994 Ears/Nose/Throat lips/teeth/gingiva Overall: benign lips 07/29/2017 None Full Exam - General 1994 Ears/Nose/Throat lips/teeth/gingiva Overall: normal dentition 07/29/2017 None Full Exam - General 1994 Ears/Nose/Throat oral cavity/pharynx/larynx Overall: oral mucosa clear 07/29/2017 None Full Exam - General 1994 Ears/Nose/Throat oral cavity/pharynx/larynx Overall: oropharyngeal mucosa clear 07/29/2017 None Full Exam - General 1994 Ears/Nose/Throat oral cavity/pharynx/larynx Overall: hypopharynx benign 07/29/2017 None Full Exam - General 1994 Ears/Nose/Throat oral cavity/pharynx/larynx Overall: no masses 07/29/2017 None Full Exam - General 1994 Respiratory auscultation Upper lung field: diminished 07/29/2017 None Full Exam - General 1994 Respiratory auscultation Lower lung field: diminished 07/29/2017 None Full Exam - General 1994 Respiratory respiratory effort/rhythm Overall: no retractions 07/29/2017 None Full Exam - General 1994 Respiratory respiratory effort/rhythm Overall: normal rate 07/29/2017 None Full Exam - General 1994 Cardiovascular extremities Overall: no clubbing 07/29/2017 None Full Exam - General 1994 Cardiovascular extremities Edema present: pitting 07/29/2017 None Full Exam - General 1994 Cardiovascular extremities Edema present: severity 1+ - 4 +: 2+ 07/29/2017 None Full Exam - General 1994 Cardiovascular auscultation of heart Overall: regular rate 07/29/2017 None Full Exam - General 1994 Cardiovascular auscultation of heart Overall: normal heart sounds 07/29/2017 None Full Exam - General 1994 Abdomen abdominal exam Overall: no tenderness 07/29/2017 None Full Exam - General 1994 Abdomen abdominal exam Overall: normal bowel sounds 07/29/2017 None Full Exam - General 1994 Abdomen abdominal exam Contour: protuberant 07/29/2017 None Full Exam - General 1994 Lymphatic neck nodes Overall: anterior cervical chain benign 07/29/2017 None Full Exam - General 1994 Lymphatic neck nodes Overall: posterior cervical chain benign 07/29/2017 None Full Exam - General 1994 Integument inspection of skin Overall: few scattered moles, no gross abnormalities 07/29/2017 None Full Exam - General 1994 Neurologic deep tendon reflexes Overall: deep tendon reflexes intact 07/29/2017 None Full Exam - General 1994 Neurologic cranial nerves Overall: crainial nerves 2 - 12 grossly intact 07/29/2017 None Full Exam - General 1994 Psychiatric orientation/consciousness Overall: oriented to person, place and time 07/29/2017 None Full Exam - General 1994 Psychiatric mood and affect Overall: normal mood and affect 07/29/2017 None Full Exam - General 1994 Constitutional general appearance Development: well developed 05/28/2017 None Full Exam - General 1994 Constitutional general appearance Development: appears stated age 1005/28/2017 None Full Exam - General 1994 Constitutional general appearance Hygiene/Attention to Grooming: good hygiene 05/28/2017 None Full Exam - General 1994 Eyes conjunctiva /eyelids Overall: conjunctiva clear 05/28/2017 None Full Exam - General 1994 Eyes conjunctiva /eyelids Overall: cornea clear 05/28/2017 None Full Exam - General 1994 Eyes conjunctiva /eyelids Overall: eyelids normal 05/28/2017 None Full Exam - General 1994 Eyes pupils and irises Overall: pupils equal, round, reactive to light and accomodation 05/28/2017 None Full Exam - General 1994 Ears/Nose/Throat otoscopic exam Overall: external auditory canals clear 05/28/2017 None Full Exam - General 1994 Ears/Nose/Throat otoscopic exam Overall: tympanic membranes clear 05/28/2017 None Full Exam - General 1994 Ears/Nose/Throat internal nose Nasal cavity: ulceration 05/28/2017 None Full Exam - General 1994 Ears/Nose/Throat lips/teeth/gingiva Overall: benign lips 05/28/2017 None Full Exam - General 1994 Ears/Nose/Throat lips/teeth/gingiva Overall: normal dentition 05/28/2017 None Full Exam - General 1994 Ears/Nose/Throat oral cavity/pharynx/larynx Overall: oral mucosa clear 05/28/2017 None Full Exam - General 1994 Ears/Nose/Throat oral cavity/pharynx/larynx Overall: oropharyngeal mucosa clear 05/28/2017 None Full Exam - General 1994 Ears/Nose/Throat oral cavity/pharynx/larynx Overall: hypopharynx benign 05/28/2017 None Full Exam - General 1994 Ears/Nose/Throat oral cavity/pharynx/larynx Overall: no masses 05/28/2017 None Full Exam - General 1994 Respiratory auscultation Upper lung field: diminished 05/28/2017 None Full Exam - General 1994 Respiratory auscultation Lower lung field: diminished 05/28/2017 None Full Exam - General 1994 Respiratory respiratory effort/rhythm Overall: no retractions 05/28/2017 None Full Exam - General 1994 Respiratory respiratory effort/rhythm Overall: normal rate 05/28/2017 None Full Exam - General 1994 Cardiovascular extremities Overall: no clubbing 05/28/2017 None Full Exam - General 1994 Cardiovascular extremities Edema present: pitting 05/28/2017 None Full Exam - General 1994 Cardiovascular extremities Edema present: severity 1+ - 4 +: 2+ 05/28/2017 None Full Exam - General 1994 Cardiovascular auscultation of heart Overall: regular rate 05/28/2017 None Full Exam - General 1994 Cardiovascular auscultation of heart Overall: normal heart sounds 05/28/2017 None Full Exam - General 1994 Abdomen abdominal exam Overall: no tenderness 05/28/2017 None Full Exam - General 1994 Abdomen abdominal exam Overall: normal bowel sounds 05/28/2017 None Full Exam - General 1994 Abdomen abdominal exam Contour: protuberant 05/28/2017 None Full Exam - General 1994 Lymphatic neck nodes Overall: anterior cervical chain benign 05/28/2017 None Full Exam - General 1994 Lymphatic neck nodes Overall: posterior cervical chain benign 05/28/2017 None Full Exam - General 1994 Integument inspection of skin Overall: few scattered moles, no gross abnormalities 05/28/2017 None Full Exam - General 1994 Neurologic deep tendon reflexes Overall: deep tendon reflexes intact 05/28/2017 None Full Exam - General 1994 Neurologic cranial nerves Overall: crainial nerves 2 - 12 grossly intact 05/28/2017 None Full Exam - General 1994 Psychiatric orientation/consciousness Overall: oriented to person, place and time 05/28/2017 None Full Exam - General 1994 Psychiatric mood and affect Overall: normal mood and affect 05/28/2017 None Full Exam - General 1994 Constitutional general appearance Development: well developed 04/02/2017 None Full Exam - General 1994 Constitutional general appearance Development: appears stated age 0804/02/2017 None Full Exam - General 1994 Constitutional general appearance Hygiene/Attention to Grooming: good hygiene 04/02/2017 None Full Exam - General 1994 Eyes conjunctiva /eyelids Overall: conjunctiva clear 04/02/2017 None Full Exam - General 1994 Eyes conjunctiva /eyelids Overall: cornea clear 04/02/2017 None Full Exam - General 1994 Eyes conjunctiva /eyelids Overall: eyelids normal 04/02/2017 None Full Exam - General 1994 Eyes pupils and irises Overall: pupils equal, round, reactive to light and accomodation 04/02/2017 None Full Exam - General 1994 Ears/Nose/Throat otoscopic exam Overall: external auditory canals clear 04/02/2017 None Full Exam - General 1994 Ears/Nose/Throat otoscopic exam Overall: tympanic membranes clear 04/02/2017 None Full Exam - General 1994 Ears/Nose/Throat lips/teeth/gingiva Overall: benign lips 04/02/2017 None Full Exam - General 1994 Ears/Nose/Throat lips/teeth/gingiva Overall: normal dentition 04/02/2017 None Full Exam - General 1994 Ears/Nose/Throat oral cavity/pharynx/larynx Overall: oral mucosa clear 04/02/2017 None Full Exam - General 1994 Ears/Nose/Throat oral cavity/pharynx/larynx Overall: oropharyngeal mucosa clear 04/02/2017 None Full Exam - General 1994 Ears/Nose/Throat oral cavity/pharynx/larynx Overall: hypopharynx benign 04/02/2017 None Full Exam - General 1994 Ears/Nose/Throat oral cavity/pharynx/larynx Overall: no masses 04/02/2017 None Full Exam - General 1994 Respiratory auscultation Upper lung field: diminished 04/02/2017 None Full Exam - General 1994 Respiratory auscultation Lower lung field: diminished 04/02/2017 None Full Exam - General 1994 Respiratory respiratory effort/rhythm Overall: no retractions 04/02/2017 None Full Exam - General 1994 Respiratory respiratory effort/rhythm Overall: normal rate 04/02/2017 None Full Exam - General 1994 Cardiovascular extremities Overall: no clubbing 04/02/2017 None Full Exam - General 1994 Cardiovascular extremities Edema present: pitting 04/02/2017 None Full Exam - General 1994 Cardiovascular extremities Edema present: severity 1+ - 4 +: 2+ 04/02/2017 None Full Exam - General 1994 Cardiovascular auscultation of heart Overall: regular rate 04/02/2017 None Full Exam - General 1994 Cardiovascular auscultation of heart Overall: normal heart sounds 04/02/2017 None Full Exam - General 1994 Abdomen abdominal exam Overall: no tenderness 04/02/2017 None Full Exam - General 1994 Abdomen abdominal exam Overall: normal bowel sounds 04/02/2017 None Full Exam - General 1994 Abdomen abdominal exam Contour: protuberant 04/02/2017 None Full Exam - General 1994 Psychiatric orientation/consciousness Overall: oriented to person, place and time 04/02/2017 None Full Exam - General 1994 Psychiatric mood and affect Overall: normal mood and affect 04/02/2017 None Full Exam - General 1994 Ears/Nose/Throat internal nose Nasal cavity: ulceration 04/02/2017 None Full Exam - General 1994 Constitutional general appearance Development: well developed 03/04/2017 None Full Exam - General 1994 Constitutional general appearance Development: appears stated age 0703/04/2017 None Full Exam - General 1994 Constitutional general appearance Hygiene/Attention to Grooming: good hygiene 03/04/2017 None Full Exam - General 1994 Eyes conjunctiva /eyelids Overall: conjunctiva clear 03/04/2017 None Full Exam - General 1994 Eyes conjunctiva /eyelids Overall: cornea clear 03/04/2017 None Full Exam - General 1994 Eyes conjunctiva /eyelids Overall: eyelids normal 03/04/2017 None Full Exam - General 1994 Eyes pupils and irises Overall: pupils equal, round, reactive to light and accomodation 03/04/2017 None Full Exam - General 1994 Ears/Nose/Throat otoscopic exam Overall: external auditory canals clear 03/04/2017 None Full Exam - General 1994 Ears/Nose/Throat otoscopic exam Overall: tympanic membranes clear 03/04/2017 None Full Exam - General 1994 Ears/Nose/Throat internal nose Nasal cavity: ulceration 03/04/2017 None Full Exam - General 1994 Ears/Nose/Throat lips/teeth/gingiva Overall: benign lips 03/04/2017 None Full Exam - General 1994 Ears/Nose/Throat lips/teeth/gingiva Overall: normal dentition 03/04/2017 None Full Exam - General 1994 Ears/Nose/Throat oral cavity/pharynx/larynx Overall: oral mucosa clear 03/04/2017 None Full Exam - General 1994 Ears/Nose/Throat oral cavity/pharynx/larynx Overall: oropharyngeal mucosa clear 03/04/2017 None Full Exam - General 1994 Ears/Nose/Throat oral cavity/pharynx/larynx Overall: hypopharynx benign 03/04/2017 None Full Exam - General 1994 Ears/Nose/Throat oral cavity/pharynx/larynx Overall: no masses 03/04/2017 None Full Exam - General 1994 Respiratory auscultation Upper lung field: diminished 03/04/2017 None Full Exam - General 1994 Respiratory auscultation Lower lung field: diminished 03/04/2017 None Full Exam - General 1994 Respiratory respiratory effort/rhythm Overall: no retractions 03/04/2017 None Full Exam - General 1994 Respiratory respiratory effort/rhythm Overall: normal rate 03/04/2017 None Full Exam - General 1994 Cardiovascular extremities Overall: no clubbing 03/04/2017 None Full Exam - General 1994 Cardiovascular extremities Edema present: pitting 03/04/2017 None Full Exam - General 1994 Cardiovascular extremities Edema present: severity 1+ - 4 +: 2+ 03/04/2017 None Full Exam - General 1994 Cardiovascular auscultation of heart Overall: regular rate 03/04/2017 None Full Exam - General 1994 Cardiovascular auscultation of heart Overall: normal heart sounds 03/04/2017 None Full Exam - General 1994 Abdomen abdominal exam Overall: no tenderness 03/04/2017 None Full Exam - General 1994 Abdomen abdominal exam Overall: normal bowel sounds 03/04/2017 None Full Exam - General 1994 Abdomen abdominal exam Contour: protuberant 03/04/2017 None Full Exam - General 1994 Integument inspection of skin Overall: few scattered moles, no gross abnormalities 03/04/2017 None Full Exam - General 1994 Neurologic deep tendon reflexes Overall: deep tendon reflexes intact 03/04/2017 None Full Exam - General 1994 Neurologic cranial nerves Overall: crainial nerves 2 - 12 grossly intact 03/04/2017 None Full Exam - General 1994 Psychiatric orientation/consciousness Overall: oriented to person, place and time 03/04/2017 None Full Exam - General 1994 Psychiatric mood and affect Overall: normal mood and affect 03/04/2017 None Full Exam - General 1994 Lymphatic neck nodes Overall: anterior cervical chain benign 03/04/2017 None Full Exam - General 1994 Lymphatic neck nodes Overall: posterior cervical chain benign 03/04/2017 None Full Exam - General 1994 Constitutional general appearance Development: well developed 02/05/2017 None Full Exam - General 1994 Constitutional general appearance Development: appears stated age 0602/05/2017 None Full Exam - General 1994 Constitutional general appearance Hygiene/Attention to Grooming: good hygiene 02/05/2017 None Full Exam - General 1994 Eyes conjunctiva /eyelids Overall: conjunctiva clear 02/05/2017 None Full Exam - General 1994 Eyes conjunctiva /eyelids Overall: cornea clear 02/05/2017 None Full Exam - General 1994 Eyes conjunctiva /eyelids Overall: eyelids normal 02/05/2017 None Full Exam - General 1994 Eyes pupils and irises Overall: pupils equal, round, reactive to light and accomodation 02/05/2017 None Full Exam - General 1994 Ears/Nose/Throat otoscopic exam Overall: external auditory canals clear 02/05/2017 None Full Exam - General 1994 Ears/Nose/Throat otoscopic exam Overall: tympanic membranes clear 02/05/2017 None Full Exam - General 1994 Ears/Nose/Throat internal nose Nasal cavity: ulceration 02/05/2017 None Full Exam - General 1994 Ears/Nose/Throat lips/teeth/gingiva Overall: benign lips 02/05/2017 None Full Exam - General 1994 Ears/Nose/Throat lips/teeth/gingiva Overall: normal dentition 02/05/2017 None Full Exam - General 1994 Ears/Nose/Throat oral cavity/pharynx/larynx Overall: oral mucosa clear 02/05/2017 None Full Exam - General 1994 Ears/Nose/Throat oral cavity/pharynx/larynx Overall: oropharyngeal mucosa clear 02/05/2017 None Full Exam - General 1994 Ears/Nose/Throat oral cavity/pharynx/larynx Overall: hypopharynx benign 02/05/2017 None Full Exam - General 1994 Ears/Nose/Throat oral cavity/pharynx/larynx Overall: no masses 02/05/2017 None Full Exam - General 1994 Respiratory auscultation Upper lung field: diminished 02/05/2017 None Full Exam - General 1994 Respiratory auscultation Lower lung field: diminished 02/05/2017 None Full Exam - General 1994 Respiratory respiratory effort/rhythm Overall: no retractions 02/05/2017 None Full Exam - General 1994 Respiratory respiratory effort/rhythm Overall: normal rate 02/05/2017 None Full Exam - General 1994 Cardiovascular extremities Overall: no clubbing 02/05/2017 None Full Exam - General 1994 Cardiovascular auscultation of heart Overall: regular rate 02/05/2017 None Full Exam - General 1994 Cardiovascular auscultation of heart Overall: normal heart sounds 02/05/2017 None Full Exam - General 1994 Abdomen abdominal exam Overall: no tenderness 02/05/2017 None Full Exam - General 1994 Abdomen abdominal exam Overall: normal bowel sounds 02/05/2017 None Full Exam - General 1994 Abdomen abdominal exam Contour: protuberant 02/05/2017 None Full Exam - General 1994 Integument inspection of skin Overall: few scattered moles, no gross abnormalities 02/05/2017 None Full Exam - General 1994 Neurologic deep tendon reflexes Overall: deep tendon reflexes intact 02/05/2017 None Full Exam - General 1994 Neurologic cranial nerves Overall: crainial nerves 2 - 12 grossly intact 02/05/2017 None Full Exam - General 1994 Psychiatric orientation/consciousness Overall: oriented to person, place and time 02/05/2017 None Full Exam - General 1994 Psychiatric mood and affect Overall: normal mood and affect 02/05/2017 None Full Exam - General 1994 Cardiovascular extremities Edema present: pitting 02/05/2017 None Full Exam - General 1994 Cardiovascular extremities Edema present: severity 1+ - 4 +: 2+ 02/05/2017 None Full Exam - ENT Constitutional general appearance Overall: well developed 12/22/2016 None Full Exam - ENT Constitutional general appearance Evidence of Distress: anxious 12/22/2016 None Full Exam - ENT Ears/Nose/Throat otoscopic exam Overall: external auditory canals normal 12/22/2016 None Full Exam - ENT Ears/Nose/Throat otoscopic exam Overall: tympanic membranes normal 12/22/2016 None Full Exam - ENT Ears/Nose/Throat oropharynx Overall: oral mucosa clear 12/22/2016 None Full Exam - ENT Ears/Nose/Throat lips/ teeth/gingiva Overall: benign lips 12/22/2016 None Full Exam - ENT Respiratory inspection Overall: no retractions 12/22/2016 None Full Exam - ENT Respiratory inspection Overall: normal rate None Full Exam - ENT Respiratory auscultation Diffuse: diminished None Full Exam - ENT Cardiovascular auscultation of heart Overall: regular rate 12/22/2016 None Full Exam - ENT Cardiovascular auscultation of heart Overall: normal heart sounds 12/22/2016 None Full Exam - ENT Respiratory auscultation Right lower lung field: expiratory wheezes 12/22/2016 None Full Exam - ENT Neurologic mood and affect Overall: normal affect 12/22/2016 None Full Exam - ENT Neurologic mood and affect Overall: normal mood 12/22/2016 None Full Exam - General 1994 Constitutional general appearance Development: well developed 09/08/2016 sunken in temples and new protrusion of upper maxillary region Full Exam - General 1994 Constitutional general appearance Hygiene/Attention to Grooming: good hygiene 09/08/2016 None Full Exam - General 1994 Eyes conjunctiva /eyelids Overall: conjunctiva clear 09/08/2016 None Full Exam - General 1994 Eyes conjunctiva /eyelids Overall: cornea clear 09/08/2016 None Full Exam - General 1994 Eyes conjunctiva /eyelids Overall: eyelids normal 09/08/2016 None Full Exam - General 1994 Eyes pupils and irises Overall: pupils equal, round, reactive to light and accomodation 09/08/2016 None Full Exam - General 1994 Ears/Nose/Throat otoscopic exam Overall: external auditory canals clear 09/08/2016 None Full Exam - General 1994 Ears/Nose/Throat otoscopic exam Overall: tympanic membranes clear 09/08/2016 None Full Exam - General 1994 Ears/Nose/Throat internal nose Nasal cavity: ulceration 09/08/2016 None Full Exam - General 1994 Ears/Nose/Throat lips/teeth/gingiva Overall: benign lips 09/08/2016 None Full Exam - General 1995 Ears/Nose/Throat lips/teeth/gingiva Overall: normal dentition 09/08/2016 None Full Exam - General 1994 Ears/Nose/Throat oral cavity/pharynx/larynx Overall: oral mucosa clear 09/08/2016 None Full Exam - General 1994 Ears/Nose/Throat oral cavity/pharynx/larynx Overall: oropharyngeal mucosa clear 09/08/2016 None Full Exam - General 1994 Ears/Nose/Throat oral cavity/pharynx/larynx Overall: hypopharynx benign 09/08/2016 None Full Exam - General 1994 Ears/Nose/Throat oral cavity/pharynx/larynx Overall: no masses 09/08/2016 None Full Exam - General 1994 Respiratory auscultation Upper lung field: diminished 09/08/2016 None Full Exam - General 1994 Respiratory auscultation Lower lung field: diminished 09/08/2016 None Full Exam - General 1994 Respiratory respiratory effort/rhythm Overall: no retractions 09/08/2016 None Full Exam - General 1994 Respiratory respiratory effort/rhythm Overall: normal rate 09/08/2016 None Full Exam - General 1994 Cardiovascular extremities Overall: no clubbing 09/08/2016 None Full Exam - General 1994 Cardiovascular auscultation of heart Overall: regular rate 09/08/2016 None Full Exam - General 1994 Cardiovascular auscultation of heart Overall: normal heart sounds 09/08/2016 None Full Exam - General 1994 Neurologic deep tendon reflexes Overall: deep tendon reflexes intact 09/08/2016 None Full Exam - General 1994 Neurologic cranial nerves Overall: crainial nerves 2 - 12 grossly intact 09/08/2016 None Full Exam - General 1994 Psychiatric orientation/consciousness Overall: oriented to person, place and time 09/08/2016 None Full Exam - General 1994 Psychiatric mood and affect Overall: normal mood and affect 09/08/2016 None Full Exam - General 1994 Abdomen abdominal exam Bowel sounds: hypoactive 09/08/2016 None Full Exam - General 1994 Abdomen abdominal exam Contour: protuberant 09/08/2016 None Full Exam - General 1994 Abdomen abdominal exam Percussion: fluid wave 09/08/2016 None Full Exam - General 1994 Constitutional general appearance Development: appears older than stated age 0109/08/2016 None Full Exam - General 1994 Constitutional general appearance Development: well developed 08/19/2016 None Full Exam - General 1994 Constitutional general appearance Development: appears stated age 0108/19/2016 None Full Exam - General 1994 Constitutional general appearance Hygiene/Attention to Grooming: good hygiene 08/19/2016 None Full Exam - General 1994 Eyes conjunctiva /eyelids Overall: conjunctiva clear 08/19/2016 None Full Exam - General 1994 Eyes conjunctiva /eyelids Overall: cornea clear 08/19/2016 None Full Exam - General 1994 Eyes conjunctiva /eyelids Overall: eyelids normal 08/19/2016 None Full Exam - General 1994 Eyes pupils and irises Overall: pupils equal, round, reactive to light and accomodation 08/19/2016 None Full Exam - General 1994 Ears/Nose/Throat otoscopic exam Overall: external auditory canals clear 08/19/2016 None Full Exam - General 1994 Ears/Nose/Throat otoscopic exam Overall: tympanic membranes clear 08/19/2016 None Full Exam - General 1994 Ears/Nose/Throat internal nose Nasal cavity: ulceration 08/19/2016 None Full Exam - General 1994 Ears/Nose/Throat lips/teeth/gingiva Overall: benign lips 08/19/2016 None Full Exam - General 1994 Ears/Nose/Throat lips/teeth/gingiva Overall: normal dentition 08/19/2016 None Full Exam - General 1994 Ears/Nose/Throat oral cavity/pharynx/larynx Overall: oral mucosa clear 08/19/2016 None Full Exam - General 1994 Ears/Nose/Throat oral cavity/pharynx/larynx Overall: oropharyngeal mucosa clear 08/19/2016 None Full Exam - General 1994 Ears/Nose/Throat oral cavity/pharynx/larynx Overall: hypopharynx benign 08/19/2016 None Full Exam - General 1994 Ears/Nose/Throat oral cavity/pharynx/larynx Overall: no masses 08/19/2016 None Full Exam - General 1994 Respiratory auscultation Upper lung field: diminished 08/19/2016 None Full Exam - General 1994 Respiratory auscultation Lower lung field: diminished 08/19/2016 None Full Exam - General 1994 Respiratory respiratory effort/rhythm Overall: no retractions 08/19/2016 None Full Exam - General 1994 Respiratory respiratory effort/rhythm Overall: normal rate 08/19/2016 None Full Exam - General 1994 Cardiovascular extremities Overall: no clubbing 08/19/2016 None Full Exam - General 1994 Cardiovascular auscultation of heart Overall: regular rate 08/19/2016 None Full Exam - General 1994 Cardiovascular auscultation of heart Overall: normal heart sounds 08/19/2016 None Full Exam - General 1994 Abdomen abdominal exam Overall: no tenderness 08/19/2016 None Full Exam - General 1994 Abdomen abdominal exam Overall: normal bowel sounds 08/19/2016 None Full Exam - General 1994 Integument inspection of skin Overall: few scattered moles, no gross abnormalities 08/19/2016 None Full Exam - General 1994 Neurologic deep tendon reflexes Overall: deep tendon reflexes intact 08/19/2016 None Full Exam - General 1994 Neurologic cranial nerves Overall: crainial nerves 2 - 12 grossly intact 08/19/2016 None Full Exam - General 1994 Psychiatric orientation/consciousness Overall: oriented to person, place and time 08/19/2016 None Full Exam - General 1994 Psychiatric mood and affect Overall: normal mood and affect 08/19/2016 None Full Exam - General 1994 Abdomen abdominal exam Contour: protuberant 08/19/2016 None Full Exam - General 1994 Constitutional general appearance Development: well developed 07/21/2016 None Full Exam - General 1994 Constitutional general appearance Development: appears stated age 1207/21/2016 None Full Exam - General 1994 Constitutional general appearance Hygiene/Attention to Grooming: good hygiene 07/21/2016 None Full Exam - General 1994 Eyes conjunctiva /eyelids Overall: conjunctiva clear 07/21/2016 None Full Exam - General 1994 Eyes conjunctiva /eyelids Overall: cornea clear 07/21/2016 None Full Exam - General 1994 Eyes conjunctiva /eyelids Overall: eyelids normal 07/21/2016 None Full Exam - General 1994 Eyes pupils and irises Overall: pupils equal, round, reactive to light and accomodation 07/21/2016 None Full Exam - General 1994 Ears/Nose/Throat otoscopic exam Overall: external auditory canals clear 07/21/2016 None Full Exam - General 1994 Ears/Nose/Throat otoscopic exam Overall: tympanic membranes clear 07/21/2016 None Full Exam - General 1994 Ears/Nose/Throat internal nose Nasal cavity: ulceration 07/21/2016 None Full Exam - General 1994 Ears/Nose/Throat lips/teeth/gingiva Overall: benign lips 07/21/2016 None Full Exam - General 1994 Ears/Nose/Throat lips/teeth/gingiva Overall: normal dentition 07/21/2016 None Full Exam - General 1994 Ears/Nose/Throat oral cavity/pharynx/larynx Overall: oral mucosa clear 07/21/2016 None Full Exam - General 1994 Ears/Nose/Throat oral cavity/pharynx/larynx Overall: oropharyngeal mucosa clear 07/21/2016 None Full Exam - General 1994 Ears/Nose/Throat oral cavity/pharynx/larynx Overall: hypopharynx benign 07/21/2016 None Full Exam - General 1994 Ears/Nose/Throat oral cavity/pharynx/larynx Overall: no masses 07/21/2016 None Full Exam - General 1994 Respiratory auscultation Upper lung field: diminished 07/21/2016 None Full Exam - General 1994 Respiratory auscultation Lower lung field: diminished 07/21/2016 None Full Exam - General 1994 Respiratory respiratory effort/rhythm Overall: no retractions 07/21/2016 None Full Exam - General 1994 Respiratory respiratory effort/rhythm Overall: normal rate 07/21/2016 None Full Exam - General 1994 Cardiovascular extremities Overall: no clubbing 07/21/2016 None Full Exam - General 1994 Cardiovascular auscultation of heart Overall: regular rate 07/21/2016 None Full Exam - General 1994 Cardiovascular auscultation of heart Overall: normal heart sounds 07/21/2016 None Full Exam - General 1994 Abdomen abdominal exam Overall: no tenderness 07/21/2016 None Full Exam - General 1994 Abdomen abdominal exam Overall: normal bowel sounds 07/21/2016 None Full Exam - General 1994 Integument inspection of skin Overall: few scattered moles, no gross abnormalities 07/21/2016 None Full Exam - General 1994 Neurologic deep tendon reflexes Overall: deep tendon reflexes intact 07/21/2016 None Full Exam - General 1994 Neurologic cranial nerves Overall: crainial nerves 2 - 12 grossly intact 07/21/2016 None Full Exam - General 1994 Psychiatric orientation/consciousness Overall: oriented to person, place and time 07/21/2016 None Full Exam - General 1994 Psychiatric mood and affect Overall: normal mood and affect 07/21/2016 None Full Exam - General 1994 Constitutional general appearance Development: well developed 04/22/2016 None Full Exam - General 1994 Constitutional general appearance Development: appears stated age 0904/22/2016 None Full Exam - General 1994 Constitutional general appearance Hygiene/Attention to Grooming: good hygiene 04/22/2016 None Full Exam - General 1994 Eyes conjunctiva /eyelids Overall: conjunctiva clear 04/22/2016 None Full Exam - General 1994 Eyes conjunctiva /eyelids Overall: cornea clear 04/22/2016 None Full Exam - General 1994 Eyes conjunctiva /eyelids Overall: eyelids normal 04/22/2016 None Full Exam - General 1994 Eyes pupils and irises Overall: pupils equal, round, reactive to light and accomodation 04/22/2016 None Full Exam - General 1994 Ears/Nose/Throat otoscopic exam Overall: external auditory canals clear 04/22/2016 None Full Exam - General 1994 Ears/Nose/Throat otoscopic exam Overall: tympanic membranes clear 04/22/2016 None Full Exam - General 1994 Ears/Nose/Throat internal nose Nasal cavity: ulceration 04/22/2016 None Full Exam - General 1994 Ears/Nose/Throat lips/teeth/gingiva Overall: benign lips 04/22/2016 None Full Exam - General 1994 Ears/Nose/Throat lips/teeth/gingiva Overall: normal dentition 04/22/2016 None Full Exam - General 1994 Ears/Nose/Throat oral cavity/pharynx/larynx Overall: oral mucosa clear 04/22/2016 None Full Exam - General 1994 Ears/Nose/Throat oral cavity/pharynx/larynx Overall: oropharyngeal mucosa clear 04/22/2016 None Full Exam - General 1994 Ears/Nose/Throat oral cavity/pharynx/larynx Overall: hypopharynx benign 04/22/2016 None Full Exam - General 1994 Ears/Nose/Throat oral cavity/pharynx/larynx Overall: no masses 04/22/2016 None Full Exam - General 1994 Respiratory auscultation Upper lung field: diminished 04/22/2016 None Full Exam - General 1994 Respiratory auscultation Lower lung field: diminished 04/22/2016 None Full Exam - General 1994 Respiratory respiratory effort/rhythm Overall: no retractions 04/22/2016 None Full Exam - General 1994 Respiratory respiratory effort/rhythm Overall: normal rate 04/22/2016 None Full Exam - General 1994 Cardiovascular extremities Overall: no clubbing 04/22/2016 None Full Exam - General 1994 Cardiovascular auscultation of heart Overall: regular rate 04/22/2016 None Full Exam - General 1994 Cardiovascular auscultation of heart Overall: normal heart sounds 04/22/2016 None Full Exam - General 1994 Abdomen abdominal exam Overall: no tenderness 04/22/2016 None Full Exam - General 1994 Abdomen abdominal exam Overall: normal bowel sounds 04/22/2016 None Full Exam - General 1994 Integument inspection of skin Overall: few scattered moles, no gross abnormalities 04/22/2016 None Full Exam - General 1994 Neurologic deep tendon reflexes Overall: deep tendon reflexes intact 04/22/2016 None Full Exam - General 1994 Neurologic cranial nerves Overall: crainial nerves 2 - 12 grossly intact 04/22/2016 None Full Exam - General 1994 Psychiatric orientation/consciousness Overall: oriented to person, place and time 04/22/2016 None Full Exam - General 1994 Psychiatric mood and affect Overall: normal mood and affect 04/22/2016 None Full Exam - General 1994 Constitutional general appearance Development: well developed 01/22/2016 None Full Exam - General 1994 Constitutional general appearance Development: appears stated age 0601/22/2016 None Full Exam - General 1994 Constitutional general appearance Hygiene/Attention to Grooming: good hygiene 01/22/2016 None Full Exam - General 1994 Eyes conjunctiva /eyelids Overall: conjunctiva clear 01/22/2016 None Full Exam - General 1994 Eyes conjunctiva /eyelids Overall: cornea clear 01/22/2016 None Full Exam - General 1994 Eyes conjunctiva /eyelids Overall: eyelids normal 01/22/2016 None Full Exam - General 1994 Eyes pupils and irises Overall: pupils equal, round, reactive to light and accomodation 01/22/2016 None Full Exam - General 1994 Ears/Nose/Throat otoscopic exam Overall: external auditory canals clear 01/22/2016 None Full Exam - General 1994 Ears/Nose/Throat otoscopic exam Overall: tympanic membranes clear 01/22/2016 None Full Exam - General 1994 Ears/Nose/Throat internal nose Nasal cavity: ulceration 01/22/2016 None Full Exam - General 1994 Ears/Nose/Throat lips/teeth/gingiva Overall: benign lips 01/22/2016 None Full Exam - General 1994 Ears/Nose/Throat lips/teeth/gingiva Overall: normal dentition 01/22/2016 None Full Exam - General 1994 Ears/Nose/Throat oral cavity/pharynx/larynx Overall: oral mucosa clear 01/22/2016 None Full Exam - General 1994 Ears/Nose/Throat oral cavity/pharynx/larynx Overall: oropharyngeal mucosa clear 01/22/2016 None Full Exam - General 1994 Ears/Nose/Throat oral cavity/pharynx/larynx Overall: hypopharynx benign 01/22/2016 None Full Exam - General 1994 Ears/Nose/Throat oral cavity/pharynx/larynx Overall: no masses 01/22/2016 None Full Exam - General 1994 Respiratory auscultation Upper lung field: diminished 01/22/2016 None Full Exam - General 1994 Respiratory auscultation Lower lung field: diminished 01/22/2016 None Full Exam - General 1994 Respiratory respiratory effort/rhythm Overall: no retractions 01/22/2016 None Full Exam - General 1994 Respiratory respiratory effort/rhythm Overall: normal rate 01/22/2016 None Full Exam - General 1994 Cardiovascular extremities Overall: no clubbing 01/22/2016 None Full Exam - General 1994 Cardiovascular auscultation of heart Overall: regular rate 01/22/2016 None Full Exam - General 1994 Cardiovascular auscultation of heart Overall: normal heart sounds 01/22/2016 None Full Exam - General 1994 Abdomen abdominal exam Overall: no tenderness 01/22/2016 None Full Exam - General 1994 Abdomen abdominal exam Overall: normal bowel sounds 01/22/2016 None Full Exam - General 1994 Integument inspection of skin Overall: few scattered moles, no gross abnormalities 01/22/2016 None Full Exam - General 1994 Neurologic deep tendon reflexes Overall: deep tendon reflexes intact 01/22/2016 None Full Exam - General 1994 Neurologic cranial nerves Overall: crainial nerves 2 - 12 grossly intact 01/22/2016 None Full Exam - General 1994 Psychiatric orientation/consciousness Overall: oriented to person, place and time 01/22/2016 None Full Exam - General 1994 Psychiatric mood and affect Overall: normal mood and affect 01/22/2016 None Full Exam - General 1994 Constitutional general appearance Development: well developed 01/04/2016 None Full Exam - General 1994 Constitutional general appearance Development: appears stated age 0501/04/2016 None Full Exam - General 1994 Constitutional general appearance Hygiene/Attention to Grooming: good hygiene 01/04/2016 None Full Exam - General 1994 Eyes conjunctiva /eyelids Overall: conjunctiva clear 01/04/2016 None Full Exam - General 1994 Eyes conjunctiva /eyelids Overall: cornea clear 01/04/2016 None Full Exam - General 1994 Eyes conjunctiva /eyelids Overall: eyelids normal 01/04/2016 None Full Exam - General 1994 Ears/Nose/Throat lips/teeth/gingiva Overall: benign lips 01/04/2016 None Full Exam - General 1994 Ears/Nose/Throat lips/teeth/gingiva Overall: normal dentition 01/04/2016 None Full Exam - General 1994 Ears/Nose/Throat oral cavity/pharynx/larynx Overall: oral mucosa clear 01/04/2016 None Full Exam - General 1994 Respiratory auscultation Upper lung field: diminished 01/04/2016 None Full Exam - General 1994 Respiratory auscultation Lower lung field: diminished 01/04/2016 None Full Exam - General 1994 Respiratory respiratory effort/rhythm Overall: no retractions 01/04/2016 None Full Exam - General 1994 Respiratory respiratory effort/rhythm Overall: normal rate 01/04/2016 None Full Exam - General 1994 Cardiovascular extremities Overall: no clubbing 01/04/2016 None Full Exam - General 1994 Cardiovascular auscultation of heart Overall: regular rate 01/04/2016 None Full Exam - General 1994 Cardiovascular auscultation of heart Overall: normal heart sounds 01/04/2016 None Full Exam - General 1994 Abdomen abdominal exam Overall: no tenderness 01/04/2016 None Full Exam - General 1994 Abdomen abdominal exam Overall: normal bowel sounds 01/04/2016 None Full Exam - General 1994 Integument inspection of skin Overall: no rash, lesions 01/04/2016 None Full Exam - General 1994 Neurologic cranial nerves Overall: crainial nerves 2 - 12 grossly intact 01/04/2016 None Full Exam - General 1994 Psychiatric orientation/consciousness Overall: oriented to person, place and time 01/04/2016 None Full Exam - General 1994 Psychiatric mood and affect Overall: normal mood and affect 01/04/2016 None Full Exam - General 1994 Constitutional general appearance Development: well developed 11/16/2015 None Full Exam - General 1994 Constitutional general appearance Development: appears stated age 0411/16/2015 None Full Exam - General 1994 Constitutional general appearance Hygiene/Attention to Grooming: good hygiene 11/16/2015 None Full Exam - General 1994 Eyes conjunctiva /eyelids Overall: conjunctiva clear 11/16/2015 None Full Exam - General 1994 Eyes conjunctiva /eyelids Overall: cornea clear 11/16/2015 None Full Exam - General 1994 Eyes conjunctiva /eyelids Overall: eyelids normal 11/16/2015 None Full Exam - General 1994 Eyes pupils and irises Overall: pupils equal, round, reactive to light and accomodation 11/16/2015 None Full Exam - General 1994 Ears/Nose/Throat otoscopic exam Overall: external auditory canals clear 11/16/2015 None Full Exam - General 1994 Ears/Nose/Throat otoscopic exam Overall: tympanic membranes clear 11/16/2015 None Full Exam - General 1994 Ears/Nose/Throat lips/teeth/gingiva Overall: benign lips 11/16/2015 None Full Exam - General 1994 Ears/Nose/Throat lips/teeth/gingiva Overall: normal dentition 11/16/2015 None Full Exam - General 1994 Ears/Nose/Throat oral cavity/pharynx/larynx Overall: oral mucosa clear 11/16/2015 None Full Exam - General 1994 Ears/Nose/Throat oral cavity/pharynx/larynx Overall: oropharyngeal mucosa clear 11/16/2015 None Full Exam - General 1994 Ears/Nose/Throat oral cavity/pharynx/larynx Overall: no masses 11/16/2015 None Full Exam - General 1994 Respiratory auscultation Upper lung field: diminished 11/16/2015 None Full Exam - General 1994 Respiratory auscultation Lower lung field: diminished 11/16/2015 None Full Exam - General 1994 Respiratory respiratory effort/rhythm Overall: no retractions 11/16/2015 None Full Exam - General 1994 Respiratory respiratory effort/rhythm Overall: normal rate 11/16/2015 None Full Exam - General 1994 Cardiovascular extremities Overall: no clubbing 11/16/2015 None Full Exam - General 1994 Cardiovascular auscultation of heart Overall: regular rate 11/16/2015 None Full Exam - General 1994 Cardiovascular auscultation of heart Overall: normal heart sounds 11/16/2015 None Full Exam - General 1994 Abdomen abdominal exam Overall: no tenderness 11/16/2015 None Full Exam - General 1994 Abdomen abdominal exam Overall: normal bowel sounds 11/16/2015 None Full Exam - General 1994 Neurologic cranial nerves Overall: crainial nerves 2 - 12 grossly intact 11/16/2015 None Full Exam - General 1994 Psychiatric orientation/consciousness Overall: oriented to person, place and time 11/16/2015 None Full Exam - General 1994 Psychiatric mood and affect Overall: normal mood and affect 11/16/2015 None Full Exam - General 1994 Integument inspection of skin Overall: no rash, lesions 11/16/2015 None Full Exam - General 1994 Constitutional general appearance Development: well developed 10/23/2015 None Full Exam - General 1994 Constitutional general appearance Development: appears stated age 0310/23/2015 None Full Exam - General 1994 Constitutional general appearance Hygiene/Attention to Grooming: good hygiene 10/23/2015 None Full Exam - General 1994 Eyes conjunctiva /eyelids Overall: conjunctiva clear 10/23/2015 None Full Exam - General 1994 Eyes conjunctiva /eyelids Overall: cornea clear 10/23/2015 None Full Exam - General 1994 Eyes conjunctiva /eyelids Overall: eyelids normal 10/23/2015 None Full Exam - General 1994 Eyes pupils and irises Overall: pupils equal, round, reactive to light and accomodation 10/23/2015 None Full Exam - General 1994 Ears/Nose/Throat otoscopic exam Overall: external auditory canals clear 10/23/2015 None Full Exam - General 1994 Ears/Nose/Throat otoscopic exam Overall: tympanic membranes clear 10/23/2015 None Full Exam - General 1994 Ears/Nose/Throat lips/teeth/gingiva Overall: benign lips 10/23/2015 None Full Exam - General 1994 Ears/Nose/Throat lips/teeth/gingiva Overall: normal dentition 10/23/2015 None Full Exam - General 1994 Ears/Nose/Throat oral cavity/pharynx/larynx Overall: oral mucosa clear 10/23/2015 None Full Exam - General 1994 Ears/Nose/Throat oral cavity/pharynx/larynx Overall: oropharyngeal mucosa clear 10/23/2015 None Full Exam - General 1994 Ears/Nose/Throat oral cavity/pharynx/larynx Overall: hypopharynx benign 10/23/2015 None Full Exam - General 1994 Ears/Nose/Throat oral cavity/pharynx/larynx Overall: no masses 10/23/2015 None Full Exam - General 1994 Respiratory auscultation Upper lung field: diminished 10/23/2015 None Full Exam - General 1994 Respiratory auscultation Lower lung field: diminished 10/23/2015 None Full Exam - General 1994 Respiratory respiratory effort/rhythm Overall: no retractions 10/23/2015 None Full Exam - General 1994 Respiratory respiratory effort/rhythm Overall: normal rate 10/23/2015 None Full Exam - General 1994 Cardiovascular extremities Overall: no clubbing 10/23/2015 None Full Exam - General 1994 Cardiovascular auscultation of heart Overall: regular rate 10/23/2015 None Full Exam - General 1994 Cardiovascular auscultation of heart Overall: normal heart sounds 10/23/2015 None Full Exam - General 1994 Abdomen abdominal exam Overall: no tenderness 10/23/2015 None Full Exam - General 1994 Abdomen abdominal exam Overall: normal bowel sounds 10/23/2015 None Full Exam - General 1994 Integument inspection of skin Overall: few scattered moles, no gross abnormalities 10/23/2015 None Full Exam - General 1994 Neurologic deep tendon reflexes Overall: deep tendon reflexes intact 10/23/2015 None Full Exam - General 1994 Neurologic cranial nerves Overall: crainial nerves 2 - 12 grossly intact 10/23/2015 None Full Exam - General 1994 Psychiatric orientation/consciousness Overall: oriented to person, place and time 10/23/2015 None Full Exam - General 1994 Psychiatric mood and affect Overall: normal mood and affect 10/23/2015 None Full Exam - General 1994 Ears/Nose/Throat internal nose Nasal cavity: ulceration 10/23/2015 None Full Exam - General 1994 Constitutional general appearance Development: appears stated age 0109/04/2015 None Full Exam - General 1994 Constitutional general appearance Development: well developed 2015 None Full Exam - General 1994 Constitutional general appearance Hygiene/Attention to Grooming: good hygiene 2015 None Full Exam - General 1994 Eyes conjunctiva /eyelids Overall: conjunctiva clear 2015 None Full Exam - General 1994 Eyes conjunctiva /eyelids Overall: cornea clear 2015 None Full Exam - General 1994 Eyes conjunctiva /eyelids Overall: eyelids normal 2015 None Full Exam - General 1994 Eyes pupils and irises Overall: pupils equal, round, reactive to light and accomodation 2015 None Full Exam - General 1994 Ears/Nose/Throat otoscopic exam Overall: external auditory canals clear 2015 None Full Exam - General 1994 Ears/Nose/Throat otoscopic exam Overall: tympanic membranes clear 2015 None Full Exam - General 1994 Ears/Nose/Throat lips/teeth/gingiva Overall: benign lips 2015 None Full Exam - General 1994 Ears/Nose/Throat lips/teeth/gingiva Overall: normal dentition 2015 None Full Exam - General 1994 Ears/Nose/Throat oral cavity/pharynx/larynx Overall: hypopharynx benign 2015 None Full Exam - General 1994 Ears/Nose/Throat oral cavity/pharynx/larynx Overall: no masses 2015 None Full Exam - General 1994 Ears/Nose/Throat oral cavity/pharynx/larynx Overall: oral mucosa clear 2015 None Full Exam - General 1994 Ears/Nose/Throat oral cavity/pharynx/larynx Overall: oropharyngeal mucosa clear 2015 None Full Exam - General 1994 Respiratory respiratory effort/rhythm Overall: no retractions 2015 None Full Exam - General 1994 Respiratory respiratory effort/rhythm Overall: normal rate 2015 None Full Exam - General 1994 Cardiovascular extremities Overall: no clubbing 2015 None Full Exam - General 1994 Cardiovascular auscultation of heart Overall: normal heart sounds 2015 None Full Exam - General 1994 Cardiovascular auscultation of heart Overall: regular rate 2015 None Full Exam - General 1994 Abdomen abdominal exam Overall: no tenderness 2015 None Full Exam - General 1994 Abdomen abdominal exam Overall: normal bowel sounds 2015 None Full Exam - General 1994 Integument inspection of skin Overall: few scattered moles, no gross abnormalities 2015 None Full Exam - General 1994 Neurologic deep tendon reflexes Overall: deep tendon reflexes intact 2015 None Full Exam - General 1994 Neurologic cranial nerves Overall: crainial nerves 2 - 12 grossly intact 2015 None Full Exam - General 1994 Psychiatric orientation/consciousness Overall: oriented to person, place and time 2015 None Full Exam - General 1994 Psychiatric mood and affect Overall: normal mood and affect 2015 None Full Exam - General 1994 Respiratory auscultation Upper lung field: diminished 2015 None Full Exam - General 1994 Respiratory auscultation Lower lung field: diminished 2015 None Full Exam - Cardiology Eyes conjunctiva/ eyelids Overall: conjunctiva clear 05/15/2015 None Full Exam - Cardiology Eyes conjunctiva/ eyelids Overall: cornea clear 05/15/2015 None Full Exam - Cardiology Ears/Nose/Throat teeth/gingiva/palate Overall: hard palate benign 05/15/2015 None Full Exam - Cardiology Ears/Nose/Throat teeth/gingiva/palate Overall: soft palate benign 05/15/2015 None Full Exam - Cardiology Respiratory respiratory effort/rhythm Overall: normal rate 05/15/2015 None Full Exam - Cardiology Respiratory auscultation Overall: breath sounds clear bilaterally 05/15/2015 None Full Exam - Cardiology Cardiovascular auscultation of heart Overall: regular rate 05/15/2015 None Full Exam - Cardiology Cardiovascular auscultation of heart Overall: normal heart sounds 05/15/2015 None Full Exam - Cardiology Cardiovascular auscultation of heart Overall: no murmurs 05/15/2015 None Full Exam - Cardiology Abdomen abdominal exam Overall: normal bowel sounds 05/15/2015 None Full Exam - Cardiology Extremities digits and nails Overall: no clubbing 05/15/2015 None Full Exam - Cardiology Extremities digits and nails Overall: digits benign 05/15/2015 None Full Exam - Cardiology Integument inspection/palpation Overall: no rash, lesions 05/15/2015 None Full Exam - Cardiology Integument inspection/palpation Overall: no induration, no tenderness 05/15/2015 None Full Exam - Cardiology Psychiatric orientation/consciousness Overall: oriented to person, place and time 05/15/2015 None Full Exam - Cardiology Constitutional general appearance Overall: well nourished 05/15/2015 None Full Exam - Cardiology Constitutional general appearance Overall: well developed 05/15/2015 None Full Exam - Cardiology Constitutional general appearance Overall: in no acute distress 05/15/2015 None Full Exam - Cardiology Eyes conjunctiva/ eyelids Overall: conjunctiva clear 03/22/2015 None Full Exam - Cardiology Eyes conjunctiva/ eyelids Overall: cornea clear 03/22/2015 None Full Exam - Cardiology Ears/Nose/Throat teeth/gingiva/palate Overall: hard palate benign 03/22/2015 None Full Exam - Cardiology Ears/Nose/Throat teeth/gingiva/palate Overall: soft palate benign 03/22/2015 None Full Exam - Cardiology Respiratory respiratory effort/rhythm Overall: normal rate 03/22/2015 None Full Exam - Cardiology Respiratory auscultation Overall: breath sounds clear bilaterally 03/22/2015 None Full Exam - Cardiology Cardiovascular auscultation of heart Overall: regular rate 03/22/2015 None Full Exam - Cardiology Cardiovascular auscultation of heart Overall: normal heart sounds 03/22/2015 None Full Exam - Cardiology Cardiovascular auscultation of heart Overall: no murmurs 03/22/2015 None Full Exam - Cardiology Abdomen abdominal exam Overall: normal bowel sounds 03/22/2015 None Full Exam - Cardiology Abdomen abdominal exam Right upper quadrant: tender to palpation 03/22/2015 mild pain Full Exam - Cardiology Abdomen abdominal exam Periumbilical: tender to palpation 03/22/2015 None Full Exam - Cardiology Abdomen abdominal exam Periumbilical: mass present 03/22/2015 hernia Full Exam - Cardiology Extremities digits and nails Overall: no clubbing 03/22/2015 None Full Exam - Cardiology Extremities digits and nails Overall: digits benign 03/22/2015 None Full Exam - Cardiology Integument inspection/palpation Overall: no rash, lesions 03/22/2015 None Full Exam - Cardiology Integument inspection/palpation Overall: no induration, no tenderness 03/22/2015 None Full Exam - Cardiology Psychiatric orientation/consciousness Overall: oriented to person, place and time 03/22/2015 None Full Exam - Cardiology Constitutional general appearance Overall: well nourished 03/22/2015 None Full Exam - Cardiology Constitutional general appearance Overall: well developed 03/22/2015 None Full Exam - Cardiology Constitutional general appearance Overall: in no acute distress 03/22/2015 None Full Exam - Cardiology Eyes conjunctiva/ eyelids Overall: conjunctiva clear 01/23/2015 None Full Exam - Cardiology Chest/Breast breast/chest inspection Overall: normal chest shape 01/23/2015 None Full Exam - Cardiology Respiratory respiratory effort/rhythm Overall: no retractions 01/23/2015 None Full Exam - Cardiology Respiratory respiratory effort/rhythm Overall: normal rate 01/23/2015 None Full Exam - Cardiology Respiratory auscultation Overall: breath sounds clear bilaterally 01/23/2015 None Full Exam - Cardiology Cardiovascular auscultation of heart Overall: regular rate 01/23/2015 None Full Exam - Cardiology Cardiovascular auscultation of heart Overall: normal heart sounds 01/23/2015 None Full Exam - Cardiology Cardiovascular auscultation of heart Overall: no murmurs 01/23/2015 None Full Exam - Cardiology Cardiovascular extremities Overall: without clubbing, cyanosis, or edema 01/23/2015 None Full Exam - Cardiology Abdomen abdominal exam Overall: no tenderness 01/23/2015 None Full Exam - Cardiology Abdomen abdominal exam Overall: normal bowel sounds 01/23/2015 None Full Exam - Cardiology Extremities digits and nails Overall: no clubbing 01/23/2015 None Full Exam - Cardiology Extremities digits and nails Overall: digits benign 01/23/2015 None Full Exam - Cardiology Neurologic deep tendon reflexes Overall: deep tendon reflexes intact 01/23/2015 None Full Exam - Cardiology Psychiatric orientation/consciousness Overall: oriented to person, place and time 01/23/2015 None Full Exam - Cardiology Constitutional general appearance Overall: well nourished 01/23/2015 None Full Exam - Cardiology Constitutional general appearance Overall: well developed 01/23/2015 None Full Exam - Cardiology Constitutional general appearance Overall: in no acute distress 01/23/2015 None Full Exam - Cardiology Abdomen abdominal exam Contour: rounded 01/23/2015 None Full Exam - Cardiology Abdomen abdominal exam Periumbilical: non-tender to palpation 01/23/2015 large umbilical hernia noted Full Exam - Cardiology Ears/Nose/Throat oral mucosa Overall: oral mucosa clear 01/23/2015 None Full Exam - Cardiology Ears/Nose/Throat teeth/gingiva/palate Teeth: edentulous 01/23/2015 None Full Exam - Cardiology Constitutional general appearance Overall: well nourished 12/20/2014 None Full Exam - Cardiology Constitutional general appearance Overall: well developed 12/20/2014 None Full Exam - Cardiology Constitutional general appearance Overall: in no acute distress 12/20/2014 None Full Exam - Cardiology Eyes conjunctiva/ eyelids Overall: conjunctiva clear 12/20/2014 None Full Exam - Cardiology Chest/Breast breast/chest inspection Overall: normal chest shape 12/20/2014 None Full Exam - Cardiology Respiratory respiratory effort/rhythm Overall: no retractions 12/20/2014 None Full Exam - Cardiology Respiratory respiratory effort/rhythm Overall: normal rate 12/20/2014 None Full Exam - Cardiology Respiratory auscultation Overall: breath sounds clear bilaterally 12/20/2014 None Full Exam - Cardiology Cardiovascular auscultation of heart Overall: regular rate 12/20/2014 None Full Exam - Cardiology Cardiovascular auscultation of heart Overall: normal heart sounds 12/20/2014 None Full Exam - Cardiology Cardiovascular auscultation of heart Overall: no murmurs 12/20/2014 None Full Exam - Cardiology Cardiovascular extremities Overall: without clubbing, cyanosis, or edema 12/20/2014 None Full Exam - Cardiology Abdomen abdominal exam Overall: no tenderness 12/20/2014 None Full Exam - Cardiology Abdomen abdominal exam Overall: normal bowel sounds 12/20/2014 None Full Exam - Cardiology Extremities digits and nails Overall: no clubbing 12/20/2014 None Full Exam - Cardiology Extremities digits and nails Overall: digits benign 12/20/2014 None Full Exam - Cardiology Neurologic deep tendon reflexes Overall: deep tendon reflexes intact 12/20/2014 None Full Exam - Cardiology Psychiatric orientation/consciousness Overall: oriented to person, place and time 12/20/2014 None Procedures Procedure Codes Date MD SERVICE REQUIRED FOR PMD CPT-4: G0372 03/18/2018 PPPS, SUBSEQ VISIT CPT -4: G0439 01/26/2018 FLU VAC NO PRSV 4 ELPIDIO 3 YRS+ CPT-4: 65055 05/28/2017 TOBACCO-USE WELT BUTTER HAND 3-[address]: 175108480 CPT-4: G0436 05/28/2017 ADMIN INFLUENZA VIRUS VAC CPT-4: G0008 05/28/2017 TOBACCO-USE WELT BUTTER HAND 3-[address]: 163417336 CPT-4: G0436 04/02/2017 PNEUMOCOCCAL VACC [address]: 43628712 CPT-4: 09888 04/02/2017 ADMIN PNEUMOCOCCAL VACCINE SNOMED CT: 25171475 CPT-4: G0009 04/02/2017 TOBACCO-USE WELT BUTTER HAND 3-[address]: 605014587 CPT-4: G0436 02/05/2017 TOBACCO-USE WELT BUTTER HAND 3-[address]: 769834401 CPT-4: G0436 07/21/2016 TOBACCO-USE WELT BUTTER HAND 3-[address]: 249069242 CPT-4: G0436 04/22/2016 ADMIN INFLUENZA VIRUS VAC CPT-4: G0008 04/22/2016 IIV4 FLU VACC NO PRESERV ID SNOMED CT: 29577100 CPT-4: 29970 04/22/2016 TOBACCO-USE WELT BUTTER HAND 3-[address]: 230645391 CPT-4: G0436 01/22/2016 TOBACCO-USE WELT BUTTER HAND 3-[address]: 200355268 CPT-4: G0436 10/23/2015 ADMIN INFLUENZA VIRUS VAC CPT-4: G0008 05/15/2015 IIV4 FLU VACC NO PRESERV ID Formatting Model/CDA Sections, Assigned to/Karol Juarez SNOMED CT: 38984742 CPT-4: 16638Yizekgu 05/15/2015 Vital Signs Date Vital 07/05/2018 Blood Pressure 1: 124/76 Code : 8480-6 BMI: 30.1 Code : 61032-5 Heart Rate 1 : 78 bpm Height: 6' SpO2: 96% Weight: 222 lbs 03/18/2018 Blood Pressure 1: 118/72 Code : 8480-6 BMI: 29.0 Code : 88587-9 Heart Rate 1 : 68 bpm Height: 6' SpO2: 95% Weight: 214 lbs 01/26/2018 Height: Weight: 01/06/2018 Blood Pressure 1: 136/70 Code : 8480-6 BMI: 29.8 Code : 79194-0 Heart Rate 1 : 69 bpm Height: 6' SpO2: 99% Weight: 220 lbs 09/28/2017 Blood Pressure 1: 138/76 Code : 8480-6 BMI: 29.6 Code : 38663-5 Heart Rate 1 : 83 bpm Height: 6' SpO2: 99% Weight: 218 lbs 07/29/2017 Blood Pressure 1: 116/72 Code : 8480-6 BMI: 30.1 Code : 55925-4 Heart Rate 1 : 73 bpm Height: 6' SpO2: 97% Weight: 222 lbs 05/28/2017 Blood Pressure 1: 11666 Code : 8480-6 BMI: 30.4 Code : 56764-8 Heart Rate 1 : 79 bpm Height: 6' SpO2: 97% Weight: 224 lbs 04/02/2017 Blood Pressure 1: 128/68 Code : 8480-6 BMI: 31.7 Code : 97527-9 Heart Rate 1 : 77 bpm Height: 6' SpO2: 96% Weight: 234 lbs 03/04/2017 Blood Pressure 1: 138/86 Code : 8480-6 BMI: 31.7 Code : 14854-7 Heart Rate 1 : 88 bpm Height: 6' SpO2: 94% Weight: 234 lbs 02/05/2017 Blood Pressure 1: 140/78 Code : 8480-6 BMI: 30.1 Code : 42087-3 Heart Rate 1 : 68 bpm Height: 6' SpO2: 98% Weight: 222 lbs 12/22/2016 Blood Pressure 1: 146/70 Code : 8480-6 BMI: 30.4 Code : 63445-3 Heart Rate 1 : 77 bpm Height: 6' SpO2: 94% Temperature: 37.6 (C) / 99.6 (F) Weight: 224 lbs 09/08/2016 Blood Pressure 1: 136/82 Code : 8480-6 BMI: 31.8 Code : 77929-0 Heart Rate 1 : 77 bpm Height: 6' SpO2: 93% Weight: 234 lbs 8 oz 08/19/2016 Blood Pressure 1: 122/74 Code : 8480-6 BMI: 29.4 Code : 22314-7 Heart Rate 1 : 56 bpm Height: 6' SpO2: 91% Temperature: 36.9 (C) / 98.4 (F) Weight: 217 lbs 07/21/2016 Blood Pressure 1: 120/68 Code : 8480-6 BMI: 29.4 Code : 29325-6 Heart Rate 1 : 94 bpm Height: 6' SpO2: 93% Weight: 217 lbs 04/22/2016 Blood Pressure 1: 118/68 Code : 8480-6 BMI: 29.4 Code : 69321-2 Heart Rate 1 : 57 bpm Height: 6' SpO2: 98% Temperature: 36.6 (C) / 97.8 (F) Weight: 217 lbs 01/22/2016 Blood Pressure 1: 138/74 Code : 8480-6 BMI: 30.8 Code : 47219-1 Heart Rate 1 : 70 bpm Height: 6' SpO2: 96% Weight: 227 lbs 01/04/2016 Blood Pressure 1: 116/70 Code : 8480-6 BMI: 29.6 Code : 65876-2 Heart Rate 1 : 66 bpm Height: 6' SpO2: 96% Weight: 218 lbs 11/16/2015 Blood Pressure 1: 110/64 Code : 8480-6 BMI: 31.6 Code : 41556-6 Heart Rate 1 : 73 bpm Height: 6' SpO2: 95% Weight: 233 lbs 10/23/2015 Blood Pressure 1: 138/74 Code : 8480-6 BMI: 31.3 Code : 01466-8 Heart Rate 1 : 73 bpm Height: 6' SpO2: 98% Weight: 231 lbs 2015 Blood Pressure 1: 122/74 Code : 8480-6 BMI: 32.3 Code : 55628-6 Heart Rate 1 : 67 bpm Height: 6' SpO2: 97% Weight: 238 lbs 05/15/2015 Blood Pressure 1: 110/60 Code : 8480-6 BMI: 31.1 Code : 05583-3 Heart Rate 1 : 81 bpm Height: 6' SpO2: 98% Weight: 229 lbs 03/22/2015 Blood Pressure 1: 116/62 Code : 8480-6 BMI: 31.2 Code : 53202-9 Heart Rate 1 : 74 bpm Height: 6' SpO2: 98% Weight: 230 lbs 01/23/2015 Blood Pressure 1: 124/68 Code : 8480-6 BMI: 31.1 Code : 81238-4 Heart Rate 1 : 74 bpm Height: 6' Weight: 229 lbs 12/20/2014 Blood Pressure 1: 110/74 Code : 8480-6 BMI: 30.9 Code : 51795-1 Heart Rate 1 : 72 bpm Height: 6' Weight: 228 lbs Functional Status No Functional Status data History of Present Illness Symptom Name Status Result Effective Date Notes diabetes mellitus Onset of Symptom onset as an adult 07/05/2018 None diabetes mellitus Quality chronic 07/05/2018 None diabetes mellitus Alleviating Factors medication 07/05/2018 None diabetes mellitus Exacerbating Factors diet 07/05/2018 None diabetes mellitus Pertinent Findings dyspnea 07/05/2018 None diabetes mellitus Pertinent Findings nausea 07/05/2018 at times hypertension Quality primary hypertension 07/05/2018 None hypertension Onset and Resolution ongoing 07/05/2018 None hypertension Onset of Symptom during adulthood 07/05/2018 None hypertension Blood Pressure Values not checking blood pressure at home 07/05/2018 None hypertension Alleviating Factors medication 07/05/2018 None hypertension Pertinent Findings Denies dizziness 07/05/2018 sometimes if he gets up too quickly hypertension Pertinent Findings dyspnea 07/05/2018 None diabetes mellitus Onset of Symptom onset as an adult 03/18/2018 None diabetes mellitus Quality chronic 03/18/2018 None diabetes mellitus Alleviating Factors medication 03/18/2018 None diabetes mellitus Exacerbating Factors diet 03/18/2018 None diabetes mellitus Pertinent Findings dyspnea 03/18/2018 None diabetes mellitus Pertinent Findings nausea 03/18/2018 at times hypertension Quality primary hypertension 03/18/2018 None hypertension Onset and Resolution ongoing 03/18/2018 None hypertension Onset of Symptom during adulthood 03/18/2018 None hypertension Blood Pressure Values not checking blood pressure at home 03/18/2018 None hypertension Alleviating Factors medication 03/18/2018 None hypertension Pertinent Findings Denies dizziness 03/18/2018 sometimes if he gets up too quickly hypertension Pertinent Findings dyspnea 03/18/2018 None Annual Medicare Wellness Exam Alcohol Use does not drink any alcohol 01/26/2018 None Annual Medicare Wellness Exam Aspirin Use no 01/26/2018 None Annual Medicare Wellness Exam Blood Glucose (self reported) high (126 or higher) 01/26/2018 None Annual Medicare Wellness Exam Blood Pressure (self reported ) diagnosed with hypertension 01/26/2018 None Annual Medicare Wellness Exam Cholesterol (self reported) don't know 01/26/2018 None Annual Medicare Wellness Exam Depression (last 6 months) some of the time 01/26/2018 None Annual Medicare Wellness Exam Depression or Hopelessness almost never 01/26/2018 None Annual Medicare Wellness Exam Describe Your Health poor 01/26/2018 None Annual Medicare Wellness Exam Exercise Habits exercises 3-5 days per week 01/26/2018 None Annual Medicare Wellness Exam Handling Stress usually elio effectively 01/26/2018 None Annual Medicare Wellness Exam Hemaglobin A-1C (self reported ) don't know 01/26/2018 None Annual Medicare Wellness Exam Hours of Sleep 4-5 01/26/2018 None Annual Medicare Wellness Exam Interaction with Friends yes 01/26/2018 None Annual Medicare Wellness Exam Interests & Pleasure almost never 01/26/2018 None Annual Medicare Wellness Exam Life Satisfaction satisfied 01/26/2018 None Annual Medicare Wellness Exam Motor Vehicle Safety always fastens seat belt: y 01/26/2018 None Annual Medicare Wellness Exam Nutrition servings of vegetables / fruit per day: 1-2 01/26/2018 None Annual Medicare Wellness Exam Smoking and Tobacco Use cigarette smoker 01/26/2018 None Annual Medicare Wellness Exam Social & Emotional Support sometimes 01/26/2018 None Annual Medicare Wellness Exam Stress some of the time 01/26/2018 None Annual Medicare Wellness Exam Sun Exposure protects skin when outdoors: n 01/26/2018 None diabetes mellitus Onset of Symptom onset as an adult 01/06/2018 None diabetes mellitus Quality chronic 01/06/2018 None diabetes mellitus Alleviating Factors medication 01/06/2018 None diabetes mellitus Exacerbating Factors diet 01/06/2018 None diabetes mellitus Pertinent Findings dyspnea 01/06/2018 None diabetes mellitus Pertinent Findings nausea 01/06/2018 at times hypertension Quality primary hypertension 01/06/2018 None hypertension Onset and Resolution ongoing 01/06/2018 None hypertension Onset of Symptom during adulthood 01/06/2018 None hypertension Blood Pressure Values not checking blood pressure at home 01/06/2018 None hypertension Alleviating Factors medication 01/06/2018 None hypertension Pertinent Findings dizziness 01/06/2018 sometimes if he gets up too quickly hypertension Pertinent Findings dyspnea 01/06/2018 None diabetes mellitus Test results Pt not checking blood glucose readings at home 01/06/2018 None diabetes mellitus Onset of Symptom onset as an adult 09/28/2017 None diabetes mellitus Quality chronic 09/28/2017 None diabetes mellitus Alleviating Factors medication 09/28/2017 None diabetes mellitus Exacerbating Factors diet 09/28/2017 None diabetes mellitus Pertinent Findings dyspnea 09/28/2017 None diabetes mellitus Pertinent Findings nausea 09/28/2017 at times hypertension Quality primary hypertension 09/28/2017 None hypertension Onset and Resolution ongoing 09/28/2017 None hypertension Onset of Symptom during adulthood 09/28/2017 None hypertension Blood Pressure Values not checking blood pressure at home 09/28/2017 None hypertension Alleviating Factors medication 09/28/2017 None hypertension Pertinent Findings dizziness 09/28/2017 sometimes if he gets up too quickly hypertension Pertinent Findings dyspnea 09/28/2017 None cough Quality acute None cough Quality intermittent 09/28/2017 None cough Quality productive 09/28/2017 None cough Onset and Resolution ongoing 09/28/2017 None cough Pertinent Findings nasal congestion 09/28/2017 None cough Pertinent Findings post nasal drip 09/28/2017 None cough Pertinent Findings sputum production 09/28/2017 None cough Onset of Symptom 3 months ago 09/28/2017 None cough Frequency of Episodes daily 09/28/2017 None cough Pertinent Findings Denies fever 09/28/2017 None cough Pertinent Findings Denies chills 09/28/2017 None diabetes mellitus Test results Pt not checking blood glucose readings at home 09/28/2017 None diabetes mellitus Onset of Symptom onset as an adult 07/29/2017 None diabetes mellitus Quality chronic 07/29/2017 None diabetes mellitus Alleviating Factors medication 07/29/2017 None diabetes mellitus Exacerbating Factors diet 07/29/2017 None diabetes mellitus Pertinent Findings dyspnea 07/29/2017 None hypertension Onset and Resolution ongoing 07/29/2017 None hypertension Onset of Symptom during adulthood 07/29/2017 None hypertension Blood Pressure Values not checking blood pressure at home 07/29/2017 None hypertension Pertinent Findings dizziness 07/29/2017 sometimes if he gets up too quickly hypertension Pertinent Findings dyspnea 07/29/2017 None hypertension Pertinent Findings Denies edema 07/29/2017 None hypertension Quality primary hypertension 07/29/2017 None hypertension Alleviating Factors medication 07/29/2017 None cough Pertinent Findings sputum production 07/29/2017 None cough Pertinent Findings post nasal drip 07/29/2017 None cough Pertinent Findings nasal congestion 07/29/2017 None cough Quality acute None cough Quality intermittent 07/29/2017 None cough Quality productive 07/29/2017 None cough Onset and Resolution sudden in onset 07/29/2017 None cough Onset and Resolution ongoing 07/29/2017 None cough Onset of Symptom 4 weeks ago 07/29/2017 None diabetes mellitus Test results Pt not checking blood glucose readings at home 07/29/2017 None diabetes mellitus Pertinent Findings nausea 07/29/2017 at times hypertension Quality stable 07/29/2017 None diabetes mellitus Onset of Symptom onset as an adult 05/28/2017 None diabetes mellitus Quality chronic 05/28/2017 None diabetes mellitus Alleviating Factors medication 05/28/2017 None diabetes mellitus Exacerbating Factors diet 05/28/2017 None diabetes mellitus Pertinent Findings dyspnea 05/28/2017 None hypertension Onset and Resolution ongoing 05/28/2017 None hypertension Onset of Symptom during adulthood 05/28/2017 None hypertension Blood Pressure Values not checking blood pressure at home 05/28/2017 None hypertension Pertinent Findings Denies dizziness 05/28/2017 None hypertension Pertinent Findings dyspnea 05/28/2017 None hypertension Pertinent Findings Denies edema 05/28/2017 None diabetes mellitus Onset of Symptom onset as an adult 04/02/2017 None diabetes mellitus Quality chronic 04/02/2017 None diabetes mellitus Alleviating Factors medication 04/02/2017 None diabetes mellitus Exacerbating Factors diet 04/02/2017 None diabetes mellitus Pertinent Findings dyspnea 04/02/2017 None hypertension Onset and Resolution ongoing 04/02/2017 None hypertension Onset of Symptom during adulthood 04/02/2017 None hypertension Blood Pressure Values not checking blood pressure at home 04/02/2017 None hypertension Pertinent Findings Denies dizziness 04/02/2017 None hypertension Pertinent Findings dyspnea 04/02/2017 None diabetes mellitus Test results Pt not checking blood glucose readings at home 04/02/2017 None diabetes mellitus Test results Pt checking blood glucose readings, did not bring results to clinic 04/02/2017 None hypertension Pertinent Findings Denies edema 04/02/2017 None diabetes mellitus Onset of Symptom onset as an adult 03/04/2017 None diabetes mellitus Quality chronic 03/04/2017 None diabetes mellitus Alleviating Factors medication 03/04/2017 None diabetes mellitus Exacerbating Factors diet 03/04/2017 None hypertension Onset and Resolution ongoing 03/04/2017 None hypertension Onset of Symptom during adulthood 03/04/2017 None hypertension Blood Pressure Values not checking blood pressure at home 03/04/2017 None hypertension Pertinent Findings Denies dizziness 03/04/2017 None hypertension Pertinent Findings dyspnea 03/04/2017 None diabetes mellitus Pertinent Findings dyspnea 03/04/2017 None Hospital Follow Up _ pneumonia 02/05/2017 None Hospital Follow Up _ pulmonary disease 02/05/2017 None Hospital Follow Up Quality acute 02/05/2017 None Hospital Follow Up Onset and Resolution ongoing 02/05/2017 None diabetes mellitus Onset of Symptom onset as an adult 02/05/2017 None diabetes mellitus Quality chronic 02/05/2017 None diabetes mellitus Alleviating Factors medication 02/05/2017 None diabetes mellitus Exacerbating Factors diet 02/05/2017 None hypertension Onset and Resolution ongoing 02/05/2017 None hypertension Onset of Symptom during adulthood 02/05/2017 None hypertension Blood Pressure Values not checking blood pressure at home 02/05/2017 None hypertension Pertinent Findings Denies dizziness 02/05/2017 None hypertension Pertinent Findings dyspnea 02/05/2017 None shortness of breath Quality breathlessness 12/22/2016 None shortness of breath Quality chest tightness 12/22/2016 None shortness of breath Onset and Resolution sudden in onset 12/22/2016 None shortness of breath Onset of Symptom 2 days ago 12/22/2016 None shortness of breath Pertinent Findings chest discomfort 12/22/2016 None shortness of breath Pertinent Findings cough 12/22/2016 None shortness of breath Pertinent Findings increased work of breathing 12/22/2016 None shortness of breath Pertinent Findings lightheadedness 12/22/2016 None shortness of breath Pertinent Findings nausea 12/22/2016 None cough Location in the lung 12/22/2016 None cough Quality hacking 12/22/2016 None cough Quality productive 12/22/2016 None cough Onset and Resolution sudden in onset 12/22/2016 None cough Onset of Symptom 2 days ago 12/22/2016 None Hospital Follow Up _ pulmonary disease 09/08/2016 None Hospital Follow Up _ pneumonia 09/08/2016 None Hospital Follow Up Quality acute 09/08/2016 None Hospital Follow Up Onset and Resolution ongoing 09/08/2016 None shortness of breath Quality breathlessness 09/08/2016 None shortness of breath Onset and Resolution ongoing 09/08/2016 None shortness of breath Limitation on Activities moderately limits activities 09/08/2016 None cough Location in the lung 08/19/2016 None cough Quality constant 08/19/2016 None cough Quality hacking 08/19/2016 None cough Onset and Resolution sudden in onset 08/19/2016 None cough Onset of Symptom 1 weeks ago 08/19/2016 None cough Frequency of Episodes daily 08/19/2016 None sinus congestion Quality fullness 08/19/2016 None sinus congestion Quality pressure 08/19/2016 None sinus congestion Onset and Resolution sudden in onset 08/19/2016 None sinus congestion Onset of Symptom 1 weeks ago 08/19/2016 None sinus congestion Pertinent Findings cough 08/19/2016 None sinus congestion Pertinent Findings decreased energy level 08/19/2016 None sinus congestion Pertinent Findings fever 08/19/2016 None sinus congestion Pertinent Findings hoarseness 08/19/2016 None chest congestion Quality constant 08/19/2016 None chest congestion Onset and Resolution sudden in onset 08/19/2016 None chest congestion Onset of Symptom 1 weeks ago 08/19/2016 None chest congestion Pertinent Findings cough 08/19/2016 None chest congestion Pertinent Findings chills 08/19/2016 None chest congestion Pertinent Findings decreased energy 08/19/2016 None chest congestion Pertinent Findings fever 08/19/2016 None chest congestion Pertinent Findings loss of appetite 08/19/2016 None diabetes mellitus Onset of Symptom onset as an adult 07/21/2016 None diabetes mellitus Quality non-insulin dependent 07/21/2016 None diabetes mellitus Quality chronic 07/21/2016 None diabetes mellitus Alleviating Factors medication 07/21/2016 None diabetes mellitus Exacerbating Factors diet 07/21/2016 None diabetes mellitus Pertinent Findings Denies dizziness 07/21/2016 if he stands too quickly diabetes mellitus Pertinent Findings dyspnea 07/21/2016 None diabetes mellitus Pertinent Findings Denies nausea 07/21/2016 None hypertension Onset and Resolution ongoing 07/21/2016 None hypertension Onset of Symptom during adulthood 07/21/2016 None hypertension Blood Pressure Values not checking blood pressure at home 07/21/2016 None hypertension Pertinent Findings dyspnea 07/21/2016 None hypertension Pertinent Findings Denies edema 07/21/2016 None diabetes mellitus Onset of Symptom onset as an adult 04/22/2016 None diabetes mellitus Quality chronic 04/22/2016 None diabetes mellitus Alleviating Factors medication 04/22/2016 None diabetes mellitus Exacerbating Factors diet 04/22/2016 None dyspnea Quality air hunger 04/22/2016 None dyspnea Quality breathlessness 04/22/2016 None dyspnea Quality constant 04/22/2016 None dyspnea Quality shortness of breath 04/22/2016 None dyspnea Onset and Resolution ongoing 04/22/2016 None dyspnea Limitation on Activities moderately limits activities 04/22/2016 None dyspnea Alleviating Factors inhalers / nebulizer 04/22/2016 None dyspnea Pertinent Findings Denies fever 04/22/2016 None nosebleed Alleviating Factors external pressure 04/22/2016 None nosebleed Intervention Required pressure 04/22/2016 None nosebleed Onset and Resolution ongoing 04/22/2016 None nosebleed Onset of Symptom years ago 04/22/2016 None nosebleed Quality chronic 04/22/2016 None nosebleed Triggers no known associated factors 04/22/2016 None hypertension Onset and Resolution ongoing 04/22/2016 None hypertension Onset of Symptom during adulthood 04/22/2016 None hypertension Blood Pressure Values not checking blood pressure at home 04/22/2016 None hypertension Pertinent Findings dyspnea 04/22/2016 None diabetes mellitus Quality non-insulin dependent 04/22/2016 None diabetes mellitus Test results Pt checking blood glucose readings, did not bring results to clinic 04/22/2016 None diabetes mellitus Glucose monitoring occasional glucose testing 04/22/2016 None diabetes mellitus Pertinent Findings dyspnea 04/22/2016 None diabetes mellitus Pertinent Findings dizziness 04/22/2016 if he stands too quickly diabetes mellitus Pertinent Findings Denies nausea 04/22/2016 None nosebleed Frequency of Episodes unchanged 04/22/2016 None nosebleed Quality intermittent 04/22/2016 None hypertension Pertinent Findings edema 04/22/2016 None abdominal pain Location in the RLQ 04/22/2016 None abdominal pain Quality intermittent 04/22/2016 None abdominal pain Onset and Resolution ongoing 04/22/2016 None abdominal pain Triggers meals 04/22/2016 None abdominal pain Onset of Symptom months ago 04/22/2016 None cough Quality intermittent 04/22/2016 None cough Quality productive 04/22/2016 None cough Pertinent Findings Denies chills 04/22/2016 None cough Pertinent Findings Denies fever 04/22/2016 None cough Pertinent Findings sputum production 04/22/2016 [place] diabetes mellitus Onset of Symptom onset as an adult 01/22/2016 None diabetes mellitus Quality chronic 01/22/2016 None diabetes mellitus Alleviating Factors medication 01/22/2016 None diabetes mellitus Exacerbating Factors diet 01/22/2016 None dyspnea Quality air hunger 01/22/2016 None dyspnea Quality breathlessness 01/22/2016 None dyspnea Quality constant 01/22/2016 None dyspnea Quality shortness of breath 01/22/2016 None dyspnea Onset and Resolution ongoing 01/22/2016 None dyspnea Limitation on Activities moderately limits activities 01/22/2016 None dyspnea Alleviating Factors inhalers / nebulizer 01/22/2016 None dyspnea Pertinent Findings Denies fever 01/22/2016 None nosebleed Alleviating Factors external pressure 01/22/2016 None nosebleed Intervention Required pressure 01/22/2016 None nosebleed Onset and Resolution ongoing 01/22/2016 None nosebleed Onset of Symptom years ago 01/22/2016 None nosebleed Quality chronic 01/22/2016 None nosebleed Triggers no known associated factors 01/22/2016 None insomnia Quality chronic 01/22/2016 None insomnia Quality difficulty falling asleep 01/22/2016 None insomnia Quality disrupted sleep 01/22/2016 None insomnia Onset and Resolution ongoing 01/22/2016 None insomnia Onset of Symptom years ago 01/22/2016 None nosebleed Frequency of Episodes decreasing 01/22/2016 None hypertension Onset and Resolution ongoing 01/22/2016 None hypertension Onset of Symptom during adulthood 01/22/2016 None hypertension Blood Pressure Values not checking blood pressure at home 01/22/2016 None hypertension Pertinent Findings Denies dizziness 01/22/2016 None hypertension Pertinent Findings dyspnea 01/22/2016 None diabetes mellitus Test results Pt not checking blood glucose readings at home 01/22/2016 None diabetes mellitus Glucose monitoring does not test 01/22/2016 None urinary frequency Quality constant 01/04/2016 None urinary frequency Onset and Resolution sudden in onset 01/04/2016 None urinary frequency Onset of Symptom 1 weeks ago 01/04/2016 None urinary urgency Quality constant 01/04/2016 None urinary urgency Onset and Resolution sudden in onset 01/04/2016 None urinary urgency Onset of Symptom 1 weeks ago 01/04/2016 None Hospital Follow Up _ pneumonia 11/16/2015 None Hospital Follow Up Onset of Symptom 2 weeks ago 11/16/2015 None Hospital Follow Up Pertinent Findings Denies fever 11/16/2015 None Hospital Follow Up Alleviating Factors medication 11/16/2015 None Hospital Follow Up Significant Medical Conditions acute illness 11/16/2015 None diabetes mellitus Onset of Symptom onset as an adult 10/23/2015 None diabetes mellitus Quality chronic 10/23/2015 None diabetes mellitus Alleviating Factors medication 10/23/2015 None diabetes mellitus Exacerbating Factors diet 10/23/2015 None diabetes mellitus Pertinent Findings dizziness 10/23/2015 -occasionally- when he stands up diabetes mellitus Pertinent Findings dyspnea 10/23/2015 None dyspnea Quality air hunger 10/23/2015 None dyspnea Quality breathlessness 10/23/2015 None dyspnea Quality shortness of breath 10/23/2015 None dyspnea Pertinent Findings cough 10/23/2015 -greenish, thick sputum dyspnea Pertinent Findings Denies fever 10/23/2015 None diabetes mellitus Test results Pt checking blood glucose readings, did not bring results to clinic 10/23/2015 None diabetes mellitus Glucose monitoring occasional glucose testing 10/23/2015 - couple times per week- diabetes mellitus Pertinent Findings Denies nausea 10/23/2015 None dyspnea Onset of Symptom 1 months ago 10/23/2015 None dyspnea Onset and Resolution ongoing 10/23/2015 None dyspnea Quality constant 10/23/2015 None dyspnea Limitation on Activities moderately limits activities 10/23/2015 None dyspnea Alleviating Factors inhalers / nebulizer 10/23/2015 None nosebleed Alleviating Factors external pressure 10/23/2015 None nosebleed Onset and Resolution ongoing 10/23/2015 None nosebleed Onset of Symptom _ years ago 10/23/2015 None nosebleed Quality chronic 10/23/2015 None nosebleed Frequency of Episodes unchanged 10/23/2015 2-3 times per week nosebleed Intervention Required pressure 10/23/2015 None nosebleed Triggers no known associated factors 10/23/2015 None insomnia Onset and Resolution ongoing 10/23/2015 None insomnia Quality chronic 10/23/2015 None insomnia Quality disrupted sleep 10/23/2015 None insomnia Quality difficulty falling asleep 10/23/2015 None insomnia Onset of Symptom _ years ago 10/23/2015 None diabetes mellitus Onset of Symptom onset as an adult 2015 None diabetes mellitus Quality chronic 2015 None diabetes mellitus Alleviating Factors medication 2015 None diabetes mellitus Exacerbating Factors diet 2015 None diabetes mellitus Pertinent Findings Denies increased hunger 2015 None diabetes mellitus Pertinent Findings Denies numbness 2015 None diabetes mellitus Pertinent Findings Denies weight loss 2015 None diabetes mellitus Test results Pt checking blood glucose readings, did not bring results to clinic 2015 None diabetes mellitus Glucose monitoring occasional glucose testing 2015 "every other day" diabetes mellitus Pertinent Findings dizziness 2015 None diabetes mellitus Pertinent Findings dyspnea 2015 -states that he has been having "trouble breathing" dyspnea Quality breathlessness 2015 None dyspnea Quality shortness of breath 2015 None dyspnea Quality air hunger 2015 None dyspnea Quality acute 2015 None dyspnea Onset of Symptom 1 months ago 2015 None dyspnea Pertinent Findings cough 2015 None dyspnea Pertinent Findings Denies fever 2015 None dyspnea Pertinent Findings dysphagia 2015 -"somewhat" diabetes mellitus Onset of Symptom onset as an adult 05/15/2015 None diabetes mellitus Quality chronic 05/15/2015 None diabetes mellitus Alleviating Factors medication 05/15/2015 None diabetes mellitus Exacerbating Factors diet 05/15/2015 None diabetes mellitus Test results Pt checking blood glucose readings, did not bring results to clinic 05/15/2015 None diabetes mellitus Glucose monitoring daily 05/15/2015 None diabetes mellitus Pertinent Findings Denies weight loss 05/15/2015 None diabetes mellitus Pertinent Findings Denies numbness 05/15/2015 None diabetes mellitus Pertinent Findings Denies increased hunger 05/15/2015 None back pain Location thoracic spine 03/22/2015 None back pain Quality chronic 03/22/2015 None back pain Quality constant 03/22/2015 None back pain Onset and Resolution ongoing 03/22/2015 None back pain Frequency of Episodes hourly 03/22/2015 None back pain Triggers bending 03/22/2015 None back pain Triggers twisting 03/22/2015 None back pain Triggers activity 03/22/2015 None back pain Pertinent Findings extremity numbness 03/22/2015 occasionally back pain Pertinent Findings morning stiffness 03/22/2015 None back pain Pertinent Findings sleep disturbance 03/22/2015 has trouble sleeping diabetes mellitus Quality chronic 03/22/2015 None diabetes mellitus Alleviating Factors medication 03/22/2015 None diabetes mellitus Alleviating Factors diet 03/22/2015 None diabetes mellitus Alleviating Factors exercise 03/22/2015 None diabetes mellitus Exacerbating Factors diet 03/22/2015 None diabetes mellitus Nutrition ADA diet 03/22/2015 None diabetes mellitus Onset of Symptom onset as an adult 03/22/2015 None diabetes mellitus Test results Pt checking blood glucose readings, did not bring results to clinic 03/22/2015 None diabetes mellitus Glucose monitoring daily 03/22/2015 None back pain Location thoracic spine 01/23/2015 None back pain Quality chronic 01/23/2015 None back pain Quality constant 01/23/2015 None back pain Onset and Resolution ongoing 01/23/2015 None back pain Frequency of Episodes hourly 01/23/2015 None back pain Triggers bending 01/23/2015 None back pain Triggers twisting 01/23/2015 None back pain Triggers activity 01/23/2015 None back pain Pertinent Findings extremity numbness 01/23/2015 occasionally back pain Pertinent Findings morning stiffness 01/23/2015 None back pain Pertinent Findings sleep disturbance 01/23/2015 has trouble sleeping diabetes mellitus Onset of Symptom onset as an adult 01/23/2015 None diabetes mellitus Quality chronic 01/23/2015 None diabetes mellitus Alleviating Factors medication 01/23/2015 None diabetes mellitus Alleviating Factors diet 01/23/2015 None diabetes mellitus Alleviating Factors exercise 01/23/2015 None diabetes mellitus Exacerbating Factors diet 01/23/2015 None diabetes mellitus Nutrition ADA diet 01/23/2015 None back pain Location thoracic spine 12/20/2014 None back pain Onset and Resolution ongoing 12/20/2014 None back pain Quality chronic 12/20/2014 None back pain Quality constant 12/20/2014 None back pain Frequency of Episodes hourly 12/20/2014 None back pain Triggers bending 12/20/2014 None back pain Triggers twisting 12/20/2014 None back pain Triggers activity 12/20/2014 None back pain Pertinent Findings extremity numbness 12/20/2014 occasionally back pain Pertinent Findings morning stiffness 12/20/2014 None back pain Pertinent Findings sleep disturbance 12/20/2014 has trouble sleeping diabetes mellitus Alleviating Factors diet 12/20/2014 None diabetes mellitus Alleviating Factors exercise 12/20/2014 None diabetes mellitus Alleviating Factors medication 12/20/2014 None diabetes mellitus Exacerbating Factors diet 12/20/2014 None diabetes mellitus Exercise minimal exercise 12/20/2014 None diabetes mellitus Glucose monitoring bedtime 12/20/2014 None diabetes mellitus Glucose monitoring before meals 12/20/2014 None diabetes mellitus Glucose monitoring daily 12/20/2014 None diabetes mellitus Glucose monitoring does not test 12/20/2014 None diabetes mellitus Glucose monitoring fasting 12/20/2014 None diabetes mellitus Glucose monitoring twice daily 12/20/2014 None diabetes mellitus Nutrition ADA diet 12/20/2014 None diabetes mellitus Onset of Symptom onset as an adult 12/20/2014 None diabetes mellitus Quality chronic 12/20/2014 None diabetes mellitus Test results HgbA1c level _ 12/20/2014 None Advance Directives Advance Directives Present Encounters Encounter Performer Location Codes Date ([id number]) 18054 EST. PATIENT, LEVEL IV Diagnosis: Type 2 diabetes mellitus with hyperglycemia[ICD10: E11.65] Diagnosis: Essential (primary) hypertension[ICD10: I10] Diagnosis: Chronic pain syndrome[ICD10: G89.4] Diagnosis: Insomnia due to medical condition[ICD10: G47.01] Ayesha Lyn MD, [facility] CPT-4: 76313 07/05/2018 ([id number]) 89663 EST. PATIENT, LEVEL IV Diagnosis: Chronic pain syndrome[ICD10: G89.4] Diagnosis: Essential (primary) hypertension[ICD10: I10] Diagnosis: Type 2 diabetes mellitus with hyperglycemia[ICD10: E11.65] Diagnosis: Unsteadiness on feet[ICD10: R26.81] Diagnosis: Muscle weakness (generalized)[ICD10: M62.81] Ayesha Lyn MD [facility] CPT-4: 29824 03/18/2018 ([id number]) 42342 EST. PATIENT, LEVEL IV Diagnosis: Type 2 diabetes mellitus without complications[ICD10: E11.9] Diagnosis: Essential (primary) hypertension[ICD10: I10] Diagnosis: Chronic pain syndrome[ICD10: G89.4] Ayesha Lyn MD [facility] CPT-4: 47086 01/06/2018 ([id number]) 56505 EST. PATIENT, LEVEL IV Diagnosis: Essential (primary) hypertension[ICD10: I10] Diagnosis: Chronic pain syndrome[ICD10: G89.4] Diagnosis: Type 2 diabetes mellitus without complications[ICD10: E11.9] Diagnosis: Other specified diseases of liver[ICD10: K76.89] Ayesha Lyn MD [facility] CPT-4: 03475 09/28/2017 ([id number]) 38135 EST. 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 PATIENT, LEVEL IV Diagnosis: Type 2 diabetes mellitus without complications[ICD10: E11.9] Diagnosis: Essential (primary) hypertension[ICD10: I10] Diagnosis: Encounter for immunization[ICD10: Z23] Ayesha Lyn MD [facility] CPT-4: 92679 05/28/2017 ([id number]) 28194 EST. PATIENT, LEVEL IV Diagnosis: Type 2 diabetes mellitus without complications[ICD10: E11.9] Diagnosis: Essential (primary) hypertension[ICD10: I10] Diagnosis: Tobacco use[ICD10: Z72.0] Diagnosis: Epistaxis[ICD10: R04.0] Diagnosis: Encounter for immunization[ICD10: Z23] JAYLEN Rodriguez MD CPT-4: 98642 04/02/2017 ([id number]) 16830 EST. PATIENT, LEVEL IV Diagnosis: Type 2 diabetes mellitus without complications[ICD10: E11.9] Diagnosis: Essential (primary) hypertension[ICD10: I10] Diagnosis: Chronic pain syndrome[ICD10: G89.4] JAYLEN Rodriguez MD CPT-4: 43341 03/04/2017 [id number]) 02329 EST. 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 PATIENT, LEVEL IV Diagnosis: Right upper quadrant pain[ICD10: R10.11] Diagnosis: VACCIN FOR INFLUENZA[ICD10: Z23] Diagnosis: Type 2 diabetes mellitus without complications[ICD10: E11.9] Diagnosis: Tobacco use[ICD10: Z72.0] Ayesha Lyn MD, [facility] CPT-4: 31523 04/22/2016 ([id number]) 96037 EST. PATIENT, LEVEL IV Diagnosis: Type 2 diabetes mellitus without complications[ICD10: E11.9] Diagnosis: Chronic pain syndrome[ICD10: G89.4] Diagnosis: Essential (primary) hypertension[ICD10: I10] Diagnosis: Insomnia due to medical condition[ICD10: G47.01] Diagnosis: Tobacco use[ICD10: Z72.0] Ayesha Lyn MD, [facility] CPT-4: 11307 01/22/2016 [id number] EST. PATIENT, LEVEL III Diagnosis: Dysuria[ICD10: R30.0] Eunice Lyn MD, [facility] CPT-4: 04287 01/04/2016 [id number] EST. PATIENT, LEVEL IV Diagnosis: Encounter for follow-up examination after completed treatment for conditions other than malignant neoplasm[ICD10: Z09] Diagnosis: Chronic pain syndrome[ICD10: G89.4] Diagnosis: Essential (primary) hypertension[ICD10: I10] Eunice Lyn MD, [facility] CPT-4: 37102 11/16/2015 ([id number]) 49132 EST. 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 PATIENT, LEVEL IV Diagnosis: Type 2 diabetes mellitus without complications[ICD10: E11.9] Diagnosis: Chronic pain syndrome[ICD10: G89.4] Diagnosis: Chronic obstructive pulmonary disease, unspecified[ICD10: J44.9] [facility] CPT-4: 37404 2015 ([id number]) 79111 EST. PATIENT, LEVEL IV Diagnosis: Encounter for immunization[ICD10: Z23] Diagnosis: Type 2 diabetes mellitus without complications[ICD10: E11.9] Diagnosis: Chronic pain syndrome[ICD10: G89.4] Diagnosis: Insomnia, unspecified[ICD10: G47.00] Ayesha Lyn MD, [facility] CPT-4: 54299 05/15/2015 ([id number]) 39718 EST. PATIENT, LEVEL IV Diagnosis: DIABETES TYPE II[ICD9: 250.00] Diagnosis: ESSENTIAL HYPERTENSION[ICD9: 401.9] Ayesha yLn MD, [facility] CPT-4: 39779 03/22/2015 ([id number]) 87099 EST. PATIENT, LEVEL IV Diagnosis: Umbilical hernia[ICD9: 553.1] Diagnosis: 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[ICD9: V02.62] Diagnosis: CHRONIC PAIN SYNDROME[ICD9: 338.4] Diagnosis: Tumor of liver[ICD9: 239.0] Diagnosis: Urinary tract infection[ICD9: 599.0] Diagnosis: DIABETES TYPE II[ICD9: 250.00] [facility] CPT- 4: 10596 01/23/2015 ([id number]) OFFICE/OUTPATIENT VISIT NEW Diagnosis: DIABETES TYPE II[ICD9: 250.00] Diagnosis: ESOPHAGEAL REFLUX[ICD9: 530.81] Diagnosis: BACKACHE[ICD9: 724.5] Diagnosis: CHRONIC PAIN SYNDROME[ICD9: 338.4] Diagnosis: 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[ICD9: V02.62] [facility] CPT-4: 89455 12/20/2014 Plan of Care Planned Activity Notes Codes Status Date Visit Plan: COPD - rx to [facility] for mask instead of [place] DM - pt does not check his fsbs very regularly - is not reliable for checking his sugars or taking his medications. With his metastatic hepatocellular carcinoma, and esophageal varicies - he is at high risk for further deterioration in his symptoms and in his diabetic control. However, Toan continues to live at home alone with his sisters visiting frequently, but they cannot control his dietary intake as they are not in the home 24 hours a day. Toan remains non-compliant with our recommendations and medical interventions. Hypertension - well controlled - continue with current medications, continue with no added salt diet. Pt has been encouraged to exercise daily. The pt has been advised to call the office if there are any acute concerns about change in blood pressure readings at home. Chronic Pain Syndrome - pt has chronic pain - has been maintained on current medications, has not sought out other medications, only uses PRN pain medications as directed , and understands the consequences of over-medication. 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 He has increased difficulty getting around in his home due to his weakness, he cannot ambulate more than 20 feet without stopping to rest and he cannot ambulate outside of his home without assistance. He cannot use a walker or cane for ambulation due to his weakness and inability to rest with his walker or cane for recovery of his symptoms. He has initial power in his arms which would allow him to use a manual wheelchair, however he has such easy fatigue that he would not be able to power the wheelchair more than a few feet and thus it would not be able to be effectively used in his home or outside of the home. He will continue to decline physically due to the metastatic cancer and he will need a way to be mobile in and outside of his home for continued quality of life. I have recommended a powered scooter. His family will look into a powered scooter through [employer]. Toan could reliably run a powered scooter. I have recommended that if Medicare denies the purchase of a powered scooter through [employer] that they need to look at purchase of a powered scooter through other means - perhaps a used scooter if they can find one that is in good shape. DM - pt does not check his fsbs very regularly - is not reliable for checking his sugars or taking his medications. With his metastatic hepatocellular carcinoma, and esophageal varicies - he is at high risk for further deterioration in his symptoms and in his diabetic control. However, Toan continues to live at home alone with his sisters visiting frequently, but they cannot control his dietary intake as they are not in the home 24 hours a day. Toan remains non-compliant with our recommendations and medical interventions. Hypertension - well controlled - continue with current medications, continue with no added salt diet. Pt has been encouraged to exercise daily. The pt has been advised to call the office if there are any acute concerns about change in blood pressure readings at home. 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 He has increased difficulty getting around in his home due to his weakness, he cannot ambulate more than 20 feet without stopping to rest and he cannot ambulate outside of his home without assistance. He cannot use a walker or cane for ambulation due to his weakness and inability to rest with his walker or cane for recovery of his symptoms. He has initial power in his arms which would allow him to use a manual wheelchair, however he has such easy fatigue that he would not be able to power the wheelchair more than a few feet and thus it would not be able to be effectively used in his home or outside of the home. He will continue to decline physically due to the metastatic cancer and he will need a way to be mobile in and outside of his home for continued quality of life. I have recommended a powered scooter. His family will look into a powered scooter through [employer]. Toan could reliably run a powered scooter. I have recommended that if Medicare denies the purchase of a powered scooter through [employer] that they need to look at purchase of a powered scooter through other means - perhaps a used scooter if they can find one that is in good shape. DM - pt does not check his fsbs very regularly - is not reliable for checking his sugars or taking his medications. With his metastatic hepatocellular carcinoma, and esophageal varicies - he is at high risk for further deterioration in his symptoms and in his diabetic control. However, Toan continues to live at home alone with his sisters visiting frequently, but they cannot control his dietary intake as they are not in the home 24 hours a day. Toan remains non-compliant with our recommendations and medical interventions. Hypertension - well controlled - continue with current medications, continue with no added salt diet. Pt has been encouraged to exercise daily. The pt has been advised to call the office if there are any acute concerns about change in blood pressure readings at home. 03/18/2018 Appointment: Ayesha Lyn WPtel: [address] [place], [place] [id number] (15 min) Moderate 03/18/2018 Patient Education: Patient Medication Summary Completed 03/18/2018 Visit Plan: Welcome to Medicare Exam - today we discussed the patients past history, immunizations, preventative exams/evaluations - colonoscopy, fecal occult blood testing, routine labs for renal function, glucose, cholesterol, osteoporosis evaluations, cardiovascular testing and cancer screenings. We have also discussed mental health and the signs/symptoms of depression. The patient was advised of home safety evaluations and the need to make sure that as the aging process continues, we need to be aware of different ways to make the home a safer place to reside. The patient has also been counseled that exercise is necessary - and of utmost importance as we age to help decrease fall risk and to maintain independence in the home. 01/26/2018 Visit Plan: Welcome to Medicare Exam - today we discussed the patients past history, immunizations, preventative exams/evaluations - colonoscopy, fecal occult blood testing, routine labs for renal function, glucose, cholesterol, osteoporosis evaluations, cardiovascular testing and cancer screenings. We have also discussed mental health and the signs/symptoms of depression. The patient was advised of home safety evaluations and the need to make sure that as the aging process continues, we need to be aware of different ways to make the home a safer place to reside. The patient has also been counseled that exercise is necessary - and of utmost importance as we age to help decrease fall risk and to maintain independence in the home. 01/26/2018 Visit Plan: Welcome to Medicare Exam - today we discussed the patients past history, immunizations, preventative exams/evaluations - colonoscopy, fecal occult blood testing, routine labs for renal function, glucose, cholesterol, osteoporosis evaluations, cardiovascular testing and cancer screenings. We have also discussed mental health and the signs/symptoms of depression. The patient was advised of home safety evaluations and the need to make sure that as the aging process continues, we need to be aware of different ways to make the home a safer place to reside. The patient has also been counseled that exercise is necessary - and of utmost importance as we age to help decrease fall risk and to maintain independence in the home. 01/26/2018 Patient Education: Patient Medication Summary Completed 01/26/2018 Visit Plan: Diabetes Mellitus - controlled - per recent FSBS reports. I have recommended for the patient to have follow up labs prior to the next office visit. The patient has been instructed to continue with current medications as previously directed, continue with regular FSBS monitoring to assure continued control of diabetes. Pt to call for any acute concerns, complaints, or if the blood glucose readings are starting to become less controlled. Hypertension - well controlled - continue with current medications, continue with no added salt diet. Pt has been encouraged to exercise daily. The pt has been advised to call the office if there are any acute concerns about change in blood pressure readings at home. Chronic Pain Syndrome - pt has chronic pain - has been maintained on current medications, has not sought out other medications, only uses PRN pain medications as directed , and understands the consequences of over-medication. refilled pain medication today. 01/06/2018 Appointment: Ayesha Lyn WPtel: [id number] (15 min) Moderate 01/06/2018 Patient Education: Patient Medication Summary Completed 01/06/2018 Visit Plan: Hypertension - well controlled - continue with current medications, continue with no added salt diet. Pt has been encouraged to exercise daily. The pt has been advised to call the office if there are any acute concerns about change in blood pressure readings at home. DM - unsure of level of control as Toan does not check his FSBS at home. He is getting his shots routinely. Cough - Mucinex DM bid for cough. Chronic pain syndrome - refilled Morphine COPD/CAD - toan uses his oxygen intermittently - when he does use the oxygen he has benefit from the oxygen, however due to his memory loss, he is not as consistent at wearing the oxygen as he should be, but when he does , his family notices an improvement in his function physically and mentally. 09/28/2017 Visit Plan: Hypertension - well controlled - continue with current medications, continue with no added salt diet. Pt has been encouraged to exercise daily. The pt has been advised to call the office if there are any acute concerns about change in blood pressure readings at home. DM - unsure of level of control as Toan does not check his FSBS at home. He is getting his shots routinely. Cough - Mucinex DM bid for cough. Chronic pain syndrome - refilled Morphine 09/28/2017 Appointment: Ayesha Lyn WPtel: [address] [facility] (15 min) Moderate 09/28/2017 Patient Education: Patient Medication Summary Completed 09/28/2017 Patient Education: Diabetes Completed 09/28/2017 Visit Plan: Hypertension - well controlled - continue with current medications, continue with no added salt diet. Pt has been encouraged to exercise daily. The pt has been advised to call the office if there are any acute concerns about change in blood pressure readings at home. Diabetes Mellitus - controlled - per recent FSBS reports. I have recommended for the patient to have follow up labs prior to the next office visit. The patient has been instructed to continue with current medications as previously directed, continue with regular FSBS monitoring to assure continued control of diabetes. Pt to call for any acute concerns, complaints, or if the blood glucose readings are starting to become less controlled. Jaundice with Hepatocellular carcinoma - RX for labs - pt is not taking his lactulose as he has been directed and he is continuing to have pain as well as elevation in his alk phos on his last labs in May. 07/29/2017 Appointment: Ayesha Lyn [facility]Ptel[facility] [address] [facility] (15 min) Moderate 07/29/2017 Patient Education: Patient Medication Summary Completed 07/29/2017 Patient Education: Smoking and Tobacco Addiction Completed 07/29/2017 Patient Education: Obesity Completed 07/29/2017 Visit Plan: Hypertension - well controlled - continue with current medications, continue with no added salt diet. Pt has been encouraged to exercise daily. The pt has been advised to call the office if there are any acute concerns about change in blood pressure readings at home. Diabetes Mellitus - controlled - per recent FSBS reports. I have recommended for the patient to have follow up labs prior to the next office visit. The patient has been instructed to continue with current medications as previously directed, continue with regular FSBS monitoring to assure continued control of diabetes. Pt to call for any acute concerns, complaints, or if the blood glucose readings are starting to become less controlled. flu shot today Hx of TIPS due to Cirrhosis and hepatitis C - with esophageal varices - needs repeat CT scan and ultrasound of abdomen. 05/28/2017 Appointment: Ayesha Lyn WPtel: [facility] [place] (15 min) Moderate 05/28/2017 Patient Education: Patient Medication Summary Completed 05/28/2017 Patient Education: Smoking and Tobacco Addiction Completed 05/28/2017 Patient Education: Obesity Completed 05/28/2017 Patient Education: Hypertension Completed 05/28/2017 Visit Plan: Hypertension - well controlled - continue with current medications, continue with no added salt diet. Pt has been encouraged to exercise daily. The pt has been advised to call the office if there are any acute concerns about change in blood pressure readings at home. Diabetes Mellitus - controlled - per recent FSBS reports. I have recommended for the patient to have follow up labs prior to the next office visit. The patient has been instructed to continue with current medications as previously directed, continue with regular FSBS monitoring to assure continued control of diabetes. Pt to call for any acute concerns, complaints, or if the blood glucose readings are starting to become less controlled. Stop lantus - RX for bydureon. Recurrent nose bleeds - recommended the following to the patient: use the saline gel in your nose daily x 1 week then twice a week thereafter. Tobaccoism - again recommended patient to stop smoking. 04/02/2017 Visit Plan: Hypertension - well controlled - continue with current medications, continue with no added salt diet. Pt has been encouraged to exercise daily. The pt has been advised to call the office if there are any acute concerns about change in blood pressure readings at home. Diabetes Mellitus - controlled - per recent FSBS reports. I have recommended for the patient to have follow up labs prior to the next office visit. The patient has been instructed to continue with current medications as previously directed, continue with regular FSBS monitoring to assure continued control of diabetes. Pt to call for any acute concerns, complaints, or if the blood glucose readings are starting to become less controlled. Stop lantus - RX for bydureon. Recurrent nose bleeds - recommended the following to the patient: use the saline gel in your nose daily x 1 week then twice a week thereafter. Tobaccoism - again recommended patient to stop smoking. 04/02/2017 Visit Plan: Hypertension - well controlled - continue with current medications, continue with no added salt diet. Pt has been encouraged to exercise daily. The pt has been advised to call the office if there are any acute concerns about change in blood pressure readings at home. Diabetes Mellitus - controlled - per recent FSBS reports. I have recommended for the patient to have follow up labs prior to the next office visit. The patient has been instructed to continue with current medications as previously directed, continue with regular FSBS monitoring to assure continued control of diabetes. Pt to call for any acute concerns, complaints, or if the blood glucose readings are starting to become less controlled. Stop lantus - RX for bydureon. Recurrent nose bleeds - recommended the following to the patient: use the saline gel in your nose daily x 1 week then twice a week thereafter. Tobaccoism - again recommended patient to stop smoking. 04/02/2017 Appointment: Ayesha Lyn WPtel: [address] [place], [place] [id number] (15 min) Moderate 04/02/2017 Patient Education: Patient Medication Summary Completed 04/02/2017 Patient Education: Smoking and Tobacco Addiction Completed 04/02/2017 Patient Education: Malnutrition Completed 04/02/2017 Patient Education: Obesity Completed 04/02/2017 Patient Education: Hypertension Completed 04/02/2017 Visit Plan: Hypertension - well controlled - continue with current medications, continue with no added salt diet. Pt has been encouraged to exercise daily. The pt has been advised to call the office if there are any acute concerns about change in blood pressure readings at home. Diabetes Mellitus - controlled - per recent FSBS reports. I have recommended for the patient to have follow up labs prior to the next office visit. The patient has been instructed to continue with current medications as previously directed, continue with regular FSBS monitoring to assure continued control of diabetes. Pt to call for any acute concerns, complaints, or if the blood glucose readings are starting to become less controlled. family call to see if he can have a paid caregiver in the house to help with insulin injections and other care needs. Paperwork today - patient is no longer to drive. Chronic Pain Syndrome - pt has chronic pain - has been maintained on current medications, has not sought out other medications, only uses PRN pain medications as directed, and understands the consequences of over-medication. 03/04/2017 Appointment: Ayesha Lyn WPtel: [address] [id number] (15 min) Moderate 03/04/2017 Patient Education: Patient Medication Summary Completed 03/04/2017 Patient Education: Smoking and Tobacco Addiction Completed 03/04/2017 Patient Education: Obesity Completed 03/04/2017 Patient Education: Hypertension Completed 03/04/2017 Visit Plan: Diabetes Mellitus - Uncontrolled - per recent FSBS reports. I have recommended for the patient to have follow up labs prior to the next office visit. The patient has been instructed to continue with current medications as previously directed, continue with regular FSBS monitoring to assure continued control of diabetes. Pt to call for any acute concerns, complaints, or if the blood glucose readings are starting to become less controlled. I have recommended for the patient to follow more strictly to the diabetic diet as discussed in clinic to allow for greater blood glucose control. Increase lantus to 15 units . Hepatic failure due to liver cancer - continue with Xifaxan. Insomnia - refill trazodone. Pt has been advised that he is not to drive. I have advised him that I will send a note to the [facility] about the need to remove his driving privileges. 02/05/2017 Patient Education: Patient Medication Summary Completed 02/05/2017 Patient Education: Smoking and Tobacco Addiction Completed 02/05/2017 Patient Education: Obesity Completed 02/05/2017 Patient Education: Hypertension Completed 02/05/2017 Appointment: Ayesha Lyn WPtel: [address] [facility] [place] (15 min) Moderate 02/03/2017 Appointment: Eunice Betancourt WPtel: [facility] [id number] [place] (30 min) Complex 01/06/2017 Appointment: Eunice Betancourt WPtel: [address] [facility] [place] (15 min) Moderate 01/01/2017 Visit Plan: Cough, shortness of breath - Pt was sent for outpatient chest x-ray and EKG - at the hospital he started feeling worse and went to the ER. 12/22/2016 Appointment: Ayesha Lyn WPtel: [address] [facility] [place] (15 min) Moderate 12/22/2016 Appointment: Eunice Betancourt WPtel: [facility] [address] [place] (15 min) Moderate 12/22/2016 Patient Education: Patient Medication Summary Completed 12/22/2016 Patient Education: Smoking and Tobacco Addiction Completed 12/22/2016 Patient Education: Obesity Completed 12/22/2016 Appointment: Lab Draw 12/18/2016 Patient Education: Patient Medication Summary Completed 12/04/2016 Visit Plan: Liver failure, status post - TIPS blockage - called to Dr. Peres - he will do repeat liver ultrasound, paracentesis. 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 The radiologist reports that he called the processing associate at but never got to speak to him personally - left a voice mail for him. The pe is in need of a repeat CT of abdomen and pelvis per last hepatology note - CT of abdomen and pelvis with and without contrast. Pt has not been taking his lactulose as previously directed and our local interventional radiologist is hesitant to open up the TIPS without the pt routinely taking his lactulose. 09/08/2016 Appointment: Ayesha Lyn WPtel: [facility] [place] (15 min) Moderate 09/08/2016 Patient Education: Patient Medication Summary Completed 09/08/2016 Patient Education: Obesity Completed 09/08/2016 Care Plan: US EXAM ABDOM COMPLETE Pending 09/08/2016 Visit Plan: Hypertension - well controlled - continue with current medications, continue with no added salt diet. Pt has been encouraged to exercise daily. The pt has been advised to call the office if there are any acute concerns about change in blood pressure readings at home. Liver failure - chronic - due to hepatocellular carcinoma - pt is not taking his lactulose as directed - he is again reminded of need to take the lactulose as directed - pt' s sister is supportive of his need to take the medication - but cannot force the medication compliance. 08/19/2016 Appointment: Ayesha Lyn WPtel: [address] [facility] (15 min) Moderate 08/19/2016 Patient Education: Patient Medication Summary Completed 08/19/2016 Patient Education: Smoking and Tobacco Addiction Completed 08/19/2016 Visit Plan: Diabetes Mellitus - controlled - per recent FSBS reports. I have recommended for the patient to have follow up labs prior to the next office visit. The patient has been instructed to continue with current medications as previously directed, continue with regular FSBS monitoring to assure continued control of diabetes. Pt to call for any acute concerns, complaints, or if the blood glucose readings are starting to become less controlled. Hypertension - well controlled - continue with current medications, continue with no added salt diet. Pt has been encouraged to exercise daily. The pt has been advised to call the office if there are any acute concerns about change in blood pressure readings at home. Chronic pain syndrome - refill on chronic pain medication - no change in dose He has been non -compliant with use of lactulose - he was counseled about need to restart daily use of medication - as lack of use of the lactulose increases risk of elevated ammonia levels and increased risk of confusion. 07/21/2016 Appointment: Ayesha Lyn WPtel: [address] [facility] (15 min) Moderate 07/21/2016 Patient Education: Patient Medication Summary Completed 07/21/2016 Patient Education: Smoking and Tobacco Addiction Completed 07/21/2016 Patient Education: Obesity Completed 07/21/2016 Visit Plan: Diabetes Mellitus - controlled - per recent FSBS reports. I have recommended for the patient to have follow up labs prior to the next office visit. The patient has been instructed to continue with current medications as previously directed, continue with regular FSBS monitoring to assure continued control of diabetes. Pt to call for any acute concerns, complaints, or if the blood glucose readings are starting to become less controlled. Tobacco abuse - pt was counseled about stopping smoking - but Toan states that he is not interested in stopping smoking. Abdominal pain - ruq - stable - no chagne in treatment - defer to [facility] physician. 04/22/2016 Appointment: Ayesha Lyn WPtel: [address] [facility] (15 min) Moderate 04/22/2016 Patient Education: Patient Medication Summary Completed 04/22/2016 Patient Education: Smoking and Tobacco Addiction Completed 04/22/2016 Patient Education: Obesity Completed 04/22/2016 Care Plan: ECHO EXAM OF ABDOMEN Pending 04/22/2016 Visit Plan: Diabetes Mellitus - controlled - per recent FSBS reports. I have recommended for the patient to have follow up labs prior to the next office visit. The patient has been instructed to continue with current medications as previously directed, continue with regular FSBS monitoring to assure continued control of diabetes. Pt to call for any acute concerns, complaints, or if the blood glucose readings are starting to become less controlled. Hypertension - well controlled - continue with current medications, continue with no added salt diet. Pt has been encouraged to exercise daily. The pt has been advised to call the office if there are any acute concerns about change in blood pressure readings at home. Insomnia - continue with trazodone, monitor symptoms of insomnia. Chronic pain syndrome - refill on chronic pain medication - no change in dose despite pt's request for increase in dose of medication. He has been non-compliant with use of lactulose - he was counseled about need to restart daily use of medication. 01/22/2016 Patient Education: Patient Medication Summary Completed 01/22/2016 Patient Education: Smoking and Tobacco Addiction Completed 01/22/2016 Patient Education: Obesity Completed 01/22/2016 Patient Education: Hypertension Completed 01/22/2016 Visit Plan: UTI - pt with positive urinalysis - culture sent if appropriate. Antibiotic electronically prescribed to pt's pharmacy of choice. Pt to call if symptoms do not improve. 01/04/2016 Appointment: Lexus Black WPtel: [address] [phone] [place] (30 min) Complex 01/04/2016 Patient Education: Patient Medication Summary Completed 01/04/2016 Patient Education: Smoking and Tobacco Addiction Completed 01/04/2016 Patient Education: Patient Medication Summary Completed 01/04/2016 Visit Plan: Hospital follow up - This was a follow up appointment from the patient's hospitalization during which time Dr. Lyn formulated the assessment and plan for the follow up on this patient's medical condition. Hypertension - well controlled - continue with current medications, continue with no added salt diet. Pt has been encouraged to exercise daily. The pt has been advised to call the office if there are any acute concerns about change in blood pressure readings at home. Chronic Pain Syndrome - pt has chronic pain - has been maintained on current medications, has not sought out other medications, only uses PRN pain medications as directed, and understands the consequences of over-medication. 11/16/2015 Appointment: (30 min) Complex 11/16/2015 Patient Education: Patient Medication Summary Completed 11/16/2015 Patient Education: Smoking and Tobacco Addiction Completed 11/16/2015 Patient Education: Obesity Completed 11/16/2015 Visit Plan: Hypertension - well controlled - continue with current medications, continue with no added salt diet. Pt has been encouraged to exercise daily. The pt has been advised to call the office if there are any acute concerns about change in blood pressure readings at home. Diabetes Mellitus - controlled - per recent FSBS reports. I have recommended for the patient to have follow up labs prior to the next office visit. The patient has been instructed to continue with current medications as previously directed, continue with regular FSBS monitoring to assure continued control of diabetes. Pt to call for any acute concerns, complaints, or if the blood glucose readings are starting to become less controlled. Chronic Pain Syndrome - pt has chronic pain - has been maintained on current medications, has not sought out other medications, only uses PRN pain medications as directed, and understands the consequences of over-medication. Nose ulceration - rx for mupirocin 10/23/2015 Patient Education: Patient Medication Summary Completed 10/23/2015 Patient Education: Smoking and Tobacco Addiction Completed 10/23/2015 Patient Education: Obesity Completed 10/23/2015 Patient Education: Hypertension Completed 10/23/2015 Appointment: Lexus Black WPtel: [address] [place], [place] [id number] (15 min) Moderate 09/18/2015 Visit Plan: Diabetes Mellitus - controlled - per recent FSBS reports. I have recommended for the patient to have follow up labs prior to the next office visit. The patient has been instructed to continue with current medications as previously directed, continue with regular FSBS monitoring to assure continued control of diabetes. Pt to call for any acute concerns, complaints, or if the blood glucose readings are starting to become less controlled. Hypertension - well controlled - continue with current medications, continue with no added salt diet. Pt has been encouraged to exercise daily. The pt has been advised to call the office if there are any acute concerns about change in blood pressure readings at home. Dyspnea - recommended pt to start on Advair - sample given to patient. RTC in 2 weeks. 2015 Appointment: Ayesha Lyn WPtel: [facility]5 [facility]66[facility] (15 min) Moderate 2015 Patient Education: Patient Medication Summary Completed 2015 Visit Plan: Diabetes Mellitus - controlled - per recent FSBS reports. I have recommended for the patient to have follow up labs prior to the next office visit. The patient has been instructed to continue with current medications as previously directed, continue with regular FSBS monitoring to assure continued control of diabetes. Pt to call for any acute concerns, complaints, or if the blood glucose readings are starting to become less controlled. Chronic Pain Syndrome - pt has chronic pain - has been maintained on current medications, has not sought out other medications, only uses PRN pain medications as directed, and understands the consequences of over- medication. Insomnia- recommended extended release melatonin and warm milk if this does not work, we will consider an increase in trazodone. 05/15/2015 Appointment: Ayesha Lyn WPtel: [facility]5 [id number] (15 min) Moderate 05/15/2015 Patient Education: Patient Medication Summary Completed 05/15/2015 Appointment: Ayesha Lyn WPtel: [id number] (15 min) Moderate 05/09/2015 Visit Plan: Diabetes Mellitus - controlled - per recent FSBS reports. I have recommended for the patient to have follow up labs prior to the next office visit. The patient has been instructed to continue with current medications as previously directed, continue with regular FSBS monitoring to assure continued control of diabetes. Pt to call for any acute concerns, complaints, or if the blood glucose readings are starting to become less controlled. Chronic Pain Syndrome - pt has chronic pain - has been maintained on current medications, has not sought out other medications, only uses PRN pain medications as directed, and understands the consequences of over- medication.. Hepatitis C pt seeing specialist in [place] at [facility]. Umbilical hernia - surgery being planned. 03/22/2015 Appointment: [facility]yes[facility] Lyn [facility] [phone] [id number] [place] Follow up 03/22/2015 Patient Education: Patient Medication Summary Completed 03/22/2015 Patient Education: Hypertension Completed 03/22/2015 Visit Plan: UTI-hospital follow up-symptoms resolved- monitor Lesion of wxxuk-verqhvzbah-silugfjbis, Dr Basilio, at suspects cancer- will follow up with Umbilical hernia-appt with Dr Murdock February 08 Chronic back pain-refill morphine-instructed patient and sisters to use as needed for pain and call if pain is uncontrolled 01/23/2015 Appointment: (15 min) Moderate 01/23/2015 Patient Education: Patient Medication Summary Completed 01/23/2015 Visit Plan: Diabetes Mellitus - controlled - per recent FSBS reports. I have recommended for the patient to have follow up labs prior to the next office visit. The patient has been instructed to continue with current medications as previously directed, continue with regular FSBS monitoring to assure continued control of diabetes. Pt to call for any acute concerns, complaints, or if the blood glucose readings are starting to become less controlled. Chronic Pain Syndrome - pt has chronic pain - has been maintained on current medications, has not sought out other medications, only uses PRN pain medications as directed, and understands the consequences of over- medication. Low back pain- the patient was instructed in appropriate posture, need for weight loss to alleviate abdominal obesity that is worsening the patient's back pain.. The pt is to use prn antiinflammatories to manage acute pain. The patient is to call the office if the pain is worsening or does not improve. Hepatitis C pt sees hepatology at [facility] . 12/20/2014 Appointment: Ayesha Lny [facility]el[facility] [address] [facility] [place] ([place] New Patient 12/20/2014 Patient Education: Patient Medication Summary Completed 12/20/2014 Patient Education: Hypertension Completed 12/20/2014 Instructions Comment . Hypertension - well controlled - continue with current medications, continue with no added salt diet. Pt has been encouraged to exercise daily. The pt has been advised to call the office if there are any acute concerns about change in blood pressure readings at home. Liver failure - chronic - due to hepatocellular carcinoma - pt is not taking his lactulose as directed - he is again reminded of need to take the lactulose as directed - pt's sister is supportive of his need to take the medication - but cannot force the medication compliance. . Hospital follow up - This was a follow up appointment from the patient's hospitalization during which time Dr. Lyn formulated the assessment and plan for the follow up on this patient's medical condition. Hypertension - well controlled - continue with current medications, continue with no added salt diet. Pt has been encouraged to exercise daily. The pt has been advised to call the office if there are any acute concerns about change in blood pressure readings at home. Chronic Pain Syndrome - pt has chronic pain - has been maintained on current medications, has not sought out other medications, only uses PRN pain medications as directed, and understands the consequences of over-medication. . Hypertension - well controlled - continue with current medications, continue with no added salt diet. Pt has been encouraged to exercise daily. The pt has been advised to call the office if there are any acute concerns about change in blood pressure readings at home. Diabetes Mellitus - controlled - per recent FSBS reports. I have recommended for the patient to have follow up labs prior to the next office visit. The patient has been instructed to continue with current medications as previously directed, continue with regular FSBS monitoring to assure continued control of diabetes. Pt to call for any acute concerns, complaints, or if the blood glucose readings are starting to become less controlled. family call to see if he can have a paid caregiver in the house to help with insulin injections and other care needs. Paperwork today - patient is no longer to drive. Chronic Pain Syndrome - pt has chronic pain - has been maintained on current medications, has not sought out other medications, only uses PRN pain medications as directed, and understands the consequences of over-medication. . Hypertension - well controlled - continue with current medications, continue with no added salt diet. Pt has been encouraged to exercise daily. The pt has been advised to call the office if there are any acute concerns about change in blood pressure readings at home. Diabetes Mellitus - controlled - per recent FSBS reports. I have recommended for the patient to have follow up labs prior to the next office visit. The patient has been instructed to continue with current medications as previously directed, continue with regular FSBS monitoring to assure continued control of diabetes. Pt to call for any acute concerns, complaints, or if the blood glucose readings are starting to become less controlled. Jaundice with Hepatocellular carcinoma - RX for labs - pt is not taking his lactulose as he has been directed and he is continuing to have pain as well as elevation in his alk phos on his last labs in May. . COPD - rx to [facility] for mask instead of [place] DM - pt does not check his fsbs very regularly - is not reliable for checking his sugars or taking his medications. With his metastatic hepatocellular carcinoma, and esophageal varicies - he is at high risk for further deterioration in his symptoms and in his diabetic control. However, oTan continues to live at home alone with his sisters visiting frequently, but they cannot control his dietary intake as they are not in the home 24 hours a day. Toan remains non-compliant with our recommendations and medical interventions. Hypertension - well controlled - continue with current medications, continue with no added salt diet. Pt has been encouraged to exercise daily. The pt has been advised to call the office if there are any acute concerns about change in blood pressure readings at home. Chronic Pain Syndrome - pt has chronic pain - has been maintained on current medications, has not sought out other medications, only uses PRN pain medications as directed, and understands the consequences of over-medication. . Diabetes Mellitus - controlled - per recent FSBS reports. I have recommended for the patient to have follow up labs prior to the next office visit. The patient has been instructed to continue with current medications as previously directed, continue with regular FSBS monitoring to assure continued control of diabetes. Pt to call for any acute concerns, complaints, or if the blood glucose readings are starting to become less controlled. Chronic Pain Syndrome - pt has chronic pain - has been maintained on current medications, has not sought out other medications, only uses PRN pain medications as directed, and understands the consequences of over-medication. Insomnia- recommended extended release melatonin and warm milk if this does not work, we will consider an increase in trazodone. . UTI-hospital follow up-symptoms resolved-monitor Lesion of uqric-arldtahopr-abamwyhntq, Dr Basilio, at suspects cancer-will follow up with Umbilical hernia-appt with Dr Murdock February 08 Chronic back pain-refill morphine-instructed patient and sisters to use as needed for pain and call if pain is uncontrolled . Diabetes Mellitus - controlled - per recent FSBS reports. I have recommended for the patient to have follow up labs prior to the next office visit. The patient has been instructed to continue with current medications as previously directed, continue with regular FSBS monitoring to assure continued control of diabetes. Pt to call for any acute concerns, complaints, or if the blood glucose readings are starting to become less controlled. Hypertension - well controlled - continue with current medications, continue with no added salt diet. Pt has been encouraged to exercise daily. The pt has been advised to call the office if there are any acute concerns about change in blood pressure readings at home. Dyspnea - recommended pt to start on Advair - sample given to patient. RTC in 2 weeks. [facility] through [employer] . Hypertension - well controlled - continue with current medications, continue with no added salt diet. Pt has been encouraged to exercise daily. The pt has been advised to call the office if there are any acute concerns about change in blood pressure readings at home. Diabetes Mellitus - controlled - per recent FSBS reports. I have recommended for the patient to have follow up labs prior to the next office visit. The patient has been instructed to continue with current medications as previously directed, continue with regular FSBS monitoring to assure continued control of diabetes. Pt to call for any acute concerns, complaints, or if the blood glucose readings are starting to become less controlled. flu shot today Hx of TIPS due to Cirrhosis and hepatitis C - with esophageal varices - needs repeat CT scan and ultrasound of abdomen. restart lactulose as previously prescribed . Liver failure, status post - TIPS blockage - called to Dr. Peres - he will do repeat liver ultrasound, paracentesis. 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 The radiologist reports that he called the processing associate at but never got to speak to him personally - left a voice mail for him. The pe is in need of a repeat CT of abdomen and pelvis per last hepatology note - CT of abdomen and pelvis with and without contrast. Pt has not been taking his lactulose as previously directed and our local interventional radiologist is hesitant to open up the TIPS without the pt routinely taking his lactulose. . Welcome to Medicare Exam - today we discussed the patients past history, immunizations, preventative exams/evaluations - colonoscopy, fecal occult blood testing, routine labs for renal function, glucose, cholesterol, osteoporosis evaluations, cardiovascular testing and cancer screenings. We have also discussed mental health and the signs/symptoms of depression. The patient was advised of home safety evaluations and the need to make sure that as the aging process continues, we need to be aware of different ways to make the home a safer place to reside. The patient has also been counseled that exercise is necessary - and of utmost importance as we age to help decrease fall risk and to maintain independence in the home. . Welcome to Medicare Exam - today we discussed the patients past history, immunizations, preventative exams/evaluations - colonoscopy, fecal occult blood testing, routine labs for renal function, glucose, cholesterol, osteoporosis evaluations, cardiovascular testing and cancer screenings. We have also discussed mental health and the signs/symptoms of depression. The patient was advised of home safety evaluations and the need to make sure that as the aging process continues, we need to be aware of different ways to make the home a safer place to reside. The patient has also been counseled that exercise is necessary - and of utmost importance as we age to help decrease fall risk and to maintain independence in the home. . Welcome to Medicare Exam - today we discussed the patients past history, immunizations, preventative exams/evaluations - colonoscopy, fecal occult blood testing, routine labs for renal function, glucose, cholesterol, osteoporosis evaluations, cardiovascular testing and cancer screenings. We have also discussed mental health and the signs/symptoms of depression. The patient was advised of home safety evaluations and the need to make sure that as the aging process continues, we need to be aware of different ways to make the home a safer place to reside. The patient has also been counseled that exercise is necessary - and of utmost importance as we age to help decrease fall risk and to maintain independence in the home. . Cough, shortness of breath - Pt was sent for outpatient chest x-ray and EKG - at the hospital he started feeling worse and went to the ER. . Diabetes Mellitus - Uncontrolled - per recent FSBS reports. I have recommended for the patient to have follow up labs prior to the next office visit. The patient has been instructed to continue with current medications as previously directed, continue with regular FSBS monitoring to assure continued control of diabetes. Pt to call for any acute concerns, complaints, or if the blood glucose readings are starting to become less controlled. I have recommended for the patient to follow more strictly to the diabetic diet as discussed in clinic to allow for greater blood glucose control. Increase lantus to 15 units . Hepatic failure due to liver cancer - continue with Xifaxan. Insomnia - refill trazodone. Pt has been advised that he is not to drive. I have advised him that I will send a note to the [facility] about the need to remove his driving privileges. use the saline gel in your nose daily x 1 week then twice a week thereafter . Hypertension - well controlled - continue with current medications, continue with no added salt diet. Pt has been encouraged to exercise daily. The pt has been advised to call the office if there are any acute concerns about change in blood pressure readings at home. Diabetes Mellitus - controlled - per recent FSBS reports. I have recommended for the patient to have follow up labs prior to the next office visit. The patient has been instructed to continue with current medications as previously directed, continue with regular FSBS monitoring to assure continued control of diabetes. Pt to call for any acute concerns, complaints, or if the blood glucose readings are starting to become less controlled. Stop lantus - RX for bydureon. Recurrent nose bleeds - recommended the following to the patient: use the saline gel in your nose daily x 1 week then twice a week thereafter. Tobaccoism - again recommended patient to stop smoking. use the saline gel in your nose daily x 1 week then twice a week thereafter . Hypertension - well controlled - continue with current medications, continue with no added salt diet. Pt has been encouraged to exercise daily. The pt has been advised to call the office if there are any acute concerns about change in blood pressure readings at home. Diabetes Mellitus - controlled - per recent FSBS reports. I have recommended for the patient to have follow up labs prior to the next office visit. The patient has been instructed to continue with current medications as previously directed, continue with regular FSBS monitoring to assure continued control of diabetes. Pt to call for any acute concerns, complaints, or if the blood glucose readings are starting to become less controlled. Stop lantus - RX for bydureon. Recurrent nose bleeds - recommended the following to the patient: use the saline gel in your nose daily x 1 week then twice a week thereafter. Tobaccoism - again recommended patient to stop smoking. use the saline gel in your nose daily x 1 week then twice a week thereafter . Hypertension - well controlled - continue with current medications, continue with no added salt diet. Pt has been encouraged to exercise daily. The pt has been advised to call the office if there are any acute concerns about change in blood pressure readings at home. Diabetes Mellitus - controlled - per recent FSBS reports. I have recommended for the patient to have follow up labs prior to the next office visit. The patient has been instructed to continue with current medications as previously directed, continue with regular FSBS monitoring to assure continued control of diabetes. Pt to call for any acute concerns, complaints, or if the blood glucose readings are starting to become less controlled. Stop lantus - RX for bydureon. Recurrent nose bleeds - recommended the following to the patient: use the saline gel in your nose daily x 1 week then twice a week thereafter. Tobaccoism - again recommended patient to stop smoking. . Diabetes Mellitus - controlled - per recent FSBS reports. I have recommended for the patient to have follow up labs prior to the next office visit. The patient has been instructed to continue with current medications as previously directed, continue with regular FSBS monitoring to assure continued control of diabetes. Pt to call for any acute concerns, complaints, or if the blood glucose readings are starting to become less controlled. Hypertension - well controlled - continue with current medications, continue with no added salt diet. Pt has been encouraged to exercise daily. The pt has been advised to call the office if there are any acute concerns about change in blood pressure readings at home. Chronic Pain Syndrome - pt has chronic pain - has been maintained on current medications, has not sought out other medications, only uses PRN pain medications as directed, and understands the consequences of over-medication. refilled pain medication today. . Hypertension - well controlled - continue with current medications, continue with no added salt diet. Pt has been encouraged to exercise daily. The pt has been advised to call the office if there are any acute concerns about change in blood pressure readings at home. Diabetes Mellitus - controlled - per recent FSBS reports. I have recommended for the patient to have follow up labs prior to the next office visit. The patient has been instructed to continue with current medications as previously directed, continue with regular FSBS monitoring to assure continued control of diabetes. Pt to call for any acute concerns, complaints, or if the blood glucose readings are starting to become less controlled. Chronic Pain Syndrome - pt has chronic pain - has been maintained on current medications, has not sought out other medications, only uses PRN pain medications as directed, and understands the consequences of over-medication. Nose ulceration - rx for mupirocin . Diabetes Mellitus - controlled - per recent FSBS reports. I have recommended for the patient to have follow up labs prior to the next office visit. The patient has been instructed to continue with current medications as previously directed, continue with regular FSBS monitoring to assure continued control of diabetes. Pt to call for any acute concerns, complaints, or if the blood glucose readings are starting to become less controlled. Hypertension - well controlled - continue with current medications, continue with no added salt diet. Pt has been encouraged to exercise daily. The pt has been advised to call the office if there are any acute concerns about change in blood pressure readings at home. Chronic pain syndrome - refill on chronic pain medication - no change in dose He has been non-compliant with use of lactulose - he was counseled about need to restart daily use of medication - as lack of use of the lactulose increases risk of elevated ammonia levels and increased risk of confusion. . Musculo-skeletal weakness - due to liver failure, metastatic hepatocellular carcinoma to lungs. He has increased difficulty getting around in his home due to his weakness, he cannot ambulate more than 20 feet without stopping to rest and he cannot ambulate outside of his home without assistance. He cannot use a walker or cane for ambulation due to his weakness and inability to rest with his walker or cane for recovery of his symptoms. He has initial power in his arms which would allow him to use a manual wheelchair, however he has such easy fatigue that he would not be able to power the wheelchair more than a few feet and thus it would not be able to be effectively used in his home or outside of the home. He will continue to decline physically due to the metastatic cancer and he will need a way to be mobile in and outside of his home for continued quality of life. I have recommended a powered scooter. His family will look into a powered scooter through [employer]. Toan could reliably run a powered scooter. I have recommended that if Medicare denies the purchase of a powered scooter through [employer] that they need to look at purchase of a powered scooter through other means - perhaps a used scooter if they can find one that is in good shape. DM - pt does not check his fsbs very regularly - is not reliable for checking his sugars or taking his medications. With his metastatic hepatocellular carcinoma, and esophageal varicies - he is at high risk for further deterioration in his symptoms and in his diabetic control. However, Toan continues to live at home alone with his sisters visiting frequently, but they cannot control his dietary intake as they are not in the home 24 hours a day. Toan remains non-compliant with our recommendations and medical interventions. Hypertension - well controlled - continue with current medications, continue with no added salt diet. Pt has been encouraged to exercise daily. The pt has been advised to call the office if there are any acute concerns about change in blood pressure readings at home. . Musculo-skeletal weakness - due to liver failure, metastatic hepatocellular carcinoma to lungs. He has increased difficulty getting around in his home due to his weakness, he cannot ambulate more than 20 feet without stopping to rest and he cannot ambulate outside of his home without assistance. He cannot use a walker or cane for ambulation due to his weakness and inability to rest with his walker or cane for recovery of his symptoms. He has initial power in his arms which would allow him to use a manual wheelchair, however he has such easy fatigue that he would not be able to power the wheelchair more than a few feet and thus it would not be able to be effectively used in his home or outside of the home. He will continue to decline physically due to the metastatic cancer and he will need a way to be mobile in and outside of his home for continued quality of life. I have recommended a powered scooter. His family will look into a powered scooter through [employer]. Toan could reliably run a powered scooter. I have recommended that if Medicare denies the purchase of a powered scooter through [employer] that they need to look at purchase of a powered scooter through other means - perhaps a used scooter if they can find one that is in good shape. DM - pt does not check his fsbs very regularly - is not reliable for checking his sugars or taking his medications. With his metastatic hepatocellular carcinoma, and esophageal varicies - he is at high risk for further deterioration in his symptoms and in his diabetic control. However, oTan continues to live at home alone with his sisters visiting frequently, but they cannot control his dietary intake as they are not in the home 24 hours a day. Toan remains non-compliant with our recommendations and medical interventions. Hypertension - well controlled - continue with current medications, continue with no added salt diet. Pt has been encouraged to exercise daily. The pt has been advised to call the office if there are any acute concerns about change in blood pressure readings at home. TRY TO DRINK WATER - AT LEAST 8 - 8 OZ GLASSES OF WATER . UTI - pt with positive urinalysis - culture sent if appropriate. Antibiotic electronically prescribed to pt's pharmacy of choice. Pt to call if symptoms do not improve. . Diabetes Mellitus - controlled - per recent FSBS reports. I have recommended for the patient to have follow up labs prior to the next office visit. The patient has been instructed to continue with current medications as previously directed, continue with regular FSBS monitoring to assure continued control of diabetes. Pt to call for any acute concerns, complaints, or if the blood glucose readings are starting to become less controlled. Hypertension - well controlled - continue with current medications, continue with no added salt diet. Pt has been encouraged to exercise daily. The pt has been advised to call the office if there are any acute concerns about change in blood pressure readings at home. Insomnia - continue with trazodone, monitor symptoms of insomnia. Chronic pain syndrome - refill on chronic pain medication - no change in dose despite pt's request for increase in dose of medication. He has been non-compliant with use of lactulose - he was counseled about need to restart daily use of medication. . Diabetes Mellitus - controlled - per recent FSBS reports. I have recommended for the patient to have follow up labs prior to the next office visit. The patient has been instructed to continue with current medications as previously directed, continue with regular FSBS monitoring to assure continued control of diabetes. Pt to call for any acute concerns, complaints, or if the blood glucose readings are starting to become less controlled. Chronic Pain Syndrome - pt has chronic pain - has been maintained on current medications, has not sought out other medications, only uses PRN pain medications as directed, and understands the consequences of over-medication.. Hepatitis C pt seeing specialist in [place] at [facility]. Umbilical hernia - surgery being planned. . Diabetes Mellitus - controlled - per recent FSBS reports. I have recommended for the patient to have follow up labs prior to the next office visit. The patient has been instructed to continue with current medications as previously directed, continue with regular FSBS monitoring to assure continued control of diabetes. Pt to call for any acute concerns, complaints, or if the blood glucose readings are starting to become less controlled. Chronic Pain Syndrome - pt has chronic pain - has been maintained on current medications, has not sought out other medications, only uses PRN pain medications as directed, and understands the consequences of over-medication. Low back pain- the patient was instructed in appropriate posture, need for weight loss to alleviate abdominal obesity that is worsening the patient's back pain.. The pt is to use prn antiinflammatories to manage acute pain. The patient is to call the office if the pain is worsening or does not improve. Hepatitis C pt sees hepatology at [facility] . . Diabetes Mellitus - controlled - per recent FSBS reports. I have recommended for the patient to have follow up labs prior to the next office visit. The patient has been instructed to continue with current medications as previously directed, continue with regular FSBS monitoring to assure continued control of diabetes. Pt to call for any acute concerns, complaints, or if the blood glucose readings are starting to become less controlled. Tobacco abuse - pt was counseled about stopping smoking - but Toan states that he is not interested in stopping smoking. Abdominal pain - ruq - stable - no chagne in treatment - defer to physician. get Mucinex DM and take this twice daily. . Hypertension - well controlled - continue with current medications, continue with no added salt diet. Pt has been encouraged to exercise daily. The pt has been advised to call the office if there are any acute concerns about change in blood pressure readings at home. DM - unsure of level of control as Toan does not check his FSBS at home. He is getting his shots routinely. Cough - Mucinex DM bid for cough. Chronic pain syndrome - refilled Morphine COPD/CAD - toan uses his oxygen intermittently - when he does use the oxygen he has benefit from the oxygen, however due to his memory loss, he is not as consistent at wearing the oxygen as he should be, but when he does, his family notices an improvement in his function physically and mentally. get Mucinex DM and take this twice daily. . Hypertension - well controlled - continue with current medications, continue with no added salt diet. Pt has been encouraged to exercise daily. The pt has been advised to call the office if there are any acute concerns about change in blood pressure readings at home. DM - unsure of level of control as Toan does not check his FSBS at home. He is getting his shots routinely. Cough - Mucinex DM bid for cough. Chronic pain syndrome - refilled Morphine
--- OUTSIDE RECORDS SUMMARY | 2018-07-14 15:09 | XMS REPORT | CCD ---
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 Name Role Phone PP Unavailable CCM Unavailable Summary Purpose Interface Exchange Insurance Providers Payer name Policy type / Coverage type Covered republican ID Effective Begin Date Effective End Date WPS Medicare Part B Medicare Part B [id number] Unknown [employer] - Medicare Part B [id number] Unknown Family history Sister Diagnosis Age At Onset Cancer Unknown Father Diagnosis Age At Onset Heart Attack Unknown Stroke Unknown Coronary Artery Disease Unknown Social History Social History Element Codes Description Effective Dates Marital status Unknown 12/20/2014 Number of children Unknown 0 12/20/2014 Employment Unknown Retired 12/20/[address]: 26919881 Currently smokes tobacco 12/20/2014 Number of years using tobacco Unknown 40 - 50 12/20/2014 Number of cigarettes/day Unknown < 10 12/20/[address]: 203480 Currently drinks alcohol 12/20/2014 Allergies, Adverse Reactions, [...] ICD-9: 401.1 ICD-10: I10 Active 07/29/2017 Unknown Muscle weakness (generalized) ICD-9: 728.87 ICD-10: M62.81 Active 03/18/2018 Unknown Type 2 diabetes mellitus with hyperglycemia ICD-9: 250.02 ICD-10: E11.65 Active 03/18/2018 Unknown Type 2 diabetes mellitus [...] ICD-9: 305.1 ICD-10: Z72.0 Active 04/21/2016 Unknown Insomnia due to medical condition ICD-9: 327.01 ICD-10: G47.01 Active 01/21/2016 Unknown Cough ICD-9: 786.2 ICD-10: R05 Active [...] hypertension ICD-9: 401.1 ICD-10: I10 07/29/2017 Active Muscle weakness (generalized) ICD-9: 728.87 ICD-10: M62.81 03/18/2018 Active Type 2 diabetes mellitus with hyperglycemia ICD-9: 250.02 ICD-10: E11.65 03/18/2018 Active Type 2 diabetes mellitus without [...] use ICD-9: 305.1 ICD-10: Z72.0 04/21/2016 Active Insomnia due to medical condition ICD-9: 327.01 ICD-10: G47.01 01/21/2016 Active Cough ICD-9: 786.2 ICD-10: R05 12/22/2016 [...] Start Date Stop Date Status Fill Instructions Yovany Espinosa U-100 Insulin 100 unit/mL (3 mL) subcutaneous RxNorm: 5057665 15 Unit(s) SQ QPM 06/14/20182018 Active direction change EMLA 2.5 %-2.5 % topical cream RxNorm: 717826 1 Application TOP TID as needed pain at port site 05/12/2018 No Stop Date Active furosemide 20 mg tablet RxNorm: 985126 TAKE 1 TABLET BY MOUTH DAILY 04/26/2018 11/21/2018 Active Generic For:LASIX 20MG 04/26/2018 8:51:52 AM Xifaxan 550 mg tablet RxNorm: 747151 TAKE 2 TABLETS BY MOUTH TWICE DAILY 04/26/2018 11/21/2018 Active 04/26/2018 8:58:24 AM nicotine 7 mg/24 hr daily transdermal patch RxNorm: 723545 1 Patch TD daily Put on in the morning and take off at night 04/15/2018 04/28/2018 Inactive nicotine 14 mg/24 hr daily transdermal patch RxNorm: 519804 1 Patch TD daily x1 week -Put on in the morning and take off at night, then decrease to 7 mg patches x 1 week 04/15/2018 04/21/2018 Inactive nicotine 21 mg/24 hr daily transdermal patch RxNorm: 279198 1 Patch PO daily 04/15/2018 05/12/2018 Inactive Bydureon 2 mg/0.65 mL subcutaneous pen injector RxNorm: 8807095 2 Milligram(s) SQ QW 03/26/2018 08/22/2018 Active please give needles 31guage needles - deliver to filiberto at her work please ipratropium-albuterol 0.5 mg-3 mg(2.5 mg base)/3 mL nebulization soln RxNorm: 4734705 1 INH daily 03/15/20182017 Inactive Ventolin HFA 90 mcg/actuation aerosol inhaler RxNorm: 584084 INHALE 2 PUFFS BY MOUTH FOUR TIMES DAILY NEEDED 02/24/2018 09/21/2018 Active Basaglar KwikPen U-100 Insulin 100 unit/mL (3 mL) subcutaneous RxNorm: 5997548 10 Unit(s) SQ QPM 01/26/20182017 Inactive Basaglar KwikPen U-100 Insulin 100 unit/mL (3 mL) subcutaneous RxNorm: 8409660 10 Unit(s) SQ QPM 01/26/20182017 Inactive Lantus Solostar U-100 Insulin 100 unit/mL (3 mL) subcutaneous pen RxNorm: 428884 10 Unit(s) SQ daily 01/14/2018 Inactive ipratropium-albuterol 0.5 mg-3 mg(2.5 mg base)/3 mL nebulization soln RxNorm: 6659034 1 INH tid x 3 days, bid x 3 days and q2H prn 01/1403/14/2018 Inactive morphine ER 15 mg tablet,extended release RxNorm: 902402 1 Tablet(s) PO TID as needed 01/06/2018 02/04/2018 Inactive furosemide 20 mg tablet RxNorm: 796705 1 Tablet(s) PO daily 04/25/2018 Inactive Xifaxan 550 mg tablet RxNorm: 381407 2 Tablet(s) PO BID 201704/25/2018 Inactive potassium chloride ER 20 mEq tablet,extended release RxNorm: 440685 1 Tablet(s) BID 08/28/2017 08/22/2018 Active Exelon Patch 4.6 mg/24 hr transdermal RxNorm: 617832 1 TD daily 08/28/2017 08/22/2018 Active trazodone 50 mg tablet RxNorm: 888480 1 Tablet(s) PO QPM as needed insomnia TAKE 1 TABLET BY MOUTH ONCE DAILY NEEDED 08/28/2017 08/22/2018 Active Generic For: DESYREL 50 MG TABLET 11/12/2016 9:00:24 AM Remeron 15 mg tablet RxNorm: 153956 1 Tablet(s) PO QPM TAKE 1 TABLET BY MOUTH EVERY NIGHT AT BEDTIME 08/28/20172018 Active Generic For:REMERON 15MG 11/12 9:00:28 AM Protonix 20 mg tablet,delayed release RxNorm: 967917 1 Tablet(s) PO daily 08/28/2017 08/22/2018 Active Pristiq 50 mg tablet,extended release RxNorm: 491439 1 Tablet(s) PO daily 08/28/2017 08/22/2018 Active 10/13/2016 9:27:26 AM Ventolin HFA 90 mcg/actuation aerosol inhaler RxNorm: 174477 2 INHALE 2 PUFFS BY MOUTH FOUR TIMES DAILY NEEDED 07/29/2017 02/23/2018 Inactive morphine ER 15 mg tablet,extended release RxNorm: 757967 1 Tablet(s) PO TID as needed 07/29/2017 08/27/2017 Inactive Ventolin HFA 90 mcg/actuation aerosol inhaler RxNorm: 690341 INHALE 2 PUFFS BY MOUTH FOUR TIMES DAILY NEEDED 07/10/2017 07/28/2017 Inactive Phenergan-Codeine 6.25 mg-10 mg/5 mL syrup RxNorm: 811384 5 Milliliter(s) PO Q6 as needed cough 07/10/2017 07/23/2017 Inactive albuterol sulfate 90 mcg/actuation breath activated powder inhaler RxNorm: 3994722 2 Puff(s) INH QID as needed dyspnea 06/02/2017 12/27/2017 Inactive morphine ER 15 mg tablet,extended release RxNorm: 914521 1 Tablet(s) PO TID as needed 06/02/2017 07/01/2017 Inactive albuterol sulfate 90 mcg/actuation breath activated powder inhaler RxNorm: 3571853 2 Puff(s) INH QID as needed dyspnea 05/28/2017 06/01/2017 Inactive Bydureon 2 mg/0.65 mL subcutaneous pen injector RxNorm: 4863130 2 Milligram(s) SQ QW 04/02/2017 08/29/2017 Inactive please give needles 31guage needles - deliver to filiberto at her work please lactulose 20 gram/30 mL oral solution RxNorm: 219247 2 Tablespoon(s) PO QID 03/05/2017 09/28/2017 Inactive furosemide 20 mg tablet RxNorm: 405031 1 Tablet(s) PO daily 09/28/2017 Inactive lactulose 10 gram/15 mL oral solution RxNorm: 994942 30 Milliliter(s) PO BID 02/05/2017 No Stop Date Active potassium chloride ER 20 mEq tablet,extended release RxNorm: 926261 1 Tablet(s) BID 02/05/2017 08/27/2017 Inactive Remeron 15 mg tablet RxNorm: 729465 1 Tablet(s) PO QPM TAKE 1 TABLET BY MOUTH EVERY NIGHT AT BEDTIME 02/05/20172017 Inactive Generic For:REMERON 15MG 9:00:28 AM Protonix 20 mg tablet,delayed release RxNorm: 363245 1 Tablet(s) PO daily 02/05/2017 08/27/2017 Inactive trazodone 50 mg tablet RxNorm: 763230 1 Tablet(s) PO QPM as needed insomnia TAKE 1 TABLET BY MOUTH ONCE DAILY NEEDED 02/05/2017 08/27/2017 Inactive Generic For: DESYREL 50 MG TABLET 11/12/2016 9:00:24 AM morphine ER 15 mg tablet,extended release RxNorm: 546213 1 Tablet(s) PO TID as needed 02/05/2017 03/06/2017 Inactive Lantus Solostar 100 unit/mL (3 mL) subcutaneous insulin pen RxNorm: 724849 15 Unit(s) SQ daily 02/05/2017 04/01/2017 Inactive Xifaxan 550 mg tablet RxNorm: 226014 2 Tablet(s) PO BID 201609/02/2017 Inactive Pristiq 50 mg tablet,extended release RxNorm: 190186 1 Tablet(s) PO daily 02/05/2017 08/27/2017 Inactive 10/13/2016 9:27:26 AM Exelon Patch 4.6 mg/24 hr transdermal RxNorm: 940822 1 TD daily 02/05/2017 08/27/2017 Inactive furosemide 20 mg tablet RxNorm: 393636 1 Tablet(s) PO daily 03/04/2017 Inactive Vitamin D3 1,000 unit tablet RxNorm: 419488 2 Tablet(s) PO QHS 01/22/2017 No Stop Date Active furosemide 20 mg tablet RxNorm: 113007 Tablet(s) PO 01/22/2017 02/04/2017 Inactive Xifaxan 550 mg tablet RxNorm: 252599 2 Tablet(s) PO BID 201602/04/2017 Inactive potassium chloride ER 20 mEq tablet,extended release RxNorm: 480460 2 Tablet(s) BID 1 Tablet(s) PO daily 01/22/20172016 Inactive Lasix 40 mg tablet RxNorm: 759989 TAKE ONE TABLET BY MOUTH IN THE MORNING AND ONE-HALF TABLET IN THE AFTERNOON 12/25/2016 01/21/2017 Inactive Ativan 1 mg tablet RxNorm: 655086 1 Tablet(s) PO Q6 as needed anxiety 12/25/2016 01/21/2017 Inactive lactulose 10 gram/15 mL oral solution RxNorm: 267598 15 Milliliter(s) PO BID 12/25/2016 02/04/2017 Inactive lactulose 20 gram/30 mL oral solution RxNorm: 142038 2 Tablespoon(s) PO QID 12/24/2016 12/24/2016 Inactive nicotine 7 mg/24 hr daily transdermal patch RxNorm: 944260 1 Patch TD daily Put on in the morning and take off at night 12/24/2016 01/21/2017 Inactive cefdinir 300 mg capsule RxNorm: 108385 1 Capsule(s) PO BID 12/31/2016 Inactive Zithromax 250 mg tablet RxNorm: 896956 1 Tablet(s) PO daily 12/26/2016 Inactive prednisone 20 mg tablet RxNorm: 726763 2 Tablet(s) PO QAM 12/2212/24/2016 Inactive Ventolin HFA 90 mcg/actuation aerosol inhaler RxNorm: 351777 2 inhale NASAL QID as needed INHALE 2 PUFFS BY MOUTH FOUR TIMES DAILY NEEDED 12/12/2016 07/09/2017 Inactive 04/07/2016 1:44:46 PM spironolactone 50 mg tablet RxNorm: 524882 TAKE 1 TABLET BY MOUTH ONCE DAILY 11/14/2016 11/08/2017 Inactive Generic For:ALDACTONE 50MG 11/12/2016 9:00:19 AM trazodone 50 mg tablet RxNorm: 498900 TAKE 1 TABLET BY MOUTH ONCE DAILY NEEDED 11/12/2016 02/04/2017 Inactive Generic For:DESYREL 50 MG TABLET 11/12/2016 9:00: 24 AM Remeron 15 mg tablet RxNorm: 261665 TAKE 1 TABLET BY MOUTH EVERY NIGHT AT BEDTIME 11/12/2016 01/10/2017 Inactive Generic For:REMERON 15MG 11/12/2016 9:00:28 AM morphine ER 15 mg tablet,extended release RxNorm: 892924 1 Tablet(s) PO TID 10/22/2016 11/20/2016 Inactive Lasix 40 mg tablet RxNorm: 470202 TAKE ONE TABLET BY MOUTH DAILY 10/13/2016 12/24/2016 Inactive Generic For:LASIX 40MG 10/13/2016 9:27:30 AM Pristiq 50 mg tablet,extended release RxNorm: 867466 TAKE 1 TABLET BY MOUTH ONCE DAILY 10/13/2016 02/04/2017 Inactive 10/13/2016 9:27:26 AM nicotine 7 mg/24 hr daily transdermal patch RxNorm: 313533 1 Patch TD daily Put on in the morning and take off at night 10/03/2016 10/23/2016 Inactive nicotine 7 mg/24 hr daily transdermal patch RxNorm: 629410 1 Patch TD daily Put on in the morning and take off at night 09/23/2016 10/02/2016 Inactive nicotine 7 mg/24 hr daily transdermal patch RxNorm: 872434 1 Patch TD daily Put on in the morning and take off at night 09/18/2016 09/22/2016 Inactive glimepiride 4 mg tablet RxNorm: 076229 TAKE TWO TABLETS BY MOUTH DAILY IN THE MORNING 09/15/2016 01/21/2017 Inactive Generic For:*AMARYL 4MG 09/13/2016 9:08:43 AM Remeron 15 mg tablet RxNorm: 126427 1 Tablet(s) PO QHS 201611/11/2016 Inactive deliver to patient's sister FILIBERTO nicotine 7 mg/24 hr daily transdermal patch RxNorm: 039609 1 Patch TD daily Put on in the morning and take off at night 08/22/2016 08/28/2016 Inactive nicotine 14 mg/24 hr daily transdermal patch RxNorm: 373963 1 Patch TD daily x1 week -Put on in the morning and take off at night, then decrease to 7 mg patches x 1 week 08/22/2016 08/28/2016 Inactive nicotine 7 mg/24 hr daily transdermal patch RxNorm: 316815 1 Patch TD daily Put on in the morning and take off at night 08/21/2016 08/21/2016 Inactive nicotine 7 mg/24 hr daily transdermal patch RxNorm: 287396 1 Patch TD daily Put on in the morning and take off at night 08/21/2016 08/20/2016 Inactive nicotine 14 mg/24 hr daily transdermal patch RxNorm: 485345 1 Patch TD daily -Put on in the morning and take off at night, then decrease to 7 mg patches x 1 week 08/21/2016 08/20/2016 Inactive nicotine 14 mg/24 hr daily transdermal patch RxNorm: 084244 1 Patch TD daily x1 week -Put on in the morning and take off at night, then decrease to 7 mg patches x 1 week 08/21/2016 08/21/2016 Inactive potassium chloride ER 20 mEq tablet,extended release RxNorm: 648049 Tablet(s) 1 Tablet(s) PO daily 08/14/2016 01/21/2017 Inactive Remeron 15 mg tablet RxNorm: 080789 1 Tablet(s) PO QHS 201509/14/2016 Inactive deliver to patient's sister FILIBERTO omeprazole 20 mg capsule,delayed release RxNorm: 493337 TAKE 1 CAPSULE BY MOUTH TWICE DAILY 07/15/2016 01/21/2017 Inactive Generic For:PRILOSEC 20MG 07/15/2016 8: 59:16 AM trazodone 50 mg tablet RxNorm: 141532 Tablet(s) Tablet(s) TAKE ONE TABLET BY MOUTH DAILY NEEDED 07/15/20162016 Inactive Pristiq 50 mg tablet,extended release RxNorm: 461173 TAKE 1 TABLET BY MOUTH ONCE DAILY 06/16/2016 10/12/2016 Inactive 06/16/2016 9:02:33 AM Lasix 40 mg tablet RxNorm: 926212 TAKE ONE TABLET BY MOUTH DAILY 06/16/2016 10/12/2016 Inactive Generic For:LASIX 40MG 06/16/2016 9:02:29 AM Ventolin HFA 90 mcg/actuation aerosol inhaler RxNorm: 908561 2 inhale NASAL QID as needed INHALE 2 PUFFS BY MOUTH FOUR TIMES DAILY NEEDED 04/22/2016 11/17/2016 Inactive 04/07/2016 1:44:46 PM mupirocin 2 % topical ointment RxNorm: 465420 1 Application TOP BID 04/22/2016 05/01/2016 Inactive apply in nose twice daily Ventolin HFA 90 mcg/actuation aerosol inhaler RxNorm: 699010 INHALE 2 PUFFS BY MOUTH FOUR TIMES DAILY NEEDED 04/07/2016 04/21/2016 Inactive 04/07/2016 1:44:46 PM trazodone 50 mg tablet RxNorm: 107912 Tablet(s) Tablet(s) TAKE ONE TABLET BY MOUTH DAILY NEEDED 03/18/20162015 Inactive potassium chloride ER 20 mEq tablet,extended release RxNorm: 508057 1 Tablet(s) PO daily 03/17/2016 08/13/2016 Inactive Pristiq 50 mg tablet,extended release RxNorm: 440559 1 Tablet(s) PO daily 02/18/2016 06/15/2016 Inactive Lasix 40 mg tablet RxNorm: TAKE ONE TABLET BY MOUTH DAILY 02/18/2016 06/15/2016 Inactive Generic For:LASIX 40MG 02/16/2016 9:03:51 AM glimepiride 4 mg tablet RxNorm: 607816 TAKE TWO TABLETS BY MOUTH DAILY IN THE MORNING 02/18/2016 09/14/2016 Inactive Generic For:*AMARYL 4MG 02/16/2016 9:03:44 AM Ventolin HFA 90 mcg/actuation aerosol inhaler RxNorm: 886241 INHALE 2 PUFFS BY MOUTH FOUR TIMES DAILY NEEDED 02/18/2016 04/06/2016 Inactive 02/16/2016 9:04:47 AM trazodone 50 mg tablet RxNorm: 130425 Tablet(s) TAKE ONE TABLET BY MOUTH DAILY NEEDED 01/17/2016 03/16/2016 Inactive Generic For:DESYREL 50 MG TABLET 08/17/2015 9:45:00 AM ciprofloxacin 500 mg tablet RxNorm: 767957 1 Tablet(s) PO BID 01/04/2016 01/10/2016 Inactive Ventolin HFA 90 mcg/actuation aerosol inhaler RxNorm: 731624 INHALE 2 PUFFS BY MOUTH FOUR TIMES DAILY NEEDED 01/02/2016 02/17/2016 Inactive 01/02/2016 1:45:42 PM omeprazole 20 mg capsule,delayed release RxNorm: 399496 TAKE 1 CAPSULE BY MOUTH TWICE DAILY 12/18/2015 07/14/2016 Inactive Generic For:PRILOSEC 20MG 12/18/2015 10 :05:45 AM Ventolin HFA 90 mcg/actuation aerosol inhaler RxNorm: 495977 2 INH QID as needed 11/19/2015 01/01/2016 Inactive dc PROAIR trazodone 100 mg tablet RxNorm: 845185 1 Tablet(s) PO QHS 11/1512/15/2015 Inactive spironolactone 50 mg tablet RxNorm: 195135 TAKE 1 TABLET BY MOUTH ONCE DAILY 10/24/2015 10/17/2016 Inactive Generic For:ALDACTONE 50MG 10/23/2015 11:26:43 AM mupirocin 2 % topical ointment RxNorm: 078429 1 Application TOP QID 10/23/2015 10/29/2015 Inactive Lasix 40 mg tablet RxNorm: 523925 TAKE ONE TABLET BY MOUTH DAILY 10/22/2015 02/17/2016 Inactive Generic For:LASIX 40MG 10/22/2015 4:29:14 PM10/19/2015 9:43:00 AM Pristiq 50 mg tablet,extended release RxNorm: 539993 1 Tablet(s) PO daily 10/19/2015 02/15/2016 Inactive potassium chloride ER 20 mEq tablet,extended release RxNorm: 605210 1 Tablet(s) PO daily 10/19/2015 03/16/2016 Inactive trazodone 50 mg tablet RxNorm: 937565 Tablet(s) TAKE ONE TABLET BY MOUTH DAILY NEEDED 10/19/2015 12/17/2015 Inactive Generic For:DESYREL 50 MG TABLET 08/17/2015 9:45:00 AM Ventolin HFA 90 mcg/actuation aerosol inhaler RxNorm: 741686 2 INH QID as needed 10/08/2015 11/18/2015 Inactive dc PROAIR prednisone 20 mg tablet RxNorm: 572551 3 Tablet(s) PO QAM 09/0509/07/2015 Inactive trazodone 50 mg tablet RxNorm: 031464 TAKE ONE TABLET BY MOUTH DAILY NEEDED 08/17/2015 10/15/2015 Inactive Generic For:DESYREL 50 MG TABLET 08/17/2015 9:45: 00 AM morphine ER 15 mg tablet,extended release RxNorm: 075604 1 Tablet(s) PO TID 08/07/2015 09/05/2015 Inactive glimepiride 4 mg tablet RxNorm: 199436 TAKE TWO TABLETS BY MOUTH DAILY IN THE MORNING 07/23/2015 02/17/2016 Inactive Generic For:*AMARYL 4MG 07/23/2015 10:52: 06 AM potassium chloride ER 20 mEq tablet,extended release RxNorm: 488523 1 Tablet(s) PO daily 06/29/2015 06/28/2015 Inactive potassium chloride ER 20 mEq tablet,extended release RxNorm: 604715 1 Tablet(s) PO daily 06/29/2015 10/18/2015 Inactive Lasix 40 mg tablet RxNorm: 082900 1 Tablet(s) PO daily 201410/21/2015 Inactive trazodone 50 mg tablet RxNorm: 480884 1 Tablet(s) PO daily as needed 06/22/2015 06/21/2015 Inactive Pristiq 50 mg tablet,extended release RxNorm: 719970 1 Tablet(s) PO daily 06/22/2015 10/18/2015 Inactive trazodone 50 mg tablet RxNorm: 784634 1 Tablet(s) PO daily as needed 06/22/2015 08/16/2015 Inactive ProAir HFA 90 mcg/actuation aerosol inhaler RxNorm: 3812701 2 Puff(s) INH QID as needed dyspnea 06/12/2015 10/07/2015 Inactive omeprazole 20 mg capsule,delayed release RxNorm: 793573 1 Capsule(s) PO BID 05/31/2015 12/17/2015 Inactive DC protonix pantoprazole 40 mg tablet,delayed release RxNorm: 275050 1 Tablet(s) PO daily 05/25/2015 05/30/2015 Inactive Pristiq 50 mg tablet,extended release RxNorm: 517155 1 Tablet(s) PO daily 03/23/2015 06/20/2015 Inactive Lasix 40 mg tablet RxNorm: 027082 1 Tablet(s) PO daily 201405/14/2015 Inactive morphine ER 15 mg tablet,extended release RxNorm: 571594 1 Tablet(s) PO TID 03/06/2015 04/04/2015 Inactive Klor-Con M20 mEq tablet,extended release RxNorm: 6752871 1 Tablet(s) PO daily 02/22/2015 05/14/2015 Inactive ProAir HFA 90 mcg/actuation aerosol inhaler RxNorm: 2116626 2 Puff(s) INH QID as needed dyspnea 02/15/2015 06/11/2015 Inactive albuterol sulfate 90 mcg/actuation breath activated powder inhaler RxNorm: 4499617 2 Puff(s) INH QID as needed dyspnea 02/15/2015 09/10/2015 Inactive ProAir HFA 90 mcg/actuation aerosol inhaler RxNorm: 6961679 2 Puff(s) INH QID as needed dyspnea 02/15/2015 02/14/2015 Inactive morphine ER 15 mg tablet,extended release RxNorm: 540874 1 Tablet(s) PO TID 01/25/2015 02/23/2015 Inactive morphine 15 mg capsule RxNorm: 684258 1 Capsule(s) PO TID 01/2301/24/2015 Inactive morphine 15 mg capsule RxNorm: 657759 1 Capsule(s) PO TID 01/0901/22/2015 Inactive omeprazole 40 mg capsule,delayed release RxNorm: 720193 1 Capsule(s) PO daily 12/28/2014 12/27/2014 Inactive DC protonix omeprazole 40 mg capsule,delayed release RxNorm: 866707 1 Capsule(s) PO daily 12/28/2014 05/30/2015 Inactive DC protonix glimepiride 4 mg tablet RxNorm: 546654 2 Tablet(s) PO QAM 12/2707/22/2015 Inactive nicotine 21 mg/24 hr daily transdermal patch RxNorm: 382258 1 Patch PO daily 12/26/2014 01/22/2015 Inactive morphine 15 mg capsule RxNorm: 483590 1 Capsule(s) PO TID 12/2001/08/2015 Inactive Pristiq 50 mg tablet,extended release RxNorm: 294542 1 Tablet(s) PO daily 12/20/2014 01/18/2015 Inactive pantoprazole 40 mg tablet,delayed release RxNorm: 033152 1 Tablet(s) PO daily 12/20/2014 12/27/2014 Inactive magnesium oxide 400 mg tablet RxNorm: 226785 1 Tablet(s) PO daily No Start Date Active melatonin 3 mg tablet RxNorm: 435083 1 Tablet(s) PO daily No Start Date Active Novolin R 100 unit/mL injection solution RxNorm: 705385 ssi: 4u 150-200, 1e965-657 , 8u 251-300, 10u 301-350, 12u 351 Unit(s) Inj No Start Date Active 12u 351-400 over 351 give [address] ipratropium-albuterol 0.5 mg-3 mg(2.5 mg base)/3 mL nebulization soln RxNorm: 9601799 1 INH q2H prn No Start Date 01/2018 Inactive EMLA 2.5 %-2.5 % topical cream RxNorm: 461757 1 Application TOP TID as needed pain at port site No Start Date 2017 Inactive glimepiride 4 mg tablet RxNorm: 177191 2 Tablet(s) PO QAM No Start Date 12/26/2014 Inactive Exelon Patch 4.6 mg/24 hr transdermal RxNorm: 819049 1 TD daily No Start Date 02/04/2017 Inactive spironolactone 50 mg tablet RxNorm: 530382 1 Tablet(s) PO daily No Start Date 05/14/2015 Inactive Lasix 40 mg tablet RxNorm: 219925 1 Tablet(s) PO daily No Start Date 03/22/2015 Inactive Protonix 20 mg tablet,delayed release RxNorm: 340269 1 Tablet(s) PO daily No Start Date 02/04/2017 Inactive Ventolin HFA 90 mcg/actuation aerosol inhaler RxNorm: 402493 2 INH QID as needed No Start Date 10/07/2015 Inactive dc PROAIR lactulose 20 gram/30 mL oral solution RxNorm: 001938 2 Tablespoon(s) PO QID No Start Date 12/23/2016 Inactive Xifaxan 550 mg tablet RxNorm: 518079 2 Tablet(s) PO daily No Start Date 01/21/2017 Inactive Klor-Con M20 mEq tablet,extended release RxNorm: 849521 1 Tablet(s) PO daily No Start Date 02/21/2015 Inactive Vitamin D3 1,000 unit tablet RxNorm: 750349 1 Tablet(s) PO TID No Start Date 01/21/2017 Inactive Trazadone Oral RxNorm : oral No Start Date 03/18/2016 Inactive Levemir 100 unit/mL subcutaneous solution RxNorm: 133114 10 Unit(s) SQ daily No Start Date [...] 07/10/2008 completed Assessments Condition Codes Effective Dates Muscle weakness (generalized) ICD-10: M62.81 ICD-9: 728.87 03/18/2018 Type 2 diabetes mellitus with hyperglycemia ICD-10: E11.65 ICD-9: 250.02 03/18/2018 Chronic pain syndrome ICD-10: G89.4 ICD-9: 338.4 03/18/2018 Unsteadiness on feet ICD-10: R26.81 ICD-9: 781.2 03/18/2018 Essential (primary) hypertension ICD-10: I10 ICD-9: 401.1 03/18/2018 Chronic obstructive pulmonary disease, unspecified ICD-10: [...] Tobacco use ICD-10: Z72.0 ICD-9: 305.1 04/02/2017 Insomnia due to medical condition ICD-10: G47.01 ICD-9: 327.01 02/05/2017 Cough ICD-10: R05 ICD-9: 786.2 12/22/2016 Shortness [...] For Visit Effective Dates Notes diabetes mellitus 03/18/2018 Annual Medicare Wellness Exam [...] Metabolic Ord15 CALCIUM 8.2 mg/dL 06/02/2018 %Hba1C Hry109 % HbA1c 95689-0 8.2 % 01/06/2018 %Hba1C Ebw546 Gluc Ave 189 mg/dL 01/06/2018 Cbc With [...] 27.8 pg 01/06/2018 Cbc With Differential Ord2 [place]% 11.2 % 01/06/2018 Cbc With Differential Ord2 [...] 0.73 K/ul 01/06/2018 Cbc With Differential Ord2 [place] ABS# 0.4 K/ul 01/06/2018 Cbc With Differential Ord2 Eos ABS# 0.1 K/ul 01/06/2018 Cbc With Differential Ord2 Baso ABS# 0.0 K/ul 01/06/2018 Pt Vpy1209 PT 16.1 seconds 01/06/2018 Pt [id number] INR 1.3 01/06/2018 Pt Csc2424 Low Intensity - 1.5-2.0 01/06/2018 Pt Bsf0430 Mod intensity - 2.0-3.0 01/06/2018 Pt Gcv4895 Hi intensity - 3.0-4.0 01/06/2018 Carbohydrate Antigen 19-9 894793 CA 19-9 130 U/mL 12/18/2017 Afp Serum Tumor Marker [id number] ALPHA- FETOPROTEIN TM 2.1 ng/mL 12/01/2017 Comp Metabolic Gjr571 NA 134 mEq/L 11/30/2017 Comp Metabolic Mmm740 K 3.7 mEq/L 11/30/2017 Comp Metabolic Zou535 CL 102 mEq/L 11/30/2017 Comp Metabolic Kgv704 CO2 26.0 mEq/L 11/30/2017 Comp Metabolic Ama682 ANION GAP 10 11/30/2017 Comp Metabolic Zbk740 GLUCOSE 295 mg/dL 11/30/2017 Comp Metabolic Ebg609 Creat 0.5 mg/dL 11/30/2017 Comp Metabolic Qgf154 eGFR 178 ml/min/1.73m2 11/30/2017 Comp Metabolic Fpy760 BUN 11 mg/dL 11/30/2017 Comp Metabolic Jdv249 B/C Ratio 22.0 Ratio 11/30/2017 Comp Metabolic Mgs492 CALCIUM 7.9 mg/dL 11/30/2017 Comp Metabolic Tlx590 ALK PHOS 167 U/L 11/30/2017 Comp Metabolic Gdm583 AST(SGOT) 52 U/L 11/30/2017 Comp Metabolic Isw191 ALT(SGPT) 31 U/L 11/30/2017 Comp Metabolic Vmy025 BILI T 1.5 mg/dL 11/30/2017 Comp Metabolic Bvb802 ALBUMIN 2.8 g/dL 11/30/2017 Comp Metabolic Cmt840 TPRO 6.2 g/dL 11/30/2017 Comp Metabolic Rrd880 GLOB 3.4 g/dL 11/30/2017 Comp Metabolic Yre630 A/G Ratio 0.8 Ratio 11/30/2017 Comp Metabolic Czf726 Osmo 279 mOsmo 11/30/2017 Pt Zqw9874 PT 16.5 seconds 11/30/2017 Pt Myp7413 INR 1.4 11/30/2017 Pt Qqs9884 Low Intensity - 1.5-2.0 11/30/2017 Pt Nrf9880 Mod intensity - 2.0-3.0 11/30/2017 Pt Xdf6700 Hi intensity - 3.0-4.0 11/30/2017 Cbc With [...] 27.8 pg 11/30/2017 Cbc With Differential Ord2 [place]% 11.2 % 11/30/2017 Cbc With Differential Ord2 [...] 0.77 K/ul 11/30/2017 Cbc With Differential Ord2 [place] ABS# 0.4 K/ul 11/30/2017 Cbc With Differential Ord2 Eos ABS# 0.2 K/ul 11/30/2017 Cbc With Differential Ord2 Baso ABS# 0.0 K/ul 11/30/2017 Afp Serum Tumor Marker [id number] ALPHA- FETOPROTEIN TM 1.7 ng/mL 09/23/2017 Bili [...] 27.4 pg 09/22/2017 Cbc With Differential Ord2 [place]% 10.0 % 09/22/2017 Cbc With Differential Ord2 [...] 0.99 K/ul 09/22/2017 Cbc With Differential Ord2 [place] ABS# 0.5 K/ul 09/22/2017 Cbc With Differential Ord2 [place] ABS# 0.1 K/ul 09/22/2017 Cbc With Differential Ord2 Baso ABS# 0.0 K/ul 09/22/2017 Pt [id number] PT 15.9 seconds 09/22/2017 Pt [id number] INR 1.3 09/22/2017 Pt Fay4946 Low Intensity - 1.5-2.0 09/22/2017 Pt Eii4904 Mod intensity - 2.0-3.0 09/22/2017 Pt Iey1985 Hi intensity - 3.0-4.0 09/22/2017 Comp Metabolic Nvf857 NA 138 mEq/L 09/22/2017 Comp Metabolic Jew244 K 3.6 mEq/L 09/22/2017 Comp Metabolic Uxo116 CL 104 mEq/L 09/22/2017 Comp Metabolic Pti320 CO2 28.0 mEq/L 09/22/2017 Comp Metabolic Jju899 ANION GAP 10 09/22/2017 Comp Metabolic Hxp918 GLUCOSE 295 mg/dL 09/22/2017 Comp Metabolic Gwh809 Creat 0.5 mg/dL 09/22/2017 Comp Metabolic Jju909 eGFR 174 ml/min/1.73m2 09/22/2017 Comp Metabolic Xtw786 BUN 10 mg/dL 09/22/2017 Comp Metabolic Bhq060 B/C Ratio 19.6 Ratio 09/22/2017 Comp Metabolic Xce924 CALCIUM 8.9 mg/dL 09/22/2017 Comp Metabolic Qmu726 ALK PHOS 161 U/L 09/22/2017 Comp Metabolic Uhr013 AST(SGOT) 41 U/L 09/22/2017 Comp Metabolic Gwy476 ALT(SGPT) 27 U/L 09/22/2017 Comp Metabolic Iui584 BILI T 1.5 mg/dL 09/22/2017 Comp Metabolic Exf187 ALBUMIN 3.2 g/dL 09/22/2017 Comp Metabolic Ney896 TPRO 6.4 g/dL 09/22/2017 Comp Metabolic Zuy348 GLOB 3.2 g/dL 09/22/2017 Comp Metabolic Nsa342 A/G Ratio 1.0 Ratio 09/22/2017 Comp Metabolic Aey318 Osmo 286 mOsmo 09/22/2017 %Hba1C Eyj252 % HbA1c 45337-6 9.0 % 07/29/2017 %Hba1C Phw816 Gluc Ave 212 mg/dL 07/29/2017 Comp Metabolic Kgt233 NA 136 mEq/L 07/29/2017 Comp Metabolic Xak924 K 3.7 mEq/L 07/29/2017 Comp Metabolic Syh545 CL 102 mEq/L 07/29/2017 Comp Metabolic Mrn276 CO2 27.0 mEq/L 07/29/2017 Comp Metabolic Qtf913 ANION GAP 11 07/29/2017 Comp Metabolic Pdf712 GLUCOSE 386 mg/dL 07/29/2017 Comp Metabolic Nxx091 Creat 0.6 mg/dL 07/29/2017 Comp Metabolic Nji329 eGFR 142 ml/min/1.73m2 07/29/2017 Comp Metabolic Hsc867 BUN 10 mg/dL 07/29/2017 Comp Metabolic Sfu187 B/C Ratio 16.4 Ratio 07/29/2017 Comp Metabolic Xya926 CALCIUM 8.1 mg/dL 07/29/2017 Comp Metabolic Ovw845 ALK PHOS 147 U/L 07/29/2017 Comp Metabolic Hlx283 AST(SGOT) 41 U/L 07/29/2017 Comp Metabolic Qug190 ALT(SGPT) 24 U/L 07/29/2017 Comp Metabolic Ail102 BILI T 1.7 mg/dL 07/29/2017 Comp Metabolic Lja076 ALBUMIN 2.8 g/dL 07/29/2017 Comp Metabolic Nkz494 TPRO 5.7 g/dL 07/29/2017 Comp Metabolic Lna024 GLOB 2.9 g/dL 07/29/2017 Comp Metabolic Ohq851 A/G Ratio 0.9 Ratio 07/29/2017 Comp Metabolic Ftl993 Osmo 287 mOsmo 07/29/2017 Comp Metabolic Qti779 NA 138 mEq/L 12/09/2016 Comp Metabolic Gaj438 K 3.7 mEq/L 12/09/2016 Comp Metabolic Ddy598 CL 105 mEq/L 12/09/2016 Comp Metabolic Zxj719 CO2 28.0 mEq/L 12/09/2016 Comp Metabolic Ush253 ANION GAP 9 12/09/2016 Comp Metabolic Aby161 GLUCOSE 220 mg/dL 12/09/2016 Comp Metabolic Zsv774 Creat 0.5 mg/dL 12/09/2016 Comp Metabolic Zvh144 eGFR 164 ml/min/1.73m2 12/09/2016 Comp Metabolic Fjj680 BUN 12 mg/dL 12/09/2016 Comp Metabolic Wcc621 B/C Ratio 22.2 Ratio 12/09/2016 Comp Metabolic Lbn710 CALCIUM 7.9 mg/dL 12/09/2016 Comp Metabolic Trp159 ALK PHOS 85 U/L 12/09/2016 Comp Metabolic Drz478 AST(SGOT) 26 U/L 12/09/2016 Comp Metabolic Mki169 ALT(SGPT) 12 U/L 12/09/2016 Comp Metabolic Dpf490 BILI T 1.6 mg/dL 12/09/2016 Comp Metabolic Sph849 ALBUMIN 2.9 g/dL 12/09/2016 Comp Metabolic Gxl788 TPRO 5.8 g/dL 12/09/2016 Comp Metabolic Xkm417 GLOB 2.9 g/dL 12/09/2016 Comp Metabolic Use724 A/G Ratio 1.0 Ratio 12/09/2016 Comp Metabolic Zyw656 Osmo 282 mOsmo 12/09/2016 Metabolic Ord15 NA [...] Ord15 CALCIUM 8.3 mg/dL 10/20/2016 Comp Metabolic Gdm721 NA 137 mEq/L 07/31/2016 Comp Metabolic Plf967 K 3.7 mEq/L 07/31/2016 Comp Metabolic Hfu269 CL 105 mEq/L 07/31/2016 Comp Metabolic Vof525 CO2 24.0 mEq/L 07/31/2016 Comp Metabolic Egj316 ANION GAP 12 07/31/2016 Comp Metabolic Pbn862 GLUCOSE 205 mg/dL 07/31/2016 Comp Metabolic Fau136 Creat 0.7 mg/dL 07/31/2016 Comp Metabolic Yhd398 eGFR 132 ml/min/1.73m2 07/31/2016 Comp Metabolic Usu724 BUN 12 mg/dL 07/31/2016 Comp Metabolic Ubc852 B/C Ratio 18.5 Ratio 07/31/2016 Comp Metabolic Ufx624 CALCIUM 8.4 mg/dL 07/31/2016 Comp Metabolic Jgv080 ALK PHOS 90 U/L 07/31/2016 Comp Metabolic Fkd986 AST(SGOT) 34 U/L 07/31/2016 Comp Metabolic Ocv804 ALT(SGPT) 22 U/L 07/31/2016 Comp Metabolic Klk247 BILI T 2.2 mg/dL 07/31/2016 Comp Metabolic Nmh262 ALBUMIN 3.3 g/dL 07/31/2016 Comp Metabolic Jst701 TPRO 6.8 g/dL 07/31/2016 Comp Metabolic Lbu564 GLOB 3.5 g/dL 07/31/2016 Comp Metabolic Kea965 A/G Ratio 0.9 Ratio 07/31/2016 Comp Metabolic Kkp687 Osmo 279 mOsmo 07/31/2016 Cbc With Differential [...] 31.4 pg 07/31/2016 Cbc With Differential Ord2 [place]% 10.5 % 07/31/2016 Cbc With Differential Ord2 [...] 0.91 K/ul 07/31/2016 Cbc With Differential Ord2 [place] ABS# 0.6 K/ul 07/31/2016 Cbc With Differential Ord2 Eos ABS# 0.2 K/ul 07/31/2016 Cbc With Differential Ord2 Baso ABS# 0.0 K/ul 07/31/2016 %Hba1C Hir140 % HbA1c 31514-5 5.6 % 07/31/2016 %Hba1C Wdy780 Gluc Ave 114 mg/dL 07/31/2016 Lipid Ord30 [...] 32.4 pg 05/21/2016 Cbc With Differential Ord2 [place]% 10.6 % 05/21/2016 Cbc With Differential Ord2 [...] 0.78 K/ul 05/21/2016 Cbc With Differential Ord2 [place] ABS# 0.5 K/ul 05/21/2016 Cbc With Differential Ord2 Eos ABS# 0.1 K/ul 05/21/2016 Cbc With Differential Ord2 Baso ABS# 0.0 K/ul 05/21/2016 Pt Mep6236 PT 16.4 seconds 05/21/2016 Pt Dtv3629 INR 1.4 05/21/2016 Pt Jfz9463 Low Intensity - 1.5-2.0 05/21/2016 Pt Xql2493 Mod intensity - 2.0-3.0 05/21/2016 Pt Hcl2576 Hi intensity - 3.0-4.0 05/21/2016 Comp Metabolic Bxf803 NA 136 mEq/L 05/21/2016 Comp Metabolic Dsp910 K 3.4 mEq/L 05/21/2016 Comp Metabolic Xpv364 CL 102 mEq/L 05/21/2016 Comp Metabolic Itu549 CO2 28.0 mEq/L 05/21/2016 Comp Metabolic Shj163 ANION GAP 9 05/21/2016 Comp Metabolic Ibp286 GLUCOSE 164 mg/dL 05/21/2016 Comp Metabolic Gyp787 Creat 0.5 mg/dL 05/21/2016 Comp Metabolic Ylk517 eGFR 175 ml/min/1.73m2 05/21/2016 Comp Metabolic Lyi845 BUN 8 mg/dL 05/21/2016 Comp Metabolic Bch560 B/C Ratio 15.7 Ratio 05/21/2016 Comp Metabolic Tfi460 CALCIUM 8.1 mg/dL 05/21/2016 Comp Metabolic Xhg923 ALK PHOS 77 U/L 05/21/2016 Comp Metabolic Fqf156 AST(SGOT) 62 U/L 05/21/2016 Comp Metabolic Lwc875 ALT(SGPT) 83 U/L 05/21/2016 Comp Metabolic Ldy564 BILI T 2.3 mg/dL 05/21/2016 Comp Metabolic Vss866 ALBUMIN 2.9 g/dL 05/21/2016 Comp Metabolic Zvv636 TPRO 5.9 g/dL 05/21/2016 Comp Metabolic Rmf290 GLOB 3.0 g/dL 05/21/2016 Comp Metabolic Rhs624 A/G Ratio 1.0 Ratio 05/21/2016 Comp Metabolic Nsi463 Osmo 274 mOsmo 05/21/2016 Afp Serum Tumor Marker [id number] ALPHA- FETOPROTEIN TM 1.8 ng/mL 04/29/2016 Cbc [...] 92.2 fl 04/28/2016 Cbc With Differential Ord2 [place]% 13.3 % 04/28/2016 Cbc With Differential Ord2 MCH 32.8 pg 04/28/2016 Cbc With Differential Ord2 Eos% 4.3 % 04/28/2016 Cbc With Differential Ord2 MCHC 35.5 pg 04/28/2016 Cbc With Differential Ord2 Baso% 0.3 % 04/28/2016 Cbc With Differential Ord2 PLT 45 K/ul 04/28/2016 Cbc With Differential Ord2 Neut ABS# 2.33 K/ul 04/28/2016 Cbc With Differential Ord2 RDW 15.6 % 04/28/2016 Cbc With Differential Ord2 Lymph ABS# 0.51 K/ul 04/28/2016 Cbc With Differential Ord2 [place] ABS# 0.5 K/ul 04/28/2016 Cbc With Differential Ord2 Eos ABS# 0.2 K/ul 04/28/2016 Cbc With Differential Ord2 Baso ABS# 0.0 K/ul 04/28/2016 Pt Lhl6127 PT 15.6 seconds 04/28/2016 Pt Rhu6419 INR 1.3 04/28/2016 Pt Btx2583 Low Intensity - 1.5-2.0 04/28/2016 Pt Tpk0901 Mod intensity - 2.0-3.0 04/28/2016 Pt Txw7890 Hi intensity - 3.0-4.0 04/28/2016 Comp Metabolic Isp655 NA 136 mEq/L 04/28/2016 Comp Metabolic Eej676 K 3.8 mEq/L 04/28/2016 Comp Metabolic Aac391 CL 102 mEq/L 04/28/2016 Comp Metabolic Mbh086 CO2 29.0 mEq/L 04/28/2016 Comp Metabolic Hob146 ANION GAP 9 04/28/2016 Comp Metabolic Cjm176 GLUCOSE 153 mg/dL 04/28/2016 Comp Metabolic Jxx936 Creat 0.6 mg/dL 04/28/2016 Comp Metabolic Quc105 eGFR 143 ml/min/1.73m2 04/28/2016 Comp Metabolic Jdj008 BUN 7 mg/dL 04/28/2016 Comp Metabolic Dsr472 B/C Ratio 11.5 Ratio 04/28/2016 Comp Metabolic Xpb413 CALCIUM 8.4 mg/dL 04/28/2016 Comp Metabolic Osz591 ALK PHOS 119 U/L 04/28/2016 Comp Metabolic Oel899 AST(SGOT) 42 U/L 04/28/2016 Comp Metabolic Xbe328 ALT(SGPT) 24 U/L 04/28/2016 Comp Metabolic Qvt115 BILI T 1.9 mg/dL 04/28/2016 Comp Metabolic Xjz151 ALBUMIN 3.1 g/dL 04/28/2016 Comp Metabolic Xuc865 TPRO 6.4 g/dL 04/28/2016 Comp Metabolic Joh008 GLOB 3.4 g/dL 04/28/2016 Comp Metabolic Brz368 A/G Ratio 0.9 Ratio 04/28/2016 Comp Metabolic Ozu930 Osmo 273 mOsmo 04/28/2016 Cbc With Differential [...] 32.2 pg 01/22/2016 Cbc With Differential Ord2 [place]% 19.3 % 01/22/2016 Cbc With Differential Ord2 [...] 0.63 K/ul 01/22/2016 Cbc With Differential Ord2 [place] ABS# 0.9 K/ul 01/22/2016 Cbc With Differential Ord2 Eos ABS# 0.1 K/ul 01/22/2016 Cbc With Differential Ord2 Baso ABS# 0.0 K/ul 01/22/2016 Comp Metabolic Cwp900 NA 134 mEq/L 01/22/2016 Comp Metabolic Fen422 K 3.8 mEq/L 01/22/2016 Comp Metabolic Kjq844 CL 102 mEq/L 01/22/2016 Comp Metabolic Rio403 CO2 28.0 mEq/L 01/22/2016 Comp Metabolic Rkk515 ANION GAP 8 01/22/2016 Comp Metabolic Drn335 GLUCOSE 179 mg/dL 01/22/2016 Comp Metabolic Cwf330 Creat 0.5 mg/dL 01/22/2016 Comp Metabolic Tdq647 eGFR 164 ml/min/1.73m2 01/22/2016 Comp Metabolic Cju882 BUN 11 mg/dL 01/22/2016 Comp Metabolic Opv523 B/C Ratio 20.4 Ratio 01/22/2016 Comp Metabolic Wpd255 CALCIUM 8.2 mg/dL 01/22/2016 Comp Metabolic Tug611 ALK PHOS 171 U/L 01/22/2016 Comp Metabolic Eac534 AST(SGOT) 25 U/L 01/22/2016 Comp Metabolic Sfw300 ALT(SGPT) 13 U/L 01/22/2016 Comp Metabolic Tun720 BILI T 2.4 mg/dL 01/22/2016 Comp Metabolic Aee648 ALBUMIN 3.0 g/dL 01/22/2016 Comp Metabolic Mhb174 TPRO 6.3 g/dL 01/22/2016 Comp Metabolic Ikv623 GLOB 3.3 g/dL 01/22/2016 Comp Metabolic Wnk223 A/G Ratio 0.9 Ratio 01/22/2016 Comp Metabolic Zre429 Osmo 272 mOsmo 01/22/2016 Afp Serum Tumor Marker [id number] ALPHA- FETOPROTEIN TM 2.2 ng/mL 12/25/2015 Pt Jrp3190 PT 16.4 seconds 12/20/2015 Pt Qpy5072 INR 1.4 12/20/2015 Pt Hch7134 Low Intensity - 1.5-2.0 12/20/2015 Pt Itv5050 Mod intensity - 2.0-3.0 12/20/2015 Pt Chl7172 Hi intensity - 3.0-4.0 12/20/2015 Cbc With [...] 91.2 fl 12/20/2015 Cbc With Differential Ord2 [place]% 8.1 % 12/20/2015 Cbc With Differential Ord2 [...] 0.63 K/ul 12/20/2015 Cbc With Differential Ord2 [place] ABS# 0.4 K/ul 12/20/2015 Cbc With Differential Ord2 Eos ABS# 0.1 K/ul 12/20/2015 Cbc With Differential Ord2 Baso ABS# 0.0 K/ul 12/20/2015 Cbc With Differential Ord2 New Analyzer Notice Please note new ref ranges starting 08-22-2015 due to implemntation of new five part differential hematolgy analyzer. 12/20/2015 Comp Metabolic Guv234 NA 138 mEq/L 12/20/2015 Comp Metabolic Mbo912 K 3.7 mEq/L 12/20/2015 Comp Metabolic Etz470 CL 100 mEq/L 12/20/2015 Comp Metabolic Gsw676 CO2 31.0 mEq/L 12/20/2015 Comp Metabolic Owp464 ANION GAP 11 12/20/2015 Comp Metabolic Lia688 GLUCOSE 150 mg/dL 12/20/2015 Comp Metabolic Mia616 Creat 0.4 mg/dL 12/20/2015 Comp Metabolic Kjg877 eGFR 239 ml/min/1.73m2 12/20/2015 Comp Metabolic Mwm332 BUN 9 mg/dL 12/20/2015 Comp Metabolic Twm866 B/C Ratio 23.1 Ratio 12/20/2015 Comp Metabolic Nqv153 CALCIUM 7.9 mg/dL 12/20/2015 Comp Metabolic Cfr811 ALK PHOS 82 U/L 12/20/2015 Comp Metabolic Cvv107 AST(SGOT) 29 U/L 12/20/2015 Comp Metabolic Uur934 ALT(SGPT) 16 U/L 12/20/2015 Comp Metabolic Eoa865 BILI T 1.8 mg/dL 12/20/2015 Comp Metabolic Oqr928 ALBUMIN 2.8 g/dL 12/20/2015 Comp Metabolic Bkt414 TPRO 5.8 g/dL 12/20/2015 Comp Metabolic Mqp241 GLOB 3.0 g/dL 12/20/2015 Comp Metabolic Lqq284 A/G Ratio 0.9 Ratio 12/20/2015 Comp Metabolic Kic407 Osmo 277 mOsmo 12/20/2015 Vitamin D 25 Oh Dzy6885 VITAMIN D, 25 HYDROXY 110.69 ng/mL 10/24/2015 %Hba1C Gtk938 % HbA1c 28381-6 6.0 % 10/23/2015 %Hba1C Vdx968 Gluc Ave 126 mg/dL 10/23/2015 Magnesium Ord90 Mag 1.7 mg/dL 10/23/2015 Microalbumin Kim809 MicroAlb 0.2 mg/dL 10/23/2015 Tsh Ord6 hTSH II 2.74 uIU/mL 10/23/2015 Comp Metabolic Qwy576 NA 133 mEq/L 10/23/2015 Comp Metabolic Oqj781 K 3.6 mEq/L 10/23/2015 Comp Metabolic Trb527 CL 101 mEq/L 10/23/2015 Comp Metabolic Ezq250 CO2 27.0 mEq/L 10/23/2015 Comp Metabolic Pmv528 ANION GAP 9 10/23/2015 Comp Metabolic Xvj840 GLUCOSE 250 mg/dL 10/23/2015 Comp Metabolic Efh222 Creat 0.5 mg/dL 10/23/2015 Comp Metabolic Cjq479 eGFR 164 ml/min/1.73m2 10/23/2015 Comp Metabolic Ttd351 BUN 8 mg/dL 10/23/2015 Comp Metabolic Pdt535 B/C Ratio 14.8 Ratio 10/23/2015 Comp Metabolic Bga375 CALCIUM 8.4 mg/dL 10/23/2015 Comp Metabolic Yxu876 ALK PHOS 103 U/L 10/23/2015 Comp Metabolic Arv227 AST(SGOT) 37 U/L 10/23/2015 Comp Metabolic Cwr529 ALT(SGPT) 21 U/L 10/23/2015 Comp Metabolic Eyn248 BILI T 1.9 mg/dL 10/23/2015 Comp Metabolic Dvb117 ALBUMIN 3.1 g/dL 10/23/2015 Comp Metabolic Vwl233 TPRO 6.2 g/dL 10/23/2015 Comp Metabolic Hvw683 GLOB 3.1 g/dL 10/23/2015 Comp Metabolic Ywh408 A/G Ratio 1.0 Ratio 10/23/2015 Comp Metabolic Vkh665 Osmo 273 mOsmo 10/23/2015 Cbc With Differential [...] 90.7 fl 10/23/2015 Cbc With Differential Ord2 [place]% 9.5 % 10/23/2015 Cbc With Differential Ord2 [...] 0.53 K/ul 10/23/2015 Cbc With Differential Ord2 [place] ABS# 0.4 K/ul 10/23/2015 Cbc With Differential Ord2 [place] ABS# 0.2 K/ul 10/23/2015 Cbc With Differential Ord2 Baso ABS# 0.0 K/ul 10/23/2015 Cbc With Differential Ord2 New Analyzer Notice Please note new ref ranges starting 08-22-2015 due to implemntation of new five part differential hematolgy analyzer. 10/23/2015 Comp Metabolic Vjh911 NA 133 mEq/L 03/15/2015 Comp Metabolic Zvq701 K 3.9 mEq/L 03/15/2015 Comp Metabolic Rav175 CL 102 mEq/L 03/15/2015 Comp Metabolic Iez870 CO2 26.0 mEq/L 03/15/2015 Comp Metabolic Nqq917 ANION GAP 9 03/15/2015 Comp Metabolic Awf220 GLUCOSE 117 mg/dL 03/15/2015 Comp Metabolic Boc172 Creat 0.6 mg/dL 03/15/2015 Comp Metabolic Vyd522 eGFR 143 ml/min/1.73m2 03/15/2015 Comp Metabolic Tbd685 BUN 13 mg/dL 03/15/2015 Comp Metabolic Oev932 B/C Ratio 21.3 Ratio 03/15/2015 Comp Metabolic Vml367 CALCIUM 8.7 mg/dL 03/15/2015 Comp Metabolic Byi697 ALK PHOS 70 U/L 03/15/2015 Comp Metabolic Rga495 AST(SGOT) 24 U/L 03/15/2015 Comp Metabolic Gxj050 ALT(SGPT) 14 U/L 03/15/2015 Comp Metabolic Rcv425 BILI T 1.2 mg/dL 03/15/2015 Comp Metabolic Cff514 ALBUMIN 3.3 g/dL 03/15/2015 Comp Metabolic Ecr817 TPRO 6.6 g/dL 03/15/2015 Comp Metabolic Vxb416 GLOB 3.3 g/dL 03/15/2015 Comp Metabolic Iwy127 A/G Ratio 1.0 Ratio 03/15/2015 Comp Metabolic Xxx877 Osmo 268 mOsmo 03/15/2015 Lipid Ord30 CHOL [...] Differential Ord2 RDW 20.1 % 03/15/2015 %Hba1C Ris201 % HbA1c 51447-1 5.9 % 03/15/2015 %Hba1C Dsz488 Gluc Ave 123 mg/dL 03/15/2015 Cbc With [...] Ord2 RDW 19.8 % 02/28/2015 Comp Metabolic Xtj748 NA 131 mEq/L 02/28/2015 Comp Metabolic Iix730 K 3.8 mEq/L 02/28/2015 Comp Metabolic Ogx639 CL 100 mEq/L 02/28/2015 Comp Metabolic Kss516 CO2 24.0 mEq/L 02/28/2015 Comp Metabolic Wqj813 ANION GAP 11 02/28/2015 Comp Metabolic Fpk873 GLUCOSE 106 mg/dL 02/28/2015 Comp Metabolic Nah883 Creat 0.6 mg/dL 02/28/2015 Comp Metabolic Duw520 eGFR 155 ml/min/1.73m2 02/28/2015 Comp Metabolic Uoh616 BUN 10 mg/dL 02/28/2015 Comp Metabolic Hjm793 B/C Ratio 17.5 Ratio 02/28/2015 Comp Metabolic Wdn018 CALCIUM 8.5 mg/dL 02/28/2015 Comp Metabolic Puf325 ALK PHOS 64 U/L 02/28/2015 Comp Metabolic Mlf132 AST(SGOT) 35 U/L 02/28/2015 Comp Metabolic Fei236 ALT(SGPT) 59 U/L 02/28/2015 Comp Metabolic Cqp612 BILI T 1.7 mg/dL 02/28/2015 Comp Metabolic Yfs082 ALBUMIN 3.1 g/dL 02/28/2015 Comp Metabolic Cmw964 TPRO 5.9 g/dL 02/28/2015 Comp Metabolic Vtc418 GLOB 2.8 g/dL 02/28/2015 Comp Metabolic Mas941 A/G Ratio 1.1 Ratio 02/28/2015 Comp Metabolic Puy328 Osmo 262 mOsmo 02/28/2015 Review of Systems [...] None Full Exam - General 1995 Ears/Nose/Throat otoscopic exam Overall: tympanic membranes clear 03/18/2018 None Full Exam - General 1994 Ears/Nose/Throat internal nose Nasal cavity: ulceration 03/18/2018 None Full Exam - General 1995 Ears/Nose/Throat lips/teeth/gingiva Overall: benign lips 03/18/2018 None Full Exam - General 1995 Ears/Nose/Throat lips/teeth/gingiva Overall: normal dentition 03/18/2018 None Full Exam - General 1994 [...] normal 01/26/2018 None Full Exam - General 1995 Ears/Nose/Throat lips/teeth/gingiva Overall: benign lips 01/26/2018 None [...] lips 09/08/2016 None Full Exam - General 1994 Ears/Nose/Throat lips/teeth/gingiva Overall: normal dentition 09/08/2016 None [...] clear 08/19/2016 None Full Exam - General 1995 Ears/Nose/Throat [...] NO PRSV 4 ELPIDIO 3 YRS+ CPT-4: 14098 05/28/2017 TOBACCO-USE CERAMIC CHEMIST 3-[address]: 270116138 CPT-4: G0436 05/28/2017 ADMIN INFLUENZA VIRUS VAC CPT-4: G0008 05/28/2017 TOBACCO-USE CERAMIC CHEMIST 3-[address]: 231085956 CPT-4: G0436 04/02/2017 PNEUMOCOCCAL VACC [address]: 06020076 CPT-4: 50269 04/02/2017 ADMIN PNEUMOCOCCAL VACCINE SNOMED CT: 66033170 CPT-4: G0009 04/02/2017 TOBACCO-USE CERAMIC CHEMIST 3-[address]: 284633912 CPT-4: G0436 02/05/2017 TOBACCO-USE CERAMIC CHEMIST 3-[address]: 069807955 CPT-4: G0436 07/21/2016 TOBACCO-USE CERAMIC CHEMIST 3-[address]: 253073643 CPT-4: G0436 04/22/2016 ADMIN INFLUENZA VIRUS VAC CPT-4: G0008 04/22/2016 IIV4 FLU VACC NO PRESERV ID SNOMED CT: 34797301 CPT-4: 80301 04/22/2016 TOBACCO-USE CERAMIC CHEMIST 3-[address]: 437138684 CPT-4: G0436 01/22/2016 TOBACCO-USE CERAMIC CHEMIST 3-[address]: 515582899 CPT-4: G0436 10/23/2015 ADMIN INFLUENZA VIRUS VAC CPT-4: G0008 05/15/2015 IIV4 FLU VACC NO PRESERV ID Formatting Model/CDA Sections, Assigned to/Karol Juarez SNOMED CT: 46111906 CPT-4: 17745Tiksjnf 05/15/2015 Vital Signs Date Vital 03/18/2018 Blood Pressure 1: 118/72 Code : 8480-6 BMI: 29.0 Code : 75015-3 Heart Rate 1 : 68 bpm Height: 6' SpO2: 95% Weight: 214 lbs 01/26/2018 Height: Weight: 01/06/2018 Blood Pressure 1: 136/70 Code : 8480-6 BMI: 29.8 Code : 61488-9 Heart Rate 1 : 69 bpm Height: 6' SpO2: 99% Weight: 220 lbs 09/28/2017 Blood Pressure 1: 138/76 Code : 8480-6 BMI: 29.6 Code : 72320-3 Heart Rate 1 : 83 bpm Height: 6' SpO2: 99% Weight: 218 lbs 07/29/2017 Blood Pressure 1: 116/72 Code : 8480-6 BMI: 30.1 Code : 57883-2 Heart Rate 1 : 73 bpm Height: 6' SpO2: 97% Weight: 222 lbs 05/28/2017 Blood Pressure 1: 11666 Code : 8480-6 BMI: 30.4 Code : 68116-8 Heart Rate 1 : 79 bpm Height: 6' SpO2: 97% Weight: 224 lbs 04/02/2017 Blood Pressure 1: 128/68 Code : 8480-6 BMI: 31.7 Code : 86405-3 Heart Rate 1 : 77 bpm Height: 6' SpO2: 96% Weight: 234 lbs 03/04/2017 Blood Pressure 1: 138/86 Code : 8480-6 BMI: 31.7 Code : 21920-8 Heart Rate 1 : 88 bpm Height: 6' SpO2: 94% Weight: 234 lbs 02/05/2017 Blood Pressure 1: 140/78 Code : 8480-6 BMI: 30.1 Code : 89315-9 Heart Rate 1 : 68 bpm Height: 6' SpO2: 98% Weight: 222 lbs 12/22/2016 Blood Pressure 1: 146/70 Code : 8480-6 BMI: 30.4 Code : 18460-7 Heart Rate 1 : 77 bpm Height: 6' SpO2: 94% Temperature: 37.6 (C) / 99.6 (F) Weight: 224 lbs 09/08/2016 Blood Pressure 1: 136/82 Code : 8480-6 BMI: 31.8 Code : 00570-9 Heart Rate 1 : 77 bpm Height: 6' SpO2: 93% Weight: 234 lbs 8 oz 08/19/2016 Blood Pressure 1: 122/74 Code : 8480-6 BMI: 29.4 Code : 44420-0 Heart Rate 1 : 56 bpm Height: 6' SpO2: 91% Temperature: 36.9 (C) / 98.4 (F) Weight: 217 lbs 07/21/2016 Blood Pressure 1: 120/68 Code : 8480-6 BMI: 29.4 Code : 77651-6 Heart Rate 1 : 94 bpm Height: 6' SpO2: 93% Weight: 217 lbs 04/22/2016 Blood Pressure 1: 118/68 Code : 8480-6 BMI: 29.4 Code : 76115-3 Heart Rate 1 : 57 bpm Height: 6' SpO2: 98% Temperature: 36.6 (C) / 97.8 (F) Weight: 217 lbs 01/22/2016 Blood Pressure 1: 138/ Code : 8480-6 BMI: 30.8 Code : 86355-2 Heart Rate 1 : 70 bpm Height: 6' SpO2: 96% Weight: 227 lbs 01/04/2016 Blood Pressure 1: 116/70 Code : 8480-6 BMI: 29.6 Code : 74345-0 Heart Rate 1 : 66 bpm Height: 6' SpO2: 96% Weight: 218 lbs 11/16/2015 Blood Pressure 1: 110/64 Code : 8480-6 BMI: 31.6 Code : 27206-2 Heart Rate 1 : 73 bpm Height: 6' SpO2: 95% Weight: 233 lbs 10/23/2015 Blood Pressure 1: 138/74 Code : 8480-6 BMI: 31.3 Code : 40679-8 Heart Rate 1 : 73 bpm Height: 6' SpO2: 98% Weight: 231 lbs 2015 Blood Pressure 1: 122/74 Code : 8480-6 BMI: 32.3 Code : 31207-9 Heart Rate 1 : 67 bpm Height: 6' SpO2: 97% Weight: 238 lbs 05/15/2015 Blood Pressure 1: 110/60 Code : 8480-6 BMI: 31.1 Code : 72490-5 Heart Rate 1 : 81 bpm Height: 6' SpO2: 98% Weight: 229 lbs 03/22/2015 Blood Pressure 1: 116/62 Code : 8480-6 BMI: 31.2 Code : 46698-5 Heart Rate 1 : 74 bpm Height: 6' SpO2: 98% Weight: 230 lbs 01/23/2015 Blood Pressure 1: 124/68 Code : 8480-6 BMI: 31.1 Code : 48729-2 Heart Rate 1 : 74 bpm Height: 6' Weight: 229 lbs 12/20/2014 Blood Pressure 1: 110/74 Code : 8480-6 BMI: 30.9 Code : 16497-9 Heart Rate 1 : 72 bpm Height: [...] Present Encounters Encounter Performer Location Codes Date ([id number]) [id number] EST. PATIENT, LEVEL IV Diagnosis: Chronic pain syndrome[ICD10: G89.4] Diagnosis: Essential (primary) hypertension[ICD10: I10] Diagnosis: Type 2 diabetes mellitus with hyperglycemia[ICD10: E11.65] Diagnosis: Unsteadiness on feet[ICD10: R26.81] Diagnosis: Muscle weakness (generalized)[ICD10: M62.81] [facility] CPT-4: 81210 03/18/2018 ([id number]) [id number] EST. PATIENT, LEVEL IV Diagnosis: Type 2 diabetes mellitus without complications[ICD10: E11.9] Diagnosis: Essential (primary) hypertension[ICD10: I10] Diagnosis: Chronic pain syndrome[ICD10: G89.4] [facility] CPT-4: 81280 01/06/2018 ([id number]) [id number] EST. PATIENT, LEVEL IV Diagnosis: Essential (primary) hypertension[ICD10: I10] Diagnosis: Chronic pain syndrome[ICD10: G89.4] Diagnosis: Type 2 diabetes mellitus without complications[ICD10: E11.9] Diagnosis: Other specified diseases of liver[ICD10: K76.89] Ayesha Lyn MD, [facility] CPT-4: 30956 09/28/2017 ([id number]) [id number] EST. 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 PATIENT, LEVEL IV Diagnosis: Type 2 diabetes mellitus without complications[ICD10: E11.9] Diagnosis: Essential (primary) hypertension[ICD10: I10] Diagnosis: Encounter for immunization[ICD10: Z23] Ayesha Lyn MD, [facility] CPT-4: 89130 05/28/2017 ([id number]) 94918 EST. PATIENT, LEVEL IV Diagnosis: Type 2 diabetes mellitus without complications[ICD10: E11.9] Diagnosis: Essential (primary) hypertension[ICD10: I10] Diagnosis: Tobacco use[ICD10: Z72.0] Diagnosis: Epistaxis[ICD10: R04.0] Diagnosis: Encounter for immunization[ICD10: Z23] Ayesha Lyn MD, [facility] CPT-4: 42560 04/02/2017 ([id number]) 28801 EST. PATIENT, LEVEL IV Diagnosis: Type 2 diabetes mellitus without complications[ICD10: E11.9] Diagnosis: Essential (primary) hypertension[ICD10: I10] Diagnosis: Chronic pain syndrome[ICD10: G89.4] Ayesha Lyn MD, [facility] CPT-4: 84343 03/04/2017 ([id number]) 27079 EST. 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 PATIENT, LEVEL IV Diagnosis: Right upper quadrant pain[ICD10: R10.11] Diagnosis: VACCIN FOR INFLUENZA[ICD10: Z23] Diagnosis: Type 2 diabetes mellitus without complications[ICD10: E11.9] Diagnosis: Tobacco use[ICD10: Z72.0] Ayesha Lyn MD, [facility] CPT-4: 90079 04/22/2016 ([id number]) 08514 EST. 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 PATIENT, LEVEL III Diagnosis: Dysuria[ICD10: R30.0] Eunice Lyn MD [facility] CPT-4: 44499 01/04/2016 96589 EST. PATIENT, LEVEL IV Diagnosis: Encounter for follow-up examination after completed treatment for conditions other than malignant neoplasm[ICD10: Z09] Diagnosis: Chronic pain syndrome[ICD10: G89.4] Diagnosis: Essential (primary) hypertension[ICD10: I10] Eunice Lyn MD, [facility] CPT-4: 71217 11/16/2015 ([id number]) 19798 EST. 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 PATIENT, LEVEL IV Diagnosis: Type 2 diabetes mellitus without complications[ICD10: E11.9] Diagnosis: Chronic pain syndrome[ICD10: G89.4] Diagnosis: Chronic obstructive pulmonary disease, unspecified[ICD10: J44.9] Ayesha Lyn MD, [facility] CPT-4: 69400 2015 ([id number]) 54073 EST. PATIENT, LEVEL IV Diagnosis: Encounter for immunization[ICD10: Z23] Diagnosis: Type 2 diabetes mellitus without complications[ICD10: E11.9] Diagnosis: Chronic pain syndrome[ICD10: G89.4] Diagnosis: Insomnia, unspecified[ICD10: G47.00] [facility] CPT-4: 99974 05/15/2015 [id number]) 65101 EST. PATIENT, LEVEL IV Diagnosis: DIABETES TYPE II[ICD9: 250.00] Diagnosis: ESSENTIAL HYPERTENSION[ICD9: 401.9] [facility] CPT-4: 85857 03/22/2015 ([id number]) 16521 EST. PATIENT, LEVEL IV Diagnosis: Umbilical hernia[ICD9: 553.1] Diagnosis: 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[ICD9: V02.62] Diagnosis: CHRONIC PAIN SYNDROME[ICD9: 338.4] Diagnosis: Tumor of liver[ICD9: 239.0] Diagnosis: Urinary tract infection[ICD9: 599.0] Diagnosis: DIABETES TYPE II[ICD9: 250.00] [facility] CPT- 4: 36327 01/23/2015 ([id number]) OFFICE/OUTPATIENT VISIT NEW Diagnosis: DIABETES TYPE II[ICD9: 250.00] Diagnosis: ESOPHAGEAL REFLUX[ICD9: 530.81] Diagnosis: BACKACHE[ICD9: 724.5] Diagnosis: CHRONIC PAIN SYNDROME[ICD9: 338.4] Diagnosis: 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[ICD9: V02.62] [facility] CPT-4: 09077 12/20/2014 Plan of Care Planned Activity Notes Codes Status Date Appointment: Ayesha Lyn WPtel: [address] [place], [place] [id number] (15 min) Moderate 04/05/2018 Visit Plan: Musculo-skeletal [...] will look into a powered scooter through [employer]. [employer] could reliably run a powered scooter. I have recommended that if Medicare denies the purchase of a powered scooter through [employer] that they need to look at purchase [...] will look into a powered scooter through [employer]. [employer] could reliably run a powered scooter. I have recommended that if Medicare denies the purchase of a powered scooter through [employer] that they need to look at purchase [...] at home. 03/18/2018 Appointment: Ayesha Lyn WPtel: [address] [place], [place] [id number] (15 min) Moderate 03/18/2018 Patient Education: Patient [...] medication today. 01/06/2018 Appointment: Ayesha Lyn WPtel: [address] [place], [place] [id number] (15 min) Moderate 01/06/2018 Patient Education: Patient [...] refilled Morphine 09/28/2017 Appointment: Ayesha Lyn WPtel: [address] [place], [place] [id number] (15 min) Moderate 09/28/2017 Patient Education: Patient [...] last labs in May. 07/29/2017 Appointment: [phone] [facility] [id number] ([place] min) Moderate 07/29/2017 Patient Education: Patient [...] of abdomen. 05/28/2017 Appointment: [facility] Lyn [facility] [phone] [facility] [place] [place] (15 min) Moderate 05/28/2017 Patient Education: [...] stop smoking. 04/02/2017 Appointment: Ayesha Lyn WPtel: [address] [place], [place] [id number] (15 min) Moderate 04/02/2017 Patient Education: Patient [...] of over-medication. 03/04/2017 Appointment: Ayesha Lyn WPtel: [address] [place], [place] [id number] (15 min) Moderate 03/04/2017 Patient Education: Patient [...] I will send a note to the [facility] about the need to remove his driving privileges. 02/05/2017 Patient Education: Patient Medication Summary Completed 02/05/2017 Patient Education: Smoking and Tobacco Addiction Completed 02/05/2017 Patient Education: Obesity Completed 02/05/2017 Patient Education: Hypertension Completed 02/05/2017 Appointment: [facility] [phone] [facility] [place] [place] (15 min) Moderate 02/03/2017 Appointment: [phone] [place] (30 min) Complex 01/06/2017 Appointment: Eunice Betancourt WPtel: [phone] [facility] [place] (15 min) Moderate 01/01/2017 Visit Plan: Cough, shortness of breath - Pt was sent for outpatient chest x-ray and EKG - at the hospital he started feeling worse and went to the ER. 12/22/2016 Appointment: Ayesha Lyn WPtel: [phone] [facility] [place] (15 min) Moderate 12/22/2016 Appointment: [phone] [facility] [place] (15 min) Moderate 12/22/2016 Patient Education: Patient Medication Summary Completed 12/22/2016 Patient Education: Smoking and Tobacco Addiction Completed 12/22/2016 Patient Education: Obesity Completed 12/22/2016 Appointment: Lab Draw 12/18/2016 Patient Education: Patient Medication Summary Completed 12/04/2016 Visit Plan: Liver failure, status post - TIPS blockage - called to Dr. Peres - he will do repeat liver ultrasound, paracentesis. Residential Leasing Agent needs to be aware of the worsening symptoms this pt has been experiencing over the past 10 days. The radiologist reports that he called the machine inker at but never got to speak to [...] his lactulose. 09/08/2016 Appointment: Ayesha Lyn WPtel: [phone] [facility] [place] (15 min) Moderate 09/08/2016 Patient Education: [...] compliance. 08/19/2016 Appointment: [facility] Lyn [phone] [facility] (15 min) Moderate 08/19/2016 Patient Education: Patient [...] of confusion. 07/21/2016 Appointment: [facility]yes[facility] Lyn [phone] [facility] (15 min) Moderate 07/21/2016 Patient Education: Patient [...] [facility] physician. 04/22/2016 Appointment: Ayesha Lyn [facility]Ptel: [facility] [id number] (15 min) Moderate 04/22/2016 Patient Education: Patient [...] not improve. 01/04/2016 Appointment: Lexus Black [facility]Ptel[phone] (30 min) Complex 01/04/2016 Patient Education: Patient [...] Hypertension Completed 10/23/2015 Appointment: Lexus Black WPtel: [phone] [place] (15 min) Moderate 09/18/2015 Visit Plan: Diabetes [...] 2 weeks. 2015 Appointment: Ayesha Lyn WPtel: [facility]5 [facility] (15 min) Moderate 2015 Patient Education: Patient [...] in trazodone. 05/15/2015 Appointment: Ayesha Lyn WPtel: [phone] [facility] [place] (15 min) Moderate 05/15/2015 Patient Education: Patient Medication Summary Completed 05/15/2015 Appointment: [facility]yes[facility] Lyn [facility]el[facility] [address] [facility] (15 min) Moderate 05/09/2015 Visit Plan: Diabetes [...] C pt seeing specialist in [place] at [facility]. Umbilical hernia - surgery being planned. 03/22/2015 Appointment: Ayesha Lyn WPtel: [phone] [id number] Follow up 03/22/2015 Patient Education: Patient Medication Summary Completed 03/22/2015 Patient Education: Hypertension Completed 03/22/2015 Visit Plan: UTI-hospital follow up-symptoms resolved- monitor Lesion of sudky-zzelszcmri-avixyopzvt, Dr Basilio, at suspects cancer- will follow [...] improve. Hepatitis C pt sees hepatology at [facility] . 12/20/2014 Appointment: Ayesha Lyn WPtel: [phone] [facility] [place] [place] (S) New Patient 12/20/2014 Patient Education: Patient Medication Summary Completed 12/20/2014 Patient Education: Hypertension Completed 12/20/2014 Instructions Comment . Musculo-skeletal weakness - due to liver [...] will look into a powered scooter through [employer]. [employer] could reliably run a powered scooter. I have recommended that if Medicare denies the purchase of a powered scooter through [employer] that they need to look at purchase [...] in blood pressure readings at home. . Diabetes Mellitus - controlled - per [...] levels and increased risk of confusion. . Welcome to Medicare Exam - today [...] and to maintain independence in the home. TRY TO DRINK WATER - AT LEAST 8 - 8 OZ GLASSES OF WATER . UTI - pt with positive urinalysis - culture sent if appropriate. Antibiotic electronically prescribed to pt's pharmacy of choice. Pt to call if symptoms do not improve. . Musculo-skeletal weakness - due to liver [...] will look into a powered scooter through [employer]. [employer] could reliably run a powered scooter. I have recommended that if Medicare denies the purchase of a powered scooter through [employer] that they need to look at purchase [...] in blood pressure readings at home. . Hypertension - well controlled - continue [...] over-medication. Nose ulceration - rx for mupirocin use the saline gel in your nose [...] again recommended patient to stop smoking. . Welcome to Medicare Exam - today [...] and to maintain independence in the home. restart lactulose as previously prescribed . Liver failure, status post - TIPS blockage - called to Dr. Peres - he will do repeat liver ultrasound, paracentesis. Residential Leasing Agent needs to be aware of the worsening symptoms this pt has been experiencing over the past 10 days. The radiologist reports that he called the machine inker at but never got to speak to [...] without the pt routinely taking his lactulose. [facility] through [employer] . Hypertension - well controlled - continue [...] repeat CT scan and ultrasound of abdomen. . Diabetes Mellitus - controlled - per [...] given to patient. RTC in 2 weeks. . UTI-hospital follow up-symptoms resolved-monitor Lesion of heved-rspdqkyuwo-kqfvwdiacb, Dr Basilio, at suspects cancer-will follow up [...] will consider an increase in trazodone. . Hypertension - well controlled - continue [...] on his last labs in May. . Hypertension - well controlled - continue [...] and understands the consequences of over-medication. . Hospital follow up - This was [...] but cannot force the medication compliance. . Diabetes Mellitus - controlled - per [...] C pt seeing specialist in [place] at [facility]. Umbilical hernia - surgery being planned. [...] improve. Hepatitis C pt sees hepatology at [facility] . . Diabetes Mellitus - controlled - [...] improvement in his function physically and mentally. . Diabetes Mellitus - controlled - per [...] consequences of over-medication. refilled pain medication today. get Mucinex DM and take this twice [...] cough. Chronic pain syndrome - refilled Morphine . Diabetes Mellitus - Uncontrolled - per [...] I will send a note to the [facility] about the need to remove his driving privileges. . Cough, shortness of breath - Pt was sent for outpatient chest x-ray and EKG - at the hospital he started feeling worse and went to the ER. . Welcome to Medicare Exam - today [...]
--- OUTSIDE RECORDS SUMMARY | 2018-07-14 15:14 | XMS REPORT | CCD ---
Author Author [facility] Organization [facility] Address [address] [place] [address] Phone Care Team Providers Care Floor Winder Name Role Phone PP Unavailable CCM Unavailable Summary Purpose Interface Exchange Insurance Providers Payer name Policy type / Coverage type Covered alliance party ID Effective Begin Date Effective End Date WPS Medicare Part B Medicare Part B [id number] Unknown [employer] - Medicare Part B [id number] Unknown Family history Sister Diagnosis Age At Onset Cancer Unknown Father Diagnosis Age At Onset Heart Attack Unknown Stroke Unknown Coronary Artery Disease Unknown Social History Social History Element Codes Description Effective Dates Marital status Unknown 12/20/2014 Number of children Unknown 0 12/20/2014 Employment Unknown Retired 12/20/[address]: 04367335 Currently smokes tobacco 12/20/2014 Number of years using tobacco Unknown 40 - 50 12/20/2014 Number of cigarettes/day Unknown < 10 12/20/[address]: 119987 Currently drinks alcohol 12/20/2014 Allergies, Adverse Reactions, [...] Start Date Stop Date Status Fill Instructions Bydureon 2 mg/0.65 mL subcutaneous pen injector RxNorm: 7953364 2 Milligram(s) SQ QW 03/26/2018 08/22/2018 Active please give needles 31guage needles - deliver to filiberto at her work please ipratropium-albuterol 0.5 mg-3 mg(2.5 mg base)/3 mL nebulization soln RxNorm: 2718621 1 INH daily 03/15/20182017 Active Ventolin HFA 90 mcg/actuation aerosol inhaler RxNorm: 561497 INHALE 2 PUFFS BY MOUTH FOUR TIMES DAILY NEEDED 02/24/2018 09/21/2018 Active Basaglar KwikPen U-100 Insulin 100 unit/mL (3 mL) subcutaneous RxNorm: 6067358 10 Unit(s) SQ QPM 01/26/20182018 Active Basaglar KwikPen U-100 Insulin 100 unit/mL (3 mL) subcutaneous RxNorm: 3431763 10 Unit(s) SQ QPM 01/26/20182017 Inactive Verna Mckoy U-100 Insulin 100 unit/mL (3 mL) subcutaneous pen RxNorm: 271223 10 Unit(s) SQ daily 01/14/2018 Inactive ipratropium-albuterol 0.5 mg-3 mg(2.5 mg base)/3 mL nebulization soln RxNorm: 9865401 1 INH tid x 3 days, bid x 3 days and q2H prn 01/1403/14/2018 Inactive morphine ER 15 mg tablet,extended release RxNorm: 316382 1 Tablet(s) PO TID as needed 01/06/2018 02/04/2018 Inactive furosemide 20 mg tablet RxNorm: 298035 1 Tablet(s) PO daily 04/26/2018 Active Xifaxan 550 mg tablet RxNorm: 998533 2 Tablet(s) PO BID 201704/26/2018 Active potassium chloride ER 20 mEq tablet,extended release RxNorm: 813140 1 Tablet(s) BID 08/28/2017 08/22/2018 Active Exelon Patch 4.6 mg/24 hr transdermal RxNorm: 566537 1 TD daily 08/28/2017 08/22/2018 Active trazodone 50 mg tablet RxNorm: 404569 1 Tablet(s) PO QPM as needed insomnia TAKE 1 TABLET BY MOUTH ONCE DAILY NEEDED 08/28/2017 08/22/2018 Active Generic For: DESYREL 50 MG TABLET 11/12/2016 9:00:24 AM Remeron 15 mg tablet RxNorm: 477084 1 Tablet(s) PO QPM TAKE 1 TABLET BY MOUTH EVERY NIGHT AT BEDTIME 08/28/20172018 Active Generic For:REMERON 15MG 11/12 9:00:28 AM Protonix 20 mg tablet,delayed release RxNorm: 149899 1 Tablet(s) PO daily 08/28/2017 08/22/2018 Active Pristiq 50 mg tablet,extended release RxNorm: 200093 1 Tablet(s) PO daily 08/28/2017 08/22/2018 Active 10/13/2016 9:27:26 AM Ventolin HFA 90 mcg/actuation aerosol inhaler RxNorm: 268195 2 INHALE 2 PUFFS BY MOUTH FOUR TIMES DAILY NEEDED 07/29/2017 02/23/2018 Inactive morphine ER 15 mg tablet,extended release RxNorm: 016907 1 Tablet(s) PO TID as needed 07/29/2017 08/27/2017 Inactive Ventolin HFA 90 mcg/actuation aerosol inhaler RxNorm: 923069 INHALE 2 PUFFS BY MOUTH FOUR TIMES DAILY NEEDED 07/10/2017 07/28/2017 Inactive Phenergan-Codeine 6.25 mg-10 mg/5 mL syrup RxNorm: 263428 5 Milliliter(s) PO Q6 as needed cough 07/10/2017 07/23/2017 Inactive albuterol sulfate 90 mcg/actuation breath activated powder inhaler RxNorm: 2598884 2 Puff(s) INH QID as needed dyspnea 06/02/2017 12/27/2017 Inactive morphine ER 15 mg tablet,extended release RxNorm: 657663 1 Tablet(s) PO TID as needed 06/02/2017 07/01/2017 Inactive albuterol sulfate 90 mcg/actuation breath activated powder inhaler RxNorm: 0618280 2 Puff(s) INH QID as needed dyspnea 05/28/2017 06/01/2017 Inactive Bydureon 2 mg/0.65 mL subcutaneous pen injector RxNorm: 0409263 2 Milligram(s) SQ QW 04/02/2017 08/29/2017 Inactive please give needles 31guage needles - deliver to filiberto at her work please lactulose 20 gram/30 mL oral solution RxNorm: 285499 2 Tablespoon(s) PO QID 03/05/2017 09/28/2017 Inactive furosemide 20 mg tablet RxNorm: 672354 1 Tablet(s) PO daily 09/28/2017 Inactive lactulose 10 gram/15 mL oral solution RxNorm: 158919 30 Milliliter(s) PO BID 02/05/2017 No Stop Date Active potassium chloride ER 20 mEq tablet,extended release RxNorm: 120353 1 Tablet(s) BID 02/05/2017 08/27/2017 Inactive Remeron 15 mg tablet RxNorm: 473978 1 Tablet(s) PO QPM TAKE 1 TABLET BY MOUTH EVERY NIGHT AT BEDTIME 02/05/20172017 Inactive Generic For:REMERON 15MG 9:00:28 AM Protonix 20 mg tablet,delayed release RxNorm: 199903 1 Tablet(s) PO daily 02/05/2017 08/27/2017 Inactive trazodone 50 mg tablet RxNorm: 185576 1 Tablet(s) PO QPM as needed insomnia TAKE 1 TABLET BY MOUTH ONCE DAILY NEEDED 02/05/2017 08/27/2017 Inactive Generic For: DESYREL 50 MG TABLET 11/12/2016 9:00:24 AM morphine ER 15 mg tablet,extended release RxNorm: 144874 1 Tablet(s) PO TID as needed 02/05/2017 03/06/2017 Inactive Lantus Solostar 100 unit/mL (3 mL) subcutaneous insulin pen RxNorm: 020952 15 Unit(s) SQ daily 02/05/2017 04/01/2017 Inactive Xifaxan 550 mg tablet RxNorm: 611884 2 Tablet(s) PO BID 201609/02/2017 Inactive Pristiq 50 mg tablet,extended release RxNorm: 010960 1 Tablet(s) PO daily 02/05/2017 08/27/2017 Inactive 10/13/2016 9:27:26 AM Exelon Patch 4.6 mg/24 hr transdermal RxNorm: 326332 1 TD daily 02/05/2017 08/27/2017 Inactive furosemide 20 mg tablet RxNorm: 455892 1 Tablet(s) PO daily 03/04/2017 Inactive Vitamin D3 1,000 unit tablet RxNorm: 889424 2 Tablet(s) PO QHS 01/22/2017 No Stop Date Active furosemide 20 mg tablet RxNorm: 497064 Tablet(s) PO 01/22/2017 02/04/2017 Inactive Xifaxan 550 mg tablet RxNorm: 869429 2 Tablet(s) PO BID 201602/04/2017 Inactive potassium chloride ER 20 mEq tablet,extended release RxNorm: 633889 2 Tablet(s) BID 1 Tablet(s) PO daily 01/22/20172016 Inactive Lasix 40 mg tablet RxNorm: 449051 TAKE ONE TABLET BY MOUTH IN THE MORNING AND ONE-HALF TABLET IN THE AFTERNOON 12/25/2016 01/21/2017 Inactive Ativan 1 mg tablet RxNorm: 795502 1 Tablet(s) PO Q6 as needed anxiety 12/25/2016 01/21/2017 Inactive lactulose 10 gram/15 mL oral solution RxNorm: 668008 15 Milliliter(s) PO BID 12/25/2016 02/04/2017 Inactive lactulose 20 gram/30 mL oral solution RxNorm: 456107 2 Tablespoon(s) PO QID 12/24/2016 12/24/2016 Inactive nicotine 7 mg/24 hr daily transdermal patch RxNorm: 455636 1 Patch TD daily Put on in the morning and take off at night 12/24/2016 01/21/2017 Inactive cefdinir 300 mg capsule RxNorm: 673562 1 Capsule(s) PO BID 12/31/2016 Inactive Zithromax 250 mg tablet RxNorm: 058467 1 Tablet(s) PO daily 12/26/2016 Inactive prednisone 20 mg tablet RxNorm: 270684 2 Tablet(s) PO QAM 12/2212/24/2016 Inactive Ventolin HFA 90 mcg/actuation aerosol inhaler RxNorm: 764763 2 inhale NASAL QID as needed INHALE 2 PUFFS BY MOUTH FOUR TIMES DAILY NEEDED 12/12/2016 07/09/2017 Inactive 04/07/2016 1:44:46 PM spironolactone 50 mg tablet RxNorm: 434544 TAKE 1 TABLET BY MOUTH ONCE DAILY 11/14/2016 11/08/2017 Inactive Generic For:ALDACTONE 50MG 11/12/2016 9:00:19 AM trazodone 50 mg tablet RxNorm: 442114 TAKE 1 TABLET BY MOUTH ONCE DAILY NEEDED 11/12/2016 02/04/2017 Inactive Generic For:DESYREL 50 MG TABLET 11/12/2016 9:00: 24 AM Remeron 15 mg tablet RxNorm: 143281 TAKE 1 TABLET BY MOUTH EVERY NIGHT AT BEDTIME 11/12/2016 01/10/2017 Inactive Generic For:REMERON 15MG 11/12/2016 9:00:28 AM morphine ER 15 mg tablet,extended release RxNorm: 696349 1 Tablet(s) PO TID 10/22/2016 11/20/2016 Inactive Lasix 40 mg tablet RxNorm: 648545 TAKE ONE TABLET BY MOUTH DAILY 10/13/2016 12/24/2016 Inactive Generic For:LASIX 40MG 10/13/2016 9:27:30 AM Pristiq 50 mg tablet,extended release RxNorm: 728971 TAKE 1 TABLET BY MOUTH ONCE DAILY 10/13/2016 02/04/2017 Inactive 10/13/2016 9:27:26 AM nicotine 7 mg/24 hr daily transdermal patch RxNorm: 19791009 1 Patch TD daily Put on in the morning and take off at night 10/03/2016 10/23/2016 Inactive nicotine 7 mg/24 hr daily transdermal patch RxNorm: 19791009 1 Patch TD daily Put on in the morning and take off at night 09/23/2016 10/02/2016 Inactive nicotine 7 mg/24 hr daily transdermal patch RxNorm: 19791009 1 Patch TD daily Put on in the morning and take off at night 09/18/2016 09/22/2016 Inactive glimepiride 4 mg tablet RxNorm: 565479 TAKE TWO TABLETS BY MOUTH DAILY IN THE MORNING 09/15/2016 01/21/2017 Inactive Generic For:*AMARYL 4MG 09/13/2016 9:08:43 AM Remeron 15 mg tablet RxNorm: 785780 1 Tablet(s) PO QHS 201611/11/2016 Inactive deliver to patient's sister FILIBERTO nicotine 7 mg/24 hr daily transdermal patch RxNorm: 19791009 1 Patch TD daily Put on in the morning and take off at night 08/22/2016 08/28/2016 Inactive nicotine 14 mg/24 hr daily transdermal patch RxNorm: 637387 1 Patch TD daily x1 week -Put on in the morning and take off at night, then decrease to 7 mg patches x 1 week 08/22/2016 08/28/2016 Inactive nicotine 7 mg/24 hr daily transdermal patch RxNorm: 19791009 1 Patch TD daily Put on in the morning and take off at night 08/21/2016 08/21/2016 Inactive nicotine 7 mg/24 hr daily transdermal patch RxNorm: 19791009 1 Patch TD daily Put on in the morning and take off at night 08/21/2016 08/20/2016 Inactive nicotine 14 mg/24 hr daily transdermal patch RxNorm: 805696 1 Patch TD daily -Put on in the morning and take off at night, then decrease to 7 mg patches x 1 week 08/21/2016 08/20/2016 Inactive nicotine 14 mg/24 hr daily transdermal patch RxNorm: 991703 1 Patch TD daily x1 week -Put on in the morning and take off at night, then decrease to 7 mg patches x 1 week 08/21/2016 08/21/2016 Inactive potassium chloride ER 20 mEq tablet,extended release RxNorm: 771358 Tablet(s) 1 Tablet(s) PO daily 08/14/2016 01/21/2017 Inactive Remeron 15 mg tablet RxNorm: 614918 1 Tablet(s) PO QHS 201509/14/2016 Inactive deliver to patient's sister FILIBERTO omeprazole 20 mg capsule,delayed release RxNorm: 145348 TAKE 1 CAPSULE BY MOUTH TWICE DAILY 07/15/2016 01/21/2017 Inactive Generic For:PRILOSEC 20MG 07/15/2016 8: 59:16 AM trazodone 50 mg tablet RxNorm: 143978 Tablet(s) Tablet(s) TAKE ONE TABLET BY MOUTH DAILY NEEDED 07/15/20162016 Inactive Pristiq 50 mg tablet,extended release RxNorm: 621496 TAKE 1 TABLET BY MOUTH ONCE DAILY 06/16/2016 10/12/2016 Inactive 06/16/2016 9:02:33 AM Lasix 40 mg tablet RxNorm: 862562 TAKE ONE TABLET BY MOUTH DAILY 06/16/2016 10/12/2016 Inactive Generic For:LASIX 40MG 06/16/2016 9:02:29 AM Ventolin HFA 90 mcg/actuation aerosol inhaler RxNorm: 443747 2 inhale NASAL QID as needed INHALE 2 PUFFS BY MOUTH FOUR TIMES DAILY NEEDED 04/22/2016 11/17/2016 Inactive 04/07/2016 1:44:46 PM mupirocin 2 % topical ointment RxNorm: 997314 1 Application TOP BID 04/22/2016 05/01/2016 Inactive apply in nose twice daily Ventolin HFA 90 mcg/actuation aerosol inhaler RxNorm: 002172 INHALE 2 PUFFS BY MOUTH FOUR TIMES DAILY NEEDED 04/07/2016 04/21/2016 Inactive 04/07/2016 1:44:46 PM trazodone 50 mg tablet RxNorm: 015123 Tablet(s) Tablet(s) TAKE ONE TABLET BY MOUTH DAILY NEEDED 03/18/20162015 Inactive potassium chloride ER 20 mEq tablet,extended release RxNorm: 003670 1 Tablet(s) PO daily 03/17/2016 08/13/2016 Inactive Pristiq 50 mg tablet,extended release RxNorm: 695476 1 Tablet(s) PO daily 02/18/2016 06/15/2016 Inactive Lasix 40 mg tablet RxNorm: 452796 TAKE ONE TABLET BY MOUTH DAILY 02/18/2016 06/15/2016 Inactive Generic For:LASIX 40MG 02/16/2016 9:03:51 AM glimepiride 4 mg tablet RxNorm: 620038 TAKE TWO TABLETS BY MOUTH DAILY IN THE MORNING 02/18/2016 09/14/2016 Inactive Generic For:*AMARYL 4MG 02/16/2016 9:03:44 AM Ventolin HFA 90 mcg/actuation aerosol inhaler RxNorm: 510644 INHALE 2 PUFFS BY MOUTH FOUR TIMES DAILY NEEDED 02/18/2016 04/06/2016 Inactive 02/16/2016 9:04:47 AM trazodone 50 mg tablet RxNorm: 661563 Tablet(s) TAKE ONE TABLET BY MOUTH DAILY NEEDED 01/17/2016 03/16/2016 Inactive Generic For:DESYREL 50 MG TABLET 08/17/2015 9:45:00 AM ciprofloxacin 500 mg tablet RxNorm: 174978 1 Tablet(s) PO BID 01/04/2016 01/10/2016 Inactive Ventolin HFA 90 mcg/actuation aerosol inhaler RxNorm: 869643 INHALE 2 PUFFS BY MOUTH FOUR TIMES DAILY NEEDED 01/02/2016 02/17/2016 Inactive 01/02/2016 1:45:42 PM omeprazole 20 mg capsule,delayed release RxNorm: 526765 TAKE 1 CAPSULE BY MOUTH TWICE DAILY 12/18/2015 07/14/2016 Inactive Generic For:PRILOSEC 20MG 12/18/2015 10 :05:45 AM Ventolin HFA 90 mcg/actuation aerosol inhaler RxNorm: 622073 2 INH QID as needed 11/19/2015 01/01/2016 Inactive dc PROAIR trazodone 100 mg tablet RxNorm: 936084 1 Tablet(s) PO QHS 11/1512/15/2015 Inactive spironolactone 50 mg tablet RxNorm: 539419 TAKE 1 TABLET BY MOUTH ONCE DAILY 10/24/2015 10/17/2016 Inactive Generic For:ALDACTONE 50MG 10/23/2015 11:26:43 AM mupirocin 2 % topical ointment RxNorm: 057720 1 Application TOP QID 10/23/2015 10/29/2015 Inactive Lasix 40 mg tablet RxNorm: 285197 TAKE ONE TABLET BY MOUTH DAILY 10/22/2015 02/17/2016 Inactive Generic For:LASIX 40MG 10/22/2015 4:29:14 PM10/19/2015 9:43:00 AM Pristiq 50 mg tablet,extended release RxNorm: 377962 1 Tablet(s) PO daily 10/19/2015 02/15/2016 Inactive potassium chloride ER 20 mEq tablet,extended release RxNorm: 283481 1 Tablet(s) PO daily 10/19/2015 03/16/2016 Inactive trazodone 50 mg tablet RxNorm: 239543 Tablet(s) TAKE ONE TABLET BY MOUTH DAILY NEEDED 10/19/2015 12/17/2015 Inactive Generic For:DESYREL 50 MG TABLET 08/17/2015 9:45:00 AM Ventolin HFA 90 mcg/actuation aerosol inhaler RxNorm: 767999 2 INH QID as needed 10/08/2015 11/18/2015 Inactive dc PROAIR prednisone 20 mg tablet RxNorm: 635450 3 Tablet(s) PO QAM 09/0509/07/2015 Inactive trazodone 50 mg tablet RxNorm: 049809 TAKE ONE TABLET BY MOUTH DAILY NEEDED 08/17/2015 10/15/2015 Inactive Generic For:DESYREL 50 MG TABLET 08/17/2015 9:45: 00 AM morphine ER 15 mg tablet,extended release RxNorm: 324723 1 Tablet(s) PO TID 08/07/2015 09/05/2015 Inactive glimepiride 4 mg tablet RxNorm: 654279 TAKE TWO TABLETS BY MOUTH DAILY IN THE MORNING 07/23/2015 02/17/2016 Inactive Generic For:*AMARYL 4MG 07/23/2015 10:52: 06 AM potassium chloride ER 20 mEq tablet,extended release RxNorm: 844278 1 Tablet(s) PO daily 06/29/2015 06/28/2015 Inactive potassium chloride ER 20 mEq tablet,extended release RxNorm: 691877 1 Tablet(s) PO daily 06/29/2015 10/18/2015 Inactive Lasix 40 mg tablet RxNorm: 259607 1 Tablet(s) PO daily 201410/21/2015 Inactive trazodone 50 mg tablet RxNorm: 725513 1 Tablet(s) PO daily as needed 06/22/2015 06/21/2015 Inactive Pristiq 50 mg tablet,extended release RxNorm: 249039 1 Tablet(s) PO daily 06/22/2015 10/18/2015 Inactive trazodone 50 mg tablet RxNorm: 366145 1 Tablet(s) PO daily as needed 06/22/2015 08/16/2015 Inactive ProAir HFA 90 mcg/actuation aerosol inhaler RxNorm: 7837466 2 Puff(s) INH QID as needed dyspnea 06/12/2015 10/07/2015 Inactive omeprazole 20 mg capsule,delayed release RxNorm: 146819 1 Capsule(s) PO BID 05/31/2015 12/17/2015 Inactive DC protonix pantoprazole 40 mg tablet,delayed release RxNorm: 449068 1 Tablet(s) PO daily 05/25/2015 05/30/2015 Inactive Pristiq 50 mg tablet,extended release RxNorm: 087995 1 Tablet(s) PO daily 03/23/2015 06/20/2015 Inactive Lasix 40 mg tablet RxNorm: 167850 1 Tablet(s) PO daily 201405/14/2015 Inactive morphine ER 15 mg tablet,extended release RxNorm: 561550 1 Tablet(s) PO TID 03/06/2015 04/04/2015 Inactive Klor-Con M20 mEq tablet,extended release RxNorm: 5884267 1 Tablet(s) PO daily 02/22/2015 05/14/2015 Inactive ProAir HFA 90 mcg/actuation aerosol inhaler RxNorm: 4397790 2 Puff(s) INH QID as needed dyspnea 02/15/2015 06/11/2015 Inactive albuterol sulfate 90 mcg/actuation breath activated powder inhaler RxNorm: 8366361 2 Puff(s) INH QID as needed dyspnea 02/15/2015 09/10/2015 Inactive ProAir HFA 90 mcg/actuation aerosol inhaler RxNorm: 1565320 2 Puff(s) INH QID as needed dyspnea 02/15/2015 02/14/2015 Inactive morphine ER 15 mg tablet,extended release RxNorm: 104494 1 Tablet(s) PO TID 01/25/2015 02/23/2015 Inactive morphine 15 mg capsule RxNorm: 553010 1 Capsule(s) PO TID 01/2301/24/2015 Inactive morphine 15 mg capsule RxNorm: 856290 1 Capsule(s) PO TID 01/0901/22/2015 Inactive omeprazole 40 mg capsule,delayed release RxNorm: 704812 1 Capsule(s) PO daily 12/28/2014 12/27/2014 Inactive DC protonix omeprazole 40 mg capsule,delayed release RxNorm: 791150 1 Capsule(s) PO daily 12/28/2014 05/30/2015 Inactive DC protonix glimepiride 4 mg tablet RxNorm: 984156 2 Tablet(s) PO QAM 12/2707/22/2015 Inactive nicotine 21 mg/24 hr daily transdermal patch RxNorm: 794616 1 Patch PO daily 12/26/2014 01/22/2015 Inactive morphine 15 mg capsule RxNorm: 768809 1 Capsule(s) PO TID 12/2001/08/2015 Inactive Pristiq 50 mg tablet,extended release RxNorm: 864499 1 Tablet(s) PO daily 12/20/2014 01/18/2015 Inactive pantoprazole 40 mg tablet,delayed release RxNorm: 971875 1 Tablet(s) PO daily 12/20/2014 12/27/2014 Inactive magnesium oxide 400 mg tablet RxNorm: 693096 1 Tablet(s) PO daily No Start Date Active melatonin 3 mg tablet RxNorm: 014708 1 Tablet(s) PO daily No Start Date Active Novolin R 100 unit/mL injection solution RxNorm: 629443 ssi: 4u 150-200, 9h422-613 , 8u 251-300, 10u 301-350, 12u 351 Unit(s) Inj No Start Date Active 12u 351-400 over 351 give [address] ipratropium-albuterol 0.5 mg-3 mg(2.5 mg base)/3 mL nebulization soln RxNorm: 3367588 1 INH q2H prn No Start Date 01/2018 Inactive glimepiride 4 mg tablet RxNorm: 496221 2 Tablet(s) PO QAM No Start Date 12/26/2014 Inactive Exelon Patch 4.6 mg/24 hr transdermal RxNorm: 750000 1 TD daily No Start Date 02/04/2017 Inactive spironolactone 50 mg tablet RxNorm: 829878 1 Tablet(s) PO daily No Start Date 05/14/2015 Inactive Lasix 40 mg tablet RxNorm: 191604 1 Tablet(s) PO daily No Start Date 03/22/2015 Inactive Protonix 20 mg tablet,delayed release RxNorm: 055362 1 Tablet(s) PO daily No Start Date 02/04/2017 Inactive Ventolin HFA 90 mcg/actuation aerosol inhaler RxNorm: 720751 2 INH QID as needed No Start Date 10/07/2015 Inactive dc PROAIR lactulose 20 gram/30 mL oral solution RxNorm: 882759 2 Tablespoon(s) PO QID No Start Date 12/23/2016 Inactive Xifaxan 550 mg tablet RxNorm: 198635 2 Tablet(s) PO daily No Start Date 01/21/2017 Inactive Klor-Con M20 mEq tablet,extended release RxNorm: 195993 1 Tablet(s) PO daily No Start Date 02/21/2015 Inactive Vitamin D3 1,000 unit tablet RxNorm: 506804 1 Tablet(s) PO TID No Start Date 01/21/2017 Inactive Trazadone Oral RxNorm : oral No Start Date 03/18/2016 Inactive Levemir 100 unit/mL subcutaneous solution RxNorm: 355033 10 Unit(s) SQ daily No Start Date 02/04/2017 Inactive melatonin 10 mg RxNorm : 1 PO daily No Start Date 01/21/2017 Inactive Medication Administered No Medication Administered data Immunizations Vaccine Codes Date Status Influenza CVX: 141 05/28/2017 completed Pneumococcal (Adult) [...] Observation Code Item Item Code Result Date %Hba1C Ppm263 % HbA1c 99702-6 8.2 % 01/06/2018 %Hba1C Gev345 Gluc Ave 189 mg/dL 01/06/2018 Cbc With [...] 27.8 pg 01/06/2018 Cbc With Differential Ord2 Hughes% 11.2 % 01/06/2018 Cbc With Differential Ord2 [...] 0.73 K/ul 01/06/2018 Cbc With Differential Ord2 Hughes ABS# 0.4 K/ul 01/06/2018 Cbc With Differential Ord2 Eos ABS# 0.1 K/ul 01/06/2018 Cbc With Differential Ord2 Baso ABS# 0.0 K/ul 01/06/2018 Pt [id number] PT 16.1 seconds 01/06/2018 Pt [id number] INR 1.3 01/06/2018 Pt Kog3384 Low Intensity - 1.5-2.0 01/06/2018 Pt Jgh2446 Mod intensity - 2.0-3.0 01/06/2018 Pt Qlk4030 Hi intensity - 3.0-4.0 01/06/2018 Carbohydrate Antigen 19-9 605283 CA 19-9 130 U/mL 12/18/2017 Afp Serum Tumor Marker 633464 ALPHA- FETOPROTEIN TM 2.1 ng/mL 12/01/2017 Comp Metabolic Vwr141 NA 134 mEq/L 11/30/2017 Comp Metabolic Dva544 K 3.7 mEq/L 11/30/2017 Comp Metabolic Tfy742 CL 102 mEq/L 11/30/2017 Comp Metabolic Fmg678 CO2 26.0 mEq/L 11/30/2017 Comp Metabolic Plu883 ANION GAP 10 11/30/2017 Comp Metabolic Pzc131 GLUCOSE 295 mg/dL 11/30/2017 Comp Metabolic Nol587 Creat 0.5 mg/dL 11/30/2017 Comp Metabolic Wvn622 eGFR 178 ml/min/1.73m2 11/30/2017 Comp Metabolic Nrj605 BUN 11 mg/dL 11/30/2017 Comp Metabolic Exz837 B/C Ratio 22.0 Ratio 11/30/2017 Comp Metabolic Lsw911 CALCIUM 7.9 mg/dL 11/30/2017 Comp Metabolic Rwj059 ALK PHOS 167 U/L 11/30/2017 Comp Metabolic Pme561 AST(SGOT) 52 U/L 11/30/2017 Comp Metabolic Dxe527 ALT(SGPT) 31 U/L 11/30/2017 Comp Metabolic Feq392 BILI T 1.5 mg/dL 11/30/2017 Comp Metabolic Uld606 ALBUMIN 2.8 g/dL 11/30/2017 Comp Metabolic Ncq467 TPRO 6.2 g/dL 11/30/2017 Comp Metabolic Sji828 GLOB 3.4 g/dL 11/30/2017 Comp Metabolic Cjg443 A/G Ratio 0.8 Ratio 11/30/2017 Comp Metabolic Men983 Osmo 279 mOsmo 11/30/2017 Pt Jpt5022 PT 16.5 seconds 11/30/2017 Pt Quw8134 INR 1.4 11/30/2017 Pt Kqd7345 Low Intensity - 1.5-2.0 11/30/2017 Pt Qlj7777 Mod intensity - 2.0-3.0 11/30/2017 Pt Dpt8174 Hi intensity - 3.0-4.0 11/30/2017 Cbc With [...] 27.8 pg 11/30/2017 Cbc With Differential Ord2 Hughes% 11.2 % 11/30/2017 Cbc With Differential Ord2 [...] 0.77 K/ul 11/30/2017 Cbc With Differential Ord2 Hughes ABS# 0.4 K/ul 11/30/2017 Cbc With Differential Ord2 Eos ABS# 0.2 K/ul 11/30/2017 Cbc With Differential Ord2 Baso ABS# 0.0 K/ul 11/30/2017 Afp Serum Tumor Marker [id number] ALPHA- FETOPROTEIN TM 1.7 ng/mL 09/23/2017 Bili [...] 27.4 pg 09/22/2017 Cbc With Differential Ord2 Hughes% 10.0 % 09/22/2017 Cbc With Differential Ord2 [...] 0.99 K/ul 09/22/2017 Cbc With Differential Ord2 Hughes ABS# 0.5 K/ul 09/22/2017 Cbc With Differential Ord2 Eos ABS# 0.1 K/ul 09/22/2017 Cbc With Differential Ord2 Baso ABS# 0.0 K/ul 09/22/2017 Pt Wuu9668 PT 15.9 seconds 09/22/2017 Pt Ppg5519 INR 1.3 09/22/2017 Pt Vcp1366 Low Intensity - 1.5-2.0 09/22/2017 Pt Lco7316 Mod intensity - 2.0-3.0 09/22/2017 Pt Mow5529 Hi intensity - 3.0-4.0 09/22/2017 Comp Metabolic Siy108 NA 138 mEq/L 09/22/2017 Comp Metabolic Cau449 K 3.6 mEq/L 09/22/2017 Comp Metabolic Xdf403 CL 104 mEq/L 09/22/2017 Comp Metabolic Dxk518 CO2 28.0 mEq/L 09/22/2017 Comp Metabolic Hll180 ANION GAP 10 09/22/2017 Comp Metabolic Yml623 GLUCOSE 295 mg/dL 09/22/2017 Comp Metabolic Btp919 Creat 0.5 mg/dL 09/22/2017 Comp Metabolic Erz005 eGFR 174 ml/min/1.73m2 09/22/2017 Comp Metabolic Cnt341 BUN 10 mg/dL 09/22/2017 Comp Metabolic Dhg030 B/C Ratio 19.6 Ratio 09/22/2017 Comp Metabolic Vgp553 CALCIUM 8.9 mg/dL 09/22/2017 Comp Metabolic Okp057 ALK PHOS 161 U/L 09/22/2017 Comp Metabolic Ywp426 AST(SGOT) 41 U/L 09/22/2017 Comp Metabolic Jlu860 ALT(SGPT) 27 U/L 09/22/2017 Comp Metabolic Nze866 BILI T 1.5 mg/dL 09/22/2017 Comp Metabolic Byp884 ALBUMIN 3.2 g/dL 09/22/2017 Comp Metabolic Onf216 TPRO 6.4 g/dL 09/22/2017 Comp Metabolic Ucc825 GLOB 3.2 g/dL 09/22/2017 Comp Metabolic Kud448 A/G Ratio 1.0 Ratio 09/22/2017 Comp Metabolic Pro921 Osmo 286 mOsmo 09/22/2017 %Hba1C Klo369 % HbA1c 04431-5 9.0 % 07/29/2017 %Hba1C Uie125 Gluc Ave 212 mg/dL 07/29/2017 Comp Metabolic Awt500 NA 136 mEq/L 07/29/2017 Comp Metabolic Nmh119 K 3.7 mEq/L 07/29/2017 Comp Metabolic Uty741 CL 102 mEq/L 07/29/2017 Comp Metabolic Tuw156 CO2 27.0 mEq/L 07/29/2017 Comp Metabolic Jsd726 ANION GAP 11 07/29/2017 Comp Metabolic Nuq453 GLUCOSE 386 mg/dL 07/29/2017 Comp Metabolic Sio852 Creat 0.6 mg/dL 07/29/2017 Comp Metabolic Vyr756 eGFR 142 ml/min/1.73m2 07/29/2017 Comp Metabolic Tus194 BUN 10 mg/dL 07/29/2017 Comp Metabolic Sje420 B/C Ratio 16.4 Ratio 07/29/2017 Comp Metabolic Sfd908 CALCIUM 8.1 mg/dL 07/29/2017 Comp Metabolic Eui662 ALK PHOS 147 U/L 07/29/2017 Comp Metabolic Gcf845 AST(SGOT) 41 U/L 07/29/2017 Comp Metabolic Nem926 ALT(SGPT) 24 U/L 07/29/2017 Comp Metabolic Mfc674 BILI T 1.7 mg/dL 07/29/2017 Comp Metabolic Mwp378 ALBUMIN 2.8 g/dL 07/29/2017 Comp Metabolic Qaj330 TPRO 5.7 g/dL 07/29/2017 Comp Metabolic Lnc653 GLOB 2.9 g/dL 07/29/2017 Comp Metabolic Wzm969 A/G Ratio 0.9 Ratio 07/29/2017 Comp Metabolic Qdg168 Osmo 287 mOsmo 07/29/2017 Comp Metabolic Gnm310 NA 138 mEq/L 12/09/2016 Comp Metabolic Bun457 K 3.7 mEq/L 12/09/2016 Comp Metabolic Alb778 CL 105 mEq/L 12/09/2016 Comp Metabolic Pzm293 CO2 28.0 mEq/L 12/09/2016 Comp Metabolic Obt707 ANION GAP 9 12/09/2016 Comp Metabolic Rrp303 GLUCOSE 220 mg/dL 12/09/2016 Comp Metabolic Eii372 Creat 0.5 mg/dL 12/09/2016 Comp Metabolic Ziy806 eGFR 164 ml/min/1.73m2 12/09/2016 Comp Metabolic Htb746 BUN 12 mg/dL 12/09/2016 Comp Metabolic Agz312 B/C Ratio 22.2 Ratio 12/09/2016 Comp Metabolic Poq356 CALCIUM 7.9 mg/dL 12/09/2016 Comp Metabolic Daw893 ALK PHOS 85 U/L 12/09/2016 Comp Metabolic Xwk344 AST(SGOT) 26 U/L 12/09/2016 Comp Metabolic Htg991 ALT(SGPT) 12 U/L 12/09/2016 Comp Metabolic Gmr812 BILI T 1.6 mg/dL 12/09/2016 Comp Metabolic Pmq586 ALBUMIN 2.9 g/dL 12/09/2016 Comp Metabolic Eiy880 TPRO 5.8 g/dL 12/09/2016 Comp Metabolic Ydf516 GLOB 2.9 g/dL 12/09/2016 Comp Metabolic Zxo733 A/G Ratio 1.0 Ratio 12/09/2016 Comp Metabolic Cpz216 Osmo 282 mOsmo 12/09/2016 Metabolic Ord15 NA [...] Ord15 CALCIUM 8.3 mg/dL 10/20/2016 Comp Metabolic Azb737 NA 137 mEq/L 07/31/2016 Comp Metabolic Exg613 K 3.7 mEq/L 07/31/2016 Comp Metabolic Jje319 CL 105 mEq/L 07/31/2016 Comp Metabolic Ita081 CO2 24.0 mEq/L 07/31/2016 Comp Metabolic Xse206 ANION GAP 12 07/31/2016 Comp Metabolic Kqk920 GLUCOSE 205 mg/dL 07/31/2016 Comp Metabolic Tsi217 Creat 0.7 mg/dL 07/31/2016 Comp Metabolic Efj352 eGFR 132 ml/min/1.73m2 07/31/2016 Comp Metabolic Yog323 BUN 12 mg/dL 07/31/2016 Comp Metabolic Exg666 B/C Ratio 18.5 Ratio 07/31/2016 Comp Metabolic Gnw140 CALCIUM 8.4 mg/dL 07/31/2016 Comp Metabolic Fln262 ALK PHOS 90 U/L 07/31/2016 Comp Metabolic Qap198 AST(SGOT) 34 U/L 07/31/2016 Comp Metabolic Ecn508 ALT(SGPT) 22 U/L 07/31/2016 Comp Metabolic Udm230 BILI T 2.2 mg/dL 07/31/2016 Comp Metabolic Nhs783 ALBUMIN 3.3 g/dL 07/31/2016 Comp Metabolic Woo057 TPRO 6.8 g/dL 07/31/2016 Comp Metabolic Qmp743 GLOB 3.5 g/dL 07/31/2016 Comp Metabolic Ukq430 A/G Ratio 0.9 Ratio 07/31/2016 Comp Metabolic Dcl099 Osmo 279 mOsmo 07/31/2016 Cbc With Differential [...] 31.4 pg 07/31/2016 Cbc With Differential Ord2 Hughes% 10.5 % 07/31/2016 Cbc With Differential Ord2 [...] 0.91 K/ul 07/31/2016 Cbc With Differential Ord2 Hughes ABS# 0.6 K/ul 07/31/2016 Cbc With Differential Ord2 Eos ABS# 0.2 K/ul 07/31/2016 Cbc With Differential Ord2 Baso ABS# 0.0 K/ul 07/31/2016 %Hba1C Ewl233 % HbA1c 92853-7 5.6 % 07/31/2016 %Hba1C Fpe802 Gluc Ave 114 mg/dL 07/31/2016 Lipid Ord30 [...] 32.4 pg 05/21/2016 Cbc With Differential Ord2 Hughes% 10.6 % 05/21/2016 Cbc With Differential Ord2 [...] 0.78 K/ul 05/21/2016 Cbc With Differential Ord2 Hughes ABS# 0.5 K/ul 05/21/2016 Cbc With Differential Ord2 Eos ABS# 0.1 K/ul 05/21/2016 Cbc With Differential Ord2 Baso ABS# 0.0 K/ul 05/21/2016 Pt Wen3293 PT 16.4 seconds 05/21/2016 Pt Ohh4925 INR 1.4 05/21/2016 Pt Fvf3609 Low Intensity - 1.5-2.0 05/21/2016 Pt Nel9582 Mod intensity - 2.0-3.0 05/21/2016 Pt Uqi2212 Hi intensity - 3.0-4.0 05/21/2016 Comp Metabolic Eis415 NA 136 mEq/L 05/21/2016 Comp Metabolic Sgk347 K 3.4 mEq/L 05/21/2016 Comp Metabolic Mau192 CL 102 mEq/L 05/21/2016 Comp Metabolic Fom570 CO2 28.0 mEq/L 05/21/2016 Comp Metabolic Fqt225 ANION GAP 9 05/21/2016 Comp Metabolic Byj215 GLUCOSE 164 mg/dL 05/21/2016 Comp Metabolic Fgg908 Creat 0.5 mg/dL 05/21/2016 Comp Metabolic Cto490 eGFR 175 ml/min/1.73m2 05/21/2016 Comp Metabolic Qrv075 BUN 8 mg/dL 05/21/2016 Comp Metabolic Kbh376 B/C Ratio 15.7 Ratio 05/21/2016 Comp Metabolic Zhc466 CALCIUM 8.1 mg/dL 05/21/2016 Comp Metabolic Dqr480 ALK PHOS 77 U/L 05/21/2016 Comp Metabolic Apw173 AST(SGOT) 62 U/L 05/21/2016 Comp Metabolic Gru756 ALT(SGPT) 83 U/L 05/21/2016 Comp Metabolic Oge124 BILI T 2.3 mg/dL 05/21/2016 Comp Metabolic Bvx186 ALBUMIN 2.9 g/dL 05/21/2016 Comp Metabolic Ure208 TPRO 5.9 g/dL 05/21/2016 Comp Metabolic Kvi042 GLOB 3.0 g/dL 05/21/2016 Comp Metabolic Aay858 A/G Ratio 1.0 Ratio 05/21/2016 Comp Metabolic Auf995 Osmo 274 mOsmo 05/21/2016 Afp Serum Tumor Marker [id number] ALPHA- FETOPROTEIN TM 1.8 ng/mL 04/29/2016 Cbc [...] 92.2 fl 04/28/2016 Cbc With Differential Ord2 Hughes% 13.3 % 04/28/2016 Cbc With Differential Ord2 [...] 0.51 K/ul 04/28/2016 Cbc With Differential Ord2 Hughes ABS# 0.5 K/ul 04/28/2016 Cbc With Differential Ord2 Eos ABS# 0.2 K/ul 04/28/2016 Cbc With Differential Ord2 Baso ABS# 0.0 K/ul 04/28/2016 Pt Oxd5588 PT 15.6 seconds 04/28/2016 Pt Cac8245 INR 1.3 04/28/2016 Pt Nxs6863 Low Intensity - 1.5-2.0 04/28/2016 Pt Mae7770 Mod intensity - 2.0-3.0 04/28/2016 Pt Cxg0906 Hi intensity - 3.0-4.0 04/28/2016 Comp Metabolic Iib194 NA 136 mEq/L 04/28/2016 Comp Metabolic Ghg043 K 3.8 mEq/L 04/28/2016 Comp Metabolic Yyu101 CL 102 mEq/L 04/28/2016 Comp Metabolic Opn614 CO2 29.0 mEq/L 04/28/2016 Comp Metabolic Tsy407 ANION GAP 9 04/28/2016 Comp Metabolic Pef435 GLUCOSE 153 mg/dL 04/28/2016 Comp Metabolic Elr367 Creat 0.6 mg/dL 04/28/2016 Comp Metabolic Iii796 eGFR 143 ml/min/1.73m2 04/28/2016 Comp Metabolic Mrd567 BUN 7 mg/dL 04/28/2016 Comp Metabolic Jqm702 B/C Ratio 11.5 Ratio 04/28/2016 Comp Metabolic Jyi041 CALCIUM 8.4 mg/dL 04/28/2016 Comp Metabolic Kxj827 ALK PHOS 119 U/L 04/28/2016 Comp Metabolic Efs623 AST(SGOT) 42 U/L 04/28/2016 Comp Metabolic Wfm533 ALT(SGPT) 24 U/L 04/28/2016 Comp Metabolic Drd819 BILI T 1.9 mg/dL 04/28/2016 Comp Metabolic Icb818 ALBUMIN 3.1 g/dL 04/28/2016 Comp Metabolic Sqi380 TPRO 6.4 g/dL 04/28/2016 Comp Metabolic Ltl928 GLOB 3.4 g/dL 04/28/2016 Comp Metabolic Kbp081 A/G Ratio 0.9 Ratio 04/28/2016 Comp Metabolic Nvb345 Osmo 273 mOsmo 04/28/2016 Cbc With Differential [...] 32.2 pg 01/22/2016 Cbc With Differential Ord2 Hughes% 19.3 % 01/22/2016 Cbc With Differential Ord2 [...] 0.63 K/ul 01/22/2016 Cbc With Differential Ord2 Hughes ABS# 0.9 K/ul 01/22/2016 Cbc With Differential Ord2 Eos ABS# 0.1 K/ul 01/22/2016 Cbc With Differential Ord2 Baso ABS# 0.0 K/ul 01/22/2016 Comp Metabolic Bgf991 NA 134 mEq/L 01/22/2016 Comp Metabolic Fjp892 K 3.8 mEq/L 01/22/2016 Comp Metabolic Gxf047 CL 102 mEq/L 01/22/2016 Comp Metabolic Ecp831 CO2 28.0 mEq/L 01/22/2016 Comp Metabolic Dlj911 ANION GAP 8 01/22/2016 Comp Metabolic Kka312 GLUCOSE 179 mg/dL 01/22/2016 Comp Metabolic Ubc067 Creat 0.5 mg/dL 01/22/2016 Comp Metabolic Vze495 eGFR 164 ml/min/1.73m2 01/22/2016 Comp Metabolic Nbo218 BUN 11 mg/dL 01/22/2016 Comp Metabolic Wav809 B/C Ratio 20.4 Ratio 01/22/2016 Comp Metabolic Fmd510 CALCIUM 8.2 mg/dL 01/22/2016 Comp Metabolic Nyl313 ALK PHOS 171 U/L 01/22/2016 Comp Metabolic Exk789 AST(SGOT) 25 U/L 01/22/2016 Comp Metabolic Sbg131 ALT(SGPT) 13 U/L 01/22/2016 Comp Metabolic Ldn861 BILI T 2.4 mg/dL 01/22/2016 Comp Metabolic Bka440 ALBUMIN 3.0 g/dL 01/22/2016 Comp Metabolic Zlj089 TPRO 6.3 g/dL 01/22/2016 Comp Metabolic Kfs596 GLOB 3.3 g/dL 01/22/2016 Comp Metabolic Wwc444 A/G Ratio 0.9 Ratio 01/22/2016 Comp Metabolic Dqj112 Osmo 272 mOsmo 01/22/2016 Afp Serum Tumor Marker [id number] ALPHA- FETOPROTEIN TM 2.2 ng/mL 12/25/2015 Pt Cro7765 PT 16.4 seconds 12/20/2015 Pt Jzy7711 INR 1.4 12/20/2015 Pt Yhz4704 Low Intensity - 1.5-2.0 12/20/2015 Pt Qtb1405 Mod intensity - 2.0-3.0 12/20/2015 Pt Btl4864 Hi intensity - 3.0-4.0 12/20/2015 Cbc With [...] 91.2 fl 12/20/2015 Cbc With Differential Ord2 Hughes% 8.1 % 12/20/2015 Cbc With Differential Ord2 [...] 0.63 K/ul 12/20/2015 Cbc With Differential Ord2 Hughes ABS# 0.4 K/ul 12/20/2015 Cbc With Differential Ord2 Eos ABS# 0.1 K/ul 12/20/2015 Cbc With Differential Ord2 Baso ABS# 0.0 K/ul 12/20/2015 Cbc With Differential Ord2 New Analyzer Notice Please note new ref ranges starting 08-22-2015 due to implemntation of new five part differential hematolgy analyzer. 12/20/2015 Comp Metabolic Qna836 NA 138 mEq/L 12/20/2015 Comp Metabolic Uvx731 K 3.7 mEq/L 12/20/2015 Comp Metabolic Fsu856 CL 100 mEq/L 12/20/2015 Comp Metabolic Mgv283 CO2 31.0 mEq/L 12/20/2015 Comp Metabolic Hnm031 ANION GAP 11 12/20/2015 Comp Metabolic Koi415 GLUCOSE 150 mg/dL 12/20/2015 Comp Metabolic Nzx205 Creat 0.4 mg/dL 12/20/2015 Comp Metabolic Qpr504 eGFR 239 ml/min/1.73m2 12/20/2015 Comp Metabolic Eid272 BUN 9 mg/dL 12/20/2015 Comp Metabolic Nyb147 B/C Ratio 23.1 Ratio 12/20/2015 Comp Metabolic Osi173 CALCIUM 7.9 mg/dL 12/20/2015 Comp Metabolic Spd528 ALK PHOS 82 U/L 12/20/2015 Comp Metabolic Gsn500 AST(SGOT) 29 U/L 12/20/2015 Comp Metabolic Brs884 ALT(SGPT) 16 U/L 12/20/2015 Comp Metabolic Omm844 BILI T 1.8 mg/dL 12/20/2015 Comp Metabolic Mtg826 ALBUMIN 2.8 g/dL 12/20/2015 Comp Metabolic Plk591 TPRO 5.8 g/dL 12/20/2015 Comp Metabolic Mfk943 GLOB 3.0 g/dL 12/20/2015 Comp Metabolic Jes982 A/G Ratio 0.9 Ratio 12/20/2015 Comp Metabolic Kxn872 Osmo 277 mOsmo 12/20/2015 Vitamin D 25 Oh Nwz5257 VITAMIN D, 25 HYDROXY 110.69 ng/mL 10/24/2015 %Hba1C Pms115 % HbA1c 02160-1 6.0 % 10/23/2015 %Hba1C Vfi088 Gluc Ave 126 mg/dL 10/23/2015 Magnesium Ord90 Mag 1.7 mg/dL 10/23/2015 Microalbumin Fvb191 MicroAlb 0.2 mg/dL 10/23/2015 Tsh Ord6 hTSH II 2.74 uIU/mL 10/23/2015 Comp Metabolic Vco449 NA 133 mEq/L 10/23/2015 Comp Metabolic Lnj836 K 3.6 mEq/L 10/23/2015 Comp Metabolic Zqx921 CL 101 mEq/L 10/23/2015 Comp Metabolic Wgv778 CO2 27.0 mEq/L 10/23/2015 Comp Metabolic Col037 ANION GAP 9 10/23/2015 Comp Metabolic Svi303 GLUCOSE 250 mg/dL 10/23/2015 Comp Metabolic Qhc931 Creat 0.5 mg/dL 10/23/2015 Comp Metabolic Kpa070 eGFR 164 ml/min/1.73m2 10/23/2015 Comp Metabolic Qxy819 BUN 8 mg/dL 10/23/2015 Comp Metabolic Dss386 B/C Ratio 14.8 Ratio 10/23/2015 Comp Metabolic Yyx665 CALCIUM 8.4 mg/dL 10/23/2015 Comp Metabolic Qxd432 ALK PHOS 103 U/L 10/23/2015 Comp Metabolic Xeh980 AST(SGOT) 37 U/L 10/23/2015 Comp Metabolic Vus761 ALT(SGPT) 21 U/L 10/23/2015 Comp Metabolic Eff063 BILI T 1.9 mg/dL 10/23/2015 Comp Metabolic Wvm870 ALBUMIN 3.1 g/dL 10/23/2015 Comp Metabolic Jji946 TPRO 6.2 g/dL 10/23/2015 Comp Metabolic Xit667 GLOB 3.1 g/dL 10/23/2015 Comp Metabolic Pil956 A/G Ratio 1.0 Ratio 10/23/2015 Comp Metabolic Gms586 Osmo 273 mOsmo 10/23/2015 Cbc With Differential [...] 90.7 fl 10/23/2015 Cbc With Differential Ord2 Hughes% 9.5 % 10/23/2015 Cbc With Differential Ord2 [...] 0.53 K/ul 10/23/2015 Cbc With Differential Ord2 Hughes ABS# 0.4 K/ul 10/23/2015 Cbc With Differential Ord2 Eos ABS# 0.2 K/ul 10/23/2015 Cbc With Differential Ord2 Baso ABS# 0.0 K/ul 10/23/2015 Cbc With Differential Ord2 New Analyzer Notice Please note new ref ranges starting 08-22-2015 due to implemntation of new five part differential hematolgy analyzer. 10/23/2015 Comp Metabolic Cig629 NA 133 mEq/L 03/15/2015 Comp Metabolic Vgj237 K 3.9 mEq/L 03/15/2015 Comp Metabolic Isa386 CL 102 mEq/L 03/15/2015 Comp Metabolic Jgu083 CO2 26.0 mEq/L 03/15/2015 Comp Metabolic Ihp903 ANION GAP 9 03/15/2015 Comp Metabolic Eeb094 GLUCOSE 117 mg/dL 03/15/2015 Comp Metabolic Wak599 Creat 0.6 mg/dL 03/15/2015 Comp Metabolic Wys793 eGFR 143 ml/min/1.73m2 03/15/2015 Comp Metabolic Ofy521 BUN 13 mg/dL 03/15/2015 Comp Metabolic Lvq355 B/C Ratio 21.3 Ratio 03/15/2015 Comp Metabolic Yxi823 CALCIUM 8.7 mg/dL 03/15/2015 Comp Metabolic Jea742 ALK PHOS 70 U/L 03/15/2015 Comp Metabolic Rci637 AST(SGOT) 24 U/L 03/15/2015 Comp Metabolic Ucx606 ALT(SGPT) 14 U/L 03/15/2015 Comp Metabolic Apt200 BILI T 1.2 mg/dL 03/15/2015 Comp Metabolic Huq495 ALBUMIN 3.3 g/dL 03/15/2015 Comp Metabolic Rcw818 TPRO 6.6 g/dL 03/15/2015 Comp Metabolic Ema647 GLOB 3.3 g/dL 03/15/2015 Comp Metabolic Kna804 A/G Ratio 1.0 Ratio 03/15/2015 Comp Metabolic Vff187 Osmo 268 mOsmo 03/15/2015 Lipid Ord30 CHOL [...] Differential Ord2 RDW 20.1 % 03/15/2015 %Hba1C Jay698 % HbA1c 51769-3 5.9 % 03/15/2015 %Hba1C Xoh241 Gluc Ave 123 mg/dL 03/15/2015 Comp Metabolic Yih942 NA 131 mEq/L 02/28/2015 Comp Metabolic Ird905 K 3.8 mEq/L 02/28/2015 Comp Metabolic Wlo859 CL 100 mEq/L 02/28/2015 Comp Metabolic Tfd802 CO2 24.0 mEq/L 02/28/2015 Comp Metabolic Ush117 ANION GAP 11 02/28/2015 Comp Metabolic Xyl618 GLUCOSE 106 mg/dL 02/28/2015 Comp Metabolic Eci276 Creat 0.6 mg/dL 02/28/2015 Comp Metabolic Qri349 eGFR 155 ml/min/1.73m2 02/28/2015 Comp Metabolic Zxi007 BUN 10 mg/dL 02/28/2015 Comp Metabolic Coy971 B/C Ratio 17.5 Ratio 02/28/2015 Comp Metabolic Mjx811 CALCIUM 8.5 mg/dL 02/28/2015 Comp Metabolic Cog181 ALK PHOS 64 U/L 02/28/2015 Comp Metabolic Bhz270 AST(SGOT) 35 U/L 02/28/2015 Comp Metabolic Iyq003 ALT(SGPT) 59 U/L 02/28/2015 Comp Metabolic Xwa892 BILI T 1.7 mg/dL 02/28/2015 Comp Metabolic Als949 ALBUMIN 3.1 g/dL 02/28/2015 Comp Metabolic Gxs360 TPRO 5.9 g/dL 02/28/2015 Comp Metabolic Qtp331 GLOB 2.8 g/dL 02/28/2015 Comp Metabolic Bmz407 A/G Ratio 1.1 Ratio 02/28/2015 Comp Metabolic Hnn581 Osmo 262 mOsmo 02/28/2015 Cbc With Differential Ord2 WBC 4.6 K/uL [...] With Differential Ord2 RDW 19.8 % 02/28/2015 Review of Systems System Result Effective [...] sounds 03/18/2018 None Full Exam - General 1995 Abdomen abdominal exam Contour: protuberant 03/18/2018 None Full Exam - General 1995 Lymphatic neck nodes Overall: anterior cervical chain [...] accomodation 09/28/2017 None Full Exam - General 1995 Ears/Nose/Throat otoscopic exam Overall: external auditory canals clear 09/28/2017 None Full Exam - General 1995 Ears/Nose/Throat [...] clear 09/28/2017 None Full Exam - General 1995 Ears/Nose/Throat oral cavity/pharynx/larynx Overall: oropharyngeal mucosa clear 09/28/2017 None Full Exam - General 1995 Ears/Nose/Throat oral cavity/pharynx/larynx Overall: hypopharynx benign 09/28/2017 [...] lips 08/19/2016 None Full Exam - General 1995 Ears/Nose/Throat lips/teeth/gingiva Overall: normal dentition 08/19/2016 None Full Exam - General 1994 Ears/Nose/Throat oral cavity/pharynx/larynx Overall: oral mucosa clear 08/19/2016 None Full Exam - General 1995 Ears/Nose/Throat oral cavity/pharynx/larynx Overall: oropharyngeal mucosa clear 08/19/2016 None Full Exam - General 1995 Ears/Nose/Throat oral cavity/pharynx/larynx Overall: hypopharynx benign 08/19/2016 [...] NO PRSV 4 ELPIDIO 3 YRS+ CPT-4: 90081 05/28/2017 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-USE FLUE DUST LABORER 3-[address]: 238223397 CPT-4: G0436 05/28/2017 ADMIN INFLUENZA VIRUS VAC CPT-4: G0008 05/28/2017 TOBACCO-USE FLUE DUST LABORER 3-[address]: 388241573 CPT-4: G0436 04/02/2017 PNEUMOCOCCAL VACC [address]: 35858270 CPT-4: 92521 04/02/2017 ADMIN PNEUMOCOCCAL VACCINE SNOMED CT: 99218761 CPT-4: G0009 04/02/2017 TOBACCO-USE FLUE DUST LABORER 3-[address]: 662030002 CPT-4: G0436 02/05/2017 TOBACCO-USE FLUE DUST LABORER 3-[address]: 517265452 CPT-4: G0436 07/21/2016 TOBACCO-USE FLUE DUST LABORER 3-[address]: 896511694 CPT-4: G0436 04/22/2016 ADMIN INFLUENZA VIRUS VAC CPT-4: G0008 04/22/2016 IIV4 FLU VACC NO PRESERV ID SNOMED CT: 57416080 CPT-4: 61239 04/22/2016 TOBACCO-USE FLUE DUST LABORER 3-[address]: 772269630 CPT-4: G0436 01/22/2016 TOBACCO-USE FLUE DUST LABORER 3-[address]: 974442748 CPT-4: G0436 10/23/2015 ADMIN INFLUENZA VIRUS VAC CPT-4: G0008 05/15/2015 IIV4 FLU VACC NO PRESERV ID Formatting Model/CDA Sections, Assigned to/Karol Juarez SNOMED CT: 02915279 CPT-4: 31128Ebwmxtk 05/15/2015 Vital Signs Date Vital 03/18/2018 Blood Pressure 1: 118/72 Code : 8480-6 BMI: 29.0 Code : 25092-9 Heart Rate 1 : 68 bpm Height: 6' SpO2: 95% Weight: 214 lbs 01/26/2018 Height: Weight: 01/06/2018 Blood Pressure 1: 136/70 Code : 8480-6 BMI: 29.8 Code : 54222-5 Heart Rate 1 : 69 bpm Height: 6' SpO2: 99% Weight: 220 lbs 09/28/2017 Blood Pressure 1: 138/76 Code : 8480-6 BMI: 29.6 Code : 66232-3 Heart Rate 1 : 83 bpm Height: 6' SpO2: 99% Weight: 218 lbs 07/29/2017 Blood Pressure 1: 11672 Code : 8480-6 BMI: 30.1 Code : 53899-2 Heart Rate 1 : 73 bpm Height: 6' SpO2: 97% Weight: 222 lbs 05/28/2017 Blood Pressure 1: 11666 Code : 8480-6 BMI: 30.4 Code : 64136-4 Heart Rate 1 : 79 bpm Height: 6' SpO2: 97% Weight: 224 lbs 04/02/2017 Blood Pressure 1: 128/68 Code : 8480-6 BMI: 31.7 Code : 87414-5 Heart Rate 1 : 77 bpm Height: 6' SpO2: 96% Weight: 234 lbs 03/04/2017 Blood Pressure 1: 138/86 Code : 8480-6 BMI: 31.7 Code : 57354-5 Heart Rate 1 : 88 bpm Height: 6' SpO2: 94% Weight: 234 lbs 02/05/2017 Blood Pressure 1: 140/78 Code : 8480-6 BMI: 30.1 Code : 10419-3 Heart Rate 1 : 68 bpm Height: 6' SpO2: 98% Weight: 222 lbs 12/22/2016 Blood Pressure 1: 146/70 Code : 8480-6 BMI: 30.4 Code : 97145-0 Heart Rate 1 : 77 bpm Height: 6' SpO2: 94% Temperature: 37.6 (C) / 99.6 (F) Weight: 224 lbs 09/08/2016 Blood Pressure 1: 136/82 Code : 8480-6 BMI: 31.8 Code : 68740-4 Heart Rate 1 : 77 bpm Height: 6' SpO2: 93% Weight: 234 lbs 8 oz 08/19/2016 Blood Pressure 1: 122/74 Code : 8480-6 BMI: 29.4 Code : 15574-4 Heart Rate 1 : 56 bpm Height: 6' SpO2: 91% Temperature: 36.9 (C) / 98.4 (F) Weight: 217 lbs 07/21/2016 Blood Pressure 1: 120 Code : 8480-6 BMI: 29.4 Code : 62867-6 Heart Rate 1 : 94 bpm Height: 6' SpO2: 93% Weight: 217 lbs 04/22/2016 Blood Pressure 1: 118/68 Code : 8480-6 BMI: 29.4 Code : 59145-5 Heart Rate 1 : 57 bpm Height: 6' SpO2: 98% Temperature: 36.6 (C) / 97.8 (F) Weight: 217 lbs 01/22/2016 Blood Pressure 1: 138 Code : 8480-6 BMI: 30.8 Code : 42688-5 Heart Rate 1 : 70 bpm Height: 6' SpO2: 96% Weight: 227 lbs 01/04/2016 Blood Pressure 1: 116/70 Code : 8480-6 BMI: 29.6 Code : 10866-5 Heart Rate 1 : 66 bpm Height: 6' SpO2: 96% Weight: 218 lbs 11/16/2015 Blood Pressure 1: 110/64 Code : 8480-6 BMI: 31.6 Code : 65911-8 Heart Rate 1 : 73 bpm Height: 6' SpO2: 95% Weight: 233 lbs 10/23/2015 Blood Pressure 1: 138/74 Code : 8480-6 BMI: 31.3 Code : 45853-4 Heart Rate 1 : 73 bpm Height: 6' SpO2: 98% Weight: 231 lbs 2015 Blood Pressure 1: 122/74 Code : 8480-6 BMI: 32.3 Code : 71593-0 Heart Rate 1 : 67 bpm Height: 6' SpO2: 97% Weight: 238 lbs 05/15/2015 Blood Pressure 1: 110/60 Code : 8480-6 BMI: 31.1 Code : 03288-4 Heart Rate 1 : 81 bpm Height: 6' SpO2: 98% Weight: 229 lbs 03/22/2015 Blood Pressure 1: 116/62 Code : 8480-6 BMI: 31.2 Code : 04837-0 Heart Rate 1 : 74 bpm Height: 6' SpO2: 98% Weight: 230 lbs 01/23/2015 Blood Pressure 1: 124/68 Code : 8480-6 BMI: 31.1 Code : 97958-7 Heart Rate 1 : 74 bpm Height: 6' Weight: 229 lbs 12/20/2014 Blood Pressure 1: 110/74 Code : 8480-6 BMI: 30.9 Code : 96201-2 Heart Rate 1 : 72 bpm Height: [...] Directives Present Encounters Encounter Performer Location Codes ) [id number] EST. PATIENT, LEVEL IV Diagnosis: Chronic pain syndrome[ICD10: G89.4] Diagnosis: Essential (primary) hypertension[ICD10: I10] Diagnosis: Type 2 diabetes mellitus with hyperglycemia[ICD10: E11.65] Diagnosis: Unsteadiness on feet[ICD10: R26.81] Diagnosis: Muscle weakness (generalized)[ICD10: M62.81] [facility] CPT-4: 60730 03/18/2018 ([id number]) 77807 EST. PATIENT, LEVEL IV Diagnosis: Type 2 diabetes mellitus without complications[ICD10: E11.9] Diagnosis: Essential (primary) hypertension[ICD10: I10] Diagnosis: Chronic pain syndrome[ICD10: G89.4] Ayesha Lyn MD, [facility] CPT-4: 63725 01/06/2018 ([id number]) 39887 EST. PATIENT, LEVEL IV Diagnosis: Essential (primary) hypertension[ICD10: I10] Diagnosis: Chronic pain syndrome[ICD10: G89.4] Diagnosis: Type 2 diabetes mellitus without complications[ICD10: E11.9] Diagnosis: Other specified diseases of liver[ICD10: K76.89] Ayesha Lyn MD [facility] CPT-4: 87365 09/28/2017 ([id number]) 13430 EST. 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 PATIENT, LEVEL IV Diagnosis: Type 2 diabetes mellitus without complications[ICD10: E11.9] Diagnosis: Essential (primary) hypertension[ICD10: I10] Diagnosis: Encounter for immunization[ICD10: Z23] Ayesha Lyn MD [facility] CPT-4: 49612 05/28/2017 ([id number]) 23553 EST. PATIENT, LEVEL IV Diagnosis: Type 2 diabetes mellitus without complications[ICD10: E11.9] Diagnosis: Essential (primary) hypertension[ICD10: I10] Diagnosis: Tobacco use[ICD10: Z72.0] Diagnosis: Epistaxis[ICD10: R04.0] Diagnosis: Encounter for immunization[ICD10: Z23] Ayesha Lyn MD [facility] CPT-4: 04324 04/02/2017 ([id number]) 35989 EST. PATIENT, LEVEL IV Diagnosis: Type 2 diabetes mellitus without complications[ICD10: E11.9] Diagnosis: Essential (primary) hypertension[ICD10: I10] Diagnosis: Chronic pain syndrome[ICD10: G89.4] Ayesha Lyn MD [facility] CPT-4: 45737 03/04/2017 ([id number]) 67376 EST. 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 PATIENT, LEVEL IV Diagnosis: Right upper quadrant pain[ICD10: R10.11] Diagnosis: VACCIN FOR INFLUENZA[ICD10: Z23] Diagnosis: Type 2 diabetes mellitus without complications[ICD10: E11.9] Diagnosis: Tobacco use[ICD10: Z72.0] Ayesha Lyn MD [facility] CPT-4: 86075 04/22/2016 ([id number]) 05153 EST. 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 PATIENT, LEVEL III Diagnosis: Dysuria[ICD10: R30.0] Eunice Lyn MD, [facility] CPT-4: 56360 01/04/2016 75949 EST. PATIENT, LEVEL IV Diagnosis: Encounter for follow-up examination after completed treatment for conditions other than malignant neoplasm[ICD10: Z09] Diagnosis: Chronic pain syndrome[ICD10: G89.4] Diagnosis: Essential (primary) hypertension[ICD10: I10] Eunice Lyn MD, [facility] CPT-4: 17192 11/16/2015 ([id number]) 44158 EST. 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 PATIENT, LEVEL IV Diagnosis: Type 2 diabetes mellitus without complications[ICD10: E11.9] Diagnosis: Chronic pain syndrome[ICD10: G89.4] Diagnosis: Chronic obstructive pulmonary disease, unspecified[ICD10: J44.9] Ayesha Lyn MD, [facility] CPT-4: 14265 2015 ([id number]) 14185 EST. PATIENT, LEVEL IV Diagnosis: Encounter for immunization[ICD10: Z23] Diagnosis: Type 2 diabetes mellitus without complications[ICD10: E11.9] Diagnosis: Chronic pain syndrome[ICD10: G89.4] Diagnosis: Insomnia, unspecified[ICD10: G47.00] Ayesha Lyn MD, [facility] CPT-4: 06982 05/15/2015 ([id number] EST. PATIENT, LEVEL IV Diagnosis: DIABETES TYPE II[ICD9: 250.00] Diagnosis: ESSENTIAL HYPERTENSION[ICD9: 401.9] Ayesha Lyn MD, [facility] CPT-4: 19919 03/22/2015 ([id number] EST. PATIENT, LEVEL IV Diagnosis: Umbilical hernia[ICD9: 553.1] Diagnosis: 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[ICD9: V02.62] Diagnosis: CHRONIC PAIN SYNDROME[ICD9: 338.4] Diagnosis: Tumor of liver[ICD9: 239.0] Diagnosis: Urinary tract infection[ICD9: 599.0] Diagnosis: DIABETES TYPE II[ICD9: 250.00] Ayesha Lyn MD, [facility] CPT- 4: 21687 01/23/2015 ([id number]) OFFICE/OUTPATIENT VISIT NEW Diagnosis: DIABETES TYPE II[ICD9: 250.00] Diagnosis: ESOPHAGEAL REFLUX[ICD9: 530.81] Diagnosis: BACKACHE[ICD9: 724.5] Diagnosis: CHRONIC PAIN SYNDROME[ICD9: 338.4] Diagnosis: 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[ICD9: V02.62] Ayesha Lyn MD, [facility] CPT-4: 18141 12/20/2014 Plan of Care Planned Activity Notes Codes Status Date Visit Plan: Musculo-skeletal weakness - due to [...] will look into a powered scooter through [employer]. Cirilo could reliably run a powered scooter. I have recommended that if Medicare denies the purchase of a powered scooter through [employer] that they need to look at purchase [...] symptoms and in his diabetic control. However, Cirilo continues to live at home alone with his sisters visiting frequently, but they cannot control his dietary intake as they are not in the home 24 hours a day. Cirilo remains non-compliant with our recommendations and medical [...] will look into a powered scooter through [employer]. Cirilo could reliably run a powered scooter. I have recommended that if Medicare denies the purchase of a powered scooter through [employer] that they need to look at purchase [...] symptoms and in his diabetic control. However, Cirilo continues to live at home alone with his sisters visiting frequently, but they cannot control his dietary intake as they are not in the home 24 hours a day. Cirilo remains non-compliant with our recommendations and medical interventions. Hypertension - well controlled - continue with current medications, continue with no added salt diet. Pt has been encouraged to exercise daily. The pt has been advised to call the office if there are any acute concerns about change in blood pressure readings at home. 03/18/2018 Appointment: Ayesha Lyn WPtel: [address] [place], [place] [id number] (15 min) Moderate 03/18/2018 Patient Education: Patient [...] medication today. 01/06/2018 Appointment: Ayesha Lyn WPtel[id number] (15 min) Moderate 01/06/2018 Patient Education: Patient [...] - unsure of level of control as Cirilo does not check his FSBS at home. He is getting his shots routinely. Cough - Mucinex DM bid for cough. Chronic pain syndrome - refilled Morphine 09/28/2017 Appointment: Ayesha Lyn [facility]Ptel[facility] [phone] [id number] (15 min) Moderate 09/28/2017 Patient Education: Patient Medication Summary Completed 09/28/2017 Visit Plan: Hypertension - well [...] May. 07/29/2017 Appointment: Ayesha Lyn WPtel[facility] [phone] [id number] (15 min) Moderate 07/29/2017 Patient Education: Patient [...] of abdomen. 05/28/2017 Appointment: Ayesha Lyn WPtel: [id number] [place] (15 min) Moderate 05/28/2017 Patient Education: [...] stop smoking. 04/02/2017 Appointment: Ayesha Lyn [facility]Ptel[facility] [phone] [id number] (15 min) Moderate 04/02/2017 Patient Education: Patient [...] of over-medication. 03/04/2017 Appointment: Ayesha Lyn [facility]Ptel[facility] [phone] [id number] (15 min) Moderate 03/04/2017 Patient Education: Patient [...] I will send a note to the [facility] about the need to remove his driving privileges. 02/05/2017 Patient Education: Patient Medication Summary Completed 02/05/2017 Patient Education: Smoking and Tobacco Addiction Completed 02/05/2017 Patient Education: Obesity Completed 02/05/2017 Patient Education: Hypertension Completed 02/05/2017 Appointment: Ayesha Lyn [facility]Ptel[facility] [phone] [id number] [place] (15 min) Moderate 02/03/2017 Appointment[phone] [id number] [place] (30 min) Complex 01/06/2017 Appointment: [facility]un[facility] Betancourt [facility]el[phone] [id number] [place] (15 min) Moderate 01/01/2017 Visit Plan: Cough, shortness of breath - Pt was sent for outpatient chest x-ray and EKG - at the hospital he started feeling worse and went to the ER. 12/22/2016 Appointment: Ayesha Lyn [facility]Ptel[facility] [phone] [id number] [place] (15 min) Moderate 12/22/2016 Appointment: [id number] [place] (15 min) Moderate 12/22/2016 Patient Education: Patient Medication Summary Completed 12/22/2016 Patient Education: Smoking and Tobacco Addiction Completed 12/22/2016 Patient Education: Obesity Completed 12/22/2016 Appointment: Lab Draw 12/18/2016 Patient Education: Patient Medication Summary Completed 12/04/2016 Visit Plan: Liver failure, status post - TIPS blockage - called to Dr. Peres - he will do repeat liver ultrasound, paracentesis. Associate Director Financial Aid needs to be aware of the worsening symptoms this pt has been experiencing over the past 10 days. The radiologist reports that he called the sand wheeler at but never got to speak to [...] his lactulose. 09/08/2016 Appointment: Ayesha Lyn WPtel: [phone] [id number] [place] (15 min) Moderate 09/08/2016 Patient Education: [...] medication compliance. 08/19/2016 Appointment: Ayesha Lyn WPtel: [phone] [id number] [place] (15 min) Moderate 08/19/2016 Patient Education: Patient [...] confusion. 07/21/2016 Appointment: Ayesha Lyn WPtel: [phone] [facility] (15 min) Moderate 07/21/2016 Patient Education: Patient [...] was counseled about stopping smoking - but Cirilo states that he is not interested in stopping smoking. Abdominal pain - ruq - stable - no chagne in treatment - defer to physician. 04/22/2016 Appointment: Ayesha Lyn WPtel: [phone] [facility] [place] (15 min) Moderate 04/22/2016 Patient Education: Patient [...] not improve. 01/04/2016 Appointment: Lexus Black WPtel: [address] [place], [place] [id number] (30 min) [facility] 01/04/2016 Patient Education: Patient Medication Summary Completed [...] Hypertension Completed 10/23/2015 Appointment: Lexus Black WPtel: [phone] [phone] (15 min) Moderate 09/18/2015 Visit Plan: Diabetes [...] 2 weeks. 2015 Appointment: Ayesha Lyn [facility]Ptel[facility] [phone] [id number] (15 min) Moderate 2015 Patient Education: Patient [...] in trazodone. 05/15/2015 Appointment: Ayesha Lyn WPtel: [phone] [facility] (15 min) Moderate 05/15/2015 Patient Education: Patient Medication Summary Completed 05/15/2015 Appointment: Ayesha Lyn WPtel: [phone] [facility] (15 min) Moderate 05/09/2015 Visit Plan: Diabetes [...] C pt seeing specialist in [place] at [facility]. Umbilical hernia - surgery being planned. 03/22/2015 Appointment: Ayesha Lyn WPtel: [phone] [facility] Follow up 03/22/2015 Patient Education: Patient Medication Summary Completed 03/22/2015 Patient Education: Hypertension Completed 03/22/2015 Visit Plan: UTI-hospital follow up-symptoms resolved- monitor Lesion of [id number]-eumnthgncn, Dr Basilio, at suspects cancer- will follow [...] improve. Hepatitis C pt sees hepatology at [facility] . 12/20/2014 Appointment: Ayesha Lyn WPtel: [id number] [place] ([place] New Patient 12/20/2014 Patient Education: [...] on his last labs in May. . Diabetes Mellitus - controlled - per [...] . UTI-hospital follow up-symptoms resolved-monitor Lesion of uvrfj-cggjhpxwxp-nnfwiezwte, Dr Basilio, at suspects cancer-will follow up with Umbilical hernia-appt with Dr Murdock February 08 Chronic back pain-refill morphine-instructed patient and sisters to use as needed for pain and call if pain is uncontrolled get Mucinex DM and take this twice daily. . Hypertension - well controlled - continue with current medications, continue with no added salt diet. Pt has been encouraged to exercise daily. The pt has been advised to call the office if there are any acute concerns about change in blood pressure readings at home. DM - unsure of level of control as Cirilo does not check his FSBS at home. He is getting his shots routinely. Cough - Mucinex DM bid for cough. Chronic pain syndrome - refilled Morphine . Diabetes Mellitus - controlled - per [...] was counseled about stopping smoking - but Cirilo states that he is not interested in stopping smoking. Abdominal pain - ruq - stable - no chagne in treatment - defer to physician. . Diabetes Mellitus - controlled - per [...] C pt seeing specialist in [place] at [facility]. Umbilical hernia - surgery being planned. . [...] consequences of over-medication. refilled pain medication today. use the saline gel in your nose [...] he will do repeat liver ultrasound, paracentesis. Associate Director Financial Aid needs to be aware of the worsening symptoms this pt has been experiencing over the past 10 days. The radiologist reports that he called the sand wheeler at but never got to speak to [...] taking his lactulose. [facility] through [employer] . Hypertension - well controlled - continue [...] to patient. RTC in 2 weeks. . Diabetes Mellitus - controlled - per [...] improve. Hepatitis C pt sees hepatology at [facility] . . Diabetes Mellitus - controlled - [...] need to restart daily use of medication. TRY TO DRINK WATER - AT LEAST [...] will look into a powered scooter through [employer]. Cirilo could reliably run a powered scooter. I have recommended that if Medicare denies the purchase of a powered scooter through [employer] that they need to look at purchase [...] symptoms and in his diabetic control. However, Cirilo continues to live at home alone with his sisters visiting frequently, but they cannot control his dietary intake as they are not in the home 24 hours a day. Cirilo remains non-compliant with our recommendations and medical [...] will look into a powered scooter through [employer]. Cirilo could reliably run a powered scooter. I have recommended that if Medicare denies the purchase of a powered scooter through [employer] that they need to look at purchase [...] symptoms and in his diabetic control. However, Cirilo continues to live at home alone with his sisters visiting frequently, but they cannot control his dietary intake as they are not in the home 24 hours a day. Cirilo remains non-compliant with our recommendations and medical [...] levels and increased risk of confusion. . Hypertension - well controlled - continue [...] to stop smoking. . Diabetes Mellitus - Uncontrolled - per [...] I will send a note to the [facility] about the need to remove his driving privileges. . Cough, shortness of breath - Pt was sent for outpatient chest x-ray and EKG - at the hospital he started feeling worse and went to the ER.
[2018-07-14] MEDS ORDERED: VANCOMYCIN INJECTION 0.1 MG in NS (IVPB) 250 ML IV SCH (15:15)
[2018-07-14] MEDS ORDERED: ACETAMINOPHEN 500 MG TAB (TYLENOL) PO PRN (15:15)
--- OUTSIDE RECORDS SUMMARY | 2018-07-14 15:18 | XMS REPORT | CCD ---
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 Name Role Phone PP Unavailable CCM Unavailable Summary Purpose Interface Exchange Insurance Providers Payer name Policy type / Coverage type Covered alliance party ID Effective Begin Date Effective End Date WPS Medicare Part B Medicare Part B [id number] Unknown Unknown [employer] - Medicare Part B [id number] Unknown Unknown Family history Sister Diagnosis Age At Onset Cancer Unknown Father Diagnosis Age At Onset Stroke Unknown Coronary Artery Disease Unknown Social History Social History Element Codes Description Effective Dates Marital status Unknown 12/20/2014 Number of children Unknown 0 12/20/2014 Employment Unknown Retired 12/20/[address]: 53452284 Currently smokes tobacco 12/20/2014 Number of years using tobacco Unknown 40 - 50 12/20/2014 Number of cigarettes/day Unknown < 10 12/20/[address]: 813639 Currently drinks alcohol 12/20/2014 Allergies, Adverse Reactions, Alerts Allergies, Adverse Reactions, Alerts data not found Past Medical History Illness Codes Condition Status Onset Date Resolved Date Essential (primary) hypertension ICD-9: 401.1 ICD-10: I10 Active 07/29/2017 Unknown 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 Active 01/22/2015 Unknown Other specified diseases of liver ICD-9: 573.8 ICD-10: K76.89 Active 07/29/2017 Unknown Type 2 diabetes mellitus without complications ICD-9: 250.00 ICD-10: E11.9 Active 12/19/2014 Unknown Encounter for immunization ICD-9: V04.81 ICD-10: Z23 Active 04/21/2016 Unknown Essential (primary) hypertension ICD-9: 401.9 ICD-10: I10 Active 03/21/2015 Unknown Encounter for immunization ICD-9: V03.9 ICD-10: Z23 Active 04/02/2017 Unknown Epistaxis ICD-9: 784.7 ICD-10: R04.0 Active 10/22/2015 Unknown Tobacco use ICD-9: 305.1 ICD-10: Z72.0 Active 04/21/2016 Unknown Chronic pain syndrome ICD-9: 338.4 ICD-10: G89.4 Active 12/19/2014 Unknown Insomnia due to medical condition ICD-9: [...] ICD-9: 268.9 ICD-10: E55.9 Active 10/22/2015 Unknown Chronic obstructive pulmonary disease, unspecified ICD-9: 496 ICD-10: J44.9 Active 09/03/2015 Unknown Insomnia, unspecified ICD-9: 780.52 ICD-10: G47.00 [...] Problems Condition Codes Effective Dates Condition Status Essential (primary) hypertension ICD-9: 401.1 ICD-10: I10 07/29/2017 Active 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 01/22/2015 Active Other specified diseases of liver ICD-9: 573.8 ICD-10: K76.89 07/29/2017 Active Type 2 diabetes mellitus without complications ICD-9: 250.00 ICD-10: E11.9 12/19/2014 Active Encounter for immunization ICD-9: V04.81 ICD-10: Z23 04/21/2016 Active Essential (primary) hypertension ICD-9: 401.9 ICD-10: I10 03/21/2015 Active Encounter for immunization ICD-9: V03.9 ICD-10: Z23 04/02/2017 Active Epistaxis ICD-9: 784.7 ICD-10: R04.0 10/22/2015 Active Tobacco use ICD-9: 305.1 ICD-10: Z72.0 04/21/2016 Active Chronic pain syndrome ICD-9: 338.4 ICD-10: G89.4 12/19/2014 Active Insomnia due to medical condition ICD-9: [...] unspecified ICD-9: 268.9 ICD-10: E55.9 10/22/2015 Active Chronic obstructive pulmonary disease, unspecified ICD-9: 496 ICD-10: J44.9 09/03/2015 Active Insomnia, unspecified ICD-9: 780.52 ICD-10: G47.00 [...] Start Date Stop Date Status Fill Instructions potassium chloride ER 20 mEq tablet,extended release RxNorm: 684567 1 Tablet(s) BID 08/28/2017 08/22/2018 Active Exelon Patch 4.6 mg/24 hr transdermal RxNorm: 411995 1 TD daily 08/28/2017 08/22/2018 Active trazodone 50 mg tablet RxNorm: 187788 1 Tablet(s) PO QPM as needed insomnia TAKE 1 TABLET BY MOUTH ONCE DAILY NEEDED 08/28/2017 08/22/2018 Active Generic For: DESYREL 50 MG TABLET 11/12/2016 9:00:24 AM Remeron 15 mg tablet RxNorm: 414495 1 Tablet(s) PO QPM TAKE 1 TABLET BY MOUTH EVERY NIGHT AT BEDTIME 08/28/20172018 Active Generic For:REMERON 15MG 11/12 9:00:28 AM Protonix 20 mg tablet,delayed release RxNorm: 714053 1 Tablet(s) PO daily 08/28/2017 08/22/2018 Active Pristiq 50 mg tablet,extended release RxNorm: 041058 1 Tablet(s) PO daily 08/28/2017 08/22/2018 Active 10/13/2016 9:27:26 AM Ventolin HFA 90 mcg/actuation aerosol inhaler RxNorm: 482219 2 INHALE 2 PUFFS BY MOUTH FOUR TIMES DAILY NEEDED 07/29/2017 02/23/2018 Active morphine ER 15 mg tablet,extended release RxNorm: 527803 1 Tablet(s) PO TID as needed 07/29/2017 08/27/2017 Inactive Ventolin HFA 90 mcg/actuation aerosol inhaler RxNorm: 579437 INHALE 2 PUFFS BY MOUTH FOUR TIMES DAILY NEEDED 07/10/2017 07/28/2017 Inactive Phenergan-Codeine 6.25 mg-10 mg/5 mL syrup RxNorm: 002984 5 Milliliter(s) PO Q6 as needed cough 07/10/2017 07/23/2017 Inactive albuterol sulfate 90 mcg/actuation breath activated powder inhaler RxNorm: 6846373 2 Puff(s) INH QID as needed dyspnea 06/02/2017 12/27/2017 Active morphine ER 15 mg tablet,extended release RxNorm: 265298 1 Tablet(s) PO TID as needed 06/02/2017 07/01/2017 Inactive albuterol sulfate 90 mcg/actuation breath activated powder inhaler RxNorm: 3581504 2 Puff(s) INH QID as needed dyspnea 05/28/2017 06/01/2017 Inactive Bydureon 2 mg/0.65 mL subcutaneous pen injector RxNorm: 5336534 2 Milligram(s) SQ QW 04/02/2017 08/29/2017 Active please give needles 31guage needles - deliver to filiberto at her work please lactulose 20 gram/30 mL oral solution RxNorm: 748530 2 Tablespoon(s) PO QID 03/05/2017 No Stop Date Active furosemide 20 mg tablet RxNorm: 300736 1 Tablet(s) PO daily 09/30/2017 Active Xifaxan 550 mg tablet RxNorm: 199097 2 Tablet(s) PO BID 201609/02/2017 Active lactulose 10 gram/15 mL oral solution RxNorm: 011252 30 Milliliter(s) PO BID 02/05/2017 No Stop Date Active potassium chloride ER 20 mEq tablet,extended release RxNorm: 841155 1 Tablet(s) BID 02/05/2017 08/27/2017 Inactive Remeron 15 mg tablet RxNorm: 119381 1 Tablet(s) PO QPM TAKE 1 TABLET BY MOUTH EVERY NIGHT AT BEDTIME 02/05/20172017 Inactive Generic For:REMERON 15MG 9:00:28 AM Protonix 20 mg tablet,delayed release RxNorm: 233774 1 Tablet(s) PO daily 02/05/2017 08/27/2017 Inactive trazodone 50 mg tablet RxNorm: 038280 1 Tablet(s) PO QPM as needed insomnia TAKE 1 TABLET BY MOUTH ONCE DAILY NEEDED 02/05/2017 08/27/2017 Inactive Generic For: DESYREL 50 MG TABLET 11/12/2016 9:00:24 AM morphine ER 15 mg tablet,extended release RxNorm: 803858 1 Tablet(s) PO TID as needed 02/05/2017 03/06/2017 Inactive Lantus Solostar 100 unit/mL (3 mL) subcutaneous insulin pen RxNorm: 126545 15 Unit(s) SQ daily 02/05/2017 04/01/2017 Inactive Pristiq 50 mg tablet,extended release RxNorm: 264497 1 Tablet(s) PO daily 02/05/2017 08/27/2017 Inactive 10/13/2016 9:27:26 AM Exelon Patch 4.6 mg/24 hr transdermal RxNorm: 494142 1 TD daily 02/05/2017 08/27/2017 Inactive furosemide 20 mg tablet RxNorm: 773741 1 Tablet(s) PO daily 03/04/2017 Inactive Vitamin D3 1,000 unit tablet RxNorm: 244290 2 Tablet(s) PO QHS 01/22/2017 No Stop Date Active furosemide 20 mg tablet RxNorm: 186531 Tablet(s) PO 01/22/2017 02/04/2017 Inactive Xifaxan 550 mg tablet RxNorm: 684093 2 Tablet(s) PO BID 201602/04/2017 Inactive potassium chloride ER 20 mEq tablet,extended release RxNorm: 138875 2 Tablet(s) BID 1 Tablet(s) PO daily 01/22/20172016 Inactive Lasix 40 mg tablet RxNorm: 132087 TAKE ONE TABLET BY MOUTH IN THE MORNING AND ONE-HALF TABLET IN THE AFTERNOON 12/25/2016 01/21/2017 Inactive Ativan 1 mg tablet RxNorm: 319843 1 Tablet(s) PO Q6 as needed anxiety 12/25/2016 01/21/2017 Inactive lactulose 10 gram/15 mL oral solution RxNorm: 247007 15 Milliliter(s) PO BID 12/25/2016 02/04/2017 Inactive lactulose 20 gram/30 mL oral solution RxNorm: 276182 2 Tablespoon(s) PO QID 12/24/2016 12/24/2016 Inactive nicotine 7 mg/24 hr daily transdermal patch RxNorm: 743339 1 Patch TD daily Put on in the morning and take off at night 12/24/2016 01/21/2017 Inactive cefdinir 300 mg capsule RxNorm: 153976 1 Capsule(s) PO BID 12/31/2016 Inactive Zithromax 250 mg tablet RxNorm: 379717 1 Tablet(s) PO daily 12/26/2016 Inactive prednisone 20 mg tablet RxNorm: 042707 2 Tablet(s) PO QAM 12/2212/24/2016 Inactive Ventolin HFA 90 mcg/actuation aerosol inhaler RxNorm: 710145 2 inhale NASAL QID as needed INHALE 2 PUFFS BY MOUTH FOUR TIMES DAILY NEEDED 12/12/2016 07/09/2017 Inactive 04/07/2016 1:44:46 PM spironolactone 50 mg tablet RxNorm: 435070 TAKE 1 TABLET BY MOUTH ONCE DAILY 11/14/2016 11/08/2017 Active Generic For:ALDACTONE 50MG 11/12/2016 9:00:19 AM trazodone 50 mg tablet RxNorm: 159263 TAKE 1 TABLET BY MOUTH ONCE DAILY NEEDED 11/12/2016 02/04/2017 Inactive Generic For:DESYREL 50 MG TABLET 11/12/2016 9:00: 24 AM Remeron 15 mg tablet RxNorm: 981714 TAKE 1 TABLET BY MOUTH EVERY NIGHT AT BEDTIME 11/12/2016 01/10/2017 Inactive Generic For:REMERON 15MG 11/12/2016 9:00:28 AM morphine ER 15 mg tablet,extended release RxNorm: 370571 1 Tablet(s) PO TID 10/22/2016 11/20/2016 Inactive Lasix 40 mg tablet RxNorm: 434340 TAKE ONE TABLET BY MOUTH DAILY 10/13/2016 12/24/2016 Inactive Generic For:LASIX 40MG 10/13/2016 9:27:30 AM Pristiq 50 mg tablet,extended release RxNorm: 499315 TAKE 1 TABLET BY MOUTH ONCE DAILY 10/13/2016 02/04/2017 Inactive 10/13/2016 9:27:26 AM nicotine 7 mg/24 hr daily transdermal patch RxNorm: 984836 1 Patch TD daily Put on in the morning and take off at night 10/03/2016 10/23/2016 Inactive nicotine 7 mg/24 hr daily transdermal patch RxNorm: 787279 1 Patch TD daily Put on in the morning and take off at night 09/23/2016 10/02/2016 Inactive nicotine 7 mg/24 hr daily transdermal patch RxNorm: 603843 1 Patch TD daily Put on in the morning and take off at night 09/18/2016 09/22/2016 Inactive glimepiride 4 mg tablet RxNorm: 715113 TAKE TWO TABLETS BY MOUTH DAILY IN THE MORNING 09/15/2016 01/21/2017 Inactive Generic For:*AMARYL 4MG 09/13/2016 9:08:43 AM Remeron 15 mg tablet RxNorm: 388141 1 Tablet(s) PO QHS 201611/11/2016 Inactive deliver to patient's sister FILIBERTO nicotine 7 mg/24 hr daily transdermal patch RxNorm: 906457 1 Patch TD daily Put on in the morning and take off at night 08/22/2016 08/28/2016 Inactive nicotine 14 mg/24 hr daily transdermal patch RxNorm: 473964 1 Patch TD daily x1 week -Put on in the morning and take off at night, then decrease to 7 mg patches x 1 week 08/22/2016 08/28/2016 Inactive nicotine 7 mg/24 hr daily transdermal patch RxNorm: 234436 1 Patch TD daily Put on in the morning and take off at night 08/21/2016 08/21/2016 Inactive nicotine 7 mg/24 hr daily transdermal patch RxNorm: 742910 1 Patch TD daily Put on in the morning and take off at night 08/21/2016 08/20/2016 Inactive nicotine 14 mg/24 hr daily transdermal patch RxNorm: 237726 1 Patch TD daily -Put on in the morning and take off at night, then decrease to 7 mg patches x 1 week 08/21/2016 08/20/2016 Inactive nicotine 14 mg/24 hr daily transdermal patch RxNorm: 240920 1 Patch TD daily x1 week -Put on in the morning and take off at night, then decrease to 7 mg patches x 1 week 08/21/2016 08/21/2016 Inactive potassium chloride ER 20 mEq tablet,extended release RxNorm: 520211 Tablet(s) 1 Tablet(s) PO daily 08/14/2016 01/21/2017 Inactive Remeron 15 mg tablet RxNorm: 953794 1 Tablet(s) PO QHS 201509/14/2016 Inactive deliver to patient's sister FILIBERTO omeprazole 20 mg capsule,delayed release RxNorm: 510650 TAKE 1 CAPSULE BY MOUTH TWICE DAILY 07/15/2016 01/21/2017 Inactive Generic For:PRILOSEC 20MG 07/15/2016 8: 59:16 AM trazodone 50 mg tablet RxNorm: 376730 Tablet(s) Tablet(s) TAKE ONE TABLET BY MOUTH DAILY NEEDED 07/15/20162016 Inactive Pristiq 50 mg tablet,extended release RxNorm: 350509 TAKE 1 TABLET BY MOUTH ONCE DAILY 06/16/2016 10/12/2016 Inactive 06/16/2016 9:02:33 AM Lasix 40 mg tablet RxNorm: TAKE ONE TABLET BY MOUTH DAILY 06/16/2016 10/12/2016 Inactive Generic For:LASIX 40MG 06/16/2016 9:02:29 AM Ventolin HFA 90 mcg/actuation aerosol inhaler RxNorm: 666655 2 inhale NASAL QID as needed INHALE 2 PUFFS BY MOUTH FOUR TIMES DAILY NEEDED 04/22/2016 11/17/2016 Inactive 04/07/2016 1:44:46 PM mupirocin 2 % topical ointment RxNorm: 658610 1 Application TOP BID 04/22/2016 05/01/2016 Inactive apply in nose twice daily Ventolin HFA 90 mcg/actuation aerosol inhaler RxNorm: 386835 INHALE 2 PUFFS BY MOUTH FOUR TIMES DAILY NEEDED 04/07/2016 04/21/2016 Inactive 04/07/2016 1:44:46 PM trazodone 50 mg tablet RxNorm: 986829 Tablet(s) Tablet(s) TAKE ONE TABLET BY MOUTH DAILY NEEDED 03/18/20162015 Inactive potassium chloride ER 20 mEq tablet,extended release RxNorm: 738070 1 Tablet(s) PO daily 03/17/2016 08/13/2016 Inactive Pristiq 50 mg tablet,extended release RxNorm: 886198 1 Tablet(s) PO daily 02/18/2016 06/15/2016 Inactive Lasix 40 mg tablet RxNorm: 664052 TAKE ONE TABLET BY MOUTH DAILY 02/18/2016 06/15/2016 Inactive Generic For:LASIX 40MG 02/16/2016 9:03:51 AM glimepiride 4 mg tablet RxNorm: 631859 TAKE TWO TABLETS BY MOUTH DAILY IN THE MORNING 02/18/2016 09/14/2016 Inactive Generic For:*AMARYL 4MG 02/16/2016 9:03:44 AM Ventolin HFA 90 mcg/actuation aerosol inhaler RxNorm: 106595 INHALE 2 PUFFS BY MOUTH FOUR TIMES DAILY NEEDED 02/18/2016 04/06/2016 Inactive 02/16/2016 9:04:47 AM trazodone 50 mg tablet RxNorm: 999289 Tablet(s) TAKE ONE TABLET BY MOUTH DAILY NEEDED 01/17/2016 03/16/2016 Inactive Generic For:DESYREL 50 MG TABLET 08/17/2015 9:45:00 AM ciprofloxacin 500 mg tablet RxNorm: 195322 1 Tablet(s) PO BID 01/04/2016 01/10/2016 Inactive Ventolin HFA 90 mcg/actuation aerosol inhaler RxNorm: 209780 INHALE 2 PUFFS BY MOUTH FOUR TIMES DAILY NEEDED 01/02/2016 02/17/2016 Inactive 01/02/2016 1:45:42 PM omeprazole 20 mg capsule,delayed release RxNorm: 283070 TAKE 1 CAPSULE BY MOUTH TWICE DAILY 12/18/2015 07/14/2016 Inactive Generic For:PRILOSEC 20MG 12/18/2015 10 :05:45 AM Ventolin HFA 90 mcg/actuation aerosol inhaler RxNorm: 201568 2 INH QID as needed 11/19/2015 01/01/2016 Inactive dc PROAIR trazodone 100 mg tablet RxNorm: 698962 1 Tablet(s) PO QHS 11/1512/15/2015 Inactive spironolactone 50 mg tablet RxNorm: 551578 TAKE 1 TABLET BY MOUTH ONCE DAILY 10/24/2015 10/17/2016 Inactive Generic For:ALDACTONE 50MG 10/23/2015 11:26:43 AM mupirocin 2 % topical ointment RxNorm: 223246 1 Application TOP QID 10/23/2015 10/29/2015 Inactive Lasix 40 mg tablet RxNorm: 814058 TAKE ONE TABLET BY MOUTH DAILY 10/22/2015 02/17/2016 Inactive Generic For:LASIX 40MG 10/22/2015 4:29:14 PM10/19/2015 9:43:00 AM Pristiq 50 mg tablet,extended release RxNorm: 322628 1 Tablet(s) PO daily 10/19/2015 02/15/2016 Inactive potassium chloride ER 20 mEq tablet,extended release RxNorm: 935335 1 Tablet(s) PO daily 10/19/2015 03/16/2016 Inactive trazodone 50 mg tablet RxNorm: 897854 Tablet(s) TAKE ONE TABLET BY MOUTH DAILY NEEDED 10/19/2015 12/17/2015 Inactive Generic For:DESYREL 50 MG TABLET 08/17/2015 9:45:00 AM Ventolin HFA 90 mcg/actuation aerosol inhaler RxNorm: 415392 2 INH QID as needed 10/08/2015 11/18/2015 Inactive dc PROAIR prednisone 20 mg tablet RxNorm: 306553 3 Tablet(s) PO QAM 09/0509/07/2015 Inactive trazodone 50 mg tablet RxNorm: 603286 TAKE ONE TABLET BY MOUTH DAILY NEEDED 08/17/2015 10/15/2015 Inactive Generic For:DESYREL 50 MG TABLET 08/17/2015 9:45: 00 AM morphine ER 15 mg tablet,extended release RxNorm: 171582 1 Tablet(s) PO TID 08/07/2015 09/05/2015 Inactive glimepiride 4 mg tablet RxNorm: 269550 TAKE TWO TABLETS BY MOUTH DAILY IN THE MORNING 07/23/2015 02/17/2016 Inactive Generic For:*AMARYL 4MG 07/23/2015 10:52: 06 AM potassium chloride ER 20 mEq tablet,extended release RxNorm: 174149 1 Tablet(s) PO daily 06/29/2015 06/28/2015 Inactive potassium chloride ER 20 mEq tablet,extended release RxNorm: 334918 1 Tablet(s) PO daily 06/29/2015 10/18/2015 Inactive Lasix 40 mg tablet RxNorm: 513685 1 Tablet(s) PO daily 201410/21/2015 Inactive trazodone 50 mg tablet RxNorm: 655912 1 Tablet(s) PO daily as needed 06/22/2015 06/21/2015 Inactive Pristiq 50 mg tablet,extended release RxNorm: 395080 1 Tablet(s) PO daily 06/22/2015 10/18/2015 Inactive trazodone 50 mg tablet RxNorm: 709529 1 Tablet(s) PO daily as needed 06/22/2015 08/16/2015 Inactive ProAir HFA 90 mcg/actuation aerosol inhaler RxNorm: 5890601 2 Puff(s) INH QID as needed dyspnea 06/12/2015 10/07/2015 Inactive omeprazole 20 mg capsule,delayed release RxNorm: 229187 1 Capsule(s) PO BID 05/31/2015 12/17/2015 Inactive DC protonix pantoprazole 40 mg tablet,delayed release RxNorm: 388016 1 Tablet(s) PO daily 05/25/2015 05/30/2015 Inactive Pristiq 50 mg tablet,extended release RxNorm: 784783 1 Tablet(s) PO daily 03/23/2015 06/20/2015 Inactive Lasix 40 mg tablet RxNorm: 045424 1 Tablet(s) PO daily 201405/14/2015 Inactive morphine ER 15 mg tablet,extended release RxNorm: 741041 1 Tablet(s) PO TID 03/06/2015 04/04/2015 Inactive Klor-Con M20 mEq tablet,extended release RxNorm: 7153512 1 Tablet(s) PO daily 02/22/2015 05/14/2015 Inactive ProAir HFA 90 mcg/actuation aerosol inhaler RxNorm: 6546540 2 Puff(s) INH QID as needed dyspnea 02/15/2015 06/11/2015 Inactive albuterol sulfate 90 mcg/actuation breath activated powder inhaler RxNorm: 9784453 2 Puff(s) INH QID as needed dyspnea 02/15/2015 09/10/2015 Inactive ProAir HFA 90 mcg/actuation aerosol inhaler RxNorm: 1014454 2 Puff(s) INH QID as needed dyspnea 02/15/2015 02/14/2015 Inactive morphine ER 15 mg tablet,extended release RxNorm: 178227 1 Tablet(s) PO TID 01/25/2015 02/23/2015 Inactive morphine 15 mg capsule RxNorm: 256381 1 Capsule(s) PO TID 01/2301/24/2015 Inactive morphine 15 mg capsule RxNorm: 222996 1 Capsule(s) PO TID 01/0901/22/2015 Inactive omeprazole 40 mg capsule,delayed release RxNorm: 796893 1 Capsule(s) PO daily 12/28/2014 12/27/2014 Inactive DC protonix omeprazole 40 mg capsule,delayed release RxNorm: 864794 1 Capsule(s) PO daily 12/28/2014 05/30/2015 Inactive DC protonix glimepiride 4 mg tablet RxNorm: 157512 2 Tablet(s) PO QAM 12/2707/22/2015 Inactive nicotine 21 mg/24 hr daily transdermal patch RxNorm: 114892 1 Patch PO daily 12/26/2014 01/22/2015 Inactive morphine 15 mg capsule RxNorm: 743961 1 Capsule(s) PO TID 12/2001/08/2015 Inactive Pristiq 50 mg tablet,extended release RxNorm: 514906 1 Tablet(s) PO daily 12/20/2014 01/18/2015 Inactive pantoprazole 40 mg tablet,delayed release RxNorm: 286081 1 Tablet(s) PO daily 12/20/2014 12/27/2014 Inactive ipratropium-albuterol 0.5 mg-3 mg(2.5 mg base)/3 mL nebulization soln RxNorm: 9585492 1 INH q2H prn No Start Date Active magnesium oxide 400 mg tablet RxNorm: 962159 1 Tablet(s) PO daily No Start Date Active melatonin 3 mg tablet RxNorm: 920385 1 Tablet(s) PO daily No Start Date Active Novolin R 100 unit/mL injection solution RxNorm: 918787 ssi: 4u 150-200, 7z185-425 , 8u 251-300, 10u 301-350, 12u 351 Unit(s) Inj No Start Date Active 12u 351-400 over 351 give 12 and call glimepiride 4 mg tablet RxNorm: 523345 2 Tablet(s) PO QAM No Start Date 12/26/2014 Inactive Exelon Patch 4.6 mg/24 hr transdermal RxNorm: 624477 1 TD daily No Start Date 02/04/2017 Inactive spironolactone 50 mg tablet RxNorm: 122804 1 Tablet(s) PO daily No Start Date 05/14/2015 Inactive Lasix 40 mg tablet RxNorm: 678300 1 Tablet(s) PO daily No Start Date 03/22/2015 Inactive Protonix 20 mg tablet,delayed release RxNorm: 980454 1 Tablet(s) PO daily No Start Date 02/04/2017 Inactive Ventolin HFA 90 mcg/actuation aerosol inhaler RxNorm: 867048 2 INH QID as needed No Start Date 10/07/2015 Inactive dc PROAIR lactulose 20 gram/30 mL oral solution RxNorm: 729411 2 Tablespoon(s) PO QID No Start Date 12/23/2016 Inactive Xifaxan 550 mg tablet RxNorm: 555680 2 Tablet(s) PO daily No Start Date 01/21/2017 Inactive Klor-Con M20 mEq tablet,extended release RxNorm: 006185 1 Tablet(s) PO daily No Start Date 02/21/2015 Inactive Vitamin D3 1,000 unit tablet RxNorm: 298025 1 Tablet(s) PO TID No Start Date 01/21/2017 Inactive Trazadone Oral RxNorm : oral No Start Date 03/18/2016 Inactive Levemir 100 unit/mL subcutaneous solution RxNorm: 006152 10 Unit(s) SQ daily No Start Date [...] 07/10/2008 completed Assessments Condition Codes Effective Dates 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 ICD-9: 239.0 07/29/2017 Essential (primary) hypertension ICD-10: I10 ICD-9: 401.1 07/29/2017 Type 2 diabetes mellitus without complications ICD-10: E11.9 ICD-9: 250.00 07/29/2017 Other specified diseases of liver ICD-10: K76.89 ICD-9: 573.8 07/29/2017 Essential (primary) hypertension ICD-10: I10 ICD-9: 401.9 05/28/2017 Encounter for immunization ICD-10: Z23 ICD-9: V04.81 05/28/2017 Epistaxis ICD-10: R04.0 ICD-9: 784.7 04/02/2017 Encounter for immunization ICD-10: Z23 ICD-9: V03.9 04/02/2017 Tobacco use ICD-10: Z72.0 ICD-9: 305.1 04/02/2017 Chronic pain syndrome ICD-10: G89.4 ICD-9: 338.4 03/04/2017 Insomnia due to medical condition ICD-10: G47.01 [...] deficiency, unspecified ICD-10: E55.9 ICD-9: 268.9 10/23/2015 Chronic obstructive pulmonary disease, unspecified ICD-10: J44.9 ICD-9: 496 2015 Insomnia, unspecified ICD-10: G47.00 ICD-9: 780.52 05/15/2015 [...] For Visit Effective Dates Notes diabetes mellitus 07/29/2017 diabetes mellitus 05/28/2017 diabetes [...] Code Item Item Code Result Date %Hba1C Klu625 % HbA1c 87264-9 9.0 % 07/29/2017 %Hba1C Lmj156 Gluc Ave 212 mg/dL 07/29/2017 Comp Metabolic Pys269 NA 136 mEq/L 07/29/2017 Comp Metabolic Tgn028 K 3.7 mEq/L 07/29/2017 Comp Metabolic Imu889 CL 102 mEq/L 07/29/2017 Comp Metabolic Pdo139 CO2 27.0 mEq/L 07/29/2017 Comp Metabolic Dxh257 ANION GAP 11 07/29/2017 Comp Metabolic Kaa378 GLUCOSE 386 mg/dL 07/29/2017 Comp Metabolic Wsp632 Creat 0.6 mg/dL 07/29/2017 Comp Metabolic Zzw134 eGFR 142 ml/min/1.73m2 07/29/2017 Comp Metabolic Jap050 BUN 10 mg/dL 07/29/2017 Comp Metabolic Kil876 B/C Ratio 16.4 Ratio 07/29/2017 Comp Metabolic Bvf077 CALCIUM 8.1 mg/dL 07/29/2017 Comp Metabolic Yii477 ALK PHOS 147 U/L 07/29/2017 Comp Metabolic Taj473 AST(SGOT) 41 U/L 07/29/2017 Comp Metabolic Bkd089 ALT(SGPT) 24 U/L 07/29/2017 Comp Metabolic Hum772 BILI T 1.7 mg/dL 07/29/2017 Comp Metabolic Nbn597 ALBUMIN 2.8 g/dL 07/29/2017 Comp Metabolic Tdg932 TPRO 5.7 g/dL 07/29/2017 Comp Metabolic Faf375 GLOB 2.9 g/dL 07/29/2017 Comp Metabolic Bta269 A/G Ratio 0.9 Ratio 07/29/2017 Comp Metabolic Txo189 Osmo 287 mOsmo 07/29/2017 Comp Metabolic Fnb282 NA 138 mEq/L 12/09/2016 Comp Metabolic Bcs198 K 3.7 mEq/L 12/09/2016 Comp Metabolic Sgb425 CL 105 mEq/L 12/09/2016 Comp Metabolic Ptl077 CO2 28.0 mEq/L 12/09/2016 Comp Metabolic Pvg849 ANION GAP 9 12/09/2016 Comp Metabolic Xro876 GLUCOSE 220 mg/dL 12/09/2016 Comp Metabolic Fnd615 Creat 0.5 mg/dL 12/09/2016 Comp Metabolic Yvm190 eGFR 164 ml/min/1.73m2 12/09/2016 Comp Metabolic Pzq356 BUN 12 mg/dL 12/09/2016 Comp Metabolic Waf339 B/C Ratio 22.2 Ratio 12/09/2016 Comp Metabolic Qai203 CALCIUM 7.9 mg/dL 12/09/2016 Comp Metabolic Rpj124 ALK PHOS 85 U/L 12/09/2016 Comp Metabolic Osm606 AST(SGOT) 26 U/L 12/09/2016 Comp Metabolic Ofg051 ALT(SGPT) 12 U/L 12/09/2016 Comp Metabolic Lqa337 BILI T 1.6 mg/dL 12/09/2016 Comp Metabolic Rdw058 ALBUMIN 2.9 g/dL 12/09/2016 Comp Metabolic Fae047 TPRO 5.8 g/dL 12/09/2016 Comp Metabolic Uwx834 GLOB 2.9 g/dL 12/09/2016 Comp Metabolic Hdq397 A/G Ratio 1.0 Ratio 12/09/2016 Comp Metabolic Pfb763 Osmo 282 mOsmo 12/09/2016 Metabolic Ord15 NA [...] Ord15 CALCIUM 8.3 mg/dL 10/20/2016 Comp Metabolic Pej421 NA 137 mEq/L 07/31/2016 Comp Metabolic Mzr079 K 3.7 mEq/L 07/31/2016 Comp Metabolic Qjr855 CL 105 mEq/L 07/31/2016 Comp Metabolic Zuf838 CO2 24.0 mEq/L 07/31/2016 Comp Metabolic Jno373 ANION GAP 12 07/31/2016 Comp Metabolic Mzh564 GLUCOSE 205 mg/dL 07/31/2016 Comp Metabolic Hop671 Creat 0.7 mg/dL 07/31/2016 Comp Metabolic Eax554 eGFR 132 ml/min/1.73m2 07/31/2016 Comp Metabolic Agm599 BUN 12 mg/dL 07/31/2016 Comp Metabolic Lds143 B/C Ratio 18.5 Ratio 07/31/2016 Comp Metabolic Yyv116 CALCIUM 8.4 mg/dL 07/31/2016 Comp Metabolic Iyu275 ALK PHOS 90 U/L 07/31/2016 Comp Metabolic Nzl844 AST(SGOT) 34 U/L 07/31/2016 Comp Metabolic Six125 ALT(SGPT) 22 U/L 07/31/2016 Comp Metabolic Ihb996 BILI T 2.2 mg/dL 07/31/2016 Comp Metabolic Ruk311 ALBUMIN 3.3 g/dL 07/31/2016 Comp Metabolic Fue192 TPRO 6.8 g/dL 07/31/2016 Comp Metabolic Yum269 GLOB 3.5 g/dL 07/31/2016 Comp Metabolic Qsc668 A/G Ratio 0.9 Ratio 07/31/2016 Comp Metabolic Csr535 Osmo 279 mOsmo 07/31/2016 Cbc With Differential [...] 31.4 pg 07/31/2016 Cbc With Differential Ord2 Davidson% 10.5 % 07/31/2016 Cbc With Differential Ord2 [...] 0.91 K/ul 07/31/2016 Cbc With Differential Ord2 Davidson ABS# 0.6 K/ul 07/31/2016 Cbc With Differential Ord2 Eos ABS# 0.2 K/ul 07/31/2016 Cbc With Differential Ord2 Baso ABS# 0.0 K/ul 07/31/2016 %Hba1C Vyq044 % HbA1c 49044-3 5.6 % 07/31/2016 %Hba1C Vvo438 Gluc Ave 114 mg/dL 07/31/2016 Lipid Ord30 [...] 32.4 pg 05/21/2016 Cbc With Differential Ord2 Davidson% 10.6 % 05/21/2016 Cbc With Differential Ord2 [...] 0.78 K/ul 05/21/2016 Cbc With Differential Ord2 Davidson ABS# 0.5 K/ul 05/21/2016 Cbc With Differential Ord2 Eos ABS# 0.1 K/ul 05/21/2016 Cbc With Differential Ord2 Baso ABS# 0.0 K/ul 05/21/2016 Pt [id number] PT 16.4 seconds 05/21/2016 Pt Fgw8616 INR 1.4 05/21/2016 Pt [id number] Low Intensity - 1.5-2.0 05/21/2016 Pt Ayg6147 Mod intensity - 2.0-3.0 05/21/2016 Pt Jkp5274 Hi intensity - 3.0-4.0 05/21/2016 Comp Metabolic Ohc690 NA 136 mEq/L 05/21/2016 Comp Metabolic Zli086 K 3.4 mEq/L 05/21/2016 Comp Metabolic Syd895 CL 102 mEq/L 05/21/2016 Comp Metabolic Kiv408 CO2 28.0 mEq/L 05/21/2016 Comp Metabolic Uds321 ANION GAP 9 05/21/2016 Comp Metabolic Dhh459 GLUCOSE 164 mg/dL 05/21/2016 Comp Metabolic Caw016 Creat 0.5 mg/dL 05/21/2016 Comp Metabolic Ipp164 eGFR 175 ml/min/1.73m2 05/21/2016 Comp Metabolic Viw772 BUN 8 mg/dL 05/21/2016 Comp Metabolic Avq559 B/C Ratio 15.7 Ratio 05/21/2016 Comp Metabolic Xer309 CALCIUM 8.1 mg/dL 05/21/2016 Comp Metabolic Mzj720 ALK PHOS 77 U/L 05/21/2016 Comp Metabolic Ldp996 AST(SGOT) 62 U/L 05/21/2016 Comp Metabolic Ysy196 ALT(SGPT) 83 U/L 05/21/2016 Comp Metabolic Mzv942 BILI T 2.3 mg/dL 05/21/2016 Comp Metabolic Gub971 ALBUMIN 2.9 g/dL 05/21/2016 Comp Metabolic Hzo451 TPRO 5.9 g/dL 05/21/2016 Comp Metabolic Vkp335 GLOB 3.0 g/dL 05/21/2016 Comp Metabolic Xwv719 A/G Ratio 1.0 Ratio 05/21/2016 Comp Metabolic Zmc490 Osmo 274 mOsmo 05/21/2016 Afp Serum Tumor Marker 222851 ALPHA- FETOPROTEIN TM 1.8 ng/mL 04/29/2016 Cbc With Differential Ord2 WBC 3.46 K/ul 04/28/2016 Cbc With Differential Ord2 RBC 4.09 M/ul 04/28/2016 Cbc With Differential Ord2 HGB 13.4 g/dl 04/28/2016 Cbc With Differential Ord2 HCT 37.7 % 04/28/2016 Cbc With Differential Ord2 Neut% 67.4 % 04/28/2016 Cbc With Differential Ord2 MCV 92.2 fl 04/28/2016 Cbc With Differential Ord2 Lymph% 14.7 % 04/28/2016 Cbc With Differential Ord2 MCH 32.8 pg 04/28/2016 Cbc With Differential Ord2 Davidson% 13.3 % 04/28/2016 Cbc With Differential Ord2 Eos% 4.3 % 04/28/2016 Cbc With Differential Ord2 MCHC 35.5 pg 04/28/2016 Cbc With Differential Ord2 Baso% 0.3 % 04/28/2016 Cbc With Differential Ord2 PLT 45 K/ul 04/28/2016 Cbc With Differential Ord2 RDW 15.6 % 04/28/2016 Cbc With Differential Ord2 Neut ABS# 2.33 K/ul 04/28/2016 Cbc With Differential Ord2 Lymph ABS# 0.51 K/ul 04/28/2016 Cbc With Differential Ord2 Davidson ABS# 0.5 K/ul 04/28/2016 Cbc With Differential Ord2 Eos ABS# 0.2 K/ul 04/28/2016 Cbc With Differential Ord2 Baso ABS# 0.0 K/ul 04/28/2016 Pt [id number] PT 15.6 seconds 04/28/2016 Pt Nde4949 INR 1.3 04/28/2016 Pt Zwt4413 Low Intensity - 1.5-2.0 04/28/2016 Pt Lec7215 Mod intensity - 2.0-3.0 04/28/2016 Pt Evq6336 Hi intensity - 3.0-4.0 04/28/2016 Comp Metabolic Ywv444 NA 136 mEq/L 04/28/2016 Comp Metabolic Zsv714 K 3.8 mEq/L 04/28/2016 Comp Metabolic Jii393 CL 102 mEq/L 04/28/2016 Comp Metabolic Pyk224 CO2 29.0 mEq/L 04/28/2016 Comp Metabolic Enw729 ANION GAP 9 04/28/2016 Comp Metabolic Srb659 GLUCOSE 153 mg/dL 04/28/2016 Comp Metabolic Xkn010 Creat 0.6 mg/dL 04/28/2016 Comp Metabolic Eja935 eGFR 143 ml/min/1.73m2 04/28/2016 Comp Metabolic Fpn332 BUN 7 mg/dL 04/28/2016 Comp Metabolic Bqy064 B/C Ratio 11.5 Ratio 04/28/2016 Comp Metabolic Xky554 CALCIUM 8.4 mg/dL 04/28/2016 Comp Metabolic Iao648 ALK PHOS 119 U/L 04/28/2016 Comp Metabolic Bdw813 AST(SGOT) 42 U/L 04/28/2016 Comp Metabolic Wzj234 ALT(SGPT) 24 U/L 04/28/2016 Comp Metabolic Hlv541 BILI T 1.9 mg/dL 04/28/2016 Comp Metabolic Qcm006 ALBUMIN 3.1 g/dL 04/28/2016 Comp Metabolic Oru396 TPRO 6.4 g/dL 04/28/2016 Comp Metabolic Eqr901 GLOB 3.4 g/dL 04/28/2016 Comp Metabolic Ikb028 A/G Ratio 0.9 Ratio 04/28/2016 Comp Metabolic Stn372 Osmo 273 mOsmo 04/28/2016 Cbc With Differential [...] 32.2 pg 01/22/2016 Cbc With Differential Ord2 Davidson% 19.3 % 01/22/2016 Cbc With Differential Ord2 [...] 0.63 K/ul 01/22/2016 Cbc With Differential Ord2 Davidson ABS# 0.9 K/ul 01/22/2016 Cbc With Differential Ord2 Eos ABS# 0.1 K/ul 01/22/2016 Cbc With Differential Ord2 Baso ABS# 0.0 K/ul 01/22/2016 Comp Metabolic Jrb009 NA 134 mEq/L 01/22/2016 Comp Metabolic Sax673 K 3.8 mEq/L 01/22/2016 Comp Metabolic Bgi295 CL 102 mEq/L 01/22/2016 Comp Metabolic Lsi407 CO2 28.0 mEq/L 01/22/2016 Comp Metabolic Qur623 ANION GAP 8 01/22/2016 Comp Metabolic Ovd749 GLUCOSE 179 mg/dL 01/22/2016 Comp Metabolic Yvw982 Creat 0.5 mg/dL 01/22/2016 Comp Metabolic Fmh197 eGFR 164 ml/min/1.73m2 01/22/2016 Comp Metabolic Qmf115 BUN 11 mg/dL 01/22/2016 Comp Metabolic Ywn469 B/C Ratio 20.4 Ratio 01/22/2016 Comp Metabolic Kbp520 CALCIUM 8.2 mg/dL 01/22/2016 Comp Metabolic Rqn234 ALK PHOS 171 U/L 01/22/2016 Comp Metabolic Dkf947 AST(SGOT) 25 U/L 01/22/2016 Comp Metabolic Nqm961 ALT(SGPT) 13 U/L 01/22/2016 Comp Metabolic Gie280 BILI T 2.4 mg/dL 01/22/2016 Comp Metabolic Jrr715 ALBUMIN 3.0 g/dL 01/22/2016 Comp Metabolic Odk980 TPRO 6.3 g/dL 01/22/2016 Comp Metabolic Fcu115 GLOB 3.3 g/dL 01/22/2016 Comp Metabolic Bnz885 A/G Ratio 0.9 Ratio 01/22/2016 Comp Metabolic Tvb272 Osmo 272 mOsmo 01/22/2016 Afp Serum Tumor Marker [id number] ALPHA- FETOPROTEIN TM 2.2 ng/mL 12/25/2015 Pt Mwr0535 PT 16.4 seconds 12/20/2015 Pt Qmm8696 INR 1.4 12/20/2015 Pt Tvu6956 Low Intensity - 1.5-2.0 12/20/2015 Pt Xiy5985 Mod intensity - 2.0-3.0 12/20/2015 Pt Gzx3355 Hi intensity - 3.0-4.0 12/20/2015 Cbc With [...] 91.2 fl 12/20/2015 Cbc With Differential Ord2 Davidson% 8.1 % 12/20/2015 Cbc With Differential Ord2 [...] 0.63 K/ul 12/20/2015 Cbc With Differential Ord2 Davidson ABS# 0.4 K/ul 12/20/2015 Cbc With Differential Ord2 Eos ABS# 0.1 K/ul 12/20/2015 Cbc With Differential Ord2 Baso ABS# 0.0 K/ul 12/20/2015 Cbc With Differential Ord2 New Analyzer Notice Please note new ref ranges starting 08-22-2015 due to implemntation of new five part differential hematolgy analyzer. 12/20/2015 Comp Metabolic Loo576 NA 138 mEq/L 12/20/2015 Comp Metabolic Dop207 K 3.7 mEq/L 12/20/2015 Comp Metabolic Pch743 CL 100 mEq/L 12/20/2015 Comp Metabolic Jlv207 CO2 31.0 mEq/L 12/20/2015 Comp Metabolic Ivr963 ANION GAP 11 12/20/2015 Comp Metabolic Eum810 GLUCOSE 150 mg/dL 12/20/2015 Comp Metabolic Qel790 Creat 0.4 mg/dL 12/20/2015 Comp Metabolic Ehd956 eGFR 239 ml/min/1.73m2 12/20/2015 Comp Metabolic Ojc833 BUN 9 mg/dL 12/20/2015 Comp Metabolic Vqo059 B/C Ratio 23.1 Ratio 12/20/2015 Comp Metabolic Oqr113 CALCIUM 7.9 mg/dL 12/20/2015 Comp Metabolic Llc334 ALK PHOS 82 U/L 12/20/2015 Comp Metabolic Qer530 AST(SGOT) 29 U/L 12/20/2015 Comp Metabolic Ofj538 ALT(SGPT) 16 U/L 12/20/2015 Comp Metabolic Tqm108 BILI T 1.8 mg/dL 12/20/2015 Comp Metabolic Wam748 ALBUMIN 2.8 g/dL 12/20/2015 Comp Metabolic Jhs356 TPRO 5.8 g/dL 12/20/2015 Comp Metabolic Hfz440 GLOB 3.0 g/dL 12/20/2015 Comp Metabolic Tef095 A/G Ratio 0.9 Ratio 12/20/2015 Comp Metabolic Gtd273 Osmo 277 mOsmo 12/20/2015 Vitamin D 25 Oh Kwb6681 VITAMIN D, 25 HYDROXY 110.69 ng/mL 10/24/2015 %Hba1C Mmm919 % HbA1c 69108-8 6.0 % 10/23/2015 %Hba1C Lbi430 Gluc Ave 126 mg/dL 10/23/2015 Magnesium Ord90 Mag 1.7 mg/dL 10/23/2015 Microalbumin Cze370 MicroAlb 0.2 mg/dL 10/23/2015 Tsh Ord6 hTSH II 2.74 uIU/mL 10/23/2015 Comp Metabolic Miw977 NA 133 mEq/L 10/23/2015 Comp Metabolic Rdh975 K 3.6 mEq/L 10/23/2015 Comp Metabolic Tpb428 CL 101 mEq/L 10/23/2015 Comp Metabolic Qrs415 CO2 27.0 mEq/L 10/23/2015 Comp Metabolic Ukn119 ANION GAP 9 10/23/2015 Comp Metabolic Fvh496 GLUCOSE 250 mg/dL 10/23/2015 Comp Metabolic Fqt021 Creat 0.5 mg/dL 10/23/2015 Comp Metabolic Vub964 eGFR 164 ml/min/1.73m2 10/23/2015 Comp Metabolic Jkt174 BUN 8 mg/dL 10/23/2015 Comp Metabolic Cat809 B/C Ratio 14.8 Ratio 10/23/2015 Comp Metabolic Kvg516 CALCIUM 8.4 mg/dL 10/23/2015 Comp Metabolic Crk464 ALK PHOS 103 U/L 10/23/2015 Comp Metabolic Nvv335 AST(SGOT) 37 U/L 10/23/2015 Comp Metabolic Rwp517 ALT(SGPT) 21 U/L 10/23/2015 Comp Metabolic Enx700 BILI T 1.9 mg/dL 10/23/2015 Comp Metabolic Yei791 ALBUMIN 3.1 g/dL 10/23/2015 Comp Metabolic Bli698 TPRO 6.2 g/dL 10/23/2015 Comp Metabolic Ors764 GLOB 3.1 g/dL 10/23/2015 Comp Metabolic Aka913 A/G Ratio 1.0 Ratio 10/23/2015 Comp Metabolic Ttr287 Osmo 273 mOsmo 10/23/2015 Cbc With Differential Ord2 WBC 3.99 K/ul 10/23/2015 Cbc With Differential Ord2 RBC 4.21 M/ul 10/23/2015 Cbc With Differential Ord2 HGB 13.5 g/dl 10/23/2015 Cbc With Differential Ord2 HCT 38.2 % 10/23/2015 Cbc With Differential Ord2 Neut% 73.1 % 10/23/2015 Cbc With Differential Ord2 MCV 90.7 fl 10/23/2015 Cbc With Differential Ord2 Lymph% 13.3 % 10/23/2015 Cbc With Differential Ord2 Davidson% 9.5 % 10/23/2015 Cbc With Differential Ord2 [...] 0.53 K/ul 10/23/2015 Cbc With Differential Ord2 Davidson ABS# 0.4 K/ul 10/23/2015 Cbc With Differential Ord2 Eos ABS# 0.2 K/ul 10/23/2015 Cbc With Differential Ord2 Baso ABS# 0.0 K/ul 10/23/2015 Cbc With Differential Ord2 New Analyzer Notice Please note new ref ranges starting 1-13-2016 due to implemntation of new five part differential hematolgy analyzer. 10/23/2015 Comp Metabolic Lwp636 NA 133 mEq/L 03/15/2015 Comp Metabolic Jnk800 K 3.9 mEq/L 03/15/2015 Comp Metabolic Wge606 CL 102 mEq/L 03/15/2015 Comp Metabolic Amf625 CO2 26.0 mEq/L 03/15/2015 Comp Metabolic Sqa279 ANION GAP 9 03/15/2015 Comp Metabolic Mzg615 GLUCOSE 117 mg/dL 03/15/2015 Comp Metabolic Pyt924 Creat 0.6 mg/dL 03/15/2015 Comp Metabolic Zar930 eGFR 143 ml/min/1.73m2 03/15/2015 Comp Metabolic Bsq253 BUN 13 mg/dL 03/15/2015 Comp Metabolic Hjw697 B/C Ratio 21.3 Ratio 03/15/2015 Comp Metabolic Ywz791 CALCIUM 8.7 mg/dL 03/15/2015 Comp Metabolic Mjv240 ALK PHOS 70 U/L 03/15/2015 Comp Metabolic Tau999 AST(SGOT) 24 U/L 03/15/2015 Comp Metabolic Wqj575 ALT(SGPT) 14 U/L 03/15/2015 Comp Metabolic Uvh213 BILI T 1.2 mg/dL 03/15/2015 Comp Metabolic Wga438 ALBUMIN 3.3 g/dL 03/15/2015 Comp Metabolic Gfk213 TPRO 6.6 g/dL 03/15/2015 Comp Metabolic Hgb729 GLOB 3.3 g/dL 03/15/2015 Comp Metabolic Xth877 A/G Ratio 1.0 Ratio 03/15/2015 Comp Metabolic Rpg048 Osmo 268 mOsmo 03/15/2015 Lipid Ord30 CHOL [...] Differential Ord2 RDW 20.1 % 03/15/2015 %Hba1C Jbg434 % HbA1c 52842-5 5.9 % 03/15/2015 %Hba1C Bri967 Gluc Ave 123 mg/dL 03/15/2015 Cbc With [...] Ord2 RDW 19.8 % 02/28/2015 Comp Metabolic Udd188 NA 131 mEq/L 02/28/2015 Comp Metabolic Bai072 K 3.8 mEq/L 02/28/2015 Comp Metabolic Npt861 CL 100 mEq/L 02/28/2015 Comp Metabolic Ucy689 CO2 24.0 mEq/L 02/28/2015 Comp Metabolic Mex799 ANION GAP 11 02/28/2015 Comp Metabolic Her175 GLUCOSE 106 mg/dL 02/28/2015 Comp Metabolic Aje575 Creat 0.6 mg/dL 02/28/2015 Comp Metabolic Atq837 eGFR 155 ml/min/1.73m2 02/28/2015 Comp Metabolic Bgl462 BUN 10 mg/dL 02/28/2015 Comp Metabolic Pyb725 B/C Ratio 17.5 Ratio 02/28/2015 Comp Metabolic Whg750 CALCIUM 8.5 mg/dL 02/28/2015 Comp Metabolic Wlj923 ALK PHOS 64 U/L 02/28/2015 Comp Metabolic Zdi290 AST(SGOT) 35 U/L 02/28/2015 Comp Metabolic Yqn734 ALT(SGPT) 59 U/L 02/28/2015 Comp Metabolic Tap896 BILI T 1.7 mg/dL 02/28/2015 Comp Metabolic Wql605 ALBUMIN 3.1 g/dL 02/28/2015 Comp Metabolic Uqe996 TPRO 5.9 g/dL 02/28/2015 Comp Metabolic Tfd450 GLOB 2.8 g/dL 02/28/2015 Comp Metabolic Oqe133 A/G Ratio 1.1 Ratio 02/28/2015 Comp Metabolic Ago798 Osmo 262 mOsmo 02/28/2015 Review of Systems System Result Effective Dates Constitutional No recent illness 2016 Constitutional No [...] dentition 08/19/2016 None Full Exam - General 1995 [...] time 12/20/2014 None Procedures Procedure Codes Date FLU VAC NO PRSV 4 ELPIDIO 3 YRS+ CPT-4: 90480 05/28/2017 TOBACCO-USE SKIN LAP BONDER 3-[address]: 238836190 CPT-4: G0436 05/28/2017 ADMIN INFLUENZA VIRUS VAC CPT-4: G0008 05/28/2017 TOBACCO-USE SKIN LAP BONDER 3-[address]: 946533599 CPT-4: G0436 04/02/2017 PNEUMOCOCCAL VACC [address]: 16524691 CPT-4: 10544 04/02/2017 ADMIN PNEUMOCOCCAL VACCINE SNOMED CT: 27023370 CPT-4: G0009 04/02/2017 TOBACCO-USE SKIN LAP BONDER 3-[address]: 335650458 CPT-4: G0436 02/05/2017 TOBACCO-USE SKIN LAP BONDER 3-[address]: 327991106 CPT-4: G0436 07/21/2016 TOBACCO-USE SKIN LAP BONDER 3-[address]: 926571086 CPT-4: G0436 04/22/2016 ADMIN INFLUENZA VIRUS VAC CPT-4: G0008 04/22/2016 IIV4 FLU VACC NO PRESERV ID SNOMED CT: 40442430 CPT-4: 07790 04/22/2016 TOBACCO-USE SKIN LAP BONDER 3-[address]: 946178726 CPT-4: G0436 01/22/2016 TOBACCO-USE SKIN LAP BONDER 3-[address]: 145945470 CPT-4: G0436 10/23/2015 ADMIN INFLUENZA VIRUS VAC CPT-4: G0008 05/15/2015 IIV4 FLU VACC NO PRESERV ID Formatting Model/CDA Sections, Assigned to/Larry Karol SNOMED CT: 47955877 CPT-4: 33890Pkdnbdg 05/15/2015 Vital Signs Date Vital 07/29/2017 Blood Pressure 1: 116/72 Code : 8480-6 BMI: 30.1 Code : 59428-5 Heart Rate 1 : 73 bpm Height: 6' SpO2: 97% Weight: 222 lbs 05/28/2017 Blood Pressure 1: 116/66 Code : 8480-6 BMI: 30.4 Code : 76363-7 Heart Rate 1 : 79 bpm Height: 6' SpO2: 97% Weight: 224 lbs 04/02/2017 Blood Pressure 1: 128/68 Code : 8480-6 BMI: 31.7 Code : 11280-4 Heart Rate 1 : 77 bpm Height: 6' SpO2: 96% Weight: 234 lbs 03/04/2017 Blood Pressure 1: 138/86 Code : 8480-6 BMI: 31.7 Code : 35192-6 Heart Rate 1 : 88 bpm Height: 6' SpO2: 94% Weight: 234 lbs 02/05/2017 Blood Pressure 1: 140/78 Code : 8480-6 BMI: 30.1 Code : 62780-2 Heart Rate 1 : 68 bpm Height: 6' SpO2: 98% Weight: 222 lbs 12/22/2016 Blood Pressure 1: 146/70 Code : 8480-6 BMI: 30.4 Code : 16485-0 Heart Rate 1 : 77 bpm Height: 6' SpO2: 94% Temperature: 37.6 (C) / 99.6 (F) Weight: 224 lbs 09/08/2016 Blood Pressure 1: 136/82 Code : 8480-6 BMI: 31.8 Code : 62852-1 Heart Rate 1 : 77 bpm Height: 6' SpO2: 93% Weight: 234 lbs 8 oz 08/19/2016 Blood Pressure 1: 122/74 Code : 8480-6 BMI: 29.4 Code : 13022-0 Heart Rate 1 : 56 bpm Height: 6' SpO2: 91% Temperature: 36.9 (C) / 98.4 (F) Weight: 217 lbs 07/21/2016 Blood Pressure 1: 12068 Code : 8480-6 BMI: 29.4 Code : 23117-6 Heart Rate 1 : 94 bpm Height: 6' SpO2: 93% Weight: 217 lbs 04/22/2016 Blood Pressure 1: 11868 Code : 8480-6 BMI: 29.4 Code : 94757-6 Heart Rate 1 : 57 bpm Height: 6' SpO2: 98% Temperature: 36.6 (C) / 97.8 (F) Weight: 217 lbs 01/22/2016 Blood Pressure 1: 138 Code : 8480-6 BMI: 30.8 Code : 45530-5 Heart Rate 1 : 70 bpm Height: 6' SpO2: 96% Weight: 227 lbs 01/04/2016 Blood Pressure 1: 11670 Code : 8480-6 BMI: 29.6 Code : 02977-4 Heart Rate 1 : 66 bpm Height: 6' SpO2: 96% Weight: 218 lbs 11/16/2015 Blood Pressure 1: 110/64 Code : 8480-6 BMI: 31.6 Code : 87072-0 Heart Rate 1 : 73 bpm Height: 6' SpO2: 95% Weight: 233 lbs 10/23/2015 Blood Pressure 1: 13874 Code : 8480-6 BMI: 31.3 Code : 46495-9 Heart Rate 1 : 73 bpm Height: 6' SpO2: 98% Weight: 231 lbs 2015 Blood Pressure 1: 122 Code : 8480-6 BMI: 32.3 Code : 15004-4 Heart Rate 1 : 67 bpm Height: 6' SpO2: 97% Weight: 238 lbs 05/15/2015 Blood Pressure 1: 110/60 Code : 8480-6 BMI: 31.1 Code : 35458-2 Heart Rate 1 : 81 bpm Height: 6' SpO2: 98% Weight: 229 lbs 03/22/2015 Blood Pressure 1: 116/62 Code : 8480-6 BMI: 31.2 Code : 44057-3 Heart Rate 1 : 74 bpm Height: 6' SpO2: 98% Weight: 230 lbs 01/23/2015 Blood Pressure 1: 124/68 Code : 8480-6 BMI: 31.1 Code : 19580-2 Heart Rate 1 : 74 bpm Height: 6' Weight: 229 lbs 12/20/2014 Blood Pressure 1: 110/74 Code : 8480-6 BMI: 30.9 Code : 50576-6 Heart Rate 1 : 72 bpm Height: [...] Present Encounters Encounter Performer Location Codes Date ([id number]) [id number] EST. 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 PATIENT, LEVEL IV Diagnosis: Type 2 diabetes mellitus without complications[ICD10: E11.9] Diagnosis: Essential (primary) hypertension[ICD10: I10] Diagnosis: Encounter for immunization[ICD10: Z23] Ayesha Lyn MD, [facility] CPT-4: 43921 05/28/2017 ([id number]) 11214 EST. PATIENT, LEVEL IV Diagnosis: Type 2 diabetes mellitus without complications[ICD10: E11.9] Diagnosis: Essential (primary) hypertension[ICD10: I10] Diagnosis: Tobacco use[ICD10: Z72.0] Diagnosis: Epistaxis[ICD10: R04.0] Diagnosis: Encounter for immunization[ICD10: Z23] Ayesha Lyn MD [facility] CPT-4: 09418 04/02/2017 ([id number]) 14662 EST. PATIENT, LEVEL IV Diagnosis: Type 2 diabetes mellitus without complications[ICD10: E11.9] Diagnosis: Essential (primary) hypertension[ICD10: I10] Diagnosis: Chronic pain syndrome[ICD10: G89.4] JAYLEN Rodriguez MD CPT-4: 51408 03/04/2017 ([id number]) 94701 EST. 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 PATIENT, LEVEL IV Diagnosis: Right upper quadrant pain[ICD10: R10.11] Diagnosis: VACCIN FOR INFLUENZA[ICD10: Z23] Diagnosis: Type 2 diabetes mellitus without complications[ICD10: E11.9] Diagnosis: Tobacco use[ICD10: Z72.0] Ayesha Lyn MD, [facility] CPT-4: 74300 04/22/2016 ([id number]) 71214 EST. PATIENT, LEVEL IV Diagnosis: Type 2 diabetes mellitus without complications[ICD10: E11.9] Diagnosis: Chronic pain syndrome[ICD10: G89.4] Diagnosis: Essential (primary) hypertension[ICD10: I10] Diagnosis: Insomnia due to medical condition[ICD10: G47.01] Diagnosis: Tobacco use[ICD10: Z72.0] Ayesha Lyn MD, [facility] CPT-4: 70897 01/22/2016 09352 EST. PATIENT, LEVEL III Diagnosis: Dysuria[ICD10: R30.0] Eunice Lyn MD, [facility] CPT-4: 57699 01/04/2016 54997 EST. PATIENT, LEVEL IV Diagnosis: Encounter for follow-up examination after completed treatment for conditions other than malignant neoplasm[ICD10: Z09] Diagnosis: Chronic pain syndrome[ICD10: G89.4] Diagnosis: Essential (primary) hypertension[ICD10: I10] Eunice Lyn MD, [facility] CPT-4: 19230 11/16/2015 ([id number]) 33747 EST. 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 PATIENT, LEVEL IV Diagnosis: Type 2 diabetes mellitus without complications[ICD10: E11.9] Diagnosis: Chronic pain syndrome[ICD10: G89.4] Diagnosis: Chronic obstructive pulmonary disease, unspecified[ICD10: J44.9] Ayesha Lyn MD, [facility] CPT-4: 09530 2015 ([id number]) 09108 EST. PATIENT, LEVEL IV Diagnosis: Encounter for immunization[ICD10: Z23] Diagnosis: Type 2 diabetes mellitus without complications[ICD10: E11.9] Diagnosis: Chronic pain syndrome[ICD10: G89.4] Diagnosis: Insomnia, unspecified[ICD10: G47.00] Ayesha Lyn MD, [facility] CPT-4: 36286 05/15/2015 ([id number]) 51787 EST. PATIENT, LEVEL IV Diagnosis: DIABETES TYPE II[ICD9: 250.00] Diagnosis: ESSENTIAL HYPERTENSION[ICD9: 401.9] Ayesha Lyn MD, [facility] CPT-4: 74603 03/22/2015 ([id number]) 53895 EST. PATIENT, LEVEL IV Diagnosis: Umbilical hernia[ICD9: 553.1] Diagnosis: 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[ICD9: V02.62] Diagnosis: CHRONIC PAIN SYNDROME[ICD9: 338.4] Diagnosis: Tumor of liver[ICD9: 239.0] Diagnosis: Urinary tract infection[ICD9: 599.0] Diagnosis: DIABETES TYPE II[ICD9: 250.00] Ayesha Lyn MD, [facility] CPT- 4: 79021 01/23/2015 ([id number]) OFFICE/OUTPATIENT VISIT NEW Diagnosis: DIABETES TYPE II[ICD9: 250.00] Diagnosis: ESOPHAGEAL REFLUX[ICD9: 530.81] Diagnosis: BACKACHE[ICD9: 724.5] Diagnosis: CHRONIC PAIN SYNDROME[ICD9: 338.4] Diagnosis: 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[ICD9: V02.62] [facility] CPT-4: 54347 12/20/2014 Plan of Care Planned Activity Notes Codes Status Date Appointment: [phone] [place] (15 min) Moderate 07/29/2017 Patient Education: Patient Medication Summary Completed 07/29/2017 Patient Education: Smoking and Tobacco Addiction Completed 07/29/2017 Patient Education: Obesity Completed 07/29/2017 Appointment: [phone] [place] (15 min) Moderate 05/28/2017 Patient Education: Patient Medication Summary Completed 05/28/2017 Patient Education: Smoking and Tobacco Addiction Completed 05/28/2017 Patient Education: Obesity Completed 05/28/2017 Patient Education: Hypertension Completed 05/28/2017 Appointment: Ayesha Lyn WPtel: [facility]5 [facility] [place] (15 min) Moderate 04/02/2017 Patient Education: Patient Medication Summary Completed 04/02/2017 Patient Education: Smoking and Tobacco Addiction Completed 04/02/2017 Patient Education: Malnutrition Completed 04/02/2017 Patient Education: Obesity Completed 04/02/2017 Patient Education: Hypertension Completed 04/02/2017 Appointment: Ayesha Lyn WPtel: [facility] [place] (15 min) Moderate 03/04/2017 Patient Education: Patient Medication Summary Completed 03/04/2017 Patient Education: Smoking and Tobacco Addiction Completed 03/04/2017 Patient Education: Obesity Completed 03/04/2017 Patient Education: Hypertension Completed 03/04/2017 Patient Education: Patient Medication Summary Completed 02/05/2017 Patient Education: Smoking and Tobacco Addiction Completed 02/05/2017 Patient Education: Obesity Completed 02/05/2017 Patient Education: Hypertension Completed 02/05/2017 Appointment: [facility] Lyn [facility]el[phone] [place] (15 min) Moderate 02/03/2017 Appointment: Eunice Betancourt WPtel: [phone] [facility] [place] (30 min) Complex 01/06/2017 Appointment: Eunice Betancourt WPtel: [facility]5 [facility] [place] (15 min) Moderate 01/01/2017 Appointment: Ayesha Lyn WPtel: [facility]5 [facility] [place] (15 min) Moderate 12/22/2016 Appointment: Eunice Betancourt WPtel[facility] [place] ([facility] [place]) Moderate 12/22/2016 Patient Education: Patient Medication Summary Completed 12/22/2016 Patient Education: Smoking and Tobacco Addiction Completed 12/22/2016 Patient Education: Obesity Completed 12/22/2016 Appointment: Lab Draw 12/18/2016 Patient Education: Patient Medication Summary Completed 12/04/2016 Appointment: Ayesha Lyn WPtel: [facility] (15 min) Moderate 09/08/2016 Patient Education: Patient Medication Summary Completed 09/08/2016 Patient Education: Obesity Completed 09/08/2016 Care Plan: US EXAM ABDOM COMPLETE Pending 09/08/2016 Appointment: Ayesha Lyn WPtel: [address] [place], [place] [id number] (15 min) Moderate 08/19/2016 Patient Education: Patient Medication Summary Completed 08/19/2016 Patient Education: Smoking and Tobacco Addiction Completed 08/19/2016 Appointment: Ayesha Lyn WPtel: [address] [place], [place] [address] [place] (15 min) Moderate 07/21/2016 Patient Education: Patient Medication Summary Completed 07/21/2016 Patient Education: Smoking and Tobacco Addiction Completed 07/21/2016 Patient Education: Obesity Completed 07/21/2016 Appointment: Ayesha Lyn WPtel: [facility] [place] (15 min) Moderate 04/22/2016 Patient Education: Patient Medication Summary Completed 04/22/2016 Patient Education: Smoking and Tobacco Addiction Completed 04/22/2016 Patient Education: Obesity Completed 04/22/2016 Care Plan: ECHO EXAM OF ABDOMEN Pending 04/22/2016 Patient Education: Patient Medication Summary Completed 01/22/2016 Patient Education: Smoking and Tobacco Addiction Completed 01/22/2016 Patient Education: Obesity Completed 01/22/2016 Patient Education: Hypertension Completed 01/22/2016 [phone] [facility] [place] (30 min) Complex 01/04/2016 Patient Education: Patient Medication Summary Completed 01/04/2016 Patient Education: Smoking and Tobacco Addiction Completed 01/04/2016 Patient Education: Patient Medication Summary Completed 01/04/2016 Appointment: (30 min) Complex 11/16/2015 Patient Education: Patient Medication Summary Completed 11/16/2015 Patient Education: Smoking and Tobacco Addiction Completed 11/16/2015 Patient Education: Obesity Completed 11/16/2015 Patient Education: Patient Medication Summary Completed 10/23/2015 Patient Education: Smoking and Tobacco Addiction Completed 10/23/2015 Patient Education: Obesity Completed 10/23/2015 Patient Education: Hypertension Completed 10/23/2015 [facility] [phone] [facility] [place] (15 min) Moderate 09/18/2015 Appointment: Ayesha Lyn WPtel: [facility] [place] (15 min) Moderate 2015 Patient Education: Patient Medication Summary Completed 2015 Appointment: Ayesha Lyn WPtel: [facility] [place] (15 min) Moderate 05/15/2015 Patient Education: Patient Medication Summary Completed 05/15/2015 Appointment: Ayesha Lyn WPtel: [facility] [place] (15 min) Moderate 05/09/2015 Appointment: [facility]yes[facility] Lyn [facility]Ptel[facility] [phone] [facility] [place] Follow up 03/22/2015 Patient Education: Patient Medication Summary Completed 03/22/2015 Patient Education: Hypertension Completed 03/22/2015 Appointment: (15 min) Moderate 01/23/2015 Patient Education: Patient Medication Summary Completed 01/23/2015 Appointment: Ayesha Lyn WPtel: [facility] [place] (S) New Patient 12/20/2014 Patient Education: Patient Medication Summary Completed 12/20/2014 Patient Education: Hypertension Completed 12/20/2014 Instructions No Instructions
[2018-07-14] MEDS ORDERED: POTA20TA15 PO (15:45)
[2018-07-14] MEDS ORDERED: EXEN2PEN SC (15:45)
[2018-07-14] MEDS ORDERED: DESV100T16 PO (15:45)
[2018-07-14] MEDS ORDERED: PANT20TA3 PO (15:45)
[2018-07-14] MEDS ORDERED: RIVA1PAT TD (15:45)
[2018-07-14] MEDS ORDERED: INSU100I34 SC (15:45)
[2018-07-14] MEDS ORDERED: MELA10CA2 PO (15:45)
[2018-07-14] MEDS ORDERED: NICO-588 TD (15:56)
[2018-07-14] MEDS ORDERED: VANCOMYCIN 2000 MG/NS 500 ML IVPB IV NR ×2 (16:00)
[2018-07-14] MEDS ORDERED: IPRA3AMP31 NEB (16:00)
[2018-07-14] MEDS: NS IV 1000 ML 1,000 ML IV SCH (16:26)
[2018-07-14 16:34] LABS: HEMATOCRIT 29 % (40-54); HEMOGLOBIN 9.1 G/DL (13.3-17.7); MEAN CORPUSCULAR HEMOGLOBIN 27 PG (25-34); MEAN CORPUSCULAR HGB CONC 32 G/DL (32-36); MEAN CORPUSCULAR VOLUME 85 FL (80-99); PLATELET COUNT 53 10^3/uL (130-400); RED BLOOD COUNT 3.36 10^6/uL (4.35-5.85); RED CELL DISTRIBUTION WIDTH 18.2 % (10.0-14.5); WHITE BLOOD COUNT 4.5 10^3/uL (4.3-11.0)
[2018-07-14] MEDS: LACTOBACILLUS ACIDOPHILUS (PROBIOTIC) CAPSULE PO SCH (16:46)
[2018-07-14 16:54] LABS: ALANINE AMINOTRANSFERASE 39 U/L (0-55); ALBUMIN 2.3 GM/DL (3.2-4.5); ALKALINE PHOSPHATASE 151 U/L (40-136); BILIRUBIN,TOTAL 2.3 MG/DL (0.1-1.0); BUN/CREATININE RATIO 17; CARBON DIOXIDE 24 MMOL/L (21-32); CHLORIDE 103 MMOL/L (98-107); CREATININE SERUM 0.69 MG/DL (0.60-1.30); GFR ESTIMATED > 60; GLUCOSE 284 MG/DL (70-105); POTASSIUM 3.4 MMOL/L (3.6-5.0); SODIUM 135 MMOL/L (135-145); TOTAL PROTEIN 5.6 GM/DL (6.4-8.2)
--- NOTE | 2018-07-14 17:31 | History & Physicial ---
History of Present Illness History of Present Illness Reason for visit/HPI PT IS A 62 Y/O MALE WHO IS WELL KNOWN TO ME FROM CLINIC WITH HX OF HEPATOCELLULAR CARCINOMA, DIABETES MELLITUS, AND CHRONIC TOBACCOISM. HE APPARENTLY HAD BEEN FEELING FAIRLY WELL UNTIL THE PAST WEEK - HIS SISTERS NOTICED SWELLING AND WEEPING OF HIS LOWER LEGS, THEY BROUGHT HIM TO THE OFFICE TODAY WITH CONCERN FOR A LARGE WOUND ON HIS LEG ON THE LEFT. HIS SISTERS BROUGHT HIM IN TO THE OFFICE TODAY WITH CONCERN FOR HIS LEGS AND POSSIBLE NEED FOR ADMISSION. Date of Admission Jul 14, 2018 at 15:15 Date Seen by a Provider: Jul 14, 2018 Time Seen by a Provider: 14:00 I consulted on this patient on 07/14/18 17:20 Attending Physician Brittany Lyn MD Admitting Physician Brittany Lyn MD Consult Allergies and Home Medications Allergies Coded Allergies: midazolam (Verified Adverse Reaction, Unknown, 12/27/16) BEHAVORIAL Home Medications Albuterol Sulfate 18 Gm Hfa.aer.ad, 2 PUFF IH Q6H PRN for SHORTNESS OF BREATH, ( Reported) Cholecalciferol (Vitamin D3) 2,000 Unit Capsule, 2,000 UNIT PO 1200, (Reported) Desvenlafaxine Succinate 100 Mg Tab.er.24h, 100 MG PO 1200, (Reported) Exenatide Microspheres 2 Mg/0.65 Ml Pen.injctr, 2 MG SC Th, (Reported) Furosemide 20 Mg Tablet, 20 MG PO 0800,1100, (Reported) Insulin Glargine,Hum.rec.anlog 100 Unit/1 Ml Insuln.pen, 14 UNITS SC 1700, ( Reported) Ipratropium/Albuterol Sulfate 3 Ml Ampul.neb, 3 ML NEB TID PRN for SHORTNESS OF BREATH, (Reported) Mirtazapine 15 Mg Tablet, 15 MG PO HS, (Reported) Morphine Sulfate 15 Mg Tablet.er, 15 MG PO Q8H PRN for PAIN-SEVERE, (Reported) Nicotine 1 Each Patch.td24, 1 PATCH TD DAILY, (Reported) Pantoprazole Sodium 20 Mg Tablet.dr, 20 MG PO DAILY, (Reported) Potassium Chloride 20 Meq Tab.er.prt, 20 MEQ PO 1200, (Reported) Rifaximin 550 Mg Tablet, 550 MG PO BID, (Reported) Rivastigmine 4.6 Mg Patch, 4.6 MG TD DAILY, (Reported) Trazodone HCl 50 Mg Tablet, 50 MG PO HS, (Reported) Patient Home Medication List Home Medication List Reviewed: Yes Past Oerbkyw-Tutzlc-Utzxsv Hx Patient Social History Marrital Status: Living Status: LIVES AT HOME ALONE Employed/Student: unemployed Alcohol Use: Denies Use Alcohol Beverage of Choice: Beer Recreational Drug Use: No Smoking Status: Current Everyday Smoker Former Smoker, Quit: Sep 02, 2016 Type Used: Cigarettes 2nd Hand Smoke Exposure: No Physical Abuse Screen: No Sexual Abuse: No Recent Foreign Travel: No Contact w/other who traveled: No Recent Hopitalizations: Yes (OCTOBER 2016 AT ) Recent Infectious Disease Expo: No Immunizations Up To Date Tetanus Booster (TDap): Less than 5yrs Pediatric: No Date of Pneumonia Vaccine: Jul 10, 2008 Date of Influenza Vaccine: May 24, 2018 Seasonal Allergies Seasonal Allergies: No Surgeries Yes (FACIAL AND HEAD RECONSTRUCTION SECONDARY TO TRAUMA PER PT;VENA CAVA FILTER, ) Vascular Surgery Respiratory Yes COPD Currently Using CPAP: No Currently Using BIPAP: No Cardiovascular Yes Hypertension Neurological Yes (MEMORY LOSS) Reproductive System Hx Reproductive Disorders: No Sexually Transmitted Disease: No HIV/AIDS: No Genitourinary No Gastrointestinal Yes (HEAPTITIS C--CHRONIC LIVER FAILURE) Gastroesophageal Reflux, Liver Disease/Jaundice, Esophageal Varices, Hepatitis, Cirrhosis Musculoskeletal Yes (CHRONIC NECK PAIN, LUMBAR COMPRESSION FRACTURE ) Chronic Back Pain, Fractures Endocrine History of Endocrine Disorders: Yes (INSULIN + ORAL MEDICATIONS) Endocrine Disorders: Diabetes, Insulin dep HEENT Loss of Vision: Denies Hearing Impairment: Denies Cancer Yes Liver Psychosocial History of Psychiatric Problem: Yes Behavioral Health Disorders: Anxiety Integumentary History of Skin or Integumenta: No Blood Transfusions History of Blood Disorders: No Adverse Reaction to a Blood Tr: No Reviewed Nursing Assessment Reviewed/Agree w Nursing PMH: Yes Family Medical History Significant Family History: Heart Disease, Hypertension Family Hx: Coronary thrombosis Myocardial infarction Review of Systems Constitutional: No chills, No dizziness, No fever; malaise, weakness EENTM: No vision loss, No hoarseness Respiratory: No cough, No dyspnea on exertion, No short of breath Cardiovascular: No edema, No palpitations Gastrointestinal: No abdominal pain, No nausea, No vomiting Genitourinary: no symptoms reported Musculoskeletal: back pain, muscle weakness Skin: other (LESIONS ON ARMS, LEGS, GROIN) Psychiatric/Neurological: Denies Anxiety; Depressed, Weakness All Other Systems Reviewed Negative Unless Noted: Yes Physical Exam Vital Signs Capillary Refill : Height, Weight, BMI Height: 6'0.00" Weight: 225lbs. 0.0oz. [id number]; 30.5 BMI Method:Estimated General Appearance: No Apparent Distress, WD/WN HEENT: PERRL/EOMI, Pharynx Normal Neck: Full Range of Motion, Non Tender, Supple Respiratory: Chest Non Tender, Lungs Clear, Normal Breath Sounds, No Accessory Muscle Use, No Respiratory Distress Cardiovascular: Regular Rate, Rhythm Gastrointestinal: Normal Bowel Sounds, No Pulsatile Mass, Non Tender, Soft Rectal: Deferred Extremity: Pedal Edema Neurologic/Psychiatric: Alert, Oriented x3, Normal Mood/Affect Skin: Other (SERPIGINOUS BORDER TO WOUND ON LEFT LOWER LEG ANTERIOR TIBIA MEDIALLY, MULTIPLE LESIONS ON LEGS, ARMS, EXCORIATION JUSTICE) Lymphatic: No Adenopathy Assessment/Plan Assessment and Plan CELLULITIS BILATERAL LOWER EXTREMITIES HEPATOCELLULAR CARCINOMA METASTATIC TO LUNGS HX OF HEPATITIS C S/P CLEARANCE OF INFECTION CIRRHOSIS HYPERTENSION DIABETES MELLITUS CHRONIC PAIN SYNDROME CHRONIC ANXIETY ESOPHAGEAL REFLUX COPD TOBACCOISM CELLULITIS BILATERAL LOWER EXTREMITIES - UNCERTAIN TO REASON FOR ACUTE SKIN CHANGES - CULTURE PENDING - PT DOES NOT HAVE SEPSIS DESPITE ELEVATED LACTIC ACID - HE HAS CHRONIC CIRRHOSIS WITH CHRONIC LIVER FAILURE WHICH HAS CAUSED ELEVATED LACTIC ACID LEVELS. HEPATOCELLULAR CARCINOMA METASTATIC TO LUNGS - SUPPORTIVE CARE ONLY AT THIS TIME. HX OF HEPATITIS C S/P CLEARANCE OF INFECTION CIRRHOSIS - CHRONIC - SUPPORTIVE CARE AT THIS TIME HYPERTENSION - RESUME HOME MEDICATIONS DIABETES MELLITUS - RESTART HOME MEDICATIONS, FSBS ACHS AND SLIDING SCALE B CHRONIC PAIN SYNDROME - RESUME HOME REGIMEN CHRONIC ANXIETY AND DEPRESSION - RESUME HOME REGIMEN ESOPHAGEAL REFLUX - RESTART PANTOPRAZOLE COPD - MONITOR SYMPTOMS - SUPPORTIVE CARE AT THIS TIME TOBACCOISM - NICODERM Admission Diagnosis CELLULITIS BILATERAL LOWER EXTREMITIES HEPATOCELLULAR CARCINOMA METASTATIC TO LUNGS HX OF HEPATITIS C S/P CLEARANCE OF INFECTION CIRRHOSIS HYPERTENSION DIABETES MELLITUS CHRONIC PAIN SYNDROME CHRONIC ANXIETY ESOPHAGEAL REFLUX COPD TOBACCOISM Admission Status: Inpatient Order (span 2 midnights) Reason for Inpatient Admission: ADMISSION TO THE HOSPITAL - WILL REQUIRE AT LEAST 72 HOURS OF HOSPITALIZATION FOR STABILIZATION OF SYMPTOMS AND TREATMENT OF WOUNDS Clinical Quality Measures DVT/VTE Risk/Contraindication: Risk Factor Score Per Nursin RFS Level Per Nursing on Admit: 4+=Very High Contraindications-Pharm: Other *list below* Contraindications-Mechi: Other *list below* Other: gross wounds on lower legs, cannot place compression or scds, waiting on labs before ordering anticoBRITTANY Metzger MD Jul 14, 2018 17:31
[2018-07-14] MEDS: inSUlin DETERMIR 1 UNIT/0.01 ML (LEVEMIR) CHARGE PER UNIT SQ SCH (18:16)
[2018-07-14] MEDS: inSUlin ASPART (NovoLOG) 1 UNIT/0.01 ML (CHARGE PER UNIT) SC SCH ×2 (18:16→20:57)
[2018-07-14] MEDS: MEROPENEM 500 MG in NS (IVPB) 100 ML IV SCH (18:17)
[2018-07-14 20:15] VITALS: BP 121/67
[2018-07-14] MEDS ORDERED: hydrOXYzine (VISTARIL) 25 MG CAP PO PRN (20:45)
[2018-07-14] MEDS: MIRTAZAPINE 15 MG (REMERON) TAB PO SCH (20:57)
[2018-07-14] MEDS: traZODone 50 MG (DESYREL) TAB PO SCH (20:57)
[2018-07-14] MEDS: hydrOXYzine (VISTARIL) 25 MG CAP PO PRN (20:57)
[2018-07-14] MEDS: RIFAXIMIN 550 MG TABLET (XIFAXAN) PO SCH (20:57)
[2018-07-14] MEDS ORDERED: NON-FORMULARY MEDICATION 1 EA EA (Mirtazapine 15 MG) PO SCH (21:00)
[2018-07-14] MEDS ORDERED: MEROPENEM 1,000 MG in NS (IVPB) 100 ML IV SCH (22:00)
[2018-07-15] MEDS: MEROPENEM 500 MG in NS (IVPB) 100 ML IV SCH ×5 (00:07→23:44)
[2018-07-15] MEDS: morphine ER 15 MG (MS CONTIN) TAB PO PRN ×2 (00:11→10:27)
[2018-07-15 00:31] VITALS: BP 124/70
[2018-07-15] MEDS: NS IV 1000 ML 1,000 ML IV SCH ×3 (03:17→16:49)
[2018-07-15] MEDS: VANCOMYCIN 1,750 MG/NS 500 ML IVPB IV SCH ×4 (03:20→16:50)
[2018-07-15 04:12] VITALS: BP 116/58
[2018-07-15] MEDS: inSUlin ASPART (NovoLOG) 1 UNIT/0.01 ML (CHARGE PER UNIT) SC SCH ×4 (05:39→21:54)
[2018-07-15 05:50] LABS: HEMATOCRIT 29 % (40-54); MEAN CORPUSCULAR HEMOGLOBIN 27 PG (25-34); MEAN CORPUSCULAR HGB CONC 31 G/DL (32-36); MEAN CORPUSCULAR VOLUME 86 FL (80-99); PLATELET COUNT 56 10^3/uL (130-400); RED BLOOD COUNT 3.39 10^6/uL (4.35-5.85); RED CELL DISTRIBUTION WIDTH 18.4 % (10.0-14.5); WHITE BLOOD COUNT 4.7 10^3/uL (4.3-11.0)
[2018-07-15] MEDS: LACTOBACILLUS ACIDOPHILUS (PROBIOTIC) CAPSULE PO SCH ×3 (06:03→18:15)
[2018-07-15] MEDS: PANTOPRAZOLE 20 MG TABLET (PROTONIX) PO SCH (06:04)
[2018-07-15 06:29] LABS: BUN/CREATININE RATIO 17; CALCIUM 7.7 MG/DL (8.5-10.1); CARBON DIOXIDE 24 MMOL/L (21-32); CHLORIDE 107 MMOL/L (98-107); CREATININE SERUM 0.59 MG/DL (0.60-1.30); GFR ESTIMATED > 60; GLUCOSE 104 MG/DL (70-105); POTASSIUM 3.6 MMOL/L (3.6-5.0); SODIUM 139 MMOL/L (135-145)
[2018-07-15 08:00] VITALS: BP 136/67
[2018-07-15] MEDS ORDERED: NON-FORMULARY MEDICATION 1 EA EA (Pantoprazole Sodium 20 MG) PO SCH (09:00)
[2018-07-15] MEDS ORDERED: NICOTINE 21 MG (NICODERM) PATCH TD SCH (09:00)
[2018-07-15] MEDS: FUROSEMIDE 20 MG (LASIX) TAB PO SCH ×2 (09:11→12:02)
[2018-07-15] MEDS: RIFAXIMIN 550 MG TABLET (XIFAXAN) PO SCH ×2 (09:11→21:54)
[2018-07-15] MEDS: NICOTINE 7 MG (NICODERM) PATCH TD SCH (09:11)
[2018-07-15] MEDS: NICOTINE PATCH REMOVAL TP SCH (09:12)
--- NOTE | 2018-07-15 09:41 | Progress Note ---
Subjective Date Seen by a Provider: Jul 16, 2018 Time Seen by a Provider: 09:30 Subjective/Events-last exam PT REPORTS THAT HE IS HAVING PAIN IN HIS LEGS AND BACK, HE DENIES ABDOMINAL PAIN , NAUSEA, CHEST PAIN. STAFF REPORTS THAT HE HAS BEEN PICKING AT HIS WOUNDS - HE HAS BLOOD ON HIS GOWN. Review of Systems General: No Chills; Fatigue, Malaise HEENT: No Head Aches, No Sore Throat Pulmonary: Dyspnea; No Cough Cardiovascular: No: Chest Pain, Palpitations Gastrointestinal: No: Nausea, Abdominal Pain Genitourinary: No Dysuria Musculoskeletal: back pain, leg pain Neurological: Weakness; No: Confusion Focused Exam Lactate Level 07/14/18 16:22: Lactic Acid Level 2.60*H 07/14/18 19:38: Lactic Acid Level 2.31*H Objective Exam Last Set of Vital Signs Vital Signs Date Time Temp Pulse Resp B/P (MAP) Pulse Ox O2 Delivery O2 Flow Rate FiO2 07/15/18 08:48 Room Air 07/15/18 08:00 97.3 80 18 136/67 (90) 98 Capillary Refill : I&O Intake and Output 07/15/18 00:00 Intake Total 1440 ml Output Total 300 ml Balance 1140 ml Intake Oral 820 ml IV Total 620 ml Output Urine Total 300 ml # Voids 2 # Bowel Movements 1 Daily Weight Change No General: Alert, Oriented X3, Cooperative HEENT: Atraumatic, PERRLA Neck: Supple Lungs: Clear to Auscultation Heart: Regular Rate Abdomen: Normal Bowel Sounds, Soft, No Tenderness Extremities: No Cyanosis Skin: Other (ERYTHEMA, MACERATION, EXTENSIVE OPEN WOUNDS ON BILATERAL LOWER EXTREMITIES) Neuro: Normal Speech, Strength at 5/5 X4 Ext, Cranial Nerves 3-12 NL Psych/Mental Status: Mental Status NL Results Lab Laboratory Tests 07/14/18 16:22: Lactic Acid Level 2.60*H 07/14/18 16:24: White Blood Count 4.5, Red Blood Count 3.36L, Hemoglobin 9.1L, Hematocrit 29L, Mean Corpuscular Volume 85, Mean Corpuscular Hemoglobin 27, Mean Corpuscular Hemoglobin Concent 32, Red Cell Distribution Width 18.2H, Platelet Count 53L, Mean Platelet Volume , Sodium Level 135, Potassium Level 3.4L, Chloride Level 103, Carbon Dioxide Level 24, Anion Gap 8, Blood Urea Nitrogen 12, Creatinine 0.69, Estimat Glomerular Filtration Rate > 60, BUN/Creatinine Ratio 17, Glucose Level 284H, Calcium Level 8.0L, Corrected Calcium 9.4, Total Bilirubin 2.3H, Aspartate Amino Transf (AST/SGOT) 49H, Alanine Aminotransferase (ALT/SGPT) 39, Alkaline Phosphatase 151H, Total Protein 5.6L, Albumin 2.3L 07/14/18 17:55: Glucometer 276H 07/14/18 19:38: Lactic Acid Level 2.31*H 07/14/18 20:35: Glucometer 300H 07/15/18 05:25: Glucometer 101 07/15/18 05:38: White Blood Count 4.7, Red Blood Count 3.39L, Hemoglobin 9.0L, Hematocrit 29L, Mean Corpuscular Volume 86, Mean Corpuscular Hemoglobin 27, Mean Corpuscular Hemoglobin Concent 31L, Red Cell Distribution Width 18.4H, Platelet Count 56L, Mean Platelet Volume , Sodium Level 139, Potassium Level 3.6, Chloride Level 107 , Carbon Dioxide Level 24, Anion Gap 8, Blood Urea Nitrogen 10, Creatinine 0.59L , Estimat Glomerular Filtration Rate > 60, BUN/Creatinine Ratio 17, Glucose Level 104, Calcium Level 7.7L Assessment/Plan Assessment/Plan Assess & Plan/Chief Complaint CELLULITIS BILATERAL LOWER EXTREMITIES HEPATOCELLULAR CARCINOMA METASTATIC TO LUNGS HX OF HEPATITIS C S/P CLEARANCE OF INFECTION CIRRHOSIS HYPERTENSION DIABETES MELLITUS CHRONIC PAIN SYNDROME CHRONIC ANXIETY ESOPHAGEAL REFLUX COPD TOBACCOISM CELLULITIS BILATERAL LOWER EXTREMITIES - UNCERTAIN TO REASON FOR ACUTE SKIN CHANGES - CULTURE PENDING - GRAM POSITIVE ORGANISMS - PT DOES NOT HAVE SEPSIS DESPITE ELEVATED LACTIC ACID - HE HAS CHRONIC CIRRHOSIS WITH CHRONIC LIVER FAILURE WHICH HAS CAUSED ELEVATED LACTIC ACID LEVELS. HEPATOCELLULAR CARCINOMA METASTATIC TO LUNGS - SUPPORTIVE CARE ONLY AT THIS TIME. HX OF HEPATITIS C S/P CLEARANCE OF INFECTION CIRRHOSIS - CHRONIC - SUPPORTIVE CARE AT THIS TIME HYPERTENSION - RESUME HOME MEDICATIONS DIABETES MELLITUS - RESTART HOME MEDICATIONS, FSBS ACHS AND SLIDING SCALE B CHRONIC PAIN SYNDROME - RESUMED HOME REGIMEN CHRONIC ANXIETY AND DEPRESSION - RESUME HOME REGIMEN ESOPHAGEAL REFLUX - RESTART PANTOPRAZOLE COPD - RESTART BREATHING TREATMENTS TOBACCOISM - NICODERM Clinical Quality Measures Admission Status Admission Dx CELLULITIS BILATERAL LOWER EXTREMITIES HEPATOCELLULAR CARCINOMA METASTATIC TO LUNGS HX OF HEPATITIS C S/P CLEARANCE OF INFECTION CIRRHOSIS HYPERTENSION DIABETES MELLITUS CHRONIC PAIN SYNDROME CHRONIC ANXIETY ESOPHAGEAL REFLUX COPD TOBACCOISM DVT/VTE Risk/Contraindication: Risk Factor Score Per Nursin RFS Level Per Nursing on Admit: 4+=Very High Contraindications-Pharm: Other *list below* Contraindications-Mechi: Other *list below* Other: gross wounds on lower legs, cannot place compression or scds, waiting on labs before ordering anticoBRITTANY Metzger MD Jul 15, 2018 09:41
[2018-07-15 12:00] VITALS: BP 126/64
[2018-07-15] MEDS ORDERED: NON-FORMULARY MEDICATION 1 EA EA (Desvenlafaxine Succinate (Desvenlafaxine Succinate ER) 1 PO SCH (12:00)
[2018-07-15] MEDS: VENlafaxine XR 75 MG (EFFEXOR XR) CAP PO SCH (12:06)
[2018-07-15] MEDS: KCL 20 MEQ TAB (K-DUR) PO SCH (12:07)
[2018-07-15 16:00] VITALS: BP 139/76
[2018-07-15] MEDS: inSUlin DETERMIR 1 UNIT/0.01 ML (LEVEMIR) CHARGE PER UNIT SQ SCH (16:49)
[2018-07-15] MEDS ORDERED: NON-FORMULARY MEDICATION 1 EA EA (Exenatide Microspheres (Bydureon Pen) 2 MG) SC SCH (17:45)
[2018-07-15] MEDS: hydrOXYzine (VISTARIL) 25 MG CAP PO PRN (18:16)
[2018-07-15 20:00] VITALS: BP 107/60
[2018-07-15] MEDS: MIRTAZAPINE 15 MG (REMERON) TAB PO SCH (21:54)
[2018-07-15] MEDS: traZODone 50 MG (DESYREL) TAB PO SCH (21:54)
[2018-07-16 00:12] VITALS: BP 125/69
[2018-07-16] MEDS: VANCOMYCIN 1,750 MG/NS 500 ML IVPB IV SCH ×4 (03:50→16:08)
[2018-07-16] MEDS: inSUlin ASPART (NovoLOG) 1 UNIT/0.01 ML (CHARGE PER UNIT) SC SCH ×4 (06:07→19:40)
[2018-07-16] MEDS: MEROPENEM 500 MG in NS (IVPB) 100 ML IV SCH ×3 (06:07→18:21)
[2018-07-16] MEDS: LACTOBACILLUS ACIDOPHILUS (PROBIOTIC) CAPSULE PO SCH ×3 (06:09→17:27)
[2018-07-16] MEDS: PANTOPRAZOLE 20 MG TABLET (PROTONIX) PO SCH (06:09)
[2018-07-16 06:11] LABS: HEMATOCRIT 26 % (40-54); MEAN CORPUSCULAR HEMOGLOBIN 27 PG (25-34); MEAN CORPUSCULAR HGB CONC 31 G/DL (32-36); MEAN CORPUSCULAR VOLUME 86 FL (80-99); RED BLOOD COUNT 3.02 10^6/uL (4.35-5.85); RED CELL DISTRIBUTION WIDTH 17.4 % (10.0-14.5); WHITE BLOOD COUNT 2.2 10^3/uL (4.3-11.0)
[2018-07-16 06:14] LABS: PLATELET COUNT 31 10^3/uL (130-400)
[2018-07-16 06:31] LABS: BUN/CREATININE RATIO 20; CALCIUM 7.4 MG/DL (8.5-10.1); CARBON DIOXIDE 24 MMOL/L (21-32); CHLORIDE 107 MMOL/L (98-107); CREATININE SERUM 0.55 MG/DL (0.60-1.30); GFR ESTIMATED > 60; GLUCOSE 103 MG/DL (70-105); POTASSIUM 3.6 MMOL/L (3.6-5.0); SODIUM 137 MMOL/L (135-145)
[2018-07-16 08:00] VITALS: BP 101/54
[2018-07-16] MEDS: FUROSEMIDE 20 MG (LASIX) TAB PO SCH ×2 (09:00→12:13)
[2018-07-16] MEDS: RIFAXIMIN 550 MG TABLET (XIFAXAN) PO SCH ×2 (09:00→19:34)
[2018-07-16] MEDS: NICOTINE PATCH REMOVAL TP SCH (09:00)
[2018-07-16] MEDS: NS IV 1000 ML 1,000 ML IV SCH ×3 (09:00→23:38)
[2018-07-16] MEDS: NICOTINE 7 MG (NICODERM) PATCH TD SCH (09:00)
[2018-07-16] MEDS: hydrOXYzine (VISTARIL) 25 MG CAP PO PRN (09:47)
[2018-07-16] MEDS: morphine ER 15 MG (MS CONTIN) TAB PO PRN (10:18)
--- NOTE | 2018-07-16 11:54 | Progress Note ---
Subjective Date Seen by a Provider: Jul 16, 2018 Time Seen by a Provider: 09:45 Subjective/Events-last exam PT COMPLAINS OF SHORTNESS OF BREATH - BACK AND LEG PAIN. PT'S SISTER IN THE ROOM WITH HIM AT TIME OF EXAM - THEY ARE IN AGREEMENT WITH SENIOR CARE PLACEMENT FOR PT ON DISCHARGE Review of Systems General: Fatigue HEENT: No Head Aches Pulmonary: Dyspnea; No Cough Cardiovascular: No: Chest Pain, Palpitations Gastrointestinal: No: Nausea, Abdominal Pain Genitourinary: No Dysuria Musculoskeletal: back pain, leg pain Neurological: Weakness, Confusion (INTERMITTENT) Focused Exam Lactate Level 07/14/18 16:22: Lactic Acid Level 2.60*H 07/14/18 19:38: Lactic Acid Level 2.31*H Objective Exam Last Set of Vital Signs Vital Signs Date Time Temp Pulse Resp B/P (MAP) Pulse Ox O2 Delivery O2 Flow Rate FiO2 07/16/18 08:00 97.3 70 20 101/54 (70) 94 Room Air Capillary Refill : I&O Intake and Output 07/15/18 23:59 Intake Total 5254.5 ml Output Total 3 ml Balance 5251.5 ml Intake Oral 1820 ml IV Total 3434.5 ml Output Urine Total 3 ml # Voids 6 General: Alert, Oriented X3, Cooperative HEENT: Atraumatic, PERRLA Neck: Supple Lungs: Clear to Auscultation Heart: Regular Rate Abdomen: Normal Bowel Sounds, Soft, No Tenderness Extremities: No Cyanosis Skin: Other (ERYTHEMA, MACERATION, EXTENSIVE OPEN WOUNDS ON BILATERAL LOWER EXTREMITIES) Neuro: Normal Speech, Strength at 5/5 X4 Ext, Cranial Nerves 3-12 NL Psych/Mental Status: Mental Status NL Results Lab Laboratory Tests 07/15/18 16:01: Glucometer 230H 07/15/18 21:36: Glucometer 152H 07/16/18 06:00: White Blood Count 2.2L, Red Blood Count 3.02L, Hemoglobin 8.0L, Hematocrit 26L, Mean Corpuscular Volume 86, Mean Corpuscular Hemoglobin 27, Mean Corpuscular Hemoglobin Concent 31L, Red Cell Distribution Width 17.4H, Platelet Count 31*L, Mean Platelet Volume , Sodium Level 137, Potassium Level 3.6, Chloride Level 107 , Carbon Dioxide Level 24, Anion Gap 6, Blood Urea Nitrogen 11, Creatinine 0.55L , Estimat Glomerular Filtration Rate > 60, BUN/Creatinine Ratio 20, Glucose Level 103, Calcium Level 7.4L 07/16/18 06:03: Glucometer 102 07/16/18 11:29: Glucometer 181H Microbiology 07/14/18 Blood Culture - Preliminary, Resulted No growth 07/14/18 Gram Stain - Final, Resulted 07/14/18 Wound Culture - Preliminary, Resulted Culture In Progress Assessment/Plan Assessment/Plan Assess & Plan/Chief Complaint CELLULITIS BILATERAL LOWER EXTREMITIES HEPATOCELLULAR CARCINOMA METASTATIC TO LUNGS HX OF HEPATITIS C S/P CLEARANCE OF INFECTION CIRRHOSIS HYPERTENSION DIABETES MELLITUS CHRONIC PAIN SYNDROME CHRONIC ANXIETY ESOPHAGEAL REFLUX COPD TOBACCOISM CELLULITIS BILATERAL LOWER EXTREMITIES - UNCERTAIN TO REASON FOR ACUTE SKIN CHANGES - CULTURE PENDING - GRAM POSITIVE ORGANISMS - PT DOES NOT HAVE SEPSIS DESPITE ELEVATED LACTIC ACID - HE HAS CHRONIC CIRRHOSIS WITH CHRONIC LIVER FAILURE WHICH HAS CAUSED ELEVATED LACTIC ACID LEVELS. HEPATOCELLULAR CARCINOMA METASTATIC TO LUNGS - SUPPORTIVE CARE ONLY AT THIS TIME. HX OF HEPATITIS C S/P CLEARANCE OF INFECTION CIRRHOSIS - CHRONIC - SUPPORTIVE CARE AT THIS TIME HYPERTENSION - RESUME HOME MEDICATIONS DIABETES MELLITUS - RESTART HOME MEDICATIONS, FSBS ACHS AND SLIDING SCALE B CHRONIC PAIN SYNDROME - RESUMED HOME REGIMEN CHRONIC ANXIETY AND DEPRESSION - RESUME HOME REGIMEN ESOPHAGEAL REFLUX - RESTART PANTOPRAZOLE COPD - RESTART BREATHING TREATMENTS TOBACCOISM - NICODERM CQ PLANNING ON PLACEMENT OF PATIENT AT [facility] - [facility]ENICE ON DISCHARGE Clinical Quality Measures Admission Status Admission Dx CELLULITIS BILATERAL LOWER EXTREMITIES HEPATOCELLULAR CARCINOMA METASTATIC TO LUNGS HX OF HEPATITIS C S/P CLEARANCE OF INFECTION CIRRHOSIS HYPERTENSION DIABETES MELLITUS CHRONIC PAIN SYNDROME CHRONIC ANXIETY ESOPHAGEAL REFLUX COPD TOBACCOISM DVT/VTE Risk/Contraindication: Risk Factor Score Per Nursin RFS Level Per Nursing on Admit: 4+=Very High Contraindications-Pharm: Other *list below* Contraindications-Mechi: Other *list below* Other: gross wounds on lower legs, cannot place compression or scds, waiting on labs before ordering BRITTANY Crocker MD Jul 16, 2018 11:54
[2018-07-16] MEDS: VENlafaxine XR 75 MG (EFFEXOR XR) CAP PO SCH (12:13)
[2018-07-16] MEDS: KCL 20 MEQ TAB (K-DUR) PO SCH (12:13)
[2018-07-16] MEDS ORDERED: morphine ER 15 MG (MS CONTIN) TAB PO PRN (13:00)
[2018-07-16] MEDS: morphine IMMEDIATE RELEASE 15 MG TABLET PO PRN (13:54)
[2018-07-16] MEDS ORDERED: TROUGH ORDER-PHARMACY XX NR (15:00)
[2018-07-16] MEDS: RT-ALBUTEROL SULF 2.5 MG/3 ML PRE-MIX VIAL INH SCH ×3 (15:19→19:56)
[2018-07-16 15:50] VITALS: BP 110/56
[2018-07-16] MEDS: inSUlin DETERMIR 1 UNIT/0.01 ML (LEVEMIR) CHARGE PER UNIT SQ SCH (17:28)
[2018-07-16] MEDS: traZODone 50 MG (DESYREL) TAB PO SCH (19:34)
[2018-07-16] MEDS: MIRTAZAPINE 15 MG (REMERON) TAB PO SCH (19:34)
[2018-07-17] VITALS: BP 116/60
[2018-07-17] MEDS: MEROPENEM 500 MG in NS (IVPB) 100 ML IV SCH ×5 (00:24→23:26)
[2018-07-17] MEDS: VANCOMYCIN 1,750 MG/NS 500 ML IVPB IV SCH ×4 (04:05→16:10)
[2018-07-17] MEDS: LACTOBACILLUS ACIDOPHILUS (PROBIOTIC) CAPSULE PO SCH ×3 (05:11→17:36)
[2018-07-17] MEDS: PANTOPRAZOLE 20 MG TABLET (PROTONIX) PO SCH (05:11)
[2018-07-17 05:19] LABS: HEMOGLOBIN 8.2 G/DL (13.3-17.7); MEAN PLATELET VOLUME 13.2 FL (7.4-10.4); RED BLOOD COUNT 3.06 10^6/uL (4.35-5.85); RED CELL DISTRIBUTION WIDTH 17.7 % (10.0-14.5); WHITE BLOOD COUNT 2.7 10^3/uL (4.3-11.0)
[2018-07-17 05:35] LABS: BUN/CREATININE RATIO 18; CALCIUM 7.3 MG/DL (8.5-10.1); CARBON DIOXIDE 24 MMOL/L (21-32); CHLORIDE 108 MMOL/L (98-107); GFR ESTIMATED > 60; GLUCOSE 106 MG/DL (70-105); POTASSIUM 3.7 MMOL/L (3.6-5.0); SODIUM 138 MMOL/L (135-145)
[2018-07-17] MEDS: inSUlin ASPART (NovoLOG) 1 UNIT/0.01 ML (CHARGE PER UNIT) SC SCH ×4 (05:49→21:33)
[2018-07-17] MEDS: RT-ALBUTEROL SULF 2.5 MG/3 ML PRE-MIX VIAL INH SCH ×3 (06:33→20:11)
[2018-07-17 08:00] VITALS: BP 118/62
[2018-07-17] MEDS: hydrOXYzine (VISTARIL) 25 MG CAP PO PRN ×2 (08:25→20:02)
[2018-07-17] MEDS: FUROSEMIDE 20 MG (LASIX) TAB PO SCH ×2 (08:25→12:06)
[2018-07-17] MEDS: RIFAXIMIN 550 MG TABLET (XIFAXAN) PO SCH ×2 (08:25→19:58)
[2018-07-17] MEDS: NICOTINE 7 MG (NICODERM) PATCH TD SCH (08:26)
[2018-07-17] MEDS: NICOTINE PATCH REMOVAL TP SCH (08:26)
--- NOTE | 2018-07-17 10:30 | Progress Note-Hospitalist ---
Subjective HPI/CC On Admission Date Seen by Provider: Jul 17, 2018 Time Seen by Provider: 10:00 Subjective/Events-last exam Patient about the same Chronic illnesses will require placement at [facility] Thursday HLIVF today IV abx maintained and tolerated Review of Systems General: Fatigue Musculoskeletal: leg pain Focused Exam Lactate Level 07/14/18 16:22: Lactic Acid Level 2.60*H 07/14/18 19:38: Lactic Acid Level 2.31*H Objective Exam Vital Signs Vital Signs Date Time Temp Pulse Resp B/P (MAP) Pulse Ox O2 Delivery O2 Flow Rate FiO2 07/17/18 15:32 97.9 75 14 112/69 (83) 95 Room Air Capillary Refill : General Appearance: No Apparent Distress, WD/WN, Chronically ill Respiratory: Chest Non Tender, Lungs Clear, Normal Breath Sounds, No Accessory Muscle Use, No Respiratory Distress Cardiovascular: Regular Rate, Rhythm, No Edema, No Gallop, No JVD, No Murmur, Normal Peripheral Pulses Neurologic/Psychiatric: Alert, No Motor/Sensory Deficits, Normal Mood/Affect, Other (poor recall) Results/Procedures Lab Laboratory Tests 07/17/18 05:15 Patient resulted labs reviewed. Assessment/Plan Assessment and Plan Assess & Plan/Chief Complaint Assessment per PCP: CELLULITIS BILATERAL LOWER EXTREMITIES acute on chronic HEPATOCELLULAR CARCINOMA METASTATIC TO LUNGS - SUPPORTIVE CARE ONLY AT THIS TIME. HX OF HEPATITIS C S/P CLEARANCE OF INFECTION CIRRHOSIS - CHRONIC - SUPPORTIVE CARE AT THIS TIME HYPERTENSION - RESUME HOME MEDICATIONS DIABETES MELLITUS - RESTART HOME MEDICATIONS, FSBS ACHS AND SLIDING SCALE B CHRONIC PAIN SYNDROME - RESUMED HOME REGIMEN CHRONIC ANXIETY AND DEPRESSION - RESUME HOME REGIMEN ESOPHAGEAL REFLUX - RESTART PANTOPRAZOLE COPD - RESTART BREATHING TREATMENTS TOBACCOISM - NICODERM CQ PLANNING ON PLACEMENT OF PATIENT AT [facility] ON DISCHARGE Plan: HLIVF IV abx Poor prognosis overall Diagnosis/Problems Diagnosis/Problems (1) Cellulitis and abscess of left leg Status: Acute (2) Hepatocellular carcinoma Status: Chronic (3) Alcoholic dementia Status: Chronic Qualifiers: Dementia behavioral disturbance: without behavioral disturbance Qualified Codes: F10.27 - Alcohol dependence with alcohol-induced persisting dementia (4) Hepatitis C Status: Chronic Qualifiers: Viral hepatitis chronicity: unspecified Hepatic coma status: with hepatic coma Qualified Codes: B19.21 - Unspecified viral hepatitis C with hepatic coma (5) Chronic kidney disease (CKD) Status: Chronic Qualifiers: Chronic kidney disease stage: stage 3 (moderate) Qualified Codes: N18.3 - Chronic kidney disease, stage 3 (moderate) Clinical Quality Measures DVT/VTE Risk/Contraindication: Risk Factor Score Per Nursin RFS Level Per Nursing on Admit: 4+=Very High Contraindications-Pharm: Other *list below* Contraindications-Mechi: Other *list below* Other: gross wounds on lower legs, cannot place compression or scds, waiting on labs before ordering anticoag HELEN GAXIOLA DO Jul 17, 2018 10:29
[2018-07-17] MEDS: morphine IMMEDIATE RELEASE 15 MG TABLET PO PRN ×2 (12:06→17:40)
[2018-07-17] MEDS: KCL 20 MEQ TAB (K-DUR) PO SCH (12:06)
[2018-07-17] MEDS: VENlafaxine XR 75 MG (EFFEXOR XR) CAP PO SCH (12:06)
[2018-07-17 15:32] VITALS: BP 112/69
[2018-07-17] MEDS: inSUlin DETERMIR 1 UNIT/0.01 ML (LEVEMIR) CHARGE PER UNIT SQ SCH (17:35)
[2018-07-17] MEDS: MIRTAZAPINE 15 MG (REMERON) TAB PO SCH (19:58)
[2018-07-17] MEDS: traZODone 50 MG (DESYREL) TAB PO SCH (19:59)
[2018-07-17 23:44] VITALS: BP 110/57
[2018-07-18] MEDS: hydrOXYzine (VISTARIL) 25 MG CAP PO PRN ×2 (03:15→11:34)
[2018-07-18] MEDS: VANCOMYCIN 1,750 MG/NS 500 ML IVPB IV SCH ×4 (03:16→16:09)
[2018-07-18] MEDS: morphine ER 15 MG (MS CONTIN) TAB PO PRN (03:19)
[2018-07-18] MEDS: MEROPENEM 500 MG in NS (IVPB) 100 ML IV SCH ×4 (05:53→23:59)
[2018-07-18] MEDS: PANTOPRAZOLE 20 MG TABLET (PROTONIX) PO SCH (05:54)
[2018-07-18] MEDS: LACTOBACILLUS ACIDOPHILUS (PROBIOTIC) CAPSULE PO SCH ×3 (05:54→17:14)
[2018-07-18] MEDS: inSUlin ASPART (NovoLOG) 1 UNIT/0.01 ML (CHARGE PER UNIT) SC SCH ×4 (06:06→21:27)
[2018-07-18 06:07] LABS: HEMATOCRIT 27 % (40-54); HEMOGLOBIN 8.4 G/DL (13.3-17.7); MEAN CORPUSCULAR HEMOGLOBIN 26 PG (25-34); MEAN CORPUSCULAR HGB CONC 31 G/DL (32-36); MEAN CORPUSCULAR VOLUME 86 FL (80-99); RED BLOOD COUNT 3.18 10^6/uL (4.35-5.85); RED CELL DISTRIBUTION WIDTH 17.1 % (10.0-14.5)
[2018-07-18 06:08] LABS: PLATELET COUNT 35 10^3/uL (130-400)
[2018-07-18 06:24] LABS: BUN/CREATININE RATIO 17; CALCIUM 7.3 MG/DL (8.5-10.1); CARBON DIOXIDE 25 MMOL/L (21-32); CHLORIDE 105 MMOL/L (98-107); GFR ESTIMATED > 60; GLUCOSE 137 MG/DL (70-105); POTASSIUM 3.6 MMOL/L (3.6-5.0); SODIUM 136 MMOL/L (135-145)
[2018-07-18] MEDS: RT-ALBUTEROL SULF 2.5 MG/3 ML PRE-MIX VIAL INH SCH ×3 (07:02→19:52)
[2018-07-18 08:23] VITALS: BP 137/65
[2018-07-18] MEDS: RIFAXIMIN 550 MG TABLET (XIFAXAN) PO SCH ×2 (08:44→20:18)
[2018-07-18] MEDS: NICOTINE 7 MG (NICODERM) PATCH TD SCH (08:44)
[2018-07-18] MEDS: FUROSEMIDE 20 MG (LASIX) TAB PO SCH ×2 (08:44→11:34)
[2018-07-18] MEDS: NICOTINE PATCH REMOVAL TP SCH (08:44)
--- NOTE | 2018-07-18 11:30 | Progress Note-Hospitalist ---
Subjective HPI/CC On Admission Date Seen by Provider: Jul 18, 2018 Time Seen by Provider: 10:30 Subjective/Events-last exam Patient doing the same Overall feels stronger Hep-locked IV fluid yesterday Reports chronic pain Antibiotics tolerated Bowels are moving Review of Systems Musculoskeletal: leg pain Objective Exam Vital Signs Vital Signs Date Time Temp Pulse Resp B/P (MAP) Pulse Ox O2 Delivery O2 Flow Rate FiO2 07/18/18 08:23 Room Air 07/18/18 08:23 96.1 75 20 137/65 (89) 92 Capillary Refill : General Appearance: No Apparent Distress, WD/WN, Chronically ill Respiratory: Chest Non Tender, Lungs Clear, Normal Breath Sounds, No Accessory Muscle Use, No Respiratory Distress Cardiovascular: Regular Rate, Rhythm, No Edema, No Gallop, No JVD, No Murmur, Normal Peripheral Pulses Neurologic/Psychiatric: Alert, Oriented x3, No Motor/Sensory Deficits, Normal Mood/Affect Results/Procedures Lab Laboratory Tests 07/18/18 06:00 Patient resulted labs reviewed. Assessment/Plan Assessment and Plan Assess & Plan/Chief Complaint Assessment per PCP: CELLULITIS BILATERAL LOWER EXTREMITIES acute on chronic HEPATOCELLULAR CARCINOMA METASTATIC TO LUNGS - SUPPORTIVE CARE ONLY AT THIS TIME. HX OF HEPATITIS C S/P CLEARANCE OF INFECTION CIRRHOSIS - CHRONIC - SUPPORTIVE CARE AT THIS TIME HYPERTENSION - RESUME HOME MEDICATIONS DIABETES MELLITUS - RESTART HOME MEDICATIONS, FSBS ACHS AND SLIDING SCALE B CHRONIC PAIN SYNDROME - RESUMED HOME REGIMEN CHRONIC ANXIETY AND DEPRESSION - RESUME HOME REGIMEN ESOPHAGEAL REFLUX - RESTART PANTOPRAZOLE COPD - RESTART BREATHING TREATMENTS TOBACCOISM - NICODERM CQ PLANNING ON PLACEMENT OF PATIENT AT [facility] ON DISCHARGE Plan: HLIVF IV abx Poor prognosis overall Diagnosis/Problems Diagnosis/Problems (1) Cellulitis and abscess of left leg Status: Acute (2) Hepatocellular carcinoma Status: Chronic (3) Alcoholic dementia Status: Chronic Qualifiers: Dementia behavioral disturbance: without behavioral disturbance Qualified Codes: F10.27 - Alcohol dependence with alcohol-induced persisting dementia (4) Hepatitis C Status: Chronic Qualifiers: Viral hepatitis chronicity: unspecified Hepatic coma status: with hepatic coma Qualified Codes: B19.21 - Unspecified viral hepatitis C with hepatic coma (5) Chronic kidney disease (CKD) Status: Chronic Qualifiers: Chronic kidney disease stage: stage 3 (moderate) Qualified Codes: N18.3 - Chronic kidney disease, stage 3 (moderate) Clinical Quality Measures DVT/VTE Risk/Contraindication: Risk Factor Score Per Nursin RFS Level Per Nursing on Admit: 4+=Very High Contraindications-Pharm: Other *list below* Contraindications-Mechi: Other *list below* Other: gross wounds on lower legs, cannot place compression or scds, waiting on labs before ordering anticoag HELEN GAXIOLA DO Jul 18, 2018 11:30
[2018-07-18] MEDS: morphine IMMEDIATE RELEASE 15 MG TABLET PO PRN (11:34)
[2018-07-18] MEDS: VENlafaxine XR 75 MG (EFFEXOR XR) CAP PO SCH (11:34)
[2018-07-18] MEDS: KCL 20 MEQ TAB (K-DUR) PO SCH (11:34)
[2018-07-18 15:29] VITALS: BP 124/67
[2018-07-18] MEDS: inSUlin DETERMIR 1 UNIT/0.01 ML (LEVEMIR) CHARGE PER UNIT SQ SCH (17:13)
[2018-07-18] MEDS: traZODone 50 MG (DESYREL) TAB PO SCH (20:18)
[2018-07-18] MEDS: MIRTAZAPINE 15 MG (REMERON) TAB PO SCH (20:18)
[2018-07-19] VITALS: BP 116/64
[2018-07-19] MEDS: hydrOXYzine (VISTARIL) 25 MG CAP PO PRN (00:10)
[2018-07-19] MEDS: VANCOMYCIN 1,750 MG/NS 500 ML IVPB IV SCH ×4 (03:20→15:51)
[2018-07-19 04:00] VITALS: BP 159/70
[2018-07-19] MEDS: MEROPENEM 500 MG in NS (IVPB) 100 ML IV SCH ×3 (05:23→17:46)
[2018-07-19 05:38] LABS: HEMATOCRIT 25 % (40-54); HEMOGLOBIN 7.8 G/DL (13.3-17.7); MEAN CORPUSCULAR HEMOGLOBIN 27 PG (25-34); MEAN CORPUSCULAR HGB CONC 32 G/DL (32-36); MEAN CORPUSCULAR VOLUME 85 FL (80-99); RED BLOOD COUNT 2.93 10^6/uL (4.35-5.85); RED CELL DISTRIBUTION WIDTH 17.5 % (10.0-14.5); WHITE BLOOD COUNT 2.7 10^3/uL (4.3-11.0)
[2018-07-19 05:40] LABS: PLATELET COUNT 37 10^3/uL (130-400)
[2018-07-19] MEDS: inSUlin ASPART (NovoLOG) 1 UNIT/0.01 ML (CHARGE PER UNIT) SC SCH ×4 (05:41→21:25)
[2018-07-19 05:56] LABS: BUN/CREATININE RATIO 18; CALCIUM 7.4 MG/DL (8.5-10.1); CARBON DIOXIDE 26 MMOL/L (21-32); CHLORIDE 105 MMOL/L (98-107); CREATININE SERUM 0.55 MG/DL (0.60-1.30); GFR ESTIMATED > 60; GLUCOSE 121 MG/DL (70-105); POTASSIUM 3.5 MMOL/L (3.6-5.0); SODIUM 137 MMOL/L (135-145)
[2018-07-19] MEDS: RT-ALBUTEROL SULF 2.5 MG/3 ML PRE-MIX VIAL INH SCH ×2 (07:39→19:25)
[2018-07-19 08:00] VITALS: BP 113/73
[2018-07-19] MEDS: FUROSEMIDE 20 MG (LASIX) TAB PO SCH ×2 (09:19→11:16)
[2018-07-19] MEDS: NICOTINE 7 MG (NICODERM) PATCH TD SCH (09:19)
[2018-07-19] MEDS: PANTOPRAZOLE 20 MG TABLET (PROTONIX) PO SCH (09:19)
[2018-07-19] MEDS: LACTOBACILLUS ACIDOPHILUS (PROBIOTIC) CAPSULE PO SCH ×3 (09:19→16:45)
[2018-07-19] MEDS: NICOTINE PATCH REMOVAL TP SCH (09:19)
[2018-07-19] MEDS: RIFAXIMIN 550 MG TABLET (XIFAXAN) PO SCH ×2 (09:19→21:25)
--- NOTE | 2018-07-19 09:38 | Progress Note ---
Objective Exam Last Set of Vital Signs Vital Signs Date Time Temp Pulse Resp B/P (MAP) Pulse Ox O2 Delivery O2 Flow Rate FiO2 07/19/18 08:00 98 High Flow N/C 2.00 07/19/18 08:00 97.0 68 16 113/73 (86) Capillary Refill : I&O Intake and Output 07/19/18 00:00 Intake Total 1417.5 ml Balance 1417.5 ml Intake Oral 800 ml IV Total 617.5 ml # Voids 10 General: Alert, Oriented X3, Cooperative HEENT: Atraumatic, PERRLA Neck: Supple Lungs: Clear to Auscultation Heart: Regular Rate Abdomen: Normal Bowel Sounds, Soft, No Tenderness Extremities: No Cyanosis Skin: Other (ERYTHEMA, MACERATION, EXTENSIVE OPEN WOUNDS ON BILATERAL LOWER EXTREMITIES) Neuro: Normal Speech, Strength at 5/5 X4 Ext, Cranial Nerves 3-12 NL Psych/Mental Status: Mental Status NL Results Lab Laboratory Tests 07/18/18 11:22: Glucometer 186H 07/18/18 15:47: Glucometer 127H 07/18/18 21:23: Glucometer 159H 07/19/18 05:31: White Blood Count 2.7L, Red Blood Count 2.93L, Hemoglobin 7.8L, Hematocrit 25L, Mean Corpuscular Volume 85, Mean Corpuscular Hemoglobin 27, Mean Corpuscular Hemoglobin Concent 32, Red Cell Distribution Width 17.5H, Platelet Count 37*L, Mean Platelet Volume , Sodium Level 137, Potassium Level 3.5L, Chloride Level 105, Carbon Dioxide Level 26, Anion Gap 6, Blood Urea Nitrogen 10, Creatinine 0.55L, Estimat Glomerular Filtration Rate > 60, BUN/Creatinine Ratio 18, Glucose Level 121H, Calcium Level 7.4L 07/19/18 05:36: Glucometer 141H Microbiology 07/14/18 Blood Culture - Preliminary, Resulted No growth 07/14/18 Gram Stain - Final, Complete 07/14/18 Wound Culture - Final, Complete Usual Mixed Skin Zelda Assessment/Plan Assessment/Plan Assess & Plan/Chief Complaint CELLULITIS BILATERAL LOWER EXTREMITIES HEPATOCELLULAR CARCINOMA METASTATIC TO LUNGS HX OF HEPATITIS C S/P CLEARANCE OF INFECTION CIRRHOSIS HYPERTENSION DIABETES MELLITUS CHRONIC PAIN SYNDROME CHRONIC ANXIETY ESOPHAGEAL REFLUX COPD TOBACCOISM CELLULITIS BILATERAL LOWER EXTREMITIES - UNCERTAIN TO REASON FOR ACUTE SKIN CHANGES - CULTURE PENDING - GRAM POSITIVE ORGANISMS - PT DOES NOT HAVE SEPSIS DESPITE ELEVATED LACTIC ACID - HE HAS CHRONIC CIRRHOSIS WITH CHRONIC LIVER FAILURE WHICH HAS CAUSED ELEVATED LACTIC ACID LEVELS. HEPATOCELLULAR CARCINOMA METASTATIC TO LUNGS - SUPPORTIVE CARE ONLY AT THIS TIME. HX OF HEPATITIS C S/P CLEARANCE OF INFECTION CIRRHOSIS - CHRONIC - SUPPORTIVE CARE AT THIS TIME HYPERTENSION - RESUME HOME MEDICATIONS DIABETES MELLITUS - RESTART HOME MEDICATIONS, FSBS ACHS AND SLIDING SCALE B CHRONIC PAIN SYNDROME - RESUMED HOME REGIMEN CHRONIC ANXIETY AND DEPRESSION - RESUME HOME REGIMEN ESOPHAGEAL REFLUX - RESTART PANTOPRAZOLE COPD - RESTART BREATHING TREATMENTS TOBACCOISM - NICODERM PLANNING ON PLACEMENT OF PATIENT AT [facility] ON DISCHARGE Clinical Quality Measures Admission Status Admission Dx CELLULITIS BILATERAL LOWER EXTREMITIES HEPATOCELLULAR CARCINOMA METASTATIC TO LUNGS HX OF HEPATITIS C S/P CLEARANCE OF INFECTION CIRRHOSIS HYPERTENSION DIABETES MELLITUS CHRONIC PAIN SYNDROME CHRONIC ANXIETY ESOPHAGEAL REFLUX COPD TOBACCOISM DVT/VTE Risk/Contraindication: Risk Factor Score Per Nursin RFS Level Per Nursing on Admit: 4+=Very High Contraindications-Pharm: Other *list below* Contraindications-Mechi: Other *list below* Other: gross wounds on lower legs, cannot place compression or scds, waiting on labs before ordering anticoag BRITTANY RIOS MD Jul 19, 2018 09:38
[2018-07-19] MEDS ORDERED: FUROSEMIDE 40 MG/4 ML INJ (LASIX) IVP NR ×2 (09:45→16:00)
--- NOTE | 2018-07-19 10:45 | Oncology Consultation ---
Visit Information Visit Information Date of Admission Jul 14, 2018 at 15:15 Attending Physician Ayesha Lyn MD Admitting Physician Ayesha Lyn MD Chief Complaint Skin lesions, bilateral lower extremity cellulites, hepatocelllular carcinoma, ? immunotherapy related wounds/cellulites of the lower ext? Interval History Mr. Bedoya is a 62 year old white man known to me at cancer center for HepC, hepatocellular carcinoma with lung mets bilaterally, and esophageal varices s/p TIPS placement. He was initially diagnosed and treated at [facility] and recently noticed to have lung mets and was put on Sorafenib(Nexavar). Pt lives in [place]. [facility] sent pt here closer to home and to monitoring any side effects from the new treatment. He then progressed on Nexavar and was put on Opdivo immunotherapy in 12/2017. He was initially in every 2 weeks infusion at 240mg and was doing well. We then changed to monthly dose at 480mg since 05/2018. He had two doses of monthly injection doses, last one 07/08/2018. He presented to ER with bilateral leg swelling and redness. He was admitted on 07/15/2018 for IV antibiotic Meropenum and Vanco treatment. He has not responded to the IV antibiotics and wound culture only showed mix skin derek. Pt has more skin rash and lesions over his entire body now. Dr. Lyn called to see if patient has autoimmune related dermatitis and skin lesions. Pertinent PMH: 1. Hep C, genotype 1A, complted 24 weeks of Harvoni treatment 2014 with sustained viral response. No more intervention needed. 2. Hepatocelluar carcinoma, 10/2014, s/p microwave ablation 02/21/15 and TACE/MWA 12/28/15. AFP normal 3. Lung mets, biopsy approven hepatocellular carcinoma 01/2018 4. TIPS placement 2010 5. h/o hepatoencephalopathy 6. Liver failure, ascites. 7. DM 8. Gastroparesis 9. h/o Alcohol abuse. I consulted the patient on: 07/19/18 10:40 Time Seen by Provider: 15:48 Review of Systems Constitutional: see HPI Cardiovascular: no symptoms reported Gastrointestinal: no symptoms reported Genitourinary: no symptoms reported Skin: see HPI, lesions, rash Health Status Allergies Coded Allergies: midazolam (Verified Adverse Reaction, Unknown, 12/27/16) BEHAVORIAL Home Medications Albuterol Sulfate (Ventolin Hfa) 18 Gm Hfa.aer.ad, 2 PUFF IH Q6H PRN for SHORTNESS OF BREATH, (Reported) Cholecalciferol (Vitamin D3) (Vitamin D3) 2,000 Unit Capsule, 2,000 UNIT PO 1200 , (Reported) Desvenlafaxine Succinate (Desvenlafaxine Succinate ER) 100 Mg Tab.er.24h, 100 MG PO 1200, (Reported) Exenatide Microspheres (Bydureon Pen) 2 Mg/0.65 Ml Pen.injctr, 2 MG SC Th, ( Reported) Furosemide (Furosemide) 20 Mg Tablet, 20 MG PO 0800,1100, (Reported) Insulin Glargine,Hum.rec.anlog (Basaglar Kwikpen U-100) 100 Unit/1 Ml Insuln.pen , 14 UNITS SC 1700, (Reported) Ipratropium/Albuterol Sulfate (Iprat-Albut 0.5-3(2.5) mg/3 ml) 3 Ml Ampul.neb, 3 ML NEB TID PRN for SHORTNESS OF BREATH, (Reported) Mirtazapine (Mirtazapine) 15 Mg Tablet, 15 MG PO HS, (Reported) Morphine Sulfate (Morphine Sulfate ER) 15 Mg Tablet.er, 15 MG PO Q8H PRN for PAIN-SEVERE, (Reported) Nicotine (Nicotine Patch) 1 Each Patch.td24, 1 PATCH TD DAILY, (Reported) Pantoprazole Sodium (Pantoprazole Sodium) 20 Mg Tablet.dr, 20 MG PO DAILY, ( Reported) Potassium Chloride (Potassium Chloride) 20 Meq Tab.er.prt, 20 MEQ PO 1200, ( Reported) Rifaximin (Xifaxan) 550 Mg Tablet, 550 MG PO BID, (Reported) Rivastigmine (Exelon) 4.6 Mg Patch, 4.6 MG TD DAILY, (Reported) Trazodone HCl (Trazodone HCl) 50 Mg Tablet, 50 MG PO HS, (Reported) JSV-Dzeotn-Yfiogt Hx Patient Social History Marrital Status: Living Status: LIVES AT HOME ALONE Employed/Student: unemployed Alcohol Use: Denies Use Recreational Drug Use: No Smoking Status: Current Everyday Smoker Type Used: Cigarettes 2nd Hand Smoke Exposure: No Recent Foreign Travel: No Contact w/other who traveled: No Recent Infectious Disease Expo: No Recent Hopitalizations: Yes (OCTOBER 2016 AT ) Physical Abuse Screen: No Sexual Abuse: No Immunizations Up To Date Tetanus Booster (TDap): Less than 5yrs Date of Pneumonia Vaccine: Jul 10, 2008 Date of Influenza Vaccine: May 24, 2018 Family Medical History Significant Family History: Heart Disease, Hypertension Family History: Coronary thrombosis Myocardial infarction Physical Exam Vital Signs Vital Signs - First Documented 07/14/18 07/19/18 15:00 04:00 Temp 97.0 Pulse 73 Resp 18 B/P (MAP) 127/60 (82) Pulse Ox 100 O2 Delivery Room Air O2 Flow Rate 1.00 Capillary Refill : Height, Weight, BMI Height: 6'0.00" Weight: 225lbs. 0.0oz. 102.018570ir; 30.5 BMI Method:Estimated General Appearance: No Apparent Distress HEENT: PERRL/EOMI Neck: Non Tender, Supple Respiratory: Lungs Clear, No Accessory Muscle Use, No Respiratory Distress Cardiovascular: Regular Rate, Rhythm Gastrointestinal: Non Tender, Soft, Distended Extremity: Swelling, Other (Blister lesions and redness and open wounds) Neurologic/Psychiatric: Alert, Oriented x3 Skin: Erythema, Rash Data Review Labs Laboratory Tests 07/19/18 05:31 Laboratory Tests 07/16/18 16:01: Glucometer 267H 07/16/18 19:38: Glucometer 181H 07/17/18 05:15: White Blood Count 2.7L, Red Blood Count 3.06L, Hemoglobin 8.2L, Hematocrit 26L, Mean Corpuscular Hemoglobin Concent 31L, Red Cell Distribution Width 17.7H, Platelet Count 40L, Mean Platelet Volume 13.2H, Chloride Level 108H, Glucose Level 106H, Calcium Level 7.3L 07/17/18 11:12: Glucometer 186H 07/17/18 11:20: Glucometer 201H 07/17/18 15:34: Glucometer 220H 07/17/18 20:43: Glucometer 180H 07/18/18 05:34: Glucometer 141H 07/18/18 06:00: White Blood Count 3.0L, Red Blood Count 3.18L, Hemoglobin 8.4L, Hematocrit 27L, Mean Corpuscular Hemoglobin Concent 31L, Red Cell Distribution Width 17.1H, Platelet Count 35*L, Glucose Level 137H, Calcium Level 7.3L 07/18/18 11:22: Glucometer 186H 07/18/18 15:47: Glucometer 127H 07/18/18 21:23: Glucometer 159H 07/19/18 05:31: White Blood Count 2.7L, Red Blood Count 2.93L, Hemoglobin 7.8L, Hematocrit 25L, Red Cell Distribution Width 17.5H, Platelet Count 37*L, Potassium Level 3.5L, Creatinine 0.55L, Glucose Level 121H, Calcium Level 7.4L 07/19/18 05:36: Glucometer 141H 07/19/18 11:35: Glucometer 147H Impression & Plan Impression & Plan IMP: 1. Bilateral lower extremity cellulitis and blister wound, skin rash, wound culture negative, not responding to IV antibiotics as expected. Possible autoimmune related the reactions from Opdivo last dose 480mg given 07/08/18. 2. 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 AFP normal. Disease progressed on Sorafenib(Nexavar) and treatment changed to Opdivo at the end of 03/2018. 3. Hep C, genotype 1A, complted 24 weeks of Harvoni treatment 2014 with sustained viral response. No more intervention needed. 4. TIPS placement 2010, last evaluation a month ago 04/2018 and was told everything working and stable. 5. h/o hepatoencephalopathy 6. Liver failure, ascites. 7. DM 8. Gastroparesis 9. h/o Alcohol abuse. 10. Pancytopenia due to end stage of liver disease/failure. Plan: 1. Treat as autoimmune related dermatitis for now. [place] of high dose steroid, Solumedral 125mg q 6hrs for 2-3 days. Closely monitoring skin lesions. Then change to PO Prednisone. 2. Agree with current antibiotics for now. If patient respond to steroid treatment, we can stop the antibiotics 3. Monitoring blood sugar and BP while steroid. 4. Wound care consult if possible. Thank you for the consultation MICHI GARAY MD Jul 19, 2018 10:45
[2018-07-19] MEDS: morphine ER 15 MG (MS CONTIN) TAB PO PRN ×2 (11:35→21:30)
[2018-07-19] MEDS: morphine IMMEDIATE RELEASE 15 MG TABLET PO PRN (11:35)
[2018-07-19] MEDS: KCL 20 MEQ TAB (K-DUR) PO SCH (11:35)
[2018-07-19] MEDS: VENlafaxine XR 75 MG (EFFEXOR XR) CAP PO SCH (11:35)
[2018-07-19 12:00] VITALS: BP 119/57
[2018-07-19] MEDS: methylPREDNISolone 125 MG (Solu-MEDROL) VIAL IVP SCH ×2 (12:08→17:48)
[2018-07-19 16:15] VITALS: BP 130/61
[2018-07-19] MEDS: inSUlin DETERMIR 1 UNIT/0.01 ML (LEVEMIR) CHARGE PER UNIT SQ SCH (16:46)
[2018-07-19 19:00] VITALS: BP 151/77
[2018-07-19] MEDS: traZODone 50 MG (DESYREL) TAB PO SCH (21:25)
[2018-07-19] MEDS: MIRTAZAPINE 15 MG (REMERON) TAB PO SCH (21:25)
[2018-07-20 00:10] VITALS: BP 136/70
[2018-07-20] MEDS: MEROPENEM 500 MG in NS (IVPB) 100 ML IV SCH ×4 (00:11→19:00)
[2018-07-20] MEDS: methylPREDNISolone 125 MG (Solu-MEDROL) VIAL IVP SCH ×4 (00:11→19:00)
[2018-07-20 04:07] VITALS: BP 140/73
[2018-07-20] MEDS: VANCOMYCIN 1,750 MG/NS 500 ML IVPB IV SCH ×4 (04:53→16:55)
[2018-07-20] MEDS: PANTOPRAZOLE 20 MG TABLET (PROTONIX) PO SCH (06:12)
[2018-07-20] MEDS: LACTOBACILLUS ACIDOPHILUS (PROBIOTIC) CAPSULE PO SCH ×3 (06:13→16:56)
[2018-07-20] MEDS: inSUlin ASPART (NovoLOG) 1 UNIT/0.01 ML (CHARGE PER UNIT) SC SCH ×4 (06:13→21:48)
[2018-07-20 06:35] LABS: HEMATOCRIT 27 % (40-54); HEMOGLOBIN 8.4 G/DL (13.3-17.7); MEAN CORPUSCULAR HEMOGLOBIN 27 PG (25-34); MEAN CORPUSCULAR HGB CONC 31 G/DL (32-36); MEAN CORPUSCULAR VOLUME 85 FL (80-99); PLATELET COUNT 42 10^3/uL (130-400); RED BLOOD COUNT 3.17 10^6/uL (4.35-5.85); WHITE BLOOD COUNT 3.5 10^3/uL (4.3-11.0)
[2018-07-20 06:50] LABS: BUN/CREATININE RATIO 19; CALCIUM 7.9 MG/DL (8.5-10.1); CARBON DIOXIDE 26 MMOL/L (21-32); CHLORIDE 101 MMOL/L (98-107); GFR ESTIMATED > 60; GLUCOSE 324 MG/DL (70-105); SODIUM 134 MMOL/L (135-145)
[2018-07-20 08:00] VITALS: BP 151/72
[2018-07-20] MEDS: RT-ALBUTEROL SULF 2.5 MG/3 ML PRE-MIX VIAL INH SCH ×3 (08:36→19:29)
[2018-07-20] MEDS: FUROSEMIDE 40 MG/4 ML INJ (LASIX) IVP SCH ×2 (09:11→15:18)
[2018-07-20] MEDS: NICOTINE 7 MG (NICODERM) PATCH TD SCH (09:11)
[2018-07-20] MEDS: RIFAXIMIN 550 MG TABLET (XIFAXAN) PO SCH ×2 (09:11→21:48)
[2018-07-20] MEDS: NICOTINE PATCH REMOVAL TP SCH (09:11)
--- NOTE | 2018-07-20 10:44 | Progress Note ---
Objective Exam Last Set of Vital Signs Vital Signs Date Time Temp Pulse Resp B/P (MAP) Pulse Ox O2 Delivery O2 Flow Rate FiO2 07/20/18 08:36 90 Room Air 07/20/18 08:00 97.6 78 18 151/72 (98) 07/19/18 08:00 2.00 Capillary Refill : I&O Intake and Output 07/20/18 00:00 Intake Total 2997.5 ml Output Total 850 ml Balance 2147.5 ml Intake Oral 2280 ml IV Total 717.5 ml Output Urine Total 850 ml # Voids 6 General: Alert, Oriented X3, Cooperative HEENT: Atraumatic, PERRLA Neck: Supple Lungs: Clear to Auscultation Heart: Regular Rate Abdomen: Normal Bowel Sounds, Soft, No Tenderness Extremities: No Cyanosis Skin: Other (ERYTHEMA, MACERATION, EXTENSIVE OPEN WOUNDS ON BILATERAL LOWER EXTREMITIES) Neuro: Normal Speech, Strength at 5/5 X4 Ext, Cranial Nerves 3-12 NL Psych/Mental Status: Mental Status NL Results Lab Laboratory Tests 07/19/18 11:35: Glucometer 147H 07/19/18 16:22: Glucometer 278H 07/19/18 20:04: Glucometer 203H 07/20/18 05:17: Glucometer 284H 07/20/18 06:10: White Blood Count 3.5L, Red Blood Count 3.17L, Hemoglobin 8.4L, Hematocrit 27L, Mean Corpuscular Volume 85, Mean Corpuscular Hemoglobin 27, Mean Corpuscular Hemoglobin Concent 31L, Red Cell Distribution Width 17.0H, Platelet Count 42L, Mean Platelet Volume , Sodium Level 134L, Potassium Level 4.0, Chloride Level 101, Carbon Dioxide Level 26, Anion Gap 7, Blood Urea Nitrogen 13, Creatinine 0.70, Estimat Glomerular Filtration Rate > 60, BUN/Creatinine Ratio 19, Glucose Level 324H, Calcium Level 7.9L Microbiology 07/14/18 Blood Culture - Preliminary, Resulted No growth 07/14/18 Gram Stain - Final, Complete 07/14/18 Wound Culture - Final, Complete Usual Mixed Skin Zelda Assessment/Plan Assessment/Plan Assess & Plan/Chief Complaint CELLULITIS BILATERAL LOWER EXTREMITIES HEPATOCELLULAR CARCINOMA METASTATIC TO LUNGS HX OF HEPATITIS C S/P CLEARANCE OF INFECTION CIRRHOSIS HYPERTENSION DIABETES MELLITUS CHRONIC PAIN SYNDROME CHRONIC ANXIETY ESOPHAGEAL REFLUX COPD TOBACCOISM CELLULITIS BILATERAL LOWER EXTREMITIES - UNCERTAIN TO REASON FOR ACUTE SKIN CHANGES - CULTURE PENDING - GRAM POSITIVE ORGANISMS - PT DOES NOT HAVE SEPSIS DESPITE ELEVATED LACTIC ACID - HE HAS CHRONIC CIRRHOSIS WITH CHRONIC LIVER FAILURE WHICH HAS CAUSED ELEVATED LACTIC ACID LEVELS. HEPATOCELLULAR CARCINOMA METASTATIC TO LUNGS - SUPPORTIVE CARE ONLY AT THIS TIME. HX OF HEPATITIS C S/P CLEARANCE OF INFECTION CIRRHOSIS - CHRONIC - SUPPORTIVE CARE AT THIS TIME HYPERTENSION - RESUME HOME MEDICATIONS DIABETES MELLITUS - RESTART HOME MEDICATIONS, FSBS ACHS AND SLIDING SCALE B CHRONIC PAIN SYNDROME - RESUMED HOME REGIMEN CHRONIC ANXIETY AND DEPRESSION - RESUME HOME REGIMEN ESOPHAGEAL REFLUX - RESTART PANTOPRAZOLE COPD - RESTART BREATHING TREATMENTS TOBACCOISM - NICODERM CQ PLANNING ON PLACEMENT OF PATIENT AT [facility] ON DISCHARGE Clinical Quality Measures Admission Status Admission Dx CELLULITIS BILATERAL LOWER EXTREMITIES HEPATOCELLULAR CARCINOMA METASTATIC TO LUNGS HX OF HEPATITIS C S/P CLEARANCE OF INFECTION CIRRHOSIS HYPERTENSION DIABETES MELLITUS CHRONIC PAIN SYNDROME CHRONIC ANXIETY ESOPHAGEAL REFLUX COPD TOBACCOISM DVT/VTE Risk/Contraindication: Risk Factor Score Per Nursin RFS Level Per Nursing on Admit: 4+=Very High Contraindications-Pharm: Other *list below* Contraindications-Mechi: Other *list below* Other: gross wounds on lower legs, cannot place compression or scds, waiting on labs before ordering anticoBRITTANY Metzger MD Jul 20, 2018 10:44
[2018-07-20] MEDS: KCL 20 MEQ TAB (K-DUR) PO SCH (11:11)
[2018-07-20] MEDS: morphine IMMEDIATE RELEASE 15 MG TABLET PO PRN (11:11)
[2018-07-20] MEDS: VENlafaxine XR 75 MG (EFFEXOR XR) CAP PO SCH (11:11)
[2018-07-20 12:00] VITALS: BP 148/75
--- NOTE | 2018-07-20 14:25 | Physical Therapy Evaluation ---
PT Evaluation-General Medical Diagnosis Admission Date Jul 14, 2018 at 15:15 Medical Diagnosis: bilateral LE cellulitis Onset Date: Jul 14, 2018 Therapy Diagnosis Therapy Diagnosis: generalized weakness/debility Height/Weight Height (Feet): 6 Height (Inches): 0.00 Weight (Pounds): 225 Weight (Ounces): 0.0 Precautions Precautions/Isolations: Contact Isolation, Fall Prevention, Pressure Ulcer Weight Bear Status Right Lower Extremity: Right Full Weight Bearing Left Lower Extremity: Left Full Weight Bearing Referral Physician: Riki Reason for Referral: Evaluation/Treatment Medical History Pertinent Medical History: Alcoholism, COPD, DM, GERD, HTN, Smoking Additional Medical History liver cancer with mets to lung Current History direct admit from office secondary to bilateral LE cellulitis Reviewed History: Yes Social History Home: Apartment Current Living Status: Alone Entry Into Home: Level Entry Prior/Core FIM Prior Level of Function Therapy Code Descriptions/Definitions Functional [place] Measure: 0=Not Assessed/NA 4=Minimal Assistance 1=Total Assistance 5=Supervision or Setup 2=Maximal Assistance 6=Modified [place] 3=Moderate Assistance 7=Complete [place] Therapy Quality Codes: 6 Independent with activity with or without an assistive device 5 Patient requires set up or clean up by helper. Patient completes activity by themselves 4 Supervision or touching assist (CGA). [place] provide cues , steadying assist 3 The helper provides less than half the effort to complete the activity 2 The helper provides more than half the effort to complete the activity 1 Dependent. The helper does all the effort to complete an activity 7 Patient refused to complete or attempt activity 9 The patient did not perform the activity before the current illness or injury 88 Not attempted due to Medical conditions or safety concerns Functional Abilities and Goals: Independent: Patient completed the activities by him/herself, with or without an assistive device, with no assistance from a helper. Needed Some Help: Patient needed partial assistance from another person to complete activities. Dependent: A helper completed the activities for the patient. Unknown: Not Applicable: Bed Mobility: 7 Transfers (B,C,W/C) (FIM): 7 Gait: 7 Indoor Mobility (Ambulation): Independent Stairs: Independent Prior Devices Use: None PT Evaluation-Current Subjective Patient agrees to PT. Pain Numeric Pain Scale: 0-No Pain Location: No Pain Reported Objective Patient Orientation: Person, Time, Situation Problem Solving: Fair ROM/Strength ROM Lower Extremities bilateral LE WFL Strength Lower Extremities bilateral LE WFL Integumentary/Posture Integumentary actively bleeding wounds bilateral LE/it appears patient is scratching bilateral LE upon arrival. RN notified. Bowel Incontinence: No Bladder Incontinence: No Posture WFL Neuromuscular (Tone, Coordination, Reflexes) grossly intact Sensory Vision: Functional Hearing: Functional Sensation Right Lower Extremit: Impaired Sensation Left Lower Extremity: Impaired Transfers Therapy Code Descriptions/Definitions Functional [place] Measure: 0=Not Assessed/NA 4=Minimal Assistance 1=Total Assistance 5=Supervision or Setup 2=Maximal Assistance 6=Modified [place] 3=Moderate Assistance 7=Complete [place] Transfers (B, C, W/C) (FIM): 6 Scootin Rollin Supine to/from Sit: 6 Sit to/from Stand: 6 Gait Mode of Locomotion: Walk Anticipated Mode of Locomotion: Walk Gait (FIM): 1 Distance (FIM): 1=up to 49 ft Distance: 25' x2 Gait Level of Assist: 5 Gait Persons Needed: 1 Gait Assistive Device: None Comments/Gait Description PT recommends FWW for ambulation, however, patient declined use. Will continue to assess with treatment plan. Balance Sitting Static: Normal Sitting Dynamic: Normal Standing Static: Fair Standing Dynamic: Fair Assessment/Needs 62 y.o. male, will be seen short term by skilled PT to address functional mobility to ensure safe return to home. Patient declined FWW use with PT educating patient on importance of safety to prevent falls, however, patient continued to decline use. Rehab Potential: Guarded Post Rehab Potential-Barriers: compliance PT Short Term Goals Short Term Goals Time Frame: Jul 24, 2018 Transfers (B,C,W/C) (FIM): 7 Gait (FIM): 7 Gait Level of Assist: 7 Gait Assistive Device: None PT Plan Problem List Problem List: Activity Tolerance, Safety Treatment/Plan Treatment Plan: Continue Plan of Care Treatment Plan: Bed Mobility, Education, Functional Activity Court, Functional Strength, Gait, Safety, Therapeutic Exercise, Transfers Treatment Duration: Jul 24, 2018 Frequency: 5 times per week Estimated Hrs Per Day: .25 hour per day Patient and/or Family Agrees t: Yes Discharge Recommendations Therapy D/C Recommendations: Home Independently, Mcfp Placement, Correction (TCU/NH) Time/GCodes Time In: 1245 Time Out: 1303 Total Billed Treatment Time: 18 Total Billed Treatment 1 visit EVModC 18 min G Codes Necessary: UNIQUE Lopez PT Jul 20, 2018 14:25
[2018-07-20 16:00] VITALS: BP 122/65
--- NOTE | 2018-07-20 16:06 | Oncology Progress Note ---
Subjective Date Seen by a Provider: Jul 20, 2018 Time Seen by a Provider: 16:00 Subjective/Events-last exam Pt was put on high dose steroid yesterday. He is better today. Skin is less red. No more new rash lesions today. Data Review Labs Laboratory Tests 07/20/18 06:10 Laboratory Tests 07/17/18 20:43: Glucometer 180H 07/18/18 05:34: Glucometer 141H 07/18/18 06:00: White Blood Count 3.0L, Red Blood Count 3.18L, Hemoglobin 8.4L, Hematocrit 27L, Mean Corpuscular Hemoglobin Concent 31L, Red Cell Distribution Width 17.1H, Platelet Count 35*L, Glucose Level 137H, Calcium Level 7.3L 07/18/18 11:22: Glucometer 186H 07/18/18 15:47: Glucometer 127H 07/18/18 21:23: Glucometer 159H 07/19/18 05:31: White Blood Count 2.7L, Red Blood Count 2.93L, Hemoglobin 7.8L, Hematocrit 25L, Red Cell Distribution Width 17.5H, Platelet Count 37*L, Potassium Level 3.5L, Creatinine 0.55L, Glucose Level 121H, Calcium Level 7.4L 07/19/18 05:36: Glucometer 141H 07/19/18 11:35: Glucometer 147H 07/19/18 16:22: Glucometer 278H 07/19/18 20:04: Glucometer 203H 07/20/18 05:17: Glucometer 284H 07/20/18 06:10: White Blood Count 3.5L, Red Blood Count 3.17L, Hemoglobin 8.4L, Hematocrit 27L, Mean Corpuscular Hemoglobin Concent 31L, Red Cell Distribution Width 17.0H, Platelet Count 42L, Sodium Level 134L, Glucose Level 324H, Calcium Level 7.9L 07/20/18 10:38: Glucometer 360H Physical Exam Vital Signs Vital Signs - First Documented 07/14/18 07/19/18 15:00 04:00 Temp 97.0 Pulse 73 Resp 18 B/P (MAP) 127/60 (82) Pulse Ox 100 O2 Delivery Room Air O2 Flow Rate 1.00 Capillary Refill : Height, Weight, BMI Height: 6'0.00" Weight: 225lbs. 0.0oz. 102.980399ke; 30.5 BMI Method:Estimated General Appearance: No Apparent Distress HEENT: PERRL/EOMI, TMs Normal Neck: Non Tender, Supple Respiratory: Lungs Clear, No Accessory Muscle Use, No Respiratory Distress Cardiovascular: Regular Rate, Rhythm Gastrointestinal: Non Tender, Soft Extremity: Inflammation, Swelling, Other (Skin rash and lesions are less red today) Neurologic/Psychiatric: Alert, Oriented x3 Impression & Plan Impression & Plan IMP: 1. Bilateral lower extremity cellulitis and blister wound, skin rash, wound culture negative, not responding to IV antibiotics as expected. Possible autoimmune related the reactions from Opdivo last dose 480mg given 07/08/18. Day one on large dose of steroid. Skin is slightly better. No new lesions. 2. 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 AFP normal. Disease progressed on Sorafenib(Nexavar) and treatment changed to Opdivo at the end of 03/2018. 3. Hep C, genotype 1A, complted 24 weeks of Harvoni treatment 2014 with sustained viral response. No more intervention needed. 4. TIPS placement 2010, last evaluation a month ago 04/2018 and was told everything working and stable. 5. h/o hepatoencephalopathy 6. Liver failure, ascites. 7. DM 8. Gastroparesis 9. h/o Alcohol abuse. 10. Pancytopenia due to end stage of liver disease/failure. Plan: 1. Treat as autoimmune related dermatitis for now. Continue Solumedral 125mg q 6hrs for one more day. Then change to PO Prednisone 40mg daily with Protonix or Pepcid to protect GI track. Hold off Opdivo treatment. 2. Agree with current antibiotics for now. If patient respond to steroid treatment, we can stop the antibiotics in 1-2 days 3. Monitoring blood sugar and BP while steroid. Treat accordingly 4. Wound care consult if possible. Clinical Quality Measures DVT/VTE Risk/Contraindication: Risk Factor Score Per Nursin RFS Level Per Nursing on Admit: 4+=Very High Contraindications-Pharm: Other *list below* Contraindications-Mechi: Other *list below* Other: gross wounds on lower legs, cannot place compression or scds, waiting on labs before ordering anticoag XUN,SPAIN-MILVIA MD Jul 20, 2018 16:06
[2018-07-20] MEDS: inSUlin DETERMIR 1 UNIT/0.01 ML (LEVEMIR) CHARGE PER UNIT SQ SCH (16:56)
[2018-07-20 20:00] VITALS: BP 135/76
[2018-07-20] MEDS: MIRTAZAPINE 15 MG (REMERON) TAB PO SCH (21:48)
[2018-07-20] MEDS: traZODone 50 MG (DESYREL) TAB PO SCH (21:48)
[2018-07-21] VITALS: BP 120/61
[2018-07-21] MEDS: methylPREDNISolone 125 MG (Solu-MEDROL) VIAL IVP SCH ×2 (00:37→06:03)
[2018-07-21] MEDS: MEROPENEM 500 MG in NS (IVPB) 100 ML IV SCH ×2 (00:37→06:03)
[2018-07-21] MEDS: VANCOMYCIN 1,750 MG/NS 500 ML IVPB IV SCH ×2 (03:52)
[2018-07-21 04:00] VITALS: BP 145/82
[2018-07-21] MEDS: LACTOBACILLUS ACIDOPHILUS (PROBIOTIC) CAPSULE PO SCH (06:03)
[2018-07-21] MEDS: PANTOPRAZOLE 20 MG TABLET (PROTONIX) PO SCH (06:03)
[2018-07-21] MEDS: inSUlin ASPART (NovoLOG) 1 UNIT/0.01 ML (CHARGE PER UNIT) SC SCH (06:03)
[2018-07-21 06:15] LABS: HEMATOCRIT 25 % (40-54); HEMOGLOBIN 7.7 G/DL (13.3-17.7); MEAN CORPUSCULAR HEMOGLOBIN 26 PG (25-34); MEAN CORPUSCULAR HGB CONC 31 G/DL (32-36); MEAN CORPUSCULAR VOLUME 84 FL (80-99); PLATELET COUNT 40 10^3/uL (130-400); RED BLOOD COUNT 2.97 10^6/uL (4.35-5.85); RED CELL DISTRIBUTION WIDTH 17.4 % (10.0-14.5); WHITE BLOOD COUNT 3.1 10^3/uL (4.3-11.0)
[2018-07-21 06:38] LABS: BUN/CREATININE RATIO 25; CALCIUM 7.9 MG/DL (8.5-10.1); CARBON DIOXIDE 28 MMOL/L (21-32); CHLORIDE 102 MMOL/L (98-107); CREATININE SERUM 0.65 MG/DL (0.60-1.30); GFR ESTIMATED > 60; GLUCOSE 242 MG/DL (70-105); POTASSIUM 4.3 MMOL/L (3.6-5.0); SODIUM 135 MMOL/L (135-145)
[2018-07-21 07:48] VITALS: BP_SYST 101; BP_SYST 127; BP_DIAS 54; BP_DIAS 65
[2018-07-21] MEDS: RT-ALBUTEROL SULF 2.5 MG/3 ML PRE-MIX VIAL INH SCH (08:15)
[2018-07-21] MEDS: RIFAXIMIN 550 MG TABLET (XIFAXAN) PO SCH (09:03)
[2018-07-21] MEDS: NICOTINE 7 MG (NICODERM) PATCH TD SCH (09:03)
[2018-07-21] MEDS: FUROSEMIDE 40 MG/4 ML INJ (LASIX) IVP SCH (09:03)
[2018-07-21] MEDS: morphine ER 15 MG (MS CONTIN) TAB PO PRN (09:04)
[2018-07-21] MEDS: NICOTINE PATCH REMOVAL TP SCH (09:05)
--- NOTE | 2018-07-21 09:13 | Discharge Summary ---
Diagnosis/Chief Complaint Date of Admission Jul 14, 2018 at 15:15 Date of Discharge Discharge Date: Jul 21, 2018 Discharge Time: 0920 Reason Hospital Visit PT IS A 62 Y/O MALE WHO IS WELL KNOWN TO ME FROM CLINIC WITH HX OF HEPATOCELLULAR CARCINOMA, DIABETES MELLITUS, AND CHRONIC TOBACCOISM. HE APPARENTLY HAD BEEN FEELING FAIRLY WELL UNTIL THE PAST WEEK - HIS SISTERS NOTICED SWELLING AND WEEPING OF HIS LOWER LEGS, THEY BROUGHT HIM TO THE OFFICE TODAY WITH CONCERN FOR A LARGE WOUND ON HIS LEG ON THE LEFT. HIS SISTERS BROUGHT HIM IN TO THE OFFICE TODAY WITH CONCERN FOR HIS LEGS AND POSSIBLE NEED FOR ADMISSION. Discharge Summary Discharge Physical Examination Allergies: Coded Allergies: midazolam (Verified Adverse Reaction, Unknown, 12/27/16) BEHAVORIAL Vitals & I&Os Vital Signs Date Time Temp Pulse Resp B/P (MAP) Pulse Ox O2 Delivery O2 Flow Rate FiO2 07/21/18 08:15 98 Nasal Cannula 2.00 07/21/18 07:48 97.8 75 20 127/65 (85) General Appearance: Alert, Oriented X3, Cooperative HEENT: Atraumatic, PERRLA Respiratory: Clear to Auscultation Cardiovascular: Regular Rate Abdominal: Normal Bowel Sounds, Soft, No Tenderness Extremities: No Cyanosis Skin: Other (ERYTHEMA, MACERATION, EXTENSIVE OPEN WOUNDS ON BILATERAL LOWER EXTREMITIES) Neuro: Normal Speech, Strength at 5/5 X4 Ext, Cranial Nerves 3-12 NL Psych/Mental Status: Mental Status NL Hospital Course Pending Labs Laboratory Tests 07/21/18 05:00: Glucometer 253 07/21/18 06:10: White Blood Count 3.1, Red Blood Count 2.97, Hemoglobin 7.7, Hematocrit 25, Mean Corpuscular Volume 84, Mean Corpuscular Hemoglobin 26, Mean Corpuscular Hemoglobin Concent 31, Red Cell Distribution Width 17.4, Platelet Count 40, Mean Platelet Volume , Sodium Level 135, Potassium Level 4.3, Chloride Level 102 , Carbon Dioxide Level 28, Anion Gap 5, Blood Urea Nitrogen 16, Creatinine 0.65 , Estimat Glomerular Filtration Rate > 60, BUN/Creatinine Ratio 25, Glucose Level 242, Calcium Level 7.9 Discharge Instructions to patient/family Please see electronic discharge instructions given to patient. Discharge Medications Reviewed and agree with Discharge Medication list on patient's Discharge Instruction sheet Clinical Quality Measures DVT/VTE Risk/Contraindication: Risk Factor Score Per Nursin RFS Level Per Nursing on Admit: 4+=Very High Contraindications-Pharm: Other *list below* Contraindications-Mechi: Other *list below* Other: gross wounds on lower legs, cannot place compression or scds, waiting on labs before ordering BRITTANY Crocker MD Jul 21, 2018 09:13
== END 2018-07-21 09:15 | disposition swing bed (61) | DRG 603 ==
LOC: 4TH 14:51 → OBSVTOIN 15:15 → 4TH 07-16 11:34
PROVIDERS: ADMIT Family Medicine; ATTEND Family Medicine
DX: L03.115 Cellulitis of right lower limb (principal); L03.116 Cellulitis of left lower limb; L02.416 Cutaneous abscess of left lower limb; C22.0 Liver cell carcinoma; I85.10 Secondary esophageal varices without bleeding; C78.01 Secondary malignant neoplasm of right lung; C78.02 Secondary malignant neoplasm of left lung; F10.27 Alcohol dependence with alcohol-induced persisting dementia; Z66 Do not resuscitate; K74.60 Unspecified cirrhosis of liver; K72.10 Chronic hepatic failure without coma; D61.818 Other pancytopenia; L30.8 Other specified dermatitis; I12.9 Hypertensive chronic kidney disease with stage 1 through stage 4 chronic kidney disease, or unspecified chronic kidney disease; N18.3 Chronic kidney disease, stage 3 (moderate); E11.9 Type 2 diabetes mellitus without complications; J44.9 Chronic obstructive pulmonary disease, unspecified; K21.9 Gastro-esophageal reflux disease without esophagitis; G89.4 Chronic pain syndrome; M54.2 Cervicalgia; F17.210 Nicotine dependence, cigarettes, uncomplicated; F41.9 Anxiety disorder, unspecified; F32.9 Major depressive disorder, single episode, unspecified; R41.3 Other amnesia; K31.84 Gastroparesis; Z86.19 Personal history of other infectious and parasitic diseases; Z79.4 Long term (current) use of insulin; Z95.828 Presence of other vascular implants and grafts; Z60.2 Problems related to living alone
CPT/HCPCS: 36415; 80048; 80053; 80202; 82728; 82962; 83540; 83605; 85027; 87040; 87070; 87205; 94640; 94760

== ENCOUNTER 2018-07-21 08:52 | Inpatient (IN) | payer MEDICARE, MEDICAID ==
[~2018-07-21] VITALS: Ht 182.9 cm; Wt 102.1 kg
[~2018-07-21 08:52] MED LIST changes: +DESV100T16 PO; +EXEN2PEN SC; +INSU100I34 SC; +IPRA3AMP31 NEB; +MELA10CA2 PO; +NICO-588 TD; +PANT20TA3 PO; +RIVA1PAT TD
[2018-07-21] MEDS ORDERED: hydrOXYzine (VISTARIL) 25 MG CAP PO PRN (09:45)
--- NOTE | 2018-07-21 10:14 | Physical Therapy Evaluation ---
PT Evaluation-General Medical Diagnosis Admission Date Jul 21, 2018 at 10:05 Medical Diagnosis: bilateral LE cellulitis, weakness Onset Date: Jul 14, 2018 Therapy Diagnosis Therapy Diagnosis: impaired mobility, strength, endurnace, balance Height/Weight Height (Feet): 6 Height (Inches): 0.00 Weight (Pounds): 225 Weight (Ounces): 0.0 Referral Physician: Ayesha Lyn MD Reason for Referral: Evaluation/Treatment Medical History Pertinent Medical History: Alcoholism, COPD, DM, GERD, HTN, Smoking Current History direct admit from office secondary to bilateral LE cellulitis Reviewed History: Yes Social History Home: Apartment Current Living Status: Alone Entry Into Home: Level Entry Prior/Core FIM Prior Level of Function Therapy Code Descriptions/Definitions Functional [place] Measure: 0=Not Assessed/NA 4=Minimal Assistance 1=Total Assistance 5=Supervision or Setup 2=Maximal Assistance 6=Modified [place] 3=Moderate Assistance 7=Complete [place] Therapy Quality Codes: 6 Independent with activity with or without an assistive device 5 Patient requires set up or clean up by helper. Patient completes activity by themselves 4 Supervision or touching assist (CGA). [place] provide cues , steadying assist 3 The helper provides less than half the effort to complete the activity 2 The helper provides more than half the effort to complete the activity 1 Dependent. The helper does all the effort to complete an activity 7 Patient refused to complete or attempt activity 9 The patient did not perform the activity before the current illness or injury 88 Not attempted due to Medical conditions or safety concerns Functional Abilities and Goals: Independent: Patient completed the activities by him/herself, with or without an assistive device, with no assistance from a helper. Needed Some Help: Patient needed partial assistance from another person to complete activities. Dependent: A helper completed the activities for the patient. Unknown: Not Applicable: Bed Mobility: 7 Transfers (B,C,W/C) (FIM): 7 Gait: 7 Stairs: 7 Indoor Mobility (Ambulation): Independent Stairs: Independent Prior Devices Use: None PT Evaluation-Current Subjective Patient in bathroom for BM pre tx, will be working with patient when done, no complaints of pain. Pt/Family Goals to be independent at home Objective Patient Orientation: Person, Place, Situation ROM/Strength ROM Lower Extremities NT Strenght Lower Extremities NT due to cellulitis Neuromuscular (Tone, Coordination, Reflexes) NT Sensory Vision: Functional Hearing: Functional Sensation Right Lower Extremit: Impaired Sensation Left Lower Extremity: Impaired Transfers Therapy Code Descriptions/Definitions Functional [place] Measure: 0=Not Assessed/NA 4=Minimal Assistance 1=Total Assistance 5=Supervision or Setup 2=Maximal Assistance 6=Modified [place] 3=Moderate Assistance 7=Complete [place] Therapy Quality Codes: 6 Independent with activity with or without an assistive device 5 Patient requires set up or clean up by helper. Patient completes activity by themselves 4 Supervision or touching assist (CGA). [place] provide cues , steadying assist 3 The helper provides less than half the effort to complete the activity 2 The helper provides more than half the effort to complete the activity 1 Dependent. The helper does all the effort to complete an activity 7 Patient refused to complete or attempt activity 9 The patient did not perform the activity before the current illness or injury 88 Not attempted due to Medical conditions or safety concerns Transfers (B, C, W/C) (FIM): 6 Scootin Rollin Roll Left to Right (QC): 6 Supine to/from Sit: 6 Sit to/from Stand: 6 Sit to Lying (QC): 6 Lying to Sitting/Side of Bed(Q: 6 Sit to Stand (QC): 6 Chair/Pna-pt-Nfick Xfer(QC): 6 Gait Does the Patient Walk?: Yes Mode of Locomotion: Walk Anticipated Mode of Locomotion: Walk Gait (FIM): 1 Walk 10 feet (QC): 4 Distance: 20' Gait Level of Assist: 5 Gait Persons Needed: 1 Gait Assistive Device: None Comments/Gait Description Patient ambulated from the bathroom back to his bed. He refused to ambulate any further or to participate further with therapy he says due to leg pain. Nurse in room currently with pain meds. Balance Sitting Static: Normal Sitting Dynamic: Normal Standing Static: Fair Standing Dynamic: Fair Special Test Comments Patient slightly unsteady with ambulation but he refuses to use a rolling walker. Assessment/Needs Patient has impaired mobility, strength, endurance, balance. He refuses to use a walker for his balance, fall risk. Rehab Potential: Fair PT Furniture Upholsterer Goals Longterm Goals PT Furniture Upholsterer Goals Time Frame: Jul 28, 2018 Transfers (B,C,W/C) (FIM): 6 Sit to Lying (QC): 6 Lying-Sitting on Side/Bed(QC): 6 Sit to Stand (QC): 6 Rollin Roll Left to Right (QC): 6 Chair/Rnj-wt-Wxwbp Xfer(QC): 6 Gait (FIM): 2 Distance: 50' Walk 10 feet (QC): 4 Walk 10ft-Uneven Surface(QC): 4 Walk 50ft with 2 Turns (QC): 4 Gait Level of Assist: 5 Gait Assistive Device: None, FWW PT Plan Problem List Problem List: Activity Tolerance, Functional Strength, Safety, Balance, Gait, Transfer, ROM Treatment/Plan Treatment Plan: Continue Plan of Care Treatment Plan: Bed Mobility, Education, Functional Activity Court, Functional Strength, Gait, Safety, Therapeutic Exercise, Transfers Treatment Duration: Jul 28, 2018 Frequency: 6 times per week Estimated Hrs Per Day: .25 hour per day (15-30') Patient and/or Family Agrees t: Yes Safety Risks/Education Patient Education: Gait Training, Transfer Techniques, Correct Positioning, Safety Issues Teaching Recipient: Patient Teaching Methods: Demonstration, Discussion Response to Teaching: Reinforcement Needed Discharge Recommendations Plan Patient will perform bed mobility and transfer training, balance and endurance training, functional strengthening, stair training, gait training, and education , to improve functional mobility and independence at home. Therapy D/C Recommendations: Home w/ Family Support Time/GCodes Time In: 0945 Time Out: 1015 Total Billed Treatment Time: 30 Total Billed Treatment 1 visit EVM 20' FA 10' BRYON MILLS PT Jul 21, 2018 10:14
[2018-07-21] MEDS: inSUlin ASPART (NovoLOG) 1 UNIT/0.01 ML (CHARGE PER UNIT) SC SCH ×3 (11:26→21:14)
[2018-07-21] MEDS: VENlafaxine XR 75 MG (EFFEXOR XR) CAP PO SCH (11:26)
[2018-07-21] MEDS: methylPREDNISolone 125 MG (Solu-MEDROL) VIAL IVP SCH ×3 (11:26→23:47)
[2018-07-21] MEDS: KCL 20 MEQ TAB (K-DUR) PO SCH (11:27)
--- OUTSIDE RECORDS SUMMARY | 2018-07-21 13:00 | XMS REPORT | Encounter Summary ---
Author Author [facility] Organization [facility] Address Unknown Phone Unavailable Care Team Providers Care Supervisor [place] Name Role Phone Buster Erazo MD Unavailable Michelle Valencia MD Unavailable Jeffy Holbrook MD Unavailable Jass Paris MD Unavailable Lucy Guzmán LIFE INSURANCE UNDERWRITER Unavailable Tameka Juarez RN Unavailable Unavailable Ely Dunlap RN Unavailable Unavailable Mely Ford RN Unavailable Lisa Rae RN Unavailable Unavailable Promise Wiseman RN Unavailable Unavailable Mark Dixon MD Unavailable Radha Hung LIFE INSURANCE UNDERWRITER Unavailable Cecile Foote RN Unavailable Whitney Guy [...] 3 Ayesha Lyn MD PCP Encounter Details Care Team Description Date Type Department Mariaelena Robertson MD [address] [facility] [address] [place] [address] [phone] 06/23/2018 [facility] Encounter [facility] [address] [place] [address] Social History Date Tobacco Use Types Packs/Day Years Used Current Every Day Smoker Cigarettes 0.25 45 Smokeless Tobacco: Never Used Comments: trying to quit Alcohol Use Drinks/Week oz/Week Comments No quit '08; moderate alcohol intake prior (up to 8 drinks/week) Sex Assigned at Date Recorded Not on file Industry Job Start Date Occupation Not on file Not on file Not on file Travel End Travel History Travel Start No recent travel history available. as of this encounter Functional Status Date of Assessment Functional Status Response 02/11/2018 Does the patient have a hearing impairment: No 02/11/2018 Does the patient have a visual impairment: Yes 02/11/2018 Does the patient have impaired ambulation: Yes 02/11/2018 Does the patient have an activity of daily living No (ADL) impairment: 02/11/2018 Does the patient have an instrumental activity of Yes daily living (IADL) impairment: Date of Assessment Cognitive Status Response 02/11/2018 Does the patient have a cognitive impairment: No as of this encounter Medications at Time of Discharge Start Date End Date Medication Sig Dispensed Refills albuterol (VENTOLIN HFA, Inhale 1 Puff 0 PROAIR HFA) 90 by mouth mcg/actuation inhaler every 6 hours as needed for Wheezing. cholecalciferol (VITAMIN Take 2,000 0 D-3) 1,000 units Units by tabletIndications: OTC mouth daily. supplement Indications: OTC supplement desvenlafaxine(+) Take 50 mg by 0 (PRISTIQ) 50 mg PO tablet mouth daily. exenatide microspheres 2 Inject 0.65 0 mg/0.65 mL pnij mL under the skin every 7 days. 05/11/2018 furosemide (LASIX) 40 mg Take one 30 tablet 0 tabletIndications: dose tablet by increase. mouth daily. insulin detemir(+) Inject under 0 (LEVEMIR) 100 unit/mL the skin. soln (This was prescribed as an alternative to Lantus.) mirtazapine (REMERON) 15 Take 15 mg by 0 mg tablet mouth at bedtime daily. morphine SR (MS CONTIN; Take 15 mg by 0 ORAMORPH SR) 15 mg tablet mouth three times daily as needed omeprazole DR(+) Take 20 mg by 0 (PRILOSEC) 20 mg capsule mouth twice daily. potassium chloride SR Take 20 mEq 0 (K-DUR) 20 mEq tablet by mouth daily. 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 traZODone (DESYREL) 50 mg Take 50 mg by 0 tablet mouth at bedtime daily. as of this encounter Plan of Treatment Not on fileas of this encounter Visit Diagnoses Not on filein this encounter
--- OUTSIDE RECORDS SUMMARY | 2018-07-21 13:00 | XMS REPORT | Clinical Summary ---
Author Author [facility] Organization [facility] Address Unknown Phone Unavailable Care Team Providers Care Gusset Ripper Name Role Phone Buster Erazo MD Unavailable Michelle Valencia MD Unavailable Jeffy Holbrook MD Unavailable Jass Paris MD Unavailable Lucy Guzmán WOOL MIXER Unavailable Tameka Juarez RN Unavailable Unavailable Ely Dunlap RN Unavailable Unavailable Mely Ford RN Unavailable Lisa Rae RN Unavailable Unavailable Promise Wiseman RN Unavailable Unavailable Mark Dixon MD Unavailable Radha Hung WOOL MIXER Unavailable Cecile Foote RN Unavailable Whitney Guy [...] in the Health Information Management department at [phone] for further assistance in locating additional records.[facility] Allergies Comments Active Allergy Reactions Severity Noted Date Got a reaction to this med while in the hospital, pt doesn't know what reaction he got. -per pt Midazolam SEE COMMENTS Low 02/03/2017 Medications End Date Status Medication Sig Dispensed Refills Start Date Active desvenlafaxine(+) Take 50 mg by 0 (PRISTIQ) 50 mg PO tablet mouth daily. Active morphine SR (MS CONTIN; Take 15 mg by 0 ORAMORPH SR) 15 mg tablet mouth three times daily as needed Active traZODone (DESYREL) 50 mg Take 50 mg by 0 tablet mouth at bedtime daily. Active cholecalciferol (VITAMIN Take 2,000 0 D-3) 1,000 units Units by tabletIndications: OTC mouth daily. supplement Indications: OTC supplement Active potassium chloride SR Take 20 mEq 0 (K-DUR) 20 mEq tablet by mouth daily. Active omeprazole DR(+) Take 20 mg by 0 (PRILOSEC) 20 mg capsule mouth twice daily. Active albuterol (VENTOLIN HFA, Inhale 1 Puff 0 PROAIR HFA) 90 by mouth mcg/actuation inhaler every 6 hours as needed for Wheezing. Active rifAXIMin (XIFAXAN) 550 Take 1 Tab by 60 Tab 11 mg tabletIndications: End mouth twice 6 stage liver disease daily. (HCC), Hepatocellular carcinoma (HCC), S/P TIPS (transjugular intrahepatic portosystemic shunt), Hepatic encephalopathy (HCC) Active mirtazapine (REMERON) 15 Take 15 mg by 0 mg tablet mouth at bedtime daily. Active rivastigmine(+) (EXELON) Apply 1 Patch 0 4.6 mg/24 hr transdermal to top of patch skin as directed daily. Active exenatide microspheres 2 Inject 0.65 0 mg/0.65 mL pnij mL under the skin every 7 days. Active insulin detemir(+) Inject under 0 (LEVEMIR) 100 unit/mL the skin. soln (This was prescribed as an alternative to Lantus.) Active furosemide (LASIX) 40 mg Take one 30 tablet 0 tabletIndications: dose tablet by 8 increase. mouth daily. Active Problems Problem Noted Date Non-occlusive thrombus 09/30/2016 End-stage liver disease 05/10/2015 Hepatic encephalopathy 05/10/2015 Esophageal varices 05/10/2015 S/P TIPS (transjugular intrahepatic portosystemic shunt) 05/10/2015 Overview: Placed in 2010 Revision done in 11/2014 Type 2 diabetes mellitus with complication 05/10/2015 Tobacco use 05/10/2015 Anemia 05/10/2015 Umbilical hernia 04/17/2015 HCC (hepatocellular carcinoma) 02/21/2015 Overview: PMH: DM, end stage liver [...] ordered. Major depressive disorder, recurrent episode, moderate 03/22/2012 Resolved Problems Problem Noted Date Resolved Date End stage liver disease 03/19/2017 06/05/2017 Overview: Added automatically from request for surgery [id number] Hepatocellular carcinoma 09/23/2016 06/05/2017 Encounters Care Team Description Date Type Specialty Mariaelena Robertson MD 07/20/2018 Documentation Oncology Mariaelena Roebrtson MD HCC (hepatocellular carcinoma) (HCC) 06/23/2018 Office Visit Oncology Mariaelena Robertson MD 06/23/2018 Hospital Radiology Encounter Mariaelena Robertson MD 06/23/2018 Hospital Radiology Encounter Joseph Guzman, RN Results 06/15/2018 Telephone Hepatology Joseph Guzman, RN Results 06/15/2018 Telephone Hepatology Mariaelena Robertson MD Hepatocellular carcinoma (HCC) (Primary Dx) 06/09/2018 Orders Only Oncology Chris Granados End-stage liver disease (HCC) 06/03/2018 Orders Only Hepatology Joseph Guzman, RN End-stage liver disease (HCC) (Primary Dx) 06/03/2018 Orders Only Hepatology Mariaelena Robertson MD Cancer Follow up 05/31/2018 Telephone Oncology Mely Jaeger APRN Follow-up Phone Call (Labs done on 05/18) 05/27/2018 Telephone Hepatology Mariaelena Robertson MD Cancer Follow up 05/24/2018 Telephone Oncology Mely Jaeger APRN 05/20/2018 Documentation Hepatology Mely Jaeger APRN Other 05/19/2018 Telephone Hepatology Mariaelena Robertson MD Cancer Follow up 05/18/2018 Telephone Oncology Mariaelena Robertson MD Appointment Request 05/18/2018 Telephone Oncology Joseph Guzman RN HCC (hepatocellular carcinoma) (HCC) (Primary Dx); End-stage liver disease (HCC) 05/13/2018 Orders Only Hepatology Mely Jaeger APRN Other (return call) 05/11/2018 Telephone Hepatology Mely Jaeger APRN Worsening Symptoms 05/10/2018 Telephone Hepatology Nazia Huang APRN-NP Al-Rajabi, Raed, MD 05/03/2018 Hospital Oncology Encounter Nazia Huang APRN-NP Hepatocellular carcinoma (HCC) (Primary Dx); HCC (hepatocellular carcinoma) (HCC); End-stage liver disease (HCC) 05/03/2018 Office Visit Oncology Nazia Huang APRN-NP HCC (hepatocellular carcinoma) (HCC) (Primary Dx) 05/03/2018 Nurse Only Oncology Nazia Huang APRN-NP 05/03/2018 Orders Only Oncology Valeria Kessler PHARMD Chemotherapy Follow up 04/30/2018 Telephone Oncology Mariaelena Robertson MD 04/29/2018 Orders Only Oncology Nazia Huang APRN-NP 04/29/2018 Orders Only Oncology Joseph Guzman RN Results (04/14 US 04/14 & 04/22 Labs) 04/26/2018 Telephone Hepatology Nazia Huang APRN-NP 04/22/2018 Hospital Oncology Encounter Mariaelena Robertson MD Arnold, Sarah, Kate Hamilton, RT(R)(),LRT Jeffy Holbrook MD HCC (hepatocellular carcinoma) (HCC) 04/22/2018 Hospital Radiology Encounter from Last 3 Months Immunizations Name Dates Previously Given Next Due Tdap Vaccine 01/11/2009 Family History Medical History Relation Name Comments Heart Attack Father Diabetes Mother Hypertension Mother Cancer Sister Cancer Sister metastatic cervical cancer Relation Name Status Comments Father Mother Sister Sister Social History Date Tobacco Use Types Packs/Day [...] Travel Start No recent travel history available. Last Filed Vital Signs Time Taken Vital Sign Reading 06/23/2018 2:02 PM PHARMACY TECHNICIAN TRAINEE Blood Pressure 125/85 06/23/2018 2:02 PM PHARMACY TECHNICIAN TRAINEE Pulse 68 06/23/2018 2:02 PM PHARMACY TECHNICIAN TRAINEE Temperature 36.8 C (98.2 F) 06/23/2018 2:02 PM PHARMACY TECHNICIAN TRAINEE Respiratory Rate 18 06/23/2018 2:02 PM PHARMACY TECHNICIAN TRAINEE Oxygen Saturation 99% - Inhaled Oxygen - Concentration 06/23/2018 2:02 PM PHARMACY TECHNICIAN TRAINEE Weight 101.5 kg (223 lb 12.8 oz) 05/03/2018 9:58 AM CDT Height 182.9 cm (6' 0.01") 06/23/2018 2:02 PM PHARMACY TECHNICIAN TRAINEE Body Mass Index 30.35 Plan of Treatment Health Maintenance Due Date Last Done Comments PHYSICAL (COMPREHENSIVE) 1961 EXAM DILATED EYE EXAM 1972 FOOT EXAM 1972 MICROALBUMIN 1972 PNEUMONIA VACCINE (DM) 1972 SHINGLES RECOMBINANT 2004 VACCINE (1 of 2) HBA1C 12/03/2017 06/04/2017, 10/31/2015, 11/14/2014, Additional history exists INFLUENZA VACCINE 03/10/2018 08/20/2016, 05/16/2009 DTAP/TDAP VACCINES (2 - 01/11/2019 01/11/2009 Td) COLORECTAL CANCER 09/05/2020 09/05/2010, 07/11/2008, 06/09/2008 SCREENING HIV SCREENING Completed 01/08/2009 Implants Device Identifier Shelf Expiration Date Model / Serial / Lot Implanted Type Area Manufactur er [id number] 10/07/2016 [id number] / . / [id number] Dev Clsr 70cm 6fr Angsl Vip - Right: Groin ST MCKENNA [id number] MED Implanted: Qty: 1 on 12/28/2015 by Cristhian Ervin MD [id number] / . / NOT RECORDED Prtcl Embl 70-150um 2ml Lbl Vl Liver BIOCOMPATI Implanted: Qty: 2 on 12/28/2015 by Jeffy Henriquez MD INC-IR RADIOLOG [id number] 07/17/2019 [id number] / . / [id number] Stent Vascular 10mm 6fr 60mm 80cm Liver COOK Self Expanding Flexible - S. GRP:COOK Implanted: Qty: 1 on 09/23/2016 by Jeffy Holbrook MD [id number] 10/07/2018 [id number] / NA / [id number] Port Implantable 8 Float Point Unit Right: Chest CR Siom Intermediate - Sna Wall BARD:ACCES Implanted: Qty: 1 on 04/22/2018 by Yosvany Bruner MD Procedures Comments Procedure Name Priority Date/Time Associated Diagnosis CT CHEST W CONTRAST Routine 06/23/2018 Hepatocellular carcinoma 10:16 AM PHARMACY TECHNICIAN TRAINEE (HCC) CT ABDOMEN WO/W CONTRAST Routine 06/23/2018 Hepatocellular carcinoma 10:16 AM PHARMACY TECHNICIAN TRAINEE (HCC) POC CREATININE, RAD 06/23/2018 9:48 AM PHARMACY TECHNICIAN TRAINEE PROTIME INR (PT) Routine 06/23/2018 Hepatocellular carcinoma 9:46 AM PHARMACY TECHNICIAN TRAINEE (HCC) COMPREHENSIVE METABOLIC Routine 06/23/2018 Hepatocellular carcinoma PANEL 9:46 AM PHARMACY TECHNICIAN TRAINEE (HCC) CBC AND DIFF Routine 06/23/2018 Hepatocellular carcinoma 9:46 AM PHARMACY TECHNICIAN TRAINEE (HCC) ALPHA FETO PROTEIN (AFP) Routine 06/23/2018 Hepatocellular carcinoma 9:46 AM PHARMACY TECHNICIAN TRAINEE (HCC) BASIC METABOLIC PANEL Routine 06/02/2018 End-stage liver disease 10:30 AM CDT (HCC) COMPREHENSIVE METABOLIC Routine 05/03/2018 HCC (hepatocellular PANEL 9:46 AM CDT carcinoma) (HCC) CBC AND DIFF Routine 05/03/2018 HCC (hepatocellular 9:46 AM CDT carcinoma) (HCC) TSH WITH FREE T4 REFLEX Add on 04/22/2018 Cirrhosis of liver 11:29 AM CDT without ascites, unspecified hepatic cirrhosis type (HCC) COMPREHENSIVE METABOLIC Routine 04/22/2018 Cirrhosis of liver PANEL 11:29 AM CDT without ascites, unspecified hepatic cirrhosis type (HCC) PROTIME INR (PT) Routine 04/22/2018 Cirrhosis of liver 11:29 AM CDT without ascites, unspecified hepatic cirrhosis type (HCC) CBC AND DIFF Routine 04/22/2018 Cirrhosis of liver 11:29 AM CDT without ascites, unspecified hepatic cirrhosis type (HCC) IR CENTRAL VENOUS Routine 04/22/2018 HCC (hepatocellular CATHETER 10:34 AM CDT carcinoma) (HCC) POC GLUCOSE 04/22/2018 9:23 AM CDT from Last 3 Months Results * CT ABDOMEN WO/W CONTRAST (06/23/2018 10:16 AM PHARMACY TECHNICIAN TRAINEE) Impressions Performed At Chest: [facility] RAD RESULTS [...] Interface, Radiant Results - 06/23/2018 11:33 [address]ARMACY TECHNICIAN TRAINEE CT Chest and Abdomen Clinical Indication:62 years [...] on 06/23/2018 10:36 AM. Performing Organization Address [facility] Number [facility] RES[facility] * CT CHEST W CONTRAST (06/23/2018 10:16 AM PHARMACY TECHNICIAN TRAINEE) Impressions Performed At Chest: [facility] RAD RESULTS [...] Interface, Radiant Results - 06/23/2018 11:33 AM PHARMACY TECHNICIAN TRAINEE CT Chest and Abdomen Clinical Indication:62 years [...] on 06/23/2018 10:36 AM. Performing Organization Address City/[facility]/Zipcode Phone Number RAD RESULTS * POC CREATININE, RAD (06/23/2018 9:48 AM PHARMACY TECHNICIAN TRAINEE) Creatinine, POC 0.5 0.4 - 1.24 MG/DL [facility] Performing Organization Address City/[facility] Phone Number [facility] [address] [place] [address] * ALPHA FETO PROTEIN (AFP) (06/23/2018 9:46 AM PHARMACY TECHNICIAN TRAINEE) Alpha Feto Protein 2.4 0.0 - 15.0 NG/ML [facility] Specimen Blood Performing Organization Address [facility] Phone Number [facility] [address] [place] [address] * PROTIME INR (PT) (06/23/2018 9:46 AM PHARMACY TECHNICIAN TRAINEE) Only the most recent of 2 results within the time period is included. INR 1.3 (H) 0.8 - 1.2 [facility] Specimen Blood Performing Organization Address [facility] Phone Number [facility] [address] [place] [address] * CBC AND DIFF (06/23/2018 9:46 AM PHARMACY TECHNICIAN TRAINEE) Only the most recent of 3 results [...] [facility] Specimen Blood Performing Organization Address [facility] Phone Number [facility] [address] [place] [address] * COMPREHENSIVE METABOLIC PANEL (06/23/2018 9:46 AM PHARMACY TECHNICIAN TRAINEE) Only the most recent of 3 results [...] Blood Performing Organization Address City/State/Zipcode Phone Number [facility] [address] [place] [address] * BASIC METABOLIC PANEL (06/02/2018 10:30 AM CDT) Sodium 138 [facility] INTERFACE Potassium 3.9 LAB[facility] [...] Organization Address City/State/Zipcode Phone Number LABDE INTERFACE * TSH WITH FREE T4 REFLEX (04/22/2018 11:29 AM CDT) TSH 4.500 0.35 - 5.00 MCU/ML [facility] Performing Organization Address City/State/Zipcode Phone Number [facility] [address] [place] [address] * IR CENTRAL VENOUS CATHETER (04/22/2018 10:34 AM CDT) Impressions Performed At Successful image-guided placement of [...] documentation.The needle was exchanged for a 5 [place] coaxial dilator. The inner dilator and the wire were removed and an 0.035 Amplatz superstiff wire was advanced into the IVC. A 8 [place] peel-away sheath was placed. Attention was turned [...] The needle was exchanged for a 5 [place] coaxial dilator. The inner dilator and the wire were removed and an 0.035 Amplatz superstiff wire was advanced into the IVC. A 8 [place] peel-away sheath was placed. Attention was turned [...] RAD RESULTS * POC GLUCOSE (04/22/2018 9:23 AM CDT) Glucose, POC 151 (H) 70 - 100 MG/DL [facility] Performing Organization Address City/State/Zipcode Phone Number [facility] [address] [place] [address] from Last 3 Months Insurance Payer Benefit Subscriber ID Type Phone Address Plan / Group MEDICARE MEDICARE xxxxxxxxxxx Medicare PART A AND B [employer] [place] [facility] Medicaid Advance Directives Patient has advance care planning documents, and code status on file. For more information, please contact: [facility] [address] [place] [address] Date Inactivated Comments Code Status Date Activated 09/24/2016 1:54 PM Full Code 09/23/2016 11:34 AM Provider has discussed Code Status No, more discussion w/Patient or Family? needed 12/29/2015 5:46 PM Full Code 12/28/2015 6:34 PM Provider has discussed Code Status No, discussion not w/Patient or Family? necessary based on Dx 04/18/2015 12:08 PM Full Code 04/17/2015 4:44 PM Provider has discussed Code Status No, more discussion w/Patient or Family? needed 02/22/2015 2:56 PM Full Code 02/21/2015 5:29 PM Provider has discussed Code Status No, more discussion w/Patient or Family? needed 10/05/2010 5:05 AM Full Code 10/03/2010 9:45 AM Provider has discussed Code Status No, discussion not w/Patient or Family? necessary based on Dx
--- OUTSIDE RECORDS SUMMARY | 2018-07-21 13:00 | XMS REPORT | Encounter Summary ---
Author Author [facility] Organization [facility] Address Unknown Phone Unavailable Care Team Providers Care Streetcar Operator Name Role Phone Buster Erazo MD Unavailable Michelle Valencia MD Unavailable Jeffy Holbrook MD Unavailable Jass Paris MD Unavailable Lucy Guzmán ACID WASHER OPERATOR Unavailable Tameka Juarez RN Unavailable Unavailable Ely Dunlap RN Unavailable Unavailable Mely Ford RN Unavailable Lisa Rae RN Unavailable Unavailable Promise Wiseman RN Unavailable Unavailable Mark Dixon MD Unavailable Radha Hung ACID WASHER OPERATOR Unavailable Cecile Foote RN Unavailable Whitney [...] Description Date Type Department Mariaelena Robertson MD [address] [place] [address] [phone] 07/20/2018 Documentation [facility] [address] [place] [address] Social History Date Tobacco Use Types Packs/Day [...] cognitive impairment: No as of this encounter Progress Notes * Chaparrita Tobin, RN - 07/20/2018 3:20 PM INSOLE REINFORCER Spoke with pt's sister who reports they had to take him to local who then admitted him. Both legs were hurting, swollen and covered with a rash. They feel it is due to the Opdivo and have started him on steroids. Sister plans to send our clinic Pictures. She stated they plan to have him dc'd to a facility once he is dc'd from hospital. team notified. in this encounter Plan of Treatment Not on fileas of this encounter Visit Diagnoses Not on filein this encounter
--- OUTSIDE RECORDS SUMMARY | 2018-07-21 13:01 | XMS REPORT | Encounter Summary ---
Author Author [facility] Organization [facility] Address Unknown Phone Unavailable Care Team Providers Care Content Management Consultant Name Role Phone Buster Erazo MD Unavailable Michelle Valencia MD Unavailable Jeffy Holbrook MD Unavailable Jass Paris MD Unavailable Lucy Guzmán ENTRY LEVEL MACHINE OPERATOR Unavailable Tameka Juarez RN Unavailable Unavailable Ely Dunlap RN Unavailable Unavailable Mely Ford RN Unavailable Lisa Rae RN Unavailable Unavailable Promise Wiseman RN Unavailable Unavailable Mark Dixon MD Unavailable Radha Hung ENTRY LEVEL MACHINE OPERATOR Unavailable Cecile Foote RN Unavailable [...] Visit * Reason Comments Results Encounter Details Care Team Description Date Type Department Joseph Guzman RN Results 06/15/2018 Telephone [facility] [address] [place] [address] Social History Date Tobacco Use Types Packs/Day [...] cognitive impairment: No as of this encounter Miscellaneous Notes * Telephone Encounter - Joseph Guzman RN - 06/15/2018 10:23 AM MERRY GO ROUND ATTENDANT LV to call about lab results. Labs already ordered by another provider. * Telephone Encounter - Joseph Guzman RN - 06/15/2018 10:21 AM MERRY GO ROUND ATTENDANT ----- Message from Mely Jaeger APRN sent at 06/14/2018 11:02 AM MERRY GO ROUND ATTENDANT ----- BMP looks stable except for glucose is a little high. Contact pt's sister with results. Plan to repeat in 4 weeks. in this encounter Plan of Treatment Not on fileas of this encounter Visit Diagnoses Not on filein this encounter
--- OUTSIDE RECORDS SUMMARY | 2018-07-21 13:01 | XMS REPORT | Encounter Summary ---
Author Author [facility] Organization [facility] Address Unknown Phone Unavailable Care Team Providers Care Clam Bed Laborer Name Role Phone Buster Erazo MD Unavailable Michelle Valencia MD Unavailable Jeffy oHlbrook MD Unavailable Jass Paris MD Unavailable Lucy Guzmán SCRAP PILER Unavailable Tameka Juarez RN Unavailable Unavailable Ely Dunlap RN Unavailable Unavailable Mely Ford RN Unavailable Lisa Rae RN Unavailable Unavailable Promise Wiseman RN Unavailable Unavailable Mark Dixon MD Unavailable Radha Hung SCRAP PILER Unavailable Cecile Foote RN Unavailable Whitney Guy [...] 06/15/2018 Telephone [facility] [address] [place] [address] Social History Date Tobacco Use [...] Joseph Guzman RN - 06/15/2018 12:26 PM CREATIVE ARTS MUSIC THERAPIST Discussed results with sister. Heron Marcelo next week will get labs then. in this encounter Plan of Treatment Not on fileas of this encounter Visit Diagnoses Not on filein this encounter
--- OUTSIDE RECORDS SUMMARY | 2018-07-21 13:01 | XMS REPORT | Encounter Summary ---
Author Author [facility] Organization [facility] Address Unknown Phone Unavailable Care Team Providers Care Jacquard Loom Carpet Weaver Name Role Phone Buster Erazo MD Unavailable Michelle Valencia MD Unavailable Jeffy Holbrook MD Unavailable Jass Paris MD Unavailable Lucy Guzmán FILM BOOKER Unavailable Tameka Juarez RN Unavailable Unavailable Ely Dunlap RN Unavailable Unavailable Mely Ford RN Unavailable Lisa Rae RN Unavailable Unavailable Promise Wiseman RN Unavailable Unavailable Mark Dixon MD Unavailable Radha Hung FILM BOOKER Unavailable Cecile Foote RN Unavailable Whitney Guy [...] Care Team Description Date Type Department Joseph Guzman, RN End-stage liver disease (HCC) (Primary Dx) 06/03/2018 Orders Only [facility] [address] [place] [address] Social History Date Tobacco Use [...] cognitive impairment: No as of this encounter Plan of Treatment Not on fileas of this encounter Results * BASIC METABOLIC PANEL (06/02/2018 10:30 AM [...] Primary Other sequelae of chronic liver disease in this encounter
--- OUTSIDE RECORDS SUMMARY | 2018-07-21 13:01 | XMS REPORT | Encounter Summary ---
Author Author [facility] Organization [facility] Address Unknown Phone Unavailable Care Team Providers Care Head Of Sales And Marketing Name Role Phone Buster Erazo MD Unavailable Michelle Valencia MD Unavailable Jeffy Holbrook MD Unavailable Jass Paris MD Unavailable Lucy Guzmán PROVIDER RELATIONS REP Unavailable Tameka Juarez RN Unavailable Unavailable Ely Dunlap RN Unavailable Unavailable Mely Ford RN Unavailable Lisa Rae RN Unavailable Unavailable Promise Wiseman RN Unavailable Unavailable Mark Dixon MD Unavailable Radha Hung PROVIDER RELATIONS REP Unavailable Cecile Foote RN Unavailable Whitney Guy MA Unavailable Unavailable Ara Espitia RN Unavailable Unavailable Sandhya Alejandro MA Unavailable Unavailable Macy Bishop Unavailable Unavailable Betsey Tate RN Unavailable Unavailable Jose Carter RN Unavailable Unavailable Aixa Dugan RN Unavailable Unavailable Sara Gutierrez Unavailable Unavailable Mally Burkett RN Unavailable Unavailable Manan Mustafa MD Unavailable Kiana Goemz Unavailable Unavailable Melina Griffiths MD 3 Ayesha Lyn MD PCP Encounter Details Care Team Description Date Type Department Granados, Arah End-stage liver disease (HCC) 06/03/2018 Orders Only [facility] [address] [place] [address] Social History Date Tobacco Use [...] Treatment Not on fileas of this encounter Procedures Comments Procedure Name Priority Date/Time Associated Diagnosis BASIC METABOLIC PANEL Routine 06/02/2018 End-stage liver disease 10:30 AM CDT (HCC) in this encounter Results * BASIC METABOLIC [...] (HCC) Other sequelae of chronic liver disease in this encounter
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
--- OUTSIDE RECORDS SUMMARY | 2018-07-21 13:01 | XMS REPORT | Encounter Summary ---
Author Author [facility] Organization [facility] Address Unknown Phone Unavailable Care Team Providers Care Asset Protection Manager Name Role Phone Buster Erazo MD Unavailable Michelle Valencia MD Unavailable Jeffy Holbrook MD Unavailable Jass Paris MD Unavailable Lucy Guzmán ALMOND CUTTING MACHINE TENDER Unavailable Tameka Juarez RN Unavailable Unavailable Ely Dunlap RN Unavailable Unavailable Mely Ford RN Unavailable Lisa Rae RN Unavailable Unavailable Promise Wiseman RN Unavailable Unavailable Mark Dixon MD Unavailable Radha Hung ALMOND CUTTING MACHINE TENDER Unavailable Cecile Foote RN Unavailable Whitney Guy MA Unavailable Unavailable Ara Espitia RN Unavailable Unavailable Sandhya Alejandro MA Unavailable Unavailable Macy Bishop Unavailable Unavailable Betsey Tate RN Unavailable Unavailable Jose Carter RN Unavailable Unavailable Aixa Dugan RN Unavailable Unavailable Sara Gutierrez Unavailable Unavailable Mally Burkett RN Unavailable Unavailable Manan Mustafa MD Unavailable Kiana Gomez Unavailable Unavailable Melina Grfifiths MD 3 Ayesha Lyn MD PCP Encounter Details Care Team Description Date Type Department Mariaelena Robertson MD [address] [facility] [address] [place] [address] [phone] Hepatocellular carcinoma (HCC) (Primary Dx) 06/09/2018 Orders Only [facility] [address] [place], [place] [phone] Social History Date Tobacco Use Types Packs/Day [...] on fileas of this encounter Results * PROTIME INR (PT) (06/23/2018 9:46 AM VACUUM CLEANER REPAIRER) INR 1.3 (H) 0.8 - 1.2 [facility] Specimen Blood Performing Organization Address City/State/Zipcode Phone Number [facility] [address] [place] [address] * COMPREHENSIVE METABOLIC PANEL (06/23/2018 9:46 AM VACUUM CLEANER REPAIRER) Sodium 135 (L) 137 - 147 MMOL/L [...] Organization Address City/State/Zipcode Phone Number [facility] [address] [place] [address] * CBC AND DIFF (06/23/2018 9:46 AM VACUUM CLEANER REPAIRER) White Blood Cells 3.7 (L) 4.5 - [...] [facility] Specimen Blood Performing Organization Address City/[facility]/Zipcode Phone Number [facility] [address] [place] [address] * ALPHA FETO PROTEIN (AFP) (06/23/2018 9:46 AM VACUUM CLEANER REPAIRER) Alpha Feto Protein 2.4 0.0 - 15.0 NG/ML [facility] Specimen Blood Performing Organization Address City/[facility]/Zipcode Phone Number [facility] [address] [place] [address] in this encounter Visit Diagnoses Diagnosis Hepatocellular carcinoma (HCC) - Primary Malignant neoplasm of liver, primary in this encounter
--- OUTSIDE RECORDS SUMMARY | 2018-07-21 13:01 | XMS REPORT | Encounter Summary ---
Author Author [facility] Organization [facility] Address Unknown Phone Unavailable Care Team Providers Care Language Translator Name Role Phone Buster Erazo MD Unavailable Michelle Valencia MD Unavailable Jeffy Holbrook MD Unavailable Jass Paris MD Unavailable Lucy Guzmán CORE STICKER Unavailable Tameka Juarez RN Unavailable Unavailable Ely Dunlap RN Unavailable Unavailable Mely Ford RN Unavailable Lisa Rae RN Unavailable Unavailable Promise Wiseman RN Unavailable Unavailable Mark Dixon MD Unavailable Radha Hung CORE STICKER Unavailable Cecile Foote RN Unavailable Whitney Guy [...] Specialty Diagnoses / Procedures Al-Rajabi, Raed, MD [address] [facility] [address] [place] [address] Ct 1st fl Ko [address] [place] [address] No Auth Needed Radiology Diagnoses Hepatocellular carcinoma (HCC) P rocedures CT CHEST W CONTRAST CT ABDOMEN WO/W CONTRAST * Radiology Services (Routine) Referred By Contact Referred To Contact Status Reason Specialty Diagnoses / Procedures Mariaelena Robertson MD [address] [facility] [address] [place] [address] 1st fl Ko [address] [place] [address] No Auth Needed Radiology Diagnoses Hepatocellular carcinoma (HCC) P rocedures CT CHEST W CONTRAST CT ABDOMEN WO/W CONTRAST * Radiology Services (Routine) Referred By Contact Referred To Contact Status Reason Specialty Diagnoses / Procedures Mariaelena Robertson MD [address] [facility] [address] [place] [address] New Request Radiology Diagnoses Hepatocellular carcinoma (HCC) P rocedures CT ABDOMEN WO/W CONTRAST * Radiology Services (Routine) Referred By Contact Referred To Contact Status Reason Specialty Diagnoses / Procedures Mariaelena Robertson MD [address] [place] [address] New Request Radiology Diagnoses Hepatocellular carcinoma (HCC) P rocedures CT ABDOMEN WO/W CONTRAST Reason for Visit * Radiology Services (Routine) Referred By Contact Referred To Contact Status Reason Specialty Diagnoses / Procedures Mariaelena Robertson MD [address] [facility] [address] [place] [address] 1st fl Ko [address] [place] [address] No Auth Needed Radiology Diagnoses Hepatocellular carcinoma (HCC) P rocedures CT CHEST W CONTRAST CT ABDOMEN WO/W CONTRAST Encounter Details Care Team Description Date Type Department Mariaelena Robertson MD [address] [facility] [address] [place], [place] [phone] 06/23/2018 [facility] Encounter [facility] 1st fl [address] [place], [place] [phone] Social History Date Tobacco Use Types Packs/Day [...] Procedure Name Priority Date/Time Associated Diagnosis CT ABDOMEN WO/W CONTRAST Routine 06/23/2018 Hepatocellular carcinoma 10:16 AM PATIENT SAFETY TECH (HCC) CT CHEST W CONTRAST Routine 06/23/2018 Hepatocellular carcinoma 10:16 AM PATIENT SAFETY TECH (HCC) POC CREATININE, RAD 06/23/2018 9:48 AM PATIENT SAFETY TECH ALPHA FETO PROTEIN (AFP) Routine 06/23/2018 Hepatocellular carcinoma 9:46 AM PATIENT SAFETY TECH (HCC) PROTIME INR (PT) Routine 06/23/2018 Hepatocellular carcinoma 9:46 AM PATIENT SAFETY TECH (HCC) CBC AND DIFF Routine 06/23/2018 Hepatocellular carcinoma 9:46 AM PATIENT SAFETY TECH (HCC) COMPREHENSIVE METABOLIC Routine 06/23/2018 Hepatocellular carcinoma PANEL 9:46 AM PATIENT SAFETY TECH (HCC) in this encounter Results * CT CHEST W CONTRAST (06/23/2018 10:16 AM PATIENT SAFETY TECH) Impressions Performed At Chest: [facility] RESULTS [...] Interface, Radiant Results - 06/23/2018 11:33 AM PATIENT SAFETY TECH CT Chest and Abdomen Clinical Indication:62 years [...] CT ABDOMEN WO/W CONTRAST (06/23/2018 10:16 AM PATIENT SAFETY TECH) Impressions Performed At Chest: [facility] RESULTS [...] Interface, Radiant Results - 06/23/2018 11:33 AM PATIENT SAFETY TECH CT Chest and Abdomen Clinical Indication:62 years [...] on 06/23/2018 10:36 AM. Performing Organization Address [facility] Phone Number RAD RESULTS * POC CREATININE, RAD (06/23/2018 9:48 AM PATIENT SAFETY TECH) Creatinine, POC 0.5 0.4 - 1.24 MG/DL [facility] Performing Organization Address [facility] Phone Number MAIN LAB [address] [place] [address] * PROTIME INR (PT) (06/23/2018 9:46 AM PATIENT SAFETY TECH) INR 1.3 (H) 0.8 - 1.2 [facility] Specimen Blood Performing Organization Address [facility] Phone Number MAIN LAB [address] [place] [address] * COMPREHENSIVE METABOLIC PANEL (06/23/2018 9:46 AM PATIENT SAFETY TECH) Sodium 135 (L) 137 - 147 MMOL/L [...] Blood Performing Organization Address City/State/Zipcode Phone Number [facility] [address] [place] [address] * CBC AND DIFF (06/23/2018 9:46 AM PATIENT SAFETY TECH) White Blood Cells 3.7 (L) 4.5 - [...] Blood Performing Organization Address City/State/Zipcode Phone Number [facility] [address] [place] [address] * ALPHA FETO PROTEIN (AFP) (06/23/2018 9:46 AM PATIENT SAFETY TECH) Alpha Feto Protein 2.4 0.0 - 15.0 NG/ML [facility] Specimen Blood Performing Organization Address City/[facility]/Zipcode Phone Number [facility]IN LAB [address] [place] [address] in this encounter Visit Diagnoses Diagnosis Hepatocellular carcinoma (HCC) Malignant neoplasm of liver, primary in this encounter Administered Medications Action Date Dose Rate Site Medication Order MAR Action 06/23/2018 9:45 AM PATIENT SAFETY TECH 100 mL iohexol (OMNIPAQUE-350) 350 mg/mL Given injection 100 mL 100 mL, Intravenous, ONCE, 1 dose, Thu06/23/18 at 0945, NOTE: This is a HIGH ALERT Medication., 06/23/2018 9:45 AM PATIENT SAFETY TECH 50 mL sodium chloride PF 0.9% injection 50 mL Given 50 mL, Intravenous, ONCE, 1 dose, Thu06/23/18 at 0945, Intra-procedure (IR) in this encounter
--- OUTSIDE RECORDS SUMMARY | 2018-07-21 13:02 | XMS REPORT | Encounter Summary ---
Author Author [facility] Organization [facility] Address Unknown Phone Unavailable Care Team Providers Care Wave Guide Assembler Name Role Phone Buster Erazo MD Unavailable Michelle Valencia MD Unavailable Jeffy Holbrook MD Unavailable Jass Paris MD Unavailable Lucy Guzmán RADIOLOGY RECEPTIONIST Unavailable Tameka Juarez RN Unavailable Unavailable Ely Dunlap RN Unavailable Unavailable Mely Ford RN Unavailable Lisa Rae RN Unavailable Unavailable Promise Wiseman RN Unavailable Unavailable Mark Dixon MD Unavailable Radha Hung RADIOLOGY RECEPTIONIST Unavailable Cecile Foote RN Unavailable Whitney Guy [...] Details Care Team Description Date Type Department Nazia Huang, RADIOLOGY RECEPTIONIST-CVICU NURSE [address] [place] [address] [phone] 05/03/2018 Orders Only [facility] [address] [place] [address] Social History Date Tobacco Use Types Packs/Day [...]
--- OUTSIDE RECORDS SUMMARY | 2018-07-21 13:02 | XMS REPORT | Encounter Summary ---
Author Author [facility] Organization [facility] Address Unknown Phone Unavailable Care Team Providers Care Photographic Editor Name Role Phone Buster Erazo MD Unavailable Michelle Valencia MD Unavailable Jeffy Holbrook MD Unavailable Jass Paris MD Unavailable Lucy Guzmán BRUSH CLEANER Unavailable Tameka Juarez RN Unavailable Unavailable Ely Dunlap RN Unavailable Unavailable Mely Ford RN Unavailable Lisa Rae RN Unavailable Unavailable Promise Wiseman RN Unavailable Unavailable Mark Dixon MD Unavailable Radha Hung BRUSH CLEANER Unavailable Cecile Foote RN Unavailable Whitney [...] Reason Comments Cancer Follow up Encounter Details Care Team Description Date Type Department Al-Mariaelena Walter MD [address] [place] [address] [phone] Cancer Follow up 05/31/2018 Telephone [facility] [address] [place] [address] Social History Date Tobacco Use Types Packs/Day [...] anything from this office at this time. MWAISHA in this encounter Plan of Treatment Not on fileas of this encounter Visit Diagnoses Not on filein this encounter
--- OUTSIDE RECORDS SUMMARY | 2018-07-21 13:02 | XMS REPORT | Encounter Summary ---
Author Author [facility] Organization [facility] Address Unknown Phone Unavailable Care Team Providers Care Hims Clerk Name Role Phone Buster Erazo MD Unavailable Michelle Valencia MD Unavailable Jeffy Holbrook MD Unavailable Jass Paris MD Unavailable Lucy Guzmán MANAGER PRESENTATION Unavailable Tameka Juarez RN Unavailable Unavailable Ely Dunlap RN Unavailable Unavailable Mely Ford RN Unavailable Lisa Rae RN Unavailable Unavailable Promise Wiseman RN Unavailable Unavailable Mark Dixon MD Unavailable Radha Hung MANAGER PRESENTATION Unavailable Cecile Foote RN Unavailable Whitney Guy [...] Details Care Team Description Date Type Department Mely Jaeger, MANAGER PRESENTATION [address] [place] [address] [phone] 05/20/2018 Documentation [facility] [address] [place] [phone] Social History Date Tobacco Use Types Packs/Day [...] AM CDT This provider returned sister's call. [facility] oncologist, Dr. Griffiths, in [place] will not give pt immunotherapy infusion given [...] with doppler study was recently performed at [facility] 04/14/18 and showed patent TIPS. Plan to fax copy of report to Dr. Griffiths's office. I do not think repeat imaging is warranted at this time given pt has had weight loss since back on diuretic therapy. This provider contacted Dr. Tunde Garcia's nurse at [phone], for fax number to send copy of report. Fax number is [phone]. Radha stated she is unsure as to when the infusion will be rescheduled as Dr. Griffiths is out of the [place] and will not return until next Thursday. Dr. Griffiths will review report and decide if pt should proceed with infusion. Radha will contact pt' s sister, Brenda, and let her know of the plan. in this encounter Plan of Treatment Not on fileas of this encounter Visit Diagnoses Not on filein this encounter
--- OUTSIDE RECORDS SUMMARY | 2018-07-21 13:02 | XMS REPORT | Encounter Summary ---
Author Author [facility] Organization [facility] Address Unknown Phone Unavailable Care Team Providers Care Senior Accountant Analyst Name Role Phone Buster Erazo MD Unavailable Michelle Valencia MD Unavailable Jeffy Holbrook MD Unavailable Jass Paris MD Unavailable Lucy Guzmán SALES ADVISOR Unavailable Tameka Juarez RN Unavailable Unavailable Ely Dunlap RN Unavailable Unavailable Mely Ford RN Unavailable Lisa Rae RN Unavailable Unavailable Promise Wiseman RN Unavailable Unavailable Mark Dixon MD Unavailable Radha Hung SALES ADVISOR Unavailable Cecile Foote RN Unavailable Whitney Guy [...] Reason Comments Other return call Encounter Details Care Team Description Date Type Department Mil, Mely, SALES ADVISOR [address] [place] [address] Other (return call) 05/11/2018 Telephone [facility] [address] fl [address] [place] [address] Social History Date Tobacco Use [...] per sister Kacy. * Telephone Encounter - Tata Huitron - 05/11/2018 11:56 AM CDT Please return sister (Kacy)'s call. in this encounter Plan of Treatment Not on fileas of this encounter Visit Diagnoses Not on filein this encounter
--- OUTSIDE RECORDS SUMMARY | 2018-07-21 13:02 | XMS REPORT | Encounter Summary ---
Author Author [facility] Organization [facility] Address Unknown Phone Unavailable Care Team Providers Care Stopper Maker Helper Name Role Phone Buster Erazo MD Unavailable Michelle Valencia MD Unavailable Jeffy Holbrook MD Unavailable Jass Paris MD Unavailable Lucy Guzmán COOK FAST FOOD Unavailable Tameka Juarez RN Unavailable Unavailable Ely Dunlap RN Unavailable Unavailable Mely Ford RN Unavailable Lisa Rae RN Unavailable Unavailable Promise Wiseman RN Unavailable Unavailable Mark Dixon MD Unavailable Radha Hung COOK FAST FOOD Unavailable Cecile Foote RN Unavailable Whitney Guy [...] Call Labs done on 05/18 Encounter Details Care Team Description Date Type Department Mely Jaeger, COOK FAST FOOD [address] [place] [address] Follow-up Phone Call (Labs done on 05/18) 05/27/2018 Telephone [facility] [address] [place] [address] Social History Date Tobacco Use [...] answer. in this encounter Plan of Treatment Not on fileas of this encounter Visit Diagnoses Not on filein this encounter
--- OUTSIDE RECORDS SUMMARY | 2018-07-21 13:02 | XMS REPORT | Encounter Summary ---
Author Author [facility] Organization [facility] Address Unknown Phone Unavailable Care Team Providers Care Lead Worker Of Housekeeping And Laundry Name Role Phone Buster Erazo MD Unavailable Michelle Valencia MD Unavailable Jeffy Holbrook MD Unavailable Jass Paris MD Unavailable Lucy Guzmán SPORTS PHOTOGRAPHER Unavailable Tameka Juarez RN Unavailable Unavailable Ely Dunlap RN Unavailable Unavailable Mely Ford RN Unavailable Lisa Rae RN Unavailable Unavailable Promise Wiseman RN Unavailable Unavailable Mark Dixon MD Unavailable Radha Hung SPORTS PHOTOGRAPHER Unavailable Cecile Foote RN Unavailable Whitney Guy [...] Details Care Team Description Date Type Department Isela Guzman, RN HCC (hepatocellular carcinoma) (HCC) (Primary Dx); End-stage liver disease (HCC) 05/13/2018 Orders Only [facility] [address] [place] [address] Social History Date Tobacco Use [...] Orders in this encounter Plan of Treatment Order Schedule Name Priority Associated Diagnoses Expected: 07/10/2018 (Approximate), Expires: 05/13/2019 PROTIME INR (PT) Routine HCC (hepatocellular carcinoma) (HCC) End-stage liver disease (HCC) Expected: 07/10/2018 (Approximate), Expires: 07/10/2019 COMPREHENSIVE METABOLIC PANEL Routine HCC (hepatocellular carcinoma) (HCC) End-stage liver disease (HCC) Expected: 07/10/2018 (Approximate), Expires: 05/13/2019 CBC AND DIFF Routine HCC (hepatocellular carcinoma) (HCC) End-stage liver disease (HCC) Expected: 07/10/2018 (Approximate), Expires: 05/13/2019 ALPHA FETO PROTEIN (AFP) Routine HCC (hepatocellular carcinoma) (HCC) End-stage liver disease (HCC) as of this encounter Visit Diagnoses Diagnosis HCC (hepatocellular carcinoma) (HCC) - Primary Malignant neoplasm of liver, primary End-stage liver disease (HCC) Other sequelae of chronic liver disease in this encounter
--- OUTSIDE RECORDS SUMMARY | 2018-07-21 13:02 | XMS REPORT | Encounter Summary ---
Author Author [facility] Organization [facility] Address Unknown Phone Unavailable Care Team Providers Care Door Operator Name Role Phone Buster Earzo MD Unavailable Michelle Valencia MD Unavailable Jeffy Holbrook MD Unavailable Jass Paris MD Unavailable Lucy Guzmán FAMILY WELFARE SOCIAL WORK PROFESSOR Unavailable Tameka Juarez RN Unavailable Unavailable Ely Dunlap RN Unavailable Unavailable Mely Ford RN Unavailable Lisa Rae RN Unavailable Unavailable Promise Wiseman RN Unavailable Unavailable Mark Dixon MD Unavailable Radha Hung FAMILY WELFARE SOCIAL WORK PROFESSOR Unavailable Cecile Foote RN Unavailable Whitney Guy [...] Description Date Type Department Al-Mariaelena Walter MD [address] [place] [address] [phone] Cancer Follow up 05/18/2018 Telephone [facility] [address] [place] [address] Social History Date Tobacco Use Types Packs/Day [...] June. in this encounter Plan of Treatment Not on fileas of this encounter Visit Diagnoses Not on filein this encounter
--- OUTSIDE RECORDS SUMMARY | 2018-07-21 13:02 | XMS REPORT | Encounter Summary ---
Author Author [facility] Organization [facility] Address Unknown Phone Unavailable Care Team Providers Care Chief Console Operator Name Role Phone Buster Erazo MD Unavailable Michelle Valencia MD Unavailable Jeffy Holbrook MD Unavailable Jass Paris MD Unavailable Lucy Guzmán PADDOCK JUDGE Unavailable Tameka Juarez RN Unavailable Unavailable Ely Dunlap RN Unavailable Unavailable Mely Ford RN Unavailable Lisa Rae RN Unavailable Unavailable Promise Wiseman RN Unavailable Unavailable Mark Dixon MD Unavailable Radha Hung PADDOCK JUDGE Unavailable Cecile Foote RN Unavailable Whitney Guy [...] Visit * Reason Comments Other Encounter Details Care Team Description Date Type Department Mely Jaeger APRN [address] [place], [place] [id number] Other 05/19/2018 Telephone [facility] [address] [place] [address] Social History Date Tobacco Use [...] not. Faxed lab order to home at [phone] * Telephone Encounter - Aixa Dugan RN [...] Wants to get cancer treatment transferred from [place] to [facility]. Infusion missed due to patient not feeling well. Patient was not taking water pills. Had gained weight up to 233# after restarting pills he went back to 220#. Recent low weight was 207# after not eating while on chemotherapy. Dr Cachorro Griffiths in [place] will not treat patient [...] advise. in this encounter Plan of Treatment Not on fileas of this encounter Visit Diagnoses Not on filein this encounter
--- OUTSIDE RECORDS SUMMARY | 2018-07-21 13:02 | XMS REPORT | Encounter Summary ---
Author Author [facility] Organization [facility] Address Unknown Phone Unavailable Care Team Providers Care Telephone Instrument Supervisor Name Role Phone Buster Erazo MD Unavailable Michelle Valencia MD Unavailable Jeffy Holbrook MD Unavailable Jass Paris MD Unavailable Lucy Guzmán SHEARER HELPER Unavailable Tameka Juarez RN Unavailable Unavailable Ely Dunlap RN Unavailable Unavailable Mely Ford RN Unavailable Lisa Rae RN Unavailable Unavailable Promise Wiseman RN Unavailable Unavailable Mark Dixon MD Unavailable Radha Hung SHEARER HELPER Unavailable Cecile Foote RN Unavailable Whitney Guy [...] * Reason Comments Appointment Request Encounter Details Care Team Description Date Type Department Mariaelena Robertson MD [address] [place] [address] [phone] Appointment Request 05/18/2018 Telephone [facility] [place] [address] [place] [address] Social History Date Tobacco Use Types Packs/Day [...] Miscellaneous Notes * Telephone Encounter - Chio Kelley MA - 05/18/2018 8:42 AM CDT Incoming call from [facility] to cancel appointments patient is wanting to transfer care to [facility] closer to home. in this encounter Plan of Treatment Not on fileas of this encounter Visit Diagnoses Not on filein this encounter
--- OUTSIDE RECORDS SUMMARY | 2018-07-21 13:02 | XMS REPORT | Encounter Summary ---
Author Author [facility] Organization [facility] Address Unknown Phone Unavailable Care Team Providers Care Consolidation Accountant Name Role Phone Buster Erazo MD Unavailable Michelle Valencia MD Unavailable Jeffy Holbrook MD Unavailable Jass Paris MD Unavailable Lucy Guzmán BARREL STAVE INSPECTOR Unavailable Tameka Juarez RN Unavailable Unavailable Ely Dunlap RN Unavailable Unavailable Mely Ford RN Unavailable Lisa Rae RN Unavailable Unavailable Promise Wiseamn RN Unavailable Unavailable Mark Dixon MD Unavailable Radha Hung BARREL STAVE INSPECTOR Unavailable Cecile Foote RN Unavailable Whitney Guy [...] Description Date Type Department Al-Mariaelena Walter MD [address] [place] [address] [phone] Cancer Follow up 05/24/2018 Telephone [facility] [address] [place] [address] Social History Date Tobacco Use Types Packs/Day [...] message. in this encounter Plan of Treatment Not on fileas of this encounter Visit Diagnoses Not on filein this encounter
--- OUTSIDE RECORDS SUMMARY | 2018-07-21 13:02 | XMS REPORT | Encounter Summary ---
Author Author [facility] Organization [facility] Address Unknown Phone Unavailable Care Team Providers Care On Line Csr Name Role Phone Buster Erazo MD Unavailable Michelle Valencia MD Unavailable Jeffy Holbrook MD Unavailable Jass Paris MD Unavailable Lucy Guzmán CLINICAL CYTOPATHOLOGIST Unavailable Tameka Juarez RN Unavailable Unavailable Ely Dunlap RN Unavailable Unavailable Mely Ford RN Unavailable Lisa Rae RN Unavailable Unavailable Promise Wiseman RN Unavailable Unavailable Mark Dixon MD Unavailable Radha Hung CLINICAL CYTOPATHOLOGIST Unavailable Cecile Foote RN Unavailable Whitney Guy MA Unavailable Unavailable Ara Espitia RN Unavailable Unavailable Sanhdya Alejandro MA Unavailable Unavailable Macy Bishop Unavailable Unavailable Betsey Tate RN Unavailable Unavailable Jose Carter RN Unavailable Unavailable Aixa Dugan RN Unavailable Unavailable Sara Gutierrez Unavailable Unavailable Mally Burkett RN Unavailable Unavailable Manan Mustafa MD Unavailable Kiana Gomez Unavailable Unavailable Melina Griffiths MD 3 Ayesha Lyn MD PCP Reason for Visit * Reason Comments Worsening Symptoms Encounter Details Care Team Description Date Type Department Mil, Mely, CLINICAL CYTOPATHOLOGIST [address] [place] [address] Worsening Symptoms 05/10/2018 Telephone [facility] [address] [place] [address] Social History Date Tobacco Use [...] [facility]una arranges medication. I called her at [phone] [facility] to ask about lasix. * Telephone Encounter - Nela Rahman - 05/10/2018 3:47 PM CDT Pts sister DILLON requesting to speak with NC regarding pts current condition and symptoms. in this encounter Plan of Treatment Order Schedule Name Priority Associated Diagnoses Expected: 05/18/2018 (Approximate), Expires: 05/11/2019 BASIC METABOLIC PANEL Routine HCC (hepatocellular carcinoma) (HCC) End-stage liver disease (HCC) Expected: 06/01/2018 (Approximate), Expires: 05/11/2019 BASIC METABOLIC PANEL Routine HCC (hepatocellular carcinoma) (HCC) End-stage liver disease (HCC) as of this encounter Visit Diagnoses Diagnosis HCC (hepatocellular carcinoma) (HCC) - Primary Malignant neoplasm of liver, primary End-stage liver disease (HCC) Other sequelae of chronic liver disease in this encounter
--- OUTSIDE RECORDS SUMMARY | 2018-07-21 13:03 | XMS REPORT | Encounter Summary ---
Author Author [facility] Organization [facility] Address Unknown Phone Unavailable Care Team Providers Care Mask Designer Name Role Phone Buster Erazo MD Unavailable Michelle Valencia MD Unavailable Jeffy Holbrook MD Unavailable Jass Paris MD Unavailable Lucy Guzmán NAIL EXPERT Unavailable Tameka Juarez RN Unavailable Unavailable Ely Dunlap RN Unavailable Unavailable Mely Ford RN Unavailable Lisa Rae RN Unavailable Unavailable Promise Wiseman RN Unavailable Unavailable Mark Dixon MD Unavailable Radha Hung NAIL EXPERT Unavailable Cecile Foote RN Unavailable Whitney Guy MA Unavailable Unavailable Ara Espitia RN Unavailable Unavailable Sandhya Alejandro MA Unavailable Unavailable Macy Bishop Unavailable Unavailable Betsey Tate RN Unavailable Unavailable Jose Carter RN Unavailable Unavailable Aixa Dugan RN Unavailable Unavailable Sara Gutierrez Unavailable Unavailable Mally Burkett RN Unavailable Unavailable Manan Mustafa MD Unavailable Kiana oGmez Unavailable Unavailable Melina Griffiths MD 3 Ayesha Lyn MD PCP Encounter Details Care Team Description Date Type Department Nazia Huang, NAIL EXPERT-COMMUNICATION ARTS LECTURER [address] [place] [address] [phone] 04/29/2018 Orders Only [facility] [address] [place] [address] Social History Date Tobacco Use Types Packs/Day [...]
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
--- OUTSIDE RECORDS SUMMARY | 2018-07-21 13:03 | XMS REPORT | Encounter Summary ---
Author Author [facility] Organization [facility] Address Unknown Phone Unavailable Care Team Providers Care Survey Manager Name Role Phone Buster Erazo MD Unavailable Michelle Valencai MD Unavailable Jeffy Holbrook MD Unavailable Jass Paris MD Unavailable Lucy Guzmán SURGERY TECHNICIAN Unavailable Tameka Juarez RN Unavailable Unavailable Ely Dunlap RN Unavailable Unavailable Mely Ford RN Unavailable Lisa Rae RN Unavailable Unavailable Promise Wiseman RN Unavailable Unavailable Mark Dixon MD Unavailable Radha Hung SURGERY TECHNICIAN Unavailable Cecile Foote RN Unavailable Whitney Guy [...] Reason Comments Heme/Onc Care labs Encounter Details Care Team Description Date Type Department Nazia Huang, SURGERY TECHNICIAN-JOIST SETTER [address] [place], [place] [phone] HCC (hepatocellular carcinoma) (HCC) (Primary Dx) 05/03/2018 Nurse Only [facility] [address] [place] [address] Social History Date Tobacco Use Types Packs/Day [...] Comments Procedure Name Priority Date/Time Associated Diagnosis CBC AND DIFF Routine 05/03/2018 HCC (hepatocellular 9:46 AM CDT carcinoma) (HCC) COMPREHENSIVE METABOLIC Routine 05/03/2018 HCC (hepatocellular PANEL 9:46 AM CDT carcinoma) (HCC) in this encounter Results * COMPREHENSIVE METABOLIC PANEL (05/03/2018 9:46 AM CDT) Sodium 135 (L) 137 - 147 MMOL/L [...] Blood Performing Organization Address City/State/Zipcode Phone Number [facility] [address] [place] [address] * CBC AND DIFF (05/03/2018 9:46 AM CDT) White Blood Cells 3.0 (L) 4.5 - [...] Blood Performing Organization Address City/State/Zipcode Phone Number [facility] [address] [place] [address] in this encounter Visit Diagnoses Diagnosis HCC (hepatocellular carcinoma) (HCC) - Primary Malignant neoplasm of liver, primary in this encounter
--- OUTSIDE RECORDS SUMMARY | 2018-07-21 13:03 | XMS REPORT | Encounter Summary ---
Author Author [facility] Organization [facility] Address Unknown Phone Unavailable Care Team Providers Care Hydropress Operator Name Role Phone Buster Erazo MD Unavailable Michelle Valencia MD Unavailable Jeffy Holbrook MD Unavailable Jass Paris MD Unavailable Lucy Guzmán VICE PRESIDENT OF TALENT ACQUISITION Unavailable Tameka Juarez RN Unavailable Unavailable [place] Dunlap RN Unavailable Unavailable Mely Ford RN Unavailable Lisa Rae RN Unavailable Unavailable Promise Wiseman RN Unavailable Unavailable Mark Dixon MD Unavailable Radha Hung VICE PRESIDENT OF TALENT ACQUISITION Unavailable Cecile Foote RN Unavailable Whitney Guy [...] Comments Heme/Onc Care opdivo * Treatment (Routine) Referred By Contact Referred To Contact Status Reason Specialty Diagnoses / Procedures Mariaelena Robertson MD [address] [place] [address] [facility] [address] [place] Authorized Diagnoses HCC (hepatocellular carcinoma) (HCC) 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 insulin detemir(+) Inject under 0 (LEVEMIR) 100 [...] by 0 tablet mouth at bedtime daily. 05/11/2018 furosemide (LASIX) 40 mg Take 20 mg by 0 tablet mouth daily. as of this encounter Progress Notes * Yobany De La Cruz, AISHA - 05/03/2018 12:46 PM CDT CHEMO NOTE [...] accepted in this encounter Plan of Treatment Not on fileas of this encounter Visit Diagnoses Diagnosis HCC (hepatocellular carcinoma) (HCC) Malignant neoplasm of liver, primary in this encounter Administered Medications Action Date Dose Rate Site Medication Order MAR Action 05/03/2018 12:38 PM CDT 500 Units heparin lock flush PF syringe 500 Units Given 500 Units, Intravenous, ONCE, 1 dose, Thu05/03/18 at 1130, NOTE: This is a HIGH ALERT Medication., 05/03/2018 11:59 AM CDT 240 mg 248 mL/hr nivolumab (OPDIVO) 240 mg in sodium Given - New chloride 0.9% (NS) 124 mL IVPB Bag 240 mg, Intravenous, 124 mL, Administer over 30 Minutes, ONCE, 1 dose, Thu05/03/18 at 1200, NOTE: This is a HIGH ALERT Medication., in this encounter
--- OUTSIDE RECORDS SUMMARY | 2018-07-21 13:03 | XMS REPORT | Encounter Summary ---
Author Author [facility] Organization [facility] Address Unknown Phone Unavailable Care Team Providers Care Computational Theory Scientist Name Role Phone Buster Erazo MD Unavailable Michelle Valencia MD Unavailable Jeffy Holbrook MD Unavailable Jass Paris MD Unavailable Lucy Guzmán TRANSIT MANAGER Unavailable Tameka Juarez RN Unavailable Unavailable [place] Dunlap RN Unavailable Unavailable Mely Ford RN Unavailable Lisa Rae RN Unavailable Unavailable Promise Wiseman RN Unavailable Unavailable Mark Dixon MD Unavailable Radha Hung TRANSIT MANAGER Unavailable Cecile Foote RN Unavailable Whitney Guy MA Unavailable Unavailable Ara Espitia RN Unavailable Unavailable Sandhya Alejandro MA Unavailable Unavailable Macy Bishop Unavailable Unavailable Betsey Tate RN Unavailable Unavailable Jose Carter RN Unavailable Unavailable Aixa Dugan RN Unavailable Unavailable Sara Gutierrez Unavailable Unavailable Mally Burkett RN Unavailable Unavailable Maann Mustafa MD Unavailable Kiana Gomez Unavailable Unavailable Melina Griffiths MD 3 Ayesha Lyn MD PCP Reason for Visit * Reason Comments Chemotherapy Follow up Encounter Details Care Team Description Date Type Department Valeria Kessler PHARMD Chemotherapy Follow up 04/30/2018 Telephone [facility] [place] [facility] [place] [address] Social History Date Tobacco Use Types Packs/Day [...] be re-enrolled at any time by contacting [phone]. Valeria Kessler PHARMD Clinical Pharmacist 04/30/2018 in this encounter Plan of Treatment Not on fileas of this encounter Visit Diagnoses Not on filein this encounter
--- OUTSIDE RECORDS SUMMARY | 2018-07-21 13:03 | XMS REPORT | Encounter Summary ---
Author Author [facility] Organization [facility] Address Unknown Phone Unavailable Care Team Providers Care Microsoft Windows Engineer Name Role Phone Buster Erazo MD Unavailable Michelle Valencia MD Unavailable Jeffy Holbrook MD Unavailable Jass Paris MD Unavailable Lucy Guzmán FLOW COORDINATOR Unavailable Tameka Juarez RN Unavailable Unavailable [place] Dunlap RN Unavailable Unavailable Mely Ford RN Unavailable Lisa Rae RN Unavailable Unavailable Promise Wiseman RN Unavailable Unavailable Mark Dixon MD Unavailable Radha Hung FLOW COORDINATOR Unavailable Cecile Foote RN Unavailable Whitney Guy MA Unavailable Unavailable Ara Espitia RN Unavailable Unavailable Sandhya Alejandro MA Unavailable Unavailable Macy Bishop Unavailable Unavailable Betsey Tate RN Unavailable Unavailable Jose Carter RN Unavailable Unavailable Aixa Dugan RN Unavailable Unavailable Sara Gutierrez Unavailable Unavailable Mally Burkett RN Unavailable Unavailable Manan Mustafa MD Unavailable Kiana Gmoez Unavailable Unavailable Melina Griffiths MD 3 Ayesha Lyn MD PCP Reason for Visit * Reason Comments Results 04/14 US 04/14 & 04/22 Labs Encounter Details Care Team Description Date Type Department Joseph Guzman RN Results (04/14 US 04/14 & 04/22 Labs) 04/26/2018 Telephone [facility] [address] [place] [phone] Social History Date Tobacco Use Types Packs/Day [...] on day when pt has appt at [facility]. Contact pt's sister regarding results and recommendations. in this encounter Plan of Treatment Order Schedule Name Priority Associated Diagnoses Expected: 08/16/2018 (Approximate), Expires: 04/26/2019 US DOPPLER ABD PELV RETROPER COMP Routine Cirrhosis of liver with ascites, unspecified hepatic cirrhosis type (HCC) End-stage liver disease (HCC) Hepatic encephalopathy (HCC) S/P TIPS (transjugular intrahepatic portosystemic shunt) as of this encounter Visit Diagnoses Diagnosis End-stage liver disease (HCC) - Primary Other sequelae of chronic liver disease Hepatic encephalopathy (HCC) Hepatic encephalopathy S/P TIPS (transjugular intrahepatic portosystemic shunt) Other postprocedural status Cirrhosis of liver with ascites, unspecified hepatic cirrhosis type (HCC) in this encounter
--- OUTSIDE RECORDS SUMMARY | 2018-07-21 13:03 | XMS REPORT | Encounter Summary ---
Author Author [facility] Organization [facility] Address Unknown Phone Unavailable Care Team Providers Care Salary And Wage Administrator Name Role Phone Buster Erazo MD Unavailable Michelle Valencia MD Unavailable Jeffy Holbrook MD Unavailable Jass Paris MD Unavailable Lucy Guzmán CONCRETE FLOATER Unavailable Tameka Juarez RN Unavailable Unavailable [place] Dunlap RN Unavailable Unavailable Mely Ford RN Unavailable Lisa Rae RN Unavailable Unavailable Promise Wiseman RN Unavailable Unavailable Mark Dixon MD Unavailable Radha Hung CONCRETE FLOATER Unavailable Cecile Foote RN Unavailable Whitney Guy MA Unavailable Unavailable Ara Espitia RN Unavailable Unavailable Sandhya Alejandro MA Unavailable Unavailable Macy Bishop Unavailable Unavailable Betsey Tate RN Unavailable Unavailable Jose Carter RN Unavailable Unavailable Aiax Dugan RN Unavailable Unavailable Sara Gutierrez Unavailable Unavailable Mally Burkett RN Unavailable Unavailable Manan Mustafa MD Unavailable Kiana Gomez Unavailable Unavailable Melina Griffiths MD 3 Ayesha Lyn MD PCP Encounter Details Care Team Description Date Type Department Mariaelena Robertson MD [address] [place] [address] [phone] 04/29/2018 Orders Only [facility] [place] [facility] [place] [address] [place] [address] Social History Date Tobacco Use Types Packs/Day [...]
--- OUTSIDE RECORDS SUMMARY | 2018-07-21 13:04 | XMS REPORT | Encounter Summary ---
Author Author [facility] Organization [facility] Address Unknown Phone Unavailable Care Team Providers Care Retail Sales Advisor Name Role Phone Buster Erazo MD Unavailable Michelle Valencia MD Unavailable Jeffy Holbrook MD Unavailable Jass Paris MD Unavailable Lucy Guzmán DRAPERY HAND Unavailable Tameka Juarez RN Unavailable Unavailable Ely Dunlap RN Unavailable Unavailable Mely Ford RN Unavailable Lisa Rae RN Unavailable Unavailable Promise Wiseman RN Unavailable Unavailable Mark Dixon MD Unavailable Radha Hung DRAPERY HAND Unavailable Cecile Foote RN Unavailable Whitney [...] Specialty Diagnoses / Procedures Mariaelena Robertson MD [address] [place] [address] Cc - Ww Cl Trmt Rust [id number] [place], [place] Authorized Diagnoses HCC (hepatocellular carcinoma) (HCC) 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) P rocedures nivolumab (OPDIVO) Encounter Details Care Team Description Date Type Department Nazia Huang APRN-MAY [address] [place] [address] 04/22/2018 Hospital [facility] Encounter Cancer Center - Treatment [facility] [address] [place] [address] Social History Date Tobacco Use Types Packs/Day [...] Vital Signs Time Taken Vital Sign Reading 04/22/2018 1:32 PM CDT Blood Pressure 104/58 04/22/2018 1:32 PM CDT Pulse 66 04/22/2018 1:32 PM CDT Temperature 36.8 C (98.2 F) 04/22/2018 1:32 PM CDT Respiratory Rate 16 04/22/2018 1:32 PM CDT Oxygen Saturation 99% - Inhaled Oxygen - Concentration 04/22/2018 1:32 PM CDT Weight 96.3 kg (212 lb 6.4 oz) - Height - 04/22/2018 1:32 PM CDT Body Mass Index 28.81 in this encounter Functional Status Date of [...] cognitive impairment: No as of this encounter Discharge Instructions * Patient Instructions* Georgia Ruth RN - 04/22/2018 3:08 PM CDT [facility] Chemotherapy Instructions Cirilo Bedoya 04/22/2018 Chemotherapy [...] Main Number (answered 24 hours a day) [phone] [facility] Scheduling (appointments) [phone] [place] [phone] Paediatric Surgeon [phone] in this encounter Medications at Time of [...] 20 mg by 0 tablet mouth daily. 03/09/2018 05/03/2018 SORAfenib(+) (NEXAVAR) Take 2 120 tablet 2 200 mg tablet tablets by mouth twice daily. as of this encounter Progress [...] Dose Rate Site Medication Order MAR Action 04/22/2018 3:36 PM CDT 500 Units heparin lock flush PF syringe 500 Units Given 500 Units, Intra-catheter, ONCE, 1 dose, Nicole 04/22/18 at 1430, NOTE: This is a HIGH ALERT Medication., 04/22/2018 2:58 PM CDT 240 mg 248 mL/hr nivolumab (OPDIVO) 240 mg in sodium Given - New chloride 0.9% (NS) 124 mL IVPB Bag 240 mg, Intravenous, 124 mL, Administer over 30 Minutes, ONCE, 1 dose, Nicole 04/22/18 at 1500, NOTE: This is a HIGH ALERT Medication., in this encounter
--- OUTSIDE RECORDS SUMMARY | 2018-07-21 13:04 | XMS REPORT | Encounter Summary ---
Author Author [facility] Organization [facility] Address Unknown Phone Unavailable Care Team Providers Care Stick Inserter Name Role Phone Buster Erazo MD Unavailable Michelle Valencia MD Unavailable Jeffy Holbrook MD Unavailable Jass Paris MD Unavailable Lucy Guzmán FORMULA MAKER Unavailable Tameka Juarez RN Unavailable Unavailable Ely Dunlap RN Unavailable Unavailable Mely Ford RN Unavailable Lisa Rae RN Unavailable Unavailable Promise Wiseman RN Unavailable Unavailable Mark Dixon MD Unavailable Radha Hung FORMULA MAKER Unavailable Cecile Foote RN Unavailable Whitney Guy MA Unavailable Unavailable Ara Espitia RN Unavailable Unavailable Sandhya Alejandro MA Unavailable Unavailable Macy Bishop Unavailable Unavailable Betsey Tate RN Unavailable Unavailable Jose Carter RN Unavailable Unavailable Aixa Dugan RN Unavailable Unavailable Sara Gutierrez Unavailable Unavailable Mlaly Burkett RN Unavailable Unavailable Manan Mustafa MD Unavailable Kiana Gomez Unavailable Unavailable Melina Griffiths MD 3 Ayesha Lyn MD PCP Reason for Referral * Radiology Services (Routine) Referred By Contact Referred To Contact Status Reason Specialty Diagnoses / Procedures Al-Rajabi, Raed, MD [address] [place] [address] [place] [address] No Auth Needed Radiology Diagnoses HCC (hepatocellular carcinoma) (HCC) P rocedures IR CENTRAL VENOUS CATHETER CHG FLUORO CENTRAL VENOUS ACCESS DEV PLACEMENT CHG US VASC ACCESS SITS VSL PATENCY NDL ENTRY DC INSJ TUNNELED CTR VAD W/SUBQ PORT AGE 5 YR/> * Radiology Services (Routine) Referred By Contact Referred To Contact Status Reason Specialty Diagnoses / Procedures Mariaelena Robertson MD [address] [place] [address] [place] [address] No Auth Needed Radiology Diagnoses HCC (hepatocellular carcinoma) (HCC) P rocedures IR CENTRAL VENOUS CATHETER CHG FLUORO CENTRAL VENOUS ACCESS DEV PLACEMENT CHG US VASC ACCESS SITS VSL PATENCY NDL ENTRY DC INSJ TUNNELED CTR VAD W/SUBQ PORT AGE 5 YR/> Reason for Visit * Radiology Services (Routine) Referred By Contact Referred To Contact Status Reason Specialty Diagnoses / Procedures Mariaelena Robertson MD [address] [place] [address] [place] [address] No Auth Needed Radiology Diagnoses HCC (hepatocellular carcinoma) (HCC) P rocedures IR CENTRAL VENOUS CATHETER CHG FLUORO CENTRAL VENOUS ACCESS DEV PLACEMENT CHG US VASC ACCESS SITS VSL PATENCY NDL ENTRY DC INSJ TUNNELED CTR VAD W/SUBQ PORT AGE 5 YR/> Encounter Details Care Team Description Date Type Department Mariaelena Robertson MD [address] [place] [address] Macy Palomo RN Sleeper, Anna, RT(R)(),LRT Jeffy Holbrook MD [address] [place] [address] HCC (hepatocellular carcinoma) (HCC) 04/22/2018 Hospital [facility] Radiology [facility] [address]nd fl [address] [place], [place] [id number] Social History Date Tobacco Use Types Packs/Day [...] Signs Time Taken Vital Sign Reading 04/22/2018 11:30 AM CDT Blood Pressure 107/71 04/22/2018 11:30 AM CDT Pulse 82 04/22/2018 11:06 AM CDT Temperature 36.8 C (98.2 F) - Respiratory Rate - 04/22/2018 11:30 AM CDT Oxygen Saturation 97% - Inhaled Oxygen - Concentration 04/22/2018 8:47 AM CDT Weight 92.5 kg (204 lb) 04/22/2018 8:47 AM CDT Height 182.9 cm (6') 04/22/2018 8:47 AM CDT Body Mass Index 27.67 in this encounter Functional Status Date of [...] this encounter Discharge Instructions * Patient Instructions* Saurav Savage RN - 04/22/2018 8:54 AM [...] pain or shortness of breath, please call [phone]. For any of the above symptoms or for problems or concerns related to the procedure, call [phone] for Thursday-Thursday 7-5. After-hours and weekends, please call [phone] and ask for the Interventional Flight Communications Officer on-call. What is Procedural Sedation? Procedural sedation [...] one level of sedation to both a manager route or deeper level during the procedure. The [...] way home if you choose, but the armor reconnaissance vehicle driver cannot be your responsible alliance party. You may not drive yourself. in this [...] this encounter H&P Notes * Kelley Troncoso, MSN,FORMULA MAKER - 04/22/2018 8:35 AM CDT Pre Procedure History and Physical/Sedation Plan Procedure [...] previous H&P performed on 04/14/18. Mary Troncoso, MSN,FORMULA MAKER Pager [phone] in this encounter Miscellaneous Notes * Procedures [...] Post-Procedure Condition: stable Yosvany Bacon MD Pager [phone] in this encounter Plan of Treatment Not on fileas of this encounter Procedures Comments Procedure Name Priority Date/Time Associated Diagnosis TSH WITH FREE T4 REFLEX Add on [...] (HCC) POC GLUCOSE 04/22/2018 9:23 AM CDT in this encounter Results * TSH WITH FREE T4 REFLEX (04/22/2018 11:29 AM CDT) TSH 4.500 0.35 - 5.00 MCU/ML [facility] Performing Organization Address City/State/Zipcode Phone Number [facility] [address] [place] [address] * COMPREHENSIVE METABOLIC PANEL (04/22/2018 11:29 AM CDT) Sodium 136 (L) 137 - 147 MMOL/L [...] for questions. Specimen Blood Performing Organization Address City/[facility]/Zipcode Phone Number MAIN [facility] [address] [place] [address] * PROTIME INR (PT) (04/22/2018 11:29 AM CDT) INR 1.2 0.8 - 1.2 [facility] Specimen Blood Performing Organization Address City/[facility]/Zipcode Phone Number [facility] [address] [place] [address] * CBC AND DIFF (04/22/2018 11:29 AM CDT) White Blood Cells 3.6 (L) 4.5 - 11.0 [facility] RBC 3.94 (L) 4.4 - 5.5 [facility] Hemoglobin 11.0 (L) 13.5 - 16.5 GM/DL [facility] Hematocrit 33.0 (L) 40 - 50 % MAIN [facility] MCV 83.7 80 - [address] [facility] MCH 28.0 26 - [address] [facility] MCHC 33.4 32.0 - 36.0 G/DL MAIN LAB RDW 21.3 (H) 11 - [...] Phone Number MAIN [facility] [address] [place] [address] * IR CENTRAL VENOUS CATHETER (04/22/2018 10:34 [...] documentation.The needle was exchanged for a 5 Bahamian coaxial dilator. The inner dilator and the wire were removed and an 0.035 Amplatz superstiff wire was advanced into the IVC. A 8 Bahamian peel-away sheath was placed. Attention was turned [...] The needle was exchanged for a 5 Bahamian coaxial dilator. The inner dilator and the wire were removed and an 0.035 Amplatz superstiff wire was advanced into the IVC. A 8 Bahamian peel-away sheath was placed. Attention was turned [...] on 04/23/2018 9:45 AM. Performing Organization Address City/[facility]/Zipcode Phone Number [facility] RES[facility] * POC GLUCOSE (04/22/2018 9:23 AM CDT) Glucose, POC 151 (H) 70 - 100 MG/DL [facility] Performing Organization Address City/State/Zipcode Phone Number [facility] [address] [place] [address] in this encounter Visit Diagnoses Diagnosis HCC (hepatocellular carcinoma) (HCC) Malignant neoplasm of liver, primary Cirrhosis of liver without ascites, unspecified hepatic cirrhosis type (HCC) in this encounter Administered Medications Action Date Dose Rate Site Medication Order MAR Action 04/22/2018 10:27 AM CDT 25 mcg fentaNYL citrate PF (SUBLIMAZE) Given injection 25-50 mcg 25-50 mcg, Intravenous, ONCE, 1 dose, Nicole 04/22/18 at 0845, Administer prior to procedure for anxiolysis, 04/22/2018 10:43 AM CDT 25 mcg fentaNYL citrate PF (SUBLIMAZE) Given injection INTRA-PROCEDURE MED, Starting Nicole 04/22/18 at 1033, Until Nicole 04/22/18 at 1043 25 mcg Given 04/22/2018 10:33 AM CDT 04/22/2018 11:28 AM CDT 500 Units heparin lock flush PF syringe 500 Units Given 500 Units, Intra-catheter, ONCE PRN, 1 dose, Starting Nicole 04/22/18 at 0838, Until Nicole 04/22/18 at 1128, Catheter flush, When de-accessing a port-a-cath pack with 5 mL heparin (100 units/mL) unless contraindicated. NOTE: This is a HIGH ALERT Medication., 04/22/2018 9:18 AM CDT 1 mg LORazepam (ATIVAN) injection 0.5-1 mg Given 0.5-1 mg, Intravenous, ONCE, 1 dose, Nicole 04/22/18 at 0845, PROTECT FROM LIGHT, in this encounter
--- OUTSIDE RECORDS SUMMARY | 2018-07-21 13:09 | XMS REPORT | CCD ---
Author Author [facility] Organization [facility] Address [address] [place] [address] Phone Care Team Providers Care [facility] Att[facility] Name Role Phone PP Unavailable CCM Unavailable Summary Purpose Interface Exchange Insurance Providers Payer name Policy type / Coverage type Covered democrat ID Effective Begin Date Effective End Date WPS Medicare Part B Medicare Part B [id number] Unknown [employer] - Medicare Part B [id number] Unknown Family history Sister Diagnosis Age At Onset Cancer Unknown Father Diagnosis Age At Onset Heart Attack Unknown Stroke Unknown Coronary Artery Disease Unknown Social History Social History Element Codes Description Effective Dates Marital status Unknown 12/20/2014 Number of children Unknown 0 12/20/2014 Employment Unknown Retired 12/20/[address]: 50511801 Currently smokes tobacco 12/20/2014 Number of years using tobacco Unknown 40 - 50 12/20/2014 Number of cigarettes/day Unknown < 10 12/20/[address]: 722415 Currently drinks alcohol 12/20/2014 Allergies, Adverse Reactions, Alerts Substance Reaction Codes Entered Date Inactivated Date Status * NO KNOWN DRUG ALLERGIES Unknown 07/21/2016 No Inactive Date Active * NO KNOWN FOOD ALLERGIES Unknown 12/20/2014 No Inactive Date Active Past Medical History Illness Codes Condition Status Onset Date Resolved Date Cellulitis of left lower limb ICD-9: 682.6 ICD-10: L03.116 Active 07/14/2018 Unknown Cellulitis of right lower limb ICD-9: 682.6 ICD-10: L03.115 Active 07/14/2018 Unknown Chronic pain syndrome ICD-9: 338.4 ICD-10: [...] Problems Condition Codes Effective Dates Condition Status Cellulitis of left lower limb ICD-9: 682.6 ICD-10: L03.116 07/14/2018 Active Cellulitis of right lower limb ICD-9: 682.6 ICD-10: L03.115 07/14/2018 Active Chronic pain syndrome ICD-9: 338.4 ICD-10: [...] Instructions Pristiq 100 mg tablet,extended release RxNorm: 697399 1 Tablet(s) PO QPM 07/05/2018 06/29/2019 Active 10/13/2016 9:27:26 AM ipratropium-albuterol 0.5 mg-3 mg(2.5 mg base)/3 mL nebulization soln RxNorm: 5239783 1 inhale INH TID 07/05/2018 Active Basaglar KwikPen U-100 Insulin 100 unit/mL (3 mL) subcutaneous RxNorm: 1033509 15 Unit(s) SQ QPM 06/14/20182018 Active direction change EMLA 2.5 %-2.5 % topical cream RxNorm: 676132 1 Application TOP TID as needed pain at port site 05/12/2018 No Stop Date Active furosemide 20 mg tablet RxNorm: 231972 TAKE 1 TABLET BY MOUTH DAILY 04/26/2018 11/21/2018 Active Generic For:LASIX 20MG 04/26/2018 8:51:52 AM Xifaxan 550 mg tablet RxNorm: 859516 TAKE 2 TABLETS BY MOUTH TWICE DAILY 04/26/2018 11/21/2018 Active 04/26/2018 8:58:24 AM nicotine 7 mg/24 hr daily transdermal patch RxNorm: 359347 1 Patch TD daily Put on in the morning and take off at night 04/15/2018 04/28/2018 Inactive nicotine 14 mg/24 hr daily transdermal patch RxNorm: 991528 1 Patch TD daily x1 week -Put on in the morning and take off at night, then decrease to 7 mg patches x 1 week 04/15/2018 04/21/2018 Inactive nicotine 21 mg/24 hr daily transdermal patch RxNorm: 859291 1 Patch PO daily 04/15/2018 05/12/2018 Inactive Bydureon 2 mg/0.65 mL subcutaneous pen injector RxNorm: 1555303 2 Milligram(s) SQ QW 03/26/2018 08/22/2018 Active please give needles 31guage needles - deliver to filiberto at her work please ipratropium-albuterol 0.5 mg-3 mg(2.5 mg base)/3 mL nebulization soln RxNorm: 1579022 1 INH daily 03/15/20182017 Inactive Ventolin HFA 90 mcg/actuation aerosol inhaler RxNorm: 069657 INHALE 2 PUFFS BY MOUTH FOUR TIMES DAILY NEEDED 02/24/2018 09/21/2018 Active Basaglar KwikPen U-100 Insulin 100 unit/mL (3 mL) subcutaneous RxNorm: 7943506 10 Unit(s) SQ QPM 01/26/20182017 Inactive Basaglar KwikPen U-100 Insulin 100 unit/mL (3 mL) subcutaneous RxNorm: 4369831 10 Unit(s) SQ QPM 01/26/20182017 Inactive Verna Mckoy U-100 Insulin 100 unit/mL (3 mL) subcutaneous pen RxNorm: 391047 10 Unit(s) SQ daily 01/14/2018 Inactive ipratropium-albuterol 0.5 mg-3 mg(2.5 mg base)/3 mL nebulization soln RxNorm: 9184880 1 INH tid x 3 days, bid x 3 days and q2H prn 01/1403/14/2018 Inactive morphine ER 15 mg tablet,extended release RxNorm: 871292 1 Tablet(s) PO TID as needed 01/06/2018 02/04/2018 Inactive furosemide 20 mg tablet RxNorm: 213159 1 Tablet(s) PO daily 04/25/2018 Inactive Xifaxan 550 mg tablet RxNorm: 163286 2 Tablet(s) PO BID 201704/25/2018 Inactive potassium chloride ER 20 mEq tablet,extended release RxNorm: 948620 1 Tablet(s) BID 08/28/2017 08/22/2018 Active Exelon Patch 4.6 mg/24 hr transdermal RxNorm: 526380 1 TD daily 08/28/2017 08/22/2018 Active trazodone 50 mg tablet RxNorm: 154506 1 Tablet(s) PO QPM as needed insomnia TAKE 1 TABLET BY MOUTH ONCE DAILY NEEDED 08/28/2017 08/22/2018 Active Generic For: DESYREL 50 MG TABLET 11/12/2016 9:00:24 AM Remeron 15 mg tablet RxNorm: 094610 1 Tablet(s) PO QPM TAKE 1 TABLET BY MOUTH EVERY NIGHT AT BEDTIME 08/28/20172018 Active Generic For:REMERON 15MG 11/12 9:00:28 AM Protonix 20 mg tablet,delayed release RxNorm: 148957 1 Tablet(s) PO daily 08/28/2017 08/22/2018 Active Pristiq 50 mg tablet,extended release RxNorm: 030887 1 Tablet(s) PO daily 08/28/2017 07/04/2018 Inactive 10/13/2016 9:27:26 AM Ventolin HFA 90 mcg/actuation aerosol inhaler RxNorm: 441821 2 INHALE 2 PUFFS BY MOUTH FOUR TIMES DAILY NEEDED 07/29/2017 02/23/2018 Inactive morphine ER 15 mg tablet,extended release RxNorm: 633669 1 Tablet(s) PO TID as needed 07/29/2017 08/27/2017 Inactive Ventolin HFA 90 mcg/actuation aerosol inhaler RxNorm: 890248 INHALE 2 PUFFS BY MOUTH FOUR TIMES DAILY NEEDED 07/10/2017 07/28/2017 Inactive Phenergan-Codeine 6.25 mg-10 mg/5 mL syrup RxNorm: 077800 5 Milliliter(s) PO Q6 as needed cough 07/10/2017 07/23/2017 Inactive albuterol sulfate 90 mcg/actuation breath activated powder inhaler RxNorm: 5202238 2 Puff(s) INH QID as needed dyspnea 06/02/2017 12/27/2017 Inactive morphine ER 15 mg tablet,extended release RxNorm: 052486 1 Tablet(s) PO TID as needed 06/02/2017 07/01/2017 Inactive albuterol sulfate 90 mcg/actuation breath activated powder inhaler RxNorm: 9034732 2 Puff(s) INH QID as needed dyspnea 05/28/2017 06/01/2017 Inactive Bydureon 2 mg/0.65 mL subcutaneous pen injector RxNorm: 4188523 2 Milligram(s) SQ QW 04/02/2017 08/29/2017 Inactive please give needles 31guage needles - deliver to filiberto at her work please lactulose 20 gram/30 mL oral solution RxNorm: 645309 2 Tablespoon(s) PO QID 03/05/2017 09/28/2017 Inactive furosemide 20 mg tablet RxNorm: 153833 1 Tablet(s) PO daily 09/28/2017 Inactive lactulose 10 gram/15 mL oral solution RxNorm: 706615 30 Milliliter(s) PO BID 02/05/2017 No Stop Date Active potassium chloride ER 20 mEq tablet,extended release RxNorm: 890494 1 Tablet(s) BID 02/05/2017 08/27/2017 Inactive Remeron 15 mg tablet RxNorm: 826739 1 Tablet(s) PO QPM TAKE 1 TABLET BY MOUTH EVERY NIGHT AT BEDTIME 02/05/20172017 Inactive Generic For:REMERON 15MG 9:00:28 AM Protonix 20 mg tablet,delayed release RxNorm: 261528 1 Tablet(s) PO daily 02/05/2017 08/27/2017 Inactive trazodone 50 mg tablet RxNorm: 683078 1 Tablet(s) PO QPM as needed insomnia TAKE 1 TABLET BY MOUTH ONCE DAILY NEEDED 02/05/2017 08/27/2017 Inactive Generic For: DESYREL 50 MG TABLET 11/12/2016 9:00:24 AM morphine ER 15 mg tablet,extended release RxNorm: 801808 1 Tablet(s) PO TID as needed 02/05/2017 03/06/2017 Inactive Lantus Solostar 100 unit/mL (3 mL) subcutaneous insulin pen RxNorm: 951284 15 Unit(s) SQ daily 02/05/2017 04/01/2017 Inactive Xifaxan 550 mg tablet RxNorm: 708913 2 Tablet(s) PO BID 201609/02/2017 Inactive Pristiq 50 mg tablet,extended release RxNorm: 380419 1 Tablet(s) PO daily 02/05/2017 08/27/2017 Inactive 10/13/2016 9:27:26 AM Exelon Patch 4.6 mg/24 hr transdermal RxNorm: 603460 1 TD daily 02/05/2017 08/27/2017 Inactive furosemide 20 mg tablet RxNorm: 526374 1 Tablet(s) PO daily 03/04/2017 Inactive Vitamin D3 1,000 unit tablet RxNorm: 779248 2 Tablet(s) PO QHS 01/22/2017 No Stop Date Active furosemide 20 mg tablet RxNorm: 529628 Tablet(s) PO 01/22/2017 02/04/2017 Inactive Xifaxan 550 mg tablet RxNorm: 821406 2 Tablet(s) PO BID 201602/04/2017 Inactive potassium chloride ER 20 mEq tablet,extended release RxNorm: 277109 2 Tablet(s) BID 1 Tablet(s) PO daily 01/22/20172016 Inactive Lasix 40 mg tablet RxNorm: 402300 TAKE ONE TABLET BY MOUTH IN THE MORNING AND ONE-HALF TABLET IN THE AFTERNOON 12/25/2016 01/21/2017 Inactive Ativan 1 mg tablet RxNorm: 081791 1 Tablet(s) PO Q6 as needed anxiety 12/25/2016 01/21/2017 Inactive lactulose 10 gram/15 mL oral solution RxNorm: 469197 15 Milliliter(s) PO BID 12/25/2016 02/04/2017 Inactive lactulose 20 gram/30 mL oral solution RxNorm: 164960 2 Tablespoon(s) PO QID 12/24/2016 12/24/2016 Inactive nicotine 7 mg/24 hr daily transdermal patch RxNorm: 972314 1 Patch TD daily Put on in the morning and take off at night 12/24/2016 01/21/2017 Inactive cefdinir 300 mg capsule RxNorm: 542535 1 Capsule(s) PO BID 12/31/2016 Inactive Zithromax 250 mg tablet RxNorm: 769814 1 Tablet(s) PO daily 12/26/2016 Inactive prednisone 20 mg tablet RxNorm: 971425 2 Tablet(s) PO QAM 12/2212/24/2016 Inactive Ventolin HFA 90 mcg/actuation aerosol inhaler RxNorm: 075141 2 inhale NASAL QID as needed INHALE 2 PUFFS BY MOUTH FOUR TIMES DAILY NEEDED 12/12/2016 07/09/2017 Inactive 04/07/2016 1:44:46 PM spironolactone 50 mg tablet RxNorm: 871267 TAKE 1 TABLET BY MOUTH ONCE DAILY 11/14/2016 11/08/2017 Inactive Generic For:ALDACTONE 50MG 11/12/2016 9:00:19 AM trazodone 50 mg tablet RxNorm: 585919 TAKE 1 TABLET BY MOUTH ONCE DAILY NEEDED 11/12/2016 02/04/2017 Inactive Generic For:DESYREL 50 MG TABLET 11/12/2016 9:00: 24 AM Remeron 15 mg tablet RxNorm: 619147 TAKE 1 TABLET BY MOUTH EVERY NIGHT AT BEDTIME 11/12/2016 01/10/2017 Inactive Generic For:REMERON 15MG 11/12/2016 9:00:28 AM morphine ER 15 mg tablet,extended release RxNorm: 777134 1 Tablet(s) PO TID 10/22/2016 11/20/2016 Inactive Lasix 40 mg tablet RxNorm: 092764 TAKE ONE TABLET BY MOUTH DAILY 10/13/2016 12/24/2016 Inactive Generic For:LASIX 40MG 10/13/2016 9:27:30 AM Pristiq 50 mg tablet,extended release RxNorm: 308516 TAKE 1 TABLET BY MOUTH ONCE DAILY 10/13/2016 02/04/2017 Inactive 10/13/2016 9:27:26 AM nicotine 7 mg/24 hr daily transdermal patch RxNorm: 680939 1 Patch TD daily Put on in the morning and take off at night 10/03/2016 10/23/2016 Inactive nicotine 7 mg/24 hr daily transdermal patch RxNorm: 378433 1 Patch TD daily Put on in the morning and take off at night 09/23/2016 10/02/2016 Inactive nicotine 7 mg/24 hr daily transdermal patch RxNorm: 001417 1 Patch TD daily Put on in the morning and take off at night 09/18/2016 09/22/2016 Inactive glimepiride 4 mg tablet RxNorm: 623593 TAKE TWO TABLETS BY MOUTH DAILY IN THE MORNING 09/15/2016 01/21/2017 Inactive Generic For:*AMARYL 4MG 09/13/2016 9:08:43 AM Remeron 15 mg tablet RxNorm: 137050 1 Tablet(s) PO QHS 201611/11/2016 Inactive deliver to patient's sister FILIBERTO nicotine 7 mg/24 hr daily transdermal patch RxNorm: 508049 1 Patch TD daily Put on in the morning and take off at night 08/22/2016 08/28/2016 Inactive nicotine 14 mg/24 hr daily transdermal patch RxNorm: 894439 1 Patch TD daily x1 week -Put on in the morning and take off at night, then decrease to 7 mg patches x 1 week 08/22/2016 08/28/2016 Inactive nicotine 7 mg/24 hr daily transdermal patch RxNorm: 181291 1 Patch TD daily Put on in the morning and take off at night 08/21/2016 08/21/2016 Inactive nicotine 7 mg/24 hr daily transdermal patch RxNorm: 085382 1 Patch TD daily Put on in the morning and take off at night 08/21/2016 08/20/2016 Inactive nicotine 14 mg/24 hr daily transdermal patch RxNorm: 301059 1 Patch TD daily -Put on in the morning and take off at night, then decrease to 7 mg patches x 1 week 08/21/2016 08/20/2016 Inactive nicotine 14 mg/24 hr daily transdermal patch RxNorm: 332488 1 Patch TD daily x1 week -Put on in the morning and take off at night, then decrease to 7 mg patches x 1 week 08/21/2016 08/21/2016 Inactive potassium chloride ER 20 mEq tablet,extended release RxNorm: 963141 Tablet(s) 1 Tablet(s) PO daily 08/14/2016 01/21/2017 Inactive Remeron 15 mg tablet RxNorm: 150237 1 Tablet(s) PO QHS 201509/14/2016 Inactive deliver to patient's sister FILIBERTO omeprazole 20 mg capsule,delayed release RxNorm: 367074 TAKE 1 CAPSULE BY MOUTH TWICE DAILY 07/15/2016 01/21/2017 Inactive Generic For:PRILOSEC 20MG 07/15/2016 8: 59:16 AM trazodone 50 mg tablet RxNorm: 291576 Tablet(s) Tablet(s) TAKE ONE TABLET BY MOUTH DAILY NEEDED 07/15/20162016 Inactive Pristiq 50 mg tablet,extended release RxNorm: 776582 TAKE 1 TABLET BY MOUTH ONCE DAILY 06/16/2016 10/12/2016 Inactive 06/16/2016 9:02:33 AM Lasix 40 mg tablet RxNorm: 917550 TAKE ONE TABLET BY MOUTH DAILY 06/16/2016 10/12/2016 Inactive Generic For:LASIX 40MG 06/16/2016 9:02:29 AM Ventolin HFA 90 mcg/actuation aerosol inhaler RxNorm: 014379 2 inhale NASAL QID as needed INHALE 2 PUFFS BY MOUTH FOUR TIMES DAILY NEEDED 04/22/2016 11/17/2016 Inactive 04/07/2016 1:44:46 PM mupirocin 2 % topical ointment RxNorm: 930268 1 Application TOP BID 04/22/2016 05/01/2016 Inactive apply in nose twice daily Ventolin HFA 90 mcg/actuation aerosol inhaler RxNorm: 671365 INHALE 2 PUFFS BY MOUTH FOUR TIMES DAILY NEEDED 04/07/2016 04/21/2016 Inactive 04/07/2016 1:44:46 PM trazodone 50 mg tablet RxNorm: 024331 Tablet(s) Tablet(s) TAKE ONE TABLET BY MOUTH DAILY NEEDED 03/18/20162015 Inactive potassium chloride ER 20 mEq tablet,extended release RxNorm: 901697 1 Tablet(s) PO daily 03/17/2016 08/13/2016 Inactive Pristiq 50 mg tablet,extended release RxNorm: 612169 1 Tablet(s) PO daily 02/18/2016 06/15/2016 Inactive Lasix 40 mg tablet RxNorm: 236692 TAKE ONE TABLET BY MOUTH DAILY 02/18/2016 06/15/2016 Inactive Generic For:LASIX 40MG 02/16/2016 9:03:51 AM glimepiride 4 mg tablet RxNorm: 068634 TAKE TWO TABLETS BY MOUTH DAILY IN THE MORNING 02/18/2016 09/14/2016 Inactive Generic For:*AMARYL 4MG 02/16/2016 9:03:44 AM Ventolin HFA 90 mcg/actuation aerosol inhaler RxNorm: 877182 INHALE 2 PUFFS BY MOUTH FOUR TIMES DAILY NEEDED 02/18/2016 04/06/2016 Inactive 02/16/2016 9:04:47 AM trazodone 50 mg tablet RxNorm: 012801 Tablet(s) TAKE ONE TABLET BY MOUTH DAILY NEEDED 01/17/2016 03/16/2016 Inactive Generic For:DESYREL 50 MG TABLET 08/17/2015 9:45:00 AM ciprofloxacin 500 mg tablet RxNorm: 659460 1 Tablet(s) PO BID 01/04/2016 01/10/2016 Inactive Ventolin HFA 90 mcg/actuation aerosol inhaler RxNorm: 960806 INHALE 2 PUFFS BY MOUTH FOUR TIMES DAILY NEEDED 01/02/2016 02/17/2016 Inactive 01/02/2016 1:45:42 PM omeprazole 20 mg capsule,delayed release RxNorm: 954112 TAKE 1 CAPSULE BY MOUTH TWICE DAILY 12/18/2015 07/14/2016 Inactive Generic For:PRILOSEC 20MG 12/18/2015 10 :05:45 AM Ventolin HFA 90 mcg/actuation aerosol inhaler RxNorm: 125196 2 INH QID as needed 11/19/2015 01/01/2016 Inactive dc PROAIR trazodone 100 mg tablet RxNorm: 012127 1 Tablet(s) PO QHS 11/1512/15/2015 Inactive spironolactone 50 mg tablet RxNorm: 673406 TAKE 1 TABLET BY MOUTH ONCE DAILY 10/24/2015 10/17/2016 Inactive Generic For:ALDACTONE 50MG 10/23/2015 11:26:43 AM mupirocin 2 % topical ointment RxNorm: 454981 1 Application TOP QID 10/23/2015 10/29/2015 Inactive Lasix 40 mg tablet RxNorm: 635489 TAKE ONE TABLET BY MOUTH DAILY 10/22/2015 02/17/2016 Inactive Generic For:LASIX 40MG 10/22/2015 4:29:14 PM10/19/2015 9:43:00 AM Pristiq 50 mg tablet,extended release RxNorm: 449371 1 Tablet(s) PO daily 10/19/2015 02/15/2016 Inactive potassium chloride ER 20 mEq tablet,extended release RxNorm: 053651 1 Tablet(s) PO daily 10/19/2015 03/16/2016 Inactive trazodone 50 mg tablet RxNorm: 392884 Tablet(s) TAKE ONE TABLET BY MOUTH DAILY NEEDED 10/19/2015 12/17/2015 Inactive Generic For:DESYREL 50 MG TABLET 08/17/2015 9:45:00 AM Ventolin HFA 90 mcg/actuation aerosol inhaler RxNorm: 929248 2 INH QID as needed 10/08/2015 11/18/2015 Inactive dc PROAIR prednisone 20 mg tablet RxNorm: 929951 3 Tablet(s) PO QAM 09/0509/07/2015 Inactive trazodone 50 mg tablet RxNorm: 330512 TAKE ONE TABLET BY MOUTH DAILY NEEDED 08/17/2015 10/15/2015 Inactive Generic For:DESYREL 50 MG TABLET 08/17/2015 9:45: 00 AM morphine ER 15 mg tablet,extended release RxNorm: 460978 1 Tablet(s) PO TID 08/07/2015 09/05/2015 Inactive glimepiride 4 mg tablet RxNorm: 903599 TAKE TWO TABLETS BY MOUTH DAILY IN THE MORNING 07/23/2015 02/17/2016 Inactive Generic For:*AMARYL 4MG 07/23/2015 10:52: 06 AM potassium chloride ER 20 mEq tablet,extended release RxNorm: 856616 1 Tablet(s) PO daily 06/29/2015 06/28/2015 Inactive potassium chloride ER 20 mEq tablet,extended release RxNorm: 663772 1 Tablet(s) PO daily 06/29/2015 10/18/2015 Inactive Lasix 40 mg tablet RxNorm: 900899 1 Tablet(s) PO daily 201410/21/2015 Inactive trazodone 50 mg tablet RxNorm: 785548 1 Tablet(s) PO daily as needed 06/22/2015 06/21/2015 Inactive Pristiq 50 mg tablet,extended release RxNorm: 753962 1 Tablet(s) PO daily 06/22/2015 10/18/2015 Inactive trazodone 50 mg tablet RxNorm: 996197 1 Tablet(s) PO daily as needed 06/22/2015 08/16/2015 Inactive ProAir HFA 90 mcg/actuation aerosol inhaler RxNorm: 8980455 2 Puff(s) INH QID as needed dyspnea 06/12/2015 10/07/2015 Inactive omeprazole 20 mg capsule,delayed release RxNorm: 186399 1 Capsule(s) PO BID 05/31/2015 12/17/2015 Inactive DC protonix pantoprazole 40 mg tablet,delayed release RxNorm: 315132 1 Tablet(s) PO daily 05/25/2015 05/30/2015 Inactive Pristiq 50 mg tablet,extended release RxNorm: 127096 1 Tablet(s) PO daily 03/23/2015 06/20/2015 Inactive Lasix 40 mg tablet RxNorm: 136408 1 Tablet(s) PO daily 201405/14/2015 Inactive morphine ER 15 mg tablet,extended release RxNorm: 522800 1 Tablet(s) PO TID 03/06/2015 04/04/2015 Inactive Klor-Con M20 mEq tablet,extended release RxNorm: 0195885 1 Tablet(s) PO daily 02/22/2015 05/14/2015 Inactive ProAir HFA 90 mcg/actuation aerosol inhaler RxNorm: 8893959 2 Puff(s) INH QID as needed dyspnea 02/15/2015 06/11/2015 Inactive albuterol sulfate 90 mcg/actuation breath activated powder inhaler RxNorm: 4413422 2 Puff(s) INH QID as needed dyspnea 02/15/2015 09/10/2015 Inactive ProAir HFA 90 mcg/actuation aerosol inhaler RxNorm: 7101369 2 Puff(s) INH QID as needed dyspnea 02/15/2015 02/14/2015 Inactive morphine ER 15 mg tablet,extended release RxNorm: 423213 1 Tablet(s) PO TID 01/25/2015 02/23/2015 Inactive morphine 15 mg capsule RxNorm: 674325 1 Capsule(s) PO TID 01/2301/24/2015 Inactive morphine 15 mg capsule RxNorm: 839229 1 Capsule(s) PO TID 01/0901/22/2015 Inactive omeprazole 40 mg capsule,delayed release RxNorm: 060892 1 Capsule(s) PO daily 12/28/2014 12/27/2014 Inactive DC protonix omeprazole 40 mg capsule,delayed release RxNorm: 516350 1 Capsule(s) PO daily 12/28/2014 05/30/2015 Inactive DC protonix glimepiride 4 mg tablet RxNorm: 517622 2 Tablet(s) PO QAM 12/2707/22/2015 Inactive nicotine 21 mg/24 hr daily transdermal patch RxNorm: 079171 1 Patch PO daily 12/26/2014 01/22/2015 Inactive morphine 15 mg capsule RxNorm: 174165 1 Capsule(s) PO TID 12/2001/08/2015 Inactive Pristiq 50 mg tablet,extended release RxNorm: 024222 1 Tablet(s) PO daily 12/20/2014 01/18/2015 Inactive pantoprazole 40 mg tablet,delayed release RxNorm: 160170 1 Tablet(s) PO daily 12/20/2014 12/27/2014 Inactive magnesium oxide 400 mg tablet RxNorm: 055722 1 Tablet(s) PO daily No Start Date Active melatonin 3 mg tablet RxNorm: 269507 1 Tablet(s) PO daily No Start Date Active Novolin R 100 unit/mL injection solution RxNorm: 266542 ssi: 4u 150-200, 1e750-576 , 8u 251-300, 10u 301-350, 12u 351 Unit(s) Inj No Start Date Active 12u 351-400 over 351 give 12 and call ipratropium-albuterol 0.5 mg-3 mg(2.5 mg base)/3 mL nebulization soln RxNorm: 3155190 1 INH q2H prn No Start Date 01/2018 Inactive EMLA 2.5 %-2.5 % topical cream RxNorm: 144535 1 Application TOP TID as needed pain at port site No Start Date 2017 Inactive glimepiride 4 mg tablet RxNorm: 525418 2 Tablet(s) PO QAM No Start Date 12/26/2014 Inactive Exelon Patch 4.6 mg/24 hr transdermal RxNorm: 030690 1 TD daily No Start Date 02/04/2017 Inactive spironolactone 50 mg tablet RxNorm: 605169 1 Tablet(s) PO daily No Start Date 05/14/2015 Inactive Lasix 40 mg tablet RxNorm: 194205 1 Tablet(s) PO daily No Start Date 03/22/2015 Inactive Protonix 20 mg tablet,delayed release RxNorm: 823599 1 Tablet(s) PO daily No Start Date 02/04/2017 Inactive Ventolin HFA 90 mcg/actuation aerosol inhaler RxNorm: 375408 2 INH QID as needed No Start Date 10/07/2015 Inactive dc PROAIR lactulose 20 gram/30 mL oral solution RxNorm: 211852 2 Tablespoon(s) PO QID No Start Date 12/23/2016 Inactive Xifaxan 550 mg tablet RxNorm: 017766 2 Tablet(s) PO daily No Start Date 01/21/2017 Inactive Klor-Con M20 mEq tablet,extended release RxNorm: 360233 1 Tablet(s) PO daily No Start Date 02/21/2015 Inactive Vitamin D3 1,000 unit tablet RxNorm: 167435 1 Tablet(s) PO TID No Start Date 01/21/2017 Inactive Trazadone Oral RxNorm : oral No Start Date 03/18/2016 Inactive Levemir 100 unit/mL subcutaneous solution RxNorm: 936945 10 Unit(s) SQ daily No Start Date [...] 07/10/2008 completed Assessments Condition Codes Effective Dates Cellulitis of left lower limb ICD-10: L03.116 ICD-9: 682.6 07/14/2018 Cellulitis of right lower limb ICD-10: L03.115 ICD-9: 682.6 07/14/2018 Essential (primary) hypertension ICD-10: I10 ICD-9: 401.1 [...] Visit Reason For Visit Effective Dates Notes rash 07/14/2018 diabetes mellitus 07/05/2018 diabetes mellitus 03/18/2018 Annual [...] Metabolic Ord15 CALCIUM 8.2 mg/dL 06/02/2018 %Hba1C Egg315 % HbA1c 61433-5 8.2 % 01/06/2018 %Hba1C Bhz395 Gluc Ave 189 mg/dL 01/06/2018 Cbc With [...] 27.8 pg 01/06/2018 Cbc With Differential Ord2 Harding% 11.2 % 01/06/2018 Cbc With Differential Ord2 MCHC 32.8 pg 01/06/2018 Cbc With Differential Ord2 Eos% 4.0 % 01/06/2018 Cbc With Differential Ord2 Baso% 0.3 % 01/06/2018 Cbc With Differential Ord2 PLT 48 K/ul 01/06/2018 Cbc With Differential Ord2 Neut ABS# 2.22 K/ul 01/06/2018 Cbc With Differential Ord2 RDW 17.1 % 01/06/2018 Cbc With Differential Ord2 Lymph ABS# 0.73 K/ul 01/06/2018 Cbc With Differential Ord2 Harding ABS# 0.4 K/ul 01/06/2018 Cbc With Differential Ord2 Eos ABS# 0.1 K/ul 01/06/2018 Cbc With Differential Ord2 Baso ABS# 0.0 K/ul 01/06/2018 Pt [id number] PT 16.1 seconds 01/06/2018 Pt [id number] INR 1.3 01/06/2018 Pt Jch7621 Low Intensity - 1.5-2.0 01/06/2018 Pt Ofs5504 Mod intensity - 2.0-3.0 01/06/2018 Pt Eke9304 Hi intensity - 3.0-4.0 01/06/2018 Carbohydrate Antigen 19-9 071914 CA 19-9 130 U/mL 12/18/2017 Afp Serum Tumor Marker 300159 ALPHA- FETOPROTEIN TM 2.1 ng/mL 12/01/2017 Pt Ftk7974 PT 16.5 seconds 11/30/2017 Pt Lfn9485 INR 1.4 11/30/2017 Pt Dkp5924 Low Intensity - 1.5-2.0 11/30/2017 Pt Soj0797 Mod intensity - 2.0-3.0 11/30/2017 Pt Mhi2652 Hi intensity - 3.0-4.0 11/30/2017 Cbc With Differential Ord2 WBC 3.49 K/ul 11/30/2017 Cbc With Differential Ord2 RBC 3.88 M/ul 11/30/2017 Cbc With Differential Ord2 HGB 10.8 g/dl 11/30/2017 Cbc With Differential Ord2 Neut% 61.8 % 11/30/2017 Cbc With Differential Ord2 HCT 33.4 % 11/30/2017 Cbc With Differential Ord2 Lymph% 22.1 % 11/30/2017 Cbc With Differential Ord2 MCV 86.1 fl 11/30/2017 Cbc With Differential Ord2 Harding% 11.2 % 11/30/2017 Cbc With Differential Ord2 MCH 27.8 pg 11/30/2017 Cbc With Differential Ord2 Eos% 4.9 % 11/30/2017 Cbc With Differential Ord2 MCHC 32.3 pg 11/30/2017 Cbc With Differential Ord2 PLT 46 K/ul 11/30/2017 Cbc With Differential Ord2 Baso% 0.0 % 11/30/2017 Cbc With Differential Ord2 Neut ABS# 2.16 K/ul 11/30/2017 Cbc With Differential Ord2 RDW 17.9 % 11/30/2017 Cbc With Differential Ord2 Lymph ABS# 0.77 K/ul 11/30/2017 Cbc With Differential Ord2 Harding ABS# 0.4 K/ul 11/30/2017 Cbc With Differential Ord2 Eos ABS# 0.2 K/ul 11/30/2017 Cbc With Differential Ord2 Baso ABS# 0.0 K/ul 11/30/2017 Comp Metabolic Xgx290 NA 134 mEq/L 11/30/2017 Comp Metabolic Lhm521 K 3.7 mEq/L 11/30/2017 Comp Metabolic Upc223 CL 102 mEq/L 11/30/2017 Comp Metabolic Wdm365 CO2 26.0 mEq/L 11/30/2017 Comp Metabolic Jip971 ANION GAP 10 11/30/2017 Comp Metabolic Bfi135 GLUCOSE 295 mg/dL 11/30/2017 Comp Metabolic Prk944 Creat 0.5 mg/dL 11/30/2017 Comp Metabolic Vpe396 eGFR 178 ml/min/1.73m2 11/30/2017 Comp Metabolic Rml426 BUN 11 mg/dL 11/30/2017 Comp Metabolic Did664 B/C Ratio 22.0 Ratio 11/30/2017 Comp Metabolic Qmb848 CALCIUM 7.9 mg/dL 11/30/2017 Comp Metabolic Jls448 ALK PHOS 167 U/L 11/30/2017 Comp Metabolic Aob537 AST(SGOT) 52 U/L 11/30/2017 Comp Metabolic Xqm551 ALT(SGPT) 31 U/L 11/30/2017 Comp Metabolic Kan234 BILI T 1.5 mg/dL 11/30/2017 Comp Metabolic Rip099 ALBUMIN 2.8 g/dL 11/30/2017 Comp Metabolic Nug312 TPRO 6.2 g/dL 11/30/2017 Comp Metabolic Geq866 GLOB 3.4 g/dL 11/30/2017 Comp Metabolic Wdd829 A/G Ratio 0.8 Ratio 11/30/2017 Comp Metabolic Jzf994 Osmo 279 mOsmo 11/30/2017 Afp Serum Tumor Marker 194800 ALPHA- FETOPROTEIN TM 1.7 ng/mL 09/23/2017 Bili D Ord93 BILI D 0.5 mg/dL 09/22/2017 Bili D Ord93 BILI I 1.0 mg/dL 09/22/2017 Cbc With Differential Ord2 WBC 5.09 K/ul 09/22/2017 Cbc With Differential Ord2 RBC 4.24 M/ul 09/22/2017 Cbc With Differential Ord2 HGB 11.6 g/dl 09/22/2017 Cbc With Differential Ord2 Neut% 67.4 % 09/22/2017 Cbc With Differential Ord2 HCT 35.3 % 09/22/2017 Cbc With Differential Ord2 Lymph% 19.4 % 09/22/2017 Cbc With Differential Ord2 MCV 83.3 fl 09/22/2017 Cbc With Differential Ord2 MCH 27.4 pg 09/22/2017 Cbc With Differential Ord2 Harding% 10.0 % 09/22/2017 Cbc With Differential Ord2 Eos% 2.8 % 09/22/2017 Cbc With Differential Ord2 MCHC 32.9 pg 09/22/2017 Cbc With Differential Ord2 PLT 54 K/ul 09/22/2017 Cbc With Differential Ord2 Baso% 0.4 % 09/22/2017 Cbc With Differential Ord2 Neut ABS# 3.43 K/ul 09/22/2017 Cbc With Differential Ord2 RDW 16.4 % 09/22/2017 Cbc With Differential Ord2 Lymph ABS# 0.99 K/ul 09/22/2017 Cbc With Differential Ord2 Harding ABS# 0.5 K/ul 09/22/2017 Cbc With Differential Ord2 Eos ABS# 0.1 K/ul 09/22/2017 Cbc With Differential Ord2 Baso ABS# 0.0 K/ul 09/22/2017 Pt Myw7359 PT 15.9 seconds 09/22/2017 Pt [id number] INR 1.3 09/22/2017 Pt Dsx5613 Low Intensity - 1.5-2.0 09/22/2017 Pt Udc7681 Mod intensity - 2.0-3.0 09/22/2017 Pt Kud3684 Hi intensity - 3.0-4.0 09/22/2017 Comp Metabolic Lsb365 NA 138 mEq/L 09/22/2017 Comp Metabolic Qut117 K 3.6 mEq/L 09/22/2017 Comp Metabolic Whx842 CL 104 mEq/L 09/22/2017 Comp Metabolic Pka537 CO2 28.0 mEq/L 09/22/2017 Comp Metabolic Sgr449 ANION GAP 10 09/22/2017 Comp Metabolic Hfr695 GLUCOSE 295 mg/dL 09/22/2017 Comp Metabolic Pnu911 Creat 0.5 mg/dL 09/22/2017 Comp Metabolic Xzh239 eGFR 174 ml/min/1.73m2 09/22/2017 Comp Metabolic Gcg807 BUN 10 mg/dL 09/22/2017 Comp Metabolic Sdm078 B/C Ratio 19.6 Ratio 09/22/2017 Comp Metabolic Bib174 CALCIUM 8.9 mg/dL 09/22/2017 Comp Metabolic Zyx473 ALK PHOS 161 U/L 09/22/2017 Comp Metabolic Bdh925 AST(SGOT) 41 U/L 09/22/2017 Comp Metabolic Tgn196 ALT(SGPT) 27 U/L 09/22/2017 Comp Metabolic Tzy064 BILI T 1.5 mg/dL 09/22/2017 Comp Metabolic Csy858 ALBUMIN 3.2 g/dL 09/22/2017 Comp Metabolic Aqy579 TPRO 6.4 g/dL 09/22/2017 Comp Metabolic Kxw325 GLOB 3.2 g/dL 09/22/2017 Comp Metabolic Jsa865 A/G Ratio 1.0 Ratio 09/22/2017 Comp Metabolic Lud922 Osmo 286 mOsmo 09/22/2017 %Hba1C Gdl894 % HbA1c 57848-1 9.0 % 07/29/2017 %Hba1C Pdx570 Gluc Ave 212 mg/dL 07/29/2017 Comp Metabolic Tgo894 NA 136 mEq/L 07/29/2017 Comp Metabolic Mur553 K 3.7 mEq/L 07/29/2017 Comp Metabolic Bbx577 CL 102 mEq/L 07/29/2017 Comp Metabolic Wet741 CO2 27.0 mEq/L 07/29/2017 Comp Metabolic Tzq815 ANION GAP 11 07/29/2017 Comp Metabolic Vmy687 GLUCOSE 386 mg/dL 07/29/2017 Comp Metabolic Umo910 Creat 0.6 mg/dL 07/29/2017 Comp Metabolic Gzz889 eGFR 142 ml/min/1.73m2 07/29/2017 Comp Metabolic Lvf528 BUN 10 mg/dL 07/29/2017 Comp Metabolic Yow883 B/C Ratio 16.4 Ratio 07/29/2017 Comp Metabolic Kmt259 CALCIUM 8.1 mg/dL 07/29/2017 Comp Metabolic Dpw143 ALK PHOS 147 U/L 07/29/2017 Comp Metabolic Qwp731 AST(SGOT) 41 U/L 07/29/2017 Comp Metabolic Idz007 ALT(SGPT) 24 U/L 07/29/2017 Comp Metabolic Hqp360 BILI T 1.7 mg/dL 07/29/2017 Comp Metabolic Yon475 ALBUMIN 2.8 g/dL 07/29/2017 Comp Metabolic Yik515 TPRO 5.7 g/dL 07/29/2017 Comp Metabolic Yio220 GLOB 2.9 g/dL 07/29/2017 Comp Metabolic Hja862 A/G Ratio 0.9 Ratio 07/29/2017 Comp Metabolic Vwr606 Osmo 287 mOsmo 07/29/2017 Comp Metabolic Ocb882 NA 138 mEq/L 12/09/2016 Comp Metabolic Izc624 K 3.7 mEq/L 12/09/2016 Comp Metabolic Etf230 CL 105 mEq/L 12/09/2016 Comp Metabolic Gxk345 CO2 28.0 mEq/L 12/09/2016 Comp Metabolic Tta989 ANION GAP 9 12/09/2016 Comp Metabolic Qdp541 GLUCOSE 220 mg/dL 12/09/2016 Comp Metabolic Exn728 Creat 0.5 mg/dL 12/09/2016 Comp Metabolic Igy232 eGFR 164 ml/min/1.73m2 12/09/2016 Comp Metabolic Njj390 BUN 12 mg/dL 12/09/2016 Comp Metabolic Zxy273 B/C Ratio 22.2 Ratio 12/09/2016 Comp Metabolic Xfx165 CALCIUM 7.9 mg/dL 12/09/2016 Comp Metabolic Udn187 ALK PHOS 85 U/L 12/09/2016 Comp Metabolic Asz010 AST(SGOT) 26 U/L 12/09/2016 Comp Metabolic Zsj102 ALT(SGPT) 12 U/L 12/09/2016 Comp Metabolic Qdp535 BILI T 1.6 mg/dL 12/09/2016 Comp Metabolic Ewa785 ALBUMIN 2.9 g/dL 12/09/2016 Comp Metabolic Bbg771 TPRO 5.8 g/dL 12/09/2016 Comp Metabolic Hvy656 GLOB 2.9 g/dL 12/09/2016 Comp Metabolic Ohe011 A/G Ratio 1.0 Ratio 12/09/2016 Comp Metabolic Yhb185 Osmo 282 mOsmo 12/09/2016 Metabolic Ord15 NA [...] Ord15 CALCIUM 8.3 mg/dL 10/20/2016 Comp Metabolic Lit823 NA 137 mEq/L 07/31/2016 Comp Metabolic Rsj836 K 3.7 mEq/L 07/31/2016 Comp Metabolic Ugw606 CL 105 mEq/L 07/31/2016 Comp Metabolic Mjj353 CO2 24.0 mEq/L 07/31/2016 Comp Metabolic Yut870 ANION GAP 12 07/31/2016 Comp Metabolic Xvl719 GLUCOSE 205 mg/dL 07/31/2016 Comp Metabolic Fer595 Creat 0.7 mg/dL 07/31/2016 Comp Metabolic Dkx781 eGFR 132 ml/min/1.73m2 07/31/2016 Comp Metabolic Kmr165 BUN 12 mg/dL 07/31/2016 Comp Metabolic Moy671 B/C Ratio 18.5 Ratio 07/31/2016 Comp Metabolic Tji062 CALCIUM 8.4 mg/dL 07/31/2016 Comp Metabolic Jpa410 ALK PHOS 90 U/L 07/31/2016 Comp Metabolic Lqw511 AST(SGOT) 34 U/L 07/31/2016 Comp Metabolic Cnw695 ALT(SGPT) 22 U/L 07/31/2016 Comp Metabolic Vdc597 BILI T 2.2 mg/dL 07/31/2016 Comp Metabolic Bgh303 ALBUMIN 3.3 g/dL 07/31/2016 Comp Metabolic Jin306 TPRO 6.8 g/dL 07/31/2016 Comp Metabolic Qnk125 GLOB 3.5 g/dL 07/31/2016 Comp Metabolic Esw637 A/G Ratio 0.9 Ratio 07/31/2016 Comp Metabolic Grd329 Osmo 279 mOsmo 07/31/2016 Cbc With Differential Ord2 WBC 5.32 K/ul 07/31/2016 Cbc With Differential Ord2 RBC 4.36 M/ul 07/31/2016 Cbc With Differential Ord2 HGB 13.7 g/dl 07/31/2016 Cbc With Differential Ord2 Neut% 68.3 % 07/31/2016 Cbc With Differential Ord2 HCT 40.4 % 07/31/2016 Cbc With Differential Ord2 Lymph% 17.1 % 07/31/2016 Cbc With Differential Ord2 MCV 92.7 fl 07/31/2016 Cbc With Differential Ord2 Harding% 10.5 % 07/31/2016 Cbc With Differential Ord2 MCH 31.4 pg 07/31/2016 Cbc With Differential Ord2 Eos% 3.9 % 07/31/2016 Cbc With Differential Ord2 MCHC 33.9 pg 07/31/2016 Cbc With Differential Ord2 PLT 52 K/ul 07/31/2016 Cbc With Differential Ord2 Baso% 0.2 % 07/31/2016 Cbc With Differential Ord2 RDW 17.2 % 07/31/2016 Cbc With Differential Ord2 Neut ABS# 3.63 K/ul 07/31/2016 Cbc With Differential Ord2 Lymph ABS# 0.91 K/ul 07/31/2016 Cbc With Differential Ord2 Harding ABS# 0.6 K/ul 07/31/2016 Cbc With Differential Ord2 Eos ABS# 0.2 K/ul 07/31/2016 Cbc With Differential Ord2 Baso ABS# 0.0 K/ul 07/31/2016 %Hba1C Yps257 % HbA1c 71332-0 5.6 % 07/31/2016 %Hba1C Ghg178 Gluc Ave 114 mg/dL 07/31/2016 Lipid Ord30 [...] 32.4 pg 05/21/2016 Cbc With Differential Ord2 Harding% 10.6 % 05/21/2016 Cbc With Differential Ord2 MCHC 34.8 pg 05/21/2016 Cbc With Differential Ord2 Eos% 2.9 % 05/21/2016 Cbc With Differential Ord2 Baso% 0.2 % 05/21/2016 Cbc With Differential Ord2 PLT 58 K/ul 05/21/2016 Cbc With Differential Ord2 Neut ABS# 3.38 K/ul 05/21/2016 Cbc With Differential Ord2 RDW 18.6 % 05/21/2016 Cbc With Differential Ord2 Lymph ABS# 0.78 K/ul 05/21/2016 Cbc With Differential Ord2 Harding ABS# 0.5 K/ul 05/21/2016 Cbc With Differential Ord2 Eos ABS# 0.1 K/ul 05/21/2016 Cbc With Differential Ord2 Baso ABS# 0.0 K/ul 05/21/2016 Pt [id number] PT 16.4 seconds 05/21/2016 Pt Ysq1010 INR 1.4 05/21/2016 Pt Xxp7234 Low Intensity - 1.5-2.0 05/21/2016 Pt Gyt5115 Mod intensity - 2.0-3.0 05/21/2016 Pt Svp3302 Hi intensity - 3.0-4.0 05/21/2016 Comp Metabolic Ell135 NA 136 mEq/L 05/21/2016 Comp Metabolic Loo415 K 3.4 mEq/L 05/21/2016 Comp Metabolic Spl079 CL 102 mEq/L 05/21/2016 Comp Metabolic Hvx679 CO2 28.0 mEq/L 05/21/2016 Comp Metabolic Guo380 ANION GAP 9 05/21/2016 Comp Metabolic Oyn288 GLUCOSE 164 mg/dL 05/21/2016 Comp Metabolic Lkl432 Creat 0.5 mg/dL 05/21/2016 Comp Metabolic Ubn912 eGFR 175 ml/min/1.73m2 05/21/2016 Comp Metabolic Gpg171 BUN 8 mg/dL 05/21/2016 Comp Metabolic Pyu893 B/C Ratio 15.7 Ratio 05/21/2016 Comp Metabolic Nru095 CALCIUM 8.1 mg/dL 05/21/2016 Comp Metabolic Hvm370 ALK PHOS 77 U/L 05/21/2016 Comp Metabolic Jhv171 AST(SGOT) 62 U/L 05/21/2016 Comp Metabolic Fmh817 ALT(SGPT) 83 U/L 05/21/2016 Comp Metabolic Noc714 BILI T 2.3 mg/dL 05/21/2016 Comp Metabolic Lht854 ALBUMIN 2.9 g/dL 05/21/2016 Comp Metabolic Mnw441 TPRO 5.9 g/dL 05/21/2016 Comp Metabolic Nlt795 GLOB 3.0 g/dL 05/21/2016 Comp Metabolic Aci184 A/G Ratio 1.0 Ratio 05/21/2016 Comp Metabolic Rfw014 Osmo 274 mOsmo 05/21/2016 Afp Serum Tumor Marker [id number] ALPHA- FETOPROTEIN TM 1.8 ng/mL 04/29/2016 Cbc [...] 32.8 pg 04/28/2016 Cbc With Differential Ord2 Harding% 13.3 % 04/28/2016 Cbc With Differential Ord2 MCHC [...] 0.51 K/ul 04/28/2016 Cbc With Differential Ord2 Harding ABS# 0.5 K/ul 04/28/2016 Cbc With Differential Ord2 Eos ABS# 0.2 K/ul 04/28/2016 Cbc With Differential Ord2 Baso ABS# 0.0 K/ul 04/28/2016 Pt Siv2326 PT 15.6 seconds 04/28/2016 Pt Rra7355 INR 1.3 04/28/2016 Pt Hpx9777 Low Intensity - 1.5-2.0 04/28/2016 Pt Wco4610 Mod intensity - 2.0-3.0 04/28/2016 Pt Xzb8406 Hi intensity - 3.0-4.0 04/28/2016 Comp Metabolic Nya707 NA 136 mEq/L 04/28/2016 Comp Metabolic Wbz882 K 3.8 mEq/L 04/28/2016 Comp Metabolic Ljm090 CL 102 mEq/L 04/28/2016 Comp Metabolic Tjx927 CO2 29.0 mEq/L 04/28/2016 Comp Metabolic Ckx377 ANION GAP 9 04/28/2016 Comp Metabolic Ffg821 GLUCOSE 153 mg/dL 04/28/2016 Comp Metabolic Oao742 Creat 0.6 mg/dL 04/28/2016 Comp Metabolic Wlj014 eGFR 143 ml/min/1.73m2 04/28/2016 Comp Metabolic Lgm157 BUN 7 mg/dL 04/28/2016 Comp Metabolic Bak071 B/C Ratio 11.5 Ratio 04/28/2016 Comp Metabolic Xtk135 CALCIUM 8.4 mg/dL 04/28/2016 Comp Metabolic Sob411 ALK PHOS 119 U/L 04/28/2016 Comp Metabolic Kav301 AST(SGOT) 42 U/L 04/28/2016 Comp Metabolic Gxf079 ALT(SGPT) 24 U/L 04/28/2016 Comp Metabolic Zmy664 BILI T 1.9 mg/dL 04/28/2016 Comp Metabolic Anp648 ALBUMIN 3.1 g/dL 04/28/2016 Comp Metabolic Cpj338 TPRO 6.4 g/dL 04/28/2016 Comp Metabolic Nqo433 GLOB 3.4 g/dL 04/28/2016 Comp Metabolic Zcw808 A/G Ratio 0.9 Ratio 04/28/2016 Comp Metabolic Bzu334 Osmo 273 mOsmo 04/28/2016 Cbc With Differential [...] 94.2 fl 01/22/2016 Cbc With Differential Ord2 Harding% 19.3 % 01/22/2016 Cbc With Differential Ord2 MCH 32.2 pg 01/22/2016 Cbc With Differential Ord2 MCHC 34.2 pg 01/22/2016 Cbc With Differential Ord2 Eos% 3.1 % 01/22/2016 Cbc With Differential Ord2 PLT 47 K/ul 01/22/2016 Cbc With Differential Ord2 Baso% 0.4 % 01/22/2016 Cbc With Differential Ord2 RDW 16.1 % 01/22/2016 Cbc With Differential Ord2 Neut ABS# 2.84 K/ul 01/22/2016 Cbc With Differential Ord2 Lymph ABS# 0.63 K/ul 01/22/2016 Cbc With Differential Ord2 Harding ABS# 0.9 K/ul 01/22/2016 Cbc With Differential Ord2 Eos ABS# 0.1 K/ul 01/22/2016 Cbc With Differential Ord2 Baso ABS# 0.0 K/ul 01/22/2016 Comp Metabolic Uzh355 NA 134 mEq/L 01/22/2016 Comp Metabolic Osk482 K 3.8 mEq/L 01/22/2016 Comp Metabolic Ewy091 CL 102 mEq/L 01/22/2016 Comp Metabolic Bjd347 CO2 28.0 mEq/L 01/22/2016 Comp Metabolic Wnj317 ANION GAP 8 01/22/2016 Comp Metabolic Aeq978 GLUCOSE 179 mg/dL 01/22/2016 Comp Metabolic Cpw301 Creat 0.5 mg/dL 01/22/2016 Comp Metabolic Bsm313 eGFR 164 ml/min/1.73m2 01/22/2016 Comp Metabolic Jrp894 BUN 11 mg/dL 01/22/2016 Comp Metabolic Bxu504 B/C Ratio 20.4 Ratio 01/22/2016 Comp Metabolic Vew422 CALCIUM 8.2 mg/dL 01/22/2016 Comp Metabolic Pug927 ALK PHOS 171 U/L 01/22/2016 Comp Metabolic Gsm894 AST(SGOT) 25 U/L 01/22/2016 Comp Metabolic Lli473 ALT(SGPT) 13 U/L 01/22/2016 Comp Metabolic Ciq332 BILI T 2.4 mg/dL 01/22/2016 Comp Metabolic Vxd667 ALBUMIN 3.0 g/dL 01/22/2016 Comp Metabolic Mkf183 TPRO 6.3 g/dL 01/22/2016 Comp Metabolic Djb991 GLOB 3.3 g/dL 01/22/2016 Comp Metabolic Cim974 A/G Ratio 0.9 Ratio 01/22/2016 Comp Metabolic Tsc082 Osmo 272 mOsmo 01/22/2016 Afp Serum Tumor Marker [id number] ALPHA- FETOPROTEIN TM 2.2 ng/mL 12/25/2015 Pt Pqj8460 PT 16.4 seconds 12/20/2015 Pt Zky7494 INR 1.4 12/20/2015 Pt Xfv0321 Low Intensity - 1.5-2.0 12/20/2015 Pt Nyn4057 Mod intensity - 2.0-3.0 12/20/2015 Pt Xsh1630 Hi intensity - 3.0-4.0 12/20/2015 Cbc With Differential Ord2 WBC 4.82 K/ul 12/20/2015 Cbc With Differential Ord2 RBC 4.11 M/ul 12/20/2015 Cbc With Differential Ord2 HGB 13.1 g/dl 12/20/2015 Cbc With Differential Ord2 HCT 37.5 % 12/20/2015 Cbc With Differential Ord2 Neut% 75.7 % 12/20/2015 Cbc With Differential Ord2 MCV 91.2 fl 12/20/2015 Cbc With Differential Ord2 Lymph% 13.1 % 12/20/2015 Cbc With Differential Ord2 Harding% 8.1 % 12/20/2015 Cbc With Differential Ord2 MCH 31.9 pg 12/20/2015 Cbc With Differential Ord2 Eos% 2.9 % 12/20/2015 Cbc With Differential Ord2 MCHC 34.9 pg 12/20/2015 Cbc With Differential Ord2 PLT 50 K/ul 12/20/2015 Cbc With Differential Ord2 Baso% 0.2 % 12/20/2015 Cbc With Differential Ord2 Neut ABS# 3.65 K/ul 12/20/2015 Cbc With Differential Ord2 RDW 15.7 % 12/20/2015 Cbc With Differential Ord2 Lymph ABS# 0.63 K/ul 12/20/2015 Cbc With Differential Ord2 Harding ABS# 0.4 K/ul 12/20/2015 Cbc With Differential Ord2 Eos ABS# 0.1 K/ul 12/20/2015 Cbc With Differential Ord2 Baso ABS# 0.0 K/ul 12/20/2015 Cbc With Differential Ord2 New Analyzer Notice Please note new ref ranges starting 08-22-2015 due to implemntation of new five part differential hematolgy analyzer. 12/20/2015 Comp Metabolic Xir564 NA 138 mEq/L 12/20/2015 Comp Metabolic Jjc545 K 3.7 mEq/L 12/20/2015 Comp Metabolic Qam564 CL 100 mEq/L 12/20/2015 Comp Metabolic Pxf308 CO2 31.0 mEq/L 12/20/2015 Comp Metabolic Hza342 ANION GAP 11 12/20/2015 Comp Metabolic Oih840 GLUCOSE 150 mg/dL 12/20/2015 Comp Metabolic Sax259 Creat 0.4 mg/dL 12/20/2015 Comp Metabolic Yok626 eGFR 239 ml/min/1.73m2 12/20/2015 Comp Metabolic Eps325 BUN 9 mg/dL 12/20/2015 Comp Metabolic Ayw629 B/C Ratio 23.1 Ratio 12/20/2015 Comp Metabolic Mmu783 CALCIUM 7.9 mg/dL 12/20/2015 Comp Metabolic Idl066 ALK PHOS 82 U/L 12/20/2015 Comp Metabolic Qhq904 AST(SGOT) 29 U/L 12/20/2015 Comp Metabolic Jmb185 ALT(SGPT) 16 U/L 12/20/2015 Comp Metabolic Daw484 BILI T 1.8 mg/dL 12/20/2015 Comp Metabolic Myl731 ALBUMIN 2.8 g/dL 12/20/2015 Comp Metabolic Xsl755 TPRO 5.8 g/dL 12/20/2015 Comp Metabolic Iir138 GLOB 3.0 g/dL 12/20/2015 Comp Metabolic Auu154 A/G Ratio 0.9 Ratio 12/20/2015 Comp Metabolic Atr384 Osmo 277 mOsmo 12/20/2015 Vitamin D 25 Oh Rvz8646 VITAMIN D, 25 HYDROXY 110.69 ng/mL 10/24/2015 %Hba1C Ycl985 % HbA1c 03822-6 6.0 % 10/23/2015 %Hba1C Mry512 Gluc Ave 126 mg/dL 10/23/2015 Magnesium Ord90 Mag 1.7 mg/dL 10/23/2015 Tsh Ord6 hTSH II 2.74 uIU/mL 10/23/2015 Comp Metabolic Izg145 NA 133 mEq/L 10/23/2015 Comp Metabolic Hue747 K 3.6 mEq/L 10/23/2015 Comp Metabolic Fjr117 CL 101 mEq/L 10/23/2015 Comp Metabolic Nxm396 CO2 27.0 mEq/L 10/23/2015 Comp Metabolic Cny095 ANION GAP 9 10/23/2015 Comp Metabolic Lmb579 GLUCOSE 250 mg/dL 10/23/2015 Comp Metabolic Uhn262 Creat 0.5 mg/dL 10/23/2015 Comp Metabolic Qbg000 eGFR 164 ml/min/1.73m2 10/23/2015 Comp Metabolic Zlf739 BUN 8 mg/dL 10/23/2015 Comp Metabolic Vsq583 B/C Ratio 14.8 Ratio 10/23/2015 Comp Metabolic Gne865 CALCIUM 8.4 mg/dL 10/23/2015 Comp Metabolic Dly626 ALK PHOS 103 U/L 10/23/2015 Comp Metabolic Qpy916 AST(SGOT) 37 U/L 10/23/2015 Comp Metabolic Fqm833 ALT(SGPT) 21 U/L 10/23/2015 Comp Metabolic Dqp931 BILI T 1.9 mg/dL 10/23/2015 Comp Metabolic Nxt793 ALBUMIN 3.1 g/dL 10/23/2015 Comp Metabolic Evr122 TPRO 6.2 g/dL 10/23/2015 Comp Metabolic Keu109 GLOB 3.1 g/dL 10/23/2015 Comp Metabolic Mzg982 A/G Ratio 1.0 Ratio 10/23/2015 Comp Metabolic Hwr809 Osmo 273 mOsmo 10/23/2015 Cbc With Differential Ord2 WBC 3.99 K/ul 10/23/2015 Cbc With Differential Ord2 RBC 4.21 M/ul 10/23/2015 Cbc With Differential Ord2 HGB 13.5 g/dl 10/23/2015 Cbc With Differential Ord2 Neut% 73.1 % 10/23/2015 Cbc With Differential Ord2 HCT 38.2 % 10/23/2015 Cbc With Differential Ord2 Lymph% 13.3 % 10/23/2015 Cbc With Differential Ord2 MCV 90.7 fl 10/23/2015 Cbc With Differential Ord2 MCH 32.1 pg 10/23/2015 Cbc With Differential Ord2 Harding% 9.5 % 10/23/2015 Cbc With Differential Ord2 MCHC 35.3 pg 10/23/2015 Cbc With Differential Ord2 Eos% 3.8 % 10/23/2015 Cbc With Differential Ord2 PLT 55 K/ul 10/23/2015 Cbc With Differential Ord2 Baso% 0.3 % 10/23/2015 Cbc With Differential Ord2 RDW 15.2 % 10/23/2015 Cbc With Differential Ord2 Neut ABS# 2.92 K/ul 10/23/2015 Cbc With Differential Ord2 Lymph ABS# 0.53 K/ul 10/23/2015 Cbc With Differential Ord2 Harding ABS# 0.4 K/ul 10/23/2015 Cbc With Differential Ord2 Eos ABS# 0.2 K/ul 10/23/2015 Cbc With Differential Ord2 Baso ABS# 0.0 K/ul 10/23/2015 Cbc With Differential Ord2 New Analyzer Notice Please note new ref ranges starting 08-22-2015 due to implemntation of new five part differential hematolgy analyzer. 10/23/2015 Microalbumin Jle373 MicroAlb 0.2 mg/dL 10/23/2015 Lipid Ord30 CHOL 165 mg/dL 03/15/2015 Lipid [...] Differential Ord2 RDW 20.1 % 03/15/2015 %Hba1C Qxe416 % HbA1c 95025-7 5.9 % 03/15/2015 %Hba1C Rwj839 Gluc Ave 123 mg/dL 03/15/2015 Comp Metabolic Mei090 NA 133 mEq/L 03/15/2015 Comp Metabolic Knt620 K 3.9 mEq/L 03/15/2015 Comp Metabolic Hlh109 CL 102 mEq/L 03/15/2015 Comp Metabolic Lrd190 CO2 26.0 mEq/L 03/15/2015 Comp Metabolic Hzy536 ANION GAP 9 03/15/2015 Comp Metabolic Sdv966 GLUCOSE 117 mg/dL 03/15/2015 Comp Metabolic Frd026 Creat 0.6 mg/dL 03/15/2015 Comp Metabolic Nce364 eGFR 143 ml/min/1.73m2 03/15/2015 Comp Metabolic Jwg946 BUN 13 mg/dL 03/15/2015 Comp Metabolic Ffw168 B/C Ratio 21.3 Ratio 03/15/2015 Comp Metabolic Mdm037 CALCIUM 8.7 mg/dL 03/15/2015 Comp Metabolic Sri641 ALK PHOS 70 U/L 03/15/2015 Comp Metabolic Hky196 AST(SGOT) 24 U/L 03/15/2015 Comp Metabolic Flh464 ALT(SGPT) 14 U/L 03/15/2015 Comp Metabolic Hfz682 BILI T 1.2 mg/dL 03/15/2015 Comp Metabolic Coc293 ALBUMIN 3.3 g/dL 03/15/2015 Comp Metabolic Afz992 TPRO 6.6 g/dL 03/15/2015 Comp Metabolic Qzr459 GLOB 3.3 g/dL 03/15/2015 Comp Metabolic Rrn211 A/G Ratio 1.0 Ratio 03/15/2015 Comp Metabolic Uec128 Osmo 268 mOsmo 03/15/2015 Cbc With Differential Ord2 WBC 4.6 [...] Ord2 RDW 19.8 % 02/28/2015 Comp Metabolic Sdi337 NA 131 mEq/L 02/28/2015 Comp Metabolic Dzc831 K 3.8 mEq/L 02/28/2015 Comp Metabolic Kux230 CL 100 mEq/L 02/28/2015 Comp Metabolic Jwt368 CO2 24.0 mEq/L 02/28/2015 Comp Metabolic Rnr235 ANION GAP 11 02/28/2015 Comp Metabolic Fyc996 GLUCOSE 106 mg/dL 02/28/2015 Comp Metabolic Qjm495 Creat 0.6 mg/dL 02/28/2015 Comp Metabolic Uid752 eGFR 155 ml/min/1.73m2 02/28/2015 Comp Metabolic Umc297 BUN 10 mg/dL 02/28/2015 Comp Metabolic Pzl317 B/C Ratio 17.5 Ratio 02/28/2015 Comp Metabolic Ifb830 CALCIUM 8.5 mg/dL 02/28/2015 Comp Metabolic Ybc565 ALK PHOS 64 U/L 02/28/2015 Comp Metabolic Yic363 AST(SGOT) 35 U/L 02/28/2015 Comp Metabolic Vkl170 ALT(SGPT) 59 U/L 02/28/2015 Comp Metabolic Wdz303 BILI T 1.7 mg/dL 02/28/2015 Comp Metabolic Unp339 ALBUMIN 3.1 g/dL 02/28/2015 Comp Metabolic Ttp392 TPRO 5.9 g/dL 02/28/2015 Comp Metabolic Mdq252 GLOB 2.8 g/dL 02/28/2015 Comp Metabolic Xfw480 A/G Ratio 1.1 Ratio 02/28/2015 Comp Metabolic Yde280 Osmo 262 mOsmo 02/28/2015 Review of Systems System Result Effective Dates Constitutional No recent illness 2017 Constitutional No chills 07/14/2018 Constitutional No diaphoresis 07/14/2018 Constitutional No fever 07/14/2018 Eyes No eye erythema 07/14/2018 Ears/Nose/Throat/Neck No nasal discharge 07/14/2018 Cardiovascular No chest pain/pressure 12/2017 Respiratory No cough 07/14/2018 Neurologic No alteration of consciousness 07/14/2018 Neurologic No mental status change 2017 Dermatologic sores 07/14/2018 Dermatologic cellulitis 07/14/2018 Constitutional No recent illness 2017 Constitutional No [...] Result Effective Dates Notes Full Exam - Dermatology Constitutional general appearance Overall: well nourished 07/14/2018 None Full Exam - Dermatology Constitutional general appearance Overall: well developed 07/14/2018 None Full Exam - Dermatology Constitutional general appearance Overall: in no acute distress 07/14/2018 None Full Exam - Dermatology Eyes conjunctiva/ eyelids Overall: clear conjunctiva bilaterally 07/14/2018 None Full Exam - Dermatology Eyes conjunctiva/ eyelids Overall: clear corneas 07/14/2018 None Full Exam - Dermatology Eyes conjunctiva/ eyelids Overall: normal eyelids 07/14/2018 None Full Exam - Dermatology Ears/Nose/Throat lips/teeth/gingiva Overall: benign lips 07/14/2018 None Full Exam - Dermatology Ears/Nose/Throat oropharynx Overall: clear oral mucosa 07/14/2018 None Full Exam - Dermatology Respiratory respiratory effort/rhythm Overall: no retractions 07/14/2018 None Full Exam - Dermatology Respiratory respiratory effort/rhythm Overall: normal rate 07/14/2018 None Full Exam - Dermatology Musculoskeletal head and neck Overall: head atraumatic 07/14/2018 None Full Exam - Dermatology Psychiatric orientation Overall: oriented to person, place and time 07/14/2018 None Full Exam - Dermatology Psychiatric mood and affect Overall: normal mood and affect 07/14/2018 None Full Exam - Dermatology Integument insp & palp - right lower extremity Lesion: ulcer 07/14/2018 None Full Exam - Dermatology Integument insp & palp - right lower extremity Location: on the desai 07/14/2018 None Full Exam - Dermatology Integument insp & palp - right lower extremity Location: on the calf 07/14/2018 None Full Exam - Dermatology Integument insp & palp - right lower extremity Color: erythematous 07/14/2018 None Full Exam - Dermatology Integument insp & palp - right lower extremity Consistency: tender 07/14/2018 None Full Exam - Dermatology Integument insp & palp - right lower extremity Consistency: warm 07/14/2018 None Full Exam - Dermatology Integument insp & palp - left lower extremity Lesion: cellulitis 07/14/2018 None Full Exam - Dermatology Integument insp & palp - left lower extremity Lesion: erosion 07/14/2018 None Full Exam - Dermatology Integument insp & palp - left lower extremity Location: on the [place] 07/14/2018 None Full Exam - Dermatology Integument insp & palp - left lower extremity Location: on the calf 07/14/2018 None Full Exam - Dermatology Integument insp & palp - left lower extremity Color: erythematous 07/14/2018 None Full Exam - Dermatology Integument insp & palp - left lower extremity Consistency: tender 07/14/2018 None Full Exam - Dermatology Integument insp & palp - left lower extremity Consistency: warm 07/14/2018 None Full Exam - General 1994 Constitutional [...] clear 07/05/2018 None Full Exam - General 1995 Ears/Nose/Throat [...] ulceration 03/18/2018 None Full Exam - General 1994 Ears/Nose/Throat lips/teeth/gingiva Overall: benign lips 03/18/2018 None Full Exam - General 1994 Ears/Nose/Throat lips/teeth/gingiva Overall: normal dentition 03/18/2018 None Full Exam - General 1995 Ears/Nose/Throat oral cavity/pharynx/larynx Overall: oral mucosa clear 03/18/2018 None Full Exam - General 1994 Ears/Nose/Throat oral cavity/pharynx/larynx Overall: oropharyngeal mucosa clear 03/18/2018 None Full Exam - General 1995 Ears/Nose/Throat oral cavity/pharynx/larynx Overall: hypopharynx benign 03/18/2018 None Full Exam - General 1994 Ears/Nose/Throat oral cavity/pharynx/larynx Overall: no masses 03/18/2018 [...] dentition 03/04/2017 None Full Exam - General 1995 Ears/Nose/Throat oral cavity/pharynx/larynx Overall: oral mucosa clear 03/04/2017 None Full Exam - General 1995 Ears/Nose/Throat [...] NO PRSV 4 ELPIDIO 3 YRS+ CPT-4: 34895 05/28/2017 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 3-[address]: 383543152 CPT-4: G0436 05/28/2017 ADMIN INFLUENZA VIRUS VAC CPT-4: G0008 05/28/2017 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 3-[address]: 302124657 CPT-4: G0436 04/02/2017 PNEUMOCOCCAL VACC [address]: 83525760 CPT-4: 67255 04/02/2017 ADMIN PNEUMOCOCCAL VACCINE SNOMED CT: 09805895 CPT-4: G0009 04/02/2017 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 3-[address]: 622260774 CPT-4: G0436 02/05/2017 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 3-[address]: 667607641 CPT-4: G0436 07/21/2016 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 3-[address]: 401447392 CPT-4: G0436 04/22/2016 ADMIN INFLUENZA VIRUS VAC CPT-4: G0008 04/22/2016 IIV4 FLU VACC NO PRESERV ID SNOMED CT: 91671611 CPT-4: 72976 04/22/2016 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 3-[address]: 302318929 CPT-4: G0436 01/22/2016 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 3-[address]: 387238824 CPT-4: G0436 10/23/2015 ADMIN INFLUENZA VIRUS VAC CPT-4: G0008 05/15/2015 IIV4 FLU VACC NO PRESERV ID Formatting Model/CDA Sections, Assigned to/Karol Juarez SNOMED CT: 72379039 CPT-4: 71821Qsducxt 05/15/2015 Vital Signs Date Vital 07/14/2018 Blood Pressure 1: 106/50 Code : 8480-6 BMI: 30.1 Code : 59821-7 Heart Rate 1 : 62 bpm Height: 6' SpO2: 94% Weight: 222 lbs 07/05/2018 Blood Pressure 1: 124/76 Code : 8480-6 BMI: 30.1 Code : 00633-2 Heart Rate 1 : 78 bpm Height: 6' SpO2: 96% Weight: 222 lbs 03/18/2018 Blood Pressure 1: 118/72 Code : 8480-6 BMI: 29.0 Code : 65769-7 Heart Rate 1 : 68 bpm Height: 6' SpO2: 95% Weight: 214 lbs 01/26/2018 Height: Weight: 01/06/2018 Blood Pressure 1: 136/70 Code : 8480-6 BMI: 29.8 Code : 22756-5 Heart Rate 1 : 69 bpm Height: 6' SpO2: 99% Weight: 220 lbs 09/28/2017 Blood Pressure 1: 138/76 Code : 8480-6 BMI: 29.6 Code : 12870-5 Heart Rate 1 : 83 bpm Height: 6' SpO2: 99% Weight: 218 lbs 07/29/2017 Blood Pressure 1: 116/72 Code : 8480-6 BMI: 30.1 Code : 03119-9 Heart Rate 1 : 73 bpm Height: 6' SpO2: 97% Weight: 222 lbs 05/28/2017 Blood Pressure 1: 116/66 Code : 8480-6 BMI: 30.4 Code : 59067-6 Heart Rate 1 : 79 bpm Height: 6' SpO2: 97% Weight: 224 lbs 04/02/2017 Blood Pressure 1: 128/68 Code : 8480-6 BMI: 31.7 Code : 22505-8 Heart Rate 1 : 77 bpm Height: 6' SpO2: 96% Weight: 234 lbs 03/04/2017 Blood Pressure 1: 138/86 Code : 8480-6 BMI: 31.7 Code : 76273-3 Heart Rate 1 : 88 bpm Height: 6' SpO2: 94% Weight: 234 lbs 02/05/2017 Blood Pressure 1: 140/78 Code : 8480-6 BMI: 30.1 Code : 36010-8 Heart Rate 1 : 68 bpm Height: 6' SpO2: 98% Weight: 222 lbs 12/22/2016 Blood Pressure 1: 146/70 Code : 8480-6 BMI: 30.4 Code : 94825-7 Heart Rate 1 : 77 bpm Height: 6' SpO2: 94% Temperature: 37.6 (C) / 99.6 (F) Weight: 224 lbs 09/08/2016 Blood Pressure 1: 136/82 Code : 8480-6 BMI: 31.8 Code : 16150-3 Heart Rate 1 : 77 bpm Height: 6' SpO2: 93% Weight: 234 lbs 8 oz 08/19/2016 Blood Pressure 1: 122/74 Code : 8480-6 BMI: 29.4 Code : 60261-5 Heart Rate 1 : 56 bpm Height: 6' SpO2: 91% Temperature: 36.9 (C) / 98.4 (F) Weight: 217 lbs 07/21/2016 Blood Pressure 1: 120/68 Code : 8480-6 BMI: 29.4 Code : 82940-8 Heart Rate 1 : 94 bpm Height: 6' SpO2: 93% Weight: 217 lbs 04/22/2016 Blood Pressure 1: 118/68 Code : 8480-6 BMI: 29.4 Code : 14261-0 Heart Rate 1 : 57 bpm Height: 6' SpO2: 98% Temperature: 36.6 (C) / 97.8 (F) Weight: 217 lbs 01/22/2016 Blood Pressure 1: 138/74 Code : 8480-6 BMI: 30.8 Code : 46785-7 Heart Rate 1 : 70 bpm Height: 6' SpO2: 96% Weight: 227 lbs 01/04/2016 Blood Pressure 1: 116/70 Code : 8480-6 BMI: 29.6 Code : 31899-3 Heart Rate 1 : 66 bpm Height: 6' SpO2: 96% Weight: 218 lbs 11/16/2015 Blood Pressure 1: 110/64 Code : 8480-6 BMI: 31.6 Code : 24296-6 Heart Rate 1 : 73 bpm Height: 6' SpO2: 95% Weight: 233 lbs 10/23/2015 Blood Pressure 1: 138/74 Code : 8480-6 BMI: 31.3 Code : 97796-4 Heart Rate 1 : 73 bpm Height: 6' SpO2: 98% Weight: 231 lbs 2015 Blood Pressure 1: 122/74 Code : 8480-6 BMI: 32.3 Code : 66878-7 Heart Rate 1 : 67 bpm Height: 6' SpO2: 97% Weight: 238 lbs 05/15/2015 Blood Pressure 1: 110/60 Code : 8480-6 BMI: 31.1 Code : 70907-7 Heart Rate 1 : 81 bpm Height: 6' SpO2: 98% Weight: 229 lbs 03/22/2015 Blood Pressure 1: 116/62 Code : 8480-6 BMI: 31.2 Code : 08252-0 Heart Rate 1 : 74 bpm Height: 6' SpO2: 98% Weight: 230 lbs 01/23/2015 Blood Pressure 1: 124/68 Code : 8480-6 BMI: 31.1 Code : 55276-6 Heart Rate 1 : 74 bpm Height: 6' Weight: 229 lbs 12/20/2014 Blood Pressure 1: 110/74 Code : 8480-6 BMI: 30.9 Code : 90005-3 Heart Rate 1 : 72 bpm Height: 6' Weight: 228 lbs Functional Status No Functional Status data History of Present Illness Symptom Name Status Result Effective Date Notes Location-Major on the legs 07/14/2018 None Color red 07/14/2018 None Onset and Resolution sudden in onset 07/14/2018 None diabetes mellitus Onset of Symptom onset [...] Present Encounters Encounter Performer Location Codes Date () Patient admitted to the hospital from clinic (NO CHARGE) Diagnosis: Cellulitis of left lower limb[ICD10: L03.116] Diagnosis: Cellulitis of right lower limb[ICD10: L03.115] [facility] CPT-4: 95793Q 07/14/2018 ([id number]) 19017 EST. PATIENT, LEVEL IV Diagnosis: Type 2 diabetes mellitus with hyperglycemia[ICD10: E11.65] Diagnosis: Essential (primary) hypertension[ICD10: I10] Diagnosis: Chronic pain syndrome[ICD10: G89.4] Diagnosis: Insomnia due to medical condition[ICD10: G47.01] Ayesha Lyn MD [facility] CPT-4: 02288 07/05/2018 ([id number]) 57197 EST. PATIENT, LEVEL IV Diagnosis: Chronic pain syndrome[ICD10: G89.4] Diagnosis: Essential (primary) hypertension[ICD10: I10] Diagnosis: Type 2 diabetes mellitus with hyperglycemia[ICD10: E11.65] Diagnosis: Unsteadiness on feet[ICD10: R26.81] Diagnosis: Muscle weakness (generalized)[ICD10: M62.81] Ayesha Lyn MD [facility] CPT-4: 75213 03/18/2018 ([id number]) 68684 EST. PATIENT, LEVEL IV Diagnosis: Type 2 diabetes mellitus without complications[ICD10: E11.9] Diagnosis: Essential (primary) hypertension[ICD10: I10] Diagnosis: Chronic pain syndrome[ICD10: G89.4] Ayesha Lyn MD [facility] CPT-4: 25453 01/06/2018 ([id number]) 71580 EST. PATIENT, LEVEL IV Diagnosis: Essential (primary) hypertension[ICD10: I10] Diagnosis: Chronic pain syndrome[ICD10: G89.4] Diagnosis: Type 2 diabetes mellitus without complications[ICD10: E11.9] Diagnosis: Other specified diseases of liver[ICD10: K76.89] Ayesha Lyn MD [facility] CPT-4: 55081 09/28/2017 ([id number]) 52649 EST. 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 PATIENT, LEVEL IV Diagnosis: Type 2 diabetes mellitus without complications[ICD10: E11.9] Diagnosis: Essential (primary) hypertension[ICD10: I10] Diagnosis: Encounter for immunization[ICD10: Z23] Ayesha Lyn MD [facility] CPT-4: 77027 05/28/2017 ([id number]) 36433 EST. PATIENT, LEVEL IV Diagnosis: Type 2 diabetes mellitus without complications[ICD10: E11.9] Diagnosis: Essential (primary) hypertension[ICD10: I10] Diagnosis: Tobacco use[ICD10: Z72.0] Diagnosis: Epistaxis[ICD10: R04.0] Diagnosis: Encounter for immunization[ICD10: Z23] Ayesha Lyn MD [facility] CPT-4: 17127 04/02/2017 ([id number]) 99356 EST. PATIENT, LEVEL IV Diagnosis: Type 2 diabetes mellitus without complications[ICD10: E11.9] Diagnosis: Essential (primary) hypertension[ICD10: I10] Diagnosis: Chronic pain syndrome[ICD10: G89.4] Ayesha Lyn MD [facility] CPT-4: 78082 03/04/2017 ([id number]) 88417 EST. 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 PATIENT, LEVEL IV Diagnosis: Right upper quadrant pain[ICD10: R10.11] Diagnosis: VACCIN FOR INFLUENZA[ICD10: Z23] Diagnosis: Type 2 diabetes mellitus without complications[ICD10: E11.9] Diagnosis: Tobacco use[ICD10: Z72.0] Ayesha Lyn MD, [facility] CPT-4: 37039 04/22/2016 ([id number]) 32209 EST. PATIENT, LEVEL IV Diagnosis: Type 2 diabetes mellitus without complications[ICD10: E11.9] Diagnosis: Chronic pain syndrome[ICD10: G89.4] Diagnosis: Essential (primary) hypertension[ICD10: I10] Diagnosis: Insomnia due to medical condition[ICD10: G47.01] Diagnosis: Tobacco use[ICD10: Z72.0] Ayesha Lyn MD, [facility] CPT-4: 81007 01/22/2016 30356 EST. PATIENT, LEVEL III Diagnosis: Dysuria[ICD10: R30.0] Eunice Lyn MD, [facility] CPT-4: 12708 01/04/2016 16255 EST. PATIENT, LEVEL IV Diagnosis: Encounter for follow-up examination after completed treatment for conditions other than malignant neoplasm[ICD10: Z09] Diagnosis: Chronic pain syndrome[ICD10: G89.4] Diagnosis: Essential (primary) hypertension[ICD10: I10] Eunice Lyn MD, [facility] CPT-4: 99034 11/16/2015 ([id number]) 23230 EST. 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 PATIENT, LEVEL IV Diagnosis: Type 2 diabetes mellitus without complications[ICD10: E11.9] Diagnosis: Chronic pain syndrome[ICD10: G89.4] Diagnosis: Chronic obstructive pulmonary disease, unspecified[ICD10: J44.9] Ayesha Lyn MD, [facility] CPT-4: 79169 2015 ([id number]) 88115 EST. PATIENT, LEVEL IV Diagnosis: Encounter for immunization[ICD10: Z23] Diagnosis: Type 2 diabetes mellitus without complications[ICD10: E11.9] Diagnosis: Chronic pain syndrome[ICD10: G89.4] Diagnosis: Insomnia, unspecified[ICD10: G47.00] Ayesha Lyn MD, [facility] CPT-4: 23611 05/15/2015 ([id number]) 31177 EST. PATIENT, LEVEL IV Diagnosis: DIABETES TYPE II[ICD9: 250.00] Diagnosis: ESSENTIAL HYPERTENSION[ICD9: 401.9] Ayesha Lyn MD, [facility] CPT-4: 05318 03/22/2015 ([id number]) 22265 EST. PATIENT, LEVEL IV Diagnosis: Umbilical hernia[ICD9: 553.1] Diagnosis: 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[ICD9: V02.62] Diagnosis: CHRONIC PAIN SYNDROME[ICD9: 338.4] Diagnosis: Tumor of liver[ICD9: 239.0] Diagnosis: Urinary tract infection[ICD9: 599.0] Diagnosis: DIABETES TYPE II[ICD9: 250.00] Ayesha Lyn MD, [facility] CPT- 4: 11266 01/23/2015 ([id number]) OFFICE/OUTPATIENT VISIT NEW Diagnosis: DIABETES TYPE II[ICD9: 250.00] Diagnosis: ESOPHAGEAL REFLUX[ICD9: 530.81] Diagnosis: BACKACHE[ICD9: 724.5] Diagnosis: CHRONIC PAIN SYNDROME[ICD9: 338.4] Diagnosis: 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[ICD9: V02.62] Ayesha Lyn MD, [facility] CPT-4: 57899 12/20/2014 Plan of Care Planned Activity Notes Codes Status Date Visit Plan: Hospital follow up - This was a follow up appointment from the patient's hospitalization during which time Dr. Lyn formulated the assessment and plan for the follow up on this patient's medical condition. 07/14/2018 Appointment: [phone] [facility] [place] (30 min) Complex 07/14/2018 Patient Education: Patient Medication Summary Completed 07/14/2018 Visit Plan: COPD - rx to [facility] for mask instead of [place] [...] and understands the consequences of over-medication. 07/05/2018 Appointment: [facility] [address] [facility] [place] (15 min) Moderate 07/05/2018 Patient Education: Patient Medication Summary Completed 07/05/2018 Patient Education: Diabetes Completed 07/05/2018 Appointment: [facility] [address] [facility] (15 min) Moderate 04/05/2018 Visit Plan: Musculo-skeletal [...] will look into a powered scooter through [employer]. [place] could reliably run a powered scooter. I have recommended that if Medicare denies the purchase of a powered scooter through [employer] that they need to look at purchase [...] will look into a powered scooter through [employer]. [employer] could reliably run a powered scooter. I have recommended that if Medicare denies the purchase of a powered scooter through [employer] that they need to look at purchase [...] at home. 03/18/2018 Appointment: Ayesha Lyn WPtel: [address] [place], [place] [address] (15 min) Moderate 03/18/2018 Patient Education: Patient [...] medication today. 01/06/2018 Appointment: Ayesha Lyn WPtel: [phone] [facility] (15 min) Moderate 01/06/2018 Patient Education: Patient [...] refilled Morphine 09/28/2017 Appointment: [facility] [address] [facility] (15 min) Moderate 09/28/2017 Patient Education: Patient [...] his last labs in May. 07/29/2017 Appointment: Zainab [facility] [address] [facility] [place] (15 min) Moderate 07/29/2017 Patient Education: [...] abdomen. 05/28/2017 Appointment: [facility] [address] [facility] [place] (15 min) Moderate 05/28/2017 Patient [...] stop smoking. 04/02/2017 Appointment: Ayesha Lyn WPtel: [address] [place], [place] [phone] (15 min) Moderate 04/02/2017 Patient Education: Patient [...] over-medication. 03/04/2017 Appointment: [facility] [address] [facility] (15 min) Moderate 03/04/2017 Patient Education: [...] I will send a note to the [facility] about the need to remove his driving privileges. 02/05/2017 Patient Education: Patient Medication Summary Completed 02/05/2017 Patient Education: Smoking and Tobacco Addiction Completed 02/05/2017 Patient Education: Obesity Completed 02/05/2017 Patient Education: Hypertension Completed 02/05/2017 Appointment: [facility] [address] [facility] [place] (15 min) Moderate 02/03/2017 Appointment: [facility]un[facility] Betancourt [phone] [place] [place] (30 min) Complex 01/06/2017 Appointment: Eunice Betancourt [facility]Ptel[phone] [facility] [place] [place] (15 min) Moderate 01/01/2017 Visit Plan: Cough, shortness of breath - Pt was sent for outpatient chest x-ray and EKG - at the hospital he started feeling worse and went to the ER. 12/22/2016 Appointment: [facility] Lyn [facility] [address] [facility] [place] (15 min) Moderate 12/22/2016 Appointment: Eunice Betancourt [facility]Ptel: [phone] [facility] [place] [place] (15 min) Moderate 12/22/2016 Patient Education: Patient Medication Summary Completed 12/22/2016 Patient Education: Smoking and Tobacco Addiction Completed 12/22/2016 Patient Education: Obesity Completed 12/22/2016 Appointment: Lab Draw 12/18/2016 Patient Education: Patient Medication Summary Completed 12/04/2016 Visit Plan: Liver failure, status post - TIPS blockage - called to Dr. Peres - he will do repeat liver ultrasound, paracentesis. Nib Adjuster needs to be aware of the worsening symptoms this pt has been experiencing over the past 10 days. The radiologist reports that he called the environmental epidemiologist at but never got to speak to [...] lactulose. 09/08/2016 Appointment: [facility] [address] [facility] [place] (15 min) Moderate 09/08/2016 Patient [...] medication compliance. 08/19/2016 Appointment: [facility] [phone] [place] [facility] [place] (15 min) Moderate 08/19/2016 Patient Education: [...] confusion. 07/21/2016 Appointment: Ayesha Lyn WPtel: [phone] [facility] (15 min) Moderate 07/21/2016 Patient Education: Patient [...] physician. 04/22/2016 Appointment: Ayesha Lyn WPtel: [phone] [facility] (15 min) Moderate 04/22/2016 Patient Education: Patient [...] not improve. 01/04/2016 Appointment: Lexus Black WPtel: [facility] [place] [place] (30 min) Complex 01/04/2016 Patient Education: Patient Medication Summary Completed 01/04/2016 Patient Education: Patient Medication Summary Completed 01/04/2016 Patient Education: Smoking and Tobacco Addiction Completed 01/04/2016 Visit Plan: Hospital follow up [...] Hypertension Completed 10/23/2015 Appointment: Lexus Black [facility]Ptel: [address] [facility] [place] [place] (15 min) Moderate 09/18/2015 Visit Plan: [...] 2 weeks. 2015 Appointment: Ayesha Lyn [facility] [address] [place] [facility] [place] (15 min) Moderate 2015 Patient Education: [...] in trazodone. 05/15/2015 Appointment: Ayesha Lyn WPtel: [facility] (15 min) Moderate 05/15/2015 Patient Education: Patient Medication Summary Completed 05/15/2015 Appointment: Ayesha Lyn WPtel: [address] [place], [place] [phone] (15 min) Moderate 05/09/2015 Visit Plan: Diabetes [...] C pt seeing specialist in [place] at [facility]. Umbilical hernia - surgery being planned. 03/22/2015 Appointment: Ayesha Lyn WPtel: [address] [place], [place] [phone] Follow up 03/22/2015 Patient Education: Patient Medication Summary Completed 03/22/2015 Patient Education: Hypertension Completed 03/22/2015 Visit Plan: UTI-hospital follow up-symptoms resolved- monitor Lesion of bgoef-wuqoaivypo-hosgqodyry, Dr Basilio, at suspects cancer- will follow [...] improve. Hepatitis C pt sees hepatology at [facility] . 12/20/2014 Appointment: Ayesha Lyn WPtel: [facility] [place] [place] ([place] New Patient 12/20/2014 Patient Education: Patient Medication Summary Completed 12/20/2014 Patient Education: Hypertension Completed 12/20/2014 Instructions Comment use the saline gel in your nose [...] I will send a note to the [facility] about the need to remove his driving [...] to maintain independence in the home. . Hospital follow up - This was a follow up appointment from the patient's hospitalization during which time Dr. Lyn formulated the assessment and plan for the follow up on this patient's medical condition. restart lactulose as previously prescribed . Liver failure, status post - TIPS blockage - called to Dr. Peres - he will do repeat liver ultrasound, paracentesis. Nib Adjuster needs to be aware of the worsening symptoms this pt has been experiencing over the past 10 days. The radiologist reports that he called the environmental epidemiologist at but never got to speak to [...] the pt routinely taking his lactulose. . UTI-hospital follow up-symptoms resolved-monitor Lesion of yqmvy-odidtkjecp-pwbpdislwt, Dr Basilio, at suspects cancer-will follow up with Umbilical hernia-appt with Dr Murdock February 08 Chronic back pain-refill morphine-instructed patient and sisters to use as needed for pain and call if pain is uncontrolled . Hypertension - well controlled - continue [...] but cannot force the medication compliance. . Musculo-skeletal weakness - due to liver [...] will look into a powered scooter through [employer]. [employer] could reliably run a powered scooter. I have recommended that if Medicare denies the purchase of a powered scooter through [employer] that they need to look at purchase [...] of over-medication. refilled pain medication today. . Musculo-skeletal weakness - due to liver [...] will look into a powered scooter through [employer]. [employer] could reliably run a powered scooter. I have recommended that if Medicare denies the purchase of a powered scooter through [employer] that they need to look at purchase [...] to call if symptoms do not improve. use the saline gel in your nose [...] to restart daily use of medication. . Welcome to Medicare Exam - today [...] to maintain independence in the home. . Diabetes Mellitus - controlled - [...] C pt seeing specialist in [place] at [facility]. Umbilical hernia - surgery being planned. . [...] improve. Hepatitis C pt sees hepatology at [facility] . . Diabetes Mellitus - controlled [...] chagne in treatment - defer to physician. [facility] through [employer] . Hypertension - well controlled - continue [...] given to patient. RTC in 2 weeks. get Mucinex DM and take this twice [...] will consider an increase in trazodone. . COPD - rx to [facility] pt for mask instead of [place] [...] directed, and understands the consequences of over-medication. get Mucinex DM and take this twice [...] Chronic pain syndrome - refilled Morphine . Hospital follow up - This was [...]
[2018-07-21] MEDS: RT-ALBUTEROL SULF 2.5 MG/3 ML PRE-MIX VIAL INH SCH ×2 (14:44→19:26)
[2018-07-21] MEDS: FUROSEMIDE 40 MG/4 ML INJ (LASIX) IVP SCH (15:31)
[2018-07-21] MEDS: morphine IMMEDIATE RELEASE 15 MG TABLET PO PRN (15:37)
[2018-07-21] MEDS ORDERED: RIFAXIMIN 550 MG TABLET (XIFAXAN) PO SCH (16:08)
[2018-07-21] MEDS: LACTOBACILLUS ACIDOPHILUS (PROBIOTIC) CAPSULE PO SCH (17:11)
[2018-07-21] MEDS: inSUlin DETERMIR 1 UNIT/0.01 ML (LEVEMIR) CHARGE PER UNIT SQ SCH (17:12)
--- NOTE | 2018-07-21 17:40 | Oncology Progress Note ---
Subjective Date Seen by a Provider: Jul 21, 2018 Time Seen by a Provider: 17:37 Subjective/Events-last exam Pt is feeling better. Wound stable and slightly improving in some areas Data Review Labs Laboratory Tests 07/23/18 05:30 Laboratory Tests 07/22/18 11:16: Glucometer 311H 07/22/18 15:48: Glucometer 250H 07/22/18 20:25: Glucometer 192H 07/23/18 05:30: White Blood Count 2.8L, Red Blood Count 3.05L, Hemoglobin 8.1L, Hematocrit 26L, Red Cell Distribution Width 17.3H, Platelet Count 24*L, Blood Urea Nitrogen 30H , Glucose Level 154H, Calcium Level 7.7L, Total Bilirubin 2.0H, Aspartate Amino Transf (AST/SGOT) 37H, Total Protein 5.0L, Albumin 2.2L Physical Exam Vital Signs Vital Signs - First Documented 07/21/18 07/21/18 14:45 18:00 Temp 97.6 Pulse 79 Resp 18 B/P (MAP) 171/82 (111) Pulse Ox 90 O2 Delivery Room Air O2 Flow Rate 2.00 Capillary Refill : Height, Weight, BMI Height: 6'0.00" Weight: 225lbs. 0.0oz. 102.758134kb; 30.5 BMI Method:Estimated General Appearance: No Apparent Distress HEENT: PERRL/EOMI Neck: Non Tender, Supple Extremity: Swelling, Other (skin less red) Neurologic/Psychiatric: Alert, Oriented x3 Impression & Plan Impression & Plan IMP: 1. Bilateral lower extremity cellulitis and blister wound, skin rash, wound culture negative, not responding to IV antibiotics as expected. Possible autoimmune related the reactions from Opdivo last dose 480mg given 07/08/18. Day 2 on large dose of steroid. Skin is better. No new lesions. 2. 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 AFP normal. Disease progressed on Sorafenib(Nexavar) and treatment changed to Opdivo at the end of 03/2018. 3. Hep C, genotype 1A, complted 24 weeks of Harvoni treatment 2014 with sustained viral response. No more intervention needed. 4. TIPS placement 2010, last evaluation a month ago 04/2018 and was told everything working and stable. 5. h/o hepatoencephalopathy 6. Liver failure, ascites. 7. DM 8. Gastroparesis 9. h/o Alcohol abuse. 10. Pancytopenia due to end stage of liver disease/failure. Plan: 1. Treat as autoimmune related dermatitis for now. Continue Solumedral 125mg q 6hrs for today. Then possible change to PO Prednisone 40mg daily tomorrow with Protonix or Pepcid to protect GI track. Hold off Opdivo treatment. 2. wound care 3. Monitoring blood sugar and BP while steroid. Treat accordingly Clinical Quality Measures DVT/VTE Risk/Contraindication: Risk Factor Score Per Nursin Contraindications-Pharm: Other *list below* Contraindications-Mechi: Other *list below* Other: gross wounds on lower legs, cannot place compression or scds, waiting on labs before ordering anticoag MICHI GARAY MD Jul 21, 2018 17:39
[2018-07-21 18:00] VITALS: BP 171/82
[2018-07-21] MEDS: traZODone 50 MG (DESYREL) TAB PO SCH (21:14)
[2018-07-21] MEDS: MIRTAZAPINE 15 MG (REMERON) TAB PO SCH (21:14)
[2018-07-21] MEDS: RIFAXIMIN 550 MG TABLET (XIFAXAN) PO SCH (21:14)
[2018-07-22 06:00] VITALS: BP 123/66
[2018-07-22] MEDS: methylPREDNISolone 125 MG (Solu-MEDROL) VIAL IVP SCH ×3 (06:32→17:37)
[2018-07-22] MEDS: inSUlin ASPART (NovoLOG) 1 UNIT/0.01 ML (CHARGE PER UNIT) SC SCH ×4 (06:32→20:58)
[2018-07-22] MEDS: PANTOPRAZOLE 20 MG TABLET (PROTONIX) PO SCH (06:32)
[2018-07-22] MEDS: LACTOBACILLUS ACIDOPHILUS (PROBIOTIC) CAPSULE PO SCH ×3 (06:32→17:38)
[2018-07-22] MEDS: RT-ALBUTEROL SULF 2.5 MG/3 ML PRE-MIX VIAL INH SCH ×3 (07:12→21:53)
[2018-07-22] MEDS: RIFAXIMIN 550 MG TABLET (XIFAXAN) PO SCH ×2 (08:43→20:58)
[2018-07-22] MEDS: NICOTINE 7 MG (NICODERM) PATCH TD SCH (08:43)
[2018-07-22] MEDS: FUROSEMIDE 40 MG/4 ML INJ (LASIX) IVP SCH ×2 (08:44→13:41)
--- NOTE | 2018-07-22 09:14 | Progress Note ---
Subjective Date Seen by a Provider: Jul 22, 2018 Time Seen by a Provider: 08:50 Subjective/Events-last exam PT REPORTS THAT HE IS FEELING "OKAY". STAFF NOTES THAT HE APPEARS TO BE BREATHING EASIER. HE STATES THAT HIS LAST BOWEL MOVEMENT WAS YESTERDAY. HE CONTINUES TO HAVE BACK PAIN AND ABDOMINAL PAIN. Review of Systems General: No Chills; Fatigue HEENT: No Head Aches, No Sore Throat Pulmonary: Dyspnea; No Cough Cardiovascular: Edema; No: Chest Pain Gastrointestinal: No: Nausea, Abdominal Pain Genitourinary: Frequency Musculoskeletal: back pain Neurological: Weakness; No: Confusion Objective Exam Last Set of Vital Signs Vital Signs Date Time Temp Pulse Resp B/P (MAP) Pulse Ox O2 Delivery O2 Flow Rate FiO2 07/22/18 07:12 98 Nasal Cannula 2.00 07/22/18 06:00 96.7 80 18 123/66 (85) Capillary Refill : I&O Intake and Output 07/22/18 00:00 Intake Total 1242 ml Balance 1242 ml Intake Oral 1242 ml # Voids 5 # Bowel Movements 1 Daily Weight Change No General: Alert, Oriented X3, Cooperative, No Acute Distress HEENT: Atraumatic, PERRLA Neck: Supple Lungs: Clear to Auscultation, Other (DECREASED AIR MOVEMENT AT BSE) Heart: Regular Rate Abdomen: Normal Bowel Sounds, Soft, Other Skin: Other (SERPIGINOUS BORDERS TO ULCERATED WOUNDS ON LOWER LEGS WITH MACERATED TISSUE TO LEGS) Psych/Mental Status: Mental Status NL, Mood NL Assessment/Plan Assessment/Plan Assess & Plan/Chief Complaint ADVERSE REACTION TO CHEMOTHERAPY/IMMUNOTHERAPY AGENT - PT FINISHED COURSE OF IV ANTIBIOTICS, CULTURES WERE NEGATIVE, IV STEROIDS HAVE BEEN INITIATED. DR. GARAY IS IN AGREEMENT THAT THE PT HAS HAD REACTION TO OPDIVO - THIS MEDICATION WAS THE LAST IN THE LINE OF DIFFERENT TREATMENTS CORDELIA HAS HAD FOR TX OF HIS HEPATOCELLULAR CARCINOMA WITH LACK OF TUMOR RESPONSE. HE IS AWARE ARE HIS SISTERS THAT THERE IS NO OTHER TREATMENT AVAILABLE AND HE CANNOT RESTART THE OPDIVO DUE TO HIS REACTION. HE WILL NEED TO BE ON THE IV STEROID FOR SEVERAL MORE DAYS - WITH TRANSITION TO ORAL STEROIDS ON THURSDAY WITH PLANS FOR PLACEMENT AT A [facility] EARLY NEXT WEEK. I WILL WAIT TO TRANSITION TO ORAL MEDICATION WE MONITOR HIS LEG/SKIN CHANGES ON THE TOPICAL TREATMENTS WELL IV STEROIDS TO DECREASE HIS AUTOIMMUNE RESPONSE TO THE OPDIVO. PT HAS DRESSINGS ON LOWER LEGS - ADAPTIC, AQUACELL, ABD, KERLEX AND TUBE GAUZE HEPATOCELLULAR CARCINOMA METASTATIC TO LUNGS - SUPPORTIVE CARE ONLY AT THIS TIME. HX OF HEPATITIS C S/P CLEARANCE OF INFECTION CIRRHOSIS - CHRONIC - SUPPORTIVE CARE AT THIS TIME HYPERTENSION - RESUME HOME MEDICATIONS DIABETES MELLITUS - RESTART HOME MEDICATIONS, FSBS ACHS AND SLIDING SCALE B CHRONIC PAIN SYNDROME - RESUMED HOME REGIMEN CHRONIC ANXIETY AND DEPRESSION - RESUME HOME REGIMEN ESOPHAGEAL REFLUX - RESTART PANTOPRAZOLE COPD - RESTART BREATHING TREATMENTS TOBACCOISM - NICODERM CQ EDEMA - CONTINUE WITH LASIX 60MG IV BID THIS HAS IMPROVED HIS SWELLING A LITTLE - CHECK LABS IN MORNING PLANNING ON PLACEMENT OF PATIENT AT [facility] ON DISCHARGE Clinical Quality Measures DVT/VTE Risk/Contraindication: Risk Factor Score Per Nursin Contraindications-Pharm: Other *list below* Contraindications-Mechi: Other *list below* Other: gross wounds on lower legs, cannot place compression or scds, waiting on labs before ordering anticoag BRITTANY RIOS MD Jul 22, 2018 09:14
[2018-07-22] MEDS: morphine ER 15 MG (MS CONTIN) TAB PO PRN (09:38)
--- NOTE | 2018-07-22 11:06 | Physical Therapy Daily Note ---
PT Daily Note-Current Subjective Patient agrees to PT. He is on vapotherm. Pain Numeric Pain Scale: 5-Moderate Pain Location: Right, Left Location Body Site: Knee Pain Description: Chronic Mental Status Patient Orientation: Normal For Age Attachments: IV vapotherm Transfers Therapy Code Descriptions/Definitions Functional [place] Measure: 0=Not Assessed/NA 4=Minimal Assistance 1=Total Assistance 5=Supervision or Setup 2=Maximal Assistance 6=Modified [place] 3=Moderate Assistance 7=Complete [place] Therapy Quality Codes: 6 Independent with activity with or without an assistive device 5 Patient requires set up or clean up by helper. Patient completes activity by themselves 4 Supervision or touching assist (CGA). [place] provide cues , steadying assist 3 The helper provides less than half the effort to complete the activity 2 The helper provides more than half the effort to complete the activity 1 Dependent. The helper does all the effort to complete an activity 7 Patient refused to complete or attempt activity 9 The patient did not perform the activity before the current illness or injury 88 Not attempted due to Medical conditions or safety concerns Transfers (B, C, W/C) (FIM): 6 Scootin Sit to/from Stand: 6 Exercises Standing: Marching, Mini squats Standing Reps: 20 (4 sets) Assessment Patient unable to ambulate due to on vapotherm. Dr. mckeon for assessment. Patient instructed to perform sit to stand and standing exercises PRN. PT Group Home Goals Group Home Goals PT Group Home Goals Time Frame: Jul 28, 2018 Transfers (B,C,W/C) (FIM): 6 Gait (FIM): 2 Distance: 50' Gait Level of Assist: 5 Gait Assistive Device: None, FWW PT Plan Treatment/Plan Treatment Plan: Continue Plan of Care Treatment Plan: Bed Mobility, Education, Functional Activity Court, Functional Strength, Gait, Safety, Therapeutic Exercise, Transfers Treatment Duration: Jul 28, 2018 Frequency: 6 times per week Estimated Hrs Per Day: .25 hour per day (15-30') Patient and/or Family Agrees t: Yes Time/GCodes Time In: 1030 Time Out: 1040 Total Billed Treatment Time: 10 Total Billed Treatment 1 visit EX 10 min UNIQUE CHRISTENSEN PT Jul 22, 2018 11:05
--- NOTE | 2018-07-22 11:18 | Physical Therapy Progress Note ---
Therapy Progress Note Patient just complete with shower and dressing change bilateral LE and declined PT. PT to attempt in p.m. 1 ref UNIQUE CHRISTENSEN PT Jul 22, 2018 11:18
[2018-07-22] MEDS: VENlafaxine XR 75 MG (EFFEXOR XR) CAP PO SCH (11:35)
[2018-07-22] MEDS: KCL 20 MEQ TAB (K-DUR) PO SCH (11:36)
--- NOTE | 2018-07-22 15:33 | Physical Therapy Daily Note ---
PT Daily Note-Current Subjective Patient agrees to PT. Mental Status Patient Orientation: Person, Time, Situation Transfers Therapy Code Descriptions/Definitions Functional [place] Measure: 0=Not Assessed/NA 4=Minimal Assistance 1=Total Assistance 5=Supervision or Setup 2=Maximal Assistance 6=Modified [place] 3=Moderate Assistance 7=Complete [place] Therapy Quality Codes: 6 Independent with activity with or without an assistive device 5 Patient requires set up or clean up by helper. Patient completes activity by themselves 4 Supervision or touching assist (CGA). [place] provide cues , steadying assist 3 The helper provides less than half the effort to complete the activity 2 The helper provides more than half the effort to complete the activity 1 Dependent. The helper does all the effort to complete an activity 7 Patient refused to complete or attempt activity 9 The patient did not perform the activity before the current illness or injury 88 Not attempted due to Medical conditions or safety concerns Transfers (B, C, W/C) (FIM): 7 Scootin Rollin Supine to/from Sit: 7 Sit to/from Stand: 7 Gait Training Gait (FIM): 7 Distance (FIM): 3=150 ft Distance: >500' Gait Level of Assist: 7 Gait Assistive Device: None slightly unsteady with self correction Assessment Patient tolerated treatment well and had increase SOA with activity on 4L O2 NC. PT Mobile Ui/Ux Designer Goals Half-Way Goals PT Half-Way Goals Time Frame: Jul 28, 2018 Transfers (B,C,W/C) (FIM): 6 Gait (FIM): 2 Distance: 50' Gait Level of Assist: 5 Gait Assistive Device: None, FWW PT Plan Treatment/Plan Treatment Plan: Continue Plan of Care Treatment Plan: Bed Mobility, Education, Functional Activity Court, Functional Strength, Gait, Safety, Therapeutic Exercise, Transfers Treatment Duration: Jul 28, 2018 Frequency: 6 times per week Estimated Hrs Per Day: .25 hour per day (15-30') Patient and/or Family Agrees t: Yes Time/GCodes Time In: 1506 Time Out: 1517 Total Billed Treatment Time: 11 Total Billed Treatment 1 visit FA 11 min UNIQUE CHRISTENSEN PT Jul 22, 2018 15:33
[2018-07-22] MEDS: inSUlin DETERMIR 1 UNIT/0.01 ML (LEVEMIR) CHARGE PER UNIT SQ SCH (17:37)
[2018-07-22 18:00] VITALS: BP 158/82
[2018-07-22] MEDS: traZODone 50 MG (DESYREL) TAB PO SCH (20:57)
[2018-07-22] MEDS: MIRTAZAPINE 15 MG (REMERON) TAB PO SCH (20:58)
[2018-07-23] MEDS: methylPREDNISolone 125 MG (Solu-MEDROL) VIAL IVP SCH ×5 (00:35→23:24)
[2018-07-23 05:41] LABS: HEMATOCRIT 26 % (40-54); HEMOGLOBIN 8.1 G/DL (13.3-17.7); MEAN CORPUSCULAR HEMOGLOBIN 27 PG (25-34); MEAN CORPUSCULAR HGB CONC 32 G/DL (32-36); MEAN CORPUSCULAR VOLUME 84 FL (80-99); RED BLOOD COUNT 3.05 10^6/uL (4.35-5.85); RED CELL DISTRIBUTION WIDTH 17.3 % (10.0-14.5); WHITE BLOOD COUNT 2.8 10^3/uL (4.3-11.0)
[2018-07-23 05:45] LABS: PLATELET COUNT 24 10^3/uL (130-400)
[2018-07-23 06:03] LABS: BUN/CREATININE RATIO 44; CARBON DIOXIDE 32 MMOL/L (21-32); CHLORIDE 102 MMOL/L (98-107); CREATININE SERUM 0.68 MG/DL (0.60-1.30); POTASSIUM 4.4 MMOL/L (3.6-5.0); SODIUM 139 MMOL/L (135-145)
[2018-07-23 06:04] LABS: ALANINE AMINOTRANSFERASE 32 U/L (0-55); ALBUMIN 2.2 GM/DL (3.2-4.5); ALKALINE PHOSPHATASE 105 U/L (40-136); CALCIUM 7.7 MG/DL (8.5-10.1); GFR ESTIMATED > 60; GLUCOSE 154 MG/DL (70-105); MAGNESIUM 1.9 MG/DL (1.8-2.4)
[2018-07-23] MEDS: inSUlin ASPART (NovoLOG) 1 UNIT/0.01 ML (CHARGE PER UNIT) SC SCH ×4 (06:08→20:16)
[2018-07-23 06:10] VITALS: BP 133/74
[2018-07-23] MEDS: RT-ALBUTEROL SULF 2.5 MG/3 ML PRE-MIX VIAL INH SCH ×3 (06:28→19:03)
[2018-07-23] MEDS: PANTOPRAZOLE 20 MG TABLET (PROTONIX) PO SCH (06:42)
[2018-07-23] MEDS: LACTOBACILLUS ACIDOPHILUS (PROBIOTIC) CAPSULE PO SCH ×3 (06:42→17:52)
[2018-07-23 08:00] VITALS: BP 113/58
[2018-07-23] MEDS: RIFAXIMIN 550 MG TABLET (XIFAXAN) PO SCH ×2 (08:34→20:16)
[2018-07-23] MEDS: FUROSEMIDE 40 MG/4 ML INJ (LASIX) IVP SCH ×2 (08:35→14:07)
[2018-07-23] MEDS: NICOTINE 7 MG (NICODERM) PATCH TD SCH (08:35)
[2018-07-23] MEDS: morphine ER 15 MG (MS CONTIN) TAB PO PRN ×2 (08:40→20:16)
--- NOTE | 2018-07-23 09:32 | Physical Therapy Daily Note ---
PT Daily Note-Current Subjective Patient agrees to PT. Pain Numeric Pain Scale: 0-No Pain Location: No Pain Reported Mental Status Patient Orientation: Confused Attachments: Oxygen Transfers Therapy Code Descriptions/Definitions Functional [place] Measure: 0=Not Assessed/NA 4=Minimal Assistance 1=Total Assistance 5=Supervision or Setup 2=Maximal Assistance 6=Modified [place] 3=Moderate Assistance 7=Complete [place] Therapy Quality Codes: 6 Independent with activity with or without an assistive device 5 Patient requires set up or clean up by helper. Patient completes activity by themselves 4 Supervision or touching assist (CGA). [place] provide cues , steadying assist 3 The helper provides less than half the effort to complete the activity 2 The helper provides more than half the effort to complete the activity 1 Dependent. The helper does all the effort to complete an activity 7 Patient refused to complete or attempt activity 9 The patient did not perform the activity before the current illness or injury 88 Not attempted due to Medical conditions or safety concerns Transfers (B, C, W/C) (FIM): 7 Scootin Rollin Roll Left to Right (QC): 6 Supine to/from Sit: 7 Sit to/from Stand: 7 Sit to Lying (QC): 6 Sit to Stand (QC): 6 Chair/[id number] Xfer(QC): 6 Bed to/from Chair: 7 Gait Training Does the Patient Walk?: Yes Gait (FIM): 7 Distance (FIM): 3=150 ft Distance: 150' Walk 10 feet (QC): 6 Walk 50 ft with 2 Turns(QC): 6 Walk 150 ft (QC): 6 Gait Level of Assist: 7 Gait Assistive Device: None steady/difficulty with negotiating O2 tubing in room Assessment Patient requires time to complete all functional tasks. Education with patient on negotiating O2 tubing in room for safety concerns with reinforcement needed. Patient returned to bed with 4 rails up and bed alarm activated. PT Shelter Goals Shelter Goals PT Precision Assembly Inspector Goals Time Frame: Jul 28, 2018 Transfers (B,C,W/C) (FIM): 6 Sit to Lying (QC): 6 Lying-Sitting on Side/Bed(QC): 6 Sit to Stand (QC): 6 Rollin Roll Left to Right (QC): 6 Chair/[id number]-Apghp Xfer(QC): 6 Gait (FIM): 2 Distance: 50' Walk 10 feet (QC): 4 Walk 10ft-Uneven Surface(QC): 4 Walk 50ft with 2 Turns (QC): 4 Gait Level of Assist: 5 Gait Assistive Device: None, FWW PT Plan Treatment/Plan Treatment Plan: Continue Plan of Care Treatment Plan: Bed Mobility, Education, Functional Activity Court, Functional Strength, Gait, Safety, Therapeutic Exercise, Transfers Treatment Duration: Jul 28, 2018 Frequency: 6 times per week Estimated Hrs Per Day: .25 hour per day (15-30') Patient and/or Family Agrees t: Yes Safety Risks/Education Patient Education: Safety Issues Teaching Recipient: Patient Teaching Methods: Demonstration, Discussion Response to Teaching: Reinforcement Needed Time/GCodes Time In: 845 Time Out: 900 Total Billed Treatment Time: 15 Total Billed Treatment 1 visit FA 15 min UNIQUE CHRISTENSEN PT Jul 23, 2018 09:32
--- NOTE | 2018-07-23 09:36 | Progress Note ---
Subjective Date Seen by a Provider: Jul 23, 2018 Time Seen by a Provider: 09:30 Subjective/Events-last exam PT REPORTS THAT HE IS STILL ITCHING PRETTY HEAVILY. HE STATES THAT HIS PAIN IS CONTROLLED. HIS SISTERS ARE CONCERNED ABOUT HIS DECREASED APPETITE. THE STAFF REPORTS THAT HE HAS BEEN COMPLAINING OF PAIN. Review of Systems General: No Chills; Fatigue, Appetite (DECREASED) HEENT: No Head Aches Pulmonary: No Dyspnea, No Cough Cardiovascular: No: Chest Pain, Palpitations Gastrointestinal: No: Nausea Neurological: Weakness, Confusion (INTERMITTENT) Objective Exam Last Set of Vital Signs Vital Signs Date Time Temp Pulse Resp B/P (MAP) Pulse Ox O2 Delivery O2 Flow Rate FiO2 07/23/18 08:00 96.6 71 20 113/58 (76) 98 Nasal Cannula 2.00 Capillary Refill : I&O Intake and Output 07/23/18 00:00 Intake Total 1400 ml Balance 1400 ml Intake Oral 1400 ml # Voids 11 # Bowel Movements 2 General: Alert, Oriented X3, Cooperative, No Acute Distress HEENT: Atraumatic, PERRLA Neck: Supple Lungs: Clear to Auscultation, Other (DECREASED AIR MOVEMENT AT BSE) Heart: Regular Rate Abdomen: Normal Bowel Sounds, Soft, Other Extremities: Other (EDEMA OF LEGS TO THIGHS, NEW EXCORIATIONS ON THIGHS) Skin: Other (SERPIGINOUS BORDERS TO ULCERATED WOUNDS ON LOWER LEGS WITH IMPROVEMENT OF MACERATED TISSUE TO LEGS) Psych/Mental Status: Mental Status NL, Mood NL Results Lab Laboratory Tests 07/22/18 11:16: Glucometer 311H 07/22/18 15:48: Glucometer 250H 07/22/18 20:25: Glucometer 192H 07/23/18 05:30: White Blood Count 2.8L, Red Blood Count 3.05L, Hemoglobin 8.1L, Hematocrit 26L, Mean Corpuscular Volume 84, Mean Corpuscular Hemoglobin 27, Mean Corpuscular Hemoglobin Concent 32, Red Cell Distribution Width 17.3H, Platelet Count 24*L, Mean Platelet Volume , Sodium Level 139, Potassium Level 4.4, Chloride Level 102 , Carbon Dioxide Level 32, Anion Gap 5, Blood Urea Nitrogen 30H, Creatinine 0.68 , Estimat Glomerular Filtration Rate > 60, BUN/Creatinine Ratio 44, Glucose Level 154H, Calcium Level 7.7L, Corrected Calcium 9.1, Magnesium Level 1.9, Total Bilirubin 2.0H, Aspartate Amino Transf (AST/SGOT) 37H, Alanine Aminotransferase (ALT/SGPT) 32, Alkaline Phosphatase 105, Total Protein 5.0L, Albumin 2.2L Assessment/Plan Assessment/Plan Assess & Plan/Chief Complaint ADVERSE REACTION TO CHEMOTHERAPY/IMMUNOTHERAPY AGENT - PT FINISHED COURSE OF IV ANTIBIOTICS, CULTURES WERE NEGATIVE, IV STEROIDS HAVE BEEN INITIATED. DR. GARAY IS IN AGREEMENT THAT THE PT HAS HAD REACTION TO OPDIVO - THIS MEDICATION WAS THE LAST IN THE LINE OF DIFFERENT TREATMENTS CORDELIA HAS HAD FOR TX OF HIS HEPATOCELLULAR CARCINOMA WITH LACK OF TUMOR RESPONSE. HE IS AWARE ARE HIS SISTERS THAT THERE IS NO OTHER TREATMENT AVAILABLE AND HE CANNOT RESTART THE OPDIVO DUE TO HIS REACTION. HE WILL NEED TO BE ON THE IV STEROID FOR SEVERAL MORE DAYS - DOSE SCHEDULED TO BE DECREASED ON THURSDAY FROM 80MG TO 40MG IV Q6 HOURS.- WITH TRANSITION TO ORAL STEROIDS ON THURSDAY WITH PLANS FOR PLACEMENT AT A [facility] EARLY NEXT WEEK. I WILL WAIT TO TRANSITION TO ORAL MEDICATION WE MONITOR HIS LEG/SKIN CHANGES ON THE TOPICAL TREATMENTS WELL IV STEROIDS TO DECREASE HIS AUTOIMMUNE RESPONSE TO THE OPDIVO. PT HAS DRESSINGS ON LOWER LEGS - ADAPTIC, AQUACELL, ABD, KERLEX AND TUBE GAUZE HEPATOCELLULAR CARCINOMA METASTATIC TO LUNGS - SUPPORTIVE CARE ONLY AT THIS TIME. HX OF HEPATITIS C S/P CLEARANCE OF INFECTION CIRRHOSIS - CHRONIC - SUPPORTIVE CARE AT THIS TIME HYPERTENSION - RESUME HOME MEDICATIONS DIABETES MELLITUS - RESTART HOME MEDICATIONS, FSBS ACHS AND SLIDING SCALE B CHRONIC PAIN SYNDROME - RESUMED HOME REGIMEN CHRONIC ANXIETY AND DEPRESSION - RESUME HOME REGIMEN ESOPHAGEAL REFLUX - RESTART PANTOPRAZOLE COPD - RESTART BREATHING TREATMENTS TOBACCOISM - NICODERM CQ EDEMA - CONTINUE WITH LASIX 60MG IV BID THIS HAS IMPROVED HIS SWELLING A LITTLE - CHECK LABS IN MORNING PLANNING ON PLACEMENT OF PATIENT AT [facility] ON DISCHARGE Clinical Quality Measures DVT/VTE Risk/Contraindication: Risk Factor Score Per Nursin Contraindications-Pharm: Other *list below* Contraindications-Mechi: Other *list below* Other: gross wounds on lower legs, cannot place compression or scds, waiting on labs before ordering anticoag BRITTANY RIOS MD Jul 23, 2018 09:36
[2018-07-23] MEDS: hydrOXYzine (VISTARIL) 25 MG CAP PO SCH ×3 (09:58→21:58)
[2018-07-23] MEDS: PATCH REMOVAL TP SCH (09:59)
--- NOTE | 2018-07-23 10:39 | Oncology Progress Note ---
Subjective Date Seen by a Provider: Jul 23, 2018 Time Seen by a Provider: 10:31 Subjective/Events-last exam Skin rash on the back fading away No new skin lesions/rash Both lower extremity covered with dressing. They are better per nurse report. Data Review Labs Laboratory Tests 07/23/18 05:30 Laboratory Tests 07/22/18 11:16: Glucometer 311H 07/22/18 15:48: Glucometer 250H 07/22/18 20:25: Glucometer 192H 07/23/18 05:30: White Blood Count 2.8L, Red Blood Count 3.05L, Hemoglobin 8.1L, Hematocrit 26L, Red Cell Distribution Width 17.3H, Platelet Count 24*L, Blood Urea Nitrogen 30H , Glucose Level 154H, Calcium Level 7.7L, Total Bilirubin 2.0H, Aspartate Amino Transf (AST/SGOT) 37H, Total Protein 5.0L, Albumin 2.2L Physical Exam Vital Signs Vital Signs - First Documented 07/21/18 07/21/18 14:45 18:00 Temp 97.6 Pulse 79 Resp 18 B/P (MAP) 171/82 (111) Pulse Ox 90 O2 Delivery Room Air O2 Flow Rate 2.00 Capillary Refill : Height, Weight, BMI Height: 6'0.00" Weight: 225lbs. 0.0oz. 102.957454lg; 30.5 BMI Method:Estimated General Appearance: No Apparent Distress HEENT: PERRL/EOMI Respiratory: Lungs Clear, No Accessory Muscle Use, No Respiratory Distress Gastrointestinal: Non Tender, Soft, Distended Extremity: Inflammation, Swelling Neurologic/Psychiatric: Alert, Oriented x3 Impression & Plan Impression & Plan IMP: 1. Bilateral lower extremity cellulitis and blister wound, skin rash, wound culture negative, not responding to IV antibiotics as expected. Possible autoimmune related the reactions from Opdivo last dose 480mg given 07/08/18. On large dose of steroid, now slow tapering. 2. 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 AFP normal. Disease progressed on Sorafenib(Nexavar) and treatment changed to Opdivo at the end of 03/2018. 3. Hep C, genotype 1A, complted 24 weeks of Harvoni treatment 2014 with sustained viral response. No more intervention needed. 4. TIPS placement 2010, last evaluation a month ago 04/2018 and was told everything working and stable. 5. h/o hepatoencephalopathy 6. Liver failure, ascites. 7. DM 8. Gastroparesis 9. h/o Alcohol abuse. 10. Pancytopenia due to end stage of liver disease/failure. 11. Increasing abdominal girth. ?Ascites vs fatty tissue (since he is on steroid and has been eating excessively) or both. Plan: 1. Treat as autoimmune related dermatitis. Steroid taper based on clinical manifestation and judgment . There is no standard guideline on how long patient should be on the steroid. Hold off Opdivo treatment. 2. wound care 3. Monitoring blood sugar and BP while steroid. Treat accordingly. 4. Unless he becomes SOB and makes him very uncomfortable, I would not try to tape the ascites. We may create more potential problems. 5. Dr Savage covers for the weekend. Clinical Quality Measures DVT/VTE Risk/Contraindication: Risk Factor Score Per Nursin Contraindications-Pharm: Other *list below* Contraindications-Mechi: Other *list below* Other: gross wounds on lower legs, cannot place compression or scds, waiting on labs before ordering anticoag MICHI GARAY MD Jul 23, 2018 10:39
[2018-07-23] MEDS: VENlafaxine XR 75 MG (EFFEXOR XR) CAP PO SCH (12:11)
[2018-07-23] MEDS: KCL 20 MEQ TAB (K-DUR) PO SCH (12:11)
--- NOTE | 2018-07-23 12:49 | Diagnostic Imaging Report ---
Exam: Ultrasound abdomen limited. Date: July 23, 2018. Indication: 62-year-old male, Evaluation for ascites for potential paracentesis. Comparison: CT abdomen and pelvis September 28, 2017. Findings: Limited abdominal ultrasound was performed for assessment of ascites. There is minimal ascites noted. Impression: 1. Very minimal ascites insufficient in volume for paracentesis. Dictated by: Dictated on workstation # [id number]
[2018-07-23 17:51] VITALS: BP 161/73
[2018-07-23] MEDS: inSUlin DETERMIR 1 UNIT/0.01 ML (LEVEMIR) CHARGE PER UNIT SQ SCH (17:52)
[2018-07-23] MEDS: MIRTAZAPINE 15 MG (REMERON) TAB PO SCH (20:16)
[2018-07-23] MEDS: traZODone 50 MG (DESYREL) TAB PO SCH (20:16)
[2018-07-24 05:45] LABS: HEMATOCRIT 26 % (40-54); MEAN CORPUSCULAR HEMOGLOBIN 26 PG (25-34); MEAN CORPUSCULAR HGB CONC 31 G/DL (32-36); MEAN CORPUSCULAR VOLUME 85 FL (80-99); RED BLOOD COUNT 3.05 10^6/uL (4.35-5.85); RED CELL DISTRIBUTION WIDTH 16.8 % (10.0-14.5); WHITE BLOOD COUNT 2.7 10^3/uL (4.3-11.0)
[2018-07-24 05:47] LABS: PLATELET COUNT 23 10^3/uL (130-400)
[2018-07-24 06:00] VITALS: BP 154/72
[2018-07-24 06:02] LABS: ALANINE AMINOTRANSFERASE 35 U/L (0-55); ALBUMIN 2.2 GM/DL (3.2-4.5); ALKALINE PHOSPHATASE 95 U/L (40-136); BILIRUBIN,TOTAL 2.1 MG/DL (0.1-1.0); BUN/CREATININE RATIO 48; CALCIUM 7.8 MG/DL (8.5-10.1); CARBON DIOXIDE 32 MMOL/L (21-32); CHLORIDE 100 MMOL/L (98-107); CREATININE SERUM 0.67 MG/DL (0.60-1.30); GFR ESTIMATED > 60; GLUCOSE 198 MG/DL (70-105); POTASSIUM 4.3 MMOL/L (3.6-5.0); SODIUM 138 MMOL/L (135-145); TOTAL PROTEIN 4.8 GM/DL (6.4-8.2)
[2018-07-24] MEDS: LACTOBACILLUS ACIDOPHILUS (PROBIOTIC) CAPSULE PO SCH ×3 (06:22→16:15)
[2018-07-24] MEDS: methylPREDNISolone 125 MG (Solu-MEDROL) VIAL IVP SCH (06:22)
[2018-07-24] MEDS: inSUlin ASPART (NovoLOG) 1 UNIT/0.01 ML (CHARGE PER UNIT) SC SCH ×4 (06:23→20:23)
[2018-07-24] MEDS: hydrOXYzine (VISTARIL) 25 MG CAP PO SCH ×3 (06:23→18:56)
[2018-07-24] MEDS: PANTOPRAZOLE 20 MG TABLET (PROTONIX) PO SCH (06:23)
[2018-07-24] MEDS: RIFAXIMIN 550 MG TABLET (XIFAXAN) PO SCH ×2 (09:17→20:23)
[2018-07-24] MEDS: FUROSEMIDE 40 MG/4 ML INJ (LASIX) IVP SCH ×2 (09:17→14:07)
[2018-07-24] MEDS: NICOTINE 7 MG (NICODERM) PATCH TD SCH (09:17)
[2018-07-24] MEDS: PATCH REMOVAL TP SCH (09:18)
[2018-07-24] MEDS: VENlafaxine XR 75 MG (EFFEXOR XR) CAP PO SCH (11:37)
[2018-07-24] MEDS: KCL 20 MEQ TAB (K-DUR) PO SCH (11:37)
[2018-07-24] MEDS: morphine IMMEDIATE RELEASE 15 MG TABLET PO PRN (11:37)
[2018-07-24] MEDS: methylPREDNISolone 40 MG/ML (Solu-MEDROL) VIAL IV SCH ×2 (11:38→17:32)
[2018-07-24] MEDS: RT-ALBUTEROL SULF 2.5 MG/3 ML PRE-MIX VIAL INH SCH ×3 (11:51→18:57)
--- NOTE | 2018-07-24 13:49 | Physical Therapy Daily Note ---
PT Daily Note-Current Subjective Pt R sidelying upon arrival. Pt reports fatigued and in pain. Pt asked for more pain med, Nurse stated not time. Pain Numeric Pain Scale: 8 Location: Right, Left Location Body Site: Knee Pain Description: Ache Mental Status Patient Orientation: Person, Place, Situation Attachments: Oxygen Transfers Therapy Code Descriptions/Definitions Functional [place] Measure: 0=Not Assessed/NA 4=Minimal Assistance 1=Total Assistance 5=Supervision or Setup 2=Maximal Assistance 6=Modified [place] 3=Moderate Assistance 7=Complete [place] Therapy Quality Codes: 6 Independent with activity with or without an assistive device 5 Patient requires set up or clean up by helper. Patient completes activity by themselves 4 Supervision or touching assist (CGA). [place] provide cues , steadying assist 3 The helper provides less than half the effort to complete the activity 2 The helper provides more than half the effort to complete the activity 1 Dependent. The helper does all the effort to complete an activity 7 Patient refused to complete or attempt activity 9 The patient did not perform the activity before the current illness or injury 88 Not attempted due to Medical conditions or safety concerns Exercises Supine Ex: Rolling, Hip abd/add Seated Therapy Exercises: Sit to stand Treatments Pt attempts to complete Supine Ex then transfers to use restroom. Pt returns to bed at end of tx to rest. Pt has all needs met. Assessment Current Status: Fair Progress Pt's pain is limiting participation with PT. PT Clinical Staff Pharmacist Goals Clinical Staff Pharmacist Goals PT Fpc Goals Time Frame: Jul 28, 2018 Transfers (B,C,W/C) (FIM): 6 Sit to Lying (QC): 6 Lying-Sitting on Side/Bed(QC): 6 Sit to Stand (QC): 6 Rollin Roll Left to Right (QC): 6 Chair/[id number]-[id number] Xfer(QC): 6 Gait (FIM): 2 Distance: 50' Walk 10 feet (QC): 4 Walk 10ft-Uneven Surface(QC): 4 Walk 50ft with 2 Turns (QC): 4 Gait Level of Assist: 5 Gait Assistive Device: None, FWW PT Plan Problem List Problem List: Activity Tolerance, Functional Strength Treatment/Plan Treatment Plan: Continue Plan of Care Treatment Plan: Bed Mobility, Education, Functional Activity Court, Functional Strength, Gait, Safety, Therapeutic Exercise, Transfers Treatment Duration: Jul 28, 2018 Frequency: 6 times per week Estimated Hrs Per Day: .25 hour per day (15-30') Patient and/or Family Agrees t: Yes Safety Risks/Education Patient Education: Gait Training, Transfer Techniques, Correct Positioning, Safety Issues Teaching Recipient: Patient Teaching Methods: Discussion Response to Teaching: Verbalize Understanding Time/GCodes Time In: 1255 Time Out: 1310 Total Billed Treatment Time: 15 Total Billed Treatment 1, FA (15m) G Codes Necessary: IOANA Marc MANAGER [employer] Jul 24, 2018 13:49
[2018-07-24] MEDS: inSUlin DETERMIR 1 UNIT/0.01 ML (LEVEMIR) CHARGE PER UNIT SQ SCH (16:15)
[2018-07-24 18:00] VITALS: BP 136/64
[2018-07-24] MEDS: MIRTAZAPINE 15 MG (REMERON) TAB PO SCH (20:23)
[2018-07-24] MEDS: traZODone 50 MG (DESYREL) TAB PO SCH (20:23)
[2018-07-24] MEDS: morphine ER 15 MG (MS CONTIN) TAB PO PRN (21:23)
[2018-07-25] MEDS: methylPREDNISolone 40 MG/ML (Solu-MEDROL) VIAL IV SCH ×4 (00:04→20:50)
[2018-07-25] MEDS: inSUlin ASPART (NovoLOG) 1 UNIT/0.01 ML (CHARGE PER UNIT) SC SCH ×4 (06:00→20:51)
[2018-07-25] MEDS: PANTOPRAZOLE 20 MG TABLET (PROTONIX) PO SCH (06:04)
[2018-07-25] MEDS: LACTOBACILLUS ACIDOPHILUS (PROBIOTIC) CAPSULE PO SCH ×3 (06:04→17:38)
[2018-07-25] MEDS: hydrOXYzine (VISTARIL) 25 MG CAP PO SCH ×3 (06:04→22:02)
[2018-07-25] MEDS: RT-ALBUTEROL SULF 2.5 MG/3 ML PRE-MIX VIAL INH SCH ×3 (07:02→19:48)
[2018-07-25 08:00] VITALS: BP 160/74
[2018-07-25] MEDS: morphine ER 15 MG (MS CONTIN) TAB PO PRN ×2 (08:00→13:01)
[2018-07-25] MEDS: RIFAXIMIN 550 MG TABLET (XIFAXAN) PO SCH ×2 (08:00→20:51)
[2018-07-25] MEDS: NICOTINE 7 MG (NICODERM) PATCH TD SCH (08:00)
[2018-07-25] MEDS: PATCH REMOVAL TP SCH (08:01)
[2018-07-25] MEDS: FUROSEMIDE 40 MG/4 ML INJ (LASIX) IVP SCH ×2 (08:01→17:38)
[2018-07-25] MEDS: KCL 20 MEQ TAB (K-DUR) PO SCH (11:23)
[2018-07-25] MEDS: VENlafaxine XR 75 MG (EFFEXOR XR) CAP PO SCH (11:23)
--- NOTE | 2018-07-25 11:57 | Progress Note-Hospitalist ---
Subjective HPI/CC On Admission Date Seen by Provider: Jul 25, 2018 Time Seen by Provider: 11:15 Subjective/Events-last exam Patient doing about the same Having diarrhea so C. difficile colitis check is ordered Tolerating all meds well IV Lasix maintain Titrating IV steroids down since they were 40 MG every 6 hours Patient denies any pain other than the chronic leg pain Review of Systems General: Fatigue Gastrointestinal: Diarrhea Musculoskeletal: leg pain Objective Exam Vital Signs Vital Signs Date Time Temp Pulse Resp B/P (MAP) Pulse Ox O2 Delivery O2 Flow Rate FiO2 07/25/18 08:00 97.8 66 18 160/74 (102) 97 Nasal Cannula 2.00 07/24/18 08:00 95 Capillary Refill : General Appearance: No Apparent Distress, WD/WN, Chronically ill Respiratory: Chest Non Tender, Lungs Clear, Normal Breath Sounds, No Accessory Muscle Use, No Respiratory Distress Cardiovascular: Regular Rate, Rhythm, No Edema, No Gallop, No JVD, No Murmur, Normal Peripheral Pulses Extremity: Pedal Edema Neurologic/Psychiatric: Alert, Oriented x3, No Motor/Sensory Deficits, Normal Mood/Affect Skin: Normal Color, Warm/Dry, Other (improved cellulitis of the legs) Results/Procedures Lab Patient resulted labs reviewed. Assessment/Plan Assessment and Plan Assess & Plan/Chief Complaint Per PCP acute med surg H&P: CELLULITIS BILATERAL LOWER EXTREMITIES HEPATOCELLULAR CARCINOMA METASTATIC TO LUNGS HX OF HEPATITIS C S/P CLEARANCE OF INFECTION CIRRHOSIS HYPERTENSION DIABETES MELLITUS CHRONIC PAIN SYNDROME CHRONIC ANXIETY ESOPHAGEAL REFLUX COPD TOBACCOISM Acute diarrhea Plan: Check for C diff colitis Maintain Lactinex in meantime Diagnosis/Problems Diagnosis/Problems (1) Diarrhea Status: Acute Qualifiers: Diarrhea type: unspecified type Qualified Codes: R19.7 - Diarrhea, unspecified (2) Cellulitis and abscess of left leg Status: Acute (3) Chronic kidney disease (CKD) Status: Chronic Qualifiers: Chronic kidney disease stage: stage 3 (moderate) Qualified Codes: N18.3 - Chronic kidney disease, stage 3 (moderate) (4) Hepatitis C Status: Chronic Qualifiers: Viral hepatitis chronicity: unspecified Hepatic coma status: without hepatic coma Qualified Codes: B19.20 - Unspecified viral hepatitis C without hepatic coma (5) Alcoholic dementia Status: Chronic Qualifiers: Dementia behavioral disturbance: without behavioral disturbance Qualified Codes: F10.27 - Alcohol dependence with alcohol-induced persisting dementia (6) Hepatocellular carcinoma Status: Chronic (7) Hypertension Status: Chronic Qualifiers: Hypertension type: essential hypertension Qualified Codes: I10 - Essential (primary) hypertension (8) Ascites Status: Chronic Qualifiers: Ascites type: due to alcoholic cirrhosis Qualified Codes: K70.31 - Alcoholic cirrhosis of liver with ascites (9) COPD exacerbation Status: Acute Clinical Quality Measures DVT/VTE Risk/Contraindication: Risk Factor Score Per Nursin Contraindications-Pharm: Other *list below* Contraindications-Mechi: Other *list below* Other: gross wounds on lower legs, cannot place compression or scds, waiting on labs before ordering anticoag HELEN GAXIOLA DO Jul 25, 2018 11:57
[2018-07-25 12:00] VITALS: BP 135/69
[2018-07-25] MEDS: morphine IMMEDIATE RELEASE 15 MG TABLET PO PRN (12:00)
[2018-07-25] MEDS: inSUlin DETERMIR 1 UNIT/0.01 ML (LEVEMIR) CHARGE PER UNIT SQ SCH (17:39)
[2018-07-25 18:00] VITALS: BP_SYST 154; BP_SYST 195; BP_DIAS 74; BP_DIAS 93
[2018-07-25] MEDS: ACETAMINOPHEN 500 MG TAB (TYLENOL) PO PRN (19:43)
[2018-07-25] MEDS: traZODone 50 MG (DESYREL) TAB PO SCH (20:51)
[2018-07-25] MEDS: MIRTAZAPINE 15 MG (REMERON) TAB PO SCH (20:51)
[2018-07-26 05:28] LABS: HEMOGLOBIN 8.4 G/DL (13.3-17.7); MEAN PLATELET VOLUME 11.8 FL (7.4-10.4); RED BLOOD COUNT 3.23 10^6/uL (4.35-5.85); RED CELL DISTRIBUTION WIDTH 17.1 % (10.0-14.5); WHITE BLOOD COUNT 7.2 10^3/uL (4.3-11.0)
[2018-07-26 05:55] LABS: ALANINE AMINOTRANSFERASE 39 U/L (0-55); ALBUMIN 2.2 GM/DL (3.2-4.5); ALKALINE PHOSPHATASE 104 U/L (40-136); BILIRUBIN,TOTAL 2.8 MG/DL (0.1-1.0); BUN/CREATININE RATIO 49; CALCIUM 7.7 MG/DL (8.5-10.1); CARBON DIOXIDE 33 MMOL/L (21-32); CHLORIDE 98 MMOL/L (98-107); CREATININE SERUM 0.73 MG/DL (0.60-1.30); GFR ESTIMATED > 60; GLUCOSE 219 MG/DL (70-105); POTASSIUM 4.3 MMOL/L (3.6-5.0); SODIUM 139 MMOL/L (135-145); TOTAL PROTEIN 4.9 GM/DL (6.4-8.2)
[2018-07-26] MEDS: hydrOXYzine (VISTARIL) 25 MG CAP PO SCH ×3 (06:11→22:44)
[2018-07-26] MEDS: inSUlin ASPART (NovoLOG) 1 UNIT/0.01 ML (CHARGE PER UNIT) SC SCH ×4 (06:11→22:43)
[2018-07-26] MEDS: LACTOBACILLUS ACIDOPHILUS (PROBIOTIC) CAPSULE PO SCH ×3 (06:12→17:21)
[2018-07-26] MEDS: PANTOPRAZOLE 20 MG TABLET (PROTONIX) PO SCH (06:12)
[2018-07-26] MEDS: morphine ER 15 MG (MS CONTIN) TAB PO PRN (06:53)
[2018-07-26] MEDS: FUROSEMIDE 40 MG/4 ML INJ (LASIX) IVP SCH (07:43)
[2018-07-26] MEDS: NICOTINE 7 MG (NICODERM) PATCH TD SCH (07:43)
[2018-07-26] MEDS: PATCH REMOVAL TP SCH (07:44)
[2018-07-26] MEDS: RIFAXIMIN 550 MG TABLET (XIFAXAN) PO SCH ×2 (07:44→22:44)
[2018-07-26] MEDS: methylPREDNISolone 40 MG/ML (Solu-MEDROL) VIAL IV SCH ×2 (07:44→22:44)
[2018-07-26 08:00] VITALS: BP 122/63
--- NOTE | 2018-07-26 08:41 | Progress Note ---
Subjective Date Seen by a Provider: Jul 26, 2018 Time Seen by a Provider: 08:10 Subjective/Events-last exam PT IS A 62 Y/O MALE WHO IS WELL KNOWN TO ME. HE REPORTS THAT OVER THE WEEKEND HE HAS NOT BEEN FEELING WELL. NURSING STAFF NOTES THAT CORDELIA HAD HER CALL HIS SISTERS HE IS FEELING SO POORLY. HE REPORTS THAT HE FEELS LIKE HIS PAIN IS NOT CONTROLLED AND HE HAS STOMACH UPSET. HE THINKS THAT HE IS GETTING TOO MUCH LASIX. Review of Systems General: No Chills; Fatigue, Malaise, Appetite (DECREASED - DOES NOT LIKE THE FOODS HE IS GETTING ON HIS DIABETIC DIET) HEENT: No Head Aches, No Dysphasia Pulmonary: Dyspnea; No Cough Cardiovascular: No: Chest Pain, Palpitations Gastrointestinal: Abdominal Pain, Constipation; No: Nausea Genitourinary: Frequency Musculoskeletal: back pain, leg pain Neurological: Weakness, Confusion (INTERMITTENT) Objective Exam Last Set of Vital Signs Vital Signs Date Time Temp Pulse Resp B/P (MAP) Pulse Ox O2 Delivery O2 Flow Rate FiO2 07/25/18 19:49 98 Nasal Cannula 2.00 07/25/18 18:00 97.7 80 22 154/74 (100) 07/24/18 08:00 95 Capillary Refill : I&O Intake and Output 07/26/18 00:00 Intake Total 2090 ml Output Total 1250 ml Balance 840 ml Intake Oral 2090 ml Output Urine Total 1250 ml # Voids 12 General: Alert, Oriented X3, Cooperative, No Acute Distress HEENT: Atraumatic, PERRLA Neck: Supple Lungs: Clear to Auscultation, Other (DECREASED AIR MOVEMENT AT BSE) Heart: Regular Rate Abdomen: Normal Bowel Sounds, Soft, Other (LIVER EDGE PALPATED IN RIGHT LATERAL MID ABDOMEN, NONTENDER, NO FLUID WAVE) Extremities: Other (IMPROVED EDEMA - ONLY TRACE EDEMA OF LATERAL THIGHS) Skin: Other (IMPROVED ULCERATION, IMPROVED ERYTHEMA OF BILATERAL LOWER LEGS, STILL WITH SOME MACERATION OF TISSUE IN MEDIAL ASPECT OF WOUND ON LEGS) Psych/Mental Status: Mental Status NL, Mood NL Results Lab Laboratory Tests 07/25/18 11:13: Glucometer 261H 07/25/18 16:40: Glucometer 206H 07/25/18 20:04: Glucometer 230H 07/26/18 05:18: White Blood Count 7.2, Red Blood Count 3.23L, Hemoglobin 8.4L, Hematocrit 27L, Mean Corpuscular Volume 85, Mean Corpuscular Hemoglobin 26, Mean Corpuscular Hemoglobin Concent 31L, Red Cell Distribution Width 17.1H, Platelet Count 43L, Mean Platelet Volume 11.8H, Sodium Level 139, Potassium Level 4.3, Chloride Level 98, Carbon Dioxide Level 33H, Anion Gap 8, Blood Urea Nitrogen 36H, Creatinine 0.73, Estimat Glomerular Filtration Rate > 60, BUN/Creatinine Ratio 49, Glucose Level 219H, Calcium Level 7.7L, Corrected Calcium 9.1, Total Bilirubin 2.8H, Aspartate Amino Transf (AST/SGOT) 39H, Alanine Aminotransferase (ALT/SGPT) 39, Alkaline Phosphatase 104, Total Protein 4.9L, Albumin 2.2L Assessment/Plan Assessment/Plan Assess & Plan/Chief Complaint ADVERSE REACTION TO CHEMOTHERAPY/IMMUNOTHERAPY AGENT - PT FINISHED COURSE OF IV ANTIBIOTICS, CULTURES WERE NEGATIVE, IV STEROIDS HAVE BEEN INITIATED. DR. GARAY IS IN AGREEMENT THAT THE PT HAS HAD REACTION TO OPDIVO - THIS MEDICATION WAS THE LAST IN THE LINE OF DIFFERENT TREATMENTS CORDELIA HAS HAD FOR TX OF HIS HEPATOCELLULAR CARCINOMA WITH LACK OF TUMOR RESPONSE. HE IS AWARE ARE HIS SISTERS THAT THERE IS NO OTHER TREATMENT AVAILABLE AND HE CANNOT RESTART THE OPDIVO DUE TO HIS REACTION. HE WILL NEED TO BE ON THE IV STEROID FOR SEVERAL MORE DAYS - DOSE WAS DECREASED ON THURSDAY FROM 80MG TO 40MG IV Q6 HOURS.- WITH TRANSITION TO ORAL STEROIDS ON THURSDAY WITH PLANS FOR PLACEMENT AT A [facility] ON THURSDAY. I WILL WAIT TO TRANSITION TO ORAL MEDICATION WE MONITOR HIS LEG/ SKIN CHANGES ON THE TOPICAL TREATMENTS WELL IV STEROIDS TO DECREASE HIS AUTOIMMUNE RESPONSE TO THE OPDIVO. PT HAS DRESSINGS ON LOWER LEGS - ADAPTIC, AQUACELL, ABD, KERLEX AND TUBE GAUZE WOUNDS ON LEGS HAVE IMPROVED SIGNIFICANTLY OVER THE WEEKEND. HEPATOCELLULAR CARCINOMA METASTATIC TO LUNGS - SUPPORTIVE CARE ONLY AT THIS TIME. BILIRUBIN LEVEL CONTINUES TO BE HIGH ANTICIPATED WITH HIS METASTATIC HEPATOCELLULAR CARCINOMA. HX OF HEPATITIS C S/P CLEARANCE OF INFECTION CIRRHOSIS - CHRONIC - SUPPORTIVE CARE AT THIS TIME HYPERTENSION - RESUME HOME MEDICATIONS DIABETES MELLITUS - RESTART HOME MEDICATIONS, FSBS ACHS AND SLIDING SCALE B CHRONIC PAIN SYNDROME - RESUMED HOME REGIMEN CHRONIC ANXIETY AND DEPRESSION - RESUME HOME REGIMEN ESOPHAGEAL REFLUX - RESTART PANTOPRAZOLE COPD - RESTART BREATHING TREATMENTS TOBACCOISM - NICODERM CQ EDEMA - DECREASE LASIX TO 40MG IV DAILY THIS HAS IMPROVED HIS SWELLING A LITTLE - CHECK LABS IN MORNING. CONSTIPATION - MIRALAX X 1 NOW AND THEN NIGHTLY AND ONE TIME DOSE OF RELISTOR TODAY PLANNING ON PLACEMENT OF PATIENT AT [facility] ON DISCHARGE Clinical Quality Measures DVT/VTE Risk/Contraindication: Risk Factor Score Per Nursin Contraindications-Pharm: Other *list below* Contraindications-Mechi: Other *list below* Other: gross wounds on lower legs, cannot place compression or scds, waiting on labs before ordering BRITTANY Crocker MD Jul 26, 2018 08:41
[2018-07-26] MEDS ORDERED: METHYLNALTREXONE 12 MG/0.6 ML (RELISTOR) VIAL SQ NR (08:45)
[2018-07-26] MEDS ORDERED: POLYETHYLENE GLYCOL 17 GM (MIRALAX) PACK PO NR (08:45)
[2018-07-26] MEDS: RT-ALBUTEROL SULF 2.5 MG/3 ML PRE-MIX VIAL INH SCH ×3 (10:19→19:24)
[2018-07-26] MEDS: VENlafaxine XR 75 MG (EFFEXOR XR) CAP PO SCH (11:15)
[2018-07-26] MEDS: ACETAMINOPHEN 500 MG TAB (TYLENOL) PO PRN (11:16)
[2018-07-26] MEDS: KCL 20 MEQ TAB (K-DUR) PO SCH (11:16)
[2018-07-26] MEDS: morphine IMMEDIATE RELEASE 15 MG TABLET PO PRN (12:07)
[2018-07-26] MEDS ORDERED: ONDANSETRON 4 MG/2 ML (SDV) Z0FRAN IVP PRN (12:30)
--- NOTE | 2018-07-26 14:24 | Physical Therapy Progress Note ---
Therapy Progress Note Patient declined PT secondary to fatigue. Education with patient on importance of activity to improve function, however, patient continued to decline PT. Will attempt in a.m. 1 ref UNIQUE CHRISTENSEN PT Jul 26, 2018 14:24
[2018-07-26] MEDS: ONDANSETRON 4 MG/2 ML (SDV) Z0FRAN IVP PRN (14:32)
--- NOTE | 2018-07-26 15:12 | Oncology Progress Note ---
Subjective Date Seen by a Provider: Jul 26, 2018 Time Seen by a Provider: 15:07 Subjective/Events-last exam Pt is tired. No specific complaints Both legs are covered with dressing. Per nurse report, the skin lesions are better. I can see the edges of the lesions drying up and scaling. On steroid tapering for dermatitis from Opdivo. Data Review Labs Laboratory Tests 07/26/18 05:18 Laboratory Tests 07/23/18 16:33: Glucometer 230H 07/23/18 20:09: Glucometer 234H 07/24/18 05:35: White Blood Count 2.7L, Red Blood Count 3.05L, Hemoglobin 8.0L, Hematocrit 26L, Mean Corpuscular Hemoglobin Concent 31L, Red Cell Distribution Width 16.8H, Platelet Count 23*L, Blood Urea Nitrogen 32H, Glucose Level 198H, Calcium Level 7.8L, Total Bilirubin 2.1H, Total Protein 4.8L, Albumin 2.2L 07/24/18 10:56: Glucometer 177H 07/24/18 16:11: Glucometer 247H 07/24/18 20:17: Glucometer 322H 07/25/18 06:00: Glucometer 178H 07/25/18 11:13: Glucometer 261H 07/25/18 16:40: Glucometer 206H 07/25/18 20:04: Glucometer 230H 07/26/18 05:18: Red Blood Count 3.23L, Hemoglobin 8.4L, Hematocrit 27L, Mean Corpuscular Hemoglobin Concent 31L, Red Cell Distribution Width 17.1H, Platelet Count 43L, Mean Platelet Volume 11.8H, Carbon Dioxide Level 33H, Blood Urea Nitrogen 36H, Glucose Level 219H, Calcium Level 7.7L, Total Bilirubin 2.8H, Aspartate Amino Transf (AST/SGOT) 39H, Total Protein 4.9L, Albumin 2.2L 07/26/18 11:14: Glucometer 178H Laboratory Tests 07/26/18 05:18 Physical Exam Vital Signs Vital Signs - First Documented 07/21/18 07/21/18 07/24/18 14:45 18:00 08:00 Temp 97.6 Pulse 79 Resp 18 B/P (MAP) 171/82 (111) Pulse Ox 90 O2 Delivery Room Air O2 Flow Rate 2.00 FiO2 95 Capillary Refill : Height, Weight, BMI Height: 6'0.00" Weight: 225lbs. 0.0oz. 102.789533ti; 30.5 BMI Method:Estimated General Appearance: No Apparent Distress HEENT: PERRL/EOMI Neck: Non Tender, Supple Respiratory: No Accessory Muscle Use, No Respiratory Distress Cardiovascular: Regular Rate, Rhythm Gastrointestinal: Non Tender, Soft, Distended Neurologic/Psychiatric: Alert, Oriented x3 Impression & Plan Impression & Plan IMP: 1. Bilateral lower extremity cellulitis and blister wound, skin rash, wound culture negative, not responding to IV antibiotics as expected. Possible autoimmune related the reactions from Opdivo last dose 480mg given 07/08/18. On large dose of steroid, now slow tapering. 2. 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 AFP normal. Disease progressed on Sorafenib(Nexavar) and treatment changed to Opdivo at the end of 03/2018. 3. Hep C, genotype 1A, complted 24 weeks of Harvoni treatment 2014 with sustained viral response. No more intervention needed. 4. TIPS placement 2010, last evaluation a month ago 04/2018 and was told everything working and stable. 5. h/o hepatoencephalopathy 6. Liver failure, ascites. 7. DM 8. Gastroparesis 9. h/o Alcohol abuse. 10. Pancytopenia due to end stage of liver disease/failure. 11. Increasing abdominal girth. ?Ascites vs fatty tissue (since he is on steroid and has been eating excessively) or both. Plan: 1. Treat as autoimmune related dermatitis. Steroid taper based on clinical manifestation and judgment . There is no standard guideline on how long patient should be on the steroid. I feel that we need to have slow taper over 2-3 weeks and then off. Hold off Opdivo treatment. 2. wound care 3. Monitoring blood sugar and BP while steroid. Treat accordingly. 4. Unless he becomes SOB and makes him very uncomfortable, I would not try to tape the ascites. We may create more potential problems. Clinical Quality Measures DVT/VTE Risk/Contraindication: Risk Factor Score Per Nursin Contraindications-Pharm: Other *list below* Contraindications-Mechi: Other *list below* Other: gross wounds on lower legs, cannot place compression or scds, waiting on labs before ordering anticoag MICHI GARAY MD Jul 26, 2018 15:12
[2018-07-26] MEDS: inSUlin DETERMIR 1 UNIT/0.01 ML (LEVEMIR) CHARGE PER UNIT SQ SCH (17:21)
[2018-07-26 18:00] VITALS: BP 150/89
[2018-07-26] MEDS: POLYETHYLENE GLYCOL 17 GM (MIRALAX) PACK PO SCH (22:43)
[2018-07-26] MEDS: traZODone 50 MG (DESYREL) TAB PO SCH (22:44)
[2018-07-26] MEDS: MIRTAZAPINE 15 MG (REMERON) TAB PO SCH (22:44)
[2018-07-27] MEDS: inSUlin ASPART (NovoLOG) 1 UNIT/0.01 ML (CHARGE PER UNIT) SC SCH ×4 (05:32→23:07)
[2018-07-27] MEDS: PANTOPRAZOLE 20 MG TABLET (PROTONIX) PO SCH (05:41)
[2018-07-27] MEDS: LACTOBACILLUS ACIDOPHILUS (PROBIOTIC) CAPSULE PO SCH ×3 (05:41→16:51)
[2018-07-27] MEDS: hydrOXYzine (VISTARIL) 25 MG CAP PO SCH ×3 (05:41→23:07)
[2018-07-27 06:33] VITALS: BP 143/67
[2018-07-27] MEDS: FUROSEMIDE 40 MG/4 ML INJ (LASIX) IVP SCH (08:58)
[2018-07-27] MEDS: methylPREDNISolone 40 MG/ML (Solu-MEDROL) VIAL IV SCH (08:58)
[2018-07-27] MEDS: RIFAXIMIN 550 MG TABLET (XIFAXAN) PO SCH ×2 (08:58→23:07)
[2018-07-27] MEDS: NICOTINE 7 MG (NICODERM) PATCH TD SCH (08:58)
[2018-07-27] MEDS: PATCH REMOVAL TP SCH (08:58)
--- NOTE | 2018-07-27 09:07 | Progress Note ---
Objective Exam Last Set of Vital Signs Vital Signs Date Time Temp Pulse Resp B/P (MAP) Pulse Ox O2 Delivery O2 Flow Rate FiO2 07/27/18 06:33 97.4 75 16 143/67 (92) 93 Nasal Cannula 2.00 07/24/18 08:00 95 Capillary Refill : I&O Intake and Output 07/27/18 00:00 Intake Total 2330 ml Balance 2330 ml Intake Oral 2330 ml # Voids 15 # Bowel Movements 4 General: Alert, Oriented X3, Cooperative, No Acute Distress HEENT: Atraumatic, PERRLA Neck: Supple Lungs: Clear to Auscultation, Other (DECREASED AIR MOVEMENT AT BSE) Heart: Regular Rate Abdomen: Normal Bowel Sounds, Soft, Other (LIVER EDGE PALPATED IN RIGHT LATERAL MID ABDOMEN, NONTENDER, NO FLUID WAVE) Extremities: Other (IMPROVED EDEMA - ONLY TRACE EDEMA OF LATERAL THIGHS) Skin: Other (IMPROVED ULCERATION, IMPROVED ERYTHEMA OF BILATERAL LOWER LEGS, STILL WITH SOME MACERATION OF TISSUE IN MEDIAL ASPECT OF WOUND ON LEGS) Psych/Mental Status: Mental Status NL, Mood NL Results Lab Laboratory Tests 07/26/18 11:14: Glucometer 178H 07/26/18 15:20: Glucometer 320H 07/26/18 15:49: Glucometer 305H 07/26/18 19:41: Glucometer 289H 07/26/18 22:37: Glucometer 262H 07/27/18 05:29: Glucometer 146H Assessment/Plan Assessment/Plan Assess & Plan/Chief Complaint ADVERSE REACTION TO CHEMOTHERAPY/IMMUNOTHERAPY AGENT - PT FINISHED COURSE OF IV ANTIBIOTICS, CULTURES WERE NEGATIVE, IV STEROIDS HAVE BEEN INITIATED. DR. GARAY IS IN AGREEMENT THAT THE PT HAS HAD REACTION TO OPDIVO - THIS MEDICATION WAS THE LAST IN THE LINE OF DIFFERENT TREATMENTS CORDELIA HAS HAD FOR TX OF HIS HEPATOCELLULAR CARCINOMA WITH LACK OF TUMOR RESPONSE. HE IS AWARE ARE HIS SISTERS THAT THERE IS NO OTHER TREATMENT AVAILABLE AND HE CANNOT RESTART THE OPDIVO DUE TO HIS REACTION. HE WILL NEED TO BE ON THE IV STEROID FOR SEVERAL MORE DAYS - DOSE WAS DECREASED ON THURSDAY FROM 80MG TO 40MG IV Q6 HOURS.- WITH TRANSITION TO ORAL STEROIDS ON THURSDAY WITH PLANS FOR PLACEMENT AT A [facility] ON THURSDAY. I WILL WAIT TO TRANSITION TO ORAL MEDICATION WE MONITOR HIS LEG/ SKIN CHANGES ON THE TOPICAL TREATMENTS WELL IV STEROIDS TO DECREASE HIS AUTOIMMUNE RESPONSE TO THE OPDIVO. PT HAS DRESSINGS ON LOWER LEGS - ADAPTIC, AQUACELL, ABD, KERLEX AND TUBE GAUZE WOUNDS ON LEGS HAVE IMPROVED SIGNIFICANTLY OVER THE WEEKEND. HEPATOCELLULAR CARCINOMA METASTATIC TO LUNGS - SUPPORTIVE CARE ONLY AT THIS TIME. BILIRUBIN LEVEL CONTINUES TO BE HIGH ANTICIPATED WITH HIS METASTATIC HEPATOCELLULAR CARCINOMA. HX OF HEPATITIS C S/P CLEARANCE OF INFECTION CIRRHOSIS - CHRONIC - SUPPORTIVE CARE AT THIS TIME HYPERTENSION - RESUME HOME MEDICATIONS DIABETES MELLITUS - RESTART HOME MEDICATIONS, FSBS ACHS AND SLIDING SCALE B CHRONIC PAIN SYNDROME - RESUMED HOME REGIMEN CHRONIC ANXIETY AND DEPRESSION - RESUME HOME REGIMEN ESOPHAGEAL REFLUX - RESTART PANTOPRAZOLE COPD - RESTART BREATHING TREATMENTS TOBACCOISM - NICODERM CQ EDEMA - DECREASE LASIX TO 40MG IV DAILY THIS HAS IMPROVED HIS SWELLING A LITTLE - CHECK LABS IN MORNING. CONSTIPATION - MIRALAX X 1 NOW AND THEN NIGHTLY AND ONE TIME DOSE OF RELISTOR TODAY PLANNING ON PLACEMENT OF PATIENT AT [facility] ON DISCHARGE Clinical Quality Measures DVT/VTE Risk/Contraindication: Risk Factor Score Per Nursin Contraindications-Pharm: Other *list below* Contraindications-Mechi: Other *list below* Other: gross wounds on lower legs, cannot place compression or scds, waiting on labs before ordering anticoag BRITTANY RIOS MD Jul 27, 2018 09:07
[2018-07-27 09:25] VITALS: BP 112/69
[2018-07-27] MEDS: RT-ALBUTEROL SULF 2.5 MG/3 ML PRE-MIX VIAL INH SCH ×3 (10:45→19:59)
--- NOTE | 2018-07-27 10:49 | Physical Therapy Progress Note ---
Therapy Progress Note Patient declined PT on this date due to fatigue. Patient appears to have minimal motivation to increase activity. Nursing and physician are aware. Plan dismissal to [place] tomorrow per report. 1 ref UNIQUE CHRISTENSEN PT Jul 27, 2018 10:49
--- NOTE | 2018-07-27 12:16 | Diagnostic Imaging Report ---
INDICATION: Abdominal fullness. Evaluation of abdominal fluid for potential paracentesis. TECHNIQUE: Multiple, limited Real-time grayscale sonographic images were obtained of the abdomen. CORRELATION STUDY: 07/23/2018. FINDINGS: This is a fairly limited examination with the patient in the left lateral decubitus position as he did not want to be supine for the examination. There do appear to be very small pockets of fluid within the left side of the abdomen; however, this is a fairly small quantity and appears to be likely insufficient for therapeutic paracentesis. IMPRESSION: Very small amount of ascites present, likely insufficient for potential therapeutic paracentesis. Dictated by: Dictated on workstation # [id number]
[2018-07-27] MEDS: VENlafaxine XR 75 MG (EFFEXOR XR) CAP PO SCH (12:28)
[2018-07-27] MEDS: KCL 20 MEQ TAB (K-DUR) PO SCH (12:29)
[2018-07-27] MEDS: morphine ER 15 MG (MS CONTIN) TAB PO PRN (14:29)
[2018-07-27] MEDS: ONDANSETRON 4 MG/2 ML (SDV) Z0FRAN IVP PRN (15:46)
--- NOTE | 2018-07-27 16:44 | Oncology Progress Note ---
Subjective Date Seen by a Provider: Jul 27, 2018 Time Seen by a Provider: 16:41 Subjective/Events-last exam No new issues. Steroid slow taper Possible discharge to group home tomorrow. Data Review Labs Laboratory Tests 07/24/18 20:17: Glucometer 322H 07/25/18 06:00: Glucometer 178H 07/25/18 11:13: Glucometer 261H 07/25/18 16:40: Glucometer 206H 07/25/18 20:04: Glucometer 230H 07/26/18 05:18: Red Blood Count 3.23L, Hemoglobin 8.4L, Hematocrit 27L, Mean Corpuscular Hemoglobin Concent 31L, Red Cell Distribution Width 17.1H, Platelet Count 43L, Mean Platelet Volume 11.8H, Carbon Dioxide Level 33H, Blood Urea Nitrogen 36H, Glucose Level 219H, Calcium Level 7.7L, Total Bilirubin 2.8H, Aspartate Amino Transf (AST/SGOT) 39H, Total Protein 4.9L, Albumin 2.2L 07/26/18 11:14: Glucometer 178H 07/26/18 15:20: Glucometer 320H 07/26/18 15:49: Glucometer 305H 07/26/18 19:41: Glucometer 289H 07/26/18 22:37: Glucometer 262H 07/27/18 05:29: Glucometer 146H 07/27/18 11:40: Glucometer 177H 07/27/18 16:32: Glucometer 270H Physical Exam Vital Signs Vital Signs - First Documented 07/21/18 07/21/18 07/24/18 14:45 18:00 08:00 Temp 97.6 Pulse 79 Resp 18 B/P (MAP) 171/82 (111) Pulse Ox 90 O2 Delivery Room Air O2 Flow Rate 2.00 FiO2 95 Capillary Refill : Height, Weight, BMI Height: 6'0.00" Weight: 225lbs. 0.0oz. 102.933341sz; 30.5 BMI Method:Estimated General Appearance: No Apparent Distress HEENT: PERRL/EOMI Neck: Non Tender, Supple Respiratory: Lungs Clear, No Accessory Muscle Use, No Respiratory Distress Cardiovascular: Regular Rate, Rhythm Gastrointestinal: Non Tender, Soft Extremity: Swelling, Other (covered with dressing both legs) Neurologic/Psychiatric: Alert, Oriented x3 Impression & Plan Impression & Plan IMP: 1. Bilateral lower extremity cellulitis and blister wound, skin rash, wound culture negative, not responding to IV antibiotics as expected. Possible autoimmune related the reactions from Opdivo last dose 480mg given 07/08/18. On large dose of steroid, now slow tapering. 2. 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 AFP normal. Disease progressed on Sorafenib(Nexavar) and treatment changed to Opdivo at the end of 03/2018. 3. Hep C, genotype 1A, complted 24 weeks of Harvoni treatment 2014 with sustained viral response. No more intervention needed. 4. TIPS placement 2010, last evaluation a month ago 04/2018 and was told everything working and stable. 5. h/o hepatoencephalopathy 6. Liver failure, ascites. 7. DM 8. Gastroparesis 9. h/o Alcohol abuse. 10. Pancytopenia due to end stage of liver disease/failure. 11. Increasing abdominal girth. ?Ascites vs fatty tissue (since he is on steroid and has been eating excessively) or both. Plan: 1. Treat as autoimmune related dermatitis. Steroid taper based on clinical manifestation and judgment . There is no standard guideline on how long patient should be on the steroid. I feel that we need to have slow taper over 2-3 weeks and then off. Hold off Opdivo treatment. 2. wound care 3. Monitoring blood sugar and BP while steroid. Treat accordingly. 4. Unless he becomes SOB and makes him very uncomfortable, I would not try to tape the ascites. We may create more potential problems. 5. I will see him in 3-[facility] weeks [facility]. I will discuss with him and the family about the hospice at that time if they are ready. Clinical Quality Measures DVT/VTE Risk/Contraindication: Risk Factor Score Per Nursin Contraindications-Pharm: Other *list below* Contraindications-Mechi: Other *list below* Other: gross wounds on lower legs, cannot place compression or scds, waiting on labs before ordering MICHI Gray MD Jul 27, 2018 16:44
[2018-07-27] MEDS: inSUlin DETERMIR 1 UNIT/0.01 ML (LEVEMIR) CHARGE PER UNIT SQ SCH (16:51)
[2018-07-27 18:10] VITALS: BP 138/70
[2018-07-27] MEDS: predniSONE 20 MG TAB PO SCH (23:06)
[2018-07-27] MEDS: MIRTAZAPINE 15 MG (REMERON) TAB PO SCH ×2 (23:06→23:08)
[2018-07-27] MEDS: POLYETHYLENE GLYCOL 17 GM (MIRALAX) PACK PO SCH (23:06)
[2018-07-27] MEDS: traZODone 50 MG (DESYREL) TAB PO SCH (23:07)
[2018-07-28 06:09] VITALS: BP 127/62
[2018-07-28 06:10] LABS: HEMATOCRIT 27 % (40-54); HEMOGLOBIN 8.3 G/DL (13.3-17.7); MEAN CORPUSCULAR HEMOGLOBIN 27 PG (25-34); MEAN CORPUSCULAR HGB CONC 31 G/DL (32-36); MEAN CORPUSCULAR VOLUME 85 FL (80-99); RED BLOOD COUNT 3.12 10^6/uL (4.35-5.85); RED CELL DISTRIBUTION WIDTH 17.4 % (10.0-14.5); WHITE BLOOD COUNT 8.4 10^3/uL (4.3-11.0)
[2018-07-28 06:12] LABS: PLATELET COUNT 31 10^3/uL (130-400)
[2018-07-28 06:25] LABS: ALANINE AMINOTRANSFERASE 62 U/L (0-55); ALBUMIN 2.3 GM/DL (3.2-4.5); ALKALINE PHOSPHATASE 116 U/L (40-136); BILIRUBIN,TOTAL 3.4 MG/DL (0.1-1.0); BUN/CREATININE RATIO 44; CALCIUM 7.6 MG/DL (8.5-10.1); CARBON DIOXIDE 36 MMOL/L (21-32); CHLORIDE 96 MMOL/L (98-107); GFR ESTIMATED > 60; GLUCOSE 185 MG/DL (70-105); SODIUM 138 MMOL/L (135-145); TOTAL PROTEIN 4.8 GM/DL (6.4-8.2)
[2018-07-28] MEDS: RT-ALBUTEROL SULF 2.5 MG/3 ML PRE-MIX VIAL INH SCH (07:09)
[2018-07-28] MEDS: LACTOBACILLUS ACIDOPHILUS (PROBIOTIC) CAPSULE PO SCH (07:14)
[2018-07-28] MEDS: hydrOXYzine (VISTARIL) 25 MG CAP PO SCH (07:14)
[2018-07-28] MEDS: inSUlin ASPART (NovoLOG) 1 UNIT/0.01 ML (CHARGE PER UNIT) SC SCH ×2 (07:14→11:54)
[2018-07-28] MEDS: PANTOPRAZOLE 20 MG TABLET (PROTONIX) PO SCH (07:14)
[2018-07-28] MEDS ORDERED: LACTULOSE SYRUP 10GM/15ML (ENULOSE) 30ML UDC PO ONE (08:45)
[2018-07-28] MEDS: predniSONE 20 MG TAB PO SCH (08:55)
[2018-07-28] MEDS: PATCH REMOVAL TP SCH (08:55)
[2018-07-28] MEDS: RIFAXIMIN 550 MG TABLET (XIFAXAN) PO SCH (08:55)
[2018-07-28] MEDS: NICOTINE 7 MG (NICODERM) PATCH TD SCH (08:55)
[2018-07-28] MEDS: FUROSEMIDE 40 MG/4 ML INJ (LASIX) IVP SCH (08:55)
[2018-07-28] MEDS ORDERED: MORP-33 PO (08:56)
[2018-07-28] MEDS ORDERED: LACT10SO PO (08:56)
[2018-07-28] MEDS ORDERED: HYDR-3781 PO (08:56)
[2018-07-28] MEDS ORDERED: LACT1CAP7 PO (08:56)
[2018-07-28] MEDS ORDERED: PRD20T PO (08:56)
[2018-07-28] MEDS ORDERED: INSU100V16 SC (08:56)
[2018-07-28] MEDS ORDERED: MIRT15TA6 PO (08:56)
[2018-07-28] MEDS ORDERED: MORP15TA PO (09:03)
--- NOTE | 2018-07-28 09:06 | Discharge Inst-Skilled Nursing ---
Discharge Inst-Skilled NF Patient Instructions Patient Problems: HEPATOCELLULAR CARCINOMA CHRONIC PAIN CONSTIPATION EDEMA DIABETES MELLITUS LIVER FAILURE MEDICATION REACTION WITH WOUNDS ON LEGS GENERALIZED WEAKNESS PRURITIS Patient Instructions: INCREASED STRENGTH CONTROLLED PAIN, WOUND IMPROVEMENT ON LEGS Consult/Follow Up/Orders Follow [facility] Appt.: [facility] I certify that SNF services are required to be given on an inpatient basis because of the above named patient's need for penitentiary care on a continuing basis for the conditions(s) for which he/she was receiving inpatient hospital services prior to his/her transfer to the SNF. Residential Facility Order: Nursing Services, [facility] Specialist-Evaluate & Treat, Physical Therapy-Evaluate & Treat Discharge Diet: Regular Diet Daily Activity as Tolerated: Yes New & Resume Previous Orders New & Resume Previous Orders WOUND CARE FROM HOSPITAL FAXED OVER A LIST OF TREATMENTS FOR HIS LEGS HE WILL NEED ADAPTIC ON CLEANSED WOUNDS, THEN AQUACELL ON TOP OF ADAPTIC, THEN ABD PADS, THEN KERLEX, THEN COMPRESSION WRAP - THIS NEEDS CHANGED DAILY OR PRN IF DRESSINGS SOAKED (JUST CHANGE ABD AND KERLEX IF DRESSING IS SOAKED) Brittany Lyn Jul 28, 2018 09:03 BRITTANY LYN MD Jul 28, 2018 09:06
--- NOTE | 2018-07-28 09:07 | Discharge Summary ---
Diagnosis/Chief Complaint Date of Admission Jul 21, 2018 at 10:05 Date of Discharge Discharge Date: Jul 28, 2018 Discharge Time: 1030 Discharge Summary Discharge Physical Examination Allergies: Coded Allergies: midazolam (Verified Adverse Reaction, Unknown, 12/27/16) BEHAVORIAL Vitals & I&Os Vital Signs Date Time Temp Pulse Resp B/P (MAP) Pulse Ox O2 Delivery O2 Flow Rate FiO2 07/28/18 06:09 97.9 71 18 127/62 (83) 99 Nasal Cannula 2.00 07/24/18 08:00 95 General Appearance: Alert, Oriented X3, Cooperative, No Acute Distress HEENT: Atraumatic, PERRLA Respiratory: Clear to Auscultation, Other (DECREASED AIR MOVEMENT AT BSE) Cardiovascular: Regular Rate Abdominal: Normal Bowel Sounds, Soft, Other (LIVER EDGE PALPATED IN RIGHT LATERAL MID ABDOMEN, NONTENDER, NO FLUID WAVE) Extremities: Other (IMPROVED EDEMA - ONLY TRACE EDEMA OF LATERAL THIGHS) Skin: Other (IMPROVED ULCERATION, IMPROVED ERYTHEMA OF BILATERAL LOWER LEGS, STILL WITH SOME MACERATION OF TISSUE IN MEDIAL ASPECT OF WOUND ON LEGS) Psych/Mental Status: Mental Status NL, Mood NL Hospital Course Pending Labs Laboratory Tests 07/28/18 05:26: Glucometer 194 07/28/18 06:00: White Blood Count 8.4, Red Blood Count 3.12, Hemoglobin 8.3, Hematocrit 27, Mean Corpuscular Volume 85, Mean Corpuscular Hemoglobin 27, Mean Corpuscular Hemoglobin Concent 31, Red Cell Distribution Width 17.4, Platelet Count 31, Mean Platelet Volume , Sodium Level 138, Potassium Level 4.0, Chloride Level 96 , Carbon Dioxide Level 36, Anion Gap 6, Blood Urea Nitrogen 31, Creatinine 0.70 , Estimat Glomerular Filtration Rate > 60, BUN/Creatinine Ratio 44, Glucose Level 185, Calcium Level 7.6, Corrected Calcium 9.0, Total Bilirubin 3.4, Aspartate Amino Transf (AST/SGOT) 68, Alanine Aminotransferase (ALT/SGPT) 62, Alkaline Phosphatase 116, Total Protein 4.8, Albumin 2.3 Discharge Instructions to patient/family Please see electronic discharge instructions given to patient. Discharge Medications Reviewed and agree with Discharge Medication list on patient's Discharge Instruction sheet Clinical Quality Measures DVT/VTE Risk/Contraindication: Risk Factor Score Per Nursin Contraindications-Pharm: Other *list below* Contraindications-Mechi: Other *list below* Other: gross wounds on lower legs, cannot place compression or scds, waiting on labs before ordering anticoag BRITTANY RIOS MD Jul 28, 2018 09:07
[2018-07-28] MEDS: morphine ER 15 MG (MS CONTIN) TAB PO PRN (09:53)
--- NOTE | 2018-07-28 11:04 | Therapy Team Discharge Summary ---
Therapy Discharge Summary Discharge Recommendations Date of Discharge 07/28/2018 Therapy D/C Recommendations: Home w/ Family Support Physical Therapy Pt admitted to [facility] for medical management and skilled therapies. upon admit, he was mod indep with transfers and ambulated short distances with min assist. His participation waxed and waned. Pt did not agree to therapy last 2 visit attempts, therefore, unable to reassess goals. Pt to discharge to [facility] this date. PT Coordinating Producer Goals Coordinating Producer Goals PT Coordinating Producer Goals Time Frame: Jul 28, 2018 Transfers (B,C,W/C) (FIM): 6 Sit to Lying (QC): 6 Lying-Sitting on Side/Bed(QC): 6 Sit to Stand (QC): 6 Rollin Chair/Jvy-ll-Wawwa Xfer(QC): 6 Gait (FIM): 2 Distance: 50' Walk 50ft with 2 Turns (QC): 4 Gait Level of Assist: 5 Gait Assistive Device: None, FWW Pt has refused therapy last 2 visit attempts. Unable to assess goals. OT Coordinating Producer Goals Coordinating Producer Goals 1=Demonstrate adherence to instructed precautions during ADL tasks. 2=Patient will verbalize/demonstrate understanding of assistive devices/ modifications for ADL. 3=Patient will improve strength/tolerance for activity to enable patient to perform ADL's. LINH ARIAS PT Jul 28, 2018 11:04
[2018-07-28 11:56] VITALS: BP 127/62
== END 2018-07-28 11:55 | DRG 607 ==
LOC: 4TH 10:05
PROVIDERS: ADMIT Family Medicine; ATTEND Family Medicine
DX: L30.8 Other specified dermatitis (principal); T45.1X5A Adverse effect of antineoplastic and immunosuppressive drugs, initial encounter; L03.115 Cellulitis of right lower limb; L03.116 Cellulitis of left lower limb; C22.0 Liver cell carcinoma; C78.01 Secondary malignant neoplasm of right lung; C78.02 Secondary malignant neoplasm of left lung; K70.31 Alcoholic cirrhosis of liver with ascites; K72.10 Chronic hepatic failure without coma; D61.818 Other pancytopenia; G89.4 Chronic pain syndrome; M54.9 Dorsalgia, unspecified; F41.9 Anxiety disorder, unspecified; F32.9 Major depressive disorder, single episode, unspecified; E11.43 Type 2 diabetes mellitus with diabetic autonomic (poly)neuropathy; I12.9 Hypertensive chronic kidney disease with stage 1 through stage 4 chronic kidney disease, or unspecified chronic kidney disease; N18.9 Chronic kidney disease, unspecified; J44.1 Chronic obstructive pulmonary disease with (acute) exacerbation; F17.200 Nicotine dependence, unspecified, uncomplicated; K21.9 Gastro-esophageal reflux disease without esophagitis; R60.9 Edema, unspecified; F10.27 Alcohol dependence with alcohol-induced persisting dementia; Z86.19 Personal history of other infectious and parasitic diseases; B19.20 Unspecified viral hepatitis C without hepatic coma; K59.00 Constipation, unspecified
CPT/HCPCS: 36415; 76705; 80053; 82962; 83735; 85027; 94640; 94760

== ENCOUNTER 2018-07-30 10:48 | Inpatient (IN) | payer MEDICARE, MEDICAID ==
[~2018-07-30 10:48] MED LIST changes: +HYDR-3781 PO; +INSU100V16 SC; +LACT1CAP7 PO; +PRD20T PO
[2018-07-30] MEDS ORDERED: morphine INJ 4 MG/ML 1 ML (VIAL/SYRINGE) IVP PRN (12:15)
[2018-07-30] MEDS ORDERED: MORP-33 PO (12:53)
[2018-07-30] MEDS ORDERED: ACID1TAB5 PO (12:53)
[2018-07-30] MEDS ORDERED: NS IV 1000 ML 1,000 ML IV SCH (13:25)
[2018-07-30] MEDS ORDERED: ACETAMINOPHEN 650 MG SUPP (TYLENOL) PR PRN (13:30)
[2018-07-30] MEDS ORDERED: BISACODYL 10 MG SUPP (DULCOLAX) PR PRN (13:30)
[2018-07-30] MEDS ORDERED: SALIVA STIMULANT MOUTH SPRAY (BIOTENE) 1.5 OZ MM PRN (13:30)
[2018-07-30] MEDS ORDERED: PROMETHAZINE INJ 25 MG/ML (PHENERGAN) AMP IVP PRN (13:30)
[2018-07-30] MEDS ORDERED: ONDANSETRON 4 MG/2 ML (SDV) Z0FRAN IVP PRN (13:30)
[2018-07-30] MEDS ORDERED: RT-ALBUTEROL/IPRATROPIUM 3 ML (DUONEB) VIAL INH PRN (13:30)
[2018-07-30] MEDS ORDERED: ONDANSETRON 4 MG/2 ML (SDV) Z0FRAN IV PRN (13:30)
[2018-07-30] MEDS ORDERED: METOCLOPRAMIDE INJ 10 MG/2 ML (REGLAN) IV PRN (13:30)
[2018-07-30] MEDS ORDERED: ARTIFICAL TEARS 0.4 ML UNIT DOSE (REFRESH PLUS) OU PRN (13:30)
[2018-07-30] MEDS ORDERED: diphenhydrAMINE 50 MG/ML INJ (BENADRYL) IV PRN (13:30)
[2018-07-30] MEDS ORDERED: GLYCOPYRROLATE 0.2 MG/ML (ROBINUL) 2 ML VIAL IV PRN (13:30)
--- NOTE | 2018-07-30 13:42 | History & Physicial ---
History of Present Illness History of Present Illness Reason for visit/HPI PT IS A 62 Y/O MALE WHO IS WELL KNOWN TO ME FROM CLINIC AND RECENT HOSPITALIZATION FOR WOUNDS ON HIS LEGS. HE WAS DISCHARGED TO THE [facility] IN [place] FOR CONTINUED WOUND CARE AND STRENGTHENING. APPARENTLY HE HAD BEEN FALLING SINCE HE WAS DISCHARGED - HE FELL WHEN HE GOT THERE, TWO TIMES YESTERDAY AND ONE OR TWO TIMES TODAY WITH THE FINAL FALL RESULTING IN A LEFT HIP FRACTURE. HE WAS EVALUATED AT THE [place] ER AND FOUND TO HAVE LEFT INTERTROCHANTERIC HIP FRACTURE, CHRONICALLY LOW PLATELETS AND WAS TRANSFERRED TO [facility] FOR FURTHER WORK-UP/MANAGEMENT. Date of Admission Jul 30, 2018 at 11:55 Date Seen by a Provider: Jul 30, 2018 Time Seen by a Provider: 12:40 I consulted on this patient on 07/30/18 1240 Attending Physician Brittany Lyn MD Admitting Physician Brittany Lyn MD Consult Allergies and Home Medications Allergies Coded Allergies: midazolam (Verified Adverse Reaction, Unknown, 12/27/16) BEHAVORIAL Home Medications Albuterol Sulfate 18 Gm Hfa.aer.ad, 2 PUFF IH Q6H PRN for SHORTNESS OF BREATH, ( Reported) Cholecalciferol (Vitamin D3) 2,000 Unit Capsule, 2,000 UNIT PO 1200, (Reported) Desvenlafaxine Succinate 100 Mg Tab.er.24h, 100 MG PO 1200, (Reported) Furosemide 20 Mg Tablet, 20 MG PO BID, (Reported) Hydroxyzine Pamoate 25 Mg Capsule, 25 MG PO Q8HR PRN for ITCHING Prescribed by: BRITTANY LYN on 07/28/18 0856 Insulin Aspart 100 Unit/1 Ml Susp, 0 UNIT SC ACHS FSBS 180-200 4UNITS, FSBS 201-250 6UNITS, FSBS 251-300 8UNITS, FSBS 301-350 10UNITS, FSBS 351-400 12UNITS, >/= [address] Prescribed by: BRITTANY LYN on 07/28/18 0856 Insulin Glargine,Hum.rec.anlog 100 Unit/1 Ml Insuln.pen, 14 UNITS SC HS, ( Reported) Ipratropium/Albuterol Sulfate 3 Ml Ampul.neb, 3 ML NEB TID PRN for SHORTNESS OF BREATH, (Reported) L. Acidophilus/Bulgaricus 1 Each Tab.chew, 1 TAB.CHEW PO BID, (Reported) Lactulose 10 Gm/15 Ml Solution, 10 GM PO DAILY Prescribed by: BRITTANY LYN on 07/28/18855 Mirtazapine 15 Mg Tablet, 15 MG PO HS Prescribed by: BRITTANY LYN on 07/28/18855 Morphine Sulfate 15 Mg Tablet, 15 MG PO BID@1200,1800 PRN for PAIN-BREAKTHROUGH PT HAS METASTATIC HEPATOCELLULAR CARCINOMA THIS RX IS FOR THE BREAK THROUGH PAIN Prescribed by: BRITTANY LYN on 07/28/18902 Morphine Sulfate 15 Mg Tablet.er, 15 MG PO 0600,1400,2200, (Reported) Nicotine 1 Each Patch.td24, 7 MG TD DAILY, (Reported) Pantoprazole Sodium 20 Mg Tablet.dr, 20 MG PO DAILY, (Reported) Potassium Chloride 20 Meq Tab.er.prt, 20 MEQ PO 1200, (Reported) Prednisone 20 Mg Tab, 20 MG PO UD 20MG TWICE DAILY X10 DAYS THEN DECREASE BY 1/2 PILL EVERY 10 DAYS UNTIL RX IS GONE Prescribed by: BRITTANY LYN on 07/28/18855 Rifaximin 550 Mg Tablet, 550 MG PO BID, (Reported) Trazodone HCl 50 Mg Tablet, 50 MG PO HS, (Reported) Patient Home Medication List Home Medication List Reviewed: Yes Past Pgttwhb-Zvyuju-Kegbji Hx Patient Social History Marrital Status: Number of Children: 0 Number of living children: 0 Living Status: JUST MOVED TO P[facility]ENT[facility] IN [place] Employed/Student: retired Alcohol Beverage of Choice: Beer Smoking Status: Current Everyday Smoker Former Smoker, Quit: Sep 02, 2016 Type Used: Cigarettes 2nd Hand Smoke Exposure: No Physical Abuse Screen: No Sexual Abuse: No Recent Foreign Travel: No Contact w/other who traveled: No Recent Hopitalizations: Yes Recent Infectious Disease Expo: No Immunizations Up To Date Tetanus Booster (TDap): Less than 5yrs Pediatric: No Date of Pneumonia Vaccine: Jul 10, 2008 Date of Influenza Vaccine: May 24, 2018 Seasonal Allergies Seasonal Allergies: No Surgeries Yes (FACIAL AND HEAD RECONSTRUCTION SECONDARY TO TRAUMA PER PT;VENA CAVA FILTER, ) Vascular Surgery Respiratory Yes COPD Currently Using CPAP: No Currently Using BIPAP: No Cardiovascular Yes Hypertension Neurological Yes (MEMORY LOSS) Reproductive System Hx Reproductive Disorders: No Sexually Transmitted Disease: No HIV/AIDS: No Genitourinary No Gastrointestinal Yes (HEAPTITIS C--CHRONIC LIVER FAILURE) Gastroesophageal Reflux, Liver Disease/Jaundice, Esophageal Varices, Hepatitis, Cirrhosis Musculoskeletal Yes (CHRONIC NECK PAIN, LUMBAR COMPRESSION FRACTURE ) Chronic Back Pain, Fractures Endocrine History of Endocrine Disorders: Yes (INSULIN + ORAL MEDICATIONS) Endocrine Disorders: Diabetes, Insulin dep HEENT Loss of Vision: Denies Hearing Impairment: Denies Cancer Yes Liver Psychosocial History of Psychiatric Problem: Yes Behavioral Health Disorders: Anxiety Integumentary History of Skin or Integumenta: No Blood Transfusions History of Blood Disorders: No Adverse Reaction to a Blood Tr: No Reviewed Nursing Assessment Reviewed/Agree w Nursing PMH: Yes Family Medical History Significant Family History: Heart Disease, Hypertension Family Hx: Coronary thrombosis Myocardial infarction Review of Systems Constitutional: No chills, No fever; malaise, weakness EENTM: No hoarseness, No mouth pain, No throat pain Respiratory: No cough; dyspnea on exertion, short of breath Cardiovascular: No chest pain; edema; No palpitations Gastrointestinal: abdominal pain, constipation, jaundice, loss of appetite Genitourinary: incontinence, other (ANGELES IN PLACE) Musculoskeletal: back pain, other (LEFT HIP PAIN) Skin: other (JAUNDICE, WOUNDS ON LOWER LEGS, EXCORIATION ON THIGHS) Psychiatric/Neurological: Anxiety, Depressed, Weakness, Other (CONFUSION) All Other Systems Reviewed Negative Unless Noted: Yes Physical Exam Vital Signs Capillary Refill : Height, Weight, BMI Height: 6'0.00" Weight: 225lbs. 0.0oz. 102.157111ux; 30.5 BMI Method:Estimated General Appearance: Anxious, Chronically ill, Cachetic HEENT: PERRL/EOMI, Pharynx Normal Neck: Non Tender, Supple Respiratory: Chest Non Tender, Lungs Clear, Normal Breath Sounds, No Accessory Muscle Use, No Respiratory Distress Cardiovascular: Regular Rate, Rhythm Gastrointestinal: Non Tender, Soft, Other (ENLARGED ABDOMEN, BLOATED, NO FLUID WAVE NOTED, PALPABLE LIVER IN RIGHT MID TO LOWER ABDOMEN) Rectal: Deferred Extremity: No Calf Tenderness, Pedal Edema, Other Neurologic/Psychiatric: Alert, Other (ORIENTED TO PERSON AND PLACE NOT TIME) Skin: Jaundice, Other Assessment/Plan Assessment and Plan LEFT HIP FRACTURE METASTATIC HEPATOCELLULAR CARCINOMA TO LUNG HEPATOCELLULAR CARCINOMA THROMBOCYTOPENIA JAUNDICE LIVER FAILURE CIRRHOSIS DEMENTIA CHRONIC PAIN ASCITES LEFT HIP FRACTURE - IN THE FACE OF HIS METASTATIC HEPATOCELLULAR CARCINOMA TO LUNG, LIVER FAILURE DUE TO CIRRHOSIS, AND OVERALL WORSENING FUNCTION AND DECLINE , I HAVE DISCUSSED WITH THE PT'S SISTERS AND THE ORTHOPEDIC SURGEON ABOUT THE FEASIBILITY OF FIXING HIS HIP FRACTURE. THE RISK OF ON THE OPERATING TABLE OR SHORTLY THEREAFTER IS QUITE HIGH, AND ETHICALLY, WITH CORDELIA'S OVERWHELMING ILLNESS, SURGERY SHOULD NOT BE PURSUED. THE DIGITAL PRODUCT MANAGER ORTHOPEDIC SURGEON WAS IN AGREEMENT WITH THIS PLAN AND HIS SISTERS WERE ALSO IN AGREEMENT WITH THIS PLAN. WE WILL KEEP CORDELIA IN THE HOSPITAL ON COMFORT CARE, KEEP A MORPHINE TARGET DEVELOPER GOING TO AIDE IN HIS COMFORT, AND GIVE HIM ANXIOLYTICS TO HELP HIM GET REST AND DECREASE ANY AIR HUNGER SYMPTOMS. I WOULD ANTICIPATE, WITH HIS SIGNIFICANT DECLINE IN THE PAST WEEK, THAT CORDELIA WILL PASS AWAY IN THE HOSPITAL IN THE NEXT 4-7 DAYS. Admission Diagnosis LEFT HIP FRACTURE METASTATIC HEPATOCELLULAR CARCINOMA TO LUNG HEPATOCELLULAR CARCINOMA THROMBOCYTOPENIA JAUNDICE LIVER FAILURE CIRRHOSIS DEMENTIA CHRONIC PAIN ASCITES Admission Status: Inpatient Order (span 2 midnights) Reason for Inpatient Admission: ADMISSION FOR COMFORT CARE IN HOSPITAL WILL REQUIRE MORE THAN 2 DAYS IN HOSPITAL PRIOR TO EXPECTATION OF PT PASSING ON COMFORT CARE IN THE HOSPITAL BRITTANY LYN MD Jul 30, 2018 13:42
[2018-07-30] MEDS ORDERED: RT-ALBUTEROL SULF 2.5 MG/3 ML PRE-MIX VIAL IH PRN (13:45)
[2018-07-30] MEDS: morphine PCA 100 MG/100 ML BAG IV PRN (14:14)
[2018-07-30] MEDS: LORazepam INJ 2 MG/ML (ATIVAN) VIAL IVP SCH ×2 (14:42→21:50)
[2018-07-30] MEDS: LORazepam INJ 2 MG/ML (ATIVAN) VIAL IVP PRN (15:41)
[2018-07-30] MEDS ORDERED: morphine INJ 10 MG/ML 1ML (SYR OR VIAL) IVP NR (16:15)
[2018-07-30] MEDS ORDERED: HALOPERIDOL 5 MG/ML (HALDOL) AMP IV PRN (16:15)
[2018-07-30] MEDS: traZODone 50 MG (DESYREL) TAB PO SCH (19:38)
[2018-07-30] MEDS: MIRTAZAPINE 15 MG (REMERON) TAB PO SCH (19:38)
[2018-07-30] MEDS ORDERED: NON-FORMULARY MEDICATION 1 EA EA (Mirtazapine 15 MG) PO SCH (21:00)
[2018-07-31] MEDS: LORazepam INJ 2 MG/ML (ATIVAN) VIAL IVP SCH ×3 (05:00→20:45)
[2018-07-31] MEDS: morphine PCA 100 MG/100 ML BAG IV PRN ×2 (06:50→21:55)
[2018-07-31] MEDS ORDERED: SENNA W/DOCUSATE (SENOKOT S) TABLET PO SCH (09:00)
[2018-07-31 12:56] VITALS: BP 87/46
--- NOTE | 2018-07-31 12:57 | Progress Note-Hospitalist ---
Subjective HPI/CC On Admission Date Seen by Provider: Jul 31, 2018 Time Seen by Provider: 00:00 Subjective/Events-last exam Patient on comfort care protocol RN has no concerns No issues requiring visit. Objective Exam Vital Signs Vital Signs Date Time Temp Pulse Resp B/P (MAP) Pulse Ox O2 Delivery O2 Flow Rate FiO2 07/31/18 08:00 Room Air 07/30/18 18:19 10 07/30/18 17:07 100 93 07/30/18 11:55 2.00 Capillary Refill : Greater Than 3 Seconds General Appearance: Other (Not seen) Results/Procedures Lab Patient resulted labs reviewed. Assessment/Plan Assessment and Plan Assess & Plan/Chief Complaint End-of-life status Continue comfort care Diagnosis/Problems Diagnosis/Problems (1) End of life care Status: Acute (2) Hip fracture, left Status: Acute Qualifiers: Encounter type: initial encounter Fracture type: closed Qualified Codes: S72.002A - Fracture of unspecified part of neck of left femur, initial encounter for closed fracture (3) Status post fall Status: Acute (4) Alcoholic dementia Status: Chronic Qualifiers: Dementia behavioral disturbance: without behavioral disturbance Qualified Codes: F10.27 - Alcohol dependence with alcohol-induced persisting dementia Clinical Quality Measures DVT/VTE Risk/Contraindication: Risk Factor Score Per Nursin RFS Level Per Nursing on Admit: 2=Moderate HELEN GAXIOLA DO Jul 31, 2018 12:57
[2018-07-31] MEDS: LORazepam INJ 2 MG/ML (ATIVAN) VIAL IVP PRN (15:12)
[2018-07-31] MEDS: traZODone 50 MG (DESYREL) TAB PO SCH (19:32)
[2018-07-31] MEDS: MIRTAZAPINE 15 MG (REMERON) TAB PO SCH (19:33)
--- NOTE | 2018-08-01 12:29 | Discharge Summary-Hospitalist ---
Diagnosis/Chief Complaint Date of Admission Jul 30, 2018 at 11:55 Date of Discharge Discharge Diagnosis (1) Status: Acute (2) End of life care Status: Acute (3) Hip fracture, left Status: Acute (4) Status post fall Status: Acute (5) Alcoholic dementia Status: Chronic Discharge Summary Discharge Physical Exam Allergies: Coded Allergies: midazolam (Verified Adverse Reaction, Unknown, 07/30/18) BEHAVORIAL Vitals & I&Os Vital Signs Date Time Temp Pulse Resp B/P (MAP) Pulse Ox O2 Delivery O2 Flow Rate FiO2 07/31/18 20:00 Room Air 07/31/18 12:56 92 87/46 (60) 82 07/30/18 18:19 10 07/30/18 11:55 2.00 General Appearance: Other () Hospital Course Patient was admitted to in-pt hospice for end of life care due to hip fracture and end stage liver disease. Pt was kept comfortable and peacefully on at 0300. Labs (last 24 hrs) Patient resulted labs reviewed. Discussion & Recommendations Discharge Planning: <30 minutes discharge planning Discharge Home Medications: Active Scripts Active Morphine Sulfate 15 Mg Tablet 15 Mg PO BID@1200,1800 PRN PT HAS METASTATIC HEPATOCELLULAR CARCINOMA THIS RX IS FOR THE BREAK THROUGH PAIN Lactulose 10 Gm/15 Ml Solution 10 Gm PO DAILY Novolog (Insulin Aspart) 100 Unit/1 Ml Susp 0 Unit SC ACHS FSBS 180-200 4UNITS, FSBS 201-250 6UNITS, FSBS 251-300 8UNITS, FSBS 301-350 10UNITS, FSBS 351-400 12UNITS, >/= 400 CALL Prednisone 20 Mg Tab 20 Mg PO UD 20MG TWICE DAILY X10 DAYS THEN DECREASE BY 1/2 PILL EVERY 10 DAYS UNTIL RX IS GONE Hydroxyzine Pamoate 25 Mg Capsule 25 Mg PO Q8HR PRN Mirtazapine 15 Mg Tablet 15 Mg PO HS Reported Lactinex Chewable Tablet (L. Acidophilus/Bulgaricus) 1 Each Tab.chew 1 Tab.chew PO BID Morphine Sulfate ER (Morphine Sulfate) 15 Mg Tablet.er 15 Mg PO 0600,1400,2200 Iprat-Albut 0.5-3(2.5) mg/3 ml (Ipratropium/Albuterol Sulfate) 3 Ml Ampul.neb 3 Ml NEB TID PRN Nicotine Patch (Nicotine) 1 Each Patch.td24 7 Mg TD DAILY Basaglar Kwikpen U-100 (Insulin Glargine,Hum.rec.anlog) 100 Unit/1 Ml Insuln.pen 14 Units SC HS Pantoprazole Sodium 20 Mg Tablet.dr 20 Mg PO DAILY Potassium Chloride 20 Meq Tab.er.prt 20 Meq PO 1200 Desvenlafaxine Succinate ER (Desvenlafaxine Succinate) 100 Mg Tab.er.24h 100 Mg PO 1200 Furosemide 20 Mg Tablet 20 Mg PO BID Ventolin Hfa (Albuterol Sulfate) 18 Gm Hfa.aer.ad 2 Puff IH Q6H PRN Xifaxan (Rifaximin) 550 Mg Tablet 550 Mg PO BID Trazodone HCl 50 Mg Tablet 50 Mg PO HS Vitamin D3 (Cholecalciferol (Vitamin D3)) 2,000 Unit Capsule 2,000 Unit PO 1200 Instructions to patient/family Please see electronic discharge instructions given to patient. Clinical Quality Measures DVT/VTE Risk/Contraindication: Risk Factor Score Per Nursin RFS Level Per Nursing on Admit: 2=Moderate Problem Qualifiers (1) Hip fracture, left: Encounter type: initial encounter Fracture type: closed Qualified Codes: S72.002A - Fracture of unspecified part of neck of left femur, initial encounter for closed fracture (2) Alcoholic dementia: Dementia behavioral disturbance: without behavioral disturbance Qualified Codes: F10.27 - Alcohol dependence with alcohol-induced persisting dementia HELEN GAXIOLA DO Aug 01, 2018 12:29
== END 2018-08-01 05:00 | disposition expired | DRG 951 ==
LOC: 4TH 11:55
PROVIDERS: ADMIT Family Medicine; ATTEND Family Medicine
DX: Z51.5 Encounter for palliative care (principal); S72.142A Displaced intertrochanteric fracture of left femur, initial encounter for closed fracture; C22.0 Liver cell carcinoma; C78.00 Secondary malignant neoplasm of unspecified lung; F10.27 Alcohol dependence with alcohol-induced persisting dementia; R18.8 Other ascites; R64 Cachexia; I85.10 Secondary esophageal varices without bleeding; B18.2 Chronic viral hepatitis C; K74.60 Unspecified cirrhosis of liver; D69.6 Thrombocytopenia, unspecified; J44.9 Chronic obstructive pulmonary disease, unspecified; I10 Essential (primary) hypertension; K72.10 Chronic hepatic failure without coma; E11.9 Type 2 diabetes mellitus without complications; S81.801A Unspecified open wound, right lower leg, initial encounter; S81.802A Unspecified open wound, left lower leg, initial encounter; F41.9 Anxiety disorder, unspecified; F32.9 Major depressive disorder, single episode, unspecified; K59.00 Constipation, unspecified; M54.2 Cervicalgia; M54.9 Dorsalgia, unspecified; F17.210 Nicotine dependence, cigarettes, uncomplicated; W19.XXXA Unspecified fall, initial encounter; Y92.129 Unspecified place in nursing home as the place of occurrence of the external cause; Z79.4 Long term (current) use of insulin; Z95.828 Presence of other vascular implants and grafts